=== PATIENT | male | born 1960 | race Caucasian/White ===

== ENCOUNTER 2019-10-17 11:04 | Emergency (ER) | payer MEDICARE, SELFPAY ==
[2019-10-17] VITALS (10 sets, daily range): BP systolic 133–215; BP diastolic 67–98; PULSE 58–81; RESP 15–18; TEMP 36.7–36.8; O2SAT 94–98
--- NOTE | ~2019-10-17 | XR_ITS ---
EXAMINATION: XR foot RT min 3V EXAM DATE: 10/17/2019 11:39 INDICATION: Infection, multiple foot sores. TECHNIQUE: Right foot dorsoplantar, lateral and oblique projections obtained and reviewed. There is no prior study for comparison. FINDINGS: Right metatarsal bones unremarkable. Sizable calcaneal enthesopathy posteriorly. There ar e no bony erosions identified. There are no acute fractures or dislocations identified. There is no subcutaneous gas. The soft tissue is unremarkable. There are no radiopaque foreign bodies. IMPRESSION: No acute osseous findings. Reviewed, dictated and finalized at location A. IMPRESSION: No acute osseous findings.
[2019-10-17 11:12] LABS: Glucose Point of Care > 500 (65-105)
[2019-10-17 11:33] LABS: Basophils Absolute Auto 0.1 K/mm3 (0.0-0.1); Basophils Percent Auto 0.6 % (0.2-1.2); Eosinophils Absolute Auto 0.1 K/mm3 (0-0.3); Eosinophils Percent Auto 1.2 % (0-4.4); Hematocrit 37.3 % (42.0-52.0); Immature Granulocyte Absolute 0.12 K/mm3 (0.00-0.031); Immature Granulocyte Percent A 1.1 % (0-0.5); Lymphocytes Percent Auto 16.9 % (18.3-44.2); Mean Corpuscular HGB Conc 34.9 g/dl (32-36); Mean Corpuscular Hemoglobin 29.9 pg (26-34); Mean Corpuscular Volume 85.7 fl (80-100); Mean Platelet Volume 10.7 fl (7.4-10.4); Monocytes Absolute Auto 0.9 K/mm3 (0.1-0.6); Monocytes Percent Auto 8.1 % (2.6-8.5); Neutrophils Absolute Auto 8.1 K/mm3 (1.3-6.7); Neutrophils Percent Auto 72.1 % (45.5-73.1); Platelet Count Result 250 k/mm3 (150-375); Red Blood Count 4.35 M/mm3 (4.6-6.20); Red Cell Distribution Width 11.7 % (11.5-14.5); White Blood Count 11.2 K/mm3 (4.5-10.0)
--- NOTE | 2019-10-17 11:33 | ED.RECABL ---
HPI - Recheck/Abnormal Lab/Rx General Chief Complaint: Recheck/Abnormal Lab/Rx Stated Complaint: High Blood Sugar Time Seen by Provider: 10/17/19 11:23 History of Present Illness HPI narrative: 59 yo male w/ h/o type II DM, peripheral vascular disease presents for non-healing wound. He has had a wound on his left second toe for a couple of weeks. He believes that it started when he kicked something, although he has severe neuropahty and he is nt sure. Since then the wound initially appeared to be improving, but has not progressed. Additionally he has a wound to the right lateral maleolus. He was previously seen by a vascular surgeon and told that he would likely need surgery for his PAD. Related Data Home Medications Medication Instructions Recorded Confirmed Januvia 100 mg PO DAILY 03/04/19 03/04/19 [place]-3 Fish Oil 1 cap PO DAILY 03/04/19 03/04/19 ascorbic acid (vitamin C) 1 g PO DAILY 03/04/19 03/04/19 aspirin 81 mg PO DAILY 03/04/19 03/04/19 atorvastatin 40 mg PO DAILY 03/04/19 03/04/19 clopidogrel 75 mg PO DAILY 03/04/19 03/04/19 divalproex 500 mg PO DAILY 03/04/19 03/04/19 glipizide 10 mg PO BID 03/04/19 03/04/19 melatonin 10 mg PO HS 03/04/19 03/04/19 omeprazole 20 mg PO DAILY 03/04/19 03/04/19 paroxetine HCl 20 mg PO DAILY 03/04/19 03/04/19 ramipril 10 mg PO DAILY 03/04/19 03/04/19 spiron[place]-hydrochlorothiaz 1 tablet PO DAILY 03/04/19 03/04/19 carvedilol [Coreg] 25 mg PO BIDWM 10/17/19 indapamide 2.5 mg PO DAILY 10/17/19 Allergies Allergy/AdvReac Type Severity Reaction Status Date / Time No Known Allergies Allergy Verified 10/17/19 11:10 Review of Systems Review of Systems: All systems reviewed & are unremarkable except as noted in HPI and below Constitutional: Constitutional: Denies chills and Denies fever(s) Cardiovascular: Cardiovascular: Denies chest pain Respiratory: Respiratory: Denies dyspnea Gastrointestinal: Gastrointestinal: Denies abdominal pain and Denies nausea Musculoskeletal: Musculoskeletal: Reports back pain Neurologic: Denies dizziness, Reports numbness and Denies weakness Endocrine: Endocrine: Denies polydipsia and Denies polyuria [facility] Past Medical History Medical History CAD (coronary artery disease) CVA (cerebral vascular accident) Multiple with residual left-sided weakness Diabetes mellitus Diabetic peripheral neuropathy 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 GERD (gastroesophageal reflux disease) HTN (hypertension) Myocardial infarction Peripheral artery disease Two stents in the left lower extremity 1 stent in the right lower extremity with peripheral stents placed sometime between 2012 2014 UTI (urinary tract infection) Vascular dementia Surgical History Surgical History H/O cardiac catheterization H/O heart artery stent 2018 S/P CABG x 18 November 2001 Family History Family History Mother Acute myocardial infarction Cerebrovascular accident Diabetes mellitus Hypertension Sibling Acute myocardial infarction AIDS Sibling AIDS Social History Social History Smoking status: Never smoker Second hand tobacco smoke exposure: Yes Alcohol intake: former Substance use: never Substance use type: does not use Gender identity (if verbalized by the patient): Male Spiritual care concerns: No Agree to blood products: Yes Exam Const: General: no acute distress, alert and ill appearing Orientation/consciousness: patient oriented x3 HENMT: Head: normal to inspection Neck: Neck: normal visual inspection and no lymphadenopathy Chest: Chest palpation & inspection: no tenderness Resp: Effort & Inspection: normal respiratory effort Auscultation: clear to auscultation bilaterally, no rales, no rhonchi and no wheezes Cardio: Jug
--- NOTE | 2019-10-17 11:36 | PC.NURSE ---
Doppler used and pedal pulses found in left foot, unable to obtain pedal pulses in right foot. Dr. Wyatt notified.
[2019-10-17 11:47] LABS: Alanine Aminotransferase 14 U/L (4-50); Albumin Level 4.2 g/dL (3.5-5.1); Alkaline Phosphatase 113 U/L (38-126); Anion Gap 17.8 mmol/L (7-16); Aspartate Amino Transferase 18 U/L (17-59); Bilirubin,Total 0.7 mg/dL (0.2-1.3); Blood Urea Nitrogen 27 mg/dL (9-20); Calcium 9.5 mg/dL (8.4-10.2); Carbon Dioxide 29 mmol/L (22-30); Chloride 85 mmol/L (98-107); Estimated CRCL calculation 55 ml/min; Estimated Glomerular Filt Rate 52; Magnesium 1.8 mg/dL (1.6-2.3); Phosphorus 4.7 mg/dL (2.5-4.5); Potassium 4.8 mmol/L (3.4-5.0); Sodium 127 mmol/L (137-145)
[2019-10-17 11:53] LABS: Beta-Hydroxybutyrate/Acetoacetate 0.71 mmol/L (0.02-0.27)
[2019-10-17 11:57] LABS: Glucose Point of Care > 500 (65-105)
[2019-10-17] MEDS: SODIUM CHLORIDE 0.9% IV 1,000 ML 999 ML IV CONT ×2 (12:00→14:07)
[2019-10-17 12:04] LABS: Glucose 613 mg/dL (75-110)
[2019-10-17] MEDS: INSULIN HUMAN REGULAR (*BKC) 100 UNITS/ML 12 UNITS IV PUSH (12:15)
--- NOTE | 2019-10-17 13:05 | PC.NURSE ---
Patient refusing to be straight cath at this time. Dr. Wyatt notified.
[2019-10-17 13:12] LABS: Glucose Point of Care 359 (65-105)
[2019-10-17 13:58] LABS: Add Urine Microscopic? YES; Appearance Urine Clear (Clear); Bilirubin Urine Negative (Negative); Blood Urine Negative (Negative); Color Urine Straw (Yellow); Glucose Urine UA 3+ mg/dL (Negative); Ketones Urine Trace mg/dL (Negative); Leukocyte Esterase Ur Negative LEU/UL (Negative); Nitrate Urine Negative (Negative); Protein Urine 1+ mg/dL (Negative); RBC Urine 0-2 /hpf (0-2); Specific Grav Ur 1.018 (1.001-1.035); Squamous Epithelial Cell Urine Rare /hpf (Few); Urobilinogen Urine Negative mg/dL (<2.0); WBC Urine 0-3 /hpf
[2019-10-17 15:08] LABS: Glucose Point of Care 262 (65-105)
[2019-10-17 18:40] LABS: Glucose Point of Care 217 (65-105)
--- NOTE | 2019-10-17 19:18 | PC.NURSE ---
report received at this time. pt resting on stretcher in NAD. pt denies any needs/concerns. remains hooked up to monitor, will continue to monitor pt for baseline status changes.
--- NOTE | 2019-10-17 21:24 | PC.NURSE ---
called [facility] for update on ETA. ETA [id number]
[2019-10-17 21:46] LABS: Glucose Point of Care 309 (65-105)
--- NOTE | 2019-10-17 21:46 | PC.NURSE ---
[facility] ETA update is [id number]
--- NOTE | 2019-10-17 22:25 | PC.NURSE ---
pt ambulatory to restroom at this time without difficulty.
--- NOTE | 2019-10-17 23:09 | PC.NURSE ---
pt resting on stretcher at this time-updated on poc and transport delay. denies questions/concerns. RR even and unlabored, pt in NAD.
--- NOTE | 2019-10-17 23:12 | PC.NURSE ---
called [facility] for update. ETA [id number]
[2019-10-17 23:38] LABS: Glucose Point of Care 350 (65-105)
[2019-10-17] MEDS: INSULIN ASPART (*BKC) 100 UNITS/ML 6 UNITS SUB-Q (23:41)
== END 2019-10-17 23:59 | disposition short-term general hospital (02) ==
LOC: ANHED 11:45
PROVIDERS: Emergency Provider Emergency Medicine; PCP Internal Medicine
DX: E11.65 Type 2 diabetes mellitus with hyperglycemia (principal); I77.1 Stricture of artery; I25.10 Atherosclerotic heart disease of native coronary artery without angina pectoris; I69.954 Hemiplegia and hemiparesis following unspecified cerebrovascular disease affecting left non-dominant side; E11.42 Type 2 diabetes mellitus with diabetic polyneuropathy; K21.9 Gastro-esophageal reflux disease without esophagitis; I25.2 Old myocardial infarction; Z95.5 Presence of coronary angioplasty implant and graft; I10 Essential (primary) hypertension; E11.51 Type 2 diabetes mellitus with diabetic peripheral angiopathy without gangrene; Z95.1 Presence of aortocoronary bypass graft; Z79.84 Long term (current) use of oral hypoglycemic drugs; Z79.82 Long term (current) use of aspirin
CPT/HCPCS: 36415; 73630; 80053; 81001; 82010; 82948; 83735; 84100; 85025; 96361; 96365; 96366; 96367; 96375; 99285; J0743; J1815; J3370; J7030

== ENCOUNTER 2022-09-14 19:52 | Inpatient (IN) | payer MEDICARE, SELFPAY ==
[2022-09-14] VITALS (9 sets, daily range): BP systolic 185–244; BP diastolic 87–97; PULSE 76–92; RESP 14–22; TEMP 37–37.6; O2SAT 90–98; BMI 31.4
--- NOTE | ~2022-09-14 | CT_ITS ---
EXAMINATION: CTA brain carotid DATE: 09/14/2022 20:47 INDICATION: CVA w/ L sided weakness TECHNIQUE: Computed tomographic angiography (CTA) of the head and neck was performed with 100 mL Omni paque-350 intravenous contrast. Automated exposure control and iterative reconstruction technique wer e employed. The dose-length product was 1188.67 mGy-cm. Maximum intensity projection and volume rende red 3D-reconstructions were created by the technologist on a separate workstation. COMPARISON: CT brain, same date CTA brain carotid 03/03/2019. FINDINGS: CTA HEAD: No large vessel occlusion, aneurysm, high flow vascular malformation, nidus or extravasation. Moderat e cavernous carotid calcifications, without severe stenosis. Patent cerebral veins. Symmetric parench ymal enhancement. CTA NECK: Aortic arch and proximal great vessels: Moderate arch ectasia. Mild arch calcification. Right common carotid, carotid bifurcation, and internal carotid artery: Calcified plaque at the bifur cation.There is 49% stenosis of the proximal right internal carotid artery relative to normal distal artery lumen diameter (NASCET criteria). Left common carotid, carotid bifurcation, and internal carotid artery: Calcified plaque at the bifurc ation.There is 0% stenosis of the proximal left internal carotid artery relative to normal distal art jovita lumen diameter (NASCET criteria). 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 Stable chronic short segment calcified severe stenosis of the mid left intradural vertebral artery. Other findings: Dilated central pulmonary arteries as can be seen with pulmonary arterial hypertensio n. Right dependent atelectasis/scar. Right dependent pleural thickening. IMPRESSION: No acute large vessel occlusion. 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 Chronic severe short segme nt stenosis of the left intradural vertebral artery. Calcified plaque at the right carotid bifurcation causing 49 % stenosis. Reviewed, dictated and finalized at location K. IMPRESSION: No acute large vessel occlusion. 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 Calcified plaque at the right carotid bifurcation causing 49 % stenosis.
--- NOTE | ~2022-09-14 | XR_ITS ---
EXAMINATION: XR hand LT 2V, XR wrist LT 2V DATE: 09/16/2022 08:34 INDICATION: Left hand and wrist swelling and erythema TECHNIQUE: 1. Posteroanterior and lateral views of the left wrist were obtained. 2. Dorsal palmar and lateral views of the left hand were obtained. COMPARISON: None. FINDINGS: Alignment of the hand and wrist is normal. No fracture identified. There is mild osteoarthritis jacky acterized by mild nonuniform joint space narrowing and small marginal osteophytes at the majority of the joints at the left hand and wrist. There are multiple juxta articular erosions with sclerotic mar gins and overhanging edges including at the lunate, capitate and scaphoid, the head of the second met acarpal and at the heads of the second and fourth proximal phalanges. Vascular calcification along th e ulnar artery. No focal soft tissue swelling. IMPRESSION: 1. Several juxta articular erosions at the left hand and wrist, disproportionate to the mild joint sp chuy narrowing, the latter which appears related to mild polyarticular osteoarthritis. This pattern an d appearance would be most consistent with gout or other crystalline arthropathy. Reviewed, dictated and finalized at location A. IMPRESSION: 1. Several juxta articular erosions at the left hand and wrist, disproportionat e to the mild joint space narrowing, the latter which appears related to mild p olyarticular osteoarthritis. This pattern and appearance would be most consiste nt with gout or other crystalline arthropathy.
--- NOTE | ~2022-09-14 | CT_ITS ---
EXAMINATION: CT brain wo con DATE: 09/14/2022 20:01 INDICATION: altered mental . TECHNIQUE: Computed tomography (CT) of the head was performed without intravenous contrast. The mA wa s adjusted according to patient size. Iterative reconstruction technique was employed. The dose-lengt h product was 681.00 mGy-cm. COMPARISON: CT brain carotid 03/03/2019; MR brain 03/05/2019. FINDINGS: No acute intracranial hemorrhage or extra-axial fluid collection. No hydrocephalus, mass, or herniation. No acute ischemic infarct. Unremarkable dural venous sinus attenuation. No acute osseous abnormality. The aerated spaces are clear. Moderate atrophy and chronic white matter change. Atherosclerotic intracranial calcification. Old foc al infarct in the bilateral basal ganglia, jamie, and right posterior white matter. IMPRESSION: No acute intracranial process. Results reported telephonically to Dr. Gomez by Dr. Lobo at 8:13 PM on 09/14/2022. Reviewed, dictated and finalized at location K. IMPRESSION: No acute intracranial process. Results reported telephonically to Dr. Gomez by Dr. Lobo at 8:13 PM on 023.
--- NOTE | ~2022-09-14 | CT_ITS ---
EXAMINATION: CT diagnostic chest wo con DATE: 09/15/2022 11:47 INDICATION: Cough TECHNIQUE: Computed tomography (CT) of the chest was performed without intravenous contrast. The dose -length product (DLP) was 771.92 mGy-cm. Automated exposure control and iterative reconstruction tech nique were employed. COMPARISON: None FINDINGS: There is mild dependent atelectasis of the lungs. Small pleural effusions are present. Ther e is no pneumothorax. The heart size is normal. There are no pathologically enlarged thoracic lymph n odes. Calcified coronary artery atherosclerosis is noted. There is [id number] bilateral gynecom astia. Calcified mediastinal lymph nodes are consistent with old granulomatous disease. There is a mi dline epigastric hernia containing fat. There are bridging osteophytes at multiple levels in the spin e, consistent with diffuse idiopathic skeletal hyperostosis (DISH). IMPRESSION: 1. Trace pleural effusions. Reviewed, dictated and finalized at location A. IMPRESSION: 1. Trace pleural effusions.
--- NOTE | ~2022-09-14 | MR_ITS ---
EXAMINATION: MR brain/brain stem wo con DATE: 09/15/2022 11:29 INDICATION: Stroke TECHNIQUE: Magnetic resonance imaging (MRI) of the brain and brainstem was performed without intraven ous contrast. Sequences included sagittal and axial T1-weighted SE, axial diffusion-weighted FS SE, a xial T2*-weighted GRE, axial T2-weighted FLAIR, and axial T2-weighted FSE. Apparent diffusion coeffic ient (ADC) maps were created. COMPARISON: Brain MR dated 03/05/[address] angiogram of the brain dated 09/04/2022 FINDINGS: There are no areas of restricted diffusion to suggest acute infarction. A couple small old lacunar in farcts in the right frontal lobe cam radiata. Additional small old lacunar infarcts at the left an d right sides of the jamie. There is a small region with cortical T2 hyperintensity more subtle T1 hyp erintensity along a gyrus the left occipital lobe most likely sequela of a small chronic infarct with secondary laminar necrosis. Small old lacunar infarct in the right frontal lobe cam radiata. No i ntracranial hemorrhage or abnormal intracranial mass lesion. There are scattered areas of nonspecific increased T2-weighted signal intensity in the cerebral white matter, predominantly involving the ben p and periventricular white matter. There are no intraparenchymal signal abnormalities seen on the ot her pulse sequences. The ventricles are symmetric and normal in size. There are no abnormal extra-axi al fluid collections. With the exception of the chronically thrombosed intracranial right vertebral a rtery, there are flow voids seen in the cerebral arteries on the T2-weighted sequences consistent wit h their expected patency. Visualized orbits and soft tissues are unremarkable. IMPRESSION: 1. No acute intracranial process. 2. Small old infarcts in the right frontal lobe white matter, bilateral jamie and left occipital lobe. 3. 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 Reviewed, dictated and finalized at location A. IMPRESSION: 1. No acute intracranial process. 2. Small old infarcts in the right frontal lobe white matter, bilateral jamie an d left occipital lobe. 3. 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
--- NOTE | ~2022-09-14 | US_ITS ---
EXAMINATION: US renal BI DATE: 09/15/2022 09:46 INDICATION: Acute kidney injury TECHNIQUE: Multiple grayscale and Doppler ultrasound images of the kidneys were obtained. COMPARISON: None. FINDINGS: The right kidney measures 11.0 x 6.8 x 5.7 cm. The left kidney measures 10.9 x 6.5 x 5.1 cm . The kidneys demonstrate normal parenchymal echogenicity. There is no hydronephrosis. The bladder is mildly distended but otherwise normal in appearance. IMPRESSION: 1. Normal kidneys without hydronephrosis. Reviewed, dictated and finalized at location A.
--- NOTE | ~2022-09-14 | XR_ITS ---
EXAMINATION: XR chest 1V portable Exam Date/Time: 09/14/2022 20:15 CDT HISTORY: possible CVA Comparison: 03/03/2019. RESULT: Lines, tubes, and devices: Intact sternotomy wires. Surgical clips over the mediastinum. Lungs and pleura: Low volumes. Lordotic positioning. Diffuse reticular perihilar opacities. Indistin ct vessels Cardiomediastinal silhouette: Stable. Other: No acute osseous or upper abdominal finding. IMPRESSION: Interstitial pulmonary edema. Reviewed, dictated and finalized at location K.
--- NOTE | 2022-09-14 19:54 | ECG_ITS ---
Measurements Intervals [place] Rate: 76 P: 19 GA: 176 QRS: -12 QRSD: 141 T: 27 QT: 437 QTc: 492 Interpretive Statements SINUS RHYTHM RIGHT BUNDLE BRANCH BLOCK ABNORMAL ECG COMPARED TO ECG 03/03/2019 20:40:05 NO SIGNIFICANT CHANGES Electronically Signed On 09-15-2022 7:26:58 CDT by Silas Souza D.O.
[2022-09-14 20:08] LABS: Basophils Absolute Auto 0.1 K/mm3 (0.0-0.1); Basophils Percent Auto 0.9 % (0.2-1.2); Eosinophils Absolute Auto 0.1 K/mm3 (0-0.3); Eosinophils Percent Auto 0.4 % (0-4.4); Hematocrit 41.1 % (42.0-52.0); Hemoglobin 13.8 g/dL (14.0-18.0); Immature Granulocyte Absolute 0.06 K/mm3 (0.00-0.031); Immature Granulocyte Percent A 0.5 % (0-0.5); Lymphocytes Absolute Auto 1.44 K/mm3 (0.9-3.2); Lymphocytes Percent Auto 11.5 % (18.3-44.2); Mean Corpuscular HGB Conc 33.6 g/dl (32-36); Mean Corpuscular Hemoglobin 29.3 pg (26-34); Mean Corpuscular Volume 87.3 fl (80-100); Mean Platelet Volume 10.4 fl (7.4-10.4); Monocytes Absolute Auto 0.3 K/mm3 (0.1-0.6); Monocytes Percent Auto 2.4 % (2.6-8.5); Neutrophils Absolute Auto 10.5 K/mm3 (1.3-6.7); Neutrophils Percent Auto 84.3 % (45.5-73.1); Platelet Count Result 221 k/mm3 (150-375); Red Blood Count 4.71 M/mm3 (4.6-6.20); Red Cell Distribution Width 12.2 % (11.5-14.5); White Blood Count 12.5 K/mm3 (4.5-10.0)
--- NOTE | 2022-09-14 20:15 | PC.NURSE ---
POC blood sugar was 242 performed by this RN upon arrival prior to pt being registered
[2022-09-14 20:18] LABS: Alanine Aminotransferase 23 U/L (6-50); Albumin Level 3.3 g/dL (3.5-5.1); Alkaline Phosphatase 120 U/L (38-126); Anion Gap 2 mmol/L (8-16); Aspartate Amino Transferase 27 U/L (17-59); Bilirubin,Total 0.7 mg/dL (0.2-1.3); Blood Urea Nitrogen 21 mg/dL (9-20); Calcium 8.4 mg/dL (8.4-10.2); Carbon Dioxide 26 mmol/L (22-30); Chloride 106 mmol/L (98-107); Estimated CRCL calculation 54 ml/min; Estimated Glomerular Filt Rate 52; Glucose 225 mg/dL (65-110); Potassium 4.9 mmol/L (3.4-5.0); Sodium 134 mmol/L (137-145)
[2022-09-14 20:19] LABS: INR 1.1; Prothrombin Time 14.3 Seconds (11.1-14.7)
[2022-09-14 20:20] LABS: Partial Thromboplastin Time 24.4 SECONDS (22.3-36.8)
[2022-09-14 20:39] LABS: Troponin I 0.063 ng/mL (0.000-0.034)
[2022-09-14 20:46] LABS: Lactic Acid Reflex 1.2 mmol/L (0.7-2.0)
[2022-09-14] MEDS: niCARdipine 20 MG/200 ML 20 MG/200 ML BAG 50 MG IV CONT (21:05)
--- NOTE | 2022-09-14 21:28 | PC.NURSE ---
agustín from Dr. Gomez to lower nicardipine drip to 2.5mg/hr
--- NOTE | 2022-09-14 21:29 | ED.NEUROSD ---
HPI - Neuro Symptoms/Deficit General Chief Complaint: Suspected CVA Stated Complaint: left sided weakness Time Seen by Provider: 09/14/22 19:55 History of Present Illness HPI Narrative: Patient with history of CHF, PAD, multiple CVAs with residual left-sided deficits last CVA 2 months ago presents here after his noticed that he seems more tired and confused than usual, she had tried to get him to eat lunch around 3 PM but he was not able to eat, he then threw up, she noticed that he seemed more weak, and then after she felt like his left arm was weaker than usual, brought him to the ER. Related Data Home Medications Medication Instructions Recorded Confirmed clopidogrel 75 mg tablet 75 mg PO DAILY 03/04/19 06/21/21 divalproex 500 mg tablet,delayed 500 mg PO DAILY 03/04/19 06/21/21 release omeprazole 20 mg capsule,delayed 20 mg PO DAILY 03/04/19 06/21/21 release paroxetine HCl 20 mg tablet 40 mg PO DAILY 03/04/19 09/14/22 ramipril 10 mg capsule 10 mg PO DAILY 03/04/19 09/14/22 furosemide 40 mg tablet 40 mg PO DAILY 06/21/21 06/21/21 insulin lispro 100 unit/mL 1 sliding scale dose subcut 06/21/21 06/21/21 subcutaneous pen USEASDIRECTD glipizide 5 mg tablet 5 mg PO BID 09/14/22 09/14/22 Allergies Allergy/AdvReac Type Severity Reaction Status Date / Time No Known Allergies Allergy Verified 10/17/19 11:10 Review of Systems Review of Systems: CONST: No fever. HEENT: No sore throat C/V: No chest pain RESP: No cough GI: Nausea and vomiting : No dysuria. M/S: No joint pain. SKIN: No rash. 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 GERD (gastroesophageal reflux disease) History of multiple cerebrovascular accidents (CVAs) HTN (hypertension) Myocardial infarction Peripheral artery disease Two stents in the left lower extremity 1 stent in the right lower extremity with peripheral stents placed sometime between 2012 2014 UTI (urinary tract infection) Vascular dementia Surgical History Surgical History H/O cardiac catheterization H/O heart artery stent 2018 S/P CABG x 18 November 2001 Family History Family History Mother Acute myocardial infarction Cerebrovascular accident Diabetes mellitus Hypertension Sibling Acute myocardial infarction AIDS Sibling AIDS Social History Social History Social History: patient lives with his who does work. Patient lives in a mobile home. Prior to this patient was independent but had some history is of falls Smoking status: Never smoker Second hand tobacco smoke exposure: Yes Alcohol intake: former Substance use: never Substance use type: does not use Gender identity (if verbalized by the patient): Male Spiritual care concerns: No Agree to blood products: Yes Exam Narrative: EXAMINATION OF ORGAN SYSTEMS/BODY AREAS: Constitutional: Vital signs per nursing GENERAL:[No acute distress but will retch every so often.] HEAD: Normal with no signs of head trauma. EYES: Barely crosses midline with leftward gaze (right gaze deviation) ENT: Hearing grossly intact; no facial asymmetry. Airway intact LUNGS: Nonlabored breathing. HEART: [Regular rate and rhythm] ABD: [Soft], [nontender to palpation] EXT: Moving right side normally, unable to move LUE or LLE against gravity SKIN: [No rashes or lesions.] NEURO: [Alert and oriented x 2. Left sided weakness as above. Sensation intact. Hemineglect on left side] PSYCH: Normal affect Course Vital Signs Vital
[2022-09-14] MEDS: ASPIRIN 81 MG CHEWABLE TABLET 243 MG PO (21:30)
--- NOTE | 2022-09-14 21:33 | PM.IMHP ---
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 History has been obtained from who is at bed side according to her patient had not been feeling well since waking up in am, slept more than usual did not want his breakfast and stated to complain of a headache later in the day it was also noted that he was more weak and became lethargic it was when EMS was called, and patient was rushed to the ED upon arrival to ED patient was found to have a SBP =244 patient was started on Nicardipine drip. Preliminary work up is significant for BNP upwards 7000, Bun/Cr /.4 a CTA was reported as: EXAMINATION: CTA brain carotid DATE: 09/14/2022 20:47 INDICATION: CVA w/ L sided weakness TECHNIQUE: Computed tomographic angiography (CTA) of the head and neck was performed with 100 mL Omnipaque-350 intravenous contrast. Automated exposure control and iterative reconstruction technique were employed. The dose-length product was 1188.67 mGy-cm. Maximum intensity projection and volume rendered 3D-reconstructions were created by the technologist on a separate workstation. COMPARISON: CT brain, same date CTA brain carotid 03/03/2019. FINDINGS: CTA HEAD: No large vessel occlusion, aneurysm, high flow vascular malformation, nidus or extravasation. Moderate cavernous carotid calcifications, without severe stenosis. Patent cerebral veins. Symmetric parenchymal enhancement. CTA NECK: Aortic arch and proximal great vessels: Moderate arch ectasia. Mild arch calcification. Right common carotid, carotid bifurcation, and internal carotid artery: Calcified plaque at the bifurcation.There is 49% stenosis of the proximal right internal carotid artery relative to normal distal artery lumen diameter (NASCET criteria).? Left common carotid, carotid bifurcation, and internal carotid artery: Calcified plaque at the bifurcation.There is 0% stenosis of the proximal left internal carotid artery relative to normal distal artery lumen diameter (NASCET criteria). 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 Stable chronic short segment calcified severe stenosis of the mid left intradural vertebral artery. Other findings: Dilated central pulmonary arteries as can be seen with pulmonary arterial hypertension. Right dependent atelectasis/scar. Right dependent pleural thickening. IMPRESSION: No acute large vessel occlusion. 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 Chronic severe short segment stenosis of the left intradural vertebral artery. Calcified plaque at the right carotid bifurcation causing 49 % stenosis. EXAMINATION: CT brain wo con DATE: 09/14/2022 20:01 INDICATION: altered mental . TECHNIQUE: Computed tomography (CT) of the head was performed without intravenous contrast. The mA was adjusted according to patient size. Iterative reconstruction technique was employed. The dose-length product was 681.00 mGy-cm. COMPARISON: CT brain carotid 03/03/2019; MR brain 03/05/2019. FINDINGS: No acute intracranial hemorrhage or extra-axial fluid collection. No hydrocephalus, mass, or herniation. No acute ischemic infarct. Unremarkable dural venous sinus attenuation. No acute osseous abnormality. The? aerated spaces are clear. Moderate atrophy and chronic white matter change. Atherosclerotic intracranial calcification. Old focal infarct in the bilateral basal ganglia, jamie, and right posterior white matter. IMPRESSION:? No acute intracranial process. EXAMINATION:? XR chest 1V portable Exam Date/Time:? 09/14/2022 20:15 CDT HISTORY: possible CVA ? Comparison:? 03/03/2019. RESULT: Lines, tubes, and devices:? Intact sternotomy wires. Surgical clips over the mediastinum. Lungs and pleura:? Low volumes. Lordotic positioning
[2022-09-14] MEDS: ONDANSETRON INJ 4 MG/2 ML VIAL IV PUSH (21:39)
[2022-09-14] MEDS: FUROSEMIDE INJ 40 MG/4 ML VIAL IV PUSH (21:50)
[2022-09-14 21:56] LABS: NT Pro B Type Natriuretic Pept 7110 pg/mL (19.9-100)
[2022-09-14 22:44] LABS: Lactic Acid Reflex 1.1 mmol/L (0.7-2.0)
--- NOTE | 2022-09-14 22:48 | ADMGEN ---
This patient, Robert Rendon, was admitted to Intensive Care Unit-9. Patient/family oriented to hospital policies and general routines including ID bracelet, bed and alarms, visiting hours, pain management, procedures, bathroom and other care routines, personal items, smoking policy, room service/diet, and visiting hours. Information on how to activate the Rapid Response Team has been discussed. Patient/Family are encouraged to report perceived risks to care and to ask questions if they do not understand what they are told or what they should do.
[2022-09-15] VITALS (17 sets, daily range): BP systolic 126–187; BP diastolic 59–78; PULSE 47–81; RESP 12–20; TEMP 36.5–37.1; O2SAT 92–99
--- NOTE | 2022-09-15 | ECHO_ITS ---
Patient Info Name: Robert Rendon Age: 61 years : 1960 Gender: Male Ht: 66 in Wt: 194 lbs BSA: 2.05 m2 HR: 52 bpm BP: 180 / 171 mmHg Heart Rhythm: Sinus Rhythm Technical Quality: Fair Exam Date: 09/15/2022 7:51 AM Exam Location: [facility] Pulmonary Exam Room: ICU9 Patient Status: Inpatient Admit Date: 09/14/2022 Staff Ordering Physician: Taina Goss MD Radio Repairer Domestic: Candace Shelton RDCS Attending Provider: Taina Goss MD Referring Physician: Ana Paula LINDSEY; Exam Type: CA echo dop color flow w con Study Info Indications - HYPERTENSIVE EMERGENCY - HX/O CVA Complete two-dimensional, color flow and Doppler transthoracic echocardiogram is performed with contrast to opacify the left ventricle and to improve the deliniation of the left ventricle endocardial borders. Contrast/Agitated Saline Contrast/Ag. Saline: Definity Amount: 2.00 ml Administered By: Candace Shelton [facility] Existing IV Access: Yes IV Access Condition: patent with no signs of infiltration Summary 1. Technically difficult study. Definity echo contrast administered. 2. Left ventricular chamber dimension is normal. 3. Left ventricular systolic function is normal, estimated at 60-65%. 4. There is moderate asymmetric septal increased left ventricular wall thickness. 5. The left ventricular diastolic function is grade I diastolic dysfunction. 6. There is no thrombus visualized in the left ventricle. 7. Well-circumscribed, fixed echogenicity on the posterior mitral valve leaflet. This may be consistent with severe mitral annular calcification, however, given its bright echogenicity and well-circumscribed appearance cannot rule out vegetation. Clinical correlation advised. Consider transesophageal echocardiogram if clinically indicated. 8. There is trace mitral valve regurgitation. Recommendations * Consider transesophageal echocardiogram if clinically indicated. Left Ventricle Left ventricular chamber dimension is normal. Left ventricular systolic function is normal, estimated at 60-65%. There is moderate asymmetric septal increased left ventricular wall thickness. The left ventricular diastolic function is grade I diastolic dysfunction. There is no thrombus visualized in the left ventricle. Technically difficult study. Definity echo contrast administered. Right Ventricle Right ventricular chamber dimension is not well visualized. Left Atria Left atrial chamber dimension is moderately enlarged. Right Atria Right atrial chamber dimension is not well visualized. Aortic Valve The aortic valve is not well visualized. There is no aortic valve stenosis. Pulmonic Valve The pulmonic valve is not well visualized. There is trace pulmonic regurgitation. Mitral Valve The mitral valve has thickened leaflets. There is trace mitral valve regurgitation. Well-circumscribed, fixed echogenicity on the posterior mitral valve leaflet. This may be consistent with severe mitral annular calcification, however, given its bright echogenicity and well-circumscribed appearance cannot rule out vegetation. Clinical correlation advised. Consider transesophageal echocardiogram if clinically indicated. The mitral valve annulus is severely calcified. Tricuspid Valve The tricuspid valve leaflets are normal. There is trace tricuspid valve regurgitation. No pulmonary hypertension, estimated pulmonary arterial systolic pressure is 30 mmHg. Pericardium/Pleural The pericardium appears not well visualized. Inferior Vena Cava Normal inferior ve
[2022-09-15] MEDS: carvediloL 25 MG TABLET PO ×2 (00:47→08:27)
[2022-09-15] MEDS: ATORVASTATIN 40 MG TABLET 80 MG PO ×2 (00:47→20:25)
[2022-09-15] MEDS: PERFLUTREN LIPID MICROSPHERES 1.5 ML VIAL DILUTED TO 10 ML TOTAL VOLUME IV PUSH (08:15)
--- NOTE | 2022-09-15 08:26 | WPDCNINT ---
Assessment and Plan Assessment and plan (1) AMS (altered mental status): Code(s): R41.82 - Altered mental status, unspecified Status: Acute Assessment and Plan: Hypertensive encephalopathy versus TIA versus CVA Patient has significantly improved at this time and is AO x3 and appears to be close to baseline CT head and CTA head and neck were unremarkable for any new change Check TSH and ammonia Check UA Check MRI brain Echo done and report pending Neurology has been consulted (2) Acute kidney injury: Code(s): N17.9 - Acute kidney failure, unspecified Status: Acute Assessment and Plan: Patient presented with creatinine of 1.4 which was marginally elevated as compared to creatinine recorded last year although his BUN was low creatinine further increased to 1.9 this morning Could be secondary to uncontrolled blood pressure, patient also received Lasix and contrast for the CT Non IV fluids due to congestive heart failure Blood pressure control Check CK urine electrolytes and renal ultrasound Hold YOGI-inhibitor Monitor urine output electrolytes and creatinine (3) Hypertensive emergency: Code(s): I16.1 - Hypertensive emergency Status: Acute Assessment and Plan: Patient presented with systolic blood pressure in 240s and was started on nicardipine infusion Nicardipine has been weaned off Will keep blood pressure 190s for 1st 24 hours Continue Coreg P.r.n. hydralazine Will start Norvasc from p.m. (4) Atrial fibrillation: Code(s): I48.91 - Unspecified atrial fibrillation Status: Acute Assessment and Plan: Continue Coreg Ventricular rate is controlled Patient not on any anticoagulation as an outpatient. Patient's states that he was on Coumadin until 1 year ago and was discontinued. She is not sure why it was discontinued but when further inquired she did admit the patient was having issues with falls and was getting out of bed at night. When he was admitted in rehab his bed was placed lowered to the ground to minimize risk of falls. Although patient is a candidate for anticoagulation considering atrial fibrillation, history of CVAs I suspected was discontinued due to high risk of bleeding from falls. Continue Plavix at this time (5) Coronary artery disease: Code(s): I25.10 - Atherosclerotic heart disease of [place] coronary artery without angina pectoris Status: Acute Assessment and Plan: Continue Plavix beta-mary and statin Hold YOGI-inhibitor due to elevated creatinine His troponin level was mildly elevated. Will continue serial troponin EKG shows sinus rhythm (6) Type 2 diabetes mellitus with hyperglycemia: Qualifiers: Diabetes mellitus termite control servicer insulin use: without snf use Qualified Code(s): E11.65 - Type 2 diabetes mellitus with hyperglycemia Code(s): E11.65 - Type 2 diabetes mellitus with hyperglycemia Status: Acute Assessment and Plan: Sliding scale insulin Resume diabetic diet (7) GERD (gastroesophageal reflux disease): Code(s): K21.9 - Gastro-esophageal reflux disease without esophagitis Status: Acute Assessment and Plan: Continue PPI (8) Constipation by delayed colonic transit: Code(s): K59.01 - Slow transit constipation Status: Acute Assessment and Plan: Colace and p.r.n. MiraLax (9) Leukocytosis: Code(s): D72.829 - Elevated white blood cell count, unspecified Status: Acute Assessment and Plan: Patient mostly afebrile but his states problems with swallowing and coughing episode Chest x-ray suggest pulmonary edema for which he was given Lasix ? aspiration check procalcitonin UA with micro and CT chest Speech evaluation Hold antibiotics at this time Plan DVT prophylaxis -SCDs under blood pressure is adequately controlled Stress ulcer prophylaxis -PPI Nutrition -consult speech Code Status - Full Code Total Criti
[2022-09-15] MEDS: PARoxetine 20 MG TABLET 40 MG PO (08:27)
[2022-09-15] MEDS: CHOLECALCIFEROL 400 UNITS TABLET (VIT D) PO (08:27)
[2022-09-15] MEDS: PANTOPRAZOLE 40 MG TABLET PO (08:27)
[2022-09-15] MEDS: CLOPIDOGREL BISULFATE 75 MG TABLET PO (08:28)
[2022-09-15 08:43] LABS: Hematocrit 37.2 % (42.0-52.0); Hemoglobin 12.6 g/dL (14.0-18.0); Mean Corpuscular HGB Conc 33.9 g/dl (32-36); Mean Corpuscular Hemoglobin 29.8 pg (26-34); Mean Corpuscular Volume 87.9 fl (80-100); Mean Platelet Volume 10.7 fl (7.4-10.4); Platelet Count Result 213 k/mm3 (150-375); Red Blood Count 4.23 M/mm3 (4.6-6.20); Red Cell Distribution Width 12.3 % (11.5-14.5); White Blood Count 11.8 K/mm3 (4.5-10.0)
--- NOTE | 2022-09-15 08:43 | PM.IMPN ---
Progress Note: A&P Assessment and Plan (1) Hypertensive emergency: Code(s): I16.1 - Hypertensive emergency Status: Acute Assessment and Plan: Admit to ICU, on Nicardipine drip Permissive hypertension, continuous telemetry Continuous pulse ox, supportive care 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): Code(s): I69.322 - Dysarthria following cerebral infarction Status: Acute Assessment and Plan: Appears to be resolving (3) Atrial fibrillation: Code(s): I48.91 - Unspecified atrial fibrillation Status: Acute Assessment and Plan: Bradycardic right now (4) Left-sided weakness: Code(s): R53.1 - Weakness Status: Acute Assessment and Plan: Appreciate neurology consultation (5) AMS (altered mental status): Code(s): R41.82 - Altered mental status, unspecified Status: Acute Assessment and Plan: Appreciate die sinking machine operator consultation (6) Acute kidney injury superimposed on CKD: Code(s): N17.9 - Acute kidney failure, unspecified; N18.9 - Chronic kidney disease, unspecified Status: Acute Assessment and Plan: Renal ultrasound within normal limits Creatinine appears to be worsening Defer further management to die sinking machine operator Plan DVT prophylaxis with SCDs GI prophylaxis not indicated Code status full code Subjective Date/time seen: 09/15/22 08:43 Interval history: No overnight events noted. No chest pain or shortness of breath. No nausea, vomiting or diarrhea. No fevers or chills. Review of Systems Review of Systems: 12 point review of systems was assessed and was negative except as noted in the HPI Exam Narrative: General: No acute distress, alert and oriented per baseline, now weaned to room air HEENT: Atraumatic, normocephalic, mucous membranes moist CV: Bradycardic, S1, S2 Lungs: Unlabored breathing noted Abdomen: Soft, nontender, nondistended Extremities: Normal to inspection Skin: No rashes noted, no lesions or wounds seen Objective Data Vital Signs Vital Signs: Vital Signs - 24 hr 09/14/22 19:59 09/14/22 20:00 09/14/22 21:05 Temperature 99.7 F H Pulse Rate 76 92 Respiratory Rate 22 H Blood Pressure 244/93 H 237/97 H Pulse Oximetry 91 91 Oxygen Delivery Room Air Oxygen Flow Rate 09/14/22 21:27 09/14/22 20:31 09/14/22 21:32 Temperature Pulse Rate 78 86 Respiratory Rate 17 19 Blood Pressure 242/96 H 191/87 H Pulse Oximetry 98 93 90 Oxygen Delivery Nasal Cannula Oxygen Flow Rate 4 09/14/22 22:02 09/14/22 23:00 09/15/22 00:00 Temperature Pulse Rate 83 Respiratory Rate 14 Blood Pressure 185/96 H Pulse Oximetry 95 96 98 Oxygen Delivery Nasal Cannula Nasal Cannula Oxygen Flow Rate 2 2 09/15/22 00:00 09/15/22 00:00 09/15/22 00:47 Temperature 98.8 F Pulse Rate 81 81 77 Respiratory Rate 20 Blood Pressure 175/77 H Pulse Oximetry 98 Oxygen Delivery Oxygen Flow Rate 09/15/22 02:00 09/15/22 02:00 09/14/22 22:25 Temperature 98.6 F Pulse Rate 68 68 87 Respiratory Rate 17 18 Blood Pressure 182/72 H 189/88 H Pulse Oximetry 98 95 Oxygen Delivery Oxygen Flow Rate 09/15/22 04:00 09/15/22 04:00 09/15/22 04:00 Temperature 98.3 F Pulse Rate 67 67 Respiratory Rate 14 Blood Pressure 177/76 H Pulse Oximetry 99 99 Oxygen Delivery Nasal Cannula Oxygen Flow Rate 2 09/15/22 06:00 09/15/22 06:00 09/15/22 08:27 Temperature Pulse Rate 65 65 59 L Respiratory Rate 14 Blood Pressure 180/71 H Pulse Oximetry 99 Oxygen Delivery Oxygen Flow Rate Intake/Output Intake/Output: Intake & Output 09/12/22 09/13/22 09/14/22 09/15/22 23:59 23:59 23:59 23:59 Intake Total 240 Output Total 650 Balance -410 Meds/Results Medications: Active Medications Generic Name Dose Route Start Last Admin Trad
[2022-09-15 08:49] LABS: Ammonia < 9 umol/L (9-30)
[2022-09-15 08:53] LABS: Alanine Aminotransferase 20 U/L (6-50); Alkaline Phosphatase 98 U/L (38-126); Anion Gap 4 mmol/L (8-16); Aspartate Amino Transferase 23 U/L (17-59); Bilirubin,Total 0.7 mg/dL (0.2-1.3); Blood Urea Nitrogen 27 mg/dL (9-20); Calcium 7.8 mg/dL (8.4-10.2); Carbon Dioxide 28 mmol/L (22-30); Chloride 101 mmol/L (98-107); Estimated CRCL calculation 39 ml/min; Estimated Glomerular Filt Rate 36; Glucose 161 mg/dL (65-110); Potassium 4.4 mmol/L (3.4-5.0); Sodium 133 mmol/L (137-145)
[2022-09-15] MEDS: polyethylene glycoL 3350 17 GM POWD.PACK PO (09:03)
[2022-09-15 09:06] LABS: Creatine Kinase 57 U/L (55-170)
[2022-09-15 09:16] LABS: Troponin I 0.684 ng/mL (0.000-0.034)
[2022-09-15 09:30] LABS: Procalcitonin 0.3 ng/mL
--- NOTE | 2022-09-15 10:25 | WPDNEURCNPN ---
Assessment and Plan Assessment and plan (1) Left-sided weakness: Code(s): R53.1 - Weakness Status: Acute (2) AMS (altered mental status): Code(s): R41.82 - Altered mental status, unspecified Status: Acute (3) Hypertensive emergency: Code(s): I16.1 - Hypertensive emergency Status: Acute (4) History of multiple cerebrovascular accidents (CVAs): Code(s): Z86.73 - Personal history of transient ischemic attack (TIA), and cerebral infarction without residual deficits Status: Acute (5) Atrial fibrillation: Code(s): I48.91 - Unspecified atrial fibrillation Status: Acute Plan Robert Rendon is a 61 year old male with a history of hypertension, diabetes, prior stroke, atrial fibrillation, presenting due to concerns for new stroke due to worsening left sided weakness and change in mental status. Could be stroke recrudescence fror very high blood pressures initially vs acute stroke. Patient is not on anticoagulation despite history of prior stroke and anticoagulation presumably due to fall risk. If there is acute stroke, will need to consider switching DAPT to anticoagulation. - MRI brain pending - Surface echocardiogram is pending - Continue aspirin and Plavix - Continue Lipitor 80mg daily Consult date: 09/15/22 Reason for consult: Concern for stroke HPI: Robert Rendon is a 61 year old male with a history of hypertension, diabetes, prior stroke, atrial fibrillation, presenting due to concerns for new stroke. Patient was brought in after noted him to be more lethargic and not acting like himself, also complaining of a headache. was also concerned that his left side seemed weaker than usual (at baseline the left side is week due to prior stroke). EMS was called and was taken to the ED where his blood pressure was in the 240s systolic. His BNP was in the 7000s. CT head showed no acute process but showed old infarcts in the bilateral basal ganglia, jamie, and right posterior subcortical region. 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 He was started on a nicardipine drip and admitted to the ICU. He is currently on Plavix 75mg daily. He did receive a dose of aspirin on admission. He is on Lipitor 80mg daily. Per Dr. Daley's note, patient was previously on warfarin but was discontinued due to patient's risk of falls. He is not on any anticoagulation currently. MRI brain has been ordered and is pending. Blood pressure has been in the 160s mostly. He is now off nicardipine drip. Of note, patient was found to have R pontine infarct. He was admitted to [facility] at that time. Per chart review, Neurology felt that the stroke was secondary to small vessel disease rather than cardioembolic, so he was started on DAPT and statin at that time. 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
[2022-09-15] MEDS: ONDANSETRON INJ 4 MG/2 ML VIAL IV PUSH ×3 (13:10→23:08)
[2022-09-15] MEDS: INSULIN ASPART (*BKC) 100 UNITS/ML SUB-Q (13:22)
[2022-09-15 13:24] LABS: Glucose Point of Care 232 mg/dl (65-105)
--- NOTE | 2022-09-15 13:48 | PC.NURSE ---
Report given to Linnette goldman [facility]
--- NOTE | 2022-09-15 14:48 | PCSTNOTE ---
Bedside swallowing evaluation completed. Oral peripheral examination performed, oral motor strength, control, and range of motion within functional limits except for labially on left, weakness is present. Speech intelligibility is WFL. Patient was given trials of thin liquid by spoon and cup, pureed consistency food by spoon, and solid food (piece of sandwich) by hand. Patient was unable to chew sandwich piece adequately to form a bolus and required a drink of liquid to swallow. No signs of aspiration or penetration observed. Please note that silent aspiration cannot be ruled out at bedside and can only be evaluated with a modified barium swallow study. Recommendations: minced moist diet, mildly thickened liquids. Swallowing precaution recommendations placed in chart. Auditory comprehension and expressive language skills are within functional limits. No further speech therapy is recommended at this time. Thank you for the referral of this patient.
--- NOTE | 2022-09-15 15:24 | PCPTNOTE ---
Attempted to see for PT evaluation, pt and spouse refused at this time d/t nausea and vomiting. Will continue to follow.
[2022-09-15 15:58] LABS: Troponin I 0.351 ng/mL (0.000-0.034)
[2022-09-15 16:28] LABS: Glucose Point of Care 131 mg/dl (65-105)
[2022-09-15] MEDS: amLODIPine BESYLATE 5 MG TABLET 10 MG PO (17:38)
[2022-09-15] MEDS: LIDOCAINE HCL 2% GEL UROJET 10 ML PKG MUCOUS MEM (17:38)
[2022-09-15 18:09] LABS: Appearance Urine Cloudy (Clear); Bacteria Urine None Seen /hpf; Bilirubin Urine Negative (Negative); Blood Urine 2+ (Negative); Color Urine Yellow (Yellow); Creatinine Urine 90.2 mg/dL; Glucose Urine UA 1+ mg/dL (Negative); Hyaline Casts Urine Present /lpf; Ketones Urine Negative (Negative); Leukocyte Esterase Ur Negative LEU/UL (Negative); Nitrate Urine Positive (Negative); Protein Urine 4+ mg/dL (Negative); Squamous Epithelial Cell Urine None seen /hpf (Few); Urobilinogen Urine 0.2 mg/dL (<2.0); pH Urine 5.5 (5.0-9.0)
[2022-09-15 18:10] LABS: Add Urine Microscopic? YES; Sodium Urine Random 44 meq/L; Specific Grav Ur 1.038 (1.001-1.035)
[2022-09-15 19:45] LABS: Glucose Point of Care 157 mg/dl (65-105)
[2022-09-15 21:20] LABS: Troponin I 0.295 ng/mL (0.000-0.034)
[2022-09-16] VITALS (15 sets, daily range): BP systolic 89–165; BP diastolic 53–125; PULSE 44–74; RESP 12–18; TEMP 36.1–37.1; O2SAT 93–98
[2022-09-16 04:35] LABS: Hematocrit 33.2 % (42.0-52.0); Hemoglobin 11.1 g/dL (14.0-18.0); Mean Corpuscular HGB Conc 33.4 g/dl (32-36); Mean Corpuscular Hemoglobin 29.8 pg (26-34); Mean Platelet Volume 11.4 fl (7.4-10.4); Platelet Count Result 188 k/mm3 (150-375); Red Blood Count 3.73 M/mm3 (4.6-6.20); Red Cell Distribution Width 12.2 % (11.5-14.5); White Blood Count 10.5 K/mm3 (4.5-10.0)
[2022-09-16 04:48] LABS: Alanine Aminotransferase 17 U/L (6-50); Albumin Level 2.6 g/dL (3.5-5.1); Alkaline Phosphatase 81 U/L (38-126); Anion Gap 3 mmol/L (8-16); Aspartate Amino Transferase 23 U/L (17-59); Bilirubin,Total 0.7 mg/dL (0.2-1.3); Blood Urea Nitrogen 36 mg/dL (9-20); Calcium 7.8 mg/dL (8.4-10.2); Carbon Dioxide 29 mmol/L (22-30); Chloride 99 mmol/L (98-107); Estimated CRCL calculation 29 ml/min; Estimated Glomerular Filt Rate 25; Glucose 226 mg/dL (65-110); Magnesium 1.8 mg/dL (1.6-2.3); Potassium 4.2 mmol/L (3.4-5.0); Sodium 131 mmol/L (137-145)
[2022-09-16 07:52] LABS: Glucose Point of Care 239 mg/dl (65-105)
--- NOTE | 2022-09-16 08:09 | WPDINTPN ---
Progress Note: A&P Assessment and Plan (1) AMS (altered mental status): Code(s): R41.82 - Altered mental status, unspecified Status: Acute Assessment and Plan: Hypertensive encephalopathy versus TIA versus CVA Patient has significantly improved at this time and is AO x3 and appears to be close to baseline CT head and CTA head and neck were unremarkable for any new change Normal TSH and ammonia UA suggests UTI MRI brain IMPRESSION: 1. No acute intracranial process. 2. Small old infarcts in the right frontal lobe white matter, bilateral jamie and left occipital lobe. 3. 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 Echo done and report below Neurology following (2) Acute kidney injury: Code(s): N17.9 - Acute kidney failure, unspecified Status: Acute Assessment and Plan: Patient presented with elevated creatinine of 1.4 which has been gradually getting worse This could be secondary to uncontrolled blood pressure but patient also received Lasix and contrast for the CTA He was not given IV fluids due to congestive heart failure but was given Lasix Continue blood pressure control Normal CK and renal ultrasound Electrolytes suggest prerenal. Will give cautious amount of IV fluids over next 24 hours Hold YOGI-inhibitor Monitor urine output electrolytes and creatinine Consult nephrology (3) Hypertensive emergency: Code(s): I16.1 - Hypertensive emergency Status: Acute Assessment and Plan: Patient presented with systolic blood pressure in 240s and was started on nicardipine infusion Nicardipine has been weaned off Since patient has been here for more than 24 hours will improved control Continue Coreg and Norvasc Continue p.r.n. hydralazine (4) Atrial fibrillation: Code(s): I48.91 - Unspecified atrial fibrillation Status: Acute Assessment and Plan: Continue Coreg but decrease dose as patient is bradycardic Patient not on any anticoagulation as an outpatient. Patient's states that he was on Coumadin until 1 year ago and was discontinued. She is not sure why it was discontinued but when further inquired she did admit the patient was having issues with falls and was getting out of bed at night. When he was admitted in rehab his bed was placed lowered to the ground to minimize risk of falls. Although patient is a candidate for anticoagulation considering atrial fibrillation, history of CVAs I suspected was discontinued due to high risk of bleeding from falls. Continue Plavix at this time (5) Coronary artery disease: Code(s): I25.10 - Atherosclerotic heart disease of [place] coronary artery without angina pectoris Status: Acute Assessment and Plan: Continue Plavix beta-mary and statin Hold YOGI-inhibitor due to elevated creatinine His troponin level was mildly elevated. EKG shows sinus rhythm (6) Type 2 diabetes mellitus with hyperglycemia: Qualifiers: Diabetes mellitus middle or intermediate school principal insulin use: without middle or intermediate school principal use Qualified Code(s): E11.65 - Type 2 diabetes mellitus with hyperglycemia Code(s): E11.65 - Type 2 diabetes mellitus with hyperglycemia Status: Acute Assessment and Plan: Sliding scale insulin. Resume glipizide Resume diabetic diet (7) GERD (gastroesophageal reflux disease): Code(s): K21.9 - Gastro-esophageal reflux disease without esophagitis Status: Acute Assessment and Plan: Continue PPI (8) Constipation by delayed colonic transit: Code(s): K59.01 - Slow transit constipation Status: Acute Assessment and Plan: Colace and p.r.n. MiraLax (9) Leukocytosis: Code(s): D72.829 - Elevated white blood cell count, unspecified Status: Acute Assessment and Plan: Patient mostly afebrile but his states problems with swallowing and coughing episode Chest x-ray suggest pulmonary edema for which he was given Lasix CT scan of the c
[2022-09-16] MEDS: SODIUM CHLORIDE 0.9% IV 1,000 ML 100 ML IV CONT ×2 (08:25→17:48)
[2022-09-16] MEDS: INSULIN ASPART (*BKC) 100 UNITS/ML SUB-Q ×4 (08:48→21:04)
[2022-09-16] MEDS: PANTOPRAZOLE 40 MG TABLET PO (08:53)
[2022-09-16] MEDS: ASPIRIN 325 MG ENTERIC TABLET PO (08:53)
[2022-09-16] MEDS: CLOPIDOGREL BISULFATE 75 MG TABLET PO (08:53)
[2022-09-16] MEDS: CHOLECALCIFEROL 400 UNITS TABLET (VIT D) PO (08:53)
[2022-09-16] MEDS: PARoxetine 20 MG TABLET 40 MG PO (08:53)
[2022-09-16] MEDS: carvediloL 12.5 MG TABLET PO ×2 (09:33→21:08)
[2022-09-16] MEDS: VANCOMYCIN 1,250 MG/NS 250 ML 1,250 MG/250 ML BAG 166.67 MG IVPB (10:24)
[2022-09-16 11:47] LABS: Glucose Point of Care 220 mg/dl (65-105)
[2022-09-16] MEDS: VANCOMYCIN 1,000 MG/NS 250 ML 1,000 MG/250 ML BAG 250 MG IVPB (11:50)
--- NOTE | 2022-09-16 11:58 | PM.CNNEP ---
Assessment and Plan Assessment and plan (1) Acute kidney injury: Code(s): N17.9 - Acute kidney failure, unspecified Status: Acute Assessment and Plan: The patient has acute kidney injury. Renal ultrasound is unremarkable. Urine electrolytes are non pre renal. Urinalysis shows a bladder infection and some hematuria. Etiology could be 1 or more of many possibilities. The patient has a bladder infection. Sometimes infection can cause renal insufficiency. He does not seem to have systemic affects of this though though I think this is a little bit unlikely. Severe hypertension can cause hypertensive nephrosis which can lead to a temporary rise in creatinine which improves with control of the blood pressure. The patient had contrast which can cause the creatinine to rise. His creatinine was already high when he got to the hospital however so there might have been something else going on such as 1 of the above 2. Rapid control of blood pressure can do this as well but his blood pressure has been consistently below 160 to invoke this possibility. I agree with his goal blood pressure being around 160 for the next few days. Will try learn more about how his outpatient blood pressure has been. Glomerulonephritis or infiltrative disease is are unlikely in this scenario. However it is possible that primary kidney disease could have made the blood pressure twan rocket. So, just to be complete, will check some labs looking for these. (2) Hypertension, uncontrolled: Code(s): I10 - Essential (primary) hypertension Status: Acute Assessment and Plan: Blood pressure was very high when he got here. It looks better now will shoot for a systolic of about 160. Dr. Cruz already adjusted the medicines today. We can check a renal in and an aldosterone to make sure he does not have a secondary cause for the high blood pressure. (3) Type 2 diabetes mellitus with hyperglycemia: Qualifiers: Diabetes mellitus senior living insulin use: without senior living use Qualified Code(s): E11.65 - Type 2 diabetes mellitus with hyperglycemia Code(s): E11.65 - Type 2 diabetes mellitus with hyperglycemia Status: Acute Assessment and Plan: Hospitalist/child care education coordinator will manage this (4) Coronary artery disease: Code(s): I25.10 - Atherosclerotic heart disease of [place] coronary artery without angina pectoris Status: Acute Assessment and Plan: No chest pain. S post bypass. (5) Atrial fibrillation: Code(s): I48.91 - Unspecified atrial fibrillation Status: Acute Assessment and Plan: He is in sinus rhythm right now but the nurse says he has been in an out of AFib this admission (6) UTI (urinary tract infection): Code(s): N39.0 - Urinary tract infection, site not specified Status: Acute Assessment and Plan: Cultures are pending and he is on antibiotic History of Present Illness Reason for Consult Consult date: 09/16/22 Chief Complaint Chief complaint: cva w l sided deficits, htn, elev trop History of Present Illness Narrative: Robert is a very pleasant 61-year-old gentleman with multiple medical problems including stroke with left-sided hemiplegia, hypertension, congestive heart failure, coronary disease, ID, coronary artery bypass graft, intermittent atrial fibrillation, diabetes, bipolar, GERD, peripheral arterial disease status post left lower extremity stents, UTI, and vascular dementia. The patient lives at home and his takes care of him. He says his blood pressures there are reasonably well controlled. Occasionally he says that he has a spike in his blood pressure which leads to confusion. This is happened several times in the past he says. On the day of admission the patient woke up the any had a headache later in the day in became weak lethargic and confused. His brought him to the ER. In the ER he was found to be confused. His blood pressure
[2022-09-16] MEDS: ALBUMIN HUMAN 25% 25 GM/100 ML 100 ML IVPB ×3 (13:03→23:17)
[2022-09-16 13:16] LABS: Creatine Kinase 64 U/L (55-170)
[2022-09-16] MEDS: hydrALAZINE HCL 20 MG/ML VIAL IV PUSH (15:54)
--- NOTE | 2022-09-16 15:54 | WPDPN ---
Progress Note: A&P Assessment and Plan (1) Hypertensive emergency: Code(s): I16.1 - Hypertensive emergency Status: Acute Assessment and Plan: Admit to ICU, on Nicardipine drip Permissive hypertension, continuous telemetry Continuous pulse ox, supportive care 09/16/2022 interval history: 61 y/o male presented with emergently elevated BP and was started on Nicardipine drip and seen by submarine diver and his blood pressure is trending down, patient clinical symptoms are improving, patient had a cardiac echo and suspect patient may have vegentaion and chef de cuisine is recommending TOMY to further revaluate, patient stats he is feeling much better and denies any CP, or shortness of breath 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): Code(s): I69.322 - Dysarthria following cerebral infarction Status: Acute Assessment and Plan: Appears to be resolving (3) Atrial fibrillation: Code(s): I48.91 - Unspecified atrial fibrillation Status: Acute Assessment and Plan: Bradycardic right now (4) Left-sided weakness: Code(s): R53.1 - Weakness Status: Acute Assessment and Plan: Appreciate neurology consultation (5) AMS (altered mental status): Code(s): R41.82 - Altered mental status, unspecified Status: Acute Assessment and Plan: Appreciate submarine diver consultation (6) Acute kidney injury superimposed on CKD: Code(s): N17.9 - Acute kidney failure, unspecified; N18.9 - Chronic kidney disease, unspecified Status: Acute Assessment and Plan: Renal ultrasound within normal limits Creatinine appears to be worsening Defer further management to submarine diver Plan DVT prophylaxis with SCDs GI prophylaxis not indicated Code status full code Subjective Date/time seen: 09/16/22 15:54 Interval history: No overnight events noted. No chest pain or shortness of breath. No nausea, vomiting or diarrhea. No fevers or chills. 09/16/2022 interval history: 61 y/o male presented with emergently elevated BP and was started on Nicardipine drip and seen by submarine diver and his blood pressure is trending down, patient clinical symptoms are improving, patient had a cardiac echo and suspect patient may have vegentaion and chef de cuisine is recommending TOMY to further revaluate, patient stats he is feeling much better and denies any CP, or shortness of breath. Review of Systems Review of Systems: All systems reviewed & are unremarkable except as noted in HPI and below Exam Narrative: Patient is comfortable, NAD HEENT: eyes are clear and none icteric LUNGS: Normal respiratory ABD: Distended Lower extremities: no edema SKIN: nonjaundiced Neuro: grossly intact. Objective Data Vital Signs Vital Signs: Vital Signs - 24 hr 09/15/22 16:00 09/15/22 16:00 09/15/22 16:00 Temperature 97.7 F Pulse Rate 54 L 54 L 54 L Respiratory Rate 12 12 Blood Pressure 153/64 H Pulse Oximetry 95 95 Oxygen Delivery Room Air 09/15/22 18:00 09/15/22 18:00 09/15/22 20:00 Temperature 98.1 F Pulse Rate 56 L 56 L 55 L Respiratory Rate 13 15 Blood Pressure 145/67 H 152/71 H Pulse Oximetry 96 94 Oxygen Delivery 09/15/22 20:26 09/15/22 20:00 09/15/22 20:00 Temperature Pulse Rate 47 L 57 L 57 L Respiratory Rate 16 Blood Pressure Pulse Oximetry 99 Oxygen Delivery Room Air 09/15/22 22:00 09/15/22 22:00 09/16/22 00:00 Temperature Pulse Rate 52 L 52 L 52 L Respiratory Rate 13 13 Blood Pressure 126/59 L Pulse Oximetry 93 94 Oxygen Delivery Room Air 09/16/22 00:00 09/16/22 00:00 09/16/22 02:00 Temperature 98.3 F Pulse Rate 52 L 52 L 49 L Respiratory Rate 13 Blood Pressure 125/53 L Pulse Oximetry 94 Oxygen Delivery 09/16/22 02:00 09/16/22 04:00 09/16/22 04:00 Temperature 97.8 F 97.4 F L Pulse Rate 49 L 44 L 44 L Respiratory Rat
[2022-09-16] MEDS: amLODIPine BESYLATE 5 MG TABLET 10 MG PO (17:47)
[2022-09-16] MEDS: ONDANSETRON INJ 4 MG/2 ML VIAL IV PUSH (17:48)
[2022-09-16 18:09] LABS: Glucose Point of Care 226 mg/dl (65-105)
[2022-09-16 20:55] LABS: Glucose Point of Care 224 mg/dl (65-105)
[2022-09-16] MEDS: ATORVASTATIN 40 MG TABLET 80 MG PO (21:08)
[2022-09-16] MEDS: ACETAMINOPHEN 325 MG TABLET 650 MG PO (23:16)
[2022-09-17] VITALS (10 sets, daily range): BP systolic 143–164; BP diastolic 52–81; PULSE 54–74; RESP 16–20; TEMP 36.6–37.1; O2SAT 90–96
[2022-09-17] MEDS: ONDANSETRON INJ 4 MG/2 ML VIAL IV PUSH ×2 (00:53→08:28)
[2022-09-17 04:20] LABS: Hematocrit 28.9 % (42.0-52.0); Hemoglobin 9.7 g/dL (14.0-18.0); Mean Corpuscular HGB Conc 33.6 g/dl (32-36); Mean Corpuscular Hemoglobin 30.2 pg (26-34); Mean Platelet Volume 10.7 fl (7.4-10.4); Platelet Count Result 147 k/mm3 (150-375); Red Blood Count 3.21 M/mm3 (4.6-6.20); Red Cell Distribution Width 12.2 % (11.5-14.5); White Blood Count 8.1 K/mm3 (4.5-10.0)
[2022-09-17 04:30] LABS: Alanine Aminotransferase 15 U/L (6-50); Albumin Level 3.3 g/dL (3.5-5.1); Alkaline Phosphatase 69 U/L (38-126); Anion Gap 5 mmol/L (8-16); Aspartate Amino Transferase 17 U/L (17-59); Bilirubin,Total 0.4 mg/dL (0.2-1.3); Blood Urea Nitrogen 30 mg/dL (9-20); Calcium 7.7 mg/dL (8.4-10.2); Carbon Dioxide 26 mmol/L (22-30); Chloride 106 mmol/L (98-107); Estimated CRCL calculation 29 ml/min; Estimated Glomerular Filt Rate 25; Glucose 150 mg/dL (65-110); Magnesium 1.6 mg/dL (1.6-2.3); Potassium 3.8 mmol/L (3.4-5.0); Sodium 137 mmol/L (137-145)
[2022-09-17] MEDS: ALBUMIN HUMAN 25% 25 GM/100 ML 100 ML IVPB (05:06)
[2022-09-17] MEDS: PARoxetine 20 MG TABLET 40 MG PO (08:34)
[2022-09-17] MEDS: LORATADINE 10 MG TABLET PO (08:34)
[2022-09-17] MEDS: glipiZIDE 5 MG TABLET PO (08:34)
[2022-09-17] MEDS: CLOPIDOGREL BISULFATE 75 MG TABLET PO (08:34)
[2022-09-17] MEDS: CHOLECALCIFEROL 400 UNITS TABLET (VIT D) PO (08:35)
[2022-09-17] MEDS: ASPIRIN 325 MG ENTERIC TABLET PO (08:35)
[2022-09-17] MEDS: carvediloL 12.5 MG TABLET PO ×2 (08:35→20:05)
[2022-09-17] MEDS: PANTOPRAZOLE 40 MG TABLET PO (08:35)
--- NOTE | 2022-09-17 08:38 | WPDINTPN ---
Progress Note: A&P Assessment and Plan (1) AMS (altered mental status): Code(s): R41.82 - Altered mental status, unspecified Status: Acute Assessment and Plan: Hypertensive encephalopathy versus TIA versus CVA Patient has significantly improved at this time and is AO x3 and appears to be close to baseline CT head and CTA head and neck were unremarkable for any new change Normal TSH and ammonia UA suggests UTI MRI brain was negative for any new CVA IMPRESSION: 1. No acute intracranial process. 2. Small old infarcts in the right frontal lobe white matter, bilateral jamie and left occipital lobe. 3. 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 Echo done and report below Neurology following (2) Acute kidney injury: Code(s): N17.9 - Acute kidney failure, unspecified Status: Acute Assessment and Plan: Patient presented with elevated creatinine of 1.4 which has been gradually getting worse This could be secondary to uncontrolled blood pressure but patient also received Lasix and contrast for the CTA He was not given IV fluids due to congestive heart failure but was given Lasix Continue blood pressure control Normal CK and renal ultrasound Electrolytes suggest prerenal. Patient was given cautiouss amount of IV fluids over last 24 hours Hold YOGI-inhibitor Monitor urine output electrolytes and creatinine Nephrology following (3) Hypertensive emergency: Code(s): I16.1 - Hypertensive emergency Status: Acute Assessment and Plan: Patient presented with systolic blood pressure in 240s and was started on nicardipine infusion Nicardipine has been weaned off Since patient has been here for more than 24 hours will improved control Continue Coreg and Norvasc Continue p.r.n. hydralazine (4) Atrial fibrillation: Code(s): I48.91 - Unspecified atrial fibrillation Status: Acute Assessment and Plan: Continue Coreg but decrease dose as patient is bradycardic Patient not on any anticoagulation as an outpatient. Patient's states that he was on Coumadin until 1 year ago and was discontinued. She is not sure why it was discontinued but when further inquired she did admit the patient was having issues with falls and was getting out of bed at night. When he was admitted in rehab his bed was placed lowered to the ground to minimize risk of falls. Although patient is a candidate for anticoagulation considering atrial fibrillation, history of CVAs I suspected was discontinued due to high risk of bleeding from falls. Continue Plavix at this time (5) Coronary artery disease: Code(s): I25.10 - Atherosclerotic heart disease of [place] coronary artery without angina pectoris Status: Acute Assessment and Plan: Continue Plavix beta-mary and statin Hold YOGI-inhibitor due to elevated creatinine His troponin level was mildly elevated. EKG shows sinus rhythm (6) Type 2 diabetes mellitus with hyperglycemia: Qualifiers: Diabetes mellitus marine oil terminal superintendent insulin use: without mcfp use Qualified Code(s): E11.65 - Type 2 diabetes mellitus with hyperglycemia Code(s): E11.65 - Type 2 diabetes mellitus with hyperglycemia Status: Acute Assessment and Plan: Sliding scale insulin. Continue glipizide Continue diabetic diet Add Lantus (7) GERD (gastroesophageal reflux disease): Code(s): K21.9 - Gastro-esophageal reflux disease without esophagitis Status: Acute Assessment and Plan: Continue PPI (8) Constipation by delayed colonic transit: Code(s): K59.01 - Slow transit constipation Status: Acute Assessment and Plan: Colace and p.r.n. MiraLax (9) Leukocytosis: Code(s): D72.829 - Elevated white blood cell count, unspecified Status: Acute Assessment and Plan: Patient mostly afebrile but his states problems with swallowing and coughing episode Chest x-ray suggest pulmon
[2022-09-17] MEDS: INSULIN GLARGINE (*BKC) 100 UNITS/ML 15 UNITS SUB-Q (08:40)
[2022-09-17 08:46] LABS: Glucose Point of Care 170 mg/dl (65-105)
--- NOTE | 2022-09-17 10:16 | PM.PNNEP ---
Progress Note: A&P Assessment and Plan (1) Acute kidney injury: Code(s): N17.9 - Acute kidney failure, unspecified Status: Acute Assessment and Plan: multifactorial etiology: HTN urgency overcontrol of blood pressure contrast exposure prerenal factors YOGI-I prior to admission evaluation to date: renal ultrasound unremarkable urine electrolytes non-prerenal UA suggestive of infection CPK normal possible peak/plateau of creatinine today(?) better urine output in the last 24 hours continue to follow trend of repeat labs and UOP (2) Hypertension, uncontrolled: Code(s): I10 - Essential (primary) hypertension Status: Acute Assessment and Plan: better control at this time extremely elevated on admission requiring nicardipine gtt follow trend of hemodynamics on oral medications (3) UTI (urinary tract infection): Code(s): N39.0 - Urinary tract infection, site not specified Status: Acute Assessment and Plan: admission UA highly suggestive however, urine culture negative at this time on antibiotics (4) AMS (altered mental status): Code(s): R41.82 - Altered mental status, unspecified Status: Acute Assessment and Plan: significantly improved since admission suspect hypertensive encephalopathy CT and CTA head unremarkable Brain MRI negative for acute CVA continue supportive therapy (5) Mitral valve disease: Code(s): I05.9 - Rheumatic mitral valve disease, unspecified Status: Acute Assessment and Plan: Echocardiogram results noted: Well-circumscribed, fixed echogenicity on the posterior mitral valve leaflet.? This may be consistent with severe mitral annular calcification, however, given its bright echogenicity and well-circumscribed appearance cannot rule out vegetation.? Clinical correlation advised.? Consider transesophageal echocardiogram if clinically indicated. follow blood cultures Cardiology consulted for TOMY (6) Type 2 diabetes mellitus with hyperglycemia: Qualifiers: Diabetes mellitus fisher trot line insulin use: without fisher trot line use Qualified Code(s): E11.65 - Type 2 diabetes mellitus with hyperglycemia Code(s): E11.65 - Type 2 diabetes mellitus with hyperglycemia Status: Acute Assessment and Plan: follow accu-cheks glycemic control by business management manager/hospitalists Will continue to follow. Subjective Date/time seen: 09/17/22 10:16 Interval history: Follow-up for acute kidney injury/acute renal failure. Chart reviewed -- assuming care from Dr. Cochran; blood pressure appears more stable at this time; unfortunately, did not sleep well last night but denies any other acute symptoms/problems; tolerating oral intake and working with therapy as tolerated. Exam Narrative: General: WD/WN male in NAD Heart: normal S1 and S2; no rub Lungs: clear anteriorly with a few crackles at right base Abdomen: soft, nontender, nondistended, positive bowel sounds Extremities: no cyanosis or clubbing; no edema Skin: noted several small wounds on foot; healing left heel ulcer Objective Data Vital Signs Vital Signs: Vital Signs Temp Pulse Resp BP Pulse Ox O2 Del Method 09/17/22 08:00 98.1 F 70 17 164/67 H 91 09/17/22 08:00 71 09/17/22 08:00 91 Room Air 09/17/22 08:35 74 09/17/22 06:00 97.9 F 62 17 150/53 H 92 09/17/22 06:00 62 09/17/22 04:00 57 L 09/17/22 04:00 Room Air 09/17/22 04:00 98.2 F 64 20 146/52 H 93 09/17/22 02:00 98.4 F 63 20 144/57 H 96 09/17/22 02:00 63 09/17/22 00:00 Room Air 09/17/22 00:00 98.5 F 66 16 161/59 H 95 09/17/22 00:00 66 09/16/22 22:00 98.7 F 71 16 164/67 H 93 09/16/22 22:00 71 09/16/22 21:08 73 09/16/22 20:00 74 09/16/22 20:00 98.8 F 73 18 155/60 H 93 09/16/22 20:00
--- NOTE | 2022-09-17 10:16 | P.PNNP_ITS ---
Progress Note: A&P Assessment and Plan (1) Acute kidney injury: Code(s): N17.9 - Acute kidney failure, unspecified Status: Acute Assessment and Plan: * multifactorial etiology: * HTN urgency * overcontrol of blood pressure * contrast exposure * prerenal factors * YOGI-I prior to admission * evaluation to date: * renal ultrasound unremarkable * urine electrolytes non-prerenal * UA suggestive of infection * CPK normal * possible peak/plateau of creatinine today(?) * better urine output in the last 24 hours * continue to follow trend of repeat labs and UOP (2) Hypertension, uncontrolled: Code(s): I10 - Essential (primary) hypertension Status: Acute Assessment and Plan: * better control at this time * extremely elevated on admission requiring nicardipine gtt * follow trend of hemodynamics on oral medications (3) UTI (urinary tract infection): Code(s): N39.0 - Urinary tract infection, site not specified Status: Acute Assessment and Plan: * admission UA highly suggestive * however, urine culture negative at this time * on antibiotics (4) AMS (altered mental status): Code(s): R41.82 - Altered mental status, unspecified Status: Acute Assessment and Plan: * significantly improved since admission * suspect hypertensive encephalopathy * CT and CTA head unremarkable * Brain MRI negative for acute CVA * continue supportive therapy (5) Mitral valve disease: Code(s): I05.9 - Rheumatic mitral valve disease, unspecified Status: Acute Assessment and Plan: * Echocardiogram results noted: * Well-circumscribed, fixed echogenicity on the posterior mitral valve leaflet.? This may be consistent with severe mitral annular calcification, however, given its bright echogenicity and well-circumscribed appearance cannot rule out vegetation.? Clinical correlation advised.? Consider transesophageal echocardiogram if clinically indicated. * follow blood cultures * Cardiology consulted for TOMY (6) Type 2 diabetes mellitus with hyperglycemia: Qualifiers: Diabetes mellitus penitentiary insulin use: without penitentiary use Qualified Code(s): E11.65 - Type 2 diabetes mellitus with hyperglycemia Code(s): E11.65 - Type 2 diabetes mellitus with hyperglycemia Status: Acute Assessment and Plan: * follow accu-cheks * glycemic control by legal operations manager/hospitalists Will continue to follow. Subjective Date/time seen: 09/17/22 10:16 Interval history: Follow-up for acute kidney injury/acute renal failure. Chart reviewed -- assuming care from Dr. Cochran; blood pressure appears more stable at this time; unfortunately, did not sleep well last night but denies any other acute symptoms/problems; tolerating oral intake and working with therapy as tolerated. Exam Narrative: General: WD/WN male in NAD Heart: normal S1 and S2; no rub Lungs: clear anteriorly with a few crackles at right base Abdomen: soft, nontender, nondistended, positive bowel sounds Extremities: no cyanosis or clubbing; no edema Skin: noted several small wounds on foot; healing left heel ulcer Objective Data Vital Signs Vital Signs: Vital Signs Temp Pulse Resp BP Pulse Ox O2 Del Method 09/17/22 08:00 98.1 F 70 17 164/67 H 91 09/17/22 08:0
[2022-09-17 12:06] LABS: Glucose Point of Care 202 mg/dl (65-105)
[2022-09-17] MEDS: INSULIN ASPART (*BKC) 100 UNITS/ML SUB-Q (12:07)
[2022-09-17] MEDS: METOCLOPRAMIDE HCL 5 MG TABLET PO ×3 (12:08→20:06)
--- NOTE | 2022-09-17 13:10 | PM.CNCAR ---
Assessment and Plan Assessment and plan (1) Abnormal echocardiogram: Code(s): R93.1 - Abnormal findings on diagnostic imaging of heart and coronary circulation Status: Acute Assessment and Plan: Given patient's history of multiple strokes in different locations and well-circumscribed echodensity in which vegetation cannot be excluded transesophageal echocardiogram has been requested and is clinically appropriate. Although he has negative blood cultures is no longer febrile he has been on antibiotics for UTI. I would like to compared to a recent echocardiogram to determine chronicity of this finding, however, we discussed the risk versus benefit of transesophageal echocardiogram including hypotension, aspiration and respiratory compromise particular of emesis in the dangers this would pose to him likely requiring intubation. Given previous concerns with regards to swallowing integrity patient's and I both agree it would be best if transesophageal echocardiogram was performed with the assistance of Anesthesiology for improved safety. We discussed the risks associated endocarditis, anticipated prolonged IV antibiotic therapy. All questions were answered to their satisfaction. Further recommendation to follow after review of transesophageal echocardiogram. He remains on intravenous ceftriaxone and vancomycin for treatment. Continue follow blood cultures, negative to date. Given risk versus benefits patient is a reasonable candidate although with elevated risk due to aspiration concerns and complicated medical history. After discussion with present cons, risks and benefits patient and his verbalized understanding and agreed to proceed with transesophageal echocardiogram. Given the 18 of September holiday this will need to be planned after the holiday Anesthesiology schedule permitting. I have spent 80 minutes in the care of this patient including before, during and after my interview with the patient and discussions with his , additional care providers, nursing staff, chart review, medical decision-making, and documentation. (2) Paroxysmal atrial fibrillation: Code(s): I48.0 - Paroxysmal atrial fibrillation Status: Acute Assessment and Plan: Reported history of paroxysmal atrial fibrillation maintaining sinus rhythm throughout this hospitalization thus far. He is not on systemic anticoagulation. He does remain on antiplatelet therapy with clopidogrel 75 mg daily which is inadequate for stroke risk reduction due to atrial fibrillation. I did review prior records and documentation in this regard. Patient is high risk for embolic stroke yet he is at high risk for bleeding complications given history of frequent falls and now with declining H&H. Continue carvedilol 12.5 mg twice daily. Continue telemetry. CHADS2 Vasc score 6 placing him at high risk for embolic stroke. (3) History of multiple cerebrovascular accidents (CVAs): Code(s): Z86.73 - Personal history of transient ischemic attack (TIA), and cerebral infarction without residual deficits Status: Acute Assessment and Plan: As above, mechanism is not precisely known, however, clinically suspicious due to history of atrial fibrillation. However, if vegetation identified TOYM cannot exclude more recent acute cerebrovascular event related to septic emboli, however, patient is not appearing septic and no acute neurologic event this hospitalization on extensive workup including MRI of the brain, CT, CT angiogram. Continue DVT prophylaxis. (4) At risk for aspiration: Code(s): Z91.89 - Other specified personal risk factors, not elsewhere classified Status: Acute Assessment and Plan: As above, patient at elevated risk for aspiration. While he has intact swallowing mechanism and is allowed to eat with recommendations Anesthesiology would be beneficial with sedation for transesophageal echocardiogram to minimize complications in this
[2022-09-17 17:51] LABS: Glucose Point of Care 159 mg/dl (65-105)
[2022-09-17] MEDS: amLODIPine BESYLATE 5 MG TABLET 10 MG PO (17:53)
--- NOTE | 2022-09-17 18:23 | WPDPN ---
Progress Note: A&P Assessment and Plan (1) Hypertensive emergency: Code(s): I16.1 - Hypertensive emergency Status: Acute Assessment and Plan: Admit to ICU, on Nicardipine drip Permissive hypertension, continuous telemetry Continuous pulse ox, supportive care 09/17/2022 interval history: 61 y/o male presented with emergently elevated BP and was started on Nicardipine drip and seen by assembly supervisor and his blood pressure is trending down, patient clinical symptoms are improving, patient had a cardiac echo and suspect patient may have vegetation and manager global is recommending TOMY to further revaluate, which is scheduled for Saturday, patient also has history of A. Fib, rate is controlled and sometime jayjay, patient has CHADS2 Vasc score 6 and he is not anticoagulated, will benefit with anticaogulation to prevent embolic stroke however patient has anemia and frequent falls, patient stats he is feeling much better and denies any CP, or shortness of breath. 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): Code(s): I69.322 - Dysarthria following cerebral infarction Status: Acute Assessment and Plan: Appears to be resolving (3) Atrial fibrillation: Code(s): I48.91 - Unspecified atrial fibrillation Status: Acute Assessment and Plan: Bradycardic right now (4) Left-sided weakness: Code(s): R53.1 - Weakness Status: Acute Assessment and Plan: Appreciate neurology consultation (5) AMS (altered mental status): Code(s): R41.82 - Altered mental status, unspecified Status: Acute Assessment and Plan: Appreciate assembly supervisor consultation (6) Acute kidney injury superimposed on CKD: Code(s): N17.9 - Acute kidney failure, unspecified; N18.9 - Chronic kidney disease, unspecified Status: Acute Assessment and Plan: Renal ultrasound within normal limits Creatinine appears to be worsening Defer further management to assembly supervisor Plan DVT prophylaxis with SCDs GI prophylaxis not indicated Code status full code Subjective Date/time seen: 09/17/22 18:23 Interval history: No overnight events noted. No chest pain or shortness of breath. No nausea, vomiting or diarrhea. No fevers or chills. 09/17/2022 interval history: 61 y/o male presented with emergently elevated BP and was started on Nicardipine drip and seen by assembly supervisor and his blood pressure is trending down, patient clinical symptoms are improving, patient had a cardiac echo and suspect patient may have vegetation and manager global is recommending TOMY to further revaluate, which is scheduled for Saturday, patient also has history of A. Fib, rate is controlled and sometime jayjay, patient has CHADS2 Vasc score 6 and he is not anticoagulated, will benefit with anticaogulation to prevent embolic stroke however patient has anemia and frequent falls, patient stats he is feeling much better and denies any CP, or shortness of breath. Review of Systems Review of Systems: 12 point review of systems was assessed and was negative except as noted in the HPI All systems reviewed & are unremarkable except as noted in HPI and below Exam Narrative: Patient is comfortable, NAD HEENT: eyes are clear and none icteric LUNGS: Normal respiratory ABD: Distended Lower extremities: no edema SKIN: nonjaundiced Neuro: grossly intact. Objective Data Vital Signs Vital Signs: Vital Signs - 24 hr 09/16/22 18:31 09/16/22 20:00 09/16/22 20:00 Temperature 98.5 F 98.8 F Pulse Rate 70 73 Respiratory Rate 15 18 Blood Pressure 154/56 H 155/60 H Pulse Oximetry 98 93 Oxygen Delivery Room Air 09/16/22 20:00 09/16/22 21:08 09/16/22 22:00 Temperature Pulse Rate 74 73 71 Respiratory Rate Blood Pressure Pulse Oximetry Oxygen Delivery 09/16/22 22:00 09/17/22 00:00 09/17/22 00:00 Temperature 98.7 F 98
[2022-09-17] MEDS: MELATONIN 5 MG TABLET PO (20:05)
[2022-09-17] MEDS: ATORVASTATIN 40 MG TABLET 80 MG PO (20:05)
[2022-09-17 20:11] LABS: Glucose Point of Care 181 mg/dl (65-105)
[2022-09-17] MEDS: VANCOMYCIN 1,250 MG/NS 250 ML 1,250 MG/250 ML BAG 166.67 MG IVPB (22:31)
[2022-09-18] VITALS (9 sets, daily range): BP systolic 141–188; BP diastolic 63–76; PULSE 56–72; RESP 14–15; TEMP 36.5–37.1; O2SAT 92–100
[2022-09-18 04:43] LABS: Hematocrit 31.3 % (42.0-52.0); Hemoglobin 10.4 g/dL (14.0-18.0); Mean Corpuscular HGB Conc 33.2 g/dl (32-36); Mean Corpuscular Hemoglobin 29.7 pg (26-34); Mean Corpuscular Volume 89.4 fl (80-100); Mean Platelet Volume 11.1 fl (7.4-10.4); Platelet Count Result 182 k/mm3 (150-375); Red Cell Distribution Width 12.2 % (11.5-14.5); White Blood Count 9.4 K/mm3 (4.5-10.0)
[2022-09-18 04:57] LABS: Alanine Aminotransferase 14 U/L (6-50); Albumin Level 3.3 g/dL (3.5-5.1); Alkaline Phosphatase 67 U/L (38-126); Anion Gap 4 mmol/L (8-16); Aspartate Amino Transferase 20 U/L (17-59); Bilirubin,Total 0.4 mg/dL (0.2-1.3); Blood Urea Nitrogen 26 mg/dL (9-20); Carbon Dioxide 26 mmol/L (22-30); Chloride 107 mmol/L (98-107); Estimated CRCL calculation 34 ml/min; Estimated Glomerular Filt Rate 31; Glucose 117 mg/dL (65-110); Magnesium 1.8 mg/dL (1.6-2.3); Potassium 3.8 mmol/L (3.4-5.0); Sodium 137 mmol/L (137-145)
[2022-09-18] MEDS: glipiZIDE 5 MG TABLET PO (07:13)
[2022-09-18] MEDS: METOCLOPRAMIDE HCL 5 MG TABLET PO ×4 (07:13→20:10)
[2022-09-18] MEDS: INSULIN GLARGINE (*BKC) 100 UNITS/ML 15 UNITS SUB-Q (08:46)
[2022-09-18] MEDS: PARoxetine 20 MG TABLET 40 MG PO (08:47)
[2022-09-18] MEDS: ASPIRIN 325 MG ENTERIC TABLET PO (08:47)
[2022-09-18] MEDS: PANTOPRAZOLE 40 MG TABLET PO (08:47)
[2022-09-18] MEDS: CLOPIDOGREL BISULFATE 75 MG TABLET PO (08:47)
[2022-09-18 08:48] LABS: Glucose Point of Care 146 mg/dl (65-105)
[2022-09-18] MEDS: carvediloL 12.5 MG TABLET PO ×2 (08:48→20:10)
[2022-09-18] MEDS: CHOLECALCIFEROL 400 UNITS TABLET (VIT D) PO (08:48)
--- NOTE | 2022-09-18 09:18 | PM.PNCARD ---
Progress Note: A&P Assessment and Plan (1) Abnormal echocardiogram: Code(s): R93.1 - Abnormal findings on diagnostic imaging of heart and coronary circulation Status: Acute Assessment and Plan: Given patient's history of multiple strokes in different locations and well-circumscribed echodensity in which vegetation cannot be excluded transesophageal echocardiogram has been requested and is clinically appropriate. Will keep NPO after midnight for consideration of TOMY tomorrow. Anesthesia will likely be needed (2) Paroxysmal atrial fibrillation: Code(s): I48.0 - Paroxysmal atrial fibrillation Status: Acute Assessment and Plan: Reported history of paroxysmal atrial fibrillation maintaining sinus rhythm throughout this hospitalization thus far. He is not on systemic anticoagulation. He does remain on antiplatelet therapy with clopidogrel 75 mg daily which is inadequate for stroke risk reduction due to atrial fibrillation. I did review prior records and documentation in this regard. Patient is high risk for embolic stroke yet he is at high risk for bleeding complications given history of frequent falls and now with declining H&H. Continue carvedilol 12.5 mg twice daily. Continue telemetry. CHADS2 Vasc score 6 placing him at high risk for embolic stroke. (3) History of multiple cerebrovascular accidents (CVAs): Code(s): Z86.73 - Personal history of transient ischemic attack (TIA), and cerebral infarction without residual deficits Status: Acute Assessment and Plan: TOMY tomorrow (4) At risk for aspiration: Code(s): Z91.89 - Other specified personal risk factors, not elsewhere classified Status: Acute Assessment and Plan: As above, patient at elevated risk for aspiration. While he has intact swallowing mechanism and is allowed to eat with recommendations Anesthesiology would be beneficial with sedation for transesophageal echocardiogram to minimize complications in this regard. Patient's also verbalizes understanding and is admits she feels he would be best served with Anesthesiology assistance. (5) Elevated troponin: Code(s): R77.8 - Other specified abnormalities of plasma proteins Status: Acute Assessment and Plan: Most likely type 2 infarction not acute coronary syndrome with mild elevation flat curve secondary to hypertensive urgency, underlying CAD, acute on chronic kidney failure, anemia. Patient is not endorsing ischemic symptoms at this time. Continue aggressive risk modification medical management. Continue clinical observation. No plans for an ischemic evaluation at this time. (6) Coronary artery disease: Qualifiers: Coronary Disease-Associated Artery/Lesion type: [place] artery [place] vs. transplanted heart: [place] heart Associated angina: without angina Qualified Code(s): I25.10 - Atherosclerotic heart disease of [place] coronary artery without angina pectoris Code(s): I25.10 - Atherosclerotic heart disease of [place] coronary artery without angina pectoris Status: Acute Assessment and Plan: Stable, no acute issues. Mild flat troponin elevation presentation not secondary to acute coronary syndrome and/or plaque rupture but secondary to hypertensive urgency presentation as well as acute on chronic kidney injury. Continue clopidogrel 75 mg daily, carvedilol 12.5 mg twice daily, atorvastatin 80 mg at bedtime. The addition of SGL T2 inhibitor therapy would be advised as tolerated such as Jardiance 10 mg daily. (7) UTI (urinary tract infection): Code(s): N39.0 - Urinary tract infection, site not specified Status: Acute Assessment and Plan: Continue IV ceftriaxone. Management per primary service. (8) Hypertension, uncontrolled: Code(s): I10 - Essential (primary) hypertension Status: Acute Assessment and Plan: Hypertensive urgency presentation, BP remains elevated but be
--- NOTE | 2022-09-18 10:48 | PM.PNNEP ---
Progress Note: A&P Assessment and Plan (1) Acute kidney injury: Code(s): N17.9 - Acute kidney failure, unspecified Status: Acute Assessment and Plan: multifactorial etiology: HTN urgency potential overcontrol of blood pressure contrast exposure prerenal factors YOGI-I prior to admission evaluation to date: renal ultrasound unremarkable urine electrolytes non-prerenal UA suggestive of infection CPK normal slow improvement in creatinine good urine output in the last 24 - 48 hours continue to follow trend of repeat labs and UOP (2) Hypertension, uncontrolled: Code(s): I10 - Essential (primary) hypertension Status: Acute Assessment and Plan: better control at this time extremely elevated on admission requiring nicardipine gtt follow trend of hemodynamics on oral medications if remains elevated, agree with Cardiology with regard to possible addition of hydralazine +/- nitrates; alternatively, consider changing amlodipine to nifedipine XL (3) UTI (urinary tract infection): Code(s): N39.0 - Urinary tract infection, site not specified Status: Acute Assessment and Plan: admission UA highly suggestive however, urine culture negative at this time on antibiotics (4) AMS (altered mental status): Code(s): R41.82 - Altered mental status, unspecified Status: Acute Assessment and Plan: significantly improved since admission suspect hypertensive encephalopathy CT and CTA head unremarkable Brain MRI negative for acute CVA continue supportive therapy (5) Mitral valve disease: Code(s): I05.9 - Rheumatic mitral valve disease, unspecified Status: Acute Assessment and Plan: echocardiogram results noted: Well-circumscribed, fixed echogenicity on the posterior mitral valve leaflet.? This may be consistent with severe mitral annular calcification, however, given its bright echogenicity and well-circumscribed appearance cannot rule out vegetation.? Clinical correlation advised.? Consider transesophageal echocardiogram if clinically indicated. follow blood cultures Cardiology following for TOMY (6) Type 2 diabetes mellitus with hyperglycemia: Qualifiers: Diabetes mellitus custodial insulin use: without custodial use Qualified Code(s): E11.65 - Type 2 diabetes mellitus with hyperglycemia Code(s): E11.65 - Type 2 diabetes mellitus with hyperglycemia Status: Acute Assessment and Plan: follow accu-cheks glycemic control by hospitalists Will continue to follow. Subjective Date/time seen: 09/18/22 10:48 Interval history: Follow-up for acute kidney injury/acute renal failure. Overall, seems to be doing better in general; continues to make good urine output with slow improvement in renal function/creatinine as noted by AM labs; BP still elevated but better in comparison to admission; no apparent distress noted. Exam Narrative: General: WD/WN male in NAD Heart: normal S1 and S2; no rub Lungs: clear anteriorly with a few crackles at right base Abdomen: soft, nontender, nondistended, positive bowel sounds Extremities: no cyanosis or clubbing; no edema Skin: several small wounds on foot; healing left heel ulcer present Objective Data Vital Signs Vital Signs: Vital Signs Temp Pulse Resp BP Pulse Ox O2 Del Method 09/18/22 08:00 Room Air 09/18/22 08:48 67 09/18/22 08:00 59 L 09/18/22 08:00 98.1 F 60 14 179/65 H 100 09/18/22 00:00 97.7 F 57 L 14 141/63 H 92 09/18/22 04:00 56 L 09/18/22 00:00 57 L 09/17/22 20:00 65 09/17/22 20:00 90 Room Air 09/17/22 20:05 66 09/17/22 16:00 98.7 F 54 L 17 143/81 H 95 09/17/22 16:00 54 L 09/17/22 12:00 67 Intake/Output Intake/Output: Intake & Output 09/15/22 09/16/22 09/17/22 09/18/22 23:59 23:59 23:59 23:59
--- NOTE | 2022-09-18 10:48 | P.PNNP_ITS ---
Progress Note: A&P Assessment and Plan (1) Acute kidney injury: Code(s): N17.9 - Acute kidney failure, unspecified Status: Acute Assessment and Plan: * multifactorial etiology: * HTN urgency * potential overcontrol of blood pressure * contrast exposure * prerenal factors * YOGI-I prior to admission * evaluation to date: * renal ultrasound unremarkable * urine electrolytes non-prerenal * UA suggestive of infection * CPK normal * slow improvement in creatinine * good urine output in the last 24 - 48 hours * continue to follow trend of repeat labs and UOP (2) Hypertension, uncontrolled: Code(s): I10 - Essential (primary) hypertension Status: Acute Assessment and Plan: * better control at this time * extremely elevated on admission requiring nicardipine gtt * follow trend of hemodynamics on oral medications * if remains elevated, agree with Cardiology with regard to possible addition of hydralazine +/- nitrates; alternatively, consider changing amlodipine to nifedipine XL (3) UTI (urinary tract infection): Code(s): N39.0 - Urinary tract infection, site not specified Status: Acute Assessment and Plan: * admission UA highly suggestive * however, urine culture negative at this time * on antibiotics (4) AMS (altered mental status): Code(s): R41.82 - Altered mental status, unspecified Status: Acute Assessment and Plan: * significantly improved since admission * suspect hypertensive encephalopathy * CT and CTA head unremarkable * Brain MRI negative for acute CVA * continue supportive therapy (5) Mitral valve disease: Code(s): I05.9 - Rheumatic mitral valve disease, unspecified Status: Acute Assessment and Plan: * echocardiogram results noted: * Well-circumscribed, fixed echogenicity on the posterior mitral valve leaflet.? This may be consistent with severe mitral annular calcification, however, given its bright echogenicity and well-circumscribed appearance cannot rule out vegetation.? Clinical correlation advised.? Consider transesophageal echocardiogram if clinically indicated. * follow blood cultures * Cardiology following for TOMY (6) Type 2 diabetes mellitus with hyperglycemia: Qualifiers: Diabetes mellitus buttermaker continuous churn insulin use: without buttermaker continuous churn use Qualified Code(s): E11.65 - Type 2 diabetes mellitus with hyperglycemia Code(s): E11.65 - Type 2 diabetes mellitus with hyperglycemia Status: Acute Assessment and Plan: * follow accu-cheks * glycemic control by hospitalists Will continue to follow. Subjective Date/time seen: 09/18/22 10:48 Interval history: Follow-up for acute kidney injury/acute renal failure. Overall, seems to be doing better in general; continues to make good urine output with slow improvement in renal function/creatinine as noted by AM labs; BP still elevated but better in comparison to admission; no apparent distress noted. Exam Narrative: General: WD/WN male in NAD Heart: normal S1 and S2; no rub Lungs: clear anteriorly with a few crackles at right base Abdomen: soft, nontender, nondistended, positive bowel sounds Extremities: no cyanosis or clubbing; no edema Skin: several small wounds on foot; healing left heel ulcer present Objective Data Vital Signs Vital Signs: Vital
[2022-09-18] MEDS: INSULIN ASPART (*BKC) 100 UNITS/ML SUB-Q (11:44)
[2022-09-18 11:50] LABS: Glucose Point of Care 250 mg/dl (65-105)
--- NOTE | 2022-09-18 13:33 | PCCARD ---
TALKED TO VINCE IN ICU AT 7:05 AM 09/16/2022. TOLD HER THE PATIENT NEEDS A CARDIAC CONSULT AND A TOMY HAS TO BE ORDERED BY THE COMMUNITY EDUCATION SPECIALIST. I'M CANCELLING THIS TOMY ORDER. A NEW ORDER CAN BE PUT IN IF TEST IS NEEDS, TO BE DETERMINED BY THE COMMUNITY EDUCATION SPECIALIST.
--- NOTE | 2022-09-18 14:34 | WPDPN ---
Progress Note: A&P Assessment and Plan (1) Hypertensive emergency: Code(s): I16.1 - Hypertensive emergency Status: Acute Assessment and Plan: Admit to ICU, on Nicardipine drip Permissive hypertension, continuous telemetry Continuous pulse ox, supportive care 09/18/2022 interval history: 61 y/o male presented with emergently elevated BP and was started on Nicardipine drip and seen by automotive mechanic and his blood pressure is trending down, patient clinical symptoms are improving, patient had a cardiac echo and suspect patient may have vegetation and learning support teacher is recommending TOMY to further revaluate, which is scheduled for Saturday, patient also has history of A. Fib, rate is controlled and sometime jayjay, patient has CHADS2 Vasc score 6 and he is not anticoagulated, will benefit with anticaogulation to prevent embolic stroke however patient has anemia and frequent falls, today patient's is present in the room, patient has history of night terror and falling ou of the bed, discuss with nusing, will monitor, patient stats he is feeling much better and denies any CP, or shortness of breath. 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): Code(s): I69.322 - Dysarthria following cerebral infarction Status: Acute Assessment and Plan: Appears to be resolving (3) Atrial fibrillation: Code(s): I48.91 - Unspecified atrial fibrillation Status: Acute Assessment and Plan: Bradycardic right now (4) Left-sided weakness: Code(s): R53.1 - Weakness Status: Acute Assessment and Plan: Appreciate neurology consultation (5) AMS (altered mental status): Code(s): R41.82 - Altered mental status, unspecified Status: Acute Assessment and Plan: Appreciate automotive mechanic consultation (6) Acute kidney injury superimposed on CKD: Code(s): N17.9 - Acute kidney failure, unspecified; N18.9 - Chronic kidney disease, unspecified Status: Acute Assessment and Plan: Renal ultrasound within normal limits Creatinine appears to be worsening Defer further management to automotive mechanic Plan DVT prophylaxis with SCDs GI prophylaxis not indicated Code status full code Subjective Date/time seen: 09/18/22 14:34 Interval history: Admit to ICU, on Nicardipine drip Permissive hypertension, continuous telemetry Continuous pulse ox, supportive care 09/18/2022 interval history: 61 y/o male presented with emergently elevated BP and was started on Nicardipine drip and seen by automotive mechanic and his blood pressure is trending down, patient clinical symptoms are improving, patient had a cardiac echo and suspect patient may have vegetation and learning support teacher is recommending TOMY to further revaluate, which is scheduled for Saturday, patient also has history of A. Fib, rate is controlled and sometime jayjay, patient has CHADS2 Vasc score 6 and he is not anticoagulated, will benefit with anticaogulation to prevent embolic stroke however patient has anemia and frequent falls, today patient's is present in the room, patient has history of night terror and falling ou of the bed, discuss with nusing, will monitor, patient stats he is feeling much better and denies any CP, or shortness of breath. Review of Systems Review of Systems: 12 point review of systems was assessed and was negative except as noted in the HPI Exam Narrative: Patient is comfortable, NAD HEENT: eyes are clear and none icteric LUNGS: Normal respiratory ABD: Distended Lower extremities: no edema SKIN: nonjaundiced Neuro: grossly intact. Objective Data Vital Signs Vital Signs: Vital Signs - 24 hr 09/17/22 16:00 09/17/22 16:00 09/17/22 20:05 Temperature 98.7 F Pulse Rate 54 L 54 L 66 Respiratory Rate 17 Blood Pressure 143/81 H Pulse Oximetry 95 Oxygen Delivery 09/17/22 20:00 09/17/22 20:00 09/18/22 00:00
[2022-09-18] MEDS: amLODIPine BESYLATE 5 MG TABLET 10 MG PO (16:37)
[2022-09-18 16:41] LABS: Glucose Point of Care 131 mg/dl (65-105)
[2022-09-18] MEDS: hydrALAZINE HCL 20 MG/ML VIAL IV PUSH (20:09)
[2022-09-18] MEDS: ATORVASTATIN 40 MG TABLET 80 MG PO (20:10)
[2022-09-18] MEDS: MELATONIN 3 MG TABLET PO (20:15)
[2022-09-18 20:18] LABS: Glucose Point of Care 195 mg/dl (65-105)
[2022-09-19] VITALS (14 sets, daily range): BP systolic 140–176; BP diastolic 57–72; PULSE 57–90; RESP 15–18; TEMP 37.2–37.4; O2SAT 65–100
[2022-09-19] MEDS: glipiZIDE 5 MG TABLET PO (05:26)
[2022-09-19 07:38] LABS: Glucose Point of Care 145 mg/dl (65-105)
[2022-09-19 08:58] LABS: Hematocrit 37.7 % (42.0-52.0); Hemoglobin 12.6 g/dL (14.0-18.0); Mean Corpuscular HGB Conc 33.4 g/dl (32-36); Mean Corpuscular Hemoglobin 29.7 pg (26-34); Mean Corpuscular Volume 88.9 fl (80-100); Mean Platelet Volume 10.8 fl (7.4-10.4); Platelet Count Result 213 k/mm3 (150-375); Red Blood Count 4.24 M/mm3 (4.6-6.20); Red Cell Distribution Width 12.3 % (11.5-14.5); White Blood Count 8.9 K/mm3 (4.5-10.0)
--- NOTE | 2022-09-19 08:58 | PM.PNCARD ---
Progress Note: A&P Assessment and Plan (1) Abnormal echocardiogram: Code(s): R93.1 - Abnormal findings on diagnostic imaging of heart and coronary circulation Status: Acute Assessment and Plan: Given patient's history of multiple strokes in different locations and well-circumscribed echodensity in which vegetation cannot be excluded transesophageal echocardiogram has been requested and is clinically appropriate. Patient is nPO after midnight for TOMY this morning. Discussed with Anesthesiology. We can to proceed with TOMY now to assess mitral valve echodensity of possible endocarditis. Recommendations to follow after procedure. Continue antibiotics, supportive management. Patient has been afebrile. Discussed with Graphics and Anesthesiology who are able to proceed at this time. (2) Paroxysmal atrial fibrillation: Code(s): I48.0 - Paroxysmal atrial fibrillation Status: Acute Assessment and Plan: Reported history of paroxysmal atrial fibrillation maintaining sinus rhythm throughout this hospitalization thus far. He is not on systemic anticoagulation. He does remain on antiplatelet therapy with clopidogrel 75 mg daily which is inadequate for stroke risk reduction due to atrial fibrillation. I did review prior records and documentation in this regard. Patient is high risk for embolic stroke yet he is at high risk for bleeding complications given history of frequent falls and now with declining H&H. Continue carvedilol 12.5 mg twice daily. Continue telemetry. CHADS2 Vasc score 6 placing him at high risk for embolic stroke. Stable, no new issues at this time. Relative contraindication to systemic anticoagulation as discussed above. (3) History of multiple cerebrovascular accidents (CVAs): Code(s): Z86.73 - Personal history of transient ischemic attack (TIA), and cerebral infarction without residual deficits Status: Acute Assessment and Plan: TOMY tomorrow to exclude mitral valve endocarditis although most likely explanation due to atrial fibrillation without anticoagulation although this remains on certain given timing and diagnosis of AFib as he has evidence of acute infarct in the jamie on MRI 03/05/2019 and old infarcts in the jamie and posterior right frontal lobe white matter at that time which per available documentation that I have predates his diagnosis of AFib. Risks, benefits, alternatives discussed. Patient agreed to proceed with study as planned. (4) At risk for aspiration: Code(s): Z91.89 - Other specified personal risk factors, not elsewhere classified Status: Acute Assessment and Plan: As above, patient at elevated risk for aspiration. While he has intact swallowing mechanism and is allowed to eat with recommendations Anesthesiology would be beneficial with sedation for transesophageal echocardiogram to minimize complications in this regard. Anesthesiology assistance with OTMY. (5) Elevated troponin: Code(s): R77.8 - Other specified abnormalities of plasma proteins Status: Acute Assessment and Plan: Most likely type 2 infarction not acute coronary syndrome with mild elevation flat curve secondary to hypertensive urgency, underlying CAD, acute on chronic kidney failure, anemia. Patient is not endorsing ischemic symptoms at this time. Continue aggressive risk modification medical management. Continue clinical observation. No plans for an ischemic evaluation at this time. (6) Coronary artery disease: Qualifiers: Coronary Disease-Associated Artery/Lesion type: [place] artery [place] vs. transplanted heart: [place] heart Associated angina: without angina Qualified Code(s): I25.10 - Atherosclerotic heart disease of [place] coronary artery without angina pectoris Code(s): I25.10 - Atherosclerotic heart disease of [place] coronary artery without angina pectoris Status: Acute Assessment and Plan: Stable, no acute issu
[2022-09-19 09:07] LABS: Alanine Aminotransferase 14 U/L (6-50); Albumin Level 3.6 g/dL (3.5-5.1); Alkaline Phosphatase 84 U/L (38-126); Anion Gap 7 mmol/L (8-16); Aspartate Amino Transferase 18 U/L (17-59); Bilirubin,Total 0.6 mg/dL (0.2-1.3); Blood Urea Nitrogen 21 mg/dL (9-20); Calcium 8.5 mg/dL (8.4-10.2); Carbon Dioxide 27 mmol/L (22-30); Chloride 106 mmol/L (98-107); Estimated CRCL calculation 39 ml/min; Estimated Glomerular Filt Rate 36; Glucose 126 mg/dL (65-110); Magnesium 1.8 mg/dL (1.6-2.3); Potassium 3.9 mmol/L (3.4-5.0); Sodium 140 mmol/L (137-145)
[2022-09-19 09:13] LABS: Vancomycin Trough 13.8 ug/mL (10.0-20.0)
[2022-09-19] MEDS: PANTOPRAZOLE 40 MG TABLET PO (09:37)
[2022-09-19] MEDS: CLOPIDOGREL BISULFATE 75 MG TABLET PO (09:37)
[2022-09-19] MEDS: CHOLECALCIFEROL 400 UNITS TABLET (VIT D) PO (09:37)
[2022-09-19] MEDS: PARoxetine 20 MG TABLET 40 MG PO (09:37)
[2022-09-19] MEDS: carvediloL 12.5 MG TABLET PO ×2 (09:37→20:11)
[2022-09-19] MEDS: ASPIRIN 325 MG ENTERIC TABLET PO (09:38)
[2022-09-19] MEDS: VANCOMYCIN 1,000 MG/NS 250 ML 1,000 MG/250 ML BAG 250 MG IVPB (09:50)
[2022-09-19 11:37] LABS: Glucose Point of Care 122 mg/dl (65-105)
--- NOTE | 2022-09-19 12:15 | ECG_ITS ---
Measurements Intervals [place] Rate: 67 P: 55 [place]: 189 QRS: -13 QRSD: 152 T: 6 QT: 473 QTc: 501 Interpretive Statements SINUS RHYTHM MISSING LEAD V1 ATRIAL PREMATURE COMPLEXES RIGHT BUNDLE BRANCH BLOCK BASELINE ARTIFACT- I, II, III, AVL, AVF ABNORMAL ECG COMPARED TO ECG 09/14/2022 20:08:58 NO SIGNIFICANT CHANGES Electronically Signed On 09-20-2022 11:12:15 CDT by Silas Souza D.O.
--- NOTE | 2022-09-19 12:29 | WPDANESEPPF ---
Anes - Initial Pre Proc Eval Procedure: Operation Date: 09/19/22 13:00 Proposed Procedures p Trans Esophageal Echo - Kade Peralta MD s Possible Electrical Cardioversion - Kade Peralta MD Date/Time: 09/19/22 12:29 Surgeon: Taina Goss MD Pre Op Diagnosis: cva w l sided deficits, htn, elev trop Patient Data Age: 61 Gender: M Height: 1.68 m Weight: 89.5 kg Last Vital Signs Temp 98.9 F 09/19/22 08:00 Pulse 64 09/19/22 12:00 Resp 16 09/19/22 08:00 BP 167/64 H 09/19/22 08:00 Pulse Ox 94 09/19/22 08:46 O2 Del Method Room Air 09/19/22 08:46 O2 Flow Rate 0 09/19/22 08:00 Allergies Allergy/AdvReac Type Severity Reaction Status Date / Time No Known Allergies Allergy Verified 10/17/19 11:10 Home Medications Medication Instructions Recorded Confirmed Type clopidogrel 75 mg tablet 75 mg PO DAILY 03/04/19 09/14/22 History omeprazole 20 mg capsule,delayed 20 mg PO DAILY 03/04/19 09/14/22 History release paroxetine HCl 20 mg tablet 40 mg PO DAILY 03/04/19 09/14/22 History ramipril 10 mg capsule 10 mg PO DAILY 03/04/19 09/14/22 History atorvastatin 80 mg tablet 80 mg PO HS 30 days #30 tabs 07/10/21 09/14/22 Rx carvedilol 12.5 mg tablet (Coreg) 25 mg PO BIDWM 30 days #120 tabs 07/10/21 09/14/22 Rx gabapentin 100 mg capsule 100 mg PO TID #90 caps 07/10/21 09/14/22 Rx cetirizine 10 mg tablet 10 mg PO DAILY PRN Congestion 09/14/22 09/14/22 History cholecalciferol (vitamin D3) 10 10 mcg PO DAILY 09/14/22 09/14/22 History mcg (400 unit) capsule docusate sodium 100 mg capsule 100 mg PO Q12HR PRN Constipation 09/14/22 09/14/22 History glipizide 5 mg tablet 5 mg PO BID 09/14/22 09/14/22 History Laboratory Tests 09/18/22 09/18/22 09/19/22 16:36 20:08 07:34 WBC RBC Hgb Hct MCV MCH MCHC RDW Plt Count MPV Sodium Potassium Chloride Carbon Dioxide Anion Gap BUN Creatinine Estim Creat Clear Calc Estimated GFR Glucose POC Capillary Glucose 131 H mg/dl 195 H mg/dl 145 H mg/dl (65-105) (65-105) (65-105) Calcium Magnesium Total Bilirubin AST ALT Alkaline Phosphatase Total Protein Albumin Vancomycin Trough 09/19/22 09/19/22 08:52 11:35 WBC 8.9 K/mm3 (4.5-10.0) RBC 4.24 L M/mm3 (4.6-6.20) Hgb 12.6 L g/dL (14.0-18.0) Hct 37.7 L % (42.0-52.0) MCV 88.9 fl (80-100) MCH 29.7 pg (26-34) MCHC 33.4 g/dl (32-36) RDW 12.3 % (11.5-14.5) Plt Count 213 k/mm3 (150-375) MPV 10.8 H fl (7.4-10.4) Sodium 140 mmol/L (137-145) Potassium 3.9 mmol/L (3.4-5.0) Chloride 106 mmol/L (98-107) Carbon Dioxide 27 mmol/L (22-30) Anion Gap 7 L mmol/L (8-16) BUN 21 H mg/dL (9-20) Creatinine 1.90 H mg/dL (0.7-1.3) Estim Creat Clear Calc 39 ml/min Estimated GFR 36 L (59 - ) Glucose 126 H mg/dL (65-110) POC Capillary Glucose 122 H mg/dl (65-105) Calcium 8.5 mg/dL (8.4-10.2) Magnesium 1.8 mg/dL (1.6-2.3) Total Bilirubin 0.6 mg/dL (0.2-1.3) AST 18 U/L (17-59) ALT 14 U/L (6-50) Alkaline Phosphatase 84 U/L (38-126) Total Protein 7.0 g/dL (6.3-8.2) Albumin 3.6 g/dL (3.5-5.1) Vancomycin Trough 13.8 ug/mL (10.0-20.0) Patient hx anesthesia problems: none Family hx anesthesia problems: none Results Review: All pre-operative results and documents have been reviewed as part of the pre-operative evaluation. [facility] Past Medical History Medical History (Reviewed 09/17/22 @ 13:10
--- NOTE | 2022-09-19 13:11 | WPDTEECHO ---
TOMY TransEsophageal Echocardiogram Date of procedure: 09/19/22 Procedure Type: Transesophageal echocardiogram Diagnosis: possible endocarditis, mitral valve echodensity history of recurrent strokes Indications: possible endocarditis, mitral valve echodensity history of recurrent strokes Image Quality: acceptable Findings: Brief history present illness: Patient is a pleasant 61-year-old male with a history of recurrent strokes, reported paroxysmal atrial fibrillation not on anticoagulation due to history of recurrent falls, hypertension, CAD status post CABG, history of dementia, type 2 diabetes mellitus, carotid arterial stenosis, peripheral arterial disease presents with hypertensive urgency and concern for recurrent stroke where mitral valve echodensity was noted on surface echocardiogram subsequently referred for transesophageal echocardiogram for further evaluation. Procedure in detail: After verbal and written informed consent was obtained the patient risks, benefits, and alternatives explained in detail the patient agreed to proceed with the plan of care as outlined above. The patient was evaluated at bedside in the gastroenterology procedure room. The posterior oropharynx, neck, and jaw angle all within normal limits on examination. Lungs were clear to auscultation. See pre-sedation note for further details The patient was then placed in the appropriate 30 to 45 degree angle supine position at a slight left lateral decubitus position. Patient was monitored throughout the study with telemetry, oxygen saturation, end-tidal CO2 monitoring, blood pressure, heart rate, and respirations. Oral bite block was placed. After confirmation of adequate sedation, the transesophageal echocardiogram probe was advanced through the oral bite block into the posterior hypopharynx and into the esophagus easily and without complication. Multiple, multiplanar echocardiographic images were obtained in multiple standard re- projections. Pulsed wave, continuous-wave, and color-flow Doppler were utilized in conjunction with this study. At the conclusion of the study, the transesophageal echocardiogram probe was removed easily and without complication. The patient tolerated the procedure well without difficulty. Patient was in sinus rhythm throughout the study. Moderate Sedation/Anesthesia administration: Please see Anesthesiology documentation for details and protocol for anesthesia administration. FINDINGS: LEFT VENTRICLE: Size and systolic function were within normal limits without wall motion abnormalities with ejection fraction of 55-60% with least moderate left ventricular hypertrophy with asymmetric septal predominance. RIGHT VENTRICLE: Size and systolic function within normal limits. LEFT ATRIUM: Mild to moderate enlargement. RIGHT ATRIUM: Mild right atrial enlargement. Linear echodensity consistent with remnant eustachian valve. INTERATRIAL SEPTUM: Interatrial septum is anatomically normal without evidence of shunt with color-flow Doppler nor with injection of agitated saline with and without Valsalva. MITRAL VALVE: Mitral valve is anatomically normal with preserved leaflet excursion and trace to mild regurgitation. There were no mobile echo densities or vegetations identified. There was a 1.7 x 1.4 cm well-circumscribed calcified echogenicity located the mitral annulus clearly not involving the posterior mitral valve leaflet most likely consistent with severe focal mitral annular calcification. AORTIC VALVE: The aortic valve was an anatomically normal 3 leaflet structure with normal leaflet excursion and trivial regurgitation identified. TRICUSPID VALVE: The tricuspid valve is anatomically normal with normal leaflet excursion with trivial regurgitation identified. No mobile elements identified. PULMONIC VALVE: Pulmonic valve was not well visualized, however, trivial regurgitation was identified. LEFT ATRIAL APPENDAGE:
--- NOTE | 2022-09-19 13:13 | WPDPN ---
Progress Note: A&P Assessment and Plan (1) Hypertensive emergency: Code(s): I16.1 - Hypertensive emergency Status: Acute Assessment and Plan: Admit to ICU, on Nicardipine drip Permissive hypertension, continuous telemetry Continuous pulse ox, supportive care 09/19/2022 interval history: 61 y/o male presented with emergently elevated BP and was started on Nicardipine drip and seen by logging crew foreman and his blood pressure is trending down, patient clinical symptoms are improving, patient had a cardiac echo and suspect patient may have vegetation and instructor extension work is recommending TOMY to further revaluate, which is scheduled for Saturday, patient also has history of A. Fib, rate is controlled and sometime jayjay, patient has CHADS2 Vasc score 6 and he is not anticoagulated, will benefit with anticaogulation to prevent embolic stroke however patient has anemia and frequent falls, on 09/18 patient's was present in the room, patient has history of night terror and falling out of the bed, discuss with nusing, will monitor, also patient has sleep apnea, will need sleep study as an outpatien, patient stats he is feeling much better and denies any CP, or shortness of breath. he is scheduled of TOMY later today, will follow up. 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): Code(s): I69.322 - Dysarthria following cerebral infarction Status: Acute Assessment and Plan: Appears to be resolving (3) Atrial fibrillation: Code(s): I48.91 - Unspecified atrial fibrillation Status: Acute Assessment and Plan: Bradycardic right now (4) Left-sided weakness: Code(s): R53.1 - Weakness Status: Acute Assessment and Plan: Appreciate neurology consultation (5) AMS (altered mental status): Code(s): R41.82 - Altered mental status, unspecified Status: Acute Assessment and Plan: Appreciate logging crew foreman consultation (6) Acute kidney injury superimposed on CKD: Code(s): N17.9 - Acute kidney failure, unspecified; N18.9 - Chronic kidney disease, unspecified Status: Acute Assessment and Plan: Renal ultrasound within normal limits Creatinine appears to be worsening Defer further management to logging crew foreman Plan DVT prophylaxis with SCDs GI prophylaxis not indicated Code status full code Subjective Date/time seen: 09/19/22 13:13 Interval history: Admit to ICU, on Nicardipine drip Permissive hypertension, continuous telemetry Continuous pulse ox, supportive care 09/19/2022 interval history: 61 y/o male presented with emergently elevated BP and was started on Nicardipine drip and seen by logging crew foreman and his blood pressure is trending down, patient clinical symptoms are improving, patient had a cardiac echo and suspect patient may have vegetation and instructor extension work is recommending TOMY to further revaluate, which is scheduled for Saturday, patient also has history of A. Fib, rate is controlled and sometime jayjay, patient has CHADS2 Vasc score 6 and he is not anticoagulated, will benefit with anticaogulation to prevent embolic stroke however patient has anemia and frequent falls, on 09/18 patient's was present in the room, patient has history of night terror and falling out of the bed, discuss with nusing, will monitor, also patient has sleep apnea, will need sleep study as an outpatien, patient stats he is feeling much better and denies any CP, or shortness of breath. he is scheduled of TOMY later today, will follow up. Review of Systems Review of Systems: 12 point review of systems was assessed and was negative except as noted in the HPI All systems reviewed & are unremarkable except as noted in HPI and below Exam Narrative: Patient is comfortable, NAD HEENT: eyes are clear and none icteric LUNGS: Normal respiratory ABD: Distended Lower extremities: no edema SKIN: nonjaundiced Neuro: david
--- NOTE | 2022-09-19 13:15 | PM.PNNEP ---
Progress Note: A&P Assessment and Plan (1) Acute kidney injury: Code(s): N17.9 - Acute kidney failure, unspecified Status: Acute Assessment and Plan: multifactorial etiology: HTN urgency potential overcontrol of blood pressure contrast exposure prerenal factors YOGI-I prior to admission evaluation to date: renal ultrasound unremarkable urine electrolytes non-prerenal UA suggestive of infection CPK normal slow improvement in creatinine good urine output given the severity of his HTN urgency (and unclear of duration), he may have a new baseline creatinine however, it may also take several weeks for his renal function to normalize continue to follow trend of repeat labs and UOP (2) Hypertension, uncontrolled: Code(s): I10 - Essential (primary) hypertension Status: Acute Assessment and Plan: better control at this time extremely elevated on admission requiring nicardipine gtt follow trend of hemodynamics on oral medications if remains elevated, agree with Cardiology with regard to possible addition of hydralazine +/- nitrates; alternatively, consider changing amlodipine to nifedipine XL (3) UTI (urinary tract infection): Code(s): N39.0 - Urinary tract infection, site not specified Status: Acute Assessment and Plan: admission UA highly suggestive however, urine culture negative at this time on antibiotics (4) AMS (altered mental status): Code(s): R41.82 - Altered mental status, unspecified Status: Acute Assessment and Plan: significantly improved since admission suspect hypertensive encephalopathy CT and CTA head unremarkable Brain MRI negative for acute CVA continue supportive therapy (5) Mitral valve disease: Code(s): I05.9 - Rheumatic mitral valve disease, unspecified Status: Acute Assessment and Plan: echocardiogram results noted: well-circumscribed, fixed echogenicity on the posterior mitral valve leaflet.? This may be consistent with severe mitral annular calcification, however, given its bright echogenicity and well-circumscribed appearance cannot rule out vegetation.? Clinical correlation advised.? Consider transesophageal echocardiogram if clinically indicated. 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 Will continue to follow. Subjective Date/time seen: 09/19/22 13:15 Interval history: Follow-up for acute kidney injury/acute renal failure. S/P TOMY earlier today and tolerated the procedure reasonably well - no findings of endocarditis noted; otherwise, appears to be doing reasonably well; no apparent distress noted; no other acute complaints voiced at this time; renal function stable if not improving. Exam Narrative: General: WD/WN male in NAD Heart: normal S1 and S2; no rub Lungs: clear anteriorly; decreased at right base Abdomen: soft, nontender, nondistended, positive bowel sounds Extremities: no cyanosis or clubbing; no edema Skin: healing wounds noted Objective Data Vital Signs Vital Signs: Vital Signs Temp Pulse Resp BP Pulse Ox O2 Del Method O2 Flow Rate 09/19/22 13:15 57 L 18 140/59 L 100 Nasal Cannula 2 09/19/22 12:00 64 09/19/22 08:46 94 Room Air 09/19/22 08:00 59 L 16 92 Nasal Cannula 0 09/19/22 08:00 98.9 F 59 L 1
--- NOTE | 2022-09-19 13:15 | P.PNNP_ITS ---
Progress Note: A&P Assessment and Plan (1) Acute kidney injury: Code(s): N17.9 - Acute kidney failure, unspecified Status: Acute Assessment and Plan: * multifactorial etiology: * HTN urgency * potential overcontrol of blood pressure * contrast exposure * prerenal factors * YOGI-I prior to admission * evaluation to date: * renal ultrasound unremarkable * urine electrolytes non-prerenal * UA suggestive of infection * CPK normal * slow improvement in creatinine * good urine output * given the severity of his HTN urgency (and unclear of duration), he may have a new baseline creatinine * however, it may also take several weeks for his renal function to normalize * continue to follow trend of repeat labs and UOP (2) Hypertension, uncontrolled: Code(s): I10 - Essential (primary) hypertension Status: Acute Assessment and Plan: * better control at this time * extremely elevated on admission requiring nicardipine gtt * follow trend of hemodynamics on oral medications * if remains elevated, agree with Cardiology with regard to possible addition of hydralazine +/- nitrates; alternatively, consider changing amlodipine to nifedipine XL (3) UTI (urinary tract infection): Code(s): N39.0 - Urinary tract infection, site not specified Status: Acute Assessment and Plan: * admission UA highly suggestive * however, urine culture negative at this time * on antibiotics (4) AMS (altered mental status): Code(s): R41.82 - Altered mental status, unspecified Status: Acute Assessment and Plan: * significantly improved since admission * suspect hypertensive encephalopathy * CT and CTA head unremarkable * Brain MRI negative for acute CVA * continue supportive therapy (5) Mitral valve disease: Code(s): I05.9 - Rheumatic mitral valve disease, unspecified Status: Acute Assessment and Plan: * echocardiogram results noted: * well-circumscribed, fixed echogenicity on the posterior mitral valve l eaflet.? This may be consistent with severe mitral annular calcification, however, given its bright echogenicity and well-circumscribed appearance cannot rule out vegetation.? Clinical correlation advised.? Consider transesophageal echocardiogram if clinically indicated. 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 Will continue to follow. Subjective Date/time seen: 09/19/22 13:15 Interval history: Follow-up for acute kidney injury/acute renal failure. S/P TOMY earlier today and tolerated the procedure reasonably well - no findings of endocarditis noted; otherwise, appears to be doing reasonably well; no apparent distress noted; no other acute complaints voiced at this time; renal function stable if not improving. Exam Narrative: General: WD/WN male in NAD Heart: normal S1 and S2; no rub Lungs: clear
--- NOTE | 2022-09-19 15:04 | PCPTNOTE ---
PT attempted to see patient 3x today. Patient with OT on first attempt, out of room for testing on second attempt, and patient declined PT on third attempt stating he did not feel well. PT will continue to follow per plan of care.
[2022-09-19 16:17] LABS: Glucose Point of Care 229 mg/dl (65-105)
[2022-09-19] MEDS: METOCLOPRAMIDE HCL 5 MG TABLET PO ×2 (16:55→20:11)
[2022-09-19] MEDS: amLODIPine BESYLATE 5 MG TABLET 10 MG PO (16:57)
[2022-09-19] MEDS: INSULIN ASPART (*BKC) 100 UNITS/ML SUB-Q ×2 (16:58→20:09)
[2022-09-19 19:55] LABS: Glucose Point of Care 231 mg/dl (65-105)
[2022-09-19] MEDS: MELATONIN 3 MG TABLET PO (20:11)
[2022-09-20] VITALS (8 sets, daily range): BP systolic 163–164; BP diastolic 59–64; PULSE 56–72; RESP 16; TEMP 36.6; O2SAT 91–96
[2022-09-20] MEDS: ATORVASTATIN 40 MG TABLET 80 MG PO (02:33)
--- NOTE | 2022-09-20 02:48 | PC.NURSE ---
transfered to room 247 via bed
[2022-09-20 05:04] LABS: Hematocrit 32.1 % (42.0-52.0); Hemoglobin 10.5 g/dL (14.0-18.0); Mean Corpuscular HGB Conc 32.7 g/dl (32-36); Mean Corpuscular Hemoglobin 29.2 pg (26-34); Mean Corpuscular Volume 89.2 fl (80-100); Mean Platelet Volume 11.4 fl (7.4-10.4); Platelet Count Result 213 k/mm3 (150-375); White Blood Count 10.1 K/mm3 (4.5-10.0)
[2022-09-20] MEDS: glipiZIDE 5 MG TABLET PO (05:09)
[2022-09-20] MEDS: METOCLOPRAMIDE HCL 5 MG TABLET PO ×3 (05:09→17:20)
[2022-09-20 05:17] LABS: Alanine Aminotransferase 14 U/L (6-50); Alkaline Phosphatase 73 U/L (38-126); Anion Gap 5 mmol/L (8-16); Aspartate Amino Transferase 16 U/L (17-59); Bilirubin,Total 0.4 mg/dL (0.2-1.3); Blood Urea Nitrogen 21 mg/dL (9-20); Calcium 8.1 mg/dL (8.4-10.2); Carbon Dioxide 27 mmol/L (22-30); Chloride 104 mmol/L (98-107); Estimated CRCL calculation 37 ml/min; Estimated Glomerular Filt Rate 34; Glucose 194 mg/dL (65-110); Magnesium 1.7 mg/dL (1.6-2.3); Potassium 3.7 mmol/L (3.4-5.0); Sodium 136 mmol/L (137-145)
[2022-09-20 08:33] LABS: Glucose Point of Care 152 mg/dl (65-105)
[2022-09-20] MEDS: ASPIRIN 325 MG ENTERIC TABLET PO (09:32)
[2022-09-20] MEDS: CHOLECALCIFEROL 400 UNITS TABLET (VIT D) PO (09:32)
[2022-09-20] MEDS: carvediloL 12.5 MG TABLET PO (09:32)
[2022-09-20] MEDS: INSULIN GLARGINE (*BKC) 100 UNITS/ML 15 UNITS SUB-Q (09:34)
[2022-09-20] MEDS: CLOPIDOGREL BISULFATE 75 MG TABLET PO (09:34)
[2022-09-20] MEDS: PARoxetine 20 MG TABLET 40 MG PO (09:34)
[2022-09-20] MEDS: PANTOPRAZOLE 40 MG TABLET PO (09:34)
[2022-09-20] MEDS: VANCOMYCIN 1,000 MG/NS 250 ML 1,000 MG/250 ML BAG 250 MG IVPB (11:08)
[2022-09-20 12:19] LABS: Glucose Point of Care 180 mg/dl (65-105)
--- NOTE | 2022-09-20 12:21 | PM.DS ---
DS: Admitting Diagnosis Discharge Date 09/20/2022 Admitting Diagnosis AMS DS: Discharge Diagnosis Discharge Diagnosis (1) Hypertensive emergency: Code(s): I16.1 - Hypertensive emergency Status: Acute Assessment and Plan: Admit to ICU, on Nicardipine drip Permissive hypertension, continuous telemetry Continuous pulse ox, supportive care 09/19/2022 interval history: 61 y/o male presented with emergently elevated BP and was started on Nicardipine drip and seen by tenant relations coordinator and his blood pressure is trending down, patient clinical symptoms are improving, patient had a cardiac echo and suspect patient may have vegetation and archival records clerk is recommending TOMY to further revaluate, which is scheduled for Saturday, patient also has history of A. Fib, rate is controlled and sometime jayjay, patient has CHADS2 Vasc score 6 and he is not anticoagulated, will benefit with anticaogulation to prevent embolic stroke however patient has anemia and frequent falls, on 09/18 patient's was present in the room, patient has history of night terror and falling out of the bed, discuss with nusing, will monitor, also patient has sleep apnea, will need sleep study as an outpatien, patient stats he is feeling much better and denies any CP, or shortness of breath. he is scheduled of TOMY later today, will follow up. 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): Code(s): I69.322 - Dysarthria following cerebral infarction Status: Acute Assessment and Plan: Appears to be resolving (3) Atrial fibrillation: Code(s): I48.91 - Unspecified atrial fibrillation Status: Acute Assessment and Plan: Bradycardic right now (4) Left-sided weakness: Code(s): R53.1 - Weakness Status: Acute Assessment and Plan: Appreciate neurology consultation (5) AMS (altered mental status): Code(s): R41.82 - Altered mental status, unspecified Status: Acute Assessment and Plan: Appreciate tenant relations coordinator consultation (6) Acute kidney injury superimposed on CKD: Code(s): N17.9 - Acute kidney failure, unspecified; N18.9 - Chronic kidney disease, unspecified Status: Acute Assessment and Plan: Renal ultrasound within normal limits Creatinine appears to be worsening Defer further management to tenant relations coordinator Plan DVT prophylaxis with SCDs GI prophylaxis not indicated Code status full code DS: Summary Hospital Course Reason for hospitalization: AMS Narrative: This is 61 yo male with PMHx significant for Stroke, Left sided hemiplegia, bed bound, A.fib, 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 History has been obtained from who is at bed side according to her patient had not been feeling well since waking up in am, slept more than usual did not want his breakfast and stated to complain of a headache later in the day it was also noted that he was more weak and became lethargic it was when EMS was called, and patient was rushed to the ED upon arrival to ED patient was found to have a SBP =244 patient was started on Nicardipine drip. Preliminary work up is significant for BNP upwards 7000, Bun/Cr? 07/04.4 a CTA was reported as: Hospital Course: 61 y/o male presented with emergently elevated BP and was started on Nicardipine drip and seen by tenant relations coordinator and his blood pressure is trending down, patient clinical symptoms are improving, patient had a cardiac echo and suspect patient may have vegetation and archival records clerk is recommending TOMY to further revaluate, which is scheduled for Saturday, patient also has history of A. Fib, rate is controlled and sometime jayjay, patient has CHADS2 Vasc score 6 and he is not anticoagulated,? will benefit with anticaogulation to prevent embolic stroke however patient has anemia and frequent falls, ? on 09/18 patient's was present in the room, patient has history of night terror and falling out of the bed, discuss with hakeem
[2022-09-20 16:58] LABS: Glucose Point of Care 188 mg/dl (65-105)
[2022-09-20] MEDS: amLODIPine BESYLATE 5 MG TABLET 10 MG PO (17:21)
== END 2022-09-20 18:25 | disposition home health service (06) | DRG 305 ==
LOC: ANHED 19:57 → ANHICU 22:38 → ANH2MED 09-20 12:19 → ANHICU 09-21 09:22
PROVIDERS: Internal Medicine; Internal Medicine Cardiovascular Disease; Internal Medicine Nephrology; Admitting Provider Internal Medicine; Emergency Provider Emergency Medicine; PCP Internal Medicine; Visit Provider Family Medicine
PROC: B24BZZ4 Ultrasonography of Heart with Aorta, Transesophageal (ICD-10-PCS; CPT 93312; principal; 2022-09-19 13:00)
DX: I16.1 Hypertensive emergency (principal); I69.354 Hemiplegia and hemiparesis following cerebral infarction affecting left non-dominant side; N17.9 Acute kidney failure, unspecified; I67.4 Hypertensive encephalopathy; N39.0 Urinary tract infection, site not specified; T80.1XXA Vascular complications following infusion, transfusion and therapeutic injection, initial encounter; I13.0 Hypertensive heart and chronic kidney disease with heart failure and stage 1 through stage 4 chronic kidney disease, or unspecified chronic kidney disease; I80.8 Phlebitis and thrombophlebitis of other sites; E11.65 Type 2 diabetes mellitus with hyperglycemia; I50.9 Heart failure, unspecified; E11.22 Type 2 diabetes mellitus with diabetic chronic kidney disease; N18.9 Chronic kidney disease, unspecified; I73.9 Peripheral vascular disease, unspecified; F31.9 Bipolar disorder, unspecified; K21.9 Gastro-esophageal reflux disease without esophagitis; F01.50 Vascular dementia, unspecified severity, without behavioral disturbance, psychotic disturbance, mood disturbance, and anxiety; I25.10 Atherosclerotic heart disease of native coronary artery without angina pectoris; I05.9 Rheumatic mitral valve disease, unspecified; I48.91 Unspecified atrial fibrillation; D72.829 Elevated white blood cell count, unspecified; K59.01 Slow transit constipation; Z95.820 Peripheral vascular angioplasty status with implants and grafts; I25.2 Old myocardial infarction; Z95.5 Presence of coronary angioplasty implant and graft; Z95.1 Presence of aortocoronary bypass graft; I69.322 Dysarthria following cerebral infarction
CPT/HCPCS: 36415; 70450; 70496; 70498; 70551; 71045; 71250; 73100; 73120; 76775; 80053; 80202; 81001; 82140; 82550; 82570; 82948; 83605; 83735; 83880; 84145; 84300; 84443; 84484; 85025; 85027; 85610; 85730; 87040; 87086; 87088; 92523; 92610; 93005; 93312; 93320; 93325; 94762; 96365; 96366; 96375; 97110; 97162; 97165; 97530; 97535; 99285; A9270; C8929; G0378; J0360; J0696; J1815; J1940; J2405; J2704; J3370; J7030; P9047; Q9957; Q9967

== ENCOUNTER 2023-01-25 08:05 | Inpatient (IN) | payer MEDICARE, SELFPAY ==
[2023-01-25] VITALS (24 sets, daily range): BP systolic 181–236; BP diastolic 51–83; PULSE 53–88; RESP 14–20; TEMP 36.4–36.7; O2SAT 94–98
--- NOTE | ~2023-01-25 | XR_ITS ---
EXAMINATION: XR chest 2V DATE: 01/25/2023 08:51 INDICATION: Congestive heart failure, shortness of breath TECHNIQUE: AP and lateral views of the chest are obtained. COMPARISON: 09/14/2022 FINDINGS: Cardiomegaly is noted. There is mild diffuse interstitial pattern. There are small pleural effusions. No pneumothorax is identified. Median sternotomy wires and mediastinal surgical clips are seen, likely from prior coronary artery bypass grafting. There are bridging osteophytes at multiple l evels in the spine, consistent with diffuse idiopathic skeletal hyperostosis (DISH). IMPRESSION: 1. Cardiomegaly with mild pulmonary edema. Reviewed, dictated and finalized at location B. GERIATRIC
--- NOTE | ~2023-01-25 | US_ITS ---
EXAMINATION: US venous doppler [facility] DATE: 01/26/2023 17:24 INDICATION: marked edema . TECHNIQUE: Grayscale images without and with compression and Doppler images of the left lower extremi ty veins were obtained. COMPARISON: None FINDINGS: The left common femoral vein, profunda (deep) femoral vein, femoral vein, popliteal vein, peroneal v ein, posterior tibial veins, gastrocnemius vein, and greater saphenous vein are patent. IMPRESSION: Patent left lower extremity veins. No evidence of deep venous thrombosis. Reviewed, dictated and finalized at location K. UNICATIONS EXECUTIVE
--- NOTE | ~2023-01-25 | US_ITS ---
EXAMINATION: US venous doppler [facility] DATE: 01/26/2023 17:27 INDICATION: marked edema . TECHNIQUE: Grayscale ultrasound images without and with compression and Doppler ultrasound images of the left upper extremity veins were obtained. COMPARISON: None. FINDINGS: The visualized portions of the left internal jugular vein, subclavian vein, axillary vein, brachial v eins, basilic vein, cephalic vein, radial vein, and ulnar vein are patent. IMPRESSION: No deep venous thrombosis. Reviewed, dictated and finalized at location K. AL PROJECT MANAGER IMPRESSION: No deep venous thrombosis.
--- NOTE | 2023-01-25 08:10 | ECG_ITS ---
Measurements Intervals [place] Rate: 57 P: 37 DC: 202 QRS: 1 QRSD: 146 T: 7 QT: 486 QTc: 477 Interpretive Statements SINUS BRADYCARDIA RIGHT BUNDLE BRANCH BLOCK VOLTAGE CRITERIA FOR LVH BASELINE ARTIFACT- V3-V6 ABNORMAL ECG COMPARED TO ECG 09/19/2022 12:15:49 SINUS BRADYCARDIA NOW PRESENT Electronically Signed On 01-25-2023 8:35:52 CARTON REPAIRER by Silas Souza D.O.
[2023-01-25] MEDS: FUROSEMIDE INJ 40 MG/4 ML VIAL IV PUSH (08:30)
[2023-01-25 08:33] LABS: Basophils Absolute Auto 0.1 K/mm3 (0.0-0.1); Basophils Percent Auto 1.1 % (0.2-1.2); Eosinophils Absolute Auto 0.4 K/mm3 (0-0.3); Eosinophils Percent Auto 5.1 % (0-4.4); Hematocrit 37.5 % (42.0-52.0); Hemoglobin 11.8 g/dL (14.0-18.0); Immature Granulocyte Absolute 0.03 K/mm3 (0.00-0.031); Immature Granulocyte Percent A 0.4 % (0-0.5); Lymphocytes Absolute Auto 1.89 K/mm3 (0.9-3.2); Lymphocytes Percent Auto 23.3 % (18.3-44.2); Mean Corpuscular HGB Conc 31.5 g/dl (32-36); Mean Corpuscular Hemoglobin 28.9 pg (26-34); Mean Corpuscular Volume 91.7 fl (80-100); Mean Platelet Volume 10.6 fl (7.4-10.4); Monocytes Absolute Auto 0.5 K/mm3 (0.1-0.6); Neutrophils Absolute Auto 5.2 K/mm3 (1.3-6.7); Neutrophils Percent Auto 64.1 % (45.5-73.1); Platelet Count Result 217 k/mm3 (150-375); Red Blood Count 4.09 M/mm3 (4.6-6.20); Red Cell Distribution Width 13.2 % (11.5-14.5); White Blood Count 8.1 K/mm3 (4.5-10.0)
--- NOTE | 2023-01-25 08:35 | ED.SOB ---
HPI - SOB/Dyspnea General Chief Complaint: Shortness of Breath/Dyspnea Stated Complaint: CHF Time Seen by Provider: 01/25/23 08:14 History of Present Illness HPI Narrative: Patient with history of CHF, multiple prior CVA, presents here with increased left-sided swelling and difficulty breathing, which feels like his usual heart failure exacerbation. He has also noticed some weight gain. They tried taking [id number] diuresis medication with only very minimal improvement. He has no chest pain. Related Data Home Medications Medication Instructions Recorded Confirmed clopidogrel 75 mg tablet 75 mg PO DAILY 03/04/19 09/14/22 omeprazole 20 mg capsule,delayed 20 mg PO DAILY 03/04/19 09/14/22 release paroxetine HCl 20 mg tablet 40 mg PO DAILY 03/04/19 09/14/22 ramipril 10 mg capsule 10 mg PO DAILY 03/04/19 09/14/22 cetirizine 10 mg tablet 10 mg PO DAILY PRN Congestion 09/14/22 09/14/22 cholecalciferol (vitamin D3) 10 10 mcg PO DAILY 09/14/22 09/14/22 mcg (400 unit) capsule docusate sodium 100 mg capsule 100 mg PO Q12HR PRN Constipation 09/14/22 09/14/22 glipizide 5 mg tablet 5 mg PO BID 09/14/22 09/14/22 Allergies Allergy/AdvReac Type Severity Reaction Status Date / Time No Known Allergies Allergy Verified 10/17/19 11:10 Review of Systems Review of Systems: CONST: No fever. HEENT: No sore throat C/V: No chest pain RESP: Difficulty breathing GI: Increased abdominal distention : No dysuria. M/S: Left arm and leg swelling SKIN: No rash. 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 GERD (gastroesophageal reflux disease) History of multiple cerebrovascular accidents (CVAs) HTN (hypertension) Myocardial infarction Peripheral artery disease Two stents in the left lower extremity 1 stent in the right lower extremity with peripheral stents placed sometime between 2012 2014 UTI (urinary tract infection) Vascular dementia Surgical History Surgical History H/O cardiac catheterization H/O heart artery stent 2018 S/P CABG x 18 November 2001 Family History Family History Mother Acute myocardial infarction Cerebrovascular accident Diabetes mellitus Hypertension Sibling Acute myocardial infarction AIDS Sibling AIDS Social History Social History Social History: patient lives with his who does work. Patient lives in a mobile home. Prior to this patient was independent but had some history is of falls Smoking status: Never smoker Second hand tobacco smoke exposure: Yes Alcohol intake: never Substance use: never Substance use type: does not use Lack of Transportation: YES Lack of Food: Never True Current Housing: I Have Housing Concerned About Future Housing: No Difficulty Paying Gas/Electric Bills: No Difficulty Paying for Meds: No Currently Unemployed: No Education: High School Diploma/GED Difficulty w/ Childcare or Family Care: YES Gender identity (if verbalized by the patient): Male Spiritual care concerns: No Agree to blood products: Yes Exam Narrative: EXAMINATION OF ORGAN SYSTEMS/BODY AREAS: Constitutional: Vital signs per nursing GENERAL:[No acute distress, non-toxic appearing.] HEAD: Normal with no signs of head trauma. EYES: EOMI, conjunctiva normal ENT: Hearing grossly intact LUNGS: Nonlabored breathing. Some crackles bilaterally HEART: [Regular rate and rhythm] ABD: [Soft], [nontender to palpation] EXT: Slight dimin
[2023-01-25 08:43] LABS: Alanine Aminotransferase 19 U/L (6-50); Alkaline Phosphatase 87 U/L (38-126); Anion Gap 9 mmol/L (8-16); Aspartate Amino Transferase 18 U/L (17-59); Bilirubin,Total 0.5 mg/dL (0.2-1.3); Blood Urea Nitrogen 22 mg/dL (9-20); Calcium 8.2 mg/dL (8.4-10.2); Carbon Dioxide 26 mmol/L (22-30); Chloride 105 mmol/L (98-107); Estimated CRCL calculation 42 ml/min; Estimated Glomerular Filt Rate 39; Glucose 159 mg/dL (65-110); Potassium 4.3 mmol/L (3.4-5.0); Sodium 140 mmol/L (137-145)
[2023-01-25 08:44] LABS: Partial Thromboplastin Time 25.7 SECONDS (22.3-36.8); Prothrombin Time 13.7 Seconds (11.1-14.7)
[2023-01-25 08:54] LABS: NT Pro B Type Natriuretic Pept 7230 pg/mL (19.9-100); Troponin I 0.016 ng/mL (0.000-0.034)
--- NOTE | 2023-01-25 10:24 | PC.NURSE ---
Pt changed, repositioned comfortably in bed. Family at bedside requesting a catheter since we are giving IV Lasix and patient unable to get out of bed. Reports trouble with urinal, will speak with MD for order.
[2023-01-25] MEDS: NITROGLYCERIN SL 0.4 MG TABLET SUBLINGUAL (11:14)
[2023-01-25] MEDS: LIDOCAINE HCL 2% GEL UROJET 10 ML PKG MUCOUS MEM (11:20)
--- NOTE | 2023-01-25 13:28 | PM.IMHP ---
H&P: HPI History of Present Illness Date/Time: 01/25/23 14:00 Chief Complaint: Shortness of breath. Narrative: This is a 62-year-old male with history of strokes, vascular dementia, coronary artery disease status post 3 vessel coronary artery bypass in 2001, heart failure with preserved ejection fraction, peripheral arterial disease, hypertension, chronic kidney disease, and insulin-dependent type 2 diabetes mellitus who presented to the emergency department for evaluation of shortness of breath. The patient provides the following history. He reports increasing shortness of breath with lesser and exertion as well as an increase in swelling and weight gain over the past couple of weeks. His swelling is much worse on the left side which is not necessarily unusual for him. He is no longer on diuretics due to fluctuations in his renal function however has been taking [id number] diuretics for his symptoms without much benefit. He states compliance with his medications and he denies recent change in medications though he was prescribed amoxicillin at the beginning of the month for congestion. He denies fever, chills, sweats, chest pain, pleuritic pain, palpitations, sensations of racing heart, nausea, vomiting, difficulties urinating, and calf pain. He denies sick contacts and history of venous thromboembolism. Since arrival to the ED, his blood pressures have been running anywhere between the 180s to low 200s systolic. Preliminary workup is consistent with CHF exacerbation and he was given furosemide 40 mg IV x1. He is being admitted in this setting for further treatment. Review of Systems Review of Systems: Twelve systems were reviewed and are negative except for as per HPI. [facility] Past Medical History Medical History (Updated 01/25/23 @ 14:43 by Jolly Mullen PA-C) Bipolar disease, chronic Cerebrovascular accident Multiple strokes with residual left-sided weakness. Chronic kidney disease, stage 3 Coronary artery disease Diabetic peripheral neuropathy Gastroesophageal reflux disease Heart failure with preserved ejection fraction Hypertension Insulin dependent type 2 diabetes mellitus Myocardial infarction Paroxysmal atrial fibrillation Peripheral artery disease Vascular dementia Surgical History Surgical History (Updated 01/25/23 @ 14:37 by Jolly Mullen PA-C) History of cardiac catheterization History of coronary artery bypass graft x 3 (11/2001) History of coronary artery stent placement (2018) History of vascular surgery (2012) Bilateral lower extremity stents two stents. Family History Family History Mother Acute myocardial infarction Cerebrovascular accident Diabetes mellitus Hypertension Sibling Acute myocardial infarction AIDS Sibling AIDS Social History Social History (Updated 01/25/23 @ 20:40 by Jolly Mullen PA-C) Social History: Surrogate medical decision maker: Maite Rendon, spouse. Code status: Smoking status: Never smoker Second hand tobacco smoke exposure: Yes Alcohol intake: never Substance use: never Substance use type: does not use Lack of Transportation: No Lack of Food: Never True Current Housing: I Have Housing Concerned About Future Housing: No Difficulty Paying Gas/Electric Bills: No Difficulty Paying for Meds: No Currently Unemployed: No Education: High School Diploma/GED Difficulty w/ Childcare or Family Care: No Additional living arrangements comments: Lives with spouse. Spiritual care concerns: No Agree to blood products: Yes Meds Home Medications and Allergies Home Medications Medication Instructions Recorded Confirmed Type omeprazole 20 mg capsule,delayed 20 mg PO DAILY 03/04/19 01/25/23 History release paroxetine HCl 20 mg tablet 40 mg PO DAILY 03/04/19 01/25/23 History ramipril 10 mg capsule 10 mg PO DAILY 03/04/19 01/25/23 History atorvast
--- NOTE | 2023-01-25 13:43 | ADMGEN ---
This patient, Robert Rendon, was admitted to Virtual Bed 3rd Floor-2. Patient/family oriented to hospital policies and general routines including ID bracelet, bed and alarms, visiting hours, pain management, procedures, bathroom and other care routines, personal items, smoking policy, room service/diet, and visiting hours. Information on how to activate the Rapid Response Team has been discussed. Patient/Family are encouraged to report perceived risks to care and to ask questions if they do not understand what they are told or what they should do. Patient being held in the ER. Admission completed.
--- NOTE | 2023-01-25 16:35 | ADMGEN ---
This patient, Robert Rendon, was admitted to Medical Room 349-01. Patient/family oriented to hospital policies and general routines including ID bracelet, bed and alarms, visiting hours, pain management, procedures, bathroom and other care routines, personal items, smoking policy, room service/diet, and visiting hours. Information on how to activate the Rapid Response Team has been discussed. Patient/Family are encouraged to report perceived risks to care and to ask questions if they do not understand what they are told or what they should do.
[2023-01-25] MEDS: amLODIPine BESYLATE 5 MG TABLET 10 MG PO (18:41)
[2023-01-25 21:30] LABS: Hemoglobin A1C 8.3 % (<5.7)
[2023-01-25] MEDS: ATORVASTATIN 40 MG TABLET 80 MG PO (21:30)
[2023-01-25] MEDS: carvediloL 12.5 MG TABLET 25 MG PO (21:30)
[2023-01-25 21:31] LABS: Creatine Kinase 91 U/L (55-170); Magnesium 1.4 mg/dL (1.6-2.3); Potassium 3.9 mmol/L (3.4-5.0)
[2023-01-25] MEDS: MELATONIN 3 MG TABLET PO (21:31)
[2023-01-25 21:39] LABS: Glucose Point of Care 121 mg/dl (65-105)
[2023-01-25] MEDS: MAGNESIUM SULF 2 GM/WATER 50ML 2 GM/50 ML BAG IVPB (23:37)
[2023-01-25] MEDS: hydrALAZINE HCL 20 MG/ML VIAL 5 MG IV PUSH (23:37)
[2023-01-26] VITALS (13 sets, daily range): BP systolic 157–178; BP diastolic 55–70; PULSE 52–65; RESP 16–18; TEMP 36.1–36.8; O2SAT 91–95
[2023-01-26 05:31] LABS: Hematocrit 32.9 % (42.0-52.0); Hemoglobin 10.4 g/dL (14.0-18.0); Mean Corpuscular HGB Conc 31.6 g/dl (32-36); Mean Corpuscular Hemoglobin 28.7 pg (26-34); Mean Corpuscular Volume 90.6 fl (80-100); Mean Platelet Volume 10.6 fl (7.4-10.4); Platelet Count Result 198 k/mm3 (150-375); Red Blood Count 3.63 M/mm3 (4.6-6.20); Red Cell Distribution Width 13.1 % (11.5-14.5)
[2023-01-26] MEDS: hydrALAZINE HCL 20 MG/ML VIAL 5 MG IV PUSH (06:04)
[2023-01-26 08:35] LABS: Glucose Point of Care 111 mg/dl (65-105)
[2023-01-26 08:42] LABS: Anion Gap 3 mmol/L (8-16); Blood Urea Nitrogen 24 mg/dL (9-20); Calcium 8.2 mg/dL (8.4-10.2); Carbon Dioxide 27 mmol/L (22-30); Chloride 107 mmol/L (98-107); Estimated CRCL calculation 38 ml/min; Estimated Glomerular Filt Rate 34; Glucose 114 mg/dL (65-110); Magnesium 1.9 mg/dL (1.6-2.3); Sodium 137 mmol/L (137-145)
[2023-01-26] MEDS: carvediloL 12.5 MG TABLET 25 MG PO ×2 (09:31→17:38)
[2023-01-26] MEDS: GABAPENTIN 100 MG CAPSULE PO ×3 (09:32→17:38)
[2023-01-26] MEDS: ENOXAPARIN 40 MG/0.4 ML SYRINGE SUB-Q (09:32)
[2023-01-26] MEDS: glipiZIDE 5 MG TABLET 10 MG PO ×2 (09:32→17:39)
[2023-01-26] MEDS: FUROSEMIDE INJ 40 MG/4 ML VIAL 20 MG IV PUSH ×2 (09:32→17:39)
[2023-01-26] MEDS: ramipriL 5 MG CAPSULE 10 MG PO (09:33)
[2023-01-26] MEDS: PANTOPRAZOLE 40 MG TABLET PO (09:33)
[2023-01-26] MEDS: OMEGA 3 POLYUNSAT FATTY ACIDS 1 GM CAP PO (09:33)
[2023-01-26] MEDS: PARoxetine 20 MG TABLET 40 MG PO (09:34)
[2023-01-26 12:25] LABS: Glucose Point of Care 196 mg/dl (65-105)
[2023-01-26] MEDS: ACETAMINOPHEN 325 MG TABLET 650 MG PO (12:45)
--- NOTE | 2023-01-26 14:05 | P.PNIM_ITS ---
Progress Note: A&P Assessment and Plan (1) Acute on chronic congestive heart failure: Qualifiers: Heart failure type: combined systolic and diastolic Qualified Code(s): I50.43 - Acute on chronic combined systolic (congestive) and diastolic (congestive) heart failure Code(s): I50.9 - Heart failure, unspecified Status: Acute Assessment and Plan: * Daily weight * Accurate I&O * Last ECHO 09/2022 shows a preserved LVSF with EF of 55-60% and moderate LVH with asymmetric septal hypertrophy. * Continue Lasix 20 mg BID * Daily labs to monitor renal function and to ensure electrolyte stability. * Pt will need to be instructed to NOT continue OTC Diuretic of Diurex on discharge. * Continue fluid restriction as ordered. * Supplemental oxygen as needed. (2) Edema: Qualifiers: Edema type: unspecified Qualified Code(s): R60.9 - Edema, unspecified Code(s): R60.9 - Edema, unspecified Status: Acute Assessment and Plan: * Noted to the BLE with L>R. * Awaiting venous dopplers of the LUE and the LLE. * Elevate legs in bed for edema * Suspect combination of venous insufficiency and fluid overload vs. DVT. (3) Paroxysmal atrial fibrillation: Code(s): I48.0 - Paroxysmal atrial fibrillation Status: Chronic Assessment and Plan: * Continue Carvedilol for rate control * Pt. on Lovenox for VTE prophylaxis. (4) Insulin dependent type 2 diabetes mellitus: Code(s): E11.9 - Type 2 diabetes mellitus without complications; Z79.4 - [facility] (curr ent) use of insulin Status: Chronic Assessment and Plan: * Continue Glucose checks AC and HS and prn * Continue SSI * Continue hypoglycemia protocol * Continue heart healthy diet (5) Chronic kidney disease, stage 3: Qualifiers: Chronic kidney disease stage 3 subtype: stage 3b (GFR 30-44) Qualified Code(s): N18.32 - Chronic kidney disease, stage 3b Code(s): N18.30 - Chronic kidney disease, stage 3 unspecified Status: Chronic Assessment and Plan: * GFR is 34. * Cr/BUN at baseline at 2.0/24 * Avoid addition of renal offending agents and adjust Lasix for diuresis as needed. * May continue current Ramipril in the setting of no further acute decline in Renal function. Consider changing if pt has further decline in Renal function. (6) Hypertension: Qualifiers: Hypertension type: unspecified Qualified Code(s): I10 - Essential (primary) hypertension Code(s): I10 - Essential (primary) hypertension Status: Chronic Assessment and Plan: * Continue meds of Amlodipine 5 mg Q PM, Carvedilol 25 mg po BID, and Ramipril 10 mg po daily * Pt's BP's have been running intermittently high while he has been here. His SBP's have ranged from 170s-230s and DBP's have ranged 60s-80s. * PRN Hydralazine is ordered at this time with parameters to give for SBP of > or equal to 170 and DBP of > or equal to 90. * Continue to monitor vital signs and adjust medications appropriately. * Heart healthy diet. Time Spent With Patient Time with patient: 15 - 25 minutes Subjective Date/time seen: 01/26/23 1130 Interval history: This pt was examined at the bedside in interval assessment after being admitted to the hospital for CHF exacerbation. His home diuretics were recently discontinued after his renal function declined. Pt is not currently requiring supplemental oxygen. He is maintaining sats on Room air. Review of Systems Review of Systems: All systems reviewed & are unremarkable except as noted
--- NOTE | 2023-01-26 14:05 | PM.IMPN ---
Progress Note: A&P Assessment and Plan (1) Acute on chronic congestive heart failure: Qualifiers: Heart failure type: combined systolic and diastolic Qualified Code(s): I50.43 - Acute on chronic combined systolic (congestive) and diastolic (congestive) heart failure Code(s): I50.9 - Heart failure, unspecified Status: Acute Assessment and Plan: Daily weight Accurate I&O Last ECHO 09/2022 shows a preserved LVSF with EF of 55-60% and moderate LVH with asymmetric septal hypertrophy. Continue Lasix 20 mg BID Daily labs to monitor renal function and to ensure electrolyte stability. Pt will need to be instructed to NOT continue OTC Diuretic of Diurex on discharge. Continue fluid restriction as ordered. Supplemental oxygen as needed. (2) Edema: Qualifiers: Edema type: unspecified Qualified Code(s): R60.9 - Edema, unspecified Code(s): R60.9 - Edema, unspecified Status: Acute Assessment and Plan: Noted to the BLE with L>R. Awaiting venous dopplers of the LUE and the LLE. Elevate legs in bed for edema Suspect combination of venous insufficiency and fluid overload vs. DVT. (3) Paroxysmal atrial fibrillation: Code(s): I48.0 - Paroxysmal atrial fibrillation Status: Chronic Assessment and Plan: Continue Carvedilol for rate control Pt. on Lovenox for VTE prophylaxis. 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 Cr/BUN at baseline at 2.0/24 Avoid addition of renal offending agents and adjust Lasix for diuresis as needed. May continue current Ramipril in the setting of no further acute decline in Renal function. Consider changing if pt has further decline in Renal function. (6) Hypertension: Qualifiers: Hypertension type: unspecified Qualified Code(s): I10 - Essential (primary) hypertension Code(s): I10 - Essential (primary) hypertension Status: Chronic Assessment and Plan: Continue meds of Amlodipine 5 mg Q PM, Carvedilol 25 mg po BID, and Ramipril 10 mg po daily Pt's BP's have been running intermittently high while he has been here. His SBP's have ranged from 170s-230s and DBP's have ranged 60s-80s. PRN Hydralazine is ordered at this time with parameters to give for SBP of > or equal to 170 and DBP of > or equal to 90. Continue to monitor vital signs and adjust medications appropriately. Heart healthy diet. Time Spent With Patient Time with patient: 15 - 25 minutes Subjective Date/time seen: 01/26/23 1130 Interval history: This pt was examined at the bedside in interval assessment after being admitted to the hospital for CHF exacerbation. His home diuretics were recently discontinued after his renal function declined. Pt is not currently requiring supplemental oxygen. He is maintaining sats on Room air. Review of Systems Review of Systems: All systems reviewed & are unremarkable except as noted in HPI and below Exam Narrative: General: Pleasant male pt lying in bed in no acute distress with the head of the bed up at 30 degrees. HEENT: PERRL, EOMI. Sclera anicteric. Oral mucosa moist. Neck: Supple. No JVD or Hepatojugular reflex. Respiratory: Respirations are nonlabored and he is speaking in full sentences. Fine crackles heard at the bases. Cardiovascular: Regular rate and rhythm with S1-S2. Grade
[2023-01-26 17:35] LABS: Glucose Point of Care 118 mg/dl (65-105)
[2023-01-26] MEDS: amLODIPine BESYLATE 5 MG TABLET PO (17:40)
[2023-01-26] MEDS: ATORVASTATIN 40 MG TABLET 80 MG PO (21:00)
[2023-01-26] MEDS: MELATONIN 3 MG TABLET PO (21:00)
[2023-01-26 21:12] LABS: Glucose Point of Care 175 mg/dl (65-105)
[2023-01-27] VITALS (12 sets, daily range): BP systolic 149–182; BP diastolic 60–78; PULSE 54–64; RESP 18; TEMP 36.4–37; O2SAT 94–95
[2023-01-27 06:07] LABS: Basophils Absolute Auto 0.1 K/mm3 (0.0-0.1); Eosinophils Absolute Auto 0.5 K/mm3 (0-0.3); Eosinophils Percent Auto 5.1 % (0-4.4); Hematocrit 32.7 % (42.0-52.0); Hemoglobin 10.5 g/dL (14.0-18.0); Immature Granulocyte Absolute 0.02 K/mm3 (0.00-0.031); Immature Granulocyte Percent A 0.2 % (0-0.5); Lymphocytes Absolute Auto 2.26 K/mm3 (0.9-3.2); Lymphocytes Percent Auto 25.8 % (18.3-44.2); Mean Corpuscular HGB Conc 32.1 g/dl (32-36); Mean Corpuscular Hemoglobin 28.5 pg (26-34); Mean Corpuscular Volume 88.9 fl (80-100); Mean Platelet Volume 10.3 fl (7.4-10.4); Monocytes Absolute Auto 0.6 K/mm3 (0.1-0.6); Monocytes Percent Auto 7.1 % (2.6-8.5); Neutrophils Absolute Auto 5.3 K/mm3 (1.3-6.7); Neutrophils Percent Auto 60.8 % (45.5-73.1); Platelet Count Result 199 k/mm3 (150-375); Red Blood Count 3.68 M/mm3 (4.6-6.20); Red Cell Distribution Width 13.1 % (11.5-14.5); White Blood Count 8.8 K/mm3 (4.5-10.0)
[2023-01-27 06:20] LABS: Alanine Aminotransferase 15 U/L (6-50); Albumin Level 2.7 g/dL (3.5-5.1); Alkaline Phosphatase 89 U/L (38-126); Anion Gap 6 mmol/L (8-16); Aspartate Amino Transferase 20 U/L (17-59); Bilirubin,Total 0.6 mg/dL (0.2-1.3); Blood Urea Nitrogen 27 mg/dL (9-20); Calcium 8.3 mg/dL (8.4-10.2); Carbon Dioxide 27 mmol/L (22-30); Chloride 105 mmol/L (98-107); Estimated CRCL calculation 42 ml/min; Estimated Glomerular Filt Rate 39; Glucose 107 mg/dL (65-110); Magnesium 1.8 mg/dL (1.6-2.3); Sodium 138 mmol/L (137-145)
[2023-01-27] MEDS: polyethylene glycoL 3350 17 GM POWD.PACK PO (06:32)
[2023-01-27 08:40] LABS: Glucose Point of Care 128 mg/dl (65-105)
[2023-01-27] MEDS: carvediloL 12.5 MG TABLET 25 MG PO ×2 (08:58→17:23)
[2023-01-27] MEDS: glipiZIDE 5 MG TABLET 10 MG PO ×2 (08:59→17:24)
[2023-01-27] MEDS: GABAPENTIN 100 MG CAPSULE PO ×3 (08:59→17:24)
[2023-01-27] MEDS: ENOXAPARIN 40 MG/0.4 ML SYRINGE SUB-Q (08:59)
[2023-01-27] MEDS: FUROSEMIDE INJ 40 MG/4 ML VIAL 20 MG IV PUSH ×2 (08:59→17:23)
[2023-01-27] MEDS: OMEGA 3 POLYUNSAT FATTY ACIDS 1 GM CAP PO (09:00)
[2023-01-27] MEDS: PANTOPRAZOLE 40 MG TABLET PO (09:00)
[2023-01-27] MEDS: PARoxetine 20 MG TABLET 40 MG PO (09:01)
[2023-01-27] MEDS: ramipriL 5 MG CAPSULE 10 MG PO (09:01)
--- NOTE | 2023-01-27 11:17 | P.PNIM_ITS ---
Progress Note: A&P Assessment and Plan (1) Acute on chronic congestive heart failure: Qualifiers: Heart failure type: combined systolic and diastolic Qualified Code(s): I50.43 - Acute on chronic combined systolic (congestive) and diastolic (congestive) heart failure Code(s): I50.9 - Heart failure, unspecified Status: Acute Assessment and Plan: * Daily weight * Accurate I&O * Last ECHO 09/2022 shows a preserved LVSF with EF of 55-60% and moderate LVH with asymmetric septal hypertrophy. * Continue Lasix 20 mg BID * Daily labs to monitor renal function and to ensure electrolyte stability. * Pt will need to be instructed to NOT continue OTC Diuretic of Diurex on discharge. * Continue fluid restriction as ordered. * Supplemental oxygen as needed. (2) Edema: Qualifiers: Edema type: unspecified Qualified Code(s): R60.9 - Edema, unspecified Code(s): R60.9 - Edema, unspecified Status: Acute Assessment and Plan: * Noted to the BLE with L>R. * Awaiting venous dopplers of the LUE and the LLE. * Elevate legs in bed for edema * Suspect combination of venous insufficiency and fluid overload vs. DVT. 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 * Cr/BUN at baseline at 2.0/24 * Avoid addition of renal offending agents and adjust Lasix for diuresis as needed. * May continue current Ramipril in the setting of no further acute decline in Renal function. Consider changing if pt has further decline in Renal function. 01/27: Cr 1.8, eGFR 39 on morning labs (5) Hypertension: Qualifiers: Hypertension type: unspecified Qualified Code(s): I10 - Essential (primary) hypertension Code(s): I10 - Essential (primary) hypertension Status: Chronic Assessment and Plan: * Continue meds of Amlodipine 5 mg Q PM, Carvedilol 25 mg po BID, and Ramipril 10 mg po daily * Pt's BP's have been running intermittently high while he has been here. His SBP's have ranged from 170s-230s and DBP's have ranged 60s-80s. * PRN Hydralazine is ordered at this time with parameters to give for SBP of > or equal to 170 and DBP of > or equal to 90. * Continue to monitor vital signs and adjust medications appropriately. * Heart healthy diet. Blood pressures reviewed 01/27 (6) Paroxysmal atrial fibrillation: Code(s): I48.0 - Paroxysmal atrial fibrillation Status: Chronic Assessment and Plan: * Continue Carvedilol for rate control * Pt. on Lovenox for VTE prophylaxis. Time Spent With Patient Time with patient: 25 - 35 minutes Subjective Date/time seen: 01/27/23 11:17 Interval history: 01/26: This pt was examined at the bedside in interval assessment after being admitted to the hospital for CHF exacerbation. His home diuretics were recently discontinued after his renal function declined. Pt is not currently requiring supplemental oxygen. He is maintaining sats on Room
--- NOTE | 2023-01-27 11:17 | PM.IMPN ---
Progress Note: A&P Assessment and Plan (1) Acute on chronic congestive heart failure: Qualifiers: Heart failure type: combined systolic and diastolic Qualified Code(s): I50.43 - Acute on chronic combined systolic (congestive) and diastolic (congestive) heart failure Code(s): I50.9 - Heart failure, unspecified Status: Acute Assessment and Plan: Daily weight Accurate I&O Last ECHO 09/2022 shows a preserved LVSF with EF of 55-60% and moderate LVH with asymmetric septal hypertrophy. Continue Lasix 20 mg BID Daily labs to monitor renal function and to ensure electrolyte stability. Pt will need to be instructed to NOT continue OTC Diuretic of Diurex on discharge. Continue fluid restriction as ordered. Supplemental oxygen as needed. (2) Edema: Qualifiers: Edema type: unspecified Qualified Code(s): R60.9 - Edema, unspecified Code(s): R60.9 - Edema, unspecified Status: Acute Assessment and Plan: Noted to the BLE with L>R. Awaiting venous dopplers of the LUE and the LLE. Elevate legs in bed for edema Suspect combination of venous insufficiency and fluid overload vs. DVT. 01/27: US negative for DVT (3) Insulin dependent type 2 diabetes mellitus: Code(s): E11.9 - Type 2 diabetes mellitus without complications; Z79.4 - residential (current) use of insulin Status: Chronic Assessment and Plan: Continue Glucose checks AC and HS and prn Continue SSI Continue hypoglycemia protocol Continue heart healthy diet (4) Chronic kidney disease, stage 3: Qualifiers: Chronic kidney disease stage 3 subtype: stage 3b (GFR 30-44) Qualified Code(s): N18.32 - Chronic kidney disease, stage 3b Code(s): N18.30 - Chronic kidney disease, stage 3 unspecified Status: Chronic Assessment and Plan: GFR is 34. Cr/BUN at baseline at 2.0/24 Avoid addition of renal offending agents and adjust Lasix for diuresis as needed. May continue current Ramipril in the setting of no further acute decline in Renal function. Consider changing if pt has further decline in Renal function. 01/27: Cr 1.8, eGFR 39 on morning labs (5) Hypertension: Qualifiers: Hypertension type: unspecified Qualified Code(s): I10 - Essential (primary) hypertension Code(s): I10 - Essential (primary) hypertension Status: Chronic Assessment and Plan: Continue meds of Amlodipine 5 mg Q PM, Carvedilol 25 mg po BID, and Ramipril 10 mg po daily Pt's BP's have been running intermittently high while he has been here. His SBP's have ranged from 170s-230s and DBP's have ranged 60s-80s. PRN Hydralazine is ordered at this time with parameters to give for SBP of > or equal to 170 and DBP of > or equal to 90. Continue to monitor vital signs and adjust medications appropriately. Heart healthy diet. Blood pressures reviewed 01/27 (6) Paroxysmal atrial fibrillation: Code(s): I48.0 - Paroxysmal atrial fibrillation Status: Chronic Assessment and Plan: Continue Carvedilol for rate control Pt. on Lovenox for VTE prophylaxis. Time Spent With Patient Time with patient: 25 - 35 minutes Subjective Date/time seen: 01/27/23 11:17 Interval history: 01/26: This pt was examined at the bedside in interval assessment after being admitted to the hospital for CHF exacerbation. His home diuretics were recently discontinued after his renal function declined. Pt is not currently requiring supplemental oxygen. He is maintaining sats on Room air. 01/27: Patient reports improvement in swelling and resolution of dyspnea. Zuniga catheter in place due to need for significant diuresis and accurate I&O. Patient's states that he still has quite a bit of fluid retention. Plan is to check morning labs and assess renal response to continued diuresis. Zuniga to remain in place until tomorrow. Patient reports baseline urinary incontinence. Review
[2023-01-27 12:24] LABS: Glucose Point of Care 220 mg/dl (65-105)
[2023-01-27] MEDS: INSULIN ASPART (*BKC) 100 UNITS/ML SUB-Q (12:28)
[2023-01-27] MEDS: amLODIPine BESYLATE 5 MG TABLET PO (17:24)
[2023-01-27 17:25] LABS: Glucose Point of Care 141 mg/dl (65-105)
[2023-01-27] MEDS: MELATONIN 3 MG TABLET PO (20:51)
[2023-01-27] MEDS: ATORVASTATIN 40 MG TABLET 80 MG PO (20:51)
[2023-01-27 21:27] LABS: Glucose Point of Care 198 mg/dl (65-105)
[2023-01-28] VITALS (11 sets, daily range): BP systolic 148–185; BP diastolic 53–68; PULSE 54–62; RESP 16; TEMP 36.3–36.7; O2SAT 93–95
[2023-01-28 08:08] LABS: Hematocrit 37.4 % (42.0-52.0); Hemoglobin 11.8 g/dL (14.0-18.0); Mean Corpuscular HGB Conc 31.6 g/dl (32-36); Mean Corpuscular Hemoglobin 28.4 pg (26-34); Mean Corpuscular Volume 89.9 fl (80-100); Mean Platelet Volume 10.8 fl (7.4-10.4); Platelet Count Result 206 k/mm3 (150-375); Red Blood Count 4.16 M/mm3 (4.6-6.20); Red Cell Distribution Width 13.1 % (11.5-14.5); White Blood Count 8.5 K/mm3 (4.5-10.0)
[2023-01-28 08:19] LABS: Albumin Level 3.2 g/dL (3.5-5.1); Anion Gap 5 mmol/L (8-16); Blood Urea Nitrogen 26 mg/dL (9-20); Calcium 8.7 mg/dL (8.4-10.2); Carbon Dioxide 30 mmol/L (22-30); Chloride 102 mmol/L (98-107); Estimated CRCL calculation 41 ml/min; Estimated Glomerular Filt Rate 39; Glucose 169 mg/dL (65-110); Magnesium 1.7 mg/dL (1.6-2.3); Phosphorus 4.3 mg/dL (2.5-4.5); Potassium 4.3 mmol/L (3.4-5.0); Sodium 137 mmol/L (137-145)
[2023-01-28 08:26] LABS: Glucose Point of Care 172 mg/dl (65-105)
[2023-01-28] MEDS: carvediloL 12.5 MG TABLET 25 MG PO ×2 (09:54→16:39)
[2023-01-28] MEDS: OMEGA 3 POLYUNSAT FATTY ACIDS 1 GM CAP PO (09:54)
[2023-01-28] MEDS: glipiZIDE 5 MG TABLET 10 MG PO ×2 (09:54→16:39)
[2023-01-28] MEDS: GABAPENTIN 100 MG CAPSULE PO ×3 (09:54→16:39)
[2023-01-28] MEDS: FUROSEMIDE INJ 40 MG/4 ML VIAL 20 MG IV PUSH ×2 (09:54→16:39)
[2023-01-28] MEDS: PARoxetine 20 MG TABLET 40 MG PO (09:55)
[2023-01-28] MEDS: ramipriL 5 MG CAPSULE 10 MG PO (09:55)
[2023-01-28] MEDS: PANTOPRAZOLE 40 MG TABLET PO (09:55)
[2023-01-28] MEDS: ENOXAPARIN 40 MG/0.4 ML SYRINGE SUB-Q (09:56)
[2023-01-28] MEDS: ACETAMINOPHEN 325 MG TABLET 650 MG PO (11:18)
--- NOTE | 2023-01-28 11:40 | P.PNIM_ITS ---
Progress Note: A&P Assessment and Plan (1) Acute on chronic congestive heart failure: Qualifiers: Heart failure type: combined systolic and diastolic Qualified Code(s): I50.43 - Acute on chronic combined systolic (congestive) and diastolic (congestive) heart failure Code(s): I50.9 - Heart failure, unspecified Status: Acute Assessment and Plan: * Daily weight * Accurate I&O * Last ECHO 09/2022 shows a preserved LVSF with EF of 55-60% and moderate LVH with asymmetric septal hypertrophy. * Continue Lasix 20 mg BID * Daily labs to monitor renal function and to ensure electrolyte stability. * Pt will need to be instructed to NOT continue OTC Diuretic of Diurex on discharge. * Continue fluid restriction as ordered. * Supplemental oxygen as needed. (2) Edema: Qualifiers: Edema type: unspecified Qualified Code(s): R60.9 - Edema, unspecified Code(s): R60.9 - Edema, unspecified Status: Acute Assessment and Plan: * Noted to the BLE with L>R. * Awaiting venous dopplers of the LUE and the LLE. * Elevate legs in bed for edema * Suspect combination of venous insufficiency and fluid overload vs. DVT. 01/27: US negative for DVT left lower extremity and left upper extremity (3) Insulin dependent type 2 diabetes mellitus: Code(s): E11.9 - Type 2 diabetes mellitus without complications; Z79.4 - neurology physician assistant (current) use of insulin Status: Chronic Assessment and Plan: * Continue Glucose checks AC and HS and prn * Continue SSI * Continue hypoglycemia protocol * Continue heart healthy diet (4) Chronic kidney disease, stage 3: Qualifiers: Chronic kidney disease stage 3 subtype: stage 3b (GFR 30-44) Qualified Code(s): N18.32 - Chronic kidney disease, stage 3b Code(s): N18.30 - Chronic kidney disease, stage 3 unspecified Status: Chronic Assessment and Plan: * GFR is 34. * Cr/BUN at baseline at 2.0/24 * Avoid addition of renal offending agents and adjust Lasix for diuresis as needed. * May continue current Ramipril in the setting of no further acute decline in Renal function. Consider changing if pt has further decline in Renal function. 01/27: Cr 1.8, eGFR 39 on morning labs 01/28: unchanged from prior day (5) Hypertension: Qualifiers: Hypertension type: unspecified Qualified Code(s): I10 - Essential (primary) hypertension Code(s): I10 - Essential (primary) hypertension Status: Chronic Assessment and Plan: * Continue meds of Amlodipine 5 mg Q PM, Carvedilol 25 mg po BID, and Ramipril 10 mg po daily * Pt's BP's have been running intermittently high while he has been here. His SBP's have ranged from 170s-230s and DBP's have ranged 60s-80s. * PRN Hydralazine is ordered at this time with parameters to give for SBP of > or equal to 170 and DBP of > or equal to 90. * Continue to monitor vital signs and adjust medications appropriately. * Heart healthy diet. Blood pressures reviewed 01/28. Blood pressures remain elevated and respond to p.r.n. and scheduled medications. (6) Paroxysmal atrial fibrillation: Code(s): I48.0 - Paroxysmal atrial fibrillation Status: Chronic Assessment and Plan: * Continue Carvedilol for rate control * Pt. on Lovenox for VTE prophylaxis. Plan plan to continue diuresis today and tomorrow morning and discharge afternoon of 01/29 Time Spent With Patient Time with patient: 25 - 35 minutes Subjective Date/time seen: 01/28/23 11:40 Interval history: 01/26: This pt was
--- NOTE | 2023-01-28 11:40 | PM.IMPN ---
Progress Note: A&P Assessment and Plan (1) Acute on chronic congestive heart failure: Qualifiers: Heart failure type: combined systolic and diastolic Qualified Code(s): I50.43 - Acute on chronic combined systolic (congestive) and diastolic (congestive) heart failure Code(s): I50.9 - Heart failure, unspecified Status: Acute Assessment and Plan: Daily weight Accurate I&O Last ECHO 09/2022 shows a preserved LVSF with EF of 55-60% and moderate LVH with asymmetric septal hypertrophy. Continue Lasix 20 mg BID Daily labs to monitor renal function and to ensure electrolyte stability. Pt will need to be instructed to NOT continue OTC Diuretic of Diurex on discharge. Continue fluid restriction as ordered. Supplemental oxygen as needed. (2) Edema: Qualifiers: Edema type: unspecified Qualified Code(s): R60.9 - Edema, unspecified Code(s): R60.9 - Edema, unspecified Status: Acute Assessment and Plan: Noted to the BLE with L>R. Awaiting venous dopplers of the LUE and the LLE. Elevate legs in bed for edema Suspect combination of venous insufficiency and fluid overload vs. DVT. 01/27: US negative for DVT left lower extremity and left upper extremity (3) Insulin dependent type 2 diabetes mellitus: Code(s): E11.9 - Type 2 diabetes mellitus without complications; Z79.4 - senior care (current) use of insulin Status: Chronic Assessment and Plan: Continue Glucose checks AC and HS and prn Continue SSI Continue hypoglycemia protocol Continue heart healthy diet (4) Chronic kidney disease, stage 3: Qualifiers: Chronic kidney disease stage 3 subtype: stage 3b (GFR 30-44) Qualified Code(s): N18.32 - Chronic kidney disease, stage 3b Code(s): N18.30 - Chronic kidney disease, stage 3 unspecified Status: Chronic Assessment and Plan: GFR is 34. Cr/BUN at baseline at 2.0/24 Avoid addition of renal offending agents and adjust Lasix for diuresis as needed. May continue current Ramipril in the setting of no further acute decline in Renal function. Consider changing if pt has further decline in Renal function. 01/27: Cr 1.8, eGFR 39 on morning labs 01/28: unchanged from prior day (5) Hypertension: Qualifiers: Hypertension type: unspecified Qualified Code(s): I10 - Essential (primary) hypertension Code(s): I10 - Essential (primary) hypertension Status: Chronic Assessment and Plan: Continue meds of Amlodipine 5 mg Q PM, Carvedilol 25 mg po BID, and Ramipril 10 mg po daily Pt's BP's have been running intermittently high while he has been here. His SBP's have ranged from 170s-230s and DBP's have ranged 60s-80s. PRN Hydralazine is ordered at this time with parameters to give for SBP of > or equal to 170 and DBP of > or equal to 90. Continue to monitor vital signs and adjust medications appropriately. Heart healthy diet. Blood pressures reviewed 01/28. Blood pressures remain elevated and respond to p.r.n. and scheduled medications. (6) Paroxysmal atrial fibrillation: Code(s): I48.0 - Paroxysmal atrial fibrillation Status: Chronic Assessment and Plan: Continue Carvedilol for rate control Pt. on Lovenox for VTE prophylaxis. Plan plan to continue diuresis today and tomorrow morning and discharge afternoon of 01/29 Time Spent With Patient Time with patient: 25 - 35 minutes Subjective Date/time seen: 01/28/23 11:40 Interval history: 01/26: This pt was examined at the bedside in interval assessment after being admitted to the hospital for CHF exacerbation. His home diuretics were recently discontinued after his renal function declined. Pt is not currently requiring supplemental oxygen. He is maintaining sats on Room air. 01/27: Patient reports improvement in swelling and resolution of dyspnea. Zuniga catheter in place due to need for significant diuresis and accurate I&O.
[2023-01-28 12:22] LABS: Glucose Point of Care 174 mg/dl (65-105)
--- NOTE | 2023-01-28 14:39 | PCNFU ---
Nutrition Follow-Up Complete: Goal: Pt current nutrition is . Nutrition recommendation: Last recorded weight is 89.9 kg. Bowel Motility: Labs Reviewed: Meds Noted: Skin: Additional Notes:
--- NOTE | 2023-01-28 14:39 | PCDIET ---
Nutrition note: No nutrition needs on follow up. Intakes 90-100%. Continue to monitor for length of stay or consult for additional needs.
[2023-01-28 17:05] LABS: Glucose Point of Care 200 mg/dl (65-105)
[2023-01-28] MEDS: amLODIPine BESYLATE 5 MG TABLET PO (18:15)
[2023-01-28] MEDS: MELATONIN 3 MG TABLET PO (20:36)
[2023-01-28] MEDS: ATORVASTATIN 40 MG TABLET 80 MG PO (20:36)
[2023-01-28 23:14] LABS: Glucose Point of Care 174 mg/dl (65-105)
[2023-01-29 06:00] VITALS: BP 159/69; PULSE 61; RESP 16; TEMP 36.7; O2SAT 94
[2023-01-29 08:08] LABS: Hematocrit 36.2 % (42.0-52.0); Hemoglobin 11.8 g/dL (14.0-18.0); Mean Corpuscular HGB Conc 32.6 g/dl (32-36); Mean Corpuscular Hemoglobin 29.2 pg (26-34); Mean Corpuscular Volume 89.6 fl (80-100); Mean Platelet Volume 10.9 fl (7.4-10.4); Platelet Count Result 216 k/mm3 (150-375); Red Blood Count 4.04 M/mm3 (4.6-6.20); Red Cell Distribution Width 13.1 % (11.5-14.5); White Blood Count 8.1 K/mm3 (4.5-10.0)
[2023-01-29 08:18] LABS: Albumin Level 3.2 g/dL (3.5-5.1); Anion Gap 8 mmol/L (8-16); Blood Urea Nitrogen 28 mg/dL (9-20); Calcium 8.8 mg/dL (8.4-10.2); Carbon Dioxide 31 mmol/L (22-30); Chloride 100 mmol/L (98-107); Estimated CRCL calculation 41 ml/min; Estimated Glomerular Filt Rate 39; Glucose 141 mg/dL (65-110); Magnesium 1.6 mg/dL (1.6-2.3); Phosphorus 4.1 mg/dL (2.5-4.5); Potassium 4.4 mmol/L (3.4-5.0); Sodium 139 mmol/L (137-145)
[2023-01-29 08:47] LABS: Glucose Point of Care 136 mg/dl (65-105)
[2023-01-29 10:15] VITALS: BP 203/69; PULSE 62
[2023-01-29 10:16] VITALS: PULSE 62
[2023-01-29] MEDS: ENOXAPARIN 40 MG/0.4 ML SYRINGE SUB-Q (10:16)
[2023-01-29] MEDS: GABAPENTIN 100 MG CAPSULE PO ×2 (10:16→12:22)
[2023-01-29] MEDS: carvediloL 12.5 MG TABLET 25 MG PO (10:16)
[2023-01-29] MEDS: glipiZIDE 5 MG TABLET 10 MG PO (10:16)
[2023-01-29] MEDS: FUROSEMIDE INJ 40 MG/4 ML VIAL 20 MG IV PUSH (10:16)
[2023-01-29] MEDS: PANTOPRAZOLE 40 MG TABLET PO (10:17)
[2023-01-29] MEDS: ramipriL 5 MG CAPSULE 10 MG PO (10:17)
[2023-01-29] MEDS: PARoxetine 20 MG TABLET 40 MG PO (10:17)
[2023-01-29] MEDS: OMEGA 3 POLYUNSAT FATTY ACIDS 1 GM CAP PO (10:17)
[2023-01-29 12:16] LABS: Glucose Point of Care 183 mg/dl (65-105)
--- NOTE | 2023-01-29 13:19 | PM.DS ---
DS: Admitting Diagnosis Discharge Date 01/29/2023 Admitting Diagnosis acute on chronic congestive heart failure, paroxysmal atrial fibrillation, insulin-dependent type 2 diabetes mellitus, chronic kidney disease stage 3 DS: Discharge Diagnosis Discharge Diagnosis (1) Acute on chronic congestive heart failure: Qualifiers: Heart failure type: combined systolic and diastolic Qualified Code(s): I50.43 - Acute on chronic combined systolic (congestive) and diastolic (congestive) heart failure Code(s): I50.9 - Heart failure, unspecified Status: Acute Assessment and Plan: acute on chronic congestive heart failure with preserved ejection fraction (2) Edema: Qualifiers: Edema type: unspecified Qualified Code(s): R60.9 - Edema, unspecified Code(s): R60.9 - Edema, unspecified Status: Acute (3) Insulin dependent type 2 diabetes mellitus: Code(s): E11.9 - Type 2 diabetes mellitus without complications; Z79.4 - pruner (current) use of insulin Status: Chronic (4) Chronic kidney disease, stage 3: Qualifiers: Chronic kidney disease stage 3 subtype: stage 3b (GFR 30-44) Qualified Code(s): N18.32 - Chronic kidney disease, stage 3b Code(s): N18.30 - Chronic kidney disease, stage 3 unspecified Status: Chronic (5) Hypertension: Qualifiers: Hypertension type: unspecified Qualified Code(s): I10 - Essential (primary) hypertension Code(s): I10 - Essential (primary) hypertension Status: Chronic (6) Paroxysmal atrial fibrillation: Code(s): I48.0 - Paroxysmal atrial fibrillation Status: Chronic DS: Summary Hospital Course Reason for hospitalization: patient was admitted for fluid overload peripheral edema and CHF exacerbation. Hospital Course: 01/25: This is a 62-year-old male with history of strokes, vascular dementia, coronary artery disease status post 3 vessel coronary artery bypass in 2001, heart failure with preserved ejection fraction, peripheral arterial disease, hypertension, chronic kidney disease, and insulin-dependent type 2 diabetes mellitus who presented to the emergency department for evaluation of shortness of breath. The patient provides the following history. He reports increasing shortness of breath with lesser and exertion as well as an increase in swelling and weight gain over the past couple of weeks. His swelling is much worse on the left side which is not necessarily unusual for him. He is no longer on diuretics due to fluctuations in his renal function however has been taking [id number] diuretics for his symptoms without much benefit. He states compliance with his medications and he denies recent change in medications though he was prescribed amoxicillin at the beginning of the month for congestion. He denies fever, chills, sweats, chest pain, pleuritic pain, palpitations, sensations of racing heart, nausea, vomiting, difficulties urinating, and calf pain. He denies sick contacts and history of venous thromboembolism. Since arrival to the ED, his blood pressures have been running anywhere between the 180s to low 200s systolic. Preliminary workup is consistent with CHF exacerbation and he was given furosemide 40 mg IV x1. He is being admitted in this setting for further treatment. 01/26:? This pt was examined at the bedside in interval assessment after being admitted to the hospital for CHF exacerbation. His home diuretics were recently discontinued after his renal function declined. Pt is not currently requiring supplemental oxygen. He is maintaining sats on Room air. 01/27:? Patient reports improvement in swelling and resolution of dyspnea.? Zuniga catheter in place due to need for significant diuresis and accurate I&O.? Patient's states that he still has quite a bit of fluid retention.? Plan is to check morning labs and assess renal response to continued diuresis.? Zuniga to remain in place until t
[2023-01-29 13:58] VITALS: BP 127/92; PULSE 58; RESP 16; TEMP 36.6; O2SAT 96
== END 2023-01-29 16:45 | disposition home or self-care (01) | DRG 291 ==
LOC: ANHED 10:06 → ANH3MEDSUR 11:15 → ANH3MED 15:46
PROVIDERS: Nurse Practitioner Adult Health; Physician Assistant; Admitting Provider Internal Medicine; Emergency Provider Emergency Medicine; PCP Internal Medicine; Visit Provider Nurse Practitioner
DX: I13.0 Hypertensive heart and chronic kidney disease with heart failure and stage 1 through stage 4 chronic kidney disease, or unspecified chronic kidney disease (principal); I50.33 Acute on chronic diastolic (congestive) heart failure; I69.354 Hemiplegia and hemiparesis following cerebral infarction affecting left non-dominant side; I48.0 Paroxysmal atrial fibrillation; I25.10 Atherosclerotic heart disease of native coronary artery without angina pectoris; N18.30 Chronic kidney disease, stage 3 unspecified; E11.22 Type 2 diabetes mellitus with diabetic chronic kidney disease; E11.42 Type 2 diabetes mellitus with diabetic polyneuropathy; E11.51 Type 2 diabetes mellitus with diabetic peripheral angiopathy without gangrene; K21.9 Gastro-esophageal reflux disease without esophagitis; F01.50 Vascular dementia, unspecified severity, without behavioral disturbance, psychotic disturbance, mood disturbance, and anxiety; F31.9 Bipolar disorder, unspecified; I25.2 Old myocardial infarction; Z95.5 Presence of coronary angioplasty implant and graft; Z95.1 Presence of aortocoronary bypass graft; Z91.81 History of falling; Z95.820 Peripheral vascular angioplasty status with implants and grafts
CPT/HCPCS: 36415; 71046; 80048; 80053; 80069; 82550; 82948; 83036; 83735; 83880; 84132; 84443; 84484; 85025; 85027; 85610; 85730; 93005; 93971; 96365; 96375; 96376; 99285; A9270; G0378; J0360; J1650; J1815; J1940; J3475

== ENCOUNTER 2023-03-24 13:24 | Inpatient (IN) | payer MEDICARE, SELFPAY ==
[2023-03-24] VITALS (17 sets, daily range): BP systolic 150–189; BP diastolic 60–82; PULSE 65–74; RESP 18–32; TEMP 36.5–37; O2SAT 90–96; BMI 31.1
--- NOTE | ~2023-03-24 | XR_ITS ---
EXAMINATION: XR chest 1V portable INDICATION: Cough TECHNIQUE: Portable AP chest at 1508 hours COMPARISON: 01/25/2023 FINDINGS: Cardiomegaly is noted. The lungs are free of acute opacities. No pleural effusion or pneumo thorax. Median sternotomy wires and mediastinal surgical clips are seen, likely from prior coronary a rtery bypass grafting. IMPRESSION: 1. Cardiomegaly. Reviewed, dictated and finalized at location [facility] IMPRESSION: 1. Cardiomegaly.
--- NOTE | 2023-03-24 13:33 | ECG_ITS ---
Measurements Intervals [place] Rate: 71 P: 62 [place]: 197 QRS: -16 QRSD: 147 T: 1 QT: 448 QTc: 488 Interpretive Statements SINUS RHYTHM RIGHT BUNDLE BRANCH BLOCK BASELINE ARTIFACT- I, II, III, AVR, AVL, AVF, V1-V6 ABNORMAL ECG COMPARED TO ECG 01/25/2023 08:18:35 SINUS RHYTHM NOW PRESENT Electronically Signed On 03-24-2023 16:13:09 CHEMISTRY TECHNOLOGIST by Silas Souza D.O.
[2023-03-24 13:43] LABS: Basophils Absolute Auto 0.1 K/mm3 (0.0-0.1); Basophils Percent Auto 0.7 % (0.2-1.2); Eosinophils Percent Auto 0.1 % (0-4.4); Hemoglobin 12.2 g/dL (14.0-18.0); Immature Granulocyte Percent A 0.7 % (0-0.5); Lymphocytes Absolute Auto 0.76 K/mm3 (0.9-3.2); Lymphocytes Percent Auto 5.2 % (18.3-44.2); Mean Corpuscular HGB Conc 32.1 g/dl (32-36); Mean Corpuscular Hemoglobin 28.6 pg (26-34); Mean Platelet Volume 10.5 fl (7.4-10.4); Monocytes Absolute Auto 0.8 K/mm3 (0.1-0.6); Monocytes Percent Auto 5.7 % (2.6-8.5); Neutrophils Absolute Auto 12.9 K/mm3 (1.3-6.7); Neutrophils Percent Auto 87.6 % (45.5-73.1); Platelet Count Result 222 k/mm3 (150-375); Red Blood Count 4.27 M/mm3 (4.6-6.20); Red Cell Distribution Width 12.5 % (11.5-14.5); White Blood Count 14.7 K/mm3 (4.5-10.0)
[2023-03-24 13:55] LABS: Alanine Aminotransferase 18 U/L (6-50); Albumin Level 3.3 g/dL (3.5-5.1); Alkaline Phosphatase 111 U/L (38-126); Anion Gap 8 mmol/L (8-16); Aspartate Amino Transferase 22 U/L (17-59); Bilirubin,Total 0.7 mg/dL (0.2-1.3); Blood Urea Nitrogen 37 mg/dL (9-20); Calcium 8.3 mg/dL (8.4-10.2); Carbon Dioxide 26 mmol/L (22-30); Chloride 102 mmol/L (98-107); Estimated CRCL calculation 32 ml/min; Estimated Glomerular Filt Rate 29; Glucose 259 mg/dL (65-110); Potassium 4.2 mmol/L (3.4-5.0); Sodium 136 mmol/L (137-145)
--- NOTE | 2023-03-24 14:35 | ED.WEAKNESS ---
HPI - Weakness General Chief complaint: Weakness Stated complaint: covid-like sx, weakness x 1 week Time Seen by Provider: 03/24/23 14:35 Source: patient and EMS Mode of arrival: EMS Limitations: no limitations History of Present Illness HPI Narrative: 62 YEARS OLD WHITE MALE CAME FROM HOME BY AMBULANCE COMPLAINING OF NASAL, POSTNASAL, HEAD CONGESTION FOR OVER 1 WEEK. WITH GENERAL WEAKNESS. PATIENT BLEED THAT HE HAVE COVID. HE DENIES COVID CONTACT. IN Related Data Home Medications Medication Instructions Recorded Confirmed omeprazole 20 mg capsule,delayed 20 mg PO DAILY 03/04/19 01/25/23 release paroxetine HCl 20 mg tablet 40 mg PO DAILY 03/04/19 01/25/23 ramipril 10 mg capsule 10 mg PO DAILY 03/04/19 01/25/23 glipizide 5 mg tablet 10 mg PO BID 09/14/22 01/25/23 Fish Oil 1 cap PO DAILY 01/25/23 01/25/23 Mucinex 1 tab-cap PO DAILY 01/25/23 01/25/23 amlodipine 5 mg tablet (Norvasc) 5 mg PO QPM 01/25/23 01/25/23 Allergies Allergy/AdvReac Type Severity Reaction Status Date / Time No Known Allergies Allergy Verified 01/25/23 13:36 Review of Systems Review of Systems: All systems reviewed & are unremarkable except as noted in HPI and below PMFSH Past Medical History Medical History Bipolar disease, chronic Cerebrovascular accident Multiple strokes with residual left-sided weakness. Chronic kidney disease, stage 3 Coronary artery disease Diabetic peripheral neuropathy Gastroesophageal reflux disease Heart failure with preserved ejection fraction Hypertension Insulin dependent type 2 diabetes mellitus Myocardial infarction Paroxysmal atrial fibrillation Peripheral artery disease Vascular dementia Surgical History Surgical History History of cardiac catheterization History of coronary artery bypass graft x 3 (11/2001) History of coronary artery stent placement (2017) History of vascular surgery (2012) Bilateral lower extremity stents two stents. Family History Family History Mother Acute myocardial infarction Cerebrovascular accident Diabetes mellitus Hypertension Sibling Acute myocardial infarction AIDS Sibling AIDS Social History Social History Social History: Surrogate medical decision maker: Maite Rendon, spouse. Code status: Smoking status: Never smoker Second hand tobacco smoke exposure: Yes Alcohol intake: never Substance use: never Substance use type: does not use Lack of Transportation: No Lack of Food: Never True Current Housing: I Have Housing Concerned About Future Housing: No Difficulty Paying Gas/Electric Bills: No Difficulty Paying for Meds: No Currently Unemployed: No Education: High School Diploma/GED Difficulty w/ Childcare or Family Care: No Additional living arrangements comments: Lives with spouse. Spiritual care concerns: No Agree to blood products: Yes Exam Narrative: GENERAL APPEARANCE: WELL-DEVELOPED, WELL-NOURISHED, ILL LOOKING SKIN: NORMAL COLOR HEAD: NORMOCEPHALIC, NONTRAUMATIC EYES: CLEAR CONJUNCTIVA ENT: OROPHARYNX NORMAL, EARS NORMAL, NOSE NORMAL NECK: SUPPLE, NONTENDER CHEST AND RESPIRATORY: AIRWAY PATENT, NO RESPIRATORY DISTRESS, NO ACCESSORY MUSCLE USE, FEW BASAL RALES BILATERALLY HEART: REGULAR RATE/RHYTHM ABDOMEN: SOFT, NONTENDER, NO ORGANOMEGALY, QUIET BOWEL SOUNDS VASCULAR: NORMAL PERIPHERAL PULSES, NORMAL CAPILLARY REFILL. MUSCULOSKELETAL: NORMAL RANGE OF MOTION, NONTENDER BACK NEUROLOGIC: ALERT AND ORIENTED ?3, BUS AND TROLLEY DISPATCHER IS NORMAL TESTED, NO GROSS MOTOR DEFICIT
[2023-03-24 14:40] LABS: Influenza A QL RT-PCR Positive (Negative); Influenza B QL RT-PCR Negative (Negative); RSV RNA, RT-PCR Negative (Negative); SARS-CoV-2 RNA PCR Negative (Negative)
[2023-03-24 15:10] LABS: CRP 6.6 mg/dL (<1.0)
[2023-03-24 15:11] LABS: Alveolar/Arterial O2 Gradient 39.8 mmHg; Base Excess ABG 0.8 mEq/l (+/-2.0); Fractional Inspired Oxygen 21 %; HCO3 ABG 25.5 mEq/l (22.0-26.0); Oxygen Content ABG 15.8 %vol (16.0-22.0); Oxygen Saturation ABG 91.8 % (95.0-100.0); Oxyhemoglobin 89.8 % THb (90.0-100.0); PCO2 ABG 40.7 mmHg (35.0-45.0); PO2 ABG 61.2 mmHg (80.0-100.0); PO2 FiO2 Ratio Arterial Blood 2.91 %; Total Hemoglobin 12.5 g/dL (12.0-18.0); pH ABG 7.414 (7.350-7.450)
[2023-03-24 15:13] LABS: Device ROOM AIR; Modified Allen's Test Pass; Site Drawn RIGHT RADIAL
[2023-03-24 15:17] LABS: NT Pro B Type Natriuretic Pept 8690 pg/mL (19.9-100)
[2023-03-24 15:32] LABS: INR 1.1; Partial Thromboplastin Time 30.9 SECONDS (22.3-36.8)
[2023-03-24] MEDS: FUROSEMIDE INJ 40 MG/4 ML VIAL IV PUSH ×2 (17:22→21:23)
--- NOTE | 2023-03-24 17:31 | PC.NURSE ---
pt incontinent of B&B, pressure ulcers noted to buttocks. Pt reports ulcers have been present for a couple months
--- NOTE | 2023-03-24 18:05 | PC.NURSE ---
patient arrived to room 253 by stretcher and tech. upon arrival patient alert and oriented and provided some history. patient stated he is safe at home, lives with and daughter who are his primary care givers. Patient presents with poor hygiene, dry skin. patient has a consult placed to wound nurse with pictures of sacrum wound which is red and open. part of patient left heel has been surgically removed. deep bruising on left foot heel and bruising on left foot, second toe knuckle also bruised. Patient was repositioned with pillows and education given to help with future care. patient unable to move left arm and left leg due to previous stroke per patient. Will continue to monitor
--- NOTE | 2023-03-24 20:04 | ADMGEN ---
This patient, Robert Rendon, was admitted to Medical Room 253-01. Patient/family oriented to hospital policies and general routines including ID bracelet, bed and alarms, visiting hours, pain management, procedures, bathroom and other care routines, personal items, smoking policy, room service/diet, and visiting hours. Information on how to activate the Rapid Response Team has been discussed. Patient/Family are encouraged to report perceived risks to care and to ask questions if they do not understand what they are told or what they should do. Patient admitted prior to shift at 1745
[2023-03-24] MEDS: ALBUTEROL SULFATE NEB 2.5 MG/3 ML INH INHALATION (20:10)
[2023-03-24 20:40] LABS: Glucose Point of Care 178 mg/dl (65-105)
--- NOTE | 2023-03-24 21:50 | PM.IMHP ---
H&P: HPI History of Present Illness Date/Time: 03/24/23 21:50 Chief Complaint: SOB Narrative: 62 y/o M presents here with SOB, cough, congestion, and weakness with PMH of CKD, bipolar, CVA with residual left-sided weakness, CAD, neuropathy, GERD, HF w/pEF, HTN, DM, WI, PAD, pAFib, and vascular dementia. Patient presented here from home with complaints of shortness of breath for the past week. This has been accompanied by cough, congestion, weakness, and N/V/D. Cough has been productive, nonbloody. Denies any current fevers. States the weakness has been generalized, nonfocal. No dysarthria or facial droop. No known sick contacts. At ED arrival patient was afebrile, non tachycardic, increased respiratory rate, with blood pressure of 182/65, 95% on room air. Workup revealed patient to be Flu A+. Labs revealed an elevated white count at 14.7, stable but chronic anemia with hemoglobin at 12.2, elevated creatinine superimposed on CKD, with slightly increased BNP from baseline. ABG showed low pO2 and O2 sat of 91.8% on RA. CXR showed no acute opacities, no effusions or pneumothorax, and cardiomegaly. Patient initially reported increased lower extremity swelling to the ED, upon further investigation patient reports that his left lower extremity has been more swollen over the past year but has had no real changes since his last admission. No new abdominal swelling. Reports he is currently feeling a little bit better. [facility] Past Medical History Medical History Bipolar disease, chronic Cerebrovascular accident Multiple strokes with residual left-sided weakness. Chronic kidney disease, stage 3 Coronary artery disease Diabetic peripheral neuropathy Gastroesophageal reflux disease Heart failure with preserved ejection fraction Hypertension Insulin dependent type 2 diabetes mellitus Myocardial infarction Paroxysmal atrial fibrillation Peripheral artery disease Vascular dementia Surgical History Surgical History History of cardiac catheterization History of coronary artery bypass graft x 3 (11/2001) History of coronary artery stent placement (2018) History of vascular surgery (2012) Bilateral lower extremity stents two stents. Family History Family History Mother Acute myocardial infarction Cerebrovascular accident Diabetes mellitus Hypertension Sibling Acute myocardial infarction AIDS Sibling AIDS Social History Social History Social History: Surrogate medical decision maker: Maite Rendon, spouse. Code status: Smoking status: Never smoker Second hand tobacco smoke exposure: Yes Alcohol intake: former Substance use: never Substance use type: does not use Do You Feel Safe in your Home?: Yes Lack of Transportation: YES Lack of Food: Sometimes True Current Housing: I Have Housing Concerned About Future Housing: No Difficulty Paying Gas/Electric Bills: YES Difficulty Paying for Meds: YES Currently Unemployed: No Education: High School Diploma/GED Difficulty w/ Childcare or Family Care: No Additional living arrangements comments: Lives with spouse. Spiritual care concerns: No Agree to blood products: Yes Meds Home Medications and Allergies Home Medications Medication Instructions Recorded Confirmed Type omeprazole 20 mg capsule,delayed 20 mg PO DAILY 03/04/19 03/24/23 History release paroxetine HCl 20 mg tablet 40 mg PO DAILY 03/04/19 03/24/23 History ramipril 10 mg capsule 10 mg PO DAILY 03/04/19 03/24/23 History atorvastatin 80 mg tablet 80 mg PO HS 30 days #30 tabs 07/10/21 03/24/23 Rx carvedilol 12.5 mg tablet (Coreg) 25 mg PO BIDWM 30 days #120 tabs 07/10/21 03/24/23 Rx gabapentin 100 mg capsule 100 mg PO TID #90 caps 07/10/21 03/24/23 R
[2023-03-24 23:53] LABS: Appearance Urine Cloudy (Clear); Bacteria Urine None Seen /hpf; Bilirubin Urine Negative (Negative); Blood Urine 1+ (Negative); Color Urine Yellow (Yellow); Glucose Urine UA 1+ mg/dL (Negative); Ketones Urine Negative (Negative); Leukocyte Esterase Ur Negative LEU/UL (Negative); Need Manual Microscopic Reviewed; Nitrate Urine Negative (Negative); Protein Urine 3+ mg/dL (Negative); RBC Urine 0-2 /hpf (0-2); Specific Grav Ur 1.015 (1.001-1.035); Squamous Epithelial Cell Urine None seen /hpf (Few); Urobilinogen Urine 0.2 mg/dL (<2.0); WBC Urine 0-5 /hpf; pH Urine 5.5 (5.0-9.0)
[2023-03-24 23:55] LABS: Add Urine Microscopic? YES
[2023-03-25] VITALS (24 sets, daily range): BP systolic 117–204; BP diastolic 46–90; PULSE 53–80; RESP 16–20; TEMP 36.2–39.1; O2SAT 91–95; BMI 31.1
[2023-03-25] MEDS: ALBUMIN HUMAN 25% 12.5 GM/50ML 50 ML IVPB (02:20)
[2023-03-25] MEDS: LACTATED RINGERS 500 ML 100 ML IV CONT (03:40)
[2023-03-25] MEDS: ACETAMINOPHEN 325 MG TABLET 650 MG PO (04:00)
[2023-03-25] MEDS: ALBUTEROL SULFATE NEB 2.5 MG/3 ML INH INHALATION ×5 (04:45→20:55)
[2023-03-25 06:19] LABS: Basophils Absolute Auto 0.1 K/mm3 (0.0-0.1); Basophils Percent Auto 0.6 % (0.2-1.2); Eosinophils Percent Auto 0.3 % (0-4.4); Hematocrit 34.8 % (42.0-52.0); Hemoglobin 11.5 g/dL (14.0-18.0); Immature Granulocyte Absolute 0.05 K/mm3 (0.00-0.031); Immature Granulocyte Percent A 0.5 % (0-0.5); Lymphocytes Absolute Auto 0.99 K/mm3 (0.9-3.2); Lymphocytes Percent Auto 9.8 % (18.3-44.2); Mean Corpuscular Volume 87.7 fl (80-100); Mean Platelet Volume 10.4 fl (7.4-10.4); Monocytes Absolute Auto 0.8 K/mm3 (0.1-0.6); Monocytes Percent Auto 8.2 % (2.6-8.5); Neutrophils Absolute Auto 8.2 K/mm3 (1.3-6.7); Neutrophils Percent Auto 80.6 % (45.5-73.1); Platelet Count Result 186 k/mm3 (150-375); Red Blood Count 3.97 M/mm3 (4.6-6.20); Red Cell Distribution Width 12.2 % (11.5-14.5); White Blood Count 10.1 K/mm3 (4.5-10.0)
[2023-03-25 06:47] LABS: Anion Gap 12 mmol/L (8-16); Blood Urea Nitrogen 41 mg/dL (9-20); Calcium 8.3 mg/dL (8.4-10.2); Carbon Dioxide 22 mmol/L (22-30); Chloride 100 mmol/L (98-107); Estimated CRCL calculation 29 ml/min; Estimated Glomerular Filt Rate 26; Glucose 171 mg/dL (65-110); Potassium 3.6 mmol/L (3.4-5.0); Sodium 134 mmol/L (137-145)
[2023-03-25] MEDS: OMEGA 3 POLYUNSAT FATTY ACIDS 1 GM CAP PO (08:27)
[2023-03-25] MEDS: PARoxetine 20 MG TABLET 40 MG PO (08:27)
[2023-03-25] MEDS: guaiFENesin 12 HR 600 MG TABCR PO (08:27)
[2023-03-25] MEDS: GABAPENTIN 100 MG CAPSULE PO ×3 (08:27→17:16)
[2023-03-25] MEDS: FUROSEMIDE 40 MG TABLET PO (08:27)
[2023-03-25 08:28] LABS: Glucose Point of Care 155 mg/dl (65-105)
[2023-03-25] MEDS: ramipriL 5 MG CAPSULE 10 MG PO (08:28)
[2023-03-25] MEDS: PANTOPRAZOLE 40 MG TABLET PO (08:28)
[2023-03-25] MEDS: carvediloL 25 MG TABLET PO ×2 (08:28→22:10)
[2023-03-25] MEDS: glipiZIDE 5 MG TABLET 10 MG PO (08:29)
[2023-03-25] MEDS: ENOXAPARIN 30 MG/0.3 ML SYRINGE SUB-Q (08:29)
--- NOTE | 2023-03-25 11:39 | PC.NURSE ---
Dr Camacho on floor and notified that patients lung sounds are wheezes and coarse. Sob with any activity
[2023-03-25 11:49] LABS: Glucose Point of Care 232 mg/dl (65-105)
[2023-03-25] MEDS: IPRATROPIUM BR 0.02% INH SOLN 0.5 MG/2.5 ML VIAL INHALATION ×3 (11:50→20:55)
--- NOTE | 2023-03-25 11:56 | PM.IMPN ---
Progress Note: A&P Assessment and Plan (1) Acute hypoxemic respiratory failure: Code(s): J96.01 - Acute respiratory failure with hypoxia Status: Acute (2) FARHAN (acute kidney injury): Code(s): N17.9 - Acute kidney failure, unspecified Status: Acute (3) Influenza A: Code(s): J10.1 - Influenza due to other identified influenza virus with other respiratory manifestations Status: Acute (4) Chronic kidney disease, stage 3: Qualifiers: Chronic kidney disease stage 3 subtype: stage 3b (GFR 30-44) Qualified Code(s): N18.32 - Chronic kidney disease, stage 3b Code(s): N18.30 - Chronic kidney disease, stage 3 unspecified Status: Chronic Plan 62 y/o M presents here with SOB, cough, congestion, and weakness with PMH of CKD, bipolar, CVA with residual left-sided weakness, CAD, neuropathy, GERD, HF w/pEF, HTN, DM, [place], PAD, pAFib, and vascular dementia. Tested positive for flu A.?CXR showed no acute opacities, no effusions or pneumothorax, and cardiomegaly.? 1. Acute hypoxic respiratory failure: Secondary to influenza a No evidence of consolidation on chest x-ray for superimposed bacterial pneumonia Continue with O2 support Continue with albuterol, add Atrovent Will start on Solu-Medrol Hold off any IV antibiotics Out of window for Tamiflu Continue with guainfensin 2. FARHAN on CKD stage 3: Will hold Lasix for today Avoid nephrotoxins Recheck BMP in a.m. Hold ramipril 3. Diabetes mellitus: Blood glucose checked t.i.d. a.c. and HS Hold glipizide Continue with sliding scale insulin At 3 units of mealtime insulin, anticipate hyperglycemia with steroid 4. Hypertension: Continue with Norvasc, hold ramipril as mentioned above 5. DVT prophylaxis: Lovenox 6. Code status: Full 7. Disposition: Pending improvement Time Spent With Patient Time with patient: 15 - 25 minutes Subjective Date/time seen: 03/25/23 11:56 Interval history: Overnight hypoxia, currently on 2 L of O2 support Patient feels better though Review of Systems Review of Systems: All systems reviewed & are unremarkable except as noted in HPI and below Exam Const: General: comfortable and no acute distress HENMT: Mouth: Yes moist mucous membranes Eyes: Sclera: sclerae normal Pupils: Equal, round and reactive pupils present Resp: Other: Diffuse crackles throughout, occasional wheezing+cough. Cardio: Rate: regular rate Rhythm: regular rhythm Other: S1-S2 present without murmur, rub, ectopy GI: GI Palp: Yes Soft to palpation Other: Normoactive bowel sounds in all quadrants. Skin: General skin exam: normal color and no rashes or lesions noted Other: Full-thickness wound to coccyx. Neuro: Other: A/Ox4, generalized weakness. Extrem: General: normal to inspection Other: No peripheral edema, no wounds. Psych: Mental Status: mental status grossly normal Other: Flattened affect. Objective Data Vital Signs Vital Signs: Vital Signs - 24 hr 03/24/23 13:28 03/24/23 13:35 03/24/23 13:50 Temperature 97.9 F Pulse Rate 73 71 71 Respiratory Rate 20 30 H 32 H Blood Pressure 181/82 H Pulse Oximetry 92 93 91 Oxygen Delivery Room Air Oxygen Flow Rate 03/24/23 14:00 03/24/23 14:32 03/24/23 15:02 Temperature 97.8 F 97.8 F Pulse Rate 70 70 68 Respiratory Rate 24 H 30 H 26 H Blood Pressure 187/69 H 176/68 H Pulse Oximetry 93 95 92 Oxygen Delivery Oxygen Flow Rate 03/24/23 15:17 03/24/23 15:32 03/24/23 16:02 Temperature 97.8 F 97.7 F Pulse Rate 68 68 65 Respiratory Rate 24 H 22 H 20 Blood Pressure 183/66 H 173/68 H 182/65 H Pulse Oximetry 96 96 95 Oxygen Delivery Oxygen Flow Rate 03/24/23 16:46 03/24/23 17:01 03/24/23 20:12 Temperature 97.7 F Pulse Rate 69 70 70 Respiratory Rate 26 H 20 19 Blood Pressure 189/70 H 187/70 H Pulse Oximetry 93 96 Oxygen Delivery Oxygen Flow Rate 03/24
[2023-03-25] MEDS: methylPREDNISolone SOD SUCC 40 MG VIAL IV PUSH ×2 (12:07→22:11)
[2023-03-25] MEDS: INSULIN ASPART (*BKC) 100 UNITS/ML SUB-Q ×5 (12:07→22:07)
[2023-03-25 17:04] LABS: Glucose Point of Care 218 mg/dl (65-105)
[2023-03-25] MEDS: amLODIPine BESYLATE 5 MG TABLET PO (17:45)
[2023-03-25 20:27] LABS: Glucose Point of Care 294 mg/dl (65-105)
[2023-03-25] MEDS: ATORVASTATIN 40 MG TABLET 80 MG PO (22:10)
[2023-03-25] MEDS: MELATONIN 3 MG TABLET PO (22:11)
[2023-03-26] VITALS (22 sets, daily range): BP systolic 146–178; BP diastolic 55–78; PULSE 51–68; RESP 14–20; TEMP 36–36.6; O2SAT 93–97
[2023-03-26] MEDS: ALBUTEROL SULFATE NEB 2.5 MG/3 ML INH INHALATION ×5 (04:03→20:09)
[2023-03-26] MEDS: IPRATROPIUM BR 0.02% INH SOLN 0.5 MG/2.5 ML VIAL INHALATION ×5 (04:03→20:09)
[2023-03-26] MEDS: methylPREDNISolone SOD SUCC 40 MG VIAL IV PUSH ×3 (05:54→20:35)
[2023-03-26 06:04] LABS: Basophils Percent Auto 0.2 % (0.2-1.2); Hematocrit 35.9 % (42.0-52.0); Hemoglobin 11.4 g/dL (14.0-18.0); Immature Granulocyte Absolute 0.05 K/mm3 (0.00-0.031); Immature Granulocyte Percent A 0.3 % (0-0.5); Lymphocytes Absolute Auto 1.15 K/mm3 (0.9-3.2); Lymphocytes Percent Auto 7.3 % (18.3-44.2); Mean Corpuscular HGB Conc 31.8 g/dl (32-36); Mean Corpuscular Hemoglobin 28.5 pg (26-34); Mean Corpuscular Volume 89.8 fl (80-100); Mean Platelet Volume 11.1 fl (7.4-10.4); Monocytes Absolute Auto 0.3 K/mm3 (0.1-0.6); Monocytes Percent Auto 2.2 % (2.6-8.5); Neutrophils Absolute Auto 14.2 K/mm3 (1.3-6.7); Platelet Count Result 179 k/mm3 (150-375); Red Cell Distribution Width 12.3 % (11.5-14.5); White Blood Count 15.7 K/mm3 (4.5-10.0)
[2023-03-26 06:20] LABS: Anion Gap 7 mmol/L (8-16); Blood Urea Nitrogen 57 mg/dL (9-20); Calcium 8.1 mg/dL (8.4-10.2); Carbon Dioxide 24 mmol/L (22-30); Chloride 97 mmol/L (98-107); Estimated CRCL calculation 29 ml/min; Estimated Glomerular Filt Rate 26; Glucose 394 mg/dL (65-110); Potassium 4.2 mmol/L (3.4-5.0); Sodium 128 mmol/L (137-145)
--- NOTE | 2023-03-26 07:32 | P.PNIM_ITS ---
Progress Note: A&P Assessment and Plan (1) Acute hypoxemic respiratory failure: Code(s): J96.01 - Acute respiratory failure with hypoxia Status: Acute Assessment and Plan: * Secondary to influenza a, and most likely related to CHF exacerbation * No evidence of consolidation on chest x-ray for superimposed bacterial pneumonia * Continue with O2 support * Continue with albuterol, add Atrovent * Continue Solu-Medrol 40mg IV Q8H, titrate as indicated * Start Vancomycin, add cefepime if indicated * Out of window for Tamiflu * Continue with guaifenesin (2) FARHAN (acute kidney injury): Code(s): N17.9 - Acute kidney failure, unspecified Status: Acute Assessment and Plan: * BUN/Cr 57/2.50 * Baseline 1.8-2.0 * Hold ramipril for now * Could be related to fluid overload * BNP elevated at 8690 * Avoid nephrotoxins * Renal dose medications * Trend labs * Adjust therapy as indicated (3) Influenza A: Code(s): J10.1 - Influenza due to other identified influenza virus with other respiratory manifestations Status: Acute Assessment and Plan: * Positive Flu A on 03/24/23 * Outside window for tamiflu * Supplemental oxygen, wean to maintain saturations >90% * Isolation precautions * Trend respiratory status (4) Chronic kidney disease, stage 3: Qualifiers: Chronic kidney disease stage 3 subtype: stage 3b (GFR 30-44) Qualified Code(s): N18.32 - Chronic kidney disease, stage 3b Code(s): N18.30 - Chronic kidney disease, stage 3 unspecified Status: Chronic Assessment and Plan: * BUN/Cr 57/2.50 * Baseline 1.8-2.0 * Hold ramipril for now * Could be related to fluid overload * BNP elevated at 8690 * Avoid nephrotoxins * Renal dose medications * Trend labs * Adjust therapy as indicated (5) Insulin dependent type 2 diabetes mellitus: Code(s): E11.9 - Type 2 diabetes mellitus without complications; 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 Status: Chronic Assessment and Plan: * Glucose currently 394 * Most likely elevated related to steroids * Continue to trend labs * Accu cheks AC/HS * Trend glucose * Adjust therapy as indicated (6) Acute on chronic congestive heart failure: Qualifiers: Heart failure type: combined systolic and diastolic Qualified Code(s): I50.43 - Acute on chronic combined systolic (congestive) and diastolic (congestive) heart failure Code(s): I50.9 - Heart failure, unspecified Status: Acute Assessment and Plan: * HFpEF * Acute on chronic diastolic heart failure in acute exacerbation * BNP elevated at 8690 * Lasix on hold with worsening renal function * Echo from September 2022 showed EF of 60-65% with a grade 1 diastolic dysfunction * Trend urine output * Strict I&Os * Trend labs (7) Hypertension: Qualifiers: Hypertension type: unspecified Qualified Code(s): I10 - Essential (primary) hypertension Code(s): I10 - Essential (primary) hypertension Status: Chronic Assessment and Plan: * BP 146/57 * Continue home therapy * Trend BP * Adjust therapy as indicated Time Spent With Patient Time: 46 minutes Subjective Date/time seen: 03/26/23 07:32 Interval history:
--- NOTE | 2023-03-26 07:32 | PM.IMPN ---
Progress Note: A&P Assessment and Plan (1) Acute hypoxemic respiratory failure: Code(s): J96.01 - Acute respiratory failure with hypoxia Status: Acute Assessment and Plan: Secondary to influenza a, and most likely related to CHF exacerbation No evidence of consolidation on chest x-ray for superimposed bacterial pneumonia Continue with O2 support Continue with albuterol, add Atrovent Continue Solu-Medrol 40mg IV Q8H, titrate as indicated Start Vancomycin, add cefepime if indicated Out of window for Tamiflu Continue with guaifenesin (2) FARHAN (acute kidney injury): Code(s): N17.9 - Acute kidney failure, unspecified Status: Acute Assessment and Plan: BUN/Cr 57/2.50 Baseline 1.8-2.0 Hold ramipril for now Could be related to fluid overload BNP elevated at 8690 Avoid nephrotoxins Renal dose medications Trend labs Adjust therapy as indicated (3) Influenza A: Code(s): J10.1 - Influenza due to other identified influenza virus with other respiratory manifestations Status: Acute Assessment and Plan: Positive Flu A on 03/24/23 Outside window for tamiflu Supplemental oxygen, wean to maintain saturations >90% Isolation precautions Trend respiratory status (4) Chronic kidney disease, stage 3: Qualifiers: Chronic kidney disease stage 3 subtype: stage 3b (GFR 30-44) Qualified Code(s): N18.32 - Chronic kidney disease, stage 3b Code(s): N18.30 - Chronic kidney disease, stage 3 unspecified Status: Chronic Assessment and Plan: BUN/Cr 57/2.50 Baseline 1.8-2.0 Hold ramipril for now Could be related to fluid overload BNP elevated at 8690 Avoid nephrotoxins Renal dose medications Trend labs Adjust therapy as indicated (5) Insulin dependent type 2 diabetes mellitus: Code(s): E11.9 - Type 2 diabetes mellitus without complications; 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 Status: Chronic Assessment and Plan: Glucose currently 394 Most likely elevated related to steroids Continue to trend labs Accu cheks AC/HS Trend glucose Adjust therapy as indicated (6) Acute on chronic congestive heart failure: Qualifiers: Heart failure type: combined systolic and diastolic Qualified Code(s): I50.43 - Acute on chronic combined systolic (congestive) and diastolic (congestive) heart failure Code(s): I50.9 - Heart failure, unspecified Status: Acute Assessment and Plan: HFpEF Acute on chronic diastolic heart failure in acute exacerbation BNP elevated at 8690 Lasix on hold with worsening renal function Echo from September 2022 showed EF of 60-65% with a grade 1 diastolic dysfunction Trend urine output Strict I&Os Trend labs (7) Hypertension: Qualifiers: Hypertension type: unspecified Qualified Code(s): I10 - Essential (primary) hypertension Code(s): I10 - Essential (primary) hypertension Status: Chronic Assessment and Plan: BP 146/57 Continue home therapy Trend BP Adjust therapy as indicated Time Spent With Patient Time: 46 minutes Subjective Date/time seen: 03/26/23 07:32 Interval history: Patient is a 62 year old male with a past medical history of CKD, Bipolar, CVA, CAD, Neuropathy, GERD, HFpEF, HTN, DM, [place], PAD, pAFib, vascular dementia presented with shortness of breath for the past week. Today patient is lying in bed. Patient states that he has pain 5/10. He is still having some diarrhea. He denies any shortness a breath, nausea, vomiting, constipation, chills or sweats. He did state that he was having a bit of fever. Will continue current care at this time. Review of Systems Review of Systems: All systems reviewed & are unremarkable except as noted in HPI and below Exam Narrative: General: well-nourished, well-ap
[2023-03-26 08:36] LABS: Glucose Point of Care 364 mg/dl (65-105)
[2023-03-26] MEDS: INSULIN ASPART (*BKC) 100 UNITS/ML SUB-Q ×7 (08:46→20:32)
[2023-03-26] MEDS: ENOXAPARIN 40 MG/0.4 ML SYRINGE SUB-Q (08:46)
[2023-03-26] MEDS: VANCOMYCIN 1,250 MG/NS 250 ML 1,250 MG/250 ML BAG 166.67 MG IVPB (08:47)
[2023-03-26] MEDS: guaiFENesin 12 HR 600 MG TABCR PO (08:49)
[2023-03-26] MEDS: carvediloL 25 MG TABLET PO ×2 (08:49→20:28)
[2023-03-26] MEDS: OMEGA 3 POLYUNSAT FATTY ACIDS 1 GM CAP PO (08:49)
[2023-03-26] MEDS: PARoxetine 20 MG TABLET 40 MG PO (08:49)
[2023-03-26] MEDS: PANTOPRAZOLE 40 MG TABLET PO (08:49)
[2023-03-26] MEDS: GABAPENTIN 100 MG CAPSULE PO ×3 (08:49→17:36)
[2023-03-26 11:52] LABS: Glucose Point of Care 399 mg/dl (65-105)
[2023-03-26] MEDS: VANCOMYCIN 1,000 MG/NS 250 ML 1,000 MG/250 ML BAG 250 MG IVPB (12:22)
[2023-03-26 17:30] LABS: Glucose Point of Care 302 mg/dl (65-105)
[2023-03-26] MEDS: amLODIPine BESYLATE 5 MG TABLET PO (17:36)
[2023-03-26] MEDS: ATORVASTATIN 40 MG TABLET 80 MG PO (20:27)
[2023-03-26] MEDS: MELATONIN 3 MG TABLET PO (20:28)
[2023-03-27] VITALS (22 sets, daily range): BP systolic 150–162; BP diastolic 56–66; PULSE 54–68; RESP 16–20; TEMP 36–36.8; O2SAT 93–97
[2023-03-27] MEDS: IPRATROPIUM BR 0.02% INH SOLN 0.5 MG/2.5 ML VIAL INHALATION ×5 (00:19→20:42)
[2023-03-27] MEDS: ALBUTEROL SULFATE NEB 2.5 MG/3 ML INH INHALATION ×5 (00:19→20:42)
[2023-03-27 01:20] LABS: Glucose Point of Care 346 mg/dl (65-105)
[2023-03-27] MEDS: methylPREDNISolone SOD SUCC 40 MG VIAL IV PUSH (05:16)
[2023-03-27 06:04] LABS: Basophils Percent Auto 0.1 % (0.2-1.2); Hematocrit 33.5 % (42.0-52.0); Hemoglobin 10.9 g/dL (14.0-18.0); Immature Granulocyte Absolute 0.16 K/mm3 (0.00-0.031); Immature Granulocyte Percent A 0.7 % (0-0.5); Lymphocytes Absolute Auto 1.48 K/mm3 (0.9-3.2); Lymphocytes Percent Auto 6.8 % (18.3-44.2); Mean Corpuscular HGB Conc 32.5 g/dl (32-36); Mean Corpuscular Hemoglobin 28.8 pg (26-34); Mean Corpuscular Volume 88.4 fl (80-100); Mean Platelet Volume 11.6 fl (7.4-10.4); Monocytes Absolute Auto 0.7 K/mm3 (0.1-0.6); Monocytes Percent Auto 3.2 % (2.6-8.5); Neutrophils Absolute Auto 19.4 K/mm3 (1.3-6.7); Neutrophils Percent Auto 89.2 % (45.5-73.1); Platelet Count Result 189 k/mm3 (150-375); Red Blood Count 3.79 M/mm3 (4.6-6.20); Red Cell Distribution Width 12.2 % (11.5-14.5); White Blood Count 21.7 K/mm3 (4.5-10.0)
[2023-03-27 06:27] LABS: Alanine Aminotransferase 19 U/L (6-50); Albumin Level 2.6 g/dL (3.5-5.1); Alkaline Phosphatase 74 U/L (38-126); Anion Gap 7 mmol/L (8-16); Aspartate Amino Transferase 28 U/L (17-59); Bilirubin,Total 0.3 mg/dL (0.2-1.3); Blood Urea Nitrogen 76 mg/dL (9-20); Calcium 7.8 mg/dL (8.4-10.2); Carbon Dioxide 25 mmol/L (22-30); Chloride 96 mmol/L (98-107); Estimated CRCL calculation 28 ml/min; Estimated Glomerular Filt Rate 24; Glucose 397 mg/dL (65-110); Magnesium 1.7 mg/dL (1.6-2.3); Potassium 4.4 mmol/L (3.4-5.0); Sodium 128 mmol/L (137-145)
[2023-03-27 08:33] LABS: Glucose Point of Care 403 mg/dl (65-105)
[2023-03-27] MEDS: guaiFENesin 12 HR 600 MG TABCR PO (09:20)
[2023-03-27] MEDS: PARoxetine 20 MG TABLET 40 MG PO (09:20)
[2023-03-27] MEDS: OMEGA 3 POLYUNSAT FATTY ACIDS 1 GM CAP PO (09:20)
[2023-03-27] MEDS: GABAPENTIN 100 MG CAPSULE PO ×3 (09:21→17:58)
[2023-03-27] MEDS: carvediloL 25 MG TABLET PO ×2 (09:21→20:47)
[2023-03-27] MEDS: PANTOPRAZOLE 40 MG TABLET PO (09:21)
[2023-03-27] MEDS: ENOXAPARIN 40 MG/0.4 ML SYRINGE SUB-Q (09:23)
[2023-03-27] MEDS: INSULIN ASPART (*BKC) 100 UNITS/ML SUB-Q ×6 (09:24→17:58)
--- NOTE | 2023-03-27 10:55 | PM.IMPN ---
Progress Note: A&P Assessment and Plan (1) Acute hypoxemic respiratory failure: Code(s): J96.01 - Acute respiratory failure with hypoxia Status: Acute Assessment and Plan: Secondary to influenza continue monitor oxygen saturation. Continue nebulizer treatments and IV Solu-Medrol. Started on vancomycin yesterday Cough suppressant p.r.n. Chest x-ray reviewed no consolidations. WBCs 21.7 Blood cultures Staph epidermidis waiting sensitivity (2) FARHAN (acute kidney injury): Code(s): N17.9 - Acute kidney failure, unspecified Status: Acute Assessment and Plan: And gentle hydration. Avoid nephrotoxic drugs. Monitor antihypertensive drugs Avoid NSAIDs. Routine CMP monitor GFR. Monitor electrolytes potassium levels. (3) Influenza A: Code(s): J10.1 - Influenza due to other identified influenza virus with other respiratory manifestations Status: Acute Assessment and Plan: Supportive care. No Tamiflu was given due to time window (4) Heart failure with preserved ejection fraction: Code(s): I50.30 - Unspecified diastolic (congestive) heart failure Status: Acute Assessment and Plan: Continue Lasix and carvedilol Sodium 128 (5) Insulin dependent type 2 diabetes mellitus: Code(s): E11.9 - Type 2 diabetes mellitus without complications; Z79.4 - [facility] (current) use of insulin Status: Chronic Assessment and Plan: Continue glipizide Optimize YOGI-inhibitor and statin Routine glucose monitoring. Watch for Hypoglycemia. BMI goal < 25 Continue NovoLog (6) Paroxysmal atrial fibrillation: Code(s): I48.0 - Paroxysmal atrial fibrillation Status: Chronic Assessment and Plan: Continue Lasix, atorvastatin, ramipril, carvedilol amlodipine History of cardiac disease status post CABG 2001 and stent placement 2017 Time Spent With Patient Time: 40 minutes Subjective Date/time seen: 03/27/23 10:55 Interval history: Patient denies any complaint Review of Systems Review of Systems: All systems reviewed & are unremarkable except as noted in HPI and below Exam Narrative: GENERAL: Well appearing, well-nourished, non-toxic, in no acute distress. HEAD: Normocephalic, atraumatic. NECK: Supple. No adenopathy, no masses. RESPIRATORY: Airway patent, respirations nonlabored. Diffuse crackles auscultation bilaterally, CARDIOVASCULAR: Regular rate and rhythm without murmurs, rubs, or gallops. Peripheral pulses 2+ and equal bilaterally. ABDOMINAL: Soft, nontender, nondistended, no hepatosplenomegaly. Normoactive BS. MUSCULOSKELETAL: no Epigastric and no hypochondrial tenderness SKIN: Warm, dry, normal color. No rashes. Full-thickness wound on the coccyx NEURO: A&O X3. Moves all extremities PSYCHIATRIC: Appropriate mood and affect. Normal interaction. Objective Data Vital Signs Vital Signs: Vital Signs - 24 hr 03/26/23 12:00 03/26/23 13:15 03/26/23 13:28 Temperature Pulse Rate 53 L 56 L 64 Respiratory Rate 16 16 Blood Pressure Pulse Oximetry Oxygen Delivery Oxygen Flow Rate Fraction of Inspired Oxygen 03/26/23 14:49 03/26/23 16:35 03/26/23 16:47 Temperature 36.0 C L Pulse Rate 55 L 68 64 Respiratory Rate 16 16 16 Blood Pressure 178/78 H Pulse Oximetry 93 Oxygen Delivery Oxygen Flow Rate Fraction of Inspired Oxygen 03/26/23 16:00 03/26/23 19:58 03/26/23 20:10 Temperature 36.0 C L Pulse Rate 54 L 58 L 59 L Respiratory Rate 20 16 Blood Pressure 150/55 H Pulse Oximetry 95 97 Oxygen Delivery Nasal Cannula Oxygen Flow Rate 2 Fraction of Inspired Oxygen 28 03/26/23 20:10 03/26/23 20:21 03/26/23 20:28 Temperature Pulse Rate 59 L 59 L 58 L Respiratory Rate 16 16 Blood Pressure Pulse Oximetry Oxygen Delivery Oxygen Flow Rate Fraction of Inspired Oxygen 03/26/23 20:00 03/26/23 22:16 03/26/23 20:00 Temperature 36
[2023-03-27 11:47] LABS: Glucose Point of Care 478 mg/dl (65-105)
[2023-03-27 16:39] LABS: Glucose Point of Care 459 mg/dl (65-105)
[2023-03-27] MEDS: amLODIPine BESYLATE 5 MG TABLET PO (17:58)
[2023-03-27] MEDS: VANCOMYCIN 1,250 MG/NS 250 ML 1,250 MG/250 ML BAG 166.67 MG IVPB (20:47)
[2023-03-27] MEDS: ATORVASTATIN 40 MG TABLET 80 MG PO (20:47)
[2023-03-27] MEDS: MELATONIN 3 MG TABLET PO (20:47)
[2023-03-27] MEDS: INSULIN HUMAN REGULAR (*BKC) 100 UNITS/ML 12 UNITS SUB-Q (20:48)
--- NOTE | 2023-03-27 21:26 | PC.NURSE ---
Pt's glucose at hs 433. Dr Goss notified. One time order for 12 units of regular insulin received. Administered.
[2023-03-27 21:28] LABS: Glucose Point of Care 433 mg/dl (65-105)
[2023-03-28] VITALS (21 sets, daily range): BP systolic 138–187; BP diastolic 60–64; PULSE 50–62; RESP 17–20; TEMP 36.2–36.6; O2SAT 92–97
--- NOTE | 2023-03-28 04:49 | PCRCNOTE ---
pt refuses 0400 breathing tx this morning. RT encouraged pt to take his 0800 breathing tx
[2023-03-28 05:38] LABS: Estimated CRCL calculation 29 ml/min; Estimated Glomerular Filt Rate 25
[2023-03-28] MEDS: ALBUTEROL SULFATE NEB 2.5 MG/3 ML INH INHALATION ×4 (07:42→20:12)
[2023-03-28] MEDS: IPRATROPIUM BR 0.02% INH SOLN 0.5 MG/2.5 ML VIAL INHALATION ×4 (07:42→20:11)
[2023-03-28 08:05] LABS: Glucose Point of Care 390 mg/dl (65-105)
[2023-03-28 08:35] LABS: Hematocrit 32.9 % (42.0-52.0); Hemoglobin 10.7 g/dL (14.0-18.0); Mean Corpuscular HGB Conc 32.5 g/dl (32-36); Mean Corpuscular Hemoglobin 28.5 pg (26-34); Mean Corpuscular Volume 87.5 fl (80-100); Mean Platelet Volume 12.4 fl (7.4-10.4); Platelet Count Result 166 k/mm3 (150-375); Red Blood Count 3.76 M/mm3 (4.6-6.20); White Blood Count 15.9 K/mm3 (4.5-10.0)
[2023-03-28] MEDS: OMEGA 3 POLYUNSAT FATTY ACIDS 1 GM CAP PO (09:42)
[2023-03-28] MEDS: GABAPENTIN 100 MG CAPSULE PO ×3 (09:42→17:23)
[2023-03-28] MEDS: guaiFENesin 12 HR 600 MG TABCR PO (09:42)
[2023-03-28] MEDS: methylPREDNISolone SOD SUCC 40 MG VIAL IV PUSH (09:42)
[2023-03-28] MEDS: PARoxetine 20 MG TABLET 40 MG PO (09:42)
[2023-03-28] MEDS: PANTOPRAZOLE 40 MG TABLET PO (09:42)
[2023-03-28] MEDS: ENOXAPARIN 40 MG/0.4 ML SYRINGE SUB-Q (09:42)
[2023-03-28] MEDS: INSULIN ASPART (*BKC) 100 UNITS/ML SUB-Q ×6 (09:43→17:23)
[2023-03-28] MEDS: POTASSIUM CHLORIDE 20 MEQ PACKET (FOR LIQUID) PO (09:48)
--- NOTE | 2023-03-28 10:14 | PCNFU ---
Nutrition Follow-Up Complete: 1. Altered nutrition related lab values related to type 2 diabetes as evidenced by BG 232 2. Increased protein energy needs related to wound healing as evidenced by deep tissue pressure injuries bilateral buttocks goal: Adequate PO intake at least 75% meals and supplements Patient is progressing towards goal. We will continue current goal. Pt current nutrition is DBCC/Heart Healthy Last recorded weight is 92.3 kg,up from 87.7 kg on admit. Bowel Motility:+Bm reported 03/26 Labs Reviewed:Cr 2.6, GFR 25 Meds Noted:Lovenox,NovoLog, Lasix, Vancomycin, Atrovent, Protonix Skin: Deep Tissue Injury-Varun Buttock Additional Notes: Patient is tolerating oral diet, eating 50-100% of meals. Diet supplements of Ensure compact providing an additional 220 kcal and 9 gms protein. Paulino BID for wound healing providing an additional 80 kcals and 2.5 gms protein. Agree with diet orders. Monitoring labs, intakes, weights, supplement tolerance, wounds, plan of care Follow up in 5 days
--- NOTE | 2023-03-28 11:56 | PM.IMPN ---
Progress Note: A&P Assessment and Plan (1) Acute hypoxemic respiratory failure: Code(s): J96.01 - Acute respiratory failure with hypoxia Status: Acute (2) FARHAN (acute kidney injury): Code(s): N17.9 - Acute kidney failure, unspecified Status: Acute (3) Paroxysmal atrial fibrillation: Code(s): I48.0 - Paroxysmal atrial fibrillation Status: Chronic (4) Insulin dependent type 2 diabetes mellitus: Code(s): E11.9 - Type 2 diabetes mellitus without complications; Z79.4 - alf (current) use of insulin Status: Chronic (5) Heart failure with preserved ejection fraction: Qualifiers: Heart failure chronicity: acute on chronic Qualified Code(s): I50.33 - Acute on chronic diastolic (congestive) heart failure Code(s): I50.30 - Unspecified diastolic (congestive) heart failure Status: Acute Plan Acute respiratory failure with hypoxemia. Continue vancomycin blood cultures positive for Staph epidermidis. Chest x-ray reviewed. WBC counts 15,000. Continue nebulizer treatment and Solu-Medrol. Monitor oxygen saturation. FARHAN And gentle hydration. Creatinine 2.6 Avoid nephrotoxic drugs. Monitor antihypertensive drugs Avoid NSAIDs. Routine CMP monitor GFR. Monitor electrolytes potassium levels. Dose antibiotics depending on creatinine clearance DM Continue glipizide Optimize YOGI-inhibitor and statin Routine glucose monitoring. Watch for Hypoglycemia. BMI goal < 25 Continue NovoLog Atrial fibrillation/CHF with preserved ejection fraction Continue?Lasix, atorvastatin, ramipril, carvedilol amlodipine CABG 2001 and stent placement 2017 Bradycardia monitor carvedilol dose DVT prophylaxis. Lovenox GI prophylaxis. Protonix All records reviewed Discussed plan of care with the nursing staff and with the patient in detail. Answered all questions and concerns from the patient. All labs have been reviewed. Code status updated dictation may have been done utilizing a voice recognition system. Attempts have been made to correct errors. However, there may be uncorrected grammatical, spelling, and recognition errors present. Subjective Date/time seen: 03/28/23 11:56 Interval history: Patient denies any complaint Review of Systems Review of Systems: All systems reviewed & are unremarkable except as noted in HPI and below Exam Narrative: GENERAL: Well appearing, no acute distress. HEAD: Normocephalic, atraumatic. NECK: Supple. No adenopathy, no masses. RESPIRATORY: respirations nonlabored. , no rales, wheezing. CARDIOVASCULAR: Regular rate and rhythm without murmurs, . Peripheral pulses 2+ and equal bilaterally. ABDOMINAL: Soft, nontender, nondistended, no hepatosplenomegaly. Normoactive BS. MUSCULOSKELETAL: no Epigastric and no hypochondrial tenderness SKIN: Warm, dry, NEURO: A&O X3. Moves all extremities Objective Data Vital Signs Vital Signs: Vital Signs - 24 hr 03/27/23 12:25 03/27/23 12:26 03/27/23 14:46 Temperature 36.1 C L Pulse Rate 67 62 62 Respiratory Rate 16 16 Blood Pressure 150/56 H Pulse Oximetry 95 93 Oxygen Delivery Nasal Cannula Oxygen Flow Rate 2 Fraction of Inspired Oxygen 03/27/23 12:00 03/27/23 16:00 03/27/23 20:21 Temperature 36.8 C Pulse Rate 64 56 L 61 Respiratory Rate 18 Blood Pressure 159/64 H Pulse Oximetry 97 Oxygen Delivery Oxygen Flow Rate Fraction of Inspired Oxygen 03/27/23 20:42 03/27/23 20:47 03/27/23 20:55 Temperature Pulse Rate 58 L 68 58 L Respiratory Rate Blood Pressure Pulse Oximetry Oxygen Delivery Oxygen Flow Rate Fraction of Inspired Oxygen 03/27/23 20:00 03/27/23 20:00 03/28/23 00:00 Temperature Pulse Rate 62 58 L 62 Respiratory Rate 17 Blood Pressure Pulse Oximetry 96 Oxygen Delivery Nasal Cannula Oxygen Flow Rate 1 Fraction of Inspired Oxygen 03/28/23 04:00 03/28/23
[2023-03-28 12:07] LABS: Glucose Point of Care 408 mg/dl (65-105)
[2023-03-28 17:22] LABS: Glucose Point of Care 272 mg/dl (65-105)
[2023-03-28] MEDS: amLODIPine BESYLATE 5 MG TABLET PO (17:23)
[2023-03-28] MEDS: AMPICILLIN 2 GM/NS 100 ML 2 GM/100 ML BAG IVPB ×2 (17:26→21:15)
[2023-03-28 20:20] LABS: Glucose Point of Care 281 mg/dl (65-105)
[2023-03-28] MEDS: MELATONIN 3 MG TABLET PO (21:16)
[2023-03-28] MEDS: ATORVASTATIN 40 MG TABLET 80 MG PO (21:16)
[2023-03-29] VITALS (26 sets, daily range): BP systolic 128–200; BP diastolic 62–80; PULSE 52–92; RESP 16–20; TEMP 36.1–36.7; O2SAT 93–98
[2023-03-29] MEDS: ALBUTEROL SULFATE NEB 2.5 MG/3 ML INH INHALATION ×6 (00:15→20:34)
[2023-03-29] MEDS: IPRATROPIUM BR 0.02% INH SOLN 0.5 MG/2.5 ML VIAL INHALATION ×6 (00:15→20:34)
[2023-03-29] MEDS: AMPICILLIN 2 GM/NS 100 ML 2 GM/100 ML BAG IVPB ×3 (05:12→21:05)
[2023-03-29 06:24] LABS: Potassium 4.4 mmol/L (3.4-5.0)
[2023-03-29 08:37] LABS: Glucose Point of Care 360 mg/dl (65-105)
[2023-03-29] MEDS: INSULIN ASPART (*BKC) 100 UNITS/ML SUB-Q ×5 (09:02→17:33)
[2023-03-29] MEDS: GABAPENTIN 100 MG CAPSULE PO ×3 (09:05→17:33)
[2023-03-29] MEDS: PARoxetine 20 MG TABLET 40 MG PO (09:05)
[2023-03-29] MEDS: OMEGA 3 POLYUNSAT FATTY ACIDS 1 GM CAP PO (09:05)
[2023-03-29] MEDS: PANTOPRAZOLE 40 MG TABLET PO (09:05)
[2023-03-29] MEDS: guaiFENesin 12 HR 600 MG TABCR PO (09:05)
[2023-03-29] MEDS: POTASSIUM CHLORIDE 20 MEQ PACKET (FOR LIQUID) PO (09:06)
[2023-03-29] MEDS: methylPREDNISolone SOD SUCC 40 MG VIAL IV PUSH (09:11)
[2023-03-29] MEDS: ENOXAPARIN 40 MG/0.4 ML SYRINGE SUB-Q (09:11)
--- NOTE | 2023-03-29 11:28 | PM.IMPN ---
Progress Note: A&P Assessment and Plan (1) Acute hypoxemic respiratory failure: Code(s): J96.01 - Acute respiratory failure with hypoxia Status: Acute (2) FARHAN (acute kidney injury): Code(s): N17.9 - Acute kidney failure, unspecified Status: Acute (3) Paroxysmal atrial fibrillation: Code(s): I48.0 - Paroxysmal atrial fibrillation Status: Chronic (4) Insulin dependent type 2 diabetes mellitus: Code(s): E11.9 - Type 2 diabetes mellitus without complications; Z79.4 - assisted (current) use of insulin Status: Chronic (5) Heart failure with preserved ejection fraction: Qualifiers: Heart failure chronicity: acute on chronic Qualified Code(s): I50.33 - Acute on chronic diastolic (congestive) heart failure Code(s): I50.30 - Unspecified diastolic (congestive) heart failure Status: Acute Plan Acute respiratory failure with hypoxemia. Continue vancomycin blood cultures positive for Staph epidermidis. Chest x-ray reviewed. WBC counts 15,000. Continue nebulizer treatment and Solu-Medrol. Monitor oxygen saturation. FARHAN And gentle hydration. Creatinine 2.6 Avoid nephrotoxic drugs. Monitor antihypertensive drugs Avoid NSAIDs. Routine CMP monitor GFR. Monitor electrolytes potassium levels. Dose antibiotics depending on creatinine clearance DM Continue glipizide Optimize YOGI-inhibitor and statin Routine glucose monitoring. Watch for Hypoglycemia. BMI goal < 25 Continue NovoLog Atrial fibrillation/CHF with preserved ejection fraction Continue?Lasix, atorvastatin, ramipril, carvedilol amlodipine CABG 2001 and stent placement 2017 Bradycardia monitor carvedilol dose DVT prophylaxis. Lovenox GI prophylaxis. Protonix All records reviewed Discussed plan of care with the nursing staff and with the patient in detail. Answered all questions and concerns from the patient. All labs have been reviewed. Code status updated dictation may have been done utilizing a voice recognition system. Attempts have been made to correct errors. However, there may be uncorrected grammatical, spelling, and recognition errors present. Subjective Date/time seen: 03/29/23 11:28 Interval history: Patient denies any complaint Review of Systems Review of Systems: All systems reviewed & are unremarkable except as noted in HPI and below Exam Narrative: GENERAL: Well appearing, no acute distress. HEAD: Normocephalic, atraumatic. NECK: Supple. No adenopathy, no masses. RESPIRATORY: respirations nonlabored. , no rales, wheezing. CARDIOVASCULAR: Regular rate and rhythm without murmurs, . Peripheral pulses 2+ and equal bilaterally. ABDOMINAL: Soft, nontender, nondistended, no hepatosplenomegaly. Normoactive BS. MUSCULOSKELETAL: no Epigastric and no hypochondrial tenderness SKIN: Warm, dry, NEURO: A&O X3. Moves all extremities Objective Data Vital Signs Vital Signs: Vital Signs - 24 hr 03/28/23 11:58 03/28/23 11:58 03/28/23 12:07 Temperature Pulse Rate 61 60 Respiratory Rate 18 18 Blood Pressure Pulse Oximetry 92 Oxygen Delivery Nasal Cannula Oxygen Flow Rate 1 03/28/23 14:00 03/28/23 15:31 03/28/23 15:45 Temperature 36.4 C Pulse Rate 58 L 56 L 54 L Respiratory Rate 17 20 20 Blood Pressure 138/62 Pulse Oximetry 96 Oxygen Delivery Oxygen Flow Rate 03/28/23 12:00 03/28/23 16:00 03/28/23 16:00 Temperature 36.5 C Pulse Rate 59 L 57 L 60 Respiratory Rate 17 Blood Pressure 140/64 Pulse Oximetry 97 Oxygen Delivery Oxygen Flow Rate 03/28/23 20:12 03/28/23 20:14 03/28/23 20:20 Temperature Pulse Rate 61 57 L Respiratory Rate 20 20 Blood Pressure Pulse Oximetry 93 Oxygen Delivery Nasal Cannula Oxygen Flow Rate 1 03/28/23 20:29 03/28/23 20:00 03/28/23 21:49 Temperature 36.2 C L 36.2 C L Pulse Rate 56 L 52 L 56 L Respiratory Rate 18 18 Blood Pressure 187/64 H
[2023-03-29 11:36] LABS: Hematocrit 34.7 % (42.0-52.0); Hemoglobin 11.2 g/dL (14.0-18.0); Mean Corpuscular HGB Conc 32.3 g/dl (32-36); Mean Corpuscular Hemoglobin 28.5 pg (26-34); Mean Corpuscular Volume 88.3 fl (80-100); Mean Platelet Volume 12.3 fl (7.4-10.4); Platelet Count Result 144 k/mm3 (150-375); Red Blood Count 3.93 M/mm3 (4.6-6.20); Red Cell Distribution Width 12.1 % (11.5-14.5); White Blood Count 13.2 K/mm3 (4.5-10.0)
[2023-03-29 11:50] LABS: Alanine Aminotransferase 17 U/L (6-50); Albumin Level 2.7 g/dL (3.5-5.1); Alkaline Phosphatase 80 U/L (38-126); Anion Gap 9 mmol/L (8-16); Aspartate Amino Transferase 23 U/L (17-59); Bilirubin,Total 0.3 mg/dL (0.2-1.3); Blood Urea Nitrogen 80 mg/dL (9-20); Calcium 8.2 mg/dL (8.4-10.2); Carbon Dioxide 23 mmol/L (22-30); Chloride 98 mmol/L (98-107); Estimated CRCL calculation 32 ml/min; Estimated Glomerular Filt Rate 29; Glucose 346 mg/dL (65-110); Potassium 4.6 mmol/L (3.4-5.0); Sodium 130 mmol/L (137-145)
[2023-03-29 12:15] LABS: Glucose Point of Care 405 mg/dl (65-105)
[2023-03-29] MEDS: INSULIN ASPART (*BKC) 100 UNITS/ML 10 UNITS SUB-Q (12:34)
[2023-03-29 17:14] LABS: Glucose Point of Care 356 mg/dl (65-105)
[2023-03-29] MEDS: amLODIPine BESYLATE 5 MG TABLET PO (17:33)
[2023-03-29] MEDS: hydrALAZINE HCL 20 MG/ML VIAL 10 MG IV PUSH (20:25)
[2023-03-29 20:52] LABS: Glucose Point of Care 383 mg/dl (65-105)
[2023-03-29] MEDS: ATORVASTATIN 40 MG TABLET 80 MG PO (21:04)
[2023-03-29] MEDS: carvediloL 25 MG TABLET PO (21:04)
[2023-03-29] MEDS: MELATONIN 3 MG TABLET PO (21:04)
[2023-03-30] VITALS (23 sets, daily range): BP systolic 147–196; BP diastolic 50–63; PULSE 48–66; RESP 16–20; TEMP 36.5–36.8; O2SAT 95–97
--- NOTE | 2023-03-30 04:58 | PCRCNOTE ---
Patient did not want to bothered while asleep. Updraft treatment to resume at 0800.
[2023-03-30] MEDS: AMPICILLIN 2 GM/NS 100 ML 2 GM/100 ML BAG IVPB ×3 (05:07→21:06)
[2023-03-30 08:09] LABS: Glucose Point of Care 358 mg/dl (65-105)
[2023-03-30] MEDS: IPRATROPIUM BR 0.02% INH SOLN 0.5 MG/2.5 ML VIAL INHALATION ×4 (08:18→20:49)
[2023-03-30] MEDS: ALBUTEROL SULFATE NEB 2.5 MG/3 ML INH INHALATION ×4 (08:18→20:49)
[2023-03-30] MEDS: INSULIN ASPART (*BKC) 100 UNITS/ML SUB-Q ×6 (08:54→18:00)
[2023-03-30] MEDS: hydrALAZINE HCL 20 MG/ML VIAL 10 MG IV PUSH (08:55)
[2023-03-30] MEDS: OMEGA 3 POLYUNSAT FATTY ACIDS 1 GM CAP PO (08:56)
[2023-03-30] MEDS: guaiFENesin 12 HR 600 MG TABCR PO (08:56)
[2023-03-30] MEDS: ENOXAPARIN 40 MG/0.4 ML SYRINGE SUB-Q (08:56)
[2023-03-30] MEDS: PANTOPRAZOLE 40 MG TABLET PO (08:56)
[2023-03-30] MEDS: PARoxetine 20 MG TABLET 40 MG PO (08:56)
[2023-03-30] MEDS: GABAPENTIN 100 MG CAPSULE PO ×3 (08:56→17:59)
[2023-03-30] MEDS: methylPREDNISolone SOD SUCC 40 MG VIAL IV PUSH (08:56)
[2023-03-30] MEDS: carvediloL 12.5 MG TABLET PO ×2 (09:01→21:05)
[2023-03-30 10:48] LABS: Hemoglobin 11.5 g/dL (14.0-18.0); Mean Corpuscular HGB Conc 32.9 g/dl (32-36); Mean Corpuscular Hemoglobin 28.3 pg (26-34); Mean Corpuscular Volume 86.2 fl (80-100); Mean Platelet Volume 11.4 fl (7.4-10.4); Platelet Count Result 151 k/mm3 (150-375); Red Blood Count 4.06 M/mm3 (4.6-6.20); White Blood Count 13.1 K/mm3 (4.5-10.0)
--- NOTE | 2023-03-30 10:57 | PM.IMPN ---
Progress Note: A&P Assessment and Plan (1) Acute hypoxemic respiratory failure: Code(s): J96.01 - Acute respiratory failure with hypoxia Status: Acute (2) FARHAN (acute kidney injury): Code(s): N17.9 - Acute kidney failure, unspecified Status: Acute (3) Paroxysmal atrial fibrillation: Code(s): I48.0 - Paroxysmal atrial fibrillation Status: Chronic (4) Insulin dependent type 2 diabetes mellitus: Code(s): E11.9 - Type 2 diabetes mellitus without complications; Z79.4 - retirement (current) use of insulin Status: Chronic (5) Heart failure with preserved ejection fraction: Qualifiers: Heart failure chronicity: acute on chronic Qualified Code(s): I50.33 - Acute on chronic diastolic (congestive) heart failure Code(s): I50.30 - Unspecified diastolic (congestive) heart failure Status: Acute Plan Acute respiratory failure with hypoxemia. Continue ampicillin 2 g blood cultures positive for Staph epidermidis. Chest x-ray reviewed. WBC counts 13,000. Continue nebulizer treatment and Solu-Medrol. Monitor oxygen saturation. FARHAN And gentle hydration. Creatinine 2.6 Avoid nephrotoxic drugs. Monitor antihypertensive drugs Avoid NSAIDs. Routine CMP monitor GFR. Monitor electrolytes potassium levels. Dose antibiotics depending on creatinine clearance DM Continue glipizide 2 with the Optimize YOGI-inhibitor and statin Routine glucose monitoring. Watch for Hypoglycemia. BMI goal < 25 Continue NovoLog Atrial fibrillation/CHF with preserved ejection fraction Continue?Lasix, atorvastatin, carvedilol CABG 2001 and stent placement 2017 Bradycardia will lower carvedilol to 12.5 b.i.d.. Uncontrolled hypertension 170/100 increase amlodipine to 10 mg and ramipril to 20 mg DVT prophylaxis. Lovenox GI prophylaxis. Protonix All records reviewed Discussed plan of care with the nursing staff and with the patient in detail. Answered all questions and concerns from the patient. All labs have been reviewed. Code status updated dictation may have been done utilizing a voice recognition system. Attempts have been made to correct errors. However, there may be uncorrected grammatical, spelling, and recognition errors present. Subjective Date/time seen: 03/30/23 10:57 Interval history: The patient's cough all lot better denied any chest pain or shortness of breath still complains of little fatigued has not started ambulating patient blood pressure has been running slightly high systolic in the 170 Review of Systems Review of Systems: All systems reviewed & are unremarkable except as noted in HPI and below Exam Narrative: GENERAL: Well appearing, no acute distress. HEAD: Normocephalic, atraumatic. NECK: Supple. No adenopathy, no masses. RESPIRATORY: respirations nonlabored. , no rales, wheezing. CARDIOVASCULAR: Regular rate and rhythm without murmurs, . Peripheral pulses 2+ and equal bilaterally. ABDOMINAL: Soft, nontender, nondistended, no hepatosplenomegaly. Normoactive BS. MUSCULOSKELETAL: no Epigastric and no hypochondrial tenderness SKIN: Warm, dry, NEURO: A&O X3. Moves all extremities Objective Data Vital Signs Vital Signs: Vital Signs - 24 hr 03/29/23 12:58 03/29/23 13:00 03/29/23 13:11 Temperature Pulse Rate 63 63 64 Respiratory Rate 20 20 20 Blood Pressure Pulse Oximetry 93 Oxygen Delivery Nasal Cannula Oxygen Flow Rate 1 03/29/23 14:00 03/29/23 16:29 03/29/23 16:39 Temperature 36.6 C Pulse Rate 92 61 66 Respiratory Rate 19 Blood Pressure 128/62 Pulse Oximetry 98 Oxygen Delivery Oxygen Flow Rate 03/29/23 12:00 03/29/23 16:00 03/29/23 19:32 Temperature 36.7 C Pulse Rate 55 L 59 L 55 L Respiratory Rate 16 Blood Pressure 200/80 H Pulse Oximetry 97 Oxygen Delivery Oxygen Flow Rate 03/29/23 20:22 03/29/23 20:35 03/29/23 20:37 Temperature Pulse Rate 56 L
[2023-03-30 11:02] LABS: Alanine Aminotransferase 19 U/L (6-50); Albumin Level 2.7 g/dL (3.5-5.1); Alkaline Phosphatase 79 U/L (38-126); Anion Gap 6 mmol/L (8-16); Aspartate Amino Transferase 24 U/L (17-59); Bilirubin,Total 0.4 mg/dL (0.2-1.3); Blood Urea Nitrogen 76 mg/dL (9-20); Calcium 8.2 mg/dL (8.4-10.2); Carbon Dioxide 26 mmol/L (22-30); Chloride 101 mmol/L (98-107); Estimated CRCL calculation 39 ml/min; Estimated Glomerular Filt Rate 36; Glucose 386 mg/dL (65-110); Potassium 4.4 mmol/L (3.4-5.0); Sodium 133 mmol/L (137-145)
[2023-03-30 12:11] LABS: Glucose Point of Care 378 mg/dl (65-105)
[2023-03-30 17:05] LABS: Glucose Point of Care 321 mg/dl (65-105)
[2023-03-30] MEDS: amLODIPine BESYLATE 5 MG TABLET 10 MG PO (17:59)
[2023-03-30 20:46] LABS: Glucose Point of Care 372 mg/dl (65-105)
[2023-03-30] MEDS: ATORVASTATIN 40 MG TABLET 80 MG PO (21:05)
[2023-03-30] MEDS: MELATONIN 3 MG TABLET PO (21:05)
[2023-03-31] VITALS (22 sets, daily range): BP systolic 158–175; BP diastolic 54–67; PULSE 52–66; RESP 16–18; TEMP 36.2–36.7; O2SAT 91–99
[2023-03-31] MEDS: IPRATROPIUM BR 0.02% INH SOLN 0.5 MG/2.5 ML VIAL INHALATION ×5 (01:08→23:40)
[2023-03-31] MEDS: ALBUTEROL SULFATE NEB 2.5 MG/3 ML INH INHALATION ×5 (01:08→23:40)
[2023-03-31] MEDS: AMPICILLIN 2 GM/NS 100 ML 2 GM/100 ML BAG IVPB ×3 (05:14→21:06)
[2023-03-31 05:30] LABS: Potassium 4.5 mmol/L (3.4-5.0)
[2023-03-31 07:57] LABS: Glucose Point of Care 343 mg/dl (65-105)
[2023-03-31] MEDS: PARoxetine 20 MG TABLET 40 MG PO (08:42)
[2023-03-31] MEDS: carvediloL 12.5 MG TABLET PO ×2 (08:42→21:05)
[2023-03-31] MEDS: OMEGA 3 POLYUNSAT FATTY ACIDS 1 GM CAP PO (08:42)
[2023-03-31] MEDS: PANTOPRAZOLE 40 MG TABLET PO (08:42)
[2023-03-31] MEDS: GABAPENTIN 100 MG CAPSULE PO ×3 (08:42→17:51)
[2023-03-31] MEDS: guaiFENesin 12 HR 600 MG TABCR PO (08:42)
[2023-03-31] MEDS: ENOXAPARIN 40 MG/0.4 ML SYRINGE SUB-Q (08:43)
[2023-03-31] MEDS: methylPREDNISolone SOD SUCC 40 MG VIAL IV PUSH (08:43)
[2023-03-31] MEDS: INSULIN ASPART (*BKC) 100 UNITS/ML SUB-Q ×4 (08:43→17:51)
--- NOTE | 2023-03-31 08:47 | PM.IMPN ---
Progress Note: A&P Assessment and Plan (1) Acute hypoxemic respiratory failure: Code(s): J96.01 - Acute respiratory failure with hypoxia Status: Acute (2) FARHAN (acute kidney injury): Code(s): N17.9 - Acute kidney failure, unspecified Status: Acute (3) Paroxysmal atrial fibrillation: Code(s): I48.0 - Paroxysmal atrial fibrillation Status: Chronic (4) Insulin dependent type 2 diabetes mellitus: Code(s): E11.9 - Type 2 diabetes mellitus without complications; Z79.4 - halfway (current) use of insulin Status: Chronic (5) Heart failure with preserved ejection fraction: Qualifiers: Heart failure chronicity: acute on chronic Qualified Code(s): I50.33 - Acute on chronic diastolic (congestive) heart failure Code(s): I50.30 - Unspecified diastolic (congestive) heart failure Status: Acute Plan Acute respiratory failure with hypoxemia. Continue ampicillin 2 g blood cultures positive for Staph epidermidis. Chest x-ray reviewed. WBC counts 11k Continue nebulizer treatment and Solu-Medrol. Monitor oxygen saturation. FARHAN And gentle hydration. Creatinine 1.9 . Improved Monitor antihypertensive drugs Avoid NSAIDs. Routine CMP monitor GFR. Monitor electrolytes potassium levels. Dose antibiotics depending on creatinine clearance DM Continue glipizide 2 with the Optimize YOGI-inhibitor and statin Routine glucose monitoring. Watch for Hypoglycemia. BMI goal < 25 Continue NovoLog Atrial fibrillation/CHF with preserved ejection fraction Continue?Lasix, atorvastatin, carvedilol CABG 2001 and stent placement 2017 Bradycardia will lower carvedilol to 12.5 b.i.d.. Uncontrolled hypertension 140/100 improved on amlodipine to 10 mg and ramipril to 20 mg Patient is cleared for discharge tomorrow if medically stable. On Augmentin and blood pressure are well controlled DVT prophylaxis. Lovenox GI prophylaxis. Protonix All records reviewed Discussed plan of care with the nursing staff and with the patient in detail. Answered all questions and concerns from the patient. All labs have been reviewed. Code status updated dictation may have been done utilizing a voice recognition system. Attempts have been made to correct errors. However, there may be uncorrected grammatical, spelling, and recognition errors present. Subjective Date/time seen: 03/31/23 08:47 Interval history: The patient's cough all lot better denied any chest pain or shortness of breath still complains of little fatigued has not started ambulating patient blood pressure was more stable Review of Systems Review of Systems: All systems reviewed & are unremarkable except as noted in HPI and below Exam Narrative: GENERAL: Well appearing, no acute distress. HEAD: Normocephalic, atraumatic. NECK: Supple. No adenopathy, no masses. RESPIRATORY: respirations nonlabored. , no rales, wheezing. CARDIOVASCULAR: Regular rate and rhythm without murmurs, . Peripheral pulses 2+ and equal bilaterally. ABDOMINAL: Soft, nontender, nondistended, no hepatosplenomegaly. Normoactive BS. MUSCULOSKELETAL: no Epigastric and no hypochondrial tenderness SKIN: Warm, dry, NEURO: A&O X3. Moves all extremities Objective Data Vital Signs Vital Signs: Vital Signs - 24 hr 03/30/23 09:01 03/30/23 09:59 03/30/23 11:46 Temperature Pulse Rate 52 L 55 L Respiratory Rate 18 Blood Pressure 147/50 H Pulse Oximetry Oxygen Delivery Oxygen Flow Rate 03/30/23 11:56 03/30/23 13:47 03/30/23 15:44 Temperature 36.8 C Pulse Rate 51 L 58 L 54 L Respiratory Rate 18 16 18 Blood Pressure 149/53 H Pulse Oximetry 95 Oxygen Delivery Oxygen Flow Rate 03/30/23 15:56 03/30/23 12:00 03/30/23 16:00 Temperature Pulse Rate 55 L 54 L 56 L Respiratory Rate 18 Blood Pressure Pulse Oximetry Oxygen Delivery Oxygen Flow Rate 03/30/23 19:29 03/30/23 20:00
[2023-03-31 10:26] LABS: Hemoglobin A1C 9.6 % (<5.7)
--- NOTE | 2023-03-31 11:25 | PCPTNOTE ---
03/31/23 MW PT - attempted eval. Patient refused.
[2023-03-31 12:21] LABS: Glucose Point of Care 392 mg/dl (65-105)
[2023-03-31] MEDS: INSULIN ASPART (*BKC) 100 UNITS/ML 6 UNITS SUB-Q ×2 (12:47→17:51)
[2023-03-31 17:13] LABS: Glucose Point of Care 389 mg/dl (65-105)
[2023-03-31] MEDS: amLODIPine BESYLATE 5 MG TABLET 10 MG PO (17:51)
[2023-03-31] MEDS: MELATONIN 3 MG TABLET PO (21:05)
[2023-03-31] MEDS: ATORVASTATIN 40 MG TABLET 80 MG PO (21:05)
[2023-03-31 21:27] LABS: Glucose Point of Care 337 mg/dl (65-105)
[2023-04-01] VITALS (22 sets, daily range): BP systolic 153–200; BP diastolic 46–70; PULSE 50–61; RESP 16–20; TEMP 36.4–36.9; O2SAT 92–97
[2023-04-01] MEDS: AMPICILLIN 2 GM/NS 100 ML 2 GM/100 ML BAG IVPB ×3 (05:28→21:10)
[2023-04-01] MEDS: ALBUTEROL SULFATE NEB 2.5 MG/3 ML INH INHALATION ×2 (07:33→11:19)
[2023-04-01] MEDS: IPRATROPIUM BR 0.02% INH SOLN 0.5 MG/2.5 ML VIAL INHALATION ×2 (07:33→11:19)
[2023-04-01 08:04] LABS: Glucose Point of Care 297 mg/dl (65-105)
[2023-04-01] MEDS: INSULIN ASPART (*BKC) 100 UNITS/ML 6 UNITS SUB-Q ×3 (09:19→17:49)
[2023-04-01] MEDS: methylPREDNISolone SOD SUCC 40 MG VIAL IV PUSH (09:20)
[2023-04-01] MEDS: INSULIN ASPART (*BKC) 100 UNITS/ML SUB-Q ×3 (09:20→17:49)
[2023-04-01] MEDS: carvediloL 12.5 MG TABLET PO ×2 (09:20→21:10)
[2023-04-01] MEDS: OMEGA 3 POLYUNSAT FATTY ACIDS 1 GM CAP PO (09:20)
[2023-04-01] MEDS: GABAPENTIN 100 MG CAPSULE PO ×3 (09:20→17:49)
[2023-04-01] MEDS: guaiFENesin 12 HR 600 MG TABCR PO (09:21)
[2023-04-01] MEDS: PANTOPRAZOLE 40 MG TABLET PO (09:21)
[2023-04-01] MEDS: ENOXAPARIN 40 MG/0.4 ML SYRINGE SUB-Q (09:21)
[2023-04-01] MEDS: PARoxetine 20 MG TABLET 40 MG PO (09:21)
[2023-04-01 12:09] LABS: Glucose Point of Care 330 mg/dl (65-105)
--- NOTE | 2023-04-01 13:49 | PM.IMPN ---
Progress Note: A&P Assessment and Plan (1) Acute hypoxemic respiratory failure: Code(s): J96.01 - Acute respiratory failure with hypoxia Status: Acute Assessment and Plan: Wean oxygen; Incentive spirometry (2) FARHAN (acute kidney injury): Code(s): N17.9 - Acute kidney failure, unspecified Status: Acute Assessment and Plan: Monitor renal profile; avoid nephrotoxin (3) Paroxysmal atrial fibrillation: Code(s): I48.0 - Paroxysmal atrial fibrillation Status: Chronic (4) Insulin dependent type 2 diabetes mellitus: Code(s): E11.9 - Type 2 diabetes mellitus without complications; Z79.4 - medical terminologist (current) use of insulin Status: Chronic Assessment and Plan: Basal+correctional insulin (5) Heart failure with preserved ejection fraction: Qualifiers: Heart failure chronicity: acute on chronic Qualified Code(s): I50.33 - Acute on chronic diastolic (congestive) heart failure Code(s): I50.30 - Unspecified diastolic (congestive) heart failure Status: Acute (6) Physical deconditioning: Code(s): R53.81 - Other malaise Status: Acute Assessment and Plan: PT/OT eval and Rx Plan Acute respiratory failure with hypoxemia. Continue ampicillin 2 g blood cultures positive for Staph epidermidis. Chest x-ray reviewed. WBC counts 11k Continue nebulizer treatment and Solu-Medrol. Monitor oxygen saturation. FARHAN And gentle hydration. Creatinine 1.9 . Improved Monitor antihypertensive drugs Avoid NSAIDs. Routine CMP monitor GFR. Monitor electrolytes potassium levels. Dose antibiotics depending on creatinine clearance DM Continue glipizide 2 with the Optimize YOGI-inhibitor and statin Routine glucose monitoring. Watch for Hypoglycemia. BMI goal < 25 Continue NovoLog Atrial fibrillation/CHF with preserved ejection fraction Continue?Lasix, atorvastatin, carvedilol CABG 2001 and stent placement 2017 Bradycardia will lower carvedilol to 12.5 b.i.d.. Uncontrolled hypertension 140/100 improved on amlodipine to 10 mg and ramipril to 20 mg Patient is cleared for discharge tomorrow if medically stable. On Augmentin and blood pressure are well controlled DVT prophylaxis. Lovenox GI prophylaxis. Protonix All records reviewed Discussed plan of care with the nursing staff and with the patient in detail. Answered all questions and concerns from the patient. All labs have been reviewed. Code status updated dictation may have been done utilizing a voice recognition system. Attempts have been made to correct errors. However, there may be uncorrected grammatical, spelling, and recognition errors present. Time Spent With Patient Time with patient: 25 - 35 minutes Subjective Date/time seen: 04/01/23 13:49 Interval history: Seen and examined; unable to bend waist when asked to sit up. Review of Systems Review of Systems: All systems reviewed & are unremarkable except as noted in HPI and below Constitutional: Constitutional: Reports weakness Eyes: Eyes: Reports no additional eye complaints ENT: Reports system reviewed and no additional complaints, except as documented Cardiovascular: Cardiovascular: Reports no additional cardiovascular complaints Musculoskeletal: Musculoskeletal: Reports back pain Comments: Stiff waist Integumentary/Breasts: Skin/Breast: Reports dry skin Neurologic: Reports abnormal gait Exam Narrative: GENERAL: Well appearing, no acute distress. HEAD: Normocephalic, atraumatic. NECK: Supple. No adenopathy, no masses. RESPIRATORY: respirations nonlabored. , no rales, wheezing. CARDIOVASCULAR: Regular rate and rhythm without murmurs, . Peripheral pulses 2+ and equal bilaterally. ABDOMINAL: Soft, nontender, nondistended, no hepatosplenomegaly. Normoactive BS. MUSCULOSKELETAL: no Epigastric and no hypochondrial tenderness SKIN: Warm, dry, NEURO: A&O X3. Moves all extremities
[2023-04-01] MEDS: IPRATROPIUM 0.5 MG/ALBUTEROL SULFATE 2.5 MG AMPUL.NEB 3 ML INHALATION ×2 (16:37→19:47)
[2023-04-01 17:17] LABS: Glucose Point of Care 392 mg/dl (65-105)
[2023-04-01] MEDS: INSULIN GLARGINE (*BKC) 100 UNITS/ML 15 UNITS SUB-Q (17:48)
[2023-04-01] MEDS: amLODIPine BESYLATE 5 MG TABLET 10 MG PO (17:49)
[2023-04-01 20:32] LABS: Glucose Point of Care 391 mg/dl (65-105)
[2023-04-01] MEDS: MELATONIN 3 MG TABLET PO (21:11)
[2023-04-01] MEDS: ATORVASTATIN 40 MG TABLET 80 MG PO (21:11)
[2023-04-01] MEDS: hydrALAZINE HCL 20 MG/ML VIAL 10 MG IV PUSH (21:15)
[2023-04-02] VITALS (11 sets, daily range): BP systolic 158–160; BP diastolic 51–62; PULSE 52–64; RESP 16–20; TEMP 36.6; O2SAT 93–95
[2023-04-02] MEDS: IPRATROPIUM 0.5 MG/ALBUTEROL SULFATE 2.5 MG AMPUL.NEB 3 ML INHALATION ×2 (03:21→13:52)
[2023-04-02] MEDS: AMPICILLIN 2 GM/NS 100 ML 2 GM/100 ML BAG IVPB (05:37)
[2023-04-02 05:56] LABS: Basophils Absolute Auto 0.1 K/mm3 (0.0-0.1); Basophils Percent Auto 0.5 % (0.2-1.2); Eosinophils Percent Auto 0.2 % (0-4.4); Hematocrit 32.5 % (42.0-52.0); Hemoglobin 10.7 g/dL (14.0-18.0); Immature Granulocyte Absolute 1.44 K/mm3 (0.00-0.031); Immature Granulocyte Percent A 7.9 % (0-0.5); Lymphocytes Absolute Auto 2.52 K/mm3 (0.9-3.2); Lymphocytes Percent Auto 13.7 % (18.3-44.2); Mean Corpuscular HGB Conc 32.9 g/dl (32-36); Mean Corpuscular Hemoglobin 28.5 pg (26-34); Mean Corpuscular Volume 86.7 fl (80-100); Mean Platelet Volume 11.7 fl (7.4-10.4); Monocytes Absolute Auto 1.1 K/mm3 (0.1-0.6); Monocytes Percent Auto 6.2 % (2.6-8.5); Neutrophils Absolute Auto 13.1 K/mm3 (1.3-6.7); Neutrophils Percent Auto 71.5 % (45.5-73.1); Platelet Count Result 219 k/mm3 (150-375); Red Blood Count 3.75 M/mm3 (4.6-6.20); Red Cell Distribution Width 12.1 % (11.5-14.5); White Blood Count 18.3 K/mm3 (4.5-10.0)
[2023-04-02 06:20] LABS: Alanine Aminotransferase 42 U/L (6-50); Albumin Level 2.7 g/dL (3.5-5.1); Alkaline Phosphatase 71 U/L (38-126); Anion Gap 2 mmol/L (8-16); Aspartate Amino Transferase 32 U/L (17-59); Bilirubin,Total 0.4 mg/dL (0.2-1.3); Blood Urea Nitrogen 64 mg/dL (9-20); Calcium 8.1 mg/dL (8.4-10.2); Carbon Dioxide 29 mmol/L (22-30); Chloride 100 mmol/L (98-107); Estimated CRCL calculation 39 ml/min; Estimated Glomerular Filt Rate 36; Glucose 315 mg/dL (65-110); Sodium 131 mmol/L (137-145)
--- NOTE | 2023-04-02 08:11 | PCRCNOTE ---
Patient refused 0800 neb tx, SPO2 was 94% on room air. RN informed of refusal.
[2023-04-02 08:50] LABS: Glucose Point of Care 316 mg/dl (65-105)
[2023-04-02] MEDS: INSULIN ASPART (*BKC) 100 UNITS/ML SUB-Q ×2 (08:53→12:13)
[2023-04-02] MEDS: INSULIN ASPART (*BKC) 100 UNITS/ML 6 UNITS SUB-Q ×2 (08:54→12:13)
[2023-04-02] MEDS: INSULIN GLARGINE (*BKC) 100 UNITS/ML 15 UNITS SUB-Q (09:06)
[2023-04-02] MEDS: methylPREDNISolone SOD SUCC 40 MG VIAL IV PUSH (09:07)
[2023-04-02] MEDS: ENOXAPARIN 40 MG/0.4 ML SYRINGE SUB-Q (09:07)
[2023-04-02] MEDS: carvediloL 12.5 MG TABLET PO (09:07)
[2023-04-02] MEDS: PARoxetine 20 MG TABLET 40 MG PO (09:07)
[2023-04-02] MEDS: GABAPENTIN 100 MG CAPSULE PO ×2 (09:07→12:13)
[2023-04-02] MEDS: PANTOPRAZOLE 40 MG TABLET PO (09:08)
[2023-04-02] MEDS: guaiFENesin 12 HR 600 MG TABCR PO (09:08)
[2023-04-02] MEDS: OMEGA 3 POLYUNSAT FATTY ACIDS 1 GM CAP PO (09:08)
--- NOTE | 2023-04-02 10:37 | PCNFU ---
Nutrition Follow-Up Complete: 1. Altered nutrition related lab values related to type 2 diabetes as evidenced by BG 232 2. Increased protein energy needs related to wound healing as evidenced by deep tissue pressure injuries bilateral buttocks Goal: Adequate PO intake at least 75% meals and supplements Patient is meeting goal. No new goal. Pt current nutrition is DBCC/Heart Healthy. Last recorded weight is 91.3 kg, up from 87.7 kg. Bowel Motility:+BM reported 04/01 Labs Reviewed: Glu 315,GFR 36,BUN 64, Cr 1.9, Na 131, Alb 2.7 Meds Note: Protonix, Lasix, Atrovent, NovoLog, Lovenox. Skin: Deep Tissue-Bilateral Buttock Additional Notes: Patient is tolerating a heart healthy/DBCC diet. Oral intake is 50-100% of meals. Agree with diet orders. Monitoring labs, intakes, weights, supplement tolerance, wounds, plan of care Follow up in 5 days
[2023-04-02 12:10] LABS: Glucose Point of Care 354 mg/dl (65-105)
--- NOTE | 2023-04-02 14:55 | PM.DS ---
DS: Admitting Diagnosis Discharge Date 04/02/23 Admitting Diagnosis Shortness of breath DS: Discharge Diagnosis Discharge Diagnosis Plan Assessment and plan (1) Influenza A: ?Code(s): J10.1 - Influenza due to other identified influenza virus with other respiratory manifestations ?Status:?Acute ?Assessment and Plan: Symptom onset:? Approximately 03/18 CXR:? Cardiomegaly, no infiltrates or opacities. No current hypoxia or supplemental O2 needs. Continue supportive measures:? Tylenol, Zofran, Mucinex Out of window for Tamiflu.? Consider treatment for CAP if WBC continues to rise, no evidence of PNA on CXR at this time. Will be discharged today, 04/02/23 (2) Acute kidney injury superimposed on CKD: ?Code(s): N17.9 - Acute kidney failure, unspecified; N18.9 - Chronic kidney disease, unspecified ?Status:?Acute ?Assessment and Plan: Creatinine previously 1.8 on 01/29/2023, currently 2.3.? BUN 37, GFR 29.? Given current nausea vomiting and diarrhea, suspect patient is somewhat dry.? Will give small bolus of IV fluids, but continue diuretic.? Reassess labs in a.m.. (3) CHF (congestive heart failure): ?Code(s): I50.9 - Heart failure, unspecified ?Status:?Acute ?Assessment and Plan: No lower extremity edema on exam, however diffuse crackles throughout lung wells.? CXR showed cardiomegaly.? Appears dry on exam.? Will give slow infusion of 500 mils.? Albumin slightly low at 3.3, will give 12.5 G x1. Continue home diuretic.? Monitor I&Os.? Daily weights. (4) Type 2 diabetes mellitus with hyperglycemia: ?Qualifiers: ?Diabetes mellitus custodial insulin use:?without predatory animal exterminator use? Qualified Code(s):?E11.65 - Type 2 diabetes mellitus with hyperglycemia ?Code(s): E11.65 - Type 2 diabetes mellitus with hyperglycemia ?Status:?Acute ?Assessment and Plan: Hypoglycemia protocol POC blood glucose ACHS home medication resumed/held - continue home glipizide correct regimen ordered - low dose TIDWM and HS A1C 8.3% on 01/25/2023 Plan Home Meds/Chronic Conditions -continued home amlodipine, atorvastatin, carvedilol, gabapentin, Mucinex, melatonin, fish oil, omeprazole, paroxetine, MiraLax, Altace. Diet:? Diabetic GI Prophylaxis:? Continue home omeprazole DVT Prophylaxis:? SCDs, Lovenox 30 Lines: pIV Code Status: Full Code DS: Summary Hospital Course Reason for hospitalization: Dyspnea Hospital Course: 62 y/o M presents here with SOB, cough, congestion, and weakness with PMH of CKD, bipolar, CVA with residual left-sided weakness, CAD, neuropathy, GERD, HF w/pEF, HTN, DM, NE, PAD, pAFib, and vascular dementia. Patient presented here from home with complaints of shortness of breath for the past week.? This has been accompanied by cough, congestion, weakness, and N/V/D.? Cough has been productive, nonbloody.? Denies any current fevers.? States the weakness has been generalized, nonfocal.? No dysarthria or facial droop.? No known sick contacts.? At ED arrival patient was afebrile, non tachycardic, increased respiratory rate, with blood pressure of 182/65, 95% on room air.? Workup revealed patient to be Flu A+.? Labs revealed an elevated white count at 14.7, stable but chronic anemia with hemoglobin at 12.2, elevated creatinine superimposed on CKD, with slightly increased BNP from baseline.? ABG showed low pO2 and O2 sat of 91.8% on RA.? CXR showed no acute opacities, no effusions or pneumothorax, and cardiomegaly.? Patient initially reported increased lower extremity swelling to the ED, upon further investigation patient reports that his left lower extremity has been more swollen over the past year but has had no real changes since his last admission.? No new abdominal swelling.? Reports he is currently feeling a little bit better. He was weaned of his oxygen dependence. He was recommended SNF for physical rehabilitation but refused and requested to go home. He will be discharged t
== END 2023-04-02 16:30 | disposition home health service (06) | DRG 193 ==
LOC: ANHED 16:41 → ANH2MED 17:22
PROVIDERS: Internal Medicine; Nurse Practitioner; Student in an Organized Health Care Education/Training Program; Admitting Provider General Practice; Emergency Provider Emergency Medicine; PCP Internal Medicine; Visit Provider Internal Medicine
DX: J10.1 Influenza due to other identified influenza virus with other respiratory manifestations (principal); I50.33 Acute on chronic diastolic (congestive) heart failure; J96.01 Acute respiratory failure with hypoxia; I13.0 Hypertensive heart and chronic kidney disease with heart failure and stage 1 through stage 4 chronic kidney disease, or unspecified chronic kidney disease; I69.354 Hemiplegia and hemiparesis following cerebral infarction affecting left non-dominant side; N17.9 Acute kidney failure, unspecified; E11.65 Type 2 diabetes mellitus with hyperglycemia; F31.9 Bipolar disorder, unspecified; B95.7 Other staphylococcus as the cause of diseases classified elsewhere; E11.22 Type 2 diabetes mellitus with diabetic chronic kidney disease; I25.10 Atherosclerotic heart disease of native coronary artery without angina pectoris; I48.0 Paroxysmal atrial fibrillation; N18.30 Chronic kidney disease, stage 3 unspecified; E11.42 Type 2 diabetes mellitus with diabetic polyneuropathy; K21.9 Gastro-esophageal reflux disease without esophagitis; R00.1 Bradycardia, unspecified; I73.9 Peripheral vascular disease, unspecified; D64.9 Anemia, unspecified; F01.50 Vascular dementia, unspecified severity, without behavioral disturbance, psychotic disturbance, mood disturbance, and anxiety; Z20.822 Contact with and (suspected) exposure to COVID-19; I25.2 Old myocardial infarction; Z99.3 Dependence on wheelchair; Z95.1 Presence of aortocoronary bypass graft; Z95.5 Presence of coronary angioplasty implant and graft; Z95.820 Peripheral vascular angioplasty status with implants and grafts; Z79.4 Long term (current) use of insulin
CPT/HCPCS: 36415; 36600; 71045; 80048; 80053; 81001; 82565; 82805; 82948; 83036; 83605; 83735; 83880; 84132; 85025; 85027; 85610; 85730; 86140; 87040; 87147; 87181; 87186; 87637; 93005; 94640; 96365; 96372; 96374; 96375; 96376; 97161; 97166; 99285; A9270; G0378; J0290; J0360; J1650; J1815; J1940; J2920; J3370; J7120; P9047

== ENCOUNTER 2023-07-29 16:14 | Inpatient (IN) | payer MEDICARE, SELFPAY ==
[2023-07-29] VITALS (16 sets, daily range): BP systolic 109–167; BP diastolic 54–67; PULSE 60–83; RESP 24–32; TEMP 37–37.7; O2SAT 92–100
--- NOTE | ~2023-07-29 | XR_ITS ---
MODIFIED ESOPHAGRAM HISTORY: Concern for aspiration TECHNIQUE: Modified barium esophagram was performed on 07/31/2023. I administered fluoroscopy and perf ormed the exam with speech pathologist. Patient was seated for lateral fluoroscopic imaging for mack stion of thin liquids, pudding, solids and quantified amounts, followed by thin liquids in uncontroll ed amounts. This was recorded on tape. A single fluoroscopic spot image was also recorded. The DAP fo r this procedure was 0.827 Gycm2. The amount of fluoroscopy time used during this procedure was 1.4 m inutes. FINDINGS: Oral stage: Adequate function. Pharyngeal stage: Adequate function. Cervical/esophageal stage: Adequate function. IMPRESSION: Patient tolerated regular consistency oral feedings in the upright position. Please inna elate with speech pathologist findings and specific feeding recommendations. Reviewed, dictated and finalized at location A. IMPRESSION: Patient tolerated regular consistency oral feedings in the upright position. Please correlate with speech pathologist findings and specific feedi ng recommendations.
--- NOTE | ~2023-07-29 | NM_ITS ---
EXAMINATION: NM pulmonary perfusion DATE: 07/30/2023 13:11 INDICATION: Shortness of breath TECHNIQUE: 22.7 mCi xenon-133 by inhalation and 5.0 mCi Tc-99m MAA by intravenous route. Scintigraph ic images of the chest were obtained. COMPARISON: Chest radiograph dated 07/29/2023 FINDINGS: There is homogeneous radiotracer activity throughout the lungs on the single breath ventilation seque nce. There is relatively homogeneous perfusion throughout the lungs. No discrete ventilation and per fusion mismatch is identified. IMPRESSION: 1. Low probability for pulmonary embolism. Reviewed, dictated and finalized at location B.
--- NOTE | ~2023-07-29 | XR_ITS ---
EXAMINATION: XR chest 1V portable Exam Date/Time: 07/29/2023 16:55 CDT HISTORY: shortness of breath Comparison: 03/24/2023. RESULT: Lines, tubes, and devices: Sternotomy wires, and inferior wire is fractured but remains in stable po sition. Lungs and pleura: Low volumes crowding. Patchy bilateral mid and lower lung airspace disease. Cardiomediastinal silhouette: Stable. Other: No acute osseous or upper abdominal finding. IMPRESSION: Patchy bilateral mid and lower lung airspace disease may represent edema, atelectasis, or infection. Reviewed, dictated and finalized at location K. IMPRESSION: Patchy bilateral mid and lower lung airspace disease may represent edema, atele ctasis, or infection.
--- NOTE | 2023-07-29 16:17 | ECG_ITS ---
SEE SCANNED COPY FOR CONFIRMED REPORT MTDD
[2023-07-29 16:31] LABS: Alveolar/Arterial O2 Gradient 608.7 mmHg; Base Excess ABG -6.1 mEq/l (+/-2.0); Carboxyhemoglobin 0.2 % THb (0-2.0); HCO3 ABG 18.3 mEq/l (22.0-26.0); Methemoglobin ABG 0.2 %THb (0-1.5); Modified Allen's Test Pass; Oxygen Content ABG 14.9 %vol (16.0-22.0); Oxygen Saturation ABG 94.2 % (95.0-100.0); Oxyhemoglobin 93.6 % THb (90.0-100.0); PCO2 ABG 32.5 mmHg (35.0-45.0); PO2 ABG 71.8 mmHg (80.0-100.0); PO2 FiO2 Ratio Arterial Blood 0.72 %; Site Drawn RIGHT RADIAL; Total Hemoglobin 11.3 g/dL (12.0-18.0); pH ABG 7.368 (7.350-7.450)
[2023-07-29 16:32] LABS: Device NON-INVASIVE VENT; Fractional Inspired Oxygen 60 %; Non-Invasive Expiratory Pressure 8 CMH2O; Non-Invasive Inspiratory Pressure 16 CMH2O; Non-Invasive Vent Rate 18 /MIN
[2023-07-29 16:46] LABS: Hemoglobin 10.7 g/dL (14.0-18.0); Mean Corpuscular HGB Conc 32.4 g/dl (32-36); Mean Corpuscular Hemoglobin 28.1 pg (26-34); Mean Corpuscular Volume 86.6 fl (80-100); Mean Platelet Volume 10.9 fl (7.4-10.4); Platelet Count Result 213 k/mm3 (150-375); Red Blood Count 3.81 M/mm3 (4.6-6.20); Red Cell Distribution Width 13.6 % (11.5-14.5); White Blood Count 21.6 K/mm3 (4.5-10.0)
[2023-07-29 16:57] LABS: INR 1.2; Prothrombin Time 16.2 Seconds (11.1-14.7)
[2023-07-29 16:58] LABS: Partial Thromboplastin Time 35.5 Seconds (22.3-36.8)
[2023-07-29 17:00] LABS: Lactic Acid Reflex 1.1 mmol/L (0.7-2.0)
[2023-07-29 17:01] LABS: Alanine Aminotransferase 12 U/L (6-50); Albumin Level 3.5 g/dL (3.5-5.1); Alkaline Phosphatase 98 U/L (38-126); Anion Gap 11 mmol/L (4-12); Aspartate Amino Transferase 23 U/L (17-59); Bilirubin,Total 0.5 mg/dL (0.2-1.3); Blood Urea Nitrogen 47 mg/dL (9-20); Calcium 8.5 mg/dL (8.4-10.2); Carbon Dioxide 17 mmol/L (22-30); Chloride 104 mmol/L (98-107); Estimated Glomerular Filt Rate 26; Glucose 124 mg/dL (65-110); Sodium 132 mmol/L (137-145)
--- NOTE | 2023-07-29 17:09 | ED.SOB ---
HPI - SOB/Dyspnea General Chief Complaint: Shortness of Breath/Dyspnea Stated Complaint: sob Time Seen by Provider: 07/29/23 16:17 History of Present Illness HPI Narrative: Patient is an 62-year-old male who presents ER by EMS for shortness of breath. Found to be hypoxic for EMS and placed him on BiPAP. Patient reports he has been having shortness of breath worsening over last 3 days. He has audible rales from the door of the room. He reports he has had a few episodes of diarrhea and emesis. Unsure if he aspirated on emesis. No new lower extremity edema. Denies fevers or chills or sweats. He is without chest pain. Related Data Home Medications Medication Instructions Recorded Confirmed omeprazole 20 mg capsule,delayed 20 mg PO DAILY 03/04/19 03/24/23 release paroxetine HCl 20 mg tablet 40 mg PO DAILY 03/04/19 03/24/23 ramipril 10 mg capsule 10 mg PO DAILY 03/04/19 03/24/23 glipizide 5 mg tablet 10 mg PO BID 09/14/22 03/24/23 amlodipine 5 mg tablet (Norvasc) 5 mg PO QPM 01/25/23 03/24/23 guaifenesin 600 mg tablet, 600 mg PO DAILY 03/24/23 03/24/23 extended release 12 hr (Mucinex) omega 8-fcx-lno-fish oil 60 mg-90 1 cap PO DAILY 03/24/23 03/24/23 mg-500 mg capsule (Fish Oil) insulin degludec 100 unit/mL (3 20 unit subcut HS 03/31/23 03/31/23 mL) subcutaneous pen (Tresiba FlexTouch U-100 insulin) Allergies Allergy/AdvReac Type Severity Reaction Status Date / Time No Known Allergies Allergy Verified 01/25/23 13:36 [facility] Past Medical History Medical History (Updated 07/29/23 @ 19:33 by London Mendez MD) Bipolar disease, chronic Cerebrovascular accident Multiple strokes with residual left-sided weakness. Chronic kidney disease, stage 3 Coronary artery disease Diabetic peripheral neuropathy Gastroesophageal reflux disease Heart failure with preserved ejection fraction Hypertension Insulin dependent type 2 diabetes mellitus Myocardial infarction Paroxysmal atrial fibrillation Peripheral artery disease Physical deconditioning Vascular dementia Surgical History Surgical History History of cardiac catheterization History of coronary artery bypass graft x 3 (11/2001) History of coronary artery stent placement (2018) History of vascular surgery (2012) Bilateral lower extremity stents two stents. Family History Family History Mother Acute myocardial infarction Cerebrovascular accident Diabetes mellitus Hypertension Sibling Acute myocardial infarction AIDS Sibling AIDS Social History Social History Social History: Surrogate medical decision maker: Maite Rendon, spouse. Code status: Smoking status: Never smoker Second hand tobacco smoke exposure: Yes Alcohol intake: former Substance use: never Substance use type: does not use Do You Feel Safe in your Home?: Yes Lack of Transportation: YES Lack of Food: Sometimes True Current Housing: I Have Housing Concerned About Future Housing: No Difficulty Paying Gas/Electric Bills: YES Difficulty Paying for Meds: YES Currently Unemployed: No Education: High School Diploma/GED Difficulty w/ Childcare or Family Care: No Additional living arrangements comments: Lives with spouse. Spiritual care concerns: No Agree to blood products: Yes Exam Narrative: GENERAL: Chronically ill-appearing, well-nourished, and in no acute distress. HEAD: Normocephalic, atraumatic. EYES: PERRL and EOMI. ENT: Nares clear, no rhinorrhea or epistaxis. Mucous membranes moist. NECK: Supple. CHEST: Coarse rales bilaterally with increased respiratory rate.. HEART: Regular rate and rhythm. Normal peripheral pulses. ABDOMEN: Soft, nontender, nondistended. EXTREMITIES: no deformity, no edema. SKIN: Warm, dry, no rash. NEURO: Alert and oriented x3. PS
[2023-07-29 17:10] LABS: NT Pro B Type Natriuretic Pept 5380 pg/mL (19.9-100)
[2023-07-29 17:42] LABS: Band Neutrophils Percent 9 % (0-6); Lymphocytes Absolute Manual 0.64 K/mm3 (1.1-4.5); Monocytes Absolute Manual 0.43 K/mm3 (0.1-0.90); Monocytes Percent Manual 2 % (3-9); Neutrophils Absolute Manual 20.52 K/mm3 (1.3-6.7); Neutrophils Percent Manual 86 % (46-73); Platelet Estimate Adequate (Adequate); Schistocytes None Seen; Total Cells Counted 100
[2023-07-29] MEDS: CLINDAMYCIN 600 MG/D5W 50 ML 600 MG/50 ML PIGGYBACK 100 MG IVPB (19:15)
[2023-07-29] MEDS: SODIUM CHLORIDE 0.9% IV 1,000 ML 100 ML IV CONT (19:44)
[2023-07-29] MEDS: metroNIDAZOLE 500 MG/ISO 100ML 500 MG/100 ML BAG 100 MG IVPB (19:45)
[2023-07-29] MEDS: IPRATROPIUM 0.5 MG/ALBUTEROL SULFATE 2.5 MG AMPUL.NEB 3 ML INHALATION (21:00)
--- NOTE | 2023-07-29 23:17 | PM.IMHP ---
H&P: HPI History of Present Illness Date/Time: 07/29/23 22:45 Chief Complaint: Shortness of breath. Narrative: This is a 62-year-old male with history of strokes, vascular dementia, coronary artery disease status post 3 vessel coronary artery bypass in 2001, heart failure with preserved ejection fraction, paroxysmal atrial fibrillation not on chronic anticoagulation, peripheral arterial disease, hypertension, chronic kidney disease, and insulin-dependent type 2 diabetes mellitus who presented to the emergency department for evaluation of shortness of breath. He reports increasing shortness of breath over the past 3 days with mild swelling, orthopnea, and cough which has not really been productive. Not long prior to arrival his breathing became significantly worse and his is concerned that he may have aspirated. SpO2 was 65% on room air on EMS arrival. He was placed on BiPAP on arrival to the ED due to work of breathing. At the time my evaluation he reports feeling a lot better and thinks he can be come off of the BiPAP. He denies fever, chills, sweats, chest and pleuritic pain, palpitations, sensations of racing heart, syncope, near syncope, nausea, vomiting, diarrhea, and calf pain. In the ED: He was afebrile on arrival. SpO2 has been in upper 90s to 100% on BiPAP. Labs were significant for WBC count of 21.6 with 9% bands, hemoglobin 10.7, sodium 132, BUN 47, creatinine 2.50, proBNP 5380. Chest x-ray showed patchy bilateral mid and lower lung airspace disease which may be edema, atelectasis, or infection. He was given a nebulizer treatment and a dose of metronidazole, clindamycin, and ceftriaxone for suspected aspiration. He is being admitted in this setting for further treatment. Review of Systems Review of Systems: 12 systems were reviewed and are negative except for as per HPI. COUNT INCLUDES THE [facility] Past Medical History Medical History Bipolar disease, chronic Cerebrovascular accident Multiple strokes with residual left-sided weakness. Chronic kidney disease, stage 3 Coronary artery disease Diabetic peripheral neuropathy Gastroesophageal reflux disease Heart failure with preserved ejection fraction Hypertension Insulin dependent type 2 diabetes mellitus Myocardial infarction Paroxysmal atrial fibrillation Peripheral artery disease Physical deconditioning Vascular dementia Surgical History Surgical History History of cardiac catheterization History of coronary artery bypass graft x 3 (11/2001) History of coronary artery stent placement (2018) History of vascular surgery (2013) Bilateral lower extremity stents two stents. Family History Family History Mother Acute myocardial infarction Cerebrovascular accident Diabetes mellitus Hypertension Sibling Acute myocardial infarction AIDS Sibling AIDS Social History Social History Social History: Surrogate medical decision maker: Maite Julieta, spouse. Code status: Smoking status: Never smoker Second hand tobacco smoke exposure: No Alcohol intake: never Substance use: never Substance use type: does not use Do You Feel Safe in your Home?: Yes Lack of Transportation: No Lack of Food: Never True Current Housing: I Have Housing Concerned About Future Housing: No Difficulty Paying Gas/Electric Bills: No Difficulty Paying for Meds: No Currently Unemployed: No Education: High School Diploma/GED Difficulty w/ Childcare or Family Care: No Additional living arrangements comments: Lives with spouse. Spiritual care concerns: No Agree to blood products: Yes Meds Home Medications and Allergies Home Medications Medication Instructions Recorded Confirmed Type omeprazole 20 mg capsule,delayed 20 mg PO DAILY 12
[2023-07-30] VITALS (20 sets, daily range): BP systolic 127–155; BP diastolic 46–71; PULSE 55–71; RESP 18–25; TEMP 36.3–36.5; O2SAT 92–100; BMI 28.2
[2023-07-30] MEDS: AZITHROMYCIN 500 MG/NS 250 ML 500 MG/250 ML BAG 250 MG IVPB ×2 (00:27→23:23)
[2023-07-30] MEDS: FUROSEMIDE INJ 40 MG/4 ML VIAL IV PUSH (00:27)
--- NOTE | 2023-07-30 00:45 | PC.NURSE ---
Patient states he is incontinent. Patient agrees to have male purewick placed.
[2023-07-30 01:39] LABS: D Dimer 3.58 ug/mL (<0.48)
[2023-07-30] MEDS: IPRATROPIUM 0.5 MG/ALBUTEROL SULFATE 2.5 MG AMPUL.NEB 3 ML INHALATION ×4 (02:05→19:03)
[2023-07-30 02:15] LABS: Glucose Point of Care 151 mg/dl (65-105)
--- NOTE | 2023-07-30 03:59 | PC.NURSE ---
Patient has not urinated since the Furosemide has been given at 0027. Patient had no c/o pain from not being able to urinate. Patient was bladder scanned and a reading of 857mL was obtained. Notified hospitalist Dr. Goss. Dr. Goss VRBO a urinary catheter.
[2023-07-30 04:36] LABS: Appearance Urine Turbid (Clear); Bacteria Urine None Seen /hpf; Bilirubin Urine Negative (Negative); Blood Urine 1+ (Negative); Color Urine Yellow (Yellow); Glucose Urine UA Trace mg/dL (Negative); Ketones Urine Negative (Negative); Leukocyte Esterase Ur Trace LEU/UL (Negative); Need Manual Microscopic Reviewed; Nitrate Urine Negative (Negative); Non Pathogenic Casts >20; Protein Urine 3+ mg/dL (Negative); RBC Urine 0-2 /hpf (0-2); Specific Grav Ur 1.012 (1.001-1.035); Squamous Epithelial Cell Urine Few /hpf (Few); Urobilinogen Urine 0.2 mg/dL (<2.0)
[2023-07-30 04:44] LABS: Add Urine Microscopic? YES
[2023-07-30 05:24] LABS: Hematocrit 28.5 % (42.0-52.0); Hemoglobin 9.1 g/dL (14.0-18.0); Mean Corpuscular HGB Conc 31.9 g/dl (32-36); Mean Corpuscular Volume 87.7 fl (80-100); Mean Platelet Volume 11.1 fl (7.4-10.4); Platelet Count Result 181 k/mm3 (150-375); Red Blood Count 3.25 M/mm3 (4.6-6.20); Red Cell Distribution Width 13.3 % (11.5-14.5); White Blood Count 20.6 K/mm3 (4.5-10.0)
--- NOTE | 2023-07-30 05:43 | PC.NURSE ---
OK PER DR TORRES TO CHANGE PATIENT TO MED TELE AT THIS TIME.
[2023-07-30 05:46] LABS: Anion Gap 9 mmol/L (4-12); Blood Urea Nitrogen 51 mg/dL (9-20); Calcium 8.3 mg/dL (8.4-10.2); Carbon Dioxide 19 mmol/L (22-30); Chloride 108 mmol/L (98-107); Estimated CRCL calculation 29 ml/min; Estimated Glomerular Filt Rate 25; Glucose 149 mg/dL (65-110); Magnesium 1.6 mg/dL (1.6-2.3); Potassium 3.8 mmol/L (3.4-5.0); Sodium 136 mmol/L (137-145)
[2023-07-30 05:59] LABS: NT Pro B Type Natriuretic Pept 9860 pg/mL (19.9-100)
--- NOTE | 2023-07-30 06:57 | ADMGEN ---
This patient, Robert Rendon, was admitted to Medical Room 346-01. Patient/family oriented to hospital policies and general routines including ID bracelet, bed and alarms, visiting hours, pain management, procedures, bathroom and other care routines, personal items, smoking policy, room service/diet, and visiting hours. Information on how to activate the Rapid Response Team has been discussed. Patient/Family are encouraged to report perceived risks to care and to ask questions if they do not understand what they are told or what they should do.
[2023-07-30 08:54] LABS: Glucose Point of Care 119 mg/dl (65-105)
[2023-07-30] MEDS: metroNIDAZOLE 500 MG/ISO 100ML 500 MG/100 ML BAG 100 MG IVPB ×2 (09:49→20:17)
--- NOTE | 2023-07-30 10:12 | PM.IMPN ---
Progress Note: A&P Assessment and Plan (1) Acute respiratory failure with hypoxia: Code(s): J96.01 - Acute respiratory failure with hypoxia Status: Acute (2) Aspiration pneumonia: Code(s): J69.0 - Pneumonitis due to inhalation of food and vomit Status: Acute (3) Heart failure with preserved ejection fraction: Qualifiers: Heart failure chronicity: acute on chronic Qualified Code(s): I50.33 - Acute on chronic diastolic (congestive) heart failure Code(s): I50.30 - Unspecified diastolic (congestive) heart failure Status: Acute (4) Paroxysmal atrial fibrillation: Code(s): I48.0 - Paroxysmal atrial fibrillation Status: Chronic (5) Chronic kidney disease, stage 3: Qualifiers: Chronic kidney disease stage 3 subtype: stage 3b (GFR 30-44) Qualified Code(s): N18.32 - Chronic kidney disease, stage 3b Code(s): N18.30 - Chronic kidney disease, stage 3 unspecified Status: Chronic (6) Insulin dependent type 2 diabetes mellitus: Code(s): E11.9 - Type 2 diabetes mellitus without complications; 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 Pulmonary embolism is also consideration given his limited mobility from prior strokes and due to the fact that he is not on anticoagulation. SpO2 was 65% on EMS arrival and he was placed on BiPAP. He seems much more comfortable now and we will trial off the BiPAP. Continue empiric antibiotics for possible aspiration. Stop IV fluids and administer 1 dose of IV furosemide. D-dimer ordered and if significantly elevated he will need a V/Q scan. Enoxaparin 1 milligram/kilogram x1 will be given pending those results. He will be NPO for now pending swallow evaluation tomorrow. Creatinine is a bit elevated from baseline and will be monitored closely. Bladder scan ordered to rule out urinary retention. He is currently in a sinus rhythm. Continue basal insulin. Initiate sliding scale insulin, Accu-Cheks, and hypoglycemic protocol. The rest of his home medications will be reviewed and resumed as appropriate 07/29 Patient is off of BiPAP, patient is on 3 L oxygen now Suspecting aspiration pneumonia, need to rule out PE Order V/Q scan, patient has CKD stage 4 continue current antibiotic is azithromycin ceftriaxone and Flagyl speech evaluation hold Lasix now Continue rest medication V/Q scan suggests low probability of pulmonary embolism Subjective Date/time seen: 07/30/23 10:12 Interval history: I saw and exam patient today, patient is alert, not oriented x3, Patient was chewing slowly, patient has history of stroke with residual weakness of left arm, and some slurred speech. Per nurse report, patient did not have a new neural symptom over the night Exam Narrative: GENERAL: Pleasant, in no acute distress. Well-nourished. - EYES: EOMI. Anicteric. - HENT: Moist mucous membranes. - LUNGS: post breath sound bilaterally, - CARDIOVASCULAR: Regular rate and rhythm. No murmur. No JVD. - ABDOMEN: Soft, non-tender and non-distended. No palpable masses. - EXTREMITIES: No edema. Peripheral pulses 2+. Non-tender. - NEUROLOGIC: No focal neurological deficits. CN II-XII grossly intact. left-sided residual weakness - PSYCHIATRIC: Awake, Alert and oriented x 3. Appropriate mood and affect. - SKIN: No rashes or lesions. Warm. - LYMPH: No cervical lymphadenopathy. Objective Data Vital Signs Vital Signs: Vital Signs - 24 hr 07/29/23 16:18 07/29/23 16:21 07/29/23 16:21 Temperature Pulse Rate 82 Respiratory Rate 30 H Blood Pressure Pulse Oximetry 98 96 96 Oxygen Delivery BiPAP BiPAP BiPAP Oxygen Flow Rat
[2023-07-30 12:17] LABS: Glucose Point of Care 274 mg/dl (65-105)
[2023-07-30] MEDS: INSULIN ASPART (*BKC) 100 UNITS/ML SUB-Q ×3 (13:24→20:17)
[2023-07-30 17:21] LABS: Glucose Point of Care 226 mg/dl (65-105)
[2023-07-30 21:21] LABS: Glucose Point of Care 206 mg/dl (65-105)
[2023-07-31] VITALS (17 sets, daily range): BP systolic 156–186; BP diastolic 60–69; PULSE 48–74; RESP 16–20; TEMP 36.8–37.3; O2SAT 88–98; BMI 27.0
[2023-07-31] MEDS: IPRATROPIUM 0.5 MG/ALBUTEROL SULFATE 2.5 MG AMPUL.NEB 3 ML INHALATION ×3 (02:10→14:34)
[2023-07-31 08:22] LABS: Glucose Point of Care 122 mg/dl (65-105)
[2023-07-31] MEDS: metroNIDAZOLE 500 MG/ISO 100ML 500 MG/100 ML BAG 100 MG IVPB ×2 (08:40→20:03)
--- NOTE | 2023-07-31 09:29 | PM.IMPN ---
Progress Note: A&P Assessment and Plan (1) Acute respiratory failure with hypoxia: Code(s): J96.01 - Acute respiratory failure with hypoxia Status: Acute Assessment and Plan: New oxygen requirement Initially on BiPAP. Now on 3 L nasal cannula D-dimer elevated, V/Q negative for PE (2) Aspiration pneumonia: Code(s): J69.0 - Pneumonitis due to inhalation of food and vomit Status: Acute Assessment and Plan: Rocephin, Flagyl and azithromycin for possible aspiration pneumonia DuoNebs scheduled Q 6 Leukocytosis of 21.6 on arrival. White count down trending to 16.4 today Afebrile Continue to wean oxygen Incentive spirometry ordered Speech evaluated and patient passed modified barium swallow. Continuing regular diet. (3) Heart failure with preserved ejection fraction: Qualifiers: Heart failure chronicity: acute on chronic Qualified Code(s): I50.33 - Acute on chronic diastolic (congestive) heart failure Code(s): I50.30 - Unspecified diastolic (congestive) heart failure Status: Acute Assessment and Plan: TOMY from 09/19/22 1.? Preserved LV systolic function EF 55-60% with moderate LVH with asymmetric septal hypertrophy. ?2.? Well-circumscribed 1.7 x 1.4 cm calcified echodensity most likely consistent with severe mitral annular calcification without mobile elements identified clearly not involving the posterior mitral valve leaflet. ?3.? Left atrial appendage? technically difficult visualization but without clearly identified thrombus or mobile echodensity with preserved appendage velocities of 50 centimeters/second. ?4. ? Linear echodensity in the right atrium consistent with remnant Eustachian valve. ?5. ? No clearly identified vegetation or mobile echodensity on this study 07/30: BNP 9860 on arrival Repeat ECHO now Received IV lasix 40 mg once Home lasix on hold given FARHAN and the fact that he appear euvolemic (4) Paroxysmal atrial fibrillation: Code(s): I48.0 - Paroxysmal atrial fibrillation Status: Chronic Assessment and Plan: Continue Coreg Enoxaparin for DVT prophylaxis, renally dosed (5) Chronic kidney disease, stage 3: Qualifiers: Chronic kidney disease stage 3 subtype: stage 3b (GFR 30-44) Qualified Code(s): N18.32 - Chronic kidney disease, stage 3b Code(s): N18.30 - Chronic kidney disease, stage 3 unspecified Status: Chronic Assessment and Plan: Creatinine 2.6 on admission Creatinine 2.10 today Holding Lasix (6) Insulin dependent type 2 diabetes mellitus: Code(s): E11.9 - Type 2 diabetes mellitus without complications; 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 He is currently on 3 L of oxygen as normally on room air home. He denies dyspnea at rest. He is alert and oriented x4. He appears euvolemic. Lung sounds are coarse. Exam Narrative: General: well appearing, appears stated age. HEENT: normocephalic, atraumatic. Mucous membranes moist. EOMI, PERRLA, bilateral sclera anicteric, no conjunctival injection. Neck supple without JVD, lymphadenopathy, or bruit. Respiratory: c coarse and diminished auscultation bilaterally. No rales/rhonic/wheezes. Cardiovascular: Regular rate and rhythm, normal S1-S2 upon auscultation. No murmurs, rubs, or clicks. PMI is nondisplaced, capillary refill less than 3 second. Abdomen: Soft, round, no pulsatile masses, nondistended and nontender. No rebound, no guarding. No CVA tenderness, no hepatosplenomegaly. Bowel sounds present to all four quadrants. No high pitch or tinkling sounds, resonant to percussion. Extremities: No cyanosis, clubbing, or edema present. Pulses are palpable 2/
--- NOTE | 2023-07-31 09:52 | PCSTNOTE ---
Please refer to the Bedside Swallow Evaluation in the EMR. Please note, silent aspiration cannot be ruled out at bedside.
[2023-07-31 10:14] LABS: Basophils Absolute Auto 0.1 K/mm3 (0.0-0.1); Basophils Percent Auto 0.4 % (0.2-1.2); Eosinophils Absolute Auto 0.4 K/mm3 (0-0.3); Eosinophils Percent Auto 2.1 % (0-4.4); Hemoglobin 9.8 g/dL (14.0-18.0); Immature Granulocyte Absolute 0.22 K/mm3 (0.00-0.031); Immature Granulocyte Percent A 1.3 % (0-0.5); Lymphocytes Absolute Auto 1.11 K/mm3 (0.9-3.2); Lymphocytes Percent Auto 6.8 % (18.3-44.2); Mean Corpuscular HGB Conc 32.7 g/dl (32-36); Mean Corpuscular Hemoglobin 28.2 pg (26-34); Mean Corpuscular Volume 86.5 fl (80-100); Monocytes Absolute Auto 0.7 K/mm3 (0.1-0.6); Monocytes Percent Auto 4.3 % (2.6-8.5); Neutrophils Absolute Auto 13.9 K/mm3 (1.3-6.7); Neutrophils Percent Auto 85.1 % (45.5-73.1); Platelet Count Result 195 k/mm3 (150-375); Red Blood Count 3.47 M/mm3 (4.6-6.20); Red Cell Distribution Width 13.8 % (11.5-14.5); White Blood Count 16.4 K/mm3 (4.5-10.0)
[2023-07-31 10:29] LABS: Alanine Aminotransferase 12 U/L (6-50); Albumin Level 2.9 g/dL (3.5-5.1); Alkaline Phosphatase 74 U/L (38-126); Anion Gap 8 mmol/L (4-12); Aspartate Amino Transferase 21 U/L (17-59); Bilirubin,Total 0.4 mg/dL (0.2-1.3); Blood Urea Nitrogen 44 mg/dL (9-20); Carbon Dioxide 19 mmol/L (22-30); Chloride 110 mmol/L (98-107); Estimated CRCL calculation 30 ml/min; Estimated Glomerular Filt Rate 32; Glucose 184 mg/dL (65-110); Magnesium 1.7 mg/dL (1.6-2.3); Potassium 3.5 mmol/L (3.4-5.0); Sodium 137 mmol/L (137-145)
[2023-07-31 12:06] LABS: Glucose Point of Care 199 mg/dl (65-105)
--- NOTE | 2023-07-31 16:01 | PCSTNOTE ---
Please refer to the Modified Barium Swallow Evaluation in the EMR.
[2023-07-31 17:02] LABS: Glucose Point of Care 249 mg/dl (65-105)
[2023-07-31] MEDS: INSULIN ASPART (*BKC) 100 UNITS/ML SUB-Q ×2 (17:27→20:18)
[2023-07-31] MEDS: carvediloL 12.5 MG TABLET 25 MG PO (18:51)
[2023-07-31] MEDS: NIFEdipine 30 MG TAB.ER.24 60 MG PO (18:51)
[2023-07-31] MEDS: ATORVASTATIN 40 MG TABLET 80 MG PO (20:03)
[2023-07-31 20:23] LABS: Glucose Point of Care 235 mg/dl (65-105)
[2023-08-01] VITALS (17 sets, daily range): BP systolic 148–165; BP diastolic 54–59; PULSE 62–79; RESP 18; TEMP 36.1–36.4; O2SAT 91–95
--- NOTE | 2023-08-01 | ECHO_ITS ---
Patient Info Name: Robert Rendon Age: 62 years : 1960 Gender: Male Ht: 66 in Wt: 167 lbs BSA: 1.89 m2 HR: 67 bpm BP: 148 / 54 mmHg Heart Rhythm: Sinus Rhythm, Right Bundle Branch Block Technical Quality: Fair Exam Date: 08/01/2023 7:37 AM Exam Location: Echo Lab Patient Status: Inpatient Admit Date: 07/31/2023 Staff Ordering Physician: Alma Marc APRN Organ Tuner Electronic: Homero Schneider RDCS Attending Provider: Dayan Butler MD Referring Physician: Monico PINEDO; Exam Type: CA echo doppler color flow Study Info Indications - chf exacerbation R06.02 - Shortness of breath Complete two-dimensional, color flow and Doppler transthoracic echocardiogram is performed with contrast to opacify the left ventricle and to improve the deliniation of the left ventricle endocardial borders. Contrast/Agitated Saline Contrast/Ag. Saline: Definity Amount: 3.00 ml Summary 1. Left ventricular chamber dimension is normal. 2. Left ventricular systolic function is normal, estimated at 60-65%. 3. There is moderately increased left ventricular wall thickness. 4. Left ventricular septal wall motion is abnormal with septal motion related to bundle branch block. 5. The left ventricular diastolic function is grade I diastolic dysfunction. 6. Left atrial chamber dimension is mildly enlarged. 7. The mitral valve annulus is severely calcified. 8. There is mild mitral valve regurgitation. Left Ventricle Left ventricular chamber dimension is normal. Left ventricular systolic function is normal, estimated at 60-65%. There is moderately increased left ventricular wall thickness. Left ventricular septal wall motion is abnormal with septal motion related to bundle branch block. The left ventricular diastolic function is grade I diastolic dysfunction. Right Ventricle Right ventricular chamber dimension is not well visualized. Left Atria Left atrial chamber dimension is mildly enlarged. Right Atria Right atrial chamber dimension is not well visualized. Atrial Septum Intact interatrial septum visualized by color flow imaging. Aortic Valve The aortic valve is not well visualized. There is no aortic valve stenosis. There is no aortic valve regurgitation. Pulmonic Valve The pulmonic valve is not well visualized. There is trace pulmonic regurgitation. Mitral Valve There is mild mitral valve regurgitation. The mitral valve annulus is severely calcified. Tricuspid Valve There is trace tricuspid valve regurgitation. Pericardium/Pleural There is no pericardial effusion. Inferior Vena Cava Inferior vena cava is not well visualized. Aorta The aortic root size at the sinus of Valsalva is normal. Report Signatures
[2023-08-01] MEDS: AZITHROMYCIN 500 MG/NS 250 ML 500 MG/250 ML BAG 250 MG IVPB ×2 (00:32→23:18)
[2023-08-01] MEDS: PERFLUTREN LIPID MICROSPHERES 1.5 ML VIAL DILUTED TO 10 ML TOTAL VOLUME IV PUSH (08:00)
[2023-08-01 08:26] LABS: Glucose Point of Care 171 mg/dl (65-105)
[2023-08-01] MEDS: ASPIRIN 325 MG ENTERIC TABLET PO (08:38)
[2023-08-01] MEDS: PARoxetine 20 MG TABLET 40 MG PO (08:38)
[2023-08-01] MEDS: CLOPIDOGREL BISULFATE 75 MG TABLET PO (08:38)
[2023-08-01] MEDS: NIFEdipine 30 MG TAB.ER.24 60 MG PO (08:38)
[2023-08-01] MEDS: carvediloL 12.5 MG TABLET 25 MG PO ×2 (08:38→17:11)
[2023-08-01] MEDS: ramipriL 5 MG CAPSULE 10 MG PO (08:38)
[2023-08-01] MEDS: metroNIDAZOLE 500 MG/ISO 100ML 500 MG/100 ML BAG 100 MG IVPB ×2 (08:39→22:04)
[2023-08-01] MEDS: ENOXAPARIN 30 MG/0.3 ML SYRINGE SUB-Q (08:39)
[2023-08-01] MEDS: IPRATROPIUM 0.5 MG/ALBUTEROL SULFATE 2.5 MG AMPUL.NEB 3 ML INHALATION ×2 (09:09→14:10)
--- NOTE | 2023-08-01 10:02 | P.PNIM_ITS ---
Progress Note: A&P Assessment and Plan (1) Acute respiratory failure with hypoxia: Code(s): J96.01 - Acute respiratory failure with hypoxia Status: Acute Assessment and Plan: New oxygen requirement * Initially on BiPAP. Now on 3 L nasal cannula * D-dimer elevated, V/Q negative for PE (2) Aspiration pneumonia: Code(s): J69.0 - Pneumonitis due to inhalation of food and vomit Status: Acute Assessment and Plan: * Rocephin, Flagyl and azithromycin for possible aspiration pneumonia * Duo Nebs scheduled Q 6 * Leukocytosis of 21.6 on arrival. White count down trending to 16.4 today * Afebrile * Continue to wean oxygen * Incentive spirometry ordered * Speech evaluated and patient passed modified barium swallow. Continuing regular diet. 07/31: * Continue IV antibiotics as he is still requiring oxygen and sounds congested * Leukocytosis stable at 15.9, eosinophils 0.4% * Procal 1.9%. None ordered on admission. Will trend now * Add IV steroids * Added mucolytics (3) Heart failure with preserved ejection fraction: Qualifiers: Heart failure chronicity: acute on chronic Qualified Code(s): I50.33 - Acute on chronic diastolic (congestive) heart failure Code(s): I50.30 - Unspecified diastolic (congestive) heart failure Status: Acute Assessment and Plan: TOMY from 09/19/22 1.? Preserved LV systolic function EF 55-60% with moderate LVH with asymmetric septal hypertrophy. ?2.? Well-circumscribed 1.7 x 1.4 cm calcified echodensity most likely consistent with severe mitral annular calcification without mobile elements identified clearly not involving the posterior mitral valve leaflet. ?3.? Left atrial appendage? technically difficult visualization but without clearly identified thrombus or mobile echodensity with preserved appendage velocities of 50 centimeters/second. ?4. ? Linear echodensity in the right atrium consistent with remnant Eustachian valve. ?5. ? No clearly identified vegetation or mobile echodensity on this study 07/30: * BNP 9860 on arrival * Repeat ECHO now * Received IV lasix 40 mg once 07/31: * Cr back to baseline 1.9 * ECHO pending formal read * appears euvolemic * suspect BNP elevated from PNA (4) Paroxysmal atrial fibrillation: Code(s): I48.0 - Paroxysmal atrial fibrillation Status: Chronic Assessment and Plan: * Continue Coreg * Enoxaparin for DVT prophylaxis, renally dosed (5) Chronic kidney disease, stage 3: Qualifiers: Chronic kidney disease stage 3 subtype: stage 3b (GFR 30-44) Qualified Code(s): N18.32 - Chronic kidney disease, stage 3b Code(s): N18.30 - Chronic kidney disease, stage 3 unspecified Status: Chronic Assessment and Plan: * Creatinine 2.6 on admission * Creatinine 2.10 today 07/30 07/31: * Cr back to baseline, 1.9 * avoid nephrotoxic agents (6) Insulin dependent type 2 diabetes mellitus: Code(s): E11.9 - Type 2 diabetes mellitus without complications; 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 He is currently on 3 L of oxygen as armando
[2023-08-01 11:09] LABS: Basophils Absolute Auto 0.1 K/mm3 (0.0-0.1); Basophils Percent Auto 0.8 % (0.2-1.2); Eosinophils Absolute Auto 0.4 K/mm3 (0-0.3); Eosinophils Percent Auto 2.5 % (0-4.4); Hematocrit 30.3 % (42.0-52.0); Hemoglobin 9.7 g/dL (14.0-18.0); Immature Granulocyte Absolute 0.38 K/mm3 (0.00-0.031); Immature Granulocyte Percent A 2.4 % (0-0.5); Lymphocytes Absolute Auto 1.63 K/mm3 (0.9-3.2); Lymphocytes Percent Auto 10.3 % (18.3-44.2); Mean Corpuscular Hemoglobin 28.1 pg (26-34); Mean Corpuscular Volume 87.8 fl (80-100); Mean Platelet Volume 11.2 fl (7.4-10.4); Monocytes Absolute Auto 0.9 K/mm3 (0.1-0.6); Monocytes Percent Auto 5.5 % (2.6-8.5); Neutrophils Absolute Auto 12.5 K/mm3 (1.3-6.7); Neutrophils Percent Auto 78.5 % (45.5-73.1); Platelet Count Result 234 k/mm3 (150-375); Red Blood Count 3.45 M/mm3 (4.6-6.20); Red Cell Distribution Width 13.5 % (11.5-14.5); White Blood Count 15.9 K/mm3 (4.5-10.0)
[2023-08-01 11:25] LABS: Alanine Aminotransferase 11 U/L (6-50); Albumin Level 2.9 g/dL (3.5-5.1); Alkaline Phosphatase 74 U/L (38-126); Anion Gap 8 mmol/L (4-12); Aspartate Amino Transferase 19 U/L (17-59); Bilirubin,Total 0.4 mg/dL (0.2-1.3); Blood Urea Nitrogen 41 mg/dL (9-20); Carbon Dioxide 20 mmol/L (22-30); Chloride 108 mmol/L (98-107); Estimated CRCL calculation 33 ml/min; Estimated Glomerular Filt Rate 36; Glucose 211 mg/dL (65-110); Magnesium 1.8 mg/dL (1.6-2.3); Potassium 3.8 mmol/L (3.4-5.0); Sodium 136 mmol/L (137-145)
--- NOTE | 2023-08-01 11:34 | IVDEFINITY ---
Prior to administration of IV Definity the patient was educated on the risks and benefits of the imaging enhancing agent including potential adverse side effects. The patient verbalized understanding. Allergies were verified. No exclusion criteria were identified and at least one of the following inclusion criteria were met: 1) physician request, 2) patient technically difficult to image (per the [place] [employer] guidelines of two or more segments not discernable within the apical view), or 3) questionable left ventricular function. ?
[2023-08-01 11:50] LABS: Glucose Point of Care 231 mg/dl (65-105)
[2023-08-01 12:10] LABS: Procalcitonin 1.9 ng/mL
[2023-08-01] MEDS: INSULIN ASPART (*BKC) 100 UNITS/ML SUB-Q ×2 (12:46→17:12)
[2023-08-01] MEDS: ACETYLCYSTEINE 20% INHAL SOLN 800 MG/4 ML VIAL 200 MG INHALATION (14:13)
[2023-08-01 17:04] LABS: Glucose Point of Care 219 mg/dl (65-105)
[2023-08-01] MEDS: methylPREDNISolone SOD SUCC 40 MG VIAL IV PUSH ×2 (17:10→22:04)
[2023-08-01] MEDS: glipiZIDE 5 MG TABLET 10 MG PO (17:10)
[2023-08-01 21:43] LABS: Glucose Point of Care 283 mg/dl (65-105)
[2023-08-01] MEDS: ATORVASTATIN 40 MG TABLET 80 MG PO (22:03)
[2023-08-01] MEDS: guaiFENesin 12 HR 600 MG TABCR 1200 MG PO (22:04)
[2023-08-01] MEDS: INSULIN GLARGINE (*BKC) 100 UNITS/ML 12 UNITS SUB-Q (22:08)
[2023-08-02] VITALS (18 sets, daily range): BP systolic 147–163; BP diastolic 54–64; PULSE 59–74; RESP 16–18; TEMP 36.4–37; O2SAT 92–97
[2023-08-02 06:12] LABS: Basophils Absolute Auto 0.1 K/mm3 (0.0-0.1); Basophils Percent Auto 0.4 % (0.2-1.2); Hematocrit 30.6 % (42.0-52.0); Immature Granulocyte Absolute 0.72 K/mm3 (0.00-0.031); Lymphocytes Absolute Auto 0.91 K/mm3 (0.9-3.2); Lymphocytes Percent Auto 6.3 % (18.3-44.2); Mean Corpuscular HGB Conc 32.7 g/dl (32-36); Mean Corpuscular Hemoglobin 27.7 pg (26-34); Mean Corpuscular Volume 84.8 fl (80-100); Mean Platelet Volume 10.9 fl (7.4-10.4); Monocytes Absolute Auto 0.1 K/mm3 (0.1-0.6); Monocytes Percent Auto 0.8 % (2.6-8.5); Neutrophils Absolute Auto 12.6 K/mm3 (1.3-6.7); Neutrophils Percent Auto 87.5 % (45.5-73.1); Platelet Count Result 250 k/mm3 (150-375); Red Blood Count 3.61 M/mm3 (4.6-6.20); Red Cell Distribution Width 13.2 % (11.5-14.5); White Blood Count 14.4 K/mm3 (4.5-10.0)
[2023-08-02 06:29] LABS: Alanine Aminotransferase 12 U/L (6-50); Alkaline Phosphatase 99 U/L (38-126); Anion Gap 9 mmol/L (4-12); Aspartate Amino Transferase 16 U/L (17-59); Bilirubin,Total 0.5 mg/dL (0.2-1.3); Blood Urea Nitrogen 45 mg/dL (9-20); Calcium 8.1 mg/dL (8.4-10.2); Carbon Dioxide 21 mmol/L (22-30); Chloride 106 mmol/L (98-107); Estimated CRCL calculation 30 ml/min; Estimated Glomerular Filt Rate 32; Glucose 366 mg/dL (65-110); Potassium 4.2 mmol/L (3.4-5.0); Sodium 136 mmol/L (137-145)
[2023-08-02 06:42] LABS: Procalcitonin 1.4 ng/mL
[2023-08-02 08:15] LABS: Glucose Point of Care 391 mg/dl (65-105)
[2023-08-02] MEDS: IPRATROPIUM 0.5 MG/ALBUTEROL SULFATE 2.5 MG AMPUL.NEB 3 ML INHALATION ×3 (08:24→19:39)
[2023-08-02] MEDS: ACETYLCYSTEINE 20% INHAL SOLN 800 MG/4 ML VIAL 200 MG INHALATION ×3 (08:24→19:39)
[2023-08-02] MEDS: INSULIN ASPART (*BKC) 100 UNITS/ML SUB-Q ×4 (09:06→17:37)
[2023-08-02] MEDS: glipiZIDE 5 MG TABLET 10 MG PO ×2 (09:07→17:02)
[2023-08-02] MEDS: ASPIRIN 325 MG ENTERIC TABLET PO (09:07)
[2023-08-02] MEDS: NIFEdipine 30 MG TAB.ER.24 60 MG PO (09:07)
[2023-08-02] MEDS: carvediloL 12.5 MG TABLET 25 MG PO ×2 (09:08→17:02)
[2023-08-02] MEDS: PARoxetine 20 MG TABLET 40 MG PO (09:08)
[2023-08-02] MEDS: guaiFENesin 12 HR 600 MG TABCR 1200 MG PO ×2 (09:08→21:43)
[2023-08-02] MEDS: methylPREDNISolone SOD SUCC 40 MG VIAL IV PUSH (09:08)
[2023-08-02] MEDS: CLOPIDOGREL BISULFATE 75 MG TABLET PO (09:08)
[2023-08-02] MEDS: metroNIDAZOLE 500 MG/ISO 100ML 500 MG/100 ML BAG 100 MG IVPB ×2 (09:09→21:45)
[2023-08-02] MEDS: ramipriL 5 MG CAPSULE 10 MG PO (09:10)
[2023-08-02] MEDS: ENOXAPARIN 40 MG/0.4 ML SYRINGE SUB-Q (09:14)
--- NOTE | 2023-08-02 09:48 | PM.IMPN ---
Progress Note: A&P Assessment and Plan (1) Acute respiratory failure with hypoxia: Code(s): J96.01 - Acute respiratory failure with hypoxia Status: Acute Assessment and Plan: New oxygen requirement Initially on BiPAP. Now on 3 L nasal cannula D-dimer elevated, V/Q negative for PE (2) Aspiration pneumonia: Code(s): J69.0 - Pneumonitis due to inhalation of food and vomit Status: Acute Assessment and Plan: Rocephin, Flagyl and azithromycin for possible aspiration pneumonia Duo Nebs scheduled Q 6 Leukocytosis of 21.6 on arrival. White count down trending to 16.4 today Afebrile Continue to wean oxygen Incentive spirometry ordered Speech evaluated and patient passed modified barium swallow. Continuing regular diet. 07/31: Continue IV antibiotics as he is still requiring oxygen and sounds congested Leukocytosis stable at 15.9, eosinophils 0.4% Procal 1.9%. None ordered on admission. Will trend now Add IV steroids Added mucolytics (3) Heart failure with preserved ejection fraction: Qualifiers: Heart failure chronicity: acute on chronic Qualified Code(s): I50.33 - Acute on chronic diastolic (congestive) heart failure Code(s): I50.30 - Unspecified diastolic (congestive) heart failure Status: Acute Assessment and Plan: TOMY from 09/19/22 1.? Preserved LV systolic function EF 55-60% with moderate LVH with asymmetric septal hypertrophy. ?2.? Well-circumscribed 1.7 x 1.4 cm calcified echodensity most likely consistent with severe mitral annular calcification without mobile elements identified clearly not involving the posterior mitral valve leaflet. ?3.? Left atrial appendage? technically difficult visualization but without clearly identified thrombus or mobile echodensity with preserved appendage velocities of 50 centimeters/second. ?4. ? Linear echodensity in the right atrium consistent with remnant Eustachian valve. ?5. ? No clearly identified vegetation or mobile echodensity on this study 07/30: BNP 9860 on arrival Repeat ECHO now Received IV lasix 40 mg once 07/31: Cr back to baseline 1.9 ECHO pending formal read appears euvolemic suspect BNP elevated from PNA (4) Paroxysmal atrial fibrillation: Code(s): I48.0 - Paroxysmal atrial fibrillation Status: Chronic Assessment and Plan: Continue Coreg Enoxaparin for DVT prophylaxis, renally dosed (5) Chronic kidney disease, stage 3: Qualifiers: Chronic kidney disease stage 3 subtype: stage 3b (GFR 30-44) Qualified Code(s): N18.32 - Chronic kidney disease, stage 3b Code(s): N18.30 - Chronic kidney disease, stage 3 unspecified Status: Chronic Assessment and Plan: Creatinine 2.6 on admission Creatinine 2.10 today 07/30 07/31: Cr back to baseline, 1.9 avoid nephrotoxic agents (6) Insulin dependent type 2 diabetes mellitus: Code(s): E11.9 - Type 2 diabetes mellitus without complications; Z79.4 - 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 He is currently on 3 L of oxygen as normally on room air home. He denies dyspnea at rest. He is alert and oriented x4. He appears euvolemic. Lung sounds are coarse. 07/31: Continues to require oxygen. He still has diffuse rhonci present and is unable to cough any secretions up. Will add mucolytics and steroids today. Review of Systems Review of Systems: 12 systems were reviewed and are negative except for as per HPI. Exam Narrative: General: well appearing, appears s
[2023-08-02 12:10] LABS: Glucose Point of Care 341 mg/dl (65-105)
--- NOTE | 2023-08-02 15:29 | PM.DS ---
DS: Admitting Diagnosis Discharge Date 08/02/23 Admitting Diagnosis shortness of breath DS: Discharge Diagnosis Discharge Diagnosis (1) Acute respiratory failure with hypoxia: Code(s): J96.01 - Acute respiratory failure with hypoxia Status: Acute (2) Aspiration pneumonia: Code(s): J69.0 - Pneumonitis due to inhalation of food and vomit Status: Acute (3) Heart failure with preserved ejection fraction: Qualifiers: Heart failure chronicity: acute on chronic Qualified Code(s): I50.33 - Acute on chronic diastolic (congestive) heart failure Code(s): I50.30 - Unspecified diastolic (congestive) heart failure Status: Acute (4) Paroxysmal atrial fibrillation: Code(s): I48.0 - Paroxysmal atrial fibrillation Status: Chronic (5) Chronic kidney disease, stage 3: Qualifiers: Chronic kidney disease stage 3 subtype: stage 3b (GFR 30-44) Qualified Code(s): N18.32 - Chronic kidney disease, stage 3b Code(s): N18.30 - Chronic kidney disease, stage 3 unspecified Status: Chronic (6) Insulin dependent type 2 diabetes mellitus: Code(s): E11.9 - Type 2 diabetes mellitus without complications; 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 He reports increasing shortness of breath over the past 3 days with mild swelling, orthopnea, and cough which has not really been productive. Not long prior to arrival his breathing became significantly worse and his is concerned that he may have aspirated. SpO2 was 65% on room air on EMS arrival. He was placed on BiPAP on arrival to the ED due to work of breathing. At the time my evaluation he reports feeling a lot better and thinks he can be come off of the BiPAP. He denies fever, chills, sweats, chest and pleuritic pain, palpitations, sensations of racing heart, syncope, near syncope, nausea, vomiting, diarrhea, and calf pain. In the ED: He was afebrile on arrival. SpO2 has been in upper 90s to 100% on BiPAP. Labs were significant for WBC count of 21.6 with 9% bands, hemoglobin 10.7, sodium 132, BUN 47, creatinine 2.50, proBNP 5380. Chest x-ray showed patchy bilateral mid and lower lung airspace disease which may be edema, atelectasis, or infection. He was given a nebulizer treatment and a dose of metronidazole, clindamycin, and ceftriaxone for suspected aspiration. He is being admitted in this setting for further treatment. 07/30:? Patient is seen today resting in bed in no acute distress.? He is currently on 3 L of oxygen as normally on room air home.? He denies dyspnea at rest.? He is alert and oriented x4.? He appears euvolemic.? Lung sounds are coarse. 07/31: Continues to require oxygen. He still has diffuse rhonchi present and is unable to cough any secretions up. Will add mucolytics and steroids today. 08/01: Breathing is much improved. Now off of oxygen. Was planning to discharge home but blood glucose elevated with steroids. Will increase Lantus tonight and re-evaluate for tomorrow. 08/02:? No acute events overnight.? Patient denies pain this morning.? He denies shortness of breath.? Really wants to discharge home today.? I told him that his blood sugar continues to be elevated and I would like to see it lower before discharge.? Agreed to re-evaluated at noon. Blood sugar this afternoon was 326. Patient has adamant about leaving today. His blood sugars are elevated from
--- NOTE | 2023-08-02 15:37 | P.PNIM_ITS ---
Progress Note: A&P Assessment and Plan (1) Acute respiratory failure with hypoxia: Code(s): J96.01 - Acute respiratory failure with hypoxia Status: Acute (2) Aspiration pneumonia: Code(s): J69.0 - Pneumonitis due to inhalation of food and vomit Status: Acute (3) Heart failure with preserved ejection fraction: Qualifiers: Heart failure chronicity: acute on chronic Qualified Code(s): I50.33 - Acute on chronic diastolic (congestive) heart failure Code(s): I50.30 - Unspecified diastolic (congestive) heart failure Status: Acute (4) Paroxysmal atrial fibrillation: Code(s): I48.0 - Paroxysmal atrial fibrillation Status: Chronic (5) Chronic kidney disease, stage 3: Qualifiers: Chronic kidney disease stage 3 subtype: stage 3b (GFR 30-44) Qualified Code(s): N18.32 - Chronic kidney disease, stage 3b Code(s): N18.30 - Chronic kidney disease, stage 3 unspecified Status: Chronic (6) Insulin dependent type 2 diabetes mellitus: Code(s): E11.9 - Type 2 diabetes mellitus without complications; 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 Now on 3 L nasal cannula * D-dimer elevated, V/Q negative for PE(2) Aspiration pneumonia: ?Code(s): J69.0 - Pneumonitis due to inhalation of food and vomit ?Status:?Acute ?Assessment and Plan: * Rocephin, Flagyl and azithromycin for possible aspiration pneumonia * Duo Nebs scheduled Q 6 * Leukocytosis of 21.6 on arrival.? White count down trending to 16.4 today * Afebrile * Continue to wean oxygen * Incentive spirometry ordered * Speech evaluated and patient passed modified barium swallow.? Continuing regular diet. 07/31: * Continue IV antibiotics as he is still requiring oxygen and sounds congested * Leukocytosis stable at 15.9, eosinophils 0.4% * Procal 1.9%. None ordered on admission. Will trend now * Add IV steroids * Added mucolytics ? ?08/01: * Lung sounds much improved today * Off oxygen, on room air * Change to oral prednisone ??Qualifiers: ?Heart failure chronicity:?acute on chronic? Qualified Code(s):?I50.33 - Acute on chronic diastolic (congestive) heart failure ?Code(s): I50.30 - Unspecified diastolic (congestive) heart failure ?Status:?Acute ?Assessment and Plan: TOMY from 09/19/22 1.? Preserved LV systolic function EF 55-60% with moderate LVH with asymmetric septal hypertrophy. ?2.? Well-circumscribed 1.7 x 1.4 cm calcified echodensity most likely consistent with severe mitral annular calcification without mobile elements identified clearly not involving the posterior mitral valve leaflet. ?3.? Left atrial appendage? technically difficult visualization but without clearly identified thrombus or mobile echodensity with preserved appendage velocities of 50 centimeters/second. ?4. ? Linear echodensity in the right atrium consistent with remnant Eustachian valve. ?5. ? No clearly identified vegetation or mobile echodensity on this study 07/30: * BNP 9860 on arrival * Repeat ECHO now * Received IV lasix 40 mg once 07/31: * Cr back to baseline 1.9 * ECHO pending formal read * appears euvolemic * suspect BNP elevated from PNA 08/01: * ECHO shows EF 60-65%, LV grade 1 hemphill
--- NOTE | 2023-08-02 15:37 | PM.IMPN ---
Progress Note: A&P Assessment and Plan (1) Acute respiratory failure with hypoxia: Code(s): J96.01 - Acute respiratory failure with hypoxia Status: Acute (2) Aspiration pneumonia: Code(s): J69.0 - Pneumonitis due to inhalation of food and vomit Status: Acute (3) Heart failure with preserved ejection fraction: Qualifiers: Heart failure chronicity: acute on chronic Qualified Code(s): I50.33 - Acute on chronic diastolic (congestive) heart failure Code(s): I50.30 - Unspecified diastolic (congestive) heart failure Status: Acute (4) Paroxysmal atrial fibrillation: Code(s): I48.0 - Paroxysmal atrial fibrillation Status: Chronic (5) Chronic kidney disease, stage 3: Qualifiers: Chronic kidney disease stage 3 subtype: stage 3b (GFR 30-44) Qualified Code(s): N18.32 - Chronic kidney disease, stage 3b Code(s): N18.30 - Chronic kidney disease, stage 3 unspecified Status: Chronic (6) Insulin dependent type 2 diabetes mellitus: Code(s): E11.9 - Type 2 diabetes mellitus without complications; 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 Now on 3 L nasal cannula D-dimer elevated, V/Q negative for PE(2) Aspiration pneumonia: ?Code(s): J69.0 - Pneumonitis due to inhalation of food and vomit ?Status:?Acute ?Assessment and Plan: Rocephin, Flagyl and azithromycin for possible aspiration pneumonia Duo Nebs scheduled Q 6 Leukocytosis of 21.6 on arrival.? White count down trending to 16.4 today Afebrile Continue to wean oxygen Incentive spirometry ordered Speech evaluated and patient passed modified barium swallow.? Continuing regular diet. 07/31: Continue IV antibiotics as he is still requiring oxygen and sounds congested Leukocytosis stable at 15.9, eosinophils 0.4% Procal 1.9%. None ordered on admission. Will trend now Add IV steroids Added mucolytics ? ?08/01: Lung sounds much improved today Off oxygen, on room air Change to oral prednisone ??Qualifiers: ?Heart failure chronicity:?acute on chronic? Qualified Code(s):?I50.33 - Acute on chronic diastolic (congestive) heart failure ?Code(s): I50.30 - Unspecified diastolic (congestive) heart failure ?Status:?Acute ?Assessment and Plan: TOMY from 09/19/22 1.? Preserved LV systolic function EF 55-60% with moderate LVH with asymmetric septal hypertrophy. ?2.? Well-circumscribed 1.7 x 1.4 cm calcified echodensity most likely consistent with severe mitral annular calcification without mobile elements identified clearly not involving the posterior mitral valve leaflet. ?3.? Left atrial appendage? technically difficult visualization but without clearly identified thrombus or mobile echodensity with preserved appendage velocities of 50 centimeters/second. ?4. ? Linear echodensity in the right atrium consistent with remnant Eustachian valve. ?5. ? No clearly identified vegetation or mobile echodensity on this study 07/30: BNP 9860 on arrival Repeat ECHO now Received IV lasix 40 mg once 07/31: Cr back to baseline 1.9 ECHO pending formal read appears euvolemic suspect BNP elevated from PNA 08/01: ECHO shows EF 60-65%, LV grade 1 diastolic dysfunction, mitral valve annulus with severely calcified, mitral valve regurgitation. (4) Paroxysmal atrial fibrillation: ?Code(s): I48.0 - Paroxysmal atrial fibrillation ?Status:?Chronic ?Assessment and Plan: Continue Coreg Enoxaparin for DVT prophylaxis, renally dosed (5) Chronic kidney disease, stage 3: ?Qualifiers: ?Chronic kidney disease stage 3 subtype:?stage 3b (GFR 30-44)? Qualified Code(s):?N18.32 - Chronic kidney disease, stage
[2023-08-02 17:12] LABS: Glucose Point of Care 423 mg/dl (65-105)
[2023-08-02] MEDS: ATORVASTATIN 40 MG TABLET 80 MG PO (21:44)
[2023-08-02] MEDS: INSULIN GLARGINE (*BKC) 100 UNITS/ML 20 UNITS SUB-Q (21:56)
[2023-08-02] MEDS: AZITHROMYCIN 500 MG/NS 250 ML 500 MG/250 ML BAG 250 MG IVPB (23:10)
[2023-08-02] MEDS: MELATONIN 5 MG TABLET PO (23:10)
[2023-08-03] VITALS (11 sets, daily range): BP systolic 143–145; BP diastolic 60–65; PULSE 52–66; RESP 16–22; TEMP 36.3–37.1; O2SAT 95–96
[2023-08-03] MEDS: ACETYLCYSTEINE 20% INHAL SOLN 800 MG/4 ML VIAL 200 MG INHALATION ×3 (01:59→13:48)
[2023-08-03] MEDS: IPRATROPIUM 0.5 MG/ALBUTEROL SULFATE 2.5 MG AMPUL.NEB 3 ML INHALATION ×3 (02:00→13:49)
[2023-08-03 05:55] LABS: Glucose Point of Care 391 mg/dl (65-105)
[2023-08-03 06:27] LABS: Basophils Absolute Auto 0.1 K/mm3 (0.0-0.1); Basophils Percent Auto 0.3 % (0.2-1.2); Hematocrit 29.2 % (42.0-52.0); Hemoglobin 9.5 g/dL (14.0-18.0); Immature Granulocyte Percent A 5.6 % (0-0.5); Lymphocytes Absolute Auto 1.95 K/mm3 (0.9-3.2); Lymphocytes Percent Auto 8.3 % (18.3-44.2); Mean Corpuscular HGB Conc 32.5 g/dl (32-36); Mean Corpuscular Hemoglobin 27.9 pg (26-34); Mean Corpuscular Volume 85.9 fl (80-100); Mean Platelet Volume 10.8 fl (7.4-10.4); Monocytes Absolute Auto 1.3 K/mm3 (0.1-0.6); Monocytes Percent Auto 5.6 % (2.6-8.5); Neutrophils Absolute Auto 18.8 K/mm3 (1.3-6.7); Neutrophils Percent Auto 80.2 % (45.5-73.1); Platelet Count Result 271 k/mm3 (150-375); Red Cell Distribution Width 13.6 % (11.5-14.5); White Blood Count 23.4 K/mm3 (4.5-10.0)
[2023-08-03 06:38] LABS: Alanine Aminotransferase 11 U/L (6-50); Albumin Level 2.6 g/dL (3.5-5.1); Alkaline Phosphatase 72 U/L (38-126); Anion Gap 7 mmol/L (4-12); Aspartate Amino Transferase 16 U/L (17-59); Bilirubin,Total 0.4 mg/dL (0.2-1.3); Blood Urea Nitrogen 52 mg/dL (9-20); Calcium 7.8 mg/dL (8.4-10.2); Carbon Dioxide 20 mmol/L (22-30); Chloride 104 mmol/L (98-107); Estimated CRCL calculation 28 ml/min; Estimated Glomerular Filt Rate 29; Glucose 424 mg/dL (65-110); Potassium 4.4 mmol/L (3.4-5.0); Sodium 131 mmol/L (137-145)
[2023-08-03 08:02] LABS: Acanthocytes 2+; Platelet Estimate Adequate (Adequate); Schistocytes Rare
[2023-08-03 08:22] LABS: Glucose Point of Care 396 mg/dl (65-105)
[2023-08-03] MEDS: glipiZIDE 5 MG TABLET 10 MG PO (08:31)
[2023-08-03] MEDS: NIFEdipine 30 MG TAB.ER.24 60 MG PO (08:31)
[2023-08-03] MEDS: PARoxetine 20 MG TABLET 40 MG PO (08:31)
[2023-08-03] MEDS: guaiFENesin 12 HR 600 MG TABCR 1200 MG PO (08:31)
[2023-08-03] MEDS: ramipriL 5 MG CAPSULE 10 MG PO (08:31)
[2023-08-03] MEDS: metroNIDAZOLE 500 MG TABLET PO (08:31)
[2023-08-03] MEDS: AZITHROMYCIN 250 MG TABLET 500 MG PO (08:31)
[2023-08-03] MEDS: carvediloL 12.5 MG TABLET 25 MG PO (08:32)
[2023-08-03] MEDS: AMOXICILLIN/CLAVULANATE K 500-125 MG TAB 1 TABLET PO (08:32)
[2023-08-03] MEDS: ASPIRIN 325 MG ENTERIC TABLET PO (08:32)
[2023-08-03] MEDS: CLOPIDOGREL BISULFATE 75 MG TABLET PO (08:32)
[2023-08-03] MEDS: SODIUM BICARBONATE TAB 650 MG TABLET PO (08:32)
[2023-08-03] MEDS: ENOXAPARIN 40 MG/0.4 ML SYRINGE SUB-Q (08:33)
[2023-08-03] MEDS: INSULIN ASPART (*BKC) 100 UNITS/ML SUB-Q ×2 (09:10→12:38)
[2023-08-03] MEDS: INSULIN GLARGINE (*BKC) 100 UNITS/ML 10 UNITS SUB-Q (09:11)
--- NOTE | 2023-08-03 11:18 | P.PNIM_ITS ---
Progress Note: A&P Assessment and Plan (1) Acute respiratory failure with hypoxia: Code(s): J96.01 - Acute respiratory failure with hypoxia Status: Acute (2) Aspiration pneumonia: Code(s): J69.0 - Pneumonitis due to inhalation of food and vomit Status: Acute (3) Heart failure with preserved ejection fraction: Qualifiers: Heart failure chronicity: acute on chronic Qualified Code(s): I50.33 - Acute on chronic diastolic (congestive) heart failure Code(s): I50.30 - Unspecified diastolic (congestive) heart failure Status: Acute (4) Paroxysmal atrial fibrillation: Code(s): I48.0 - Paroxysmal atrial fibrillation Status: Chronic (5) Chronic kidney disease, stage 3: Qualifiers: Chronic kidney disease stage 3 subtype: stage 3b (GFR 30-44) Qualified Code(s): N18.32 - Chronic kidney disease, stage 3b Code(s): N18.30 - Chronic kidney disease, stage 3 unspecified Status: Chronic (6) Insulin dependent type 2 diabetes mellitus: Code(s): E11.9 - Type 2 diabetes mellitus without complications; 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 Now on 3 L nasal cannula * D-dimer elevated, V/Q negative for PE(2) Aspiration pneumonia: ?Code(s): J69.0 - Pneumonitis due to inhalation of food and vomit ?Status:?Acute ?Assessment and Plan: * Rocephin, Flagyl and azithromycin for possible aspiration pneumonia * Duo Nebs scheduled Q 6 * Leukocytosis of 21.6 on arrival.? White count down trending to 16.4 today * Afebrile * Continue to wean oxygen * Incentive spirometry ordered * Speech evaluated and patient passed modified barium swallow.? Continuing regular diet. 07/31: * Continue IV antibiotics as he is still requiring oxygen and sounds congested * Leukocytosis stable at 15.9, eosinophils 0.4% * Procal 1.9%. None ordered on admission. Will trend now * Add IV steroids * Added mucolytics ? ?08/01: * Lung sounds much improved today * Off oxygen, on room air 08/02: * Saturating well on room air. Denies chest pain, shortness a breath. * Procalcitonin continues to decline. Leukocytosis secondary to steroids. ??Qualifiers: ?Heart failure chronicity:?acute on chronic? Qualified Code(s):?I50.33 - Acute on chronic diastolic (congestive) heart failure ?Code(s): I50.30 - Unspecified diastolic (congestive) heart failure ?Status:?Acute ?Assessment and Plan: TOMY from 09/19/22 1.? Preserved LV systolic function EF 55-60% with moderate LVH with asymmetric septal hypertrophy. ?2.? Well-circumscribed 1.7 x 1.4 cm calcified echodensity most likely consistent with severe mitral annular calcification without mobile elements i dentified clearly not involving the posterior mitral valve leaflet. ?3.? Left atrial appendage? technically difficult visualization but without clearly identified thrombus or mobile echodensity with preserved appendage velocities of 50 centimeters/second. ?4. ? Linear echodensity in the right atrium consistent with remnant Eustachian valve. ?5. ? No clearly identified vegetation or mobile echodensity on this study 07/30: * BNP 9860 on arrival * Repeat ECHO now * Received IV lasix 40 mg once 07/31: * Cr back to baseline 1.9 * ECHO pending formal
--- NOTE | 2023-08-03 11:18 | PM.IMPN ---
Progress Note: A&P Assessment and Plan (1) Acute respiratory failure with hypoxia: Code(s): J96.01 - Acute respiratory failure with hypoxia Status: Acute (2) Aspiration pneumonia: Code(s): J69.0 - Pneumonitis due to inhalation of food and vomit Status: Acute (3) Heart failure with preserved ejection fraction: Qualifiers: Heart failure chronicity: acute on chronic Qualified Code(s): I50.33 - Acute on chronic diastolic (congestive) heart failure Code(s): I50.30 - Unspecified diastolic (congestive) heart failure Status: Acute (4) Paroxysmal atrial fibrillation: Code(s): I48.0 - Paroxysmal atrial fibrillation Status: Chronic (5) Chronic kidney disease, stage 3: Qualifiers: Chronic kidney disease stage 3 subtype: stage 3b (GFR 30-44) Qualified Code(s): N18.32 - Chronic kidney disease, stage 3b Code(s): N18.30 - Chronic kidney disease, stage 3 unspecified Status: Chronic (6) Insulin dependent type 2 diabetes mellitus: Code(s): E11.9 - Type 2 diabetes mellitus without complications; 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 Now on 3 L nasal cannula D-dimer elevated, V/Q negative for PE(2) Aspiration pneumonia: ?Code(s): J69.0 - Pneumonitis due to inhalation of food and vomit ?Status:?Acute ?Assessment and Plan: Rocephin, Flagyl and azithromycin for possible aspiration pneumonia Duo Nebs scheduled Q 6 Leukocytosis of 21.6 on arrival.? White count down trending to 16.4 today Afebrile Continue to wean oxygen Incentive spirometry ordered Speech evaluated and patient passed modified barium swallow.? Continuing regular diet. 07/31: Continue IV antibiotics as he is still requiring oxygen and sounds congested Leukocytosis stable at 15.9, eosinophils 0.4% Procal 1.9%. None ordered on admission. Will trend now Add IV steroids Added mucolytics ? ?08/01: Lung sounds much improved today Off oxygen, on room air 5/18: Saturating well on room air. Denies chest pain, shortness a breath. Procalcitonin continues to decline. Leukocytosis secondary to steroids. ??Qualifiers: ?Heart failure chronicity:?acute on chronic? Qualified Code(s):?I50.33 - Acute on chronic diastolic (congestive) heart failure ?Code(s): I50.30 - Unspecified diastolic (congestive) heart failure ?Status:?Acute ?Assessment and Plan: TOMY from 09/19/22 1.? Preserved LV systolic function EF 55-60% with moderate LVH with asymmetric septal hypertrophy. ?2.? Well-circumscribed 1.7 x 1.4 cm calcified echodensity most likely consistent with severe mitral annular calcification without mobile elements identified clearly not involving the posterior mitral valve leaflet. ?3.? Left atrial appendage? technically difficult visualization but without clearly identified thrombus or mobile echodensity with preserved appendage velocities of 50 centimeters/second. ?4. ? Linear echodensity in the right atrium consistent with remnant Eustachian valve. ?5. ? No clearly identified vegetation or mobile echodensity on this study 07/30: BNP 9860 on arrival Repeat ECHO now Received IV lasix 40 mg once 07/31: Cr back to baseline 1.9 ECHO pending formal read appears euvolemic suspect BNP elevated from PNA 08/01: ECHO shows EF 60-65%, LV grade 1 diastolic dysfunction, mitral valve annulus with severely calcified, mitral valve regurgitation. (4) Paroxysmal atrial fibrillation: ?Code(s): I48.0 - Paroxysmal atrial fibrillation ?Status:?Chronic ?Assessment and Plan: Continue Coreg Enoxaparin for DVT prophylaxis, renally dosed (5) Chronic kidney disease, stage 3: ?Qualifiers: ? ? ?
[2023-08-03 12:37] LABS: Glucose Point of Care 326 mg/dl (65-105)
[2023-08-03 21:04] LABS: Pneumococcal Antigen Urine DETECTED
[2023-08-07 03:03] LABS: Legionella pneumophila Ag Ur NOT DETECTED
[2023-08-10 16:34] LABS: Mycoplasma IgM Antibody Titer 105 U/mL
== END 2023-08-03 17:42 | disposition home or self-care (01) | DRG 177 ==
LOC: ANHED 17:43 → ANHIMU 18:53 → ANH3MED 07-30 06:21
PROVIDERS: Internal Medicine; Physician Assistant; Admitting Provider General Practice; Emergency Provider Emergency Medicine; PCP Internal Medicine; Visit Provider Nurse Practitioner Acute Care
DX: J69.0 Pneumonitis due to inhalation of food and vomit (principal); J96.01 Acute respiratory failure with hypoxia; I13.0 Hypertensive heart and chronic kidney disease with heart failure and stage 1 through stage 4 chronic kidney disease, or unspecified chronic kidney disease; I50.32 Chronic diastolic (congestive) heart failure; I69.354 Hemiplegia and hemiparesis following cerebral infarction affecting left non-dominant side; I25.10 Atherosclerotic heart disease of native coronary artery without angina pectoris; I48.0 Paroxysmal atrial fibrillation; N18.32 Chronic kidney disease, stage 3b; E11.22 Type 2 diabetes mellitus with diabetic chronic kidney disease; E11.51 Type 2 diabetes mellitus with diabetic peripheral angiopathy without gangrene; E11.42 Type 2 diabetes mellitus with diabetic polyneuropathy; K21.9 Gastro-esophageal reflux disease without esophagitis; F01.50 Vascular dementia, unspecified severity, without behavioral disturbance, psychotic disturbance, mood disturbance, and anxiety; F31.9 Bipolar disorder, unspecified; I25.2 Old myocardial infarction; Z95.5 Presence of coronary angioplasty implant and graft; Z95.1 Presence of aortocoronary bypass graft; Z79.4 Long term (current) use of insulin
CPT/HCPCS: 36415; 36600; 71045; 78580; 80048; 80053; 81001; 82375; 82805; 82948; 83050; 83605; 83735; 83880; 84145; 85025; 85027; 85380; 85610; 85730; 86738; 87040; 87086; 87449; 87899; 92610; 92611; 93005; 93306; 94002; 94640; 94667; 96361; 96365; 96367; 96375; 96376; 99285; A9270; A9540; C8929; G0378; J0456; J0696; J1650; J1815; J1836; J1940; J2919; J7030; Q9957

== ENCOUNTER 2023-09-11 07:33 | Inpatient (IN) | payer MEDICARE, SELFPAY ==
[2023-09-11] VITALS (14 sets, daily range): BP systolic 155–246; BP diastolic 68–109; PULSE 75–92; RESP 16–23; TEMP 36.2–37.4; O2SAT 89–97; BMI 28.7; BMI 28.8
--- NOTE | ~2023-09-11 | US_ITS ---
EXAMINATION: US perc cholecystostomy w imag DATE: 09/16/2023 15:58 INDICATION: Acute cholecystitis. TECHNIQUE: The procedure including the risks, benefits, and alternatives was discussed with the patie nt. Risks discussed included bleeding including hemobilia, infection, vasovagal reaction, and bile pe ritonitis. Oral consent was obtained. A timeout was performed to verify the patient's name, date o f , and procedure to be performed. The patient was confirmed to be receiving appropriate antibio tic coverage. The skin overlying the gallbladder was prepped and draped in usual sterile fashion. A nesthetic was administered with 1% lidocaine subcutaneously. An 8.5 Fr catheter was inserted into th e gallbladder by trocar technique. The metal stiffener and trocar needle were removed, and the pigtai l tip was locked. Bile was aspirated and sent for culture. The catheter was stitched to the skin with suture. There were no immediate complications. FINDINGS: Ultrasound images demonstrate the catheter within the gallbladder. 10 mL bile was aspirated . IMPRESSION: 1. Successful ultrasound-guided cholecystostomy tube placement. 2. 10 mm black bile was sent for aerobic and anaerobic cultures. 3. The catheter will be managed by Dr. Deluna. A catheter cholangiogram may be performed not less than 48 hours after tube placement if clinically indicated to assess cystic duct patency. If cholecystect doni is not eventually performed and the infectious episode has resolved, the tube may be removed over a guidewire, preferably not less than 3 weeks after placement to allow time for a mature catheter tr act to form to prevent bile leakage and peritonitis. Reviewed, dictated and finalized at location A. IMPRESSION: 1. Successful ultrasound-guided cholecystostomy tube placement. 2. 10 mm black bile was sent for aerobic and anaerobic cultures. 3. The catheter will be managed by Dr. Deluna. A catheter cholangiogram may be p erformed not less than 48 hours after tube placement if clinically indicated to assess cystic duct patency. If cholecystectomy is not eventually performed and the infectious episode has resolved, the tube may be removed over a guidewire, preferably not less than 3 weeks after placement to allow time for a mature ca theter tract to form to prevent bile leakage and peritonitis.
--- NOTE | ~2023-09-11 | XR_ITS ---
EXAMINATION: [id number] DATE: 09/17/2023 13:49 INDICATION: Left pleural effusion status post thoracentesis. TECHNIQUE: Frontal and lateral views of the chest were obtained. COMPARISON: Chest 2 views 09/11/2023 FINDINGS: There is a small loculated left pleural effusion. There are airspace opacities at left lung base. No pneumothorax. Cardiomegaly is noted. Median sternotomy wires and mediastinal surgical clips are seen, likely from prior coronary artery bypass grafting. A percutaneous cholecystostomy tube is noted. IMPRESSION: 1. Small loculated left pleural effusion. 2. Airspace opacities at left lung base, consistent with atelectasis versus pneumonia. 3. Cardiomegaly. Reviewed, dictated and finalized at location A. IMPRESSION: 1. Small loculated left pleural effusion. 2. Airspace opacities at left lung base, consistent with atelectasis versus pne umonia. 3. Cardiomegaly.
--- NOTE | ~2023-09-11 | US_ITS ---
EXAMINATION: US thoracentesis DATE: 09/17/2023 14:14 INDICATION: pleural effusion TECHNIQUE: The procedure and its risks, benefits, and alternatives were discussed with the patient. P otential risks discussed included bleeding, infection, and pneumothorax. The patient understood the r isks and agreed to proceed. The skin was prepped and draped in sterile fashion. 1% lidocaine was used for local anesthesia. Under ultrasound guidance, a 5 Fr catheter with trochar was advanced into the left pleural effusion. Fluid was aspirated. The catheter was removed, and a dressing was applied. The re were no immediate complications. FINDINGS: Ultrasound images demonstrate a left pleural effusion and the catheter within the fluid. IMPRESSION: 1. Successful ultrasound-guided thoracentesis yielding 200 mL of dark red fluid. Reviewed, dictated and finalized at location A. IMPRESSION: 1. Successful ultrasound-guided thoracentesis yielding 200 mL of dark red flui d.
--- NOTE | ~2023-09-11 | CT_ITS ---
EXAMINATION: CT chest abdomen pelvis wo con DATE: 09/21/2023 14:23 INDICATION: F/U cholecystitis . TECHNIQUE: Computed tomography (CT) of the chest, abdomen, and pelvis was performed without intraveno us contrast. Automated exposure control and iterative reconstruction technique were employed. The dos e-length product was 1392.54 mGy-cm. COMPARISON: X-ray chest 09/21/2023 CT chest 09/12/2023; ultrasound right upper quadrant 09/14/2023; hepat obiliary scan 09/16/2023 FINDINGS: CHEST: Thoracic aorta: No significant dilation. No dissection. Lung parenchyma and airways: Mild dependent right lung atelectasis. Moderate dependent and bandlike a telectasis in the left lung. Airways clear. Thoracic inlet, axillae and chest wall: No thyroid or soft tissue mass. No axillary lymphadenopathy. Bilateral gynecomastia. Mediastinum: No mass or lymphadenopathy. Calcified lymph nodes. Heart and pericardium: Cardiomegaly. No pericardial effusion. Aortic valve and mitral annulus calcifi cation. Coronary artery calcifications: Heavy. Pleura: Moderate volume left pleural fluid collection. Thoracic bones: No acute osseous finding in the chest. ABDOMEN/PELVIS: Liver: Normal. Biliary/Gallbladder: Cholecystostomy tube, in good position. Persistent but slightly improved pericho lecystic inflammatory change. No bile duct dilation. Pancreas: No mass or duct dilation. Spleen: Normal. Adrenals:No mass. Kidneys: No suspicious mass, obstructing stone, or hydronephrosis. GI tract: No small or large bowel dilation. Normal appendix. Mesentery/Peritoneum: No ascites, mass, or free air. Retroperitoneum: No mass Atherosclerotic abdominal aortic and/or arterial calcifications. Pelvis: Pelvic organs are within normal limits Soft Tissues: Soft tissues and body wall unremarkable. Small uncomplicated midline epigastric hernia containing fat. Abdominopelvic bones: No acute osseous finding in the abdomen/pelvis. IMPRESSION: Stable moderate left pleural effusion and presumed bibasilar atelectasis which is worse in the left l matt. Infection is not excluded. Percutaneous cholecystostomy tube, in good position. Persistent but slightly improved gallbladder inf lammation. Reviewed, dictated and finalized at location K. IMPRESSION: Stable moderate left pleural effusion and presumed bibasilar atelectasis which is worse in the left lung. Infection is not excluded. Percutaneous cholecystostomy tube, in good position. Persistent but slightly im proved gallbladder inflammation.
--- NOTE | ~2023-09-11 | CT_ITS ---
CT Scan of the Chest without Contrast: Clinical Indication: Pneumonia Technique: Contiguous sections were acquired throughout the chest without intravenous contrast. Dose reduction technique was used on this scan by utilizing automated exposure control and iterative recon struction technique. The dose-length product (DLP) was 420.19 mGy-cm. COMPARISON: 09/15/2022 Findings: There is no evidence of any significant mediastinal, hilar or axillary lymphadenopathy. The mediastin al soft tissues appear normal. No pericardial effusion. Moderate to large left pleural effusion is present, with extensive left lower lobe atelectasis. There is minimal right basilar atelectasis. Images through the upper abdomen reveal distended gallbladder. Impression: Moderate to large left pleural effusion with near complete left lower lobe atelectasis. Underlying pn eumonia not excluded. Reviewed, dictated and finalized at [facility]. Impression: Moderate to large left pleural effusion with near complete left lower lobe atel ectasis. Underlying pneumonia not excluded.
--- NOTE | ~2023-09-11 | NM_ITS ---
EXAMINATION: NM hepatobiliary w pharm DATE: 09/16/2023 09:24 INDICATION: Cholecystitis. COMPARISON: Abdomen ultrasound 09/14/2023, chest CT 09/12/2023 TECHNIQUE: 5.5 mCi Tc-99m mebrofenin (Choletec) was administered intravenously. Scintigraphic images of the abdomen were obtained for one hour. Then, 2 mg morphine IV was administered, and imaging was continued for 30 minutes. FINDINGS: There is normal clearance of radiotracer from the blood pool. There is homogeneous tracer u ptake by the liver. Activity progresses to the bowel. There is no activity in the gallbladder. IMPRESSION: 1. Acute cholecystitis. Reviewed, dictated and finalized at location A. IMPRESSION: 1. Acute cholecystitis.
--- NOTE | ~2023-09-11 | XR_ITS ---
EXAMINATION: XR chest 1V portable DATE: 09/21/2023 09:54 INDICATION: Leukocytosis. TECHNIQUE: A single frontal view of the chest was obtained. COMPARISON: Chest 2 views 09/17/2023 FINDINGS: There is a small left pleural effusion. There are airspace opacities at left lung base. No pneumothorax. Cardiomegaly is noted. Median sternotomy wires and mediastinal surgical clips are seen, likely from prior coronary artery bypass grafting. A percutaneous cholecystectomy tube is noted. IMPRESSION: 1. Small loculated left pleural effusion. 2. Persistent airspace opacities at left lung base, consistent with atelectasis versus pneumonia. 3. Cardiomegaly. Reviewed, dictated and finalized at location A.
--- NOTE | ~2023-09-11 | US_ITS ---
EXAMINATION: US right upper quadrant DATE: 09/14/2023 12:25 INDICATION: Distended gallbladder with epigastric pain TECHNIQUE: Multiple grayscale and Doppler ultrasound images of the abdomen were obtained. COMPARISON: CT dated 09/12/2023 FINDINGS: The region of the pancreas and portions of the liver are obscured by shadowing gas in the stomach. Li misti has normal echogenicity and contour, with a smooth surface. No liver lesion identified. No intrah epatic biliary duct dilation suspected. Portal venous flow was seen in the hepatopetal, normal direct ion and has normal Doppler waveform. There is diffuse wall thickening of the distended gallbladder. T here is there is hypoechoic sludge in the dependent aspect of the gallbladder without definitive shad owing cholelithiasis with a tiny calcified gallstones are evident on the prior CT.. The common bile d uct measures 4 mm in diameter which is normal. Sonographic Perry sign was reported as negative by [employer] fauc[employer] assembler. IMPRESSION: 1. Dilated gallbladder with wall thickening and sludge and tiny gallstones, the latter evident on josselyn or CT which is suspicious for acute cholecystitis however the sonographic Perry sign was reported as negative. Could consider HIDA scan for further evaluation for possible acute cholecystitis if clinic ally indicated. Reviewed, dictated and finalized at location A. IMPRESSION: 1. Dilated gallbladder with wall thickening and sludge and tiny gallstones, the latter evident on prior CT which is suspicious for acute cholecystitis however the sonographic Perry sign was reported as negative. Could consider HIDA scan for further evaluation for possible acute cholecystitis if clinically indicate d.
--- NOTE | ~2023-09-11 | XR_ITS ---
XR abdomen/kub 1V Ordering provider: Rylie Palacios III, DO History: . constipation . Comparison: None. FINDINGS: BOWEL: Nonobstructive bowel gas pattern. ORGANOMEGALY: None. SIGNIFICANT PATHOLOGIC CALCIFICATIONS: None. OTHER: No free air is seen under the diaphragm. Degenerative changes of the spine. Pubic symphysitis. Bilateral hip osteoarthritic changes. IMPRESSION: NO ACUTE ABDOMINAL FINDINGS. Reviewed, dictated and finalized at location A.
--- NOTE | ~2023-09-11 | XR_ITS ---
EXAMINATION: XR chest 2V DATE: 09/11/2023 08:29 INDICATION: Shortness of breath TECHNIQUE: frontal and lateral views of the chest were obtained. COMPARISON: Chest radiograph dated 07/29/23 FINDINGS: Airspace opacities in the left lower lung zone with blunting at costophrenic angle. Right lung is isabelle ar. No pulmonary edema, pneumothorax or right-sided pleural effusion. Mild cardiomegaly. Median abrams otomy wires and mediastinal surgical clips are seen, likely from prior coronary artery bypass graftin g. IMPRESSION: 1. Small left pleural effusion with associated atelectasis and/or pneumonia in the left lower lung zo ne. Reviewed, dictated and finalized at location B. IMPRESSION: 1. Small left pleural effusion with associated atelectasis and/or pneumonia in the left lower lung zone.
--- NOTE | 2023-09-11 07:36 | ECG_ITS ---
Test Date: 2023-09-11 07:46:09 Measurements Intervals [place] Rate: 81 P: -5 MN: 125 QRS: -4 QRSD: 152 T: 11 QT: 444 QTc: 516 Interpretive Statements SINUS RHYTHM RIGHT BUNDLE BRANCH BLOCK [120+ ms QRS DURATION, UPRIGHT V1, 40+ ms S IN I/aVL/V4/V5/V6] No previous ECG available for comparison Electronically Signed On 09-11-2023 11:54:20 CDT by Thom Conte M.D.
--- NOTE | 2023-09-11 08:15 | ED.ABDPAIN ---
HPI - Abdominal Pain General Chief Complaint: Abdominal Pain Stated Complaint: Abd pain Time Seen by Provider: 09/11/23 07:34 History of Present Illness HPI narrative: Pt presents with SOB and constipation. Pt has a history of CHF and has felt SOB for several days. Pt denies CP or fever or cough. Pt denies weight gain or leg swelling. Pt says he has not had BM for two days and that was small and hard and he feels constipated. Pt has not tried anything at home as far as treatment. Pt lives at home with . Related Data Home Medications Medication Instructions Recorded Confirmed omeprazole 20 mg capsule,delayed 20 mg PO DAILY 03/04/19 09/11/23 release paroxetine HCl 20 mg tablet 40 mg PO DAILY 03/04/19 09/11/23 ramipril 10 mg capsule 10 mg PO DAILY 03/04/19 09/11/23 glipizide 5 mg tablet 10 mg PO BID 09/14/22 09/11/23 omega 4-sys-jng-fish oil 60 mg-90 1 cap PO DAILY 03/24/23 09/11/23 mg-500 mg capsule (Fish Oil) insulin degludec 100 unit/mL (3 20 unit subcut HS 03/31/23 09/11/23 mL) subcutaneous pen (Tresiba FlexTouch U-100 insulin) aspirin 325 mg capsule 325 mg PO DAILY 07/30/23 09/11/23 clopidogrel 75 mg tablet 75 mg PO DAILY 07/30/23 09/11/23 insulin lispro 100 unit/mL 1 sliding scale dose subcut 09/11/23 09/11/23 subcutaneous pen USEASDIRECTD melatonin 3 mg tablet 10 mg PO HS 09/11/23 09/11/23 Allergies Allergy/AdvReac Type Severity Reaction Status Date / Time No Known Allergies Allergy Verified 01/25/23 13:36 Review of Systems Review of Systems: All systems reviewed & are unremarkable except as noted in HPI and below PMFSH Past Medical History Medical History (Updated 09/11/23 @ 14:30 by Arminda Sorenson APRN) Anemia Bipolar disease, chronic Cerebrovascular accident Multiple strokes with residual left-sided weakness. Chronic kidney disease, stage 3 Coronary artery disease Diabetic peripheral neuropathy 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) Dysphagia as late effect of cerebrovascular accident (CVA) GERD (gastroesophageal reflux disease) Heart failure with preserved ejection fraction Hypertension Insulin dependent type 2 diabetes mellitus Mitral valve disease Myocardial infarction Paroxysmal atrial fibrillation Peripheral artery disease Physical deconditioning Vascular dementia Surgical History Surgical History History of cardiac catheterization History of coronary artery bypass graft x 3 (11/2001) History of coronary artery stent placement (2018) History of vascular surgery (2012) Bilateral lower extremity stents two stents. Family History Family History Mother Acute myocardial infarction Cerebrovascular accident Diabetes mellitus Hypertension Sibling Acute myocardial infarction AIDS Sibling AIDS Social History Social History Social History: Surrogate medical decision maker: Maite Julieta, spouse. Code status: Smoking status: Never smoker Second hand tobacco smoke exposure: No Alcohol intake: former Substance use: never Substance use type: does not use Do You Feel Safe in your Home?: Yes Lack of Transportation: YES Lack of Food: Never True Current Housing: I Have Housing Concerned About Future Housing: No Difficulty Paying Gas/Electric Bills: No Difficulty Paying for Meds: YES Currently Unemployed: No Education: High School Diploma/GED Difficulty w/ Childcare or Family Care: No Additional living arrangements comments: Lives with spouse. Spiritual care concerns: No Agree to blood products: Yes Exam Const: General: healthy appearing and no acute distress Nutritional Appearance: well nourished Orientation/consciousness: patient oriented x3 Limitations: no limitations Eyes: Conjunctivae: conjunctivae normal EOM:
[2023-09-11 08:19] LABS: Basophils Absolute Auto 0.1 K/mm3 (0.0-0.1); Basophils Percent Auto 0.9 % (0.2-1.2); Eosinophils Absolute Auto 0.1 K/mm3 (0-0.3); Eosinophils Percent Auto 1.1 % (0-4.4); Hematocrit 39.7 % (42.0-52.0); Hemoglobin 12.4 g/dL (14.0-18.0); Immature Granulocyte Absolute 0.03 K/mm3 (0.00-0.031); Immature Granulocyte Percent A 0.3 % (0-0.5); Lymphocytes Absolute Auto 1.31 K/mm3 (0.9-3.2); Lymphocytes Percent Auto 12.9 % (18.3-44.2); Mean Corpuscular HGB Conc 31.2 g/dl (32-36); Mean Corpuscular Hemoglobin 27.3 pg (26-34); Mean Corpuscular Volume 87.4 fl (80-100); Mean Platelet Volume 10.3 fl (7.4-10.4); Monocytes Absolute Auto 0.5 K/mm3 (0.1-0.6); Monocytes Percent Auto 4.9 % (2.6-8.5); Neutrophils Absolute Auto 8.1 K/mm3 (1.3-6.7); Neutrophils Percent Auto 79.9 % (45.5-73.1); Platelet Count Result 337 k/mm3 (150-375); Red Blood Count 4.54 M/mm3 (4.6-6.20); Red Cell Distribution Width 14.1 % (11.5-14.5); White Blood Count 10.1 K/mm3 (4.5-10.0)
[2023-09-11 08:30] LABS: Alanine Aminotransferase 11 U/L (6-50); Albumin Level 3.2 g/dL (3.5-5.1); Alkaline Phosphatase 140 U/L (38-126); Anion Gap 5 mmol/L (4-12); Aspartate Amino Transferase 21 U/L (17-59); Bilirubin,Total 0.5 mg/dL (0.2-1.3); Blood Urea Nitrogen 12 mg/dL (9-20); Calcium 8.2 mg/dL (8.4-10.2); Carbon Dioxide 30 mmol/L (22-30); Chloride 105 mmol/L (98-107); Estimated CRCL calculation 42 ml/min; Estimated Glomerular Filt Rate 48; Glucose 241 mg/dL (65-110); Lipase 79 U/L (23-300); Potassium 3.7 mmol/L (3.4-5.0); Sodium 140 mmol/L (137-145)
[2023-09-11 08:38] LABS: INR 1.1; Prothrombin Time 14.3 Seconds (11.1-14.7)
[2023-09-11 08:42] LABS: NT Pro B Type Natriuretic Pept 14600 pg/mL (19.9-100); Troponin I 0.013 ng/mL (0.000-0.034)
--- NOTE | 2023-09-11 09:20 | PC.NURSE ---
pt reports he has not taken his BP medications today. Dr. Palacios made aware and states he can take his BP medications that he has with him. pt took 2 12.5mg tablets of carvedilol and 1 tablet of ramipril 10mg.
[2023-09-11] MEDS: FUROSEMIDE INJ 40 MG/4 ML VIAL IV PUSH (09:56)
[2023-09-11] MEDS: ONDANSETRON INJ 4 MG/2 ML VIAL IV PUSH (10:05)
[2023-09-11] MEDS: NITROGLYCERIN OINTMENT 1 INCH DOSE TRANSDERM (10:56)
--- NOTE | 2023-09-11 12:15 | ADMGEN ---
This patient, Robert Rendon, was admitted to 3 [facility] Surg Room 317-02. Patient/family oriented to hospital policies and general routines including ID bracelet, bed and alarms, visiting hours, pain management, procedures, bathroom and other care routines, personal items, smoking policy, room service/diet, and visiting hours. Information on how to activate the Rapid Response Team has been discussed. Patient/Family are encouraged to report perceived risks to care and to ask questions if they do not understand what they are told or what they should do.
--- NOTE | 2023-09-11 14:14 | PM.IMHP ---
H&P: HPI History of Present Illness Date/Time: 09/11/23 14:14 Chief Complaint: SOB, Epigastric Pain Narrative: 62 y/o M presents here with shortness of breath, epigastric pain, and nausea with PMH of CKD, bipolar, CVA with residual left-sided weakness, CAD, neuropathy, GERD, HF w/pEF, HTN, DM, NC, PAD, pAFib, and vascular dementia. The patient presents here via EMS from home for further evaluation of acute on chronic shortness of breath, epigastric pain, nausea, and constipation. The patient reports shortness of breath has worsened in the last 3 days. Shortness of breath is accompanied by chest pain and a nonproductive cough. Described as pressure, nonradiating, intermittent, and rest would alleviate the pain. No aggravating factors. Denies associated diaphoresis, fever, body aches or chills. Also reports onset of epigastric pain 2 days ago and last bowel movement was 2 days ago which was hard and small. He describes the pain as dull but intermittently sharp, nonradiating, intermittent, no aggravating factors, and alleviated by drinking water. Currently lives at home with his , and daughter help care for him, and is non ambulatory/bedbound due to PMH of CVAs with deficits. Last admission was from 07/28-08/02 for hypoxia, concern for aspiration PNA. Treated with Rocephin, Flagyl, and azithromycin. Passed a modified barium swallow on 07/30. Initial VS at presentation: 97.6? F, HR 81, RR 23, vascular 231/104, and 91% on RA. 97% on 2L NC. ED workup showed: WBC 10.1, hemoglobin 12.4, normal coags, creatinine 1.5 and GFR 48, glucose 241, BNP 68383. CXR showed a small left pleural effusion with associated atelectasis and/or pneumonia in the left lower lung zone. XR of the abdomen showed no acute abdominal findings. Review of Systems Review of Systems: All systems reviewed & are unremarkable except as noted in HPI and below [facility] Past Medical History Medical History (Updated 09/11/23 @ 14:30 by Arminda Sorenson, [employer]DAINED MINISTER) Anemia Bipolar disease, chronic Cerebrovascular accident Multiple strokes with residual left-sided weakness. Chronic kidney disease, stage 3 Coronary artery disease Diabetic peripheral neuropathy 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) Dysphagia as late effect of cerebrovascular accident (CVA) GERD (gastroesophageal reflux disease) Heart failure with preserved ejection fraction Hypertension Insulin dependent type 2 diabetes mellitus Mitral valve disease Myocardial infarction Paroxysmal atrial fibrillation Peripheral artery disease Physical deconditioning Vascular dementia Surgical History Surgical History History of cardiac catheterization History of coronary artery bypass graft x 3 (11/2001) History of coronary artery stent placement (2017) History of vascular surgery (2012) Bilateral lower extremity stents two stents. Family History Family History Mother Acute myocardial infarction Cerebrovascular accident Diabetes mellitus Hypertension Sibling Acute myocardial infarction AIDS Sibling AIDS Social History Social History Social History: Surrogate medical decision maker: Maite Rendon, spouse. Code status: Smoking status: Never smoker Second hand tobacco smoke exposure: No Alcohol intake: former Substance use: never Substance use type: does not use Do You Feel Safe in your Home?: Yes Lack of Transportation: YES Lack of Food: Never True Current Housing: I Have Housing Concerned About Future Housing: No Difficulty Paying Gas/Electric Bills: No Difficulty Paying for Meds: YES Currently Unemployed: No Education: High School Diploma/GED Difficulty w/ Childcare or Family Care: No Additional living arrangements comments: Lives with spouse. Spiritual ca
[2023-09-11] MEDS: hydrALAZINE HCL 20 MG/ML VIAL 10 MG IV PUSH (14:29)
[2023-09-11] MEDS: GABAPENTIN 100 MG CAPSULE PO ×2 (14:29→17:02)
[2023-09-11] MEDS: carvediloL 12.5 MG TABLET 25 MG PO (16:16)
[2023-09-11] MEDS: glipiZIDE 5 MG TABLET 10 MG PO (16:17)
[2023-09-11 16:43] LABS: Glucose Point of Care 200 mg/dl (65-105)
[2023-09-11 17:20] LABS: Troponin I 0.021 ng/mL (0.000-0.034)
[2023-09-11 17:33] LABS: Procalcitonin 0.4 ng/mL
[2023-09-11] MEDS: ATORVASTATIN 40 MG TABLET 80 MG PO (21:02)
[2023-09-11] MEDS: SENNA/DOCUSATE SODIUM TABLET 1 TAB PO (21:03)
[2023-09-11] MEDS: MELATONIN 5 MG TABLET 10 MG PO (21:04)
[2023-09-11] MEDS: guaiFENesin 12 HR 600 MG TABCR 1200 MG PO (21:04)
[2023-09-11] MEDS: INSULIN GLARGINE (*BKC) 100 UNITS/ML 20 UNITS SUB-Q (21:05)
[2023-09-11 21:16] LABS: Glucose Point of Care 166 mg/dl (65-105)
[2023-09-11] MEDS: PANTOPRAZOLE 40 MG TABLET PO (22:00)
[2023-09-12] VITALS (13 sets, daily range): BP systolic 140–166; BP diastolic 57–69; PULSE 64–73; RESP 20; TEMP 36.2–37.9; O2SAT 91–99
[2023-09-12 05:25] LABS: Basophils Absolute Auto 0.1 K/mm3 (0.0-0.1); Basophils Percent Auto 0.5 % (0.2-1.2); Hematocrit 33.6 % (42.0-52.0); Hemoglobin 10.4 g/dL (14.0-18.0); Immature Granulocyte Absolute 0.15 K/mm3 (0.00-0.031); Immature Granulocyte Percent A 0.7 % (0-0.5); Lymphocytes Absolute Auto 1.64 K/mm3 (0.9-3.2); Lymphocytes Percent Auto 7.7 % (18.3-44.2); Mean Corpuscular Hemoglobin 27.7 pg (26-34); Mean Corpuscular Volume 89.6 fl (80-100); Mean Platelet Volume 10.5 fl (7.4-10.4); Monocytes Absolute Auto 1.5 K/mm3 (0.1-0.6); Monocytes Percent Auto 7.1 % (2.6-8.5); Platelet Count Result 278 k/mm3 (150-375); Red Blood Count 3.75 M/mm3 (4.6-6.20); Red Cell Distribution Width 14.3 % (11.5-14.5); White Blood Count 21.4 K/mm3 (4.5-10.0)
[2023-09-12 05:39] LABS: Alanine Aminotransferase 9 U/L (6-50); Albumin Level 2.9 g/dL (3.5-5.1); Alkaline Phosphatase 97 U/L (38-126); Anion Gap 3 mmol/L (4-12); Aspartate Amino Transferase 19 U/L (17-59); Bilirubin,Total 0.9 mg/dL (0.2-1.3); Blood Urea Nitrogen 18 mg/dL (9-20); Calcium 7.8 mg/dL (8.4-10.2); Carbon Dioxide 27 mmol/L (22-30); Chloride 103 mmol/L (98-107); Estimated CRCL calculation 33 ml/min; Estimated Glomerular Filt Rate 36; Glucose 71 mg/dL (65-110); Magnesium 1.5 mg/dL (1.6-2.3); Potassium 3.7 mmol/L (3.4-5.0); Sodium 133 mmol/L (137-145)
[2023-09-12 05:54] LABS: Hemoglobin A1C 7.6 % (<5.7)
[2023-09-12 05:55] LABS: Platelet Estimate Adequate (Adequate)
[2023-09-12 05:56] LABS: Anisocytosis 1+; Burr Cells 2+; Ovalocytes 1+; Schistocytes Rare
[2023-09-12] MEDS: glipiZIDE 5 MG TABLET 10 MG PO (06:10)
[2023-09-12] MEDS: polyethylene glycoL 3350 17 GM POWD.PACK PO (08:00)
[2023-09-12] MEDS: PARoxetine 20 MG TABLET 40 MG PO (08:00)
[2023-09-12] MEDS: FUROSEMIDE INJ 40 MG/4 ML VIAL 20 MG IV PUSH (08:00)
[2023-09-12] MEDS: OMEGA 3 POLYUNSAT FATTY ACIDS 1 GM CAP PO (08:00)
[2023-09-12] MEDS: carvediloL 12.5 MG TABLET 25 MG PO ×2 (08:01→17:07)
[2023-09-12] MEDS: GABAPENTIN 100 MG CAPSULE PO ×3 (08:01→17:07)
[2023-09-12] MEDS: CLOPIDOGREL BISULFATE 75 MG TABLET PO (08:01)
[2023-09-12] MEDS: guaiFENesin 12 HR 600 MG TABCR 1200 MG PO ×2 (08:01→21:12)
[2023-09-12] MEDS: PANTOPRAZOLE 40 MG TABLET PO (08:01)
[2023-09-12] MEDS: ASPIRIN 325 MG ENTERIC TABLET PO (08:01)
--- NOTE | 2023-09-12 08:07 | PM.IMPN ---
Progress Note: A&P Assessment and Plan (1) Acute respiratory failure with hypoxia: Code(s): J96.01 - Acute respiratory failure with hypoxia Status: Acute Assessment and Plan: SpO2 89% on admission with new oxygen requirement of 2L NC. - Wean oxygen supplementation as tolerated to maintain SpO2 >90% (2) Acute exacerbation of CHF (congestive heart failure): Code(s): I50.9 - Heart failure, unspecified Status: Acute Assessment and Plan: CHF likely due to hospital acquired pneumonia complicated by large pleural effusion. - Symptoms: Shortness of breath with new O2 requirement - Current medications: ramipril 10 mg daily - BNP: 57943 - EKG, initial: sinus rhythm, RBBB. similar to previous. - Chest XR 09/10: Small left pleural effusion with associated atelectasis and/or pneumonia in the left lower lung zone. - Echo 08/01/23: LVEF 60-65% and grade I diastolic dysfunction - Monitor vital signs, I&Os, BUN/creatinine, daily weights, neuro status and patient is a fall risk - Monitor serum electrolytes, Keep serum Potassium>4 and serum Magnesium>2 and CBC (3) Hospital-acquired pneumonia: Code(s): J18.9 - Pneumonia, unspecified organism; Y95 - Nosocomial condition Status: Acute Assessment and Plan: - Chest XR 09/10: Small left pleural effusion with associated atelectasis and/or pneumonia in the left lower lung zone. - CT chest moderate to large left pleural effusion with near complete left lower lobe atelectasis - Risk Factors: recent hospitalization - Complicating Factors: large pleural effusion and prior pneumococcal infection - started on HAP tx: vanc, cefe, flagyl - Viral PCR: Flu/COVID/RSV pending - MRSA pending - Blood cultures pending - Send sputum cultures - supplemental O2 requirement 1L NC. Oxygen via NC; wean as tolerated. Keep SpO2 greater than 88% - Monitor vital signs, I&Os, neuro status and patient is a fall risk - Follow WBC, serum electrolytes, temperature curves and cultures - Gentle IV fluid resuscitation (4) Pleural effusion: Code(s): J90 - Pleural effusion, not elsewhere classified Status: Acute Assessment and Plan: - See pneumonia #3 - CT chest moderate to large left pleural effusion with near complete left lower lobe atelectasis - Thoracentesis ordered - Holding plavix (5) Chest pain: Qualifiers: Chest pain type: unspecified Qualified Code(s): R07.9 - Chest pain, unspecified Code(s): R07.9 - Chest pain, unspecified Status: Acute Assessment and Plan: Chest pain on admission likely related to patients heart failure exacerbation. This has since resolved. - EKG, initial: sinus rhythm, RBBB. similar to previous. - CXR: Small left pleural effusion with associated atelectasis and/or pneumonia in the left lower lung zone. - Troponin: 0.013 -> 0.021 (remains within normal range) - nitro transdermal applied - telemetry monitoring (6) Constipation: Qualifiers: Constipation type: unspecified constipation type Qualified Code(s): K59.00 - Constipation, unspecified Code(s): K59.00 - Constipation, unspecified Status: Acute Assessment and Plan: Likely secondary to patients immobility and not being on any bowel regimen. He states he typically has 1 BM/week. - XR abdomen: no acute abdominal findings. - reviewed home med list, no medications taken regularly for constipation - Continue senna/docusate and miralax (7) Chronic kidney disease, stage 3: Qualifiers: Chronic kidney disease stage 3 subtype: stage 3b (GFR 30-44) Qualified Code(s): N18.32 - Chronic kidney disease, stage 3b Code(s): N18.30 - Chronic kidney disease, stage 3 unspecified Status: Chronic Assessment and Plan: Baseline Cr 1.8-2.5. - Continue to monitor with daily labs - Avoid nephrotoxic medications - Monitor I/O (8) Insulin dependent type 2 diabetes mellitus: Code(s): E11
[2023-09-12 08:22] LABS: Glucose Point of Care 90 mg/dl (65-105)
[2023-09-12] MEDS: ramipriL 5 MG CAPSULE 10 MG PO (09:30)
[2023-09-12 10:12] LABS: Lactic Acid Reflex 1.3 mmol/L (0.7-2.0)
[2023-09-12 11:40] LABS: Glucose Point of Care 148 mg/dl (65-105)
[2023-09-12] MEDS: metroNIDAZOLE 500 MG TABLET PO ×2 (14:17→21:11)
[2023-09-12] MEDS: CEFEPIME 2 GM/NS 50 ML 2 GM/50 ML BAG IVPB (14:17)
[2023-09-12 14:32] LABS: Appearance Urine Cloudy (Clear); Bacteria Urine None Seen /hpf; Bilirubin Urine Negative (Negative); Blood Urine Negative (Negative); Color Urine Yellow (Yellow); Glucose Urine UA 1+ mg/dL (Negative); Ketones Urine Negative (Negative); Leukocyte Esterase Ur Negative LEU/UL (Negative); Mucus Urine Present /lpf; Need Manual Microscopic Reviewed; Nitrate Urine Negative (Negative); Protein Urine 4+ mg/dL (Negative); RBC Urine 0-2 /hpf (0-2); Squamous Epithelial Cell Urine None Seen /hpf (Few); Urobilinogen Urine 0.2 mg/dL (<2.0); WBC Urine 0-5 /hpf (0-3)
[2023-09-12 14:33] LABS: Add Urine Microscopic? YES
[2023-09-12] MEDS: VANCOMYCIN 2,000 MG/NS 500 ML 2,000 MG/500 ML BAG 250 MG IVPB (14:57)
[2023-09-12 15:36] LABS: MRSA (PCR) NOT DETECTED (NOT DETECTE)
[2023-09-12 15:41] LABS: INR 1.3
[2023-09-12 16:45] LABS: Glucose Point of Care 58 mg/dl (65-105)
[2023-09-12 17:06] LABS: Influenza A QL RT-PCR Negative (Negative); Influenza B QL RT-PCR Negative (Negative); RSV RNA, RT-PCR Negative (Negative); SARS-CoV-2 RNA PCR Negative (Negative)
[2023-09-12 17:16] LABS: Albumin Level 3.1 g/dL (3.5-5.1); Amylase 55 U/L (30-110); Bilirubin,Total 0.7 mg/dL (0.2-1.3); Cholesterol 145 mg/dL (0-200); Glucose 64 mg/dL (65-110); Lactate Dehydrogenase 210 U/L (120-246); Triglycerides 99 mg/dL (<150)
[2023-09-12 17:23] LABS: Glucose Point of Care 63 mg/dl (65-105)
[2023-09-12 17:58] LABS: Glucose Point of Care 81 mg/dl (65-105)
[2023-09-12] MEDS: SENNA/DOCUSATE SODIUM TABLET 1 TAB PO (21:11)
[2023-09-12] MEDS: MELATONIN 5 MG TABLET 10 MG PO (21:12)
[2023-09-12] MEDS: ATORVASTATIN 40 MG TABLET 80 MG PO (21:12)
[2023-09-12 21:24] LABS: Glucose Point of Care 90 mg/dl (65-105)
[2023-09-12] MEDS: ACETAMINOPHEN 325 MG TABLET 650 MG PO (22:57)
[2023-09-12] MEDS: INSULIN GLARGINE (*BKC) 100 UNITS/ML 10 UNITS SUB-Q (22:58)
--- NOTE | 2023-09-12 23:06 | PC.NURSE ---
Pt's assessment has been completed by Sunshine Abbott, on this date. I have reviewed all her charting and agree with her documentation at this time.
[2023-09-13] VITALS (13 sets, daily range): BP systolic 142–144; BP diastolic 52–66; PULSE 66–77; RESP 18–20; TEMP 36.9–37.9; O2SAT 92–98
[2023-09-13] MEDS: CEFEPIME 2 GM/NS 50 ML 2 GM/50 ML BAG IVPB ×2 (03:09→15:04)
[2023-09-13] MEDS: metroNIDAZOLE 500 MG TABLET PO ×3 (05:09→20:43)
[2023-09-13 05:25] LABS: Glucose Point of Care 88 mg/dl (65-105)
[2023-09-13] MEDS: SODIUM CHLOR 3% 15 ML NEB (RESPIRATORY THERAPY) 6 ML INHALATION (05:30)
[2023-09-13 06:31] LABS: Estimated CRCL calculation 28 ml/min; Estimated Glomerular Filt Rate 29
--- NOTE | 2023-09-13 07:22 | PM.IMPN ---
Progress Note: A&P Assessment and Plan (1) Acute respiratory failure with hypoxia: Code(s): J96.01 - Acute respiratory failure with hypoxia Status: Acute Assessment and Plan: SpO2 89% on admission with new oxygen requirement of 2L NC. - Wean oxygen supplementation as tolerated to maintain SpO2 >90% Patient back to baseline room air. (2) Acute exacerbation of CHF (congestive heart failure): Code(s): I50.9 - Heart failure, unspecified Status: Acute Assessment and Plan: CHF likely due to hospital acquired pneumonia complicated by large pleural effusion. - Symptoms: Shortness of breath with new O2 requirement - Current medications: ramipril 10 mg daily - BNP: 13353 - EKG, initial: sinus rhythm, RBBB. similar to previous. - Chest XR 09/10: Small left pleural effusion with associated atelectasis and/or pneumonia in the left lower lung zone. - Echo 08/01/23: LVEF 60-65% and grade I diastolic dysfunction - Monitor vital signs, I&Os, BUN/creatinine, daily weights, neuro status and patient is a fall risk - Monitor serum electrolytes, Keep serum Potassium>4 and serum Magnesium>2 and CBC (3) Hospital-acquired pneumonia: Code(s): J18.9 - Pneumonia, unspecified organism; Y95 - Nosocomial condition Status: Acute Assessment and Plan: - Chest XR 09/10: Small left pleural effusion with associated atelectasis and/or pneumonia in the left lower lung zone. - CT chest moderate to large left pleural effusion with near complete left lower lobe atelectasis - Risk Factors: recent hospitalization - Complicating Factors: large pleural effusion and prior pneumococcal infection - started on HAP tx: cefe, flagyl - Viral PCR: Flu/COVID/RSV negative - MRSA negative, vanc discontinued 09/12 - Blood cultures collected on 09/11: NGTD - Send sputum cultures - No supplemental O2 requirement. Keep SpO2 greater than 90% - Monitor vital signs, I&Os, neuro status and patient is a fall risk - Follow WBC, serum electrolytes, temperature curves and cultures - Gentle IV fluid resuscitation (4) Pleural effusion: Code(s): J90 - Pleural effusion, not elsewhere classified Status: Acute Assessment and Plan: - See pneumonia #3 - CT chest moderate to large left pleural effusion with near complete left lower lobe atelectasis - Thoracentesis ordered - Holding plavix, started on heparin for DVT ppx will stop the night prior to thoracentesis (5) Chest pain: Qualifiers: Chest pain type: unspecified Qualified Code(s): R07.9 - Chest pain, unspecified Code(s): R07.9 - Chest pain, unspecified Status: Acute Assessment and Plan: Chest pain on admission likely related to patients heart failure exacerbation. This has since resolved. - EKG, initial: sinus rhythm, RBBB. similar to previous. - CXR: Small left pleural effusion with associated atelectasis and/or pneumonia in the left lower lung zone. - Troponin: 0.013 -> 0.021 (remains within normal range) - nitro transdermal applied - telemetry monitoring (6) Constipation: Qualifiers: Constipation type: unspecified constipation type Qualified Code(s): K59.00 - Constipation, unspecified Code(s): K59.00 - Constipation, unspecified Status: Acute Assessment and Plan: Likely secondary to patients immobility and not being on any bowel regimen. He states he typically has 1 BM/week. - XR abdomen: no acute abdominal findings. - reviewed home med list, no medications taken regularly for constipation - Continue senna/docusate and miralax (7) Chronic kidney disease, stage 3: Qualifiers: Chronic kidney disease stage 3 subtype: stage 3b (GFR 30-44) Qualified Code(s): N18.32 - Chronic kidney disease, stage 3b Code(s): N18.30 - Chronic kidney disease, stage 3 unspecified Status: Chronic Assessment and Plan: Baseline Cr 1.8-2.5. - Continue to monitor with daily labs - Janet
[2023-09-13 07:55] LABS: Glucose Point of Care 114 mg/dl (65-105)
[2023-09-13 08:47] LABS: Basophils Absolute Auto 0.1 K/mm3 (0.0-0.1); Basophils Percent Auto 0.6 % (0.2-1.2); Eosinophils Absolute Auto 0.2 K/mm3 (0-0.3); Eosinophils Percent Auto 1.1 % (0-4.4); Hematocrit 31.3 % (42.0-52.0); Hemoglobin 9.8 g/dL (14.0-18.0); Immature Granulocyte Absolute 0.15 K/mm3 (0.00-0.031); Immature Granulocyte Percent A 0.8 % (0-0.5); Lymphocytes Percent Auto 8.8 % (18.3-44.2); Mean Corpuscular HGB Conc 31.3 g/dl (32-36); Mean Corpuscular Hemoglobin 27.5 pg (26-34); Mean Corpuscular Volume 87.9 fl (80-100); Mean Platelet Volume 11.5 fl (7.4-10.4); Monocytes Absolute Auto 1.5 K/mm3 (0.1-0.6); Monocytes Percent Auto 8.1 % (2.6-8.5); Neutrophils Absolute Auto 14.6 K/mm3 (1.3-6.7); Neutrophils Percent Auto 80.6 % (45.5-73.1); Platelet Count Result 238 k/mm3 (150-375); Red Blood Count 3.56 M/mm3 (4.6-6.20); Red Cell Distribution Width 14.3 % (11.5-14.5); White Blood Count 18.1 K/mm3 (4.5-10.0)
[2023-09-13] MEDS: ASPIRIN 325 MG ENTERIC TABLET PO (08:59)
[2023-09-13] MEDS: polyethylene glycoL 3350 17 GM POWD.PACK PO (08:59)
[2023-09-13] MEDS: OMEGA 3 POLYUNSAT FATTY ACIDS 1 GM CAP PO (08:59)
[2023-09-13] MEDS: carvediloL 25 MG TABLET PO ×2 (08:59→16:43)
[2023-09-13] MEDS: GABAPENTIN 100 MG CAPSULE PO ×3 (08:59→16:44)
[2023-09-13] MEDS: PANTOPRAZOLE 40 MG TABLET PO (09:00)
[2023-09-13] MEDS: PARoxetine 20 MG TABLET 40 MG PO (09:00)
[2023-09-13] MEDS: guaiFENesin 12 HR 600 MG TABCR 1200 MG PO ×2 (09:00→20:43)
[2023-09-13] MEDS: FUROSEMIDE INJ 40 MG/4 ML VIAL 20 MG IV PUSH (09:01)
[2023-09-13 09:03] LABS: Alanine Aminotransferase 10 U/L (6-50); Albumin Level 2.7 g/dL (3.5-5.1); Alkaline Phosphatase 95 U/L (38-126); Anion Gap 6 mmol/L (4-12); Aspartate Amino Transferase 20 U/L (17-59); Bilirubin,Total 0.4 mg/dL (0.2-1.3); Blood Urea Nitrogen 27 mg/dL (9-20); Calcium 7.5 mg/dL (8.4-10.2); Carbon Dioxide 26 mmol/L (22-30); Chloride 100 mmol/L (98-107); Estimated CRCL calculation 29 ml/min; Estimated Glomerular Filt Rate 31; Glucose 99 mg/dL (65-110); Potassium 3.4 mmol/L (3.4-5.0); Sodium 132 mmol/L (137-145)
[2023-09-13] MEDS: ramipriL 5 MG CAPSULE 10 MG PO (09:07)
[2023-09-13 11:49] LABS: Glucose Point of Care 124 mg/dl (65-105)
[2023-09-13 12:34] LABS: Glucose Point of Care 112 mg/dl (65-105)
[2023-09-13 16:02] LABS: Glucose Point of Care 199 mg/dl (65-105)
[2023-09-13 20:17] LABS: Glucose Point of Care 212 mg/dl (65-105)
[2023-09-13] MEDS: ATORVASTATIN 40 MG TABLET 80 MG PO (20:43)
[2023-09-13] MEDS: INSULIN GLARGINE (*BKC) 100 UNITS/ML 20 UNITS SUB-Q (20:44)
[2023-09-13] MEDS: HEPARIN SODIUM 5,000 UNITS/ML VIAL 5000 UNITS SUB-Q (20:44)
[2023-09-13] MEDS: SENNA/DOCUSATE SODIUM TABLET 1 TAB PO (20:44)
[2023-09-13] MEDS: MELATONIN 5 MG TABLET 10 MG PO (20:44)
[2023-09-14] VITALS (15 sets, daily range): BP systolic 131–156; BP diastolic 48–59; PULSE 56–73; RESP 18–20; TEMP 35.9–37; O2SAT 94–96
[2023-09-14] MEDS: CEFEPIME 2 GM/NS 50 ML 2 GM/50 ML BAG IVPB ×2 (03:23→14:04)
[2023-09-14] MEDS: SODIUM CHLOR 3% 15 ML NEB (RESPIRATORY THERAPY) 6 ML INHALATION (05:28)
--- NOTE | 2023-09-14 05:42 | PCRCNOTE ---
patient was unable to submit a sputum sample
[2023-09-14] MEDS: glipiZIDE 5 MG TABLET 10 MG PO ×2 (06:11→16:28)
[2023-09-14] MEDS: metroNIDAZOLE 500 MG TABLET PO ×2 (06:11→13:31)
[2023-09-14 06:41] LABS: Alanine Aminotransferase 8 U/L (6-50); Albumin Level 2.5 g/dL (3.5-5.1); Alkaline Phosphatase 84 U/L (38-126); Anion Gap 4 mmol/L (4-12); Aspartate Amino Transferase 19 U/L (17-59); Basophils Absolute Auto 0.1 K/mm3 (0.0-0.1); Basophils Percent Auto 0.5 % (0.2-1.2); Bilirubin,Total 0.4 mg/dL (0.2-1.3); Blood Urea Nitrogen 32 mg/dL (9-20); Calcium 7.4 mg/dL (8.4-10.2); Carbon Dioxide 27 mmol/L (22-30); Chloride 102 mmol/L (98-107); Eosinophils Absolute Auto 0.3 K/mm3 (0-0.3); Eosinophils Percent Auto 1.7 % (0-4.4); Estimated CRCL calculation 32 ml/min; Estimated Glomerular Filt Rate 29; Glucose 88 mg/dL (65-110); Hematocrit 28.1 % (42.0-52.0); Hemoglobin 8.7 g/dL (14.0-18.0); Immature Granulocyte Absolute 0.14 K/mm3 (0.00-0.031); Immature Granulocyte Percent A 0.9 % (0-0.5); Lymphocytes Absolute Auto 1.53 K/mm3 (0.9-3.2); Lymphocytes Percent Auto 10.2 % (18.3-44.2); Mean Corpuscular Hemoglobin 27.1 pg (26-34); Mean Corpuscular Volume 87.5 fl (80-100); Mean Platelet Volume 11.2 fl (7.4-10.4); Monocytes Absolute Auto 1.1 K/mm3 (0.1-0.6); Monocytes Percent Auto 7.5 % (2.6-8.5); Neutrophils Absolute Auto 11.9 K/mm3 (1.3-6.7); Neutrophils Percent Auto 79.2 % (45.5-73.1); Platelet Count Result 250 k/mm3 (150-375); Potassium 3.3 mmol/L (3.4-5.0); Red Blood Count 3.21 M/mm3 (4.6-6.20); Red Cell Distribution Width 14.1 % (11.5-14.5); Sodium 133 mmol/L (137-145)
[2023-09-14 06:43] LABS: Glucose Point of Care 75 mg/dl (65-105)
[2023-09-14 07:38] LABS: Glucose Point of Care 70 mg/dl (65-105)
--- NOTE | 2023-09-14 07:54 | PM.IMPN ---
Progress Note: A&P Assessment and Plan (1) Acute respiratory failure with hypoxia: Code(s): J96.01 - Acute respiratory failure with hypoxia Status: Acute Assessment and Plan: SpO2 89% on admission with new oxygen requirement of 2L NC. - Wean oxygen supplementation as tolerated to maintain SpO2 >90% Patient remains on 1L NC. (2) Acute exacerbation of CHF (congestive heart failure): Code(s): I50.9 - Heart failure, unspecified Status: Acute Assessment and Plan: CHF likely due to hospital acquired pneumonia complicated by large pleural effusion. - Symptoms: Shortness of breath with new O2 requirement - Current medications: ramipril 10 mg daily - Lasix 20 mg IV daily - BNP: 29122 - EKG, initial: sinus rhythm, RBBB. similar to previous. - Chest XR 09/10: Small left pleural effusion with associated atelectasis and/or pneumonia in the left lower lung zone. - Echo 08/01/23: LVEF 60-65% and grade I diastolic dysfunction - Monitor vital signs, I&Os, BUN/creatinine, daily weights, neuro status and patient is a fall risk - Monitor serum electrolytes, Keep serum Potassium>4 and serum Magnesium>2 and CBC (3) Hospital-acquired pneumonia: Code(s): J18.9 - Pneumonia, unspecified organism; Y95 - Nosocomial condition Status: Acute Assessment and Plan: - Chest XR 09/10: Small left pleural effusion with associated atelectasis and/or pneumonia in the left lower lung zone. - CT chest moderate to large left pleural effusion with near complete left lower lobe atelectasis - Risk Factors: recent hospitalization - Complicating Factors: large pleural effusion and prior pneumococcal infection - started on HAP tx: cefe, flagyl - Viral PCR: Flu/COVID/RSV negative - MRSA negative, vanc discontinued 09/12 - Blood cultures collected on 09/11: NGTD - Send sputum cultures - 1L NC supplemental O2 requirement. Keep SpO2 greater than 90% - Monitor vital signs, I&Os, neuro status and patient is a fall risk - Follow WBC, serum electrolytes, temperature curves and cultures - Gentle IV fluid resuscitation (4) Pleural effusion: Code(s): J90 - Pleural effusion, not elsewhere classified Status: Acute Assessment and Plan: - See pneumonia #3 - CT chest moderate to large left pleural effusion with near complete left lower lobe atelectasis - Thoracentesis ordered - Holding plavix, started on heparin for DVT ppx will stop the night prior to thoracentesis (5) Cholecystitis: Code(s): K81.9 - Cholecystitis, unspecified Status: Acute Assessment and Plan: Patient endorses RUQ pain for past week. Positive [place] sign on exam. LFTs and tot bili WNL. - CT chest: Images through the upper abdomen reveal distended gallbladder. - RUQ US: Dilated gallbladder with wall thickening and sludge and tiny gallstones, the latter evident on prior CT which is suspicious for acute cholecystitis however the sonographic Perry sign was reported as negative. - HIDA ordered (6) Chest pain: Qualifiers: Chest pain type: unspecified Qualified Code(s): R07.9 - Chest pain, unspecified Code(s): R07.9 - Chest pain, unspecified Status: Acute Assessment and Plan: Chest pain on admission likely related to patients heart failure exacerbation. This has since resolved. - EKG, initial: sinus rhythm, RBBB. similar to previous. - CXR: Small left pleural effusion with associated atelectasis and/or pneumonia in the left lower lung zone. - Troponin: 0.013 -> 0.021 (remains within normal range) - nitro transdermal applied - telemetry monitoring (7) Constipation: Qualifiers: Constipation type: unspecified constipation type Qualified Code(s): K59.00 - Constipation, unspecified Code(s): K59.00 - Constipation, unspecified Status: Acute Assessment and Plan: Likely secondary to patients immobility and not being on any bowel regimen. He states he typically
[2023-09-14] MEDS: PARoxetine 20 MG TABLET 40 MG PO (08:20)
[2023-09-14] MEDS: FUROSEMIDE INJ 40 MG/4 ML VIAL 20 MG IV PUSH (08:20)
[2023-09-14] MEDS: carvediloL 25 MG TABLET PO ×2 (08:20→16:28)
[2023-09-14] MEDS: POTASSIUM CHLORIDE 20 MEQ ER TABLET 40 MEQ PO (08:20)
[2023-09-14] MEDS: polyethylene glycoL 3350 17 GM POWD.PACK PO (08:20)
[2023-09-14] MEDS: ramipriL 5 MG CAPSULE 10 MG PO (08:20)
[2023-09-14] MEDS: OMEGA 3 POLYUNSAT FATTY ACIDS 1 GM CAP PO (08:20)
[2023-09-14] MEDS: HEPARIN SODIUM 5,000 UNITS/ML VIAL 5000 UNITS SUB-Q ×2 (08:21→21:45)
[2023-09-14] MEDS: guaiFENesin 12 HR 600 MG TABCR 1200 MG PO (08:21)
[2023-09-14] MEDS: PANTOPRAZOLE 40 MG TABLET PO (08:21)
[2023-09-14] MEDS: GABAPENTIN 100 MG CAPSULE PO ×3 (08:21→16:28)
[2023-09-14] MEDS: ASPIRIN 325 MG ENTERIC TABLET PO (08:21)
--- NOTE | 2023-09-14 09:33 | PCPTNOTE ---
Attempted to see patient for Physical Therapy this AM. Patient stated that he was not feeling good and preferred not to do therapy today. Patient's family member stated that he was complaining that his side hurt. RN notified. Will continue Physical Therapy per plan of care.
[2023-09-14 11:36] LABS: Glucose Point of Care 157 mg/dl (65-105)
[2023-09-14 16:38] LABS: Glucose Point of Care 129 mg/dl (65-105)
[2023-09-14 20:27] LABS: Glucose Point of Care 150 mg/dl (65-105)
[2023-09-14] MEDS: INSULIN GLARGINE (*BKC) 100 UNITS/ML 20 UNITS SUB-Q (21:45)
[2023-09-15] VITALS (11 sets, daily range): BP systolic 164; BP diastolic 62; PULSE 61–75; RESP 18; TEMP 37.8; O2SAT 93–95
[2023-09-15] MEDS: CEFEPIME 2 GM/NS 50 ML 2 GM/50 ML BAG IVPB ×2 (03:30→14:09)
[2023-09-15] MEDS: glipiZIDE 5 MG TABLET 10 MG PO (06:06)
[2023-09-15] MEDS: metroNIDAZOLE 500 MG TABLET PO ×3 (06:06→20:15)
[2023-09-15 06:17] LABS: Basophils Absolute Auto 0.1 K/mm3 (0.0-0.1); Basophils Percent Auto 0.6 % (0.2-1.2); Eosinophils Absolute Auto 0.2 K/mm3 (0-0.3); Eosinophils Percent Auto 1.5 % (0-4.4); Hematocrit 30.9 % (42.0-52.0); Hemoglobin 9.7 g/dL (14.0-18.0); Immature Granulocyte Absolute 0.13 K/mm3 (0.00-0.031); Immature Granulocyte Percent A 0.8 % (0-0.5); Lymphocytes Percent Auto 7.7 % (18.3-44.2); Mean Corpuscular HGB Conc 31.4 g/dl (32-36); Mean Corpuscular Hemoglobin 27.6 pg (26-34); Mean Corpuscular Volume 87.8 fl (80-100); Mean Platelet Volume 11.7 fl (7.4-10.4); Monocytes Absolute Auto 1.1 K/mm3 (0.1-0.6); Monocytes Percent Auto 7.1 % (2.6-8.5); Neutrophils Absolute Auto 12.8 K/mm3 (1.3-6.7); Neutrophils Percent Auto 82.3 % (45.5-73.1); Platelet Count Result 266 k/mm3 (150-375); Red Blood Count 3.52 M/mm3 (4.6-6.20); Red Cell Distribution Width 14.5 % (11.5-14.5); White Blood Count 15.6 K/mm3 (4.5-10.0)
[2023-09-15 06:23] LABS: Alanine Aminotransferase 9 U/L (6-50); Albumin Level 2.8 g/dL (3.5-5.1); Alkaline Phosphatase 96 U/L (38-126); Anion Gap 6 mmol/L (4-12); Aspartate Amino Transferase 21 U/L (17-59); Bilirubin,Total 0.4 mg/dL (0.2-1.3); Blood Urea Nitrogen 31 mg/dL (9-20); Carbon Dioxide 23 mmol/L (22-30); Chloride 106 mmol/L (98-107); Estimated CRCL calculation 33 ml/min; Estimated Glomerular Filt Rate 31; Glucose 65 mg/dL (65-110); Potassium 3.9 mmol/L (3.4-5.0); Sodium 135 mmol/L (137-145)
--- NOTE | 2023-09-15 06:40 | PM.IMPN ---
Progress Note: A&P Assessment and Plan (1) Acute respiratory failure with hypoxia: Code(s): J96.01 - Acute respiratory failure with hypoxia Status: Acute Assessment and Plan: SpO2 89% on admission with new oxygen requirement of 2L NC. - Wean oxygen supplementation as tolerated to maintain SpO2 >90% Patient remains on 1L NC. (2) Acute exacerbation of CHF (congestive heart failure): Code(s): I50.9 - Heart failure, unspecified Status: Acute Assessment and Plan: CHF likely due to hospital acquired pneumonia complicated by large pleural effusion. - Symptoms: Shortness of breath with new O2 requirement - Current medications: ramipril 10 mg daily - Lasix 20 mg IV daily - BNP: 12982 - EKG, initial: sinus rhythm, RBBB. similar to previous. - Chest XR 09/10: Small left pleural effusion with associated atelectasis and/or pneumonia in the left lower lung zone. - Echo 08/01/23: LVEF 60-65% and grade I diastolic dysfunction - Monitor vital signs, I&Os, BUN/creatinine, daily weights, neuro status and patient is a fall risk - Monitor serum electrolytes, Keep serum Potassium>4 and serum Magnesium>2 and CBC (3) Hospital-acquired pneumonia: Code(s): J18.9 - Pneumonia, unspecified organism; Y95 - Nosocomial condition Status: Acute Assessment and Plan: - Chest XR 09/10: Small left pleural effusion with associated atelectasis and/or pneumonia in the left lower lung zone. - CT chest moderate to large left pleural effusion with near complete left lower lobe atelectasis - Risk Factors: recent hospitalization - Complicating Factors: large pleural effusion and prior pneumococcal infection - started on HAP tx: cefe, flagyl - Viral PCR: Flu/COVID/RSV negative - MRSA negative, vanc discontinued 09/12 - Blood cultures collected on 09/11: NGTD - Send sputum cultures - 1L NC supplemental O2 requirement. Keep SpO2 greater than 90% - Monitor vital signs, I&Os, neuro status and patient is a fall risk - Follow WBC, serum electrolytes, temperature curves and cultures - Gentle IV fluid resuscitation (4) Pleural effusion: Code(s): J90 - Pleural effusion, not elsewhere classified Status: Acute Assessment and Plan: - See pneumonia #3 - CT chest moderate to large left pleural effusion with near complete left lower lobe atelectasis - Thoracentesis ordered, scheduled for stephen - Holding plavix, started on heparin for DVT ppx will stop the night prior to thoracentesis (5) Cholecystitis: Code(s): K81.9 - Cholecystitis, unspecified Status: Acute Assessment and Plan: Patient endorses RUQ pain for past week. LFTs and tot bili WNL. - CT chest: Images through the upper abdomen reveal distended gallbladder. - RUQ US: Dilated gallbladder with wall thickening and sludge and tiny gallstones, the latter evident on prior CT which is suspicious for acute cholecystitis however the sonographic Perry sign was reported as negative. - HIDA ordered, will be obtained in the am. Patient to be NPO at midnight (6) Chest pain: Qualifiers: Chest pain type: unspecified Qualified Code(s): R07.9 - Chest pain, unspecified Code(s): R07.9 - Chest pain, unspecified Status: Acute Assessment and Plan: Chest pain on admission likely related to patients heart failure exacerbation. This has since resolved. - EKG, initial: sinus rhythm, RBBB. similar to previous. - CXR: Small left pleural effusion with associated atelectasis and/or pneumonia in the left lower lung zone. - Troponin: 0.013 -> 0.021 (remains within normal range) - nitro transdermal applied - telemetry monitoring (7) Constipation: Qualifiers: Constipation type: unspecified constipation type Qualified Code(s): K59.00 - Constipation, unspecified Code(s): K59.00 - Constipation, unspecified Status: Acute Assessment and Plan: Likely secondary to patients immobility and not
[2023-09-15 08:06] LABS: Glucose Point of Care 52 mg/dl (65-105)
[2023-09-15 08:06] LABS: Glucose Point of Care 51 mg/dl (65-105)
[2023-09-15] MEDS: GLUCOSE ORAL GEL 15 GM OF GLUCSE IN 37.5 GM TUBE PO (08:06)
[2023-09-15] MEDS: FUROSEMIDE INJ 40 MG/4 ML VIAL 20 MG IV PUSH (08:11)
[2023-09-15] MEDS: polyethylene glycoL 3350 17 GM POWD.PACK PO (08:11)
[2023-09-15] MEDS: ramipriL 5 MG CAPSULE 10 MG PO (08:12)
[2023-09-15] MEDS: OMEGA 3 POLYUNSAT FATTY ACIDS 1 GM CAP PO (08:12)
[2023-09-15] MEDS: guaiFENesin 12 HR 600 MG TABCR 1200 MG PO ×2 (08:12→20:13)
[2023-09-15] MEDS: PANTOPRAZOLE 40 MG TABLET PO (08:12)
[2023-09-15] MEDS: GABAPENTIN 100 MG CAPSULE PO ×3 (08:12→16:10)
[2023-09-15] MEDS: HEPARIN SODIUM 5,000 UNITS/ML VIAL 5000 UNITS SUB-Q ×2 (08:12→20:14)
[2023-09-15] MEDS: ASPIRIN 325 MG ENTERIC TABLET PO (08:12)
[2023-09-15] MEDS: PARoxetine 20 MG TABLET 40 MG PO (08:12)
[2023-09-15] MEDS: carvediloL 25 MG TABLET PO ×2 (08:12→16:10)
[2023-09-15 08:43] LABS: Glucose Point of Care 85 mg/dl (65-105)
[2023-09-15 11:38] LABS: Glucose Point of Care 166 mg/dl (65-105)
[2023-09-15] MEDS: ACETAMINOPHEN 325 MG TABLET 650 MG PO (13:13)
--- NOTE | 2023-09-15 13:53 | PCOTNOTE ---
Attempted to see pt for OT treatment this afternoon. Pt declined to participate in therapeutic activities and/or self care tasks due to not feeling up to it...I'm depressed. Pt is educated on the importance of participation in therapy services for increase independence with daily tasks in order to return home. Pt understanding education and states I will do it on Saturday following procedure. RN is aware of pt's refusal. Will continue per poc duration/frequency tomorrow.
[2023-09-15 16:15] LABS: Glucose Point of Care 200 mg/dl (65-105)
[2023-09-15] MEDS: SENNA/DOCUSATE SODIUM TABLET 1 TAB PO (20:13)
[2023-09-15] MEDS: ATORVASTATIN 40 MG TABLET 80 MG PO (20:14)
[2023-09-15] MEDS: MELATONIN 5 MG TABLET 10 MG PO (20:16)
[2023-09-15] MEDS: INSULIN GLARGINE (*BKC) 100 UNITS/ML 20 UNITS SUB-Q (20:17)
[2023-09-15 20:58] LABS: Glucose Point of Care 182 mg/dl (65-105)
[2023-09-16] VITALS (11 sets, daily range): BP systolic 141–169; BP diastolic 50–64; PULSE 56–71; RESP 16–20; TEMP 36–37.2; O2SAT 93–96
[2023-09-16] MEDS: CEFEPIME 2 GM/NS 50 ML 2 GM/50 ML BAG IVPB ×2 (02:44→14:07)
[2023-09-16 04:19] LABS: Basophils Absolute Auto 0.1 K/mm3 (0.0-0.1); Basophils Percent Auto 0.5 % (0.2-1.2); Eosinophils Absolute Auto 0.3 K/mm3 (0-0.3); Hematocrit 29.2 % (42.0-52.0); Hemoglobin 9.2 g/dL (14.0-18.0); Immature Granulocyte Absolute 0.14 K/mm3 (0.00-0.031); Immature Granulocyte Percent A 0.9 % (0-0.5); Lymphocytes Absolute Auto 1.32 K/mm3 (0.9-3.2); Lymphocytes Percent Auto 8.6 % (18.3-44.2); Mean Corpuscular HGB Conc 31.5 g/dl (32-36); Mean Corpuscular Hemoglobin 27.5 pg (26-34); Mean Corpuscular Volume 87.4 fl (80-100); Mean Platelet Volume 11.3 fl (7.4-10.4); Monocytes Absolute Auto 1.3 K/mm3 (0.1-0.6); Monocytes Percent Auto 8.7 % (2.6-8.5); Neutrophils Absolute Auto 12.1 K/mm3 (1.3-6.7); Neutrophils Percent Auto 79.3 % (45.5-73.1); Platelet Count Result 233 k/mm3 (150-375); Red Blood Count 3.34 M/mm3 (4.6-6.20); Red Cell Distribution Width 14.5 % (11.5-14.5); White Blood Count 15.3 K/mm3 (4.5-10.0)
[2023-09-16 04:39] LABS: Alanine Aminotransferase 8 U/L (6-50); Albumin Level 2.6 g/dL (3.5-5.1); Alkaline Phosphatase 104 U/L (38-126); Anion Gap 2 mmol/L (4-12); Aspartate Amino Transferase 21 U/L (17-59); Bilirubin,Total 0.3 mg/dL (0.2-1.3); Blood Urea Nitrogen 29 mg/dL (9-20); Calcium 7.9 mg/dL (8.4-10.2); Carbon Dioxide 26 mmol/L (22-30); Chloride 105 mmol/L (98-107); Estimated CRCL calculation 36 ml/min; Estimated Glomerular Filt Rate 34; Glucose 93 mg/dL (65-110); Potassium 3.9 mmol/L (3.4-5.0); Sodium 133 mmol/L (137-145)
[2023-09-16] MEDS: metroNIDAZOLE 500 MG TABLET PO ×3 (05:22→20:39)
--- NOTE | 2023-09-16 07:54 | PM.IMPN ---
Progress Note: A&P Assessment and Plan (1) Acute respiratory failure with hypoxia: Code(s): J96.01 - Acute respiratory failure with hypoxia Status: Acute Assessment and Plan: SpO2 89% on admission with new oxygen requirement of 2L NC. - Wean oxygen supplementation as tolerated to maintain SpO2 >90% Patient remains on 1L NC. (2) Acute exacerbation of CHF (congestive heart failure): Code(s): I50.9 - Heart failure, unspecified Status: Acute Assessment and Plan: CHF likely due to hospital acquired pneumonia complicated by large pleural effusion. - Symptoms: Shortness of breath with new O2 requirement - Current medications: ramipril 10 mg daily - Lasix 20 mg IV daily - BNP: 56209 - EKG, initial: sinus rhythm, RBBB. similar to previous. - Chest XR 09/10: Small left pleural effusion with associated atelectasis and/or pneumonia in the left lower lung zone. - Echo 08/01/23: LVEF 60-65% and grade I diastolic dysfunction - Monitor vital signs, I&Os, BUN/creatinine, daily weights, neuro status and patient is a fall risk - Monitor serum electrolytes, Keep serum Potassium>4 and serum Magnesium>2 and CBC (3) Hospital-acquired pneumonia: Code(s): J18.9 - Pneumonia, unspecified organism; Y95 - Nosocomial condition Status: Acute Assessment and Plan: - Chest XR 09/10: Small left pleural effusion with associated atelectasis and/or pneumonia in the left lower lung zone. - CT chest moderate to large left pleural effusion with near complete left lower lobe atelectasis - Risk Factors: recent hospitalization - Complicating Factors: large pleural effusion and prior pneumococcal infection - started on HAP tx: cefe, flagyl - Viral PCR: Flu/COVID/RSV negative - MRSA negative, vanc discontinued 09/12 - Blood cultures collected on 09/11: NGTD - Send sputum cultures - 1L NC supplemental O2 requirement. Keep SpO2 greater than 90% - Monitor vital signs, I&Os, neuro status and patient is a fall risk - Follow WBC, serum electrolytes, temperature curves and cultures - Gentle IV fluid resuscitation (4) Pleural effusion: Code(s): J90 - Pleural effusion, not elsewhere classified Status: Acute Assessment and Plan: - See pneumonia #3 - CT chest moderate to large left pleural effusion with near complete left lower lobe atelectasis - Thoracentesis ordered, scheduled for stephen - Holding plavix, started on heparin for DVT ppx will stop the night prior to thoracentesis (5) Cholecystitis: Code(s): K81.9 - Cholecystitis, unspecified Status: Acute Assessment and Plan: Patient endorses RUQ pain for past week. LFTs and tot bili WNL. - CT chest: Images through the upper abdomen reveal distended gallbladder. - RUQ US: Dilated gallbladder with wall thickening and sludge and tiny gallstones, the latter evident on prior CT which is suspicious for acute cholecystitis however the sonographic Perry sign was reported as negative. - HIDA 09/15: acute cholecystitis - Surgery consulted Patient is a poor surgical candidate at this time. Will set up a percutaneous cholecystotomy tube and continue antibiotics - Antibiotics: Cefe and flagyl (6) Chest pain: Qualifiers: Chest pain type: unspecified Qualified Code(s): R07.9 - Chest pain, unspecified Code(s): R07.9 - Chest pain, unspecified Status: Acute Assessment and Plan: Chest pain on admission likely related to patients heart failure exacerbation. This has since resolved. - EKG, initial: sinus rhythm, RBBB. similar to previous. - CXR: Small left pleural effusion with associated atelectasis and/or pneumonia in the left lower lung zone. - Troponin: 0.013 -> 0.021 (remains within normal range) - nitro transdermal applied - telemetry monitoring (7) Constipation: Qualifiers: Constipation type: unspecified constipation type Qualified Code(s): K59.00 - Constipation, unspecified Code(s)
--- NOTE | 2023-09-16 08:29 | PCPTNOTE ---
The patient treatment was not able to be completed at this time due to patient out of room for testing. Will plan to continue treatment per plan of care.
[2023-09-16] MEDS: MORPHINE SULFATE (*CRX) 2 MG/ML INJ IV PUSH (08:55)
[2023-09-16] MEDS: polyethylene glycoL 3350 17 GM POWD.PACK PO (09:33)
[2023-09-16] MEDS: PARoxetine 20 MG TABLET 40 MG PO (09:34)
[2023-09-16] MEDS: ASPIRIN 325 MG ENTERIC TABLET PO (09:34)
[2023-09-16] MEDS: PANTOPRAZOLE 40 MG TABLET PO (09:35)
[2023-09-16] MEDS: OMEGA 3 POLYUNSAT FATTY ACIDS 1 GM CAP PO (09:36)
[2023-09-16] MEDS: FUROSEMIDE INJ 40 MG/4 ML VIAL 20 MG IV PUSH (09:36)
[2023-09-16] MEDS: carvediloL 25 MG TABLET PO ×2 (09:36→17:38)
[2023-09-16] MEDS: GABAPENTIN 100 MG CAPSULE PO ×3 (09:36→17:38)
[2023-09-16] MEDS: ramipriL 5 MG CAPSULE 10 MG PO (09:38)
[2023-09-16] MEDS: HEPARIN SODIUM 5,000 UNITS/ML VIAL 5000 UNITS SUB-Q (09:40)
[2023-09-16 09:45] LABS: Glucose Point of Care 61 mg/dl (65-105)
--- NOTE | 2023-09-16 09:58 | PCOTNOTE ---
Attempted to see pt for OT treatment. Pt was easily aroused with therapist arrived for session, with RN present in room. Pt declined to participate at this time due to increase nausea. RN offered to provide anti nausea when available. Will attempt at a later time.
[2023-09-16 10:09] LABS: Glucose Point of Care 74 mg/dl (65-105)
--- NOTE | 2023-09-16 11:19 | PCOTNOTE ---
Patient refused treatment this session. Attempted to see patient after initial refusal patient stated he was just to anxious about the procedure tomorrow.
--- NOTE | 2023-09-16 11:38 | PCPTNOTE ---
Patient refused PT stating he is tired and depressed. Patient encouraged to participate but continued to refuse. PT will continue to follow per plan of care.
[2023-09-16 11:48] LABS: Glucose Point of Care 110 mg/dl (65-105)
--- NOTE | 2023-09-16 13:50 | PM.CNGS ---
Assessment and Plan Assessment and plan (1) Cholecystitis: Code(s): K81.9 - Cholecystitis, unspecified Status: Acute Assessment and Plan: Given extensive medical issues he is a poor surgical candidate, we will set up for percutaneous cholecystostomy tube, continue antibiotics (2) CHF (congestive heart failure): Code(s): I50.9 - Heart failure, unspecified Status: Acute Assessment and Plan: continue management per Medical Team, continue diuresis (3) Pleural effusion: Code(s): J90 - Pleural effusion, not elsewhere classified Status: Acute Assessment and Plan: set up for thoracentesis tomorrow History of Present Illness Consult details Consult date: 09/16/23 Reason for consult: abdominal pain Requesting physician: Monique Martin PA-C Narrative: The patient is a 62-year-old male with multiple medical issues including CAD, diabetes, hypertension, CHF, h/o CVA presenting with worsening shortness of breath, upper abdominal pain. Workup, including imaging, was significant for CHF exacerbation with pleural effusion and likely acute cholecystitis. The patient has since been admitted to the medical service and is now on supplemental oxygen. The patient is scheduled to get thoracentesis tomorrow. The patient had right upper quadrant ultrasound and HIDA scan both consistent with acute cholecystitis. The patient reports continued upper abdominal pain, right greater than left, nausea, and bloating. Review of Systems Review of Systems: ROS unobtainable: Yes unobtainable due to medical condition and unobtainable due to mental status PMFSH Past Medical History Medical History Anemia Bipolar disease, chronic Cerebrovascular accident Multiple strokes with residual left-sided weakness. Chronic kidney disease, stage 3 Coronary artery disease Diabetic peripheral neuropathy 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) Dysphagia as late effect of cerebrovascular accident (CVA) GERD (gastroesophageal reflux disease) Heart failure with preserved ejection fraction Hypertension Insulin dependent type 2 diabetes mellitus Mitral valve disease Myocardial infarction Paroxysmal atrial fibrillation Peripheral artery disease Physical deconditioning Vascular dementia Surgical History Surgical History History of cardiac catheterization History of coronary artery bypass graft x 3 (11/2001) History of coronary artery stent placement (2017) History of vascular surgery (2012) Bilateral lower extremity stents two stents. Family History Family History Mother Acute myocardial infarction Cerebrovascular accident Diabetes mellitus Hypertension Sibling Acute myocardial infarction AIDS Sibling AIDS Social History Social History Social History: Surrogate medical decision maker: Maite Rendon, spouse. Code status: Smoking status: Never smoker Second hand tobacco smoke exposure: No Alcohol intake: former Substance use: never Substance use type: does not use Do You Feel Safe in your Home?: Yes Lack of Transportation: YES Lack of Food: Never True Current Housing: I Have Housing Concerned About Future Housing: No Difficulty Paying Gas/Electric Bills: No Difficulty Paying for Meds: YES Currently Unemployed: No Education: High School Diploma/GED Difficulty w/ Childcare or Family Care: No Additional living arrangements comments: Lives with spouse. Spiritual care concerns: No Agree to blood products: Yes Meds Home Medications and Allergies Home Medications Medication Instructions Recorded Confirmed Type omeprazole 20 mg capsule,delayed 20 mg PO DAILY 03/04/19 09/11/23 History release paroxetine
[2023-09-16 16:36] LABS: Glucose Point of Care 75 mg/dl (65-105)
[2023-09-16] MEDS: MELATONIN 5 MG TABLET 10 MG PO (20:39)
[2023-09-16] MEDS: SENNA/DOCUSATE SODIUM TABLET 1 TAB PO (20:39)
[2023-09-16] MEDS: guaiFENesin 12 HR 600 MG TABCR 1200 MG PO (20:39)
[2023-09-16] MEDS: ATORVASTATIN 40 MG TABLET 80 MG PO (20:39)
[2023-09-16] MEDS: INSULIN GLARGINE (*BKC) 100 UNITS/ML 20 UNITS SUB-Q (20:40)
[2023-09-16 20:53] LABS: Glucose Point of Care 147 mg/dl (65-105)
[2023-09-17] VITALS (11 sets, daily range): BP systolic 147–164; BP diastolic 61–62; PULSE 54–78; RESP 20; TEMP 36.7–37; O2SAT 91–95
[2023-09-17] MEDS: CEFEPIME 2 GM/NS 50 ML 2 GM/50 ML BAG IVPB ×2 (03:50→15:19)
[2023-09-17] MEDS: metroNIDAZOLE 500 MG TABLET PO ×3 (05:46→21:06)
[2023-09-17 06:35] LABS: Basophils Absolute Auto 0.1 K/mm3 (0.0-0.1); Basophils Percent Auto 0.8 % (0.2-1.2); Eosinophils Absolute Auto 0.6 K/mm3 (0-0.3); Eosinophils Percent Auto 4.9 % (0-4.4); Hematocrit 28.9 % (42.0-52.0); Hemoglobin 8.8 g/dL (14.0-18.0); Immature Granulocyte Absolute 0.49 K/mm3 (0.00-0.031); Lymphocytes Absolute Auto 1.61 K/mm3 (0.9-3.2); Lymphocytes Percent Auto 13.1 % (18.3-44.2); Mean Corpuscular HGB Conc 30.4 g/dl (32-36); Mean Corpuscular Hemoglobin 26.7 pg (26-34); Mean Corpuscular Volume 87.6 fl (80-100); Mean Platelet Volume 10.9 fl (7.4-10.4); Monocytes Absolute Auto 1.1 K/mm3 (0.1-0.6); Monocytes Percent Auto 8.9 % (2.6-8.5); Neutrophils Absolute Auto 8.4 K/mm3 (1.3-6.7); Neutrophils Percent Auto 68.3 % (45.5-73.1); Platelet Count Result 257 k/mm3 (150-375); Red Cell Distribution Width 14.7 % (11.5-14.5); White Blood Count 12.3 K/mm3 (4.5-10.0)
[2023-09-17 06:43] LABS: Alanine Aminotransferase 8 U/L (6-50); Albumin Level 2.5 g/dL (3.5-5.1); Alkaline Phosphatase 84 U/L (38-126); Anion Gap 3 mmol/L (4-12); Aspartate Amino Transferase 23 U/L (17-59); Bilirubin,Total 0.5 mg/dL (0.2-1.3); Blood Urea Nitrogen 29 mg/dL (9-20); Carbon Dioxide 26 mmol/L (22-30); Chloride 106 mmol/L (98-107); Estimated CRCL calculation 35 ml/min; Estimated Glomerular Filt Rate 32; Glucose 90 mg/dL (65-110); Potassium 3.9 mmol/L (3.4-5.0); Sodium 135 mmol/L (137-145)
--- NOTE | 2023-09-17 07:21 | PM.IMPN ---
Progress Note: A&P Assessment and Plan (1) Acute respiratory failure with hypoxia: Code(s): J96.01 - Acute respiratory failure with hypoxia Status: Acute Assessment and Plan: SpO2 89% on admission with new oxygen requirement of 2L NC. - Wean oxygen supplementation as tolerated to maintain SpO2 >90% Patient remains on 1L NC. (2) Acute exacerbation of CHF (congestive heart failure): Code(s): I50.9 - Heart failure, unspecified Status: Acute Assessment and Plan: CHF likely due to hospital acquired pneumonia complicated by large pleural effusion. - Symptoms: Shortness of breath with new O2 requirement - Current medications: ramipril 10 mg daily - Lasix 20 mg IV daily - BNP: 70439 - EKG, initial: sinus rhythm, RBBB. similar to previous. - Chest XR 09/10: Small left pleural effusion with associated atelectasis and/or pneumonia in the left lower lung zone. - CT chest moderate to large left pleural effusion with near complete left lower lobe atelectasis - Echo 08/01/23: LVEF 60-65% and grade I diastolic dysfunction - Monitor vital signs, I&Os, BUN/creatinine, daily weights, neuro status and patient is a fall risk - Monitor serum electrolytes, Keep serum Potassium>4 and serum Magnesium>2 and CBC (3) Hospital-acquired pneumonia: Code(s): J18.9 - Pneumonia, unspecified organism; Y95 - Nosocomial condition Status: Acute Assessment and Plan: - Chest XR 09/10: Small left pleural effusion with associated atelectasis and/or pneumonia in the left lower lung zone. - CT chest moderate to large left pleural effusion with near complete left lower lobe atelectasis - Risk Factors: recent hospitalization - Complicating Factors: large pleural effusion and prior pneumococcal infection - started on HAP tx: cefe, flagyl - Viral PCR: Flu/COVID/RSV negative - MRSA negative, vanc discontinued 09/12 - Blood cultures collected on 09/11: NGTD - Send sputum cultures - 1L NC supplemental O2 requirement. Keep SpO2 greater than 90% - Monitor vital signs, I&Os, neuro status and patient is a fall risk - Follow WBC, serum electrolytes, temperature curves and cultures - Gentle IV fluid resuscitation (4) Pleural effusion: Code(s): J90 - Pleural effusion, not elsewhere classified Status: Acute Assessment and Plan: - See pneumonia #3 - CT chest moderate to large left pleural effusion with near complete left lower lobe atelectasis - Thoracentesis performed 09/16, yeilding 200 ml of dark red fluid. Diagnostics tests ordered. - Holding Plavix, will likely restart tomorrow (5) Cholecystitis: Code(s): K81.9 - Cholecystitis, unspecified Status: Acute Assessment and Plan: Patient endorses RUQ pain for past week. LFTs and tot bili WNL. - CT chest: Images through the upper abdomen reveal distended gallbladder. - RUQ US: Dilated gallbladder with wall thickening and sludge and tiny gallstones, the latter evident on prior CT which is suspicious for acute cholecystitis however the sonographic Perry sign was reported as negative. - HIDA 09/15: acute cholecystitis - Surgery consulted Patient is a poor surgical candidate at this time. Will set up a percutaneous cholecystotomy tube and continue antibiotics - Cholecystostomy tube placed 09/15 - Antibiotics: Cefe and flagyl (6) Chest pain: Qualifiers: Chest pain type: unspecified Qualified Code(s): R07.9 - Chest pain, unspecified Code(s): R07.9 - Chest pain, unspecified Status: Acute Assessment and Plan: Chest pain on admission likely related to patients heart failure exacerbation. This has since resolved. - EKG, initial: sinus rhythm, RBBB. similar to previous. - CXR: Small left pleural effusion with associated atelectasis and/or pneumonia in the left lower lung zone. - Troponin: 0.013 -> 0.021 (remains within normal range) - nitro transdermal applied - telemetry monitoring (7) Constipation: Qual
[2023-09-17 07:49] LABS: Glucose Point of Care 88 mg/dl (65-105)
[2023-09-17 08:20] LABS: INR 1.3
[2023-09-17 08:21] LABS: Partial Thromboplastin Time 37.6 Seconds (22.3-36.8)
[2023-09-17] MEDS: OMEGA 3 POLYUNSAT FATTY ACIDS 1 GM CAP PO (08:23)
[2023-09-17] MEDS: PARoxetine 20 MG TABLET 40 MG PO (08:23)
[2023-09-17] MEDS: PANTOPRAZOLE 40 MG TABLET PO (08:24)
[2023-09-17] MEDS: GABAPENTIN 100 MG CAPSULE PO ×3 (08:24→17:34)
[2023-09-17] MEDS: carvediloL 25 MG TABLET PO ×2 (08:24→17:34)
[2023-09-17] MEDS: guaiFENesin 12 HR 600 MG TABCR 1200 MG PO ×2 (08:24→21:06)
[2023-09-17] MEDS: FUROSEMIDE INJ 40 MG/4 ML VIAL 20 MG IV PUSH (08:25)
[2023-09-17] MEDS: ramipriL 5 MG CAPSULE 10 MG PO (08:26)
[2023-09-17 11:53] LABS: Glucose Point of Care 84 mg/dl (65-105)
--- NOTE | 2023-09-17 12:40 | PM.PNGS ---
Progress Note: A&P Assessment and Plan (1) Cholecystitis: Code(s): K81.9 - Cholecystitis, unspecified Status: Acute Assessment and Plan: S/p cholecystostomy tube, continue to monitor. Okay to advance his diet after thoracentesis today. Continue IV antibiotics. WBC trending down. (2) CHF (congestive heart failure): Code(s): I50.9 - Heart failure, unspecified Status: Acute Assessment and Plan: Continue management per primary service (3) Pleural effusion: Code(s): J90 - Pleural effusion, not elsewhere classified Status: Acute Assessment and Plan: Scheduled for thoracentesis today Plan I have discussed the patient's case and plan of care with Dr. Deluna. Subjective Subjective Date/Time Seen: 09/17/23 12:40 Post Op day: 1 (s/p cholecystostomy tube placement) Patient reports: no new complaints, feels better, pain is less and afebrile Interval history: Patient scheduled for a thoracentesis today and is NPO this morning. He did well after cholecystostomy tube placement and was able to tolerate a diabetic diet. He denies any abdominal pain or nausea today. Exam Const: General: comfortable and no acute distress GI: Inspection: non-distended and other (cholecystostomy tube in RUQ with cloudy bilious drainage) GI Palp: Yes Soft to palpation, Yes Tenderness to palpation present (GI) (minimal TTP near cholecystostomy tube), No Guarding due to palpation present (GI) and No Rebound tenderness present Auscultation: normal bowel sounds Objective Data Vital Signs Vital Signs: Vital Signs - 24 hr 09/16/23 13:56 09/16/23 16:00 09/16/23 17:38 Temperature 96.8 F L Pulse Rate 60 63 61 Respiratory Rate 16 Blood Pressure 169/61 H Pulse Oximetry 96 Oxygen Delivery Oxygen Flow Rate Fraction of Inspired Oxygen 09/16/23 20:00 09/16/23 20:00 09/17/23 00:00 Temperature Pulse Rate 62 57 L Respiratory Rate Blood Pressure Pulse Oximetry Oxygen Delivery Room Air Oxygen Flow Rate Fraction of Inspired Oxygen 09/16/23 22:00 09/17/23 04:00 09/17/23 06:00 Temperature 99.0 F 98.1 F Pulse Rate 60 56 L 60 Respiratory Rate 18 20 Blood Pressure 141/50 H 147/61 H Pulse Oximetry 94 93 Oxygen Delivery Oxygen Flow Rate Fraction of Inspired Oxygen 09/17/23 08:24 09/17/23 08:37 09/17/23 08:00 Temperature Pulse Rate 56 L 54 L Respiratory Rate Blood Pressure Pulse Oximetry 93 Oxygen Delivery Nasal Cannula Oxygen Flow Rate 1 Fraction of Inspired Oxygen 09/17/23 08:00 09/17/23 12:00 Temperature Pulse Rate 56 L 57 L Respiratory Rate Blood Pressure Pulse Oximetry 91 Oxygen Delivery Nasal Cannula Oxygen Flow Rate 1 Fraction of Inspired Oxygen Intake/Output Intake/Output: Intake & Output 09/14/23 09/15/23 09/16/23 09/17/23 23:59 23:59 23:59 23:59 Intake Total 340 1480 490 0 Output Total 650 700 650 50 Balance -310 780 -160 -50 Meds/Results Medications: Active Medications Generic Name Dose Route Start Last Admin Trade Name Freq PRN Reason Stop Dose Admin Acetaminophen 650 mg 09/12/23 22:38 09/15/23 13:13 Acetaminophen 325 Mg Tablet PO 650 mg Q6H PRN Administration Mild Pain (1-3) or Fever Albuterol 2 puff 09/11/23 13:35 Albuterol Sulfate (*Sp) Aerosol 1 Puff INHALATION QID PRN shortness of breath or wheezing Aspirin 325 mg 09/12/23 09:00 09/17/23 07:51 Aspirin 325 Mg Enteric Tablet PO Not Given QAM [facility] Atorvastatin Calcium 80 mg 09/11/23 21:00 09/16/23 20:39 Atorvastatin 40 Mg Tablet PO 80 mg HS GEOFFREY Administration Carvedilol 25 mg 09/13/23 08:00 09/17/23 08:24 Carvedilol 25 Mg Tablet PO 25 mg BIDWM GEOFFREY Administration Clopidogrel Bisulfate 75 mg 09/12/23 09:00 09/12/23 08:01 Clopidogrel Bisulfate 75 Mg Tablet PO 75 mg DAILY GEOFFREY Administration Dextrose 12.5 gm 09/11/23 13:44
[2023-09-17 14:06] LABS: pH Pleural Fluid 7.327 (7.210-7.500)
[2023-09-17 15:21] LABS: Pleural fluid source Pleural fluid
[2023-09-17 15:22] LABS: Appearance Pleural Fluid Cloudy (Clear); Color Pleural Fluid Red (Colorless)
[2023-09-17 15:25] LABS: Lymphocytes Pleural Fluid 45 %; Macrophages Pleural Fluid 2 %; Monocytes Pleural Fluid 8 %; Neutrophils Pleural Fluid 45 % (0-25); Nucleated Cell Pleural Fluid 1187 /uL (0-1000); RBC Pleural Fluid 145000 /uL (0-10000)
[2023-09-17 16:36] LABS: Glucose Point of Care 99 mg/dl (65-105)
[2023-09-17] MEDS: MELATONIN 5 MG TABLET 10 MG PO (21:06)
[2023-09-17] MEDS: SENNA/DOCUSATE SODIUM TABLET 1 TAB PO (21:07)
[2023-09-17] MEDS: ATORVASTATIN 40 MG TABLET 80 MG PO (21:07)
[2023-09-17] MEDS: INSULIN GLARGINE (*BKC) 100 UNITS/ML 20 UNITS SUB-Q (21:07)
[2023-09-17 22:57] LABS: Glucose Point of Care 183 mg/dl (65-105)
[2023-09-18] VITALS (12 sets, daily range): BP systolic 121–142; BP diastolic 50–68; PULSE 56–83; RESP 18–22; TEMP 36–36.4; O2SAT 91–95
[2023-09-18] MEDS: CEFEPIME 2 GM/NS 50 ML 2 GM/50 ML BAG IVPB ×2 (05:15→14:46)
[2023-09-18] MEDS: metroNIDAZOLE 500 MG TABLET PO ×3 (05:16→21:35)
[2023-09-18 06:25] LABS: Basophils Absolute Auto 0.1 K/mm3 (0.0-0.1); Basophils Percent Auto 0.4 % (0.2-1.2); Eosinophils Absolute Auto 0.6 K/mm3 (0-0.3); Eosinophils Percent Auto 4.7 % (0-4.4); Hematocrit 30.2 % (42.0-52.0); Hemoglobin 9.3 g/dL (14.0-18.0); Immature Granulocyte Absolute 0.91 K/mm3 (0.00-0.031); Immature Granulocyte Percent A 7.6 % (0-0.5); Lymphocytes Absolute Auto 1.65 K/mm3 (0.9-3.2); Lymphocytes Percent Auto 13.7 % (18.3-44.2); Mean Corpuscular HGB Conc 30.8 g/dl (32-36); Mean Corpuscular Hemoglobin 27.1 pg (26-34); Mean Platelet Volume 10.8 fl (7.4-10.4); Monocytes Absolute Auto 1.1 K/mm3 (0.1-0.6); Monocytes Percent Auto 9.1 % (2.6-8.5); Neutrophils Absolute Auto 7.8 K/mm3 (1.3-6.7); Neutrophils Percent Auto 64.5 % (45.5-73.1); Platelet Count Result 276 k/mm3 (150-375); Red Blood Count 3.43 M/mm3 (4.6-6.20)
[2023-09-18 06:36] LABS: Alanine Aminotransferase 8 U/L (6-50); Albumin Level 2.6 g/dL (3.5-5.1); Alkaline Phosphatase 83 U/L (38-126); Anion Gap 4 mmol/L (4-12); Aspartate Amino Transferase 21 U/L (17-59); Bilirubin,Total 0.5 mg/dL (0.2-1.3); Blood Urea Nitrogen 30 mg/dL (9-20); Calcium 8.1 mg/dL (8.4-10.2); Carbon Dioxide 27 mmol/L (22-30); Chloride 106 mmol/L (98-107); Estimated CRCL calculation 36 ml/min; Estimated Glomerular Filt Rate 34; Glucose 143 mg/dL (65-110); Potassium 4.2 mmol/L (3.4-5.0); Sodium 137 mmol/L (137-145)
[2023-09-18 07:31] LABS: Glucose Point of Care 135 mg/dl (65-105)
[2023-09-18] MEDS: ASPIRIN 325 MG ENTERIC TABLET PO (08:07)
[2023-09-18] MEDS: carvediloL 25 MG TABLET PO ×2 (08:07→16:40)
[2023-09-18] MEDS: guaiFENesin 12 HR 600 MG TABCR 1200 MG PO ×2 (08:07→21:35)
[2023-09-18] MEDS: PANTOPRAZOLE 40 MG TABLET PO (08:07)
[2023-09-18] MEDS: ramipriL 5 MG CAPSULE 10 MG PO (08:07)
[2023-09-18] MEDS: GABAPENTIN 100 MG CAPSULE PO ×3 (08:07→16:40)
[2023-09-18] MEDS: PARoxetine 20 MG TABLET 40 MG PO (08:08)
[2023-09-18] MEDS: FUROSEMIDE INJ 40 MG/4 ML VIAL 20 MG IV PUSH (08:08)
[2023-09-18] MEDS: OMEGA 3 POLYUNSAT FATTY ACIDS 1 GM CAP PO (08:08)
[2023-09-18] MEDS: ONDANSETRON INJ 4 MG/2 ML VIAL IV PUSH ×2 (09:17→16:45)
--- NOTE | 2023-09-18 10:30 | PCNWS ---
Weekly nutritional screen. Patient is tolerating current diet with adequate intake, 75-100%. No weight loss reported. No nutritional needs at this time.
--- NOTE | 2023-09-18 10:43 | PM.PNGS ---
Progress Note: A&P Assessment and Plan (1) Cholecystitis: Code(s): K81.9 - Cholecystitis, unspecified Status: Acute Assessment and Plan: exam benign, cont drain and abx, jessica diabetic diet Subjective Subjective Date/Time Seen: 09/18/23 10:43 Interval history: feels better, breathing improved after thoracentesis, no abd pain, jessica diet Review of Systems Review of Systems: All systems reviewed & are unremarkable except as noted in HPI and below Exam Const: General: cooperative, comfortable, no acute distress and ill appearing Resp: Auscultation: diminished lung sounds Cardio: Rate: regular rate Rhythm: regular rhythm GI: Inspection: normal to inspection and distended GI Palp: Yes abdominal tenderness, Yes Soft to palpation and Yes Tenderness to palpation present (GI) Other: crystal tube - bilious drainage Objective Data Vital Signs Vital Signs: Vital Signs - 24 hr 09/17/23 12:00 09/17/23 16:00 09/17/23 17:34 Temperature Pulse Rate 57 L 60 64 Respiratory Rate Blood Pressure Pulse Oximetry Oxygen Delivery Oxygen Flow Rate 09/17/23 22:00 09/17/23 20:00 09/17/23 20:00 Temperature 37.0 C Pulse Rate 60 78 Respiratory Rate 20 Blood Pressure 164/62 H Pulse Oximetry 95 95 Oxygen Delivery Nasal Cannula Oxygen Flow Rate 1 09/18/23 00:00 09/18/23 04:00 09/18/23 06:00 Temperature 36.4 C Pulse Rate 64 56 L 62 Respiratory Rate 18 Blood Pressure 142/68 H Pulse Oximetry 92 Oxygen Delivery Oxygen Flow Rate 09/18/23 08:07 09/18/23 08:00 09/18/23 08:00 Temperature Pulse Rate 59 L 66 59 L Respiratory Rate Blood Pressure Pulse Oximetry 92 Oxygen Delivery Nasal Cannula Oxygen Flow Rate 1 Intake/Output Intake/Output: Intake & Output 09/15/23 09/16/23 09/17/23 09/18/23 23:59 23:59 23:59 23:59 Intake Total 1480 490 460 340 Output Total 700 650 260 510 Balance 780 -160 200 -170 Meds/Results Medications: Active Medications Generic Name Dose Route Start Last Admin Trade Name Freq PRN Reason Stop Dose Admin Acetaminophen 650 mg 09/12/23 22:38 09/15/23 13:13 Acetaminophen 325 Mg Tablet PO 650 mg Q6H PRN Administration Mild Pain (1-3) or Fever Albuterol 2 puff 09/11/23 13:35 Albuterol Sulfate (*Sp) Aerosol 1 Puff INHALATION QID PRN shortness of breath or wheezing Aspirin 325 mg 09/12/23 09:00 09/18/23 08:07 Aspirin 325 Mg Enteric Tablet PO 325 mg QAM GEOFFREY Administration Atorvastatin Calcium 80 mg 09/11/23 21:00 09/17/23 21:07 Atorvastatin 40 Mg Tablet PO 80 mg HS GEOFFREY Administration Carvedilol 25 mg 09/13/23 08:00 09/18/23 08:07 Carvedilol 25 Mg Tablet PO 25 mg BIDWM GEOFFREY Administration Clopidogrel Bisulfate 75 mg 09/12/23 09:00 09/12/23 08:01 Clopidogrel Bisulfate 75 Mg Tablet PO 75 mg DAILY GEOFFREY Administration Dextrose 12.5 gm 09/11/23 13:44 Dextrose 50% 25 Gm/50 Ml Syringe IV PUSH PRN PRN Hypoglycemia Protocol Fish Oil 1 gm 09/12/23 09:00 09/18/23 08:08 [place] 3 Polyunsat Fatty Acids 1 Gm Cap PO 1 gm QAM GEOFFREY Administration Furosemide 20 mg 09/12/23 09:00 09/18/23 08:08 Furosemide Inj 40 Mg/4 Ml Vial IV PUSH 20 mg DAILY GEOFFREY Administration Gabapentin 100 mg 09/11/23 14:00 09/18/23 08:07 Gabapentin 100 Mg Capsule PO 100 mg TID GEOFFREY Administration Glipizide 10 mg 09/11/23 16:30 09/15/23 06:06 Glipizide 5 Mg Tablet PO 10 mg BIDAC GEOFFREY Administration Glucagon 1 mg 09/11/23 13:44 Glucagon For Inj 1 Mg Vial IM PRN PRN Hypoglycemia Protocol Glucose 15 gm 09/11/23 13:44 09/15/23 08:06 Glucose Oral Gel 15 Gm Of Glucse In 37.5 Gm Tube PO 15 gm PRN PRN Administration Hypoglycemia Protocol Guaifenesin 1,200 mg 09/11/23 21:00 09/18/23 08:07 Guaifenesin 12 Hr 600 Mg Tabcr PO 1,200 mg Q12HR GEOFFREY Administration Heparin
[2023-09-18 11:23] LABS: Glucose Point of Care 200 mg/dl (65-105)
--- NOTE | 2023-09-18 11:47 | ECG_ITS ---
Test Date: 2023-09-18 13:51:24 Measurements Intervals [place] Rate: 73 P: 87 OR: 178 QRS: -14 QRSD: 158 T: 2 QT: 444 QTc: 490 Interpretive Statements SINUS RHYTHM RIGHT BUNDLE BRANCH BLOCK BASELINE ARTIFACT- I, II, AVR ABNORMAL ECG Compared to ECG 09/11/2023 07:46:09 No significant changes Electronically Signed On 09-18-2023 15:00:45 CDT by Silas Souza D.O.
--- NOTE | 2023-09-18 12:24 | P.PNIM_ITS ---
Progress Note: A&P Assessment and Plan (1) Acute respiratory failure with hypoxia: Code(s): J96.01 - Acute respiratory failure with hypoxia Status: Acute (2) Acute exacerbation of CHF (congestive heart failure): Code(s): I50.9 - Heart failure, unspecified Status: Acute (3) Hospital-acquired pneumonia: Code(s): J18.9 - Pneumonia, unspecified organism; Y95 - Nosocomial condition Status: Acute (4) Pleural effusion: Code(s): J90 - Pleural effusion, not elsewhere classified Status: Acute (5) Cholecystitis: Code(s): K81.9 - Cholecystitis, unspecified Status: Acute (6) Chest pain: Qualifiers: Chest pain type: unspecified Qualified Code(s): R07.9 - Chest pain, unspecified Code(s): R07.9 - Chest pain, unspecified Status: Acute (7) Constipation: Qualifiers: Constipation type: unspecified constipation type Qualified Code(s): K59.00 - Constipation, unspecified Code(s): K59.00 - Constipation, unspecified Status: Acute (8) Chronic kidney disease, stage 3: Qualifiers: Chronic kidney disease stage 3 subtype: stage 3b (GFR 30-44) Qualified Code(s): N18.32 - Chronic kidney disease, stage 3b Code(s): N18.30 - Chronic kidney disease, stage 3 unspecified Status: Chronic (9) Insulin dependent type 2 diabetes mellitus: Code(s): E11.9 - Type 2 diabetes mellitus without complications; 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 * HIDA 09/15: acute cholecystitis * Surgery consulted * Patient is a poor surgical candidate at this time. Will set up a percutaneous cholecystotomy tube and continue antibiotics * Cholecystostomy tube placed 09/15 * Antibiotics: Cefe and flagyl * Advanced diet Acute respiratory failure with hypoxia-Resolved * Multifocal CHF exacerbation pneumonia * 89% POA * weaned supplemental oxygen Acute on chronic diastolic heart failure * BNP 02106 * cardiology consulted * IV Lasix b.i.d. * monitor renal function during diuresis * previous echocardiogram Echo 08/01/23: LVEF 60-65% and grade I diastolic dysfunction * echocardiogram pending * EKG: SR BBB * chest x-ray: mall left pleural effusion with associated atelectasis and/or pneumonia in the left lower lung zone. CT chest moderate to large left pleural effusion with near complete left lower lobe atelectasis * Daily weight. * Monitor serum electrolytes, Keep serum Potassium>4 and serum Magnesium>2 and CBC Pneumonia HAP * Chest XR 09/10: Small left pleural effusion with associated atelectasis and/or pneumonia in the left lower lung zone. * CT chest moderate to large left pleural effusion with near complete left lower lobe atelectasis * Risk Factors: recent hospitalization * Complicating Factors: large pleural effusion and prior pneumococcal infection * started on HAP tx: cefe, flagyl * Viral PCR: Flu/COVID/RSV negative * MRSA negative, vanc discontinued 09/12 * Blood cultures collected on 09/11: NGTD * Send sputum cultures * 1L NC supplement
--- NOTE | 2023-09-18 12:24 | PM.IMPN ---
Progress Note: A&P Assessment and Plan (1) Acute respiratory failure with hypoxia: Code(s): J96.01 - Acute respiratory failure with hypoxia Status: Acute (2) Acute exacerbation of CHF (congestive heart failure): Code(s): I50.9 - Heart failure, unspecified Status: Acute (3) Hospital-acquired pneumonia: Code(s): J18.9 - Pneumonia, unspecified organism; Y95 - Nosocomial condition Status: Acute (4) Pleural effusion: Code(s): J90 - Pleural effusion, not elsewhere classified Status: Acute (5) Cholecystitis: Code(s): K81.9 - Cholecystitis, unspecified Status: Acute (6) Chest pain: Qualifiers: Chest pain type: unspecified Qualified Code(s): R07.9 - Chest pain, unspecified Code(s): R07.9 - Chest pain, unspecified Status: Acute (7) Constipation: Qualifiers: Constipation type: unspecified constipation type Qualified Code(s): K59.00 - Constipation, unspecified Code(s): K59.00 - Constipation, unspecified Status: Acute (8) Chronic kidney disease, stage 3: Qualifiers: Chronic kidney disease stage 3 subtype: stage 3b (GFR 30-44) Qualified Code(s): N18.32 - Chronic kidney disease, stage 3b Code(s): N18.30 - Chronic kidney disease, stage 3 unspecified Status: Chronic (9) Insulin dependent type 2 diabetes mellitus: Code(s): E11.9 - Type 2 diabetes mellitus without complications; 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 HIDA 09/15: acute cholecystitis Surgery consulted Patient is a poor surgical candidate at this time. Will set up a percutaneous cholecystotomy tube and continue antibiotics Cholecystostomy tube placed 09/15 Antibiotics: Cefe and flagyl Advanced diet Acute respiratory failure with hypoxia-Resolved Multifocal CHF exacerbation pneumonia 89% POA weaned supplemental oxygen Acute on chronic diastolic heart failure BNP [id number] cardiology consulted IV Lasix b.i.d. monitor renal function during diuresis previous echocardiogram Echo 08/01/23: LVEF 60-65% and grade I diastolic dysfunction echocardiogram pending EKG: SR BBB chest x-ray: mall left pleural effusion with associated atelectasis and/or pneumonia in the left lower lung zone. CT chest moderate to large left pleural effusion with near complete left lower lobe atelectasis Daily weight. Monitor serum electrolytes, Keep serum Potassium>4 and serum Magnesium>2 and CBC Pneumonia HAP Chest XR 09/10: Small left pleural effusion with associated atelectasis and/or pneumonia in the left lower lung zone. CT chest moderate to large left pleural effusion with near complete left lower lobe atelectasis Risk Factors: recent hospitalization Complicating Factors: large pleural effusion and prior pneumococcal infection started on HAP tx: cefe, flagyl Viral PCR: Flu/COVID/RSV negative MRSA negative, vanc discontinued 09/12 Blood cultures collected on 09/11: NGTD Send sputum cultures 1L NC supplemental O2 requirement. Keep SpO2 greater than 90% weaned on RA Monitor vital signs, I&Os, neuro status and patient is a fall risk Follow WBC, serum electrolytes, temperature curves and cultures Pleural effusion CT chest moderate to large left pleural effusion with near complete left lower lobe atelectasis Thoracentesis performed 09/16, yielding 200 ml of dark red fluid. Diagnostics tests ordered. Holding Plavix, will likely restart tomorrow Acute o
[2023-09-18 16:32] LABS: Glucose Point of Care 246 mg/dl (65-105)
[2023-09-18] MEDS: INSULIN ASPART (*BKC) 100 UNITS/ML SUB-Q (16:38)
[2023-09-18] MEDS: glipiZIDE 5 MG TABLET 10 MG PO (16:40)
[2023-09-18 20:43] LABS: Glucose Point of Care 276 mg/dl (65-105)
[2023-09-18] MEDS: HEPARIN SODIUM 5,000 UNITS/ML VIAL 5000 UNITS SUB-Q (21:35)
[2023-09-18] MEDS: ATORVASTATIN 40 MG TABLET 80 MG PO (21:35)
[2023-09-18] MEDS: SENNA/DOCUSATE SODIUM TABLET 1 TAB PO (21:35)
[2023-09-18] MEDS: INSULIN GLARGINE (*BKC) 100 UNITS/ML 20 UNITS SUB-Q (21:43)
[2023-09-18] MEDS: MELATONIN 5 MG TABLET 10 MG PO (21:44)
[2023-09-19] VITALS (10 sets, daily range): BP systolic 160–181; BP diastolic 58–67; PULSE 56–65; RESP 16–20; TEMP 36.1–36.7; O2SAT 93–97
[2023-09-19] MEDS: CEFEPIME 2 GM/NS 50 ML 2 GM/50 ML BAG IVPB (03:15)
[2023-09-19] MEDS: metroNIDAZOLE 500 MG TABLET PO ×3 (06:14→20:29)
[2023-09-19] MEDS: glipiZIDE 5 MG TABLET 10 MG PO ×2 (06:14→16:07)
[2023-09-19 06:30] LABS: Hematocrit 29.4 % (42.0-52.0); Hemoglobin 9.3 g/dL (14.0-18.0); Mean Corpuscular HGB Conc 31.6 g/dl (32-36); Mean Corpuscular Hemoglobin 27.1 pg (26-34); Mean Corpuscular Volume 85.7 fl (80-100); Mean Platelet Volume 10.3 fl (7.4-10.4); Platelet Count Result 267 k/mm3 (150-375); Red Blood Count 3.43 M/mm3 (4.6-6.20); Red Cell Distribution Width 14.9 % (11.5-14.5); White Blood Count 11.9 K/mm3 (4.5-10.0)
[2023-09-19 06:41] LABS: Alanine Aminotransferase 9 U/L (6-50); Albumin Level 2.6 g/dL (3.5-5.1); Alkaline Phosphatase 85 U/L (38-126); Anion Gap 2 mmol/L (4-12); Aspartate Amino Transferase 21 U/L (17-59); Bilirubin,Total 0.4 mg/dL (0.2-1.3); Blood Urea Nitrogen 29 mg/dL (9-20); Calcium 7.9 mg/dL (8.4-10.2); Carbon Dioxide 26 mmol/L (22-30); Chloride 107 mmol/L (98-107); Estimated CRCL calculation 38 ml/min; Estimated Glomerular Filt Rate 36; Glucose 163 mg/dL (65-110); Potassium 4.1 mmol/L (3.4-5.0); Sodium 135 mmol/L (137-145)
[2023-09-19 07:36] LABS: Glucose Point of Care 164 mg/dl (65-105)
[2023-09-19] MEDS: HEPARIN SODIUM 5,000 UNITS/ML VIAL 5000 UNITS SUB-Q ×2 (08:58→20:29)
[2023-09-19] MEDS: OMEGA 3 POLYUNSAT FATTY ACIDS 1 GM CAP PO (08:59)
[2023-09-19] MEDS: FUROSEMIDE INJ 40 MG/4 ML VIAL 20 MG IV PUSH (08:59)
[2023-09-19] MEDS: CLOPIDOGREL BISULFATE 75 MG TABLET PO (09:00)
[2023-09-19] MEDS: PARoxetine 20 MG TABLET 40 MG PO (09:00)
[2023-09-19] MEDS: carvediloL 25 MG TABLET PO ×2 (09:00→16:07)
[2023-09-19] MEDS: PANTOPRAZOLE 40 MG TABLET PO (09:00)
[2023-09-19] MEDS: polyethylene glycoL 3350 17 GM POWD.PACK PO (09:00)
[2023-09-19] MEDS: ASPIRIN 325 MG ENTERIC TABLET PO (09:00)
[2023-09-19] MEDS: GABAPENTIN 100 MG CAPSULE PO ×3 (09:01→16:07)
[2023-09-19] MEDS: guaiFENesin 12 HR 600 MG TABCR 1200 MG PO ×2 (09:05→20:29)
[2023-09-19] MEDS: ramipriL 5 MG CAPSULE 10 MG PO (09:05)
--- NOTE | 2023-09-19 10:41 | PM.PNGS ---
Progress Note: A&P Assessment and Plan (1) Cholecystitis: Code(s): K81.9 - Cholecystitis, unspecified Status: Acute Assessment and Plan: exam benign, cont diabetic diet, ok to switch to po abx, home c drain and abx, f/u 2 wks p dc Subjective Subjective Date/Time Seen: 09/19/23 10:41 Interval history: no acute issues, feels better, jessica diabetic diet Review of Systems Review of Systems: All systems reviewed & are unremarkable except as noted in HPI and below Exam Const: General: cooperative, comfortable, no acute distress and ill appearing Resp: Auscultation: diminished lung sounds Cardio: Rate: regular rate Rhythm: regular rhythm GI: Inspection: normal to inspection and non-distended GI Palp: Yes abdominal tenderness, Yes Soft to palpation and Yes Tenderness to palpation present (GI) Other: crystal drain c bilious drainage Objective Data Vital Signs Vital Signs: Vital Signs - 24 hr 09/18/23 12:00 09/18/23 14:00 09/18/23 16:00 Temperature 36.0 C L Pulse Rate 73 83 72 Respiratory Rate 22 H Blood Pressure 121/50 L Pulse Oximetry 91 Oxygen Delivery Oxygen Flow Rate 09/18/23 16:40 09/18/23 21:27 09/18/23 20:00 Temperature 36.1 C L Pulse Rate 71 66 Respiratory Rate 20 Blood Pressure 135/67 Pulse Oximetry 95 95 Oxygen Delivery Nasal Cannula Oxygen Flow Rate 1 09/18/23 20:00 09/19/23 00:00 09/19/23 04:00 Temperature Pulse Rate 63 56 L 57 L Respiratory Rate Blood Pressure Pulse Oximetry Oxygen Delivery Oxygen Flow Rate 09/19/23 05:24 09/18/23 21:52 09/19/23 09:00 Temperature 36.7 C Pulse Rate 57 L 65 Respiratory Rate 18 Blood Pressure 166/58 H Pulse Oximetry 96 95 Oxygen Delivery Room Air Oxygen Flow Rate Intake/Output Intake/Output: Intake & Output 09/16/23 09/17/23 09/18/23 09/19/23 23:59 23:59 23:59 23:59 Intake Total 490 460 800 440 Output Total 650 260 520 660 Balance -160 200 280 -220 Meds/Results Medications: Active Medications Generic Name Dose Route Start Last Admin Trade Name Freq PRN Reason Stop Dose Admin Acetaminophen 650 mg 09/12/23 22:38 06/30/24 13:13 Acetaminophen 325 Mg Tablet PO 650 mg Q6H PRN Administration Mild Pain (1-3) or Fever Albuterol 2 puff 09/11/23 13:35 Albuterol Sulfate (*Sp) Aerosol 1 Puff INHALATION QID PRN shortness of breath or wheezing Amoxicillin/Clavulanate Potassium 1 tablet 09/19/23 09:30 Amoxicillin/Clavulanate K 875-125 Mg Tab PO Q12HR GEOFFREY Aspirin 325 mg 09/12/23 09:00 09/19/23 09:00 Aspirin 325 Mg Enteric Tablet PO 325 mg QAM GEOFFREY Administration Atorvastatin Calcium 80 mg 09/11/23 21:00 09/18/23 21:35 Atorvastatin 40 Mg Tablet PO 80 mg HS GEOFFREY Administration Carvedilol 25 mg 09/13/23 08:00 09/19/23 09:00 Carvedilol 25 Mg Tablet PO 25 mg BIDWM GEOFFREY Administration Clopidogrel Bisulfate 75 mg 09/12/23 09:00 09/19/23 09:00 Clopidogrel Bisulfate 75 Mg Tablet PO 75 mg DAILY GEOFFREY Administration Dextrose 12.5 gm 09/11/23 13:44 Dextrose 50% 25 Gm/50 Ml Syringe IV PUSH PRN PRN Hypoglycemia Protocol Fish Oil 1 gm 09/12/23 09:00 09/19/23 08:59 [place] 3 Polyunsat Fatty Acids 1 Gm Cap PO 1 gm QAM GEOFFREY Administration Furosemide 20 mg 09/12/23 09:00 09/19/23 08:59 Furosemide Inj 40 Mg/4 Ml Vial IV PUSH 20 mg DAILY GEOFFREY Administration Gabapentin 100 mg 09/11/23 14:00 09/19/23 09:01 Gabapentin 100 Mg Capsule PO 100 mg TID GEOFFREY Administration Glipizide 10 mg 09/11/23 16:30 09/19/23 06:14 Glipizide 5 Mg Tablet PO 10 mg BIDAC GEOFFREY Administration Glucagon 1 mg 09/11/23 13:44 Glucagon For Inj 1 Mg Vial IM PRN PRN Hypoglycemia Protocol Glucose 15 gm 09/11/23 13:44 09/15/23 08:06 Glucose Oral Gel 15 Gm Of Glucse In 37.5 Gm Tube PO 15 gm PRN PRN Administration Hypoglycemia
[2023-09-19 11:20] LABS: Glucose Point of Care 316 mg/dl (65-105)
[2023-09-19] MEDS: INSULIN ASPART (*BKC) 100 UNITS/ML SUB-Q ×2 (12:48→16:22)
[2023-09-19] MEDS: AMOXICILLIN/CLAVULANATE K 875-125 MG TAB 1 TABLET PO ×2 (12:48→20:28)
--- NOTE | 2023-09-19 12:48 | P.PNIM_ITS ---
Progress Note: A&P Assessment and Plan (1) Acute respiratory failure with hypoxia: Code(s): J96.01 - Acute respiratory failure with hypoxia Status: Acute (2) Acute exacerbation of CHF (congestive heart failure): Code(s): I50.9 - Heart failure, unspecified Status: Acute (3) Hospital-acquired pneumonia: Code(s): J18.9 - Pneumonia, unspecified organism; Y95 - Nosocomial condition Status: Acute (4) Pleural effusion: Code(s): J90 - Pleural effusion, not elsewhere classified Status: Acute (5) Cholecystitis: Code(s): K81.9 - Cholecystitis, unspecified Status: Acute (6) Chest pain: Qualifiers: Chest pain type: unspecified Qualified Code(s): R07.9 - Chest pain, unspecified Code(s): R07.9 - Chest pain, unspecified Status: Acute (7) Constipation: Qualifiers: Constipation type: unspecified constipation type Qualified Code(s): K59.00 - Constipation, unspecified Code(s): K59.00 - Constipation, unspecified Status: Acute (8) Chronic kidney disease, stage 3: Qualifiers: Chronic kidney disease stage 3 subtype: stage 3b (GFR 30-44) Qualified Code(s): N18.32 - Chronic kidney disease, stage 3b Code(s): N18.30 - Chronic kidney disease, stage 3 unspecified Status: Chronic (9) Insulin dependent type 2 diabetes mellitus: Code(s): E11.9 - Type 2 diabetes mellitus without complications; 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 * HIDA 09/15: acute cholecystitis * Surgery consulted * Patient is a poor surgical candidate at this time. Will set up a percutaneous cholecystotomy tube and continue antibiotics * Cholecystostomy tube placed 09/15 * Antibiotics: Cefe and flagyl * Advanced diet 09/19/2023: * transitioned to PO Flagyl/Augmentin Acute respiratory failure with hypoxia-Resolved * Multifocal CHF exacerbation pneumonia * 89% POA * weaned supplemental oxygen Acute on chronic diastolic heart failure * BNP 43973 * cardiology consulted * IV Lasix b.i.d. * monitor renal function during diuresis * previous echocardiogram Echo 08/01/23: LVEF 60-65% and grade I diastolic dysfunction * echocardiogram pending * EKG: SR BBB * chest x-ray: mall left pleural effusion with associated atelectasis and/or pneumonia in the left lower lung zone. CT chest moderate to large left pleural effusion with near complete left lower lobe atelectasis * Daily weight. * Monitor serum electrolytes, Keep serum Potassium>4 and serum Magnesium>2 and CBC Pneumonia HAP * Chest XR 09/10: Small left pleural effusion with associated atelectasis and/or pneumonia in the left lower lung zone. * CT chest moderate to large left pleural effusion with near complete left lower lobe atelectasis * Risk Factors: recent hospitalization * Complicating Factors: large pleural effusion and prior pneumococcal infection * started on HAP tx: cefe, flagyl * Viral PCR: Flu/COVID/RSV negative * MRSA negative, vanc discontinued 09/12 * Blood cultures collected on 08/17
--- NOTE | 2023-09-19 12:48 | PM.IMPN ---
Progress Note: A&P Assessment and Plan (1) Acute respiratory failure with hypoxia: Code(s): J96.01 - Acute respiratory failure with hypoxia Status: Acute (2) Acute exacerbation of CHF (congestive heart failure): Code(s): I50.9 - Heart failure, unspecified Status: Acute (3) Hospital-acquired pneumonia: Code(s): J18.9 - Pneumonia, unspecified organism; Y95 - Nosocomial condition Status: Acute (4) Pleural effusion: Code(s): J90 - Pleural effusion, not elsewhere classified Status: Acute (5) Cholecystitis: Code(s): K81.9 - Cholecystitis, unspecified Status: Acute (6) Chest pain: Qualifiers: Chest pain type: unspecified Qualified Code(s): R07.9 - Chest pain, unspecified Code(s): R07.9 - Chest pain, unspecified Status: Acute (7) Constipation: Qualifiers: Constipation type: unspecified constipation type Qualified Code(s): K59.00 - Constipation, unspecified Code(s): K59.00 - Constipation, unspecified Status: Acute (8) Chronic kidney disease, stage 3: Qualifiers: Chronic kidney disease stage 3 subtype: stage 3b (GFR 30-44) Qualified Code(s): N18.32 - Chronic kidney disease, stage 3b Code(s): N18.30 - Chronic kidney disease, stage 3 unspecified Status: Chronic (9) Insulin dependent type 2 diabetes mellitus: Code(s): E11.9 - Type 2 diabetes mellitus without complications; 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 HIDA 09/15: acute cholecystitis Surgery consulted Patient is a poor surgical candidate at this time. Will set up a percutaneous cholecystotomy tube and continue antibiotics Cholecystostomy tube placed 09/15 Antibiotics: Cefe and flagyl Advanced diet 09/19/2023: transitioned to PO Flagyl/Augmentin Acute respiratory failure with hypoxia-Resolved Multifocal CHF exacerbation pneumonia 89% POA weaned supplemental oxygen Acute on chronic diastolic heart failure BNP [id number] cardiology consulted IV Lasix b.i.d. monitor renal function during diuresis previous echocardiogram Echo 08/01/23: LVEF 60-65% and grade I diastolic dysfunction echocardiogram pending EKG: SR BBB chest x-ray: mall left pleural effusion with associated atelectasis and/or pneumonia in the left lower lung zone. CT chest moderate to large left pleural effusion with near complete left lower lobe atelectasis Daily weight. Monitor serum electrolytes, Keep serum Potassium>4 and serum Magnesium>2 and CBC Pneumonia HAP Chest XR 09/10: Small left pleural effusion with associated atelectasis and/or pneumonia in the left lower lung zone. CT chest moderate to large left pleural effusion with near complete left lower lobe atelectasis Risk Factors: recent hospitalization Complicating Factors: large pleural effusion and prior pneumococcal infection started on HAP tx: cefe, flagyl Viral PCR: Flu/COVID/RSV negative MRSA negative, vanc discontinued 09/12 Blood cultures collected on 09/11: NGTD Send sputum cultures 1L NC supplemental O2 requirement. Keep SpO2 greater than 90% weaned on RA Monitor vital signs, I&Os, neuro status and patient is a fall risk Follow WBC, serum electrolytes, temperature curves and cultures Pleural effusion CT chest moderate to large left pleural effusion with near complete left lower lobe atelectasis Thoracentesis performed 09/16, yielding 200 ml of dark red fluid. Diagnostics tests ordered. Hol
[2023-09-19 16:21] LABS: Glucose Point of Care 265 mg/dl (65-105)
[2023-09-19 20:04] LABS: Glucose Point of Care 190 mg/dl (65-105)
[2023-09-19] MEDS: INSULIN GLARGINE (*BKC) 100 UNITS/ML 20 UNITS SUB-Q (20:29)
[2023-09-19] MEDS: ATORVASTATIN 40 MG TABLET 80 MG PO (20:29)
[2023-09-19] MEDS: SENNA/DOCUSATE SODIUM TABLET 1 TAB PO (20:29)
[2023-09-19] MEDS: MELATONIN 5 MG TABLET 10 MG PO (20:30)
[2023-09-20] VITALS (12 sets, daily range): BP systolic 158–183; BP diastolic 57–61; PULSE 55–73; RESP 15–18; TEMP 36.1–36.6; O2SAT 94–97
[2023-09-20] MEDS: glipiZIDE 5 MG TABLET 10 MG PO ×2 (06:13→16:43)
[2023-09-20] MEDS: metroNIDAZOLE 500 MG TABLET PO ×3 (06:13→20:18)
--- NOTE | 2023-09-20 06:25 | PC.NURSE ---
I have review the charting of [facility], and am in agreement with the findings. We will continue to monitor and review for changes
[2023-09-20 07:07] LABS: Hematocrit 29.7 % (42.0-52.0); Hemoglobin 9.3 g/dL (14.0-18.0); Mean Corpuscular HGB Conc 31.3 g/dl (32-36); Mean Corpuscular Hemoglobin 27.2 pg (26-34); Mean Corpuscular Volume 86.8 fl (80-100); Mean Platelet Volume 10.5 fl (7.4-10.4); Platelet Count Result 253 k/mm3 (150-375); Red Blood Count 3.42 M/mm3 (4.6-6.20); Red Cell Distribution Width 14.7 % (11.5-14.5); White Blood Count 12.7 K/mm3 (4.5-10.0)
[2023-09-20 07:24] LABS: Alanine Aminotransferase 8 U/L (6-50); Albumin Level 2.6 g/dL (3.5-5.1); Alkaline Phosphatase 76 U/L (38-126); Anion Gap 1 mmol/L (4-12); Aspartate Amino Transferase 23 U/L (17-59); Bilirubin,Total 0.4 mg/dL (0.2-1.3); Blood Urea Nitrogen 33 mg/dL (9-20); Carbon Dioxide 29 mmol/L (22-30); Chloride 108 mmol/L (98-107); Estimated CRCL calculation 36 ml/min; Estimated Glomerular Filt Rate 34; Glucose 154 mg/dL (65-110); Potassium 4.1 mmol/L (3.4-5.0); Sodium 138 mmol/L (137-145)
[2023-09-20 08:39] LABS: Glucose Point of Care 139 mg/dl (65-105)
[2023-09-20] MEDS: OMEGA 3 POLYUNSAT FATTY ACIDS 1 GM CAP PO (08:40)
[2023-09-20] MEDS: CLOPIDOGREL BISULFATE 75 MG TABLET PO (08:41)
[2023-09-20] MEDS: guaiFENesin 12 HR 600 MG TABCR 1200 MG PO ×2 (08:41→20:18)
[2023-09-20] MEDS: AMOXICILLIN/CLAVULANATE K 875-125 MG TAB 1 TABLET PO ×2 (08:41→20:18)
[2023-09-20] MEDS: carvediloL 25 MG TABLET PO ×2 (08:41→16:43)
[2023-09-20] MEDS: GABAPENTIN 100 MG CAPSULE PO ×3 (08:41→16:43)
[2023-09-20] MEDS: ASPIRIN 325 MG ENTERIC TABLET PO (08:41)
[2023-09-20] MEDS: PANTOPRAZOLE 40 MG TABLET PO (08:41)
[2023-09-20] MEDS: ramipriL 5 MG CAPSULE 10 MG PO (08:41)
[2023-09-20] MEDS: PARoxetine 20 MG TABLET 40 MG PO (08:41)
[2023-09-20] MEDS: HEPARIN SODIUM 5,000 UNITS/ML VIAL 5000 UNITS SUB-Q ×2 (08:41→20:20)
[2023-09-20] MEDS: FUROSEMIDE INJ 40 MG/4 ML VIAL 20 MG IV PUSH (08:42)
[2023-09-20] MEDS: hydrALAZINE HCL 20 MG/ML VIAL 10 MG IV PUSH (08:45)
[2023-09-20] MEDS: hydrALAZINE HCL 25 MG TABLET PO ×3 (08:45→16:43)
[2023-09-20] MEDS: SULFAMETHOXAZOLE/TRIMETHOPRIM 400/80 MG TABLET 1 TAB PO ×2 (09:12→20:18)
[2023-09-20 11:32] LABS: Glucose Point of Care 260 mg/dl (65-105)
--- NOTE | 2023-09-20 11:45 | P.PNIM_ITS ---
Progress Note: A&P Assessment and Plan (1) Acute respiratory failure with hypoxia: Code(s): J96.01 - Acute respiratory failure with hypoxia Status: Acute (2) Acute exacerbation of CHF (congestive heart failure): Code(s): I50.9 - Heart failure, unspecified Status: Acute (3) Hospital-acquired pneumonia: Code(s): J18.9 - Pneumonia, unspecified organism; Y95 - Nosocomial condition Status: Acute (4) Pleural effusion: Code(s): J90 - Pleural effusion, not elsewhere classified Status: Acute (5) Cholecystitis: Code(s): K81.9 - Cholecystitis, unspecified Status: Acute (6) Chest pain: Qualifiers: Chest pain type: unspecified Qualified Code(s): R07.9 - Chest pain, unspecified Code(s): R07.9 - Chest pain, unspecified Status: Acute (7) Constipation: Qualifiers: Constipation type: unspecified constipation type Qualified Code(s): K59.00 - Constipation, unspecified Code(s): K59.00 - Constipation, unspecified Status: Acute (8) Chronic kidney disease, stage 3: Qualifiers: Chronic kidney disease stage 3 subtype: stage 3b (GFR 30-44) Qualified Code(s): N18.32 - Chronic kidney disease, stage 3b Code(s): N18.30 - Chronic kidney disease, stage 3 unspecified Status: Chronic (9) Insulin dependent type 2 diabetes mellitus: Code(s): E11.9 - Type 2 diabetes mellitus without complications; 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 * HIDA 09/15: acute cholecystitis * Surgery consulted * Patient is a poor surgical candidate at this time. Will set up a percutaneous cholecystotomy tube and continue antibiotics * Cholecystostomy tube placed 09/15 * Antibiotics: Cefe and flagyl * Advanced diet 09/19/2023: * transitioned to PO Flagyl/Augmentin 09/20/2023: * Bump in the WBC * Added Bactrim p.o. for full coverage ABX * Follow-up CBC in a.m. to ensure downtrend of WBC prior to discharge Acute respiratory failure with hypoxia-Resolved * Multifocal CHF exacerbation pneumonia * 89% POA * weaned supplemental oxygen Acute on chronic diastolic heart failure * BNP [id number] * cardiology consulted * IV Lasix b.i.d. * monitor renal function during diuresis * previous echocardiogram Echo 08/01/23: LVEF 60-65% and grade I diastolic dysfunction * echocardiogram pending * EKG: SR BBB * chest x-ray: mall left pleural effusion with associated atelectasis and/or pneumonia in the left lower lung zone. CT chest moderate to large left pleural effusion with near complete left lower lobe atelectasis * Daily weight. * Monitor serum electrolytes, Keep serum Potassium>4 and serum Magnesium>2 and CBC Pneumonia HAP-Resolved * Chest XR 09/10: Small left pleural effusion with associated atelectasis and/or pneumonia in the left lower lung zone. * CT chest moderate to large left pleural effusion with near complete left lower lobe atelectasis * Risk Factors: recent hospitalization * Complicating Factors: large pleural effusion and prior pneumococcal inf
--- NOTE | 2023-09-20 11:45 | PM.IMPN ---
Progress Note: A&P Assessment and Plan (1) Acute respiratory failure with hypoxia: Code(s): J96.01 - Acute respiratory failure with hypoxia Status: Acute (2) Acute exacerbation of CHF (congestive heart failure): Code(s): I50.9 - Heart failure, unspecified Status: Acute (3) Hospital-acquired pneumonia: Code(s): J18.9 - Pneumonia, unspecified organism; Y95 - Nosocomial condition Status: Acute (4) Pleural effusion: Code(s): J90 - Pleural effusion, not elsewhere classified Status: Acute (5) Cholecystitis: Code(s): K81.9 - Cholecystitis, unspecified Status: Acute (6) Chest pain: Qualifiers: Chest pain type: unspecified Qualified Code(s): R07.9 - Chest pain, unspecified Code(s): R07.9 - Chest pain, unspecified Status: Acute (7) Constipation: Qualifiers: Constipation type: unspecified constipation type Qualified Code(s): K59.00 - Constipation, unspecified Code(s): K59.00 - Constipation, unspecified Status: Acute (8) Chronic kidney disease, stage 3: Qualifiers: Chronic kidney disease stage 3 subtype: stage 3b (GFR 30-44) Qualified Code(s): N18.32 - Chronic kidney disease, stage 3b Code(s): N18.30 - Chronic kidney disease, stage 3 unspecified Status: Chronic (9) Insulin dependent type 2 diabetes mellitus: Code(s): E11.9 - Type 2 diabetes mellitus without complications; 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 HIDA 09/15: acute cholecystitis Surgery consulted Patient is a poor surgical candidate at this time. Will set up a percutaneous cholecystotomy tube and continue antibiotics Cholecystostomy tube placed 09/15 Antibiotics: Cefe and flagyl Advanced diet 09/19/2023: transitioned to PO Flagyl/Augmentin 09/20/2023: Bump in the WBC Added Bactrim p.o. for full coverage ABX Follow-up CBC in a.m. to ensure downtrend of WBC prior to discharge Acute respiratory failure with hypoxia-Resolved Multifocal CHF exacerbation pneumonia 89% POA weaned supplemental oxygen Acute on chronic diastolic heart failure BNP 11868 cardiology consulted IV Lasix b.i.d. monitor renal function during diuresis previous echocardiogram Echo 08/01/23: LVEF 60-65% and grade I diastolic dysfunction echocardiogram pending EKG: SR BBB chest x-ray: mall left pleural effusion with associated atelectasis and/or pneumonia in the left lower lung zone. CT chest moderate to large left pleural effusion with near complete left lower lobe atelectasis Daily weight. Monitor serum electrolytes, Keep serum Potassium>4 and serum Magnesium>2 and CBC Pneumonia HAP-Resolved Chest XR 09/10: Small left pleural effusion with associated atelectasis and/or pneumonia in the left lower lung zone. CT chest moderate to large left pleural effusion with near complete left lower lobe atelectasis Risk Factors: recent hospitalization Complicating Factors: large pleural effusion and prior pneumococcal infection started on HAP tx: cefe, flagyl Viral PCR: Flu/COVID/RSV negative MRSA negative, vanc discontinued 09/12 Blood cultures collected on 09/11: NGTD Send sputum cultures 1L NC supplemental O2 requirement. Keep SpO2 greater than 90% weaned on RA Monitor vital signs, I&Os, neuro status and patient is a fall risk Follow WBC, serum electrolytes, temperature curves and cultures Pleural effusion CT chest moderate to large left pleural eff
--- NOTE | 2023-09-20 11:56 | PM.PNGS ---
Progress Note: A&P Assessment and Plan (1) Cholecystitis: Code(s): K81.9 - Cholecystitis, unspecified Status: Acute Assessment and Plan: doing well, exam cont to be benign, jessica diet, ok to dc c drain and abx from surgical standpoint, f/u as outpt in 2 wks Subjective Subjective Date/Time Seen: 09/20/23 11:56 Interval history: feels good, no acute issues, jessica diabetic diet Review of Systems Review of Systems: All systems reviewed & are unremarkable except as noted in HPI and below Exam Const: General: cooperative, comfortable, no acute distress and ill appearing Resp: Auscultation: diminished lung sounds Cardio: Rate: regular rate Rhythm: regular rhythm GI: Inspection: normal to inspection and distended GI Palp: No abdominal tenderness, Yes Soft to palpation and No Tenderness to palpation present (GI) Other: crystal drain c bilious drainage Objective Data Vital Signs Vital Signs: Vital Signs - 24 hr 09/19/23 12:00 09/19/23 14:00 09/19/23 16:07 Temperature 36.4 C Pulse Rate 58 L 57 L 65 Respiratory Rate 20 Blood Pressure 160/67 H Pulse Oximetry Oxygen Delivery Oxygen Flow Rate 09/19/23 20:00 09/19/23 20:00 09/19/23 21:00 Temperature 36.1 C L Pulse Rate 57 L Respiratory Rate 16 Blood Pressure 181/62 H 180/60 H Pulse Oximetry 97 97 Oxygen Delivery Nasal Cannula Oxygen Flow Rate 1 09/19/23 20:00 09/20/23 00:00 09/20/23 04:00 Temperature Pulse Rate 59 L 55 L 58 L Respiratory Rate Blood Pressure Pulse Oximetry Oxygen Delivery Oxygen Flow Rate 09/20/23 05:52 09/20/23 08:41 09/20/23 08:00 Temperature 36.1 C L Pulse Rate 59 L 60 61 Respiratory Rate 18 Blood Pressure 183/61 H Pulse Oximetry 96 Oxygen Delivery Oxygen Flow Rate Intake/Output Intake/Output: Intake & Output 09/17/23 09/18/23 09/19/23 09/20/23 23:59 23:59 23:59 23:59 Intake Total 682 967 8595 360 Output Total 260 520 662 430 Balance 892 606 4261 -70 Meds/Results Medications: Active Medications Generic Name Dose Route Start Last Admin Trade Name Freq PRN Reason Stop Dose Admin Acetaminophen 650 mg 09/12/23 22:38 09/15/23 13:13 Acetaminophen 325 Mg Tablet PO 650 mg Q6H PRN Administration Mild Pain (1-3) or Fever Albuterol 2 puff 09/11/23 13:35 Albuterol Sulfate (*Sp) Aerosol 1 Puff INHALATION QID PRN shortness of breath or wheezing Amoxicillin/Clavulanate Potassium 1 tablet 09/19/23 09:30 09/20/23 08:41 Amoxicillin/Clavulanate K 875-125 Mg Tab PO 1 tablet Q12HR GEOFFREY Administration Aspirin 325 mg 09/12/23 09:00 09/20/23 08:41 Aspirin 325 Mg Enteric Tablet PO 325 mg QAM GEOFFREY Administration Atorvastatin Calcium 80 mg 09/11/23 21:00 09/19/23 20:29 Atorvastatin 40 Mg Tablet PO 80 mg HS GEOFFREY Administration Carvedilol 25 mg 09/13/23 08:00 09/20/23 08:41 Carvedilol 25 Mg Tablet PO 25 mg BIDWM GEOFFREY Administration Clopidogrel Bisulfate 75 mg 09/12/23 09:00 09/20/23 08:41 Clopidogrel Bisulfate 75 Mg Tablet PO 75 mg DAILY GEOFFREY Administration Dextrose 12.5 gm 09/11/23 13:44 Dextrose 50% 25 Gm/50 Ml Syringe IV PUSH PRN PRN Hypoglycemia Protocol Fish Oil 1 gm 09/12/23 09:00 09/20/23 08:40 Meta 3 Polyunsat Fatty Acids 1 Gm Cap PO 1 gm QAM GEOFFREY Administration Furosemide 20 mg 09/12/23 09:00 09/20/23 08:42 Furosemide Inj 40 Mg/4 Ml Vial IV PUSH 20 mg DAILY GEOFFREY Administration Gabapentin 100 mg 09/11/23 14:00 09/20/23 08:41 Gabapentin 100 Mg Capsule PO 100 mg TID GEOFFREY Administration Glipizide 10 mg 09/11/23 16:30 09/20/23 06:13 Glipizide 5 Mg Tablet PO 10 mg BIDAC GEOFFREY Administration Glucagon 1 mg 09/11/23 13:44 Glucagon For Inj 1 Mg Vial IM PRN PRN Hypoglycemia Protocol Glucose 15 gm 09/11/23 13:44 09/15/23 08:06 Glucose Oral Gel 15 Gm Of Glucse In 37.5 Gm
[2023-09-20] MEDS: INSULIN ASPART (*BKC) 100 UNITS/ML SUB-Q (11:59)
[2023-09-20 16:41] LABS: Glucose Point of Care 196 mg/dl (65-105)
[2023-09-20] MEDS: MELATONIN 5 MG TABLET 10 MG PO (20:18)
[2023-09-20] MEDS: SENNA/DOCUSATE SODIUM TABLET 1 TAB PO (20:18)
[2023-09-20] MEDS: ATORVASTATIN 40 MG TABLET 80 MG PO (20:18)
[2023-09-20] MEDS: INSULIN GLARGINE (*BKC) 100 UNITS/ML 20 UNITS SUB-Q (20:19)
[2023-09-20 21:30] LABS: Glucose Point of Care 139 mg/dl (65-105)
[2023-09-21] VITALS (14 sets, daily range): BP systolic 156–190; BP diastolic 55–80; PULSE 57–65; RESP 15–19; TEMP 36–36.6; O2SAT 86–100
[2023-09-21 05:52] LABS: Hematocrit 30.7 % (42.0-52.0); Hemoglobin 9.3 g/dL (14.0-18.0); Mean Corpuscular HGB Conc 30.3 g/dl (32-36); Mean Corpuscular Hemoglobin 26.8 pg (26-34); Mean Corpuscular Volume 88.5 fl (80-100); Mean Platelet Volume 10.4 fl (7.4-10.4); Platelet Count Result 260 k/mm3 (150-375); Red Blood Count 3.47 M/mm3 (4.6-6.20); Red Cell Distribution Width 14.7 % (11.5-14.5); White Blood Count 15.5 K/mm3 (4.5-10.0)
[2023-09-21 06:05] LABS: Alanine Aminotransferase 9 U/L (6-50); Albumin Level 2.6 g/dL (3.5-5.1); Alkaline Phosphatase 76 U/L (38-126); Anion Gap 1 mmol/L (4-12); Aspartate Amino Transferase 22 U/L (17-59); Bilirubin,Total 0.3 mg/dL (0.2-1.3); Blood Urea Nitrogen 34 mg/dL (9-20); Calcium 8.2 mg/dL (8.4-10.2); Carbon Dioxide 28 mmol/L (22-30); Chloride 107 mmol/L (98-107); Estimated CRCL calculation 38 ml/min; Estimated Glomerular Filt Rate 36; Glucose 92 mg/dL (65-110); Potassium 3.9 mmol/L (3.4-5.0); Sodium 136 mmol/L (137-145)
[2023-09-21] MEDS: metroNIDAZOLE 500 MG TABLET PO (06:13)
[2023-09-21] MEDS: glipiZIDE 5 MG TABLET 10 MG PO ×2 (06:13→16:31)
[2023-09-21 07:45] LABS: Glucose Point of Care 97 mg/dl (65-105)
[2023-09-21] MEDS: FUROSEMIDE INJ 40 MG/4 ML VIAL 20 MG IV PUSH (08:14)
[2023-09-21] MEDS: carvediloL 25 MG TABLET PO ×2 (08:14→16:32)
[2023-09-21] MEDS: PARoxetine 20 MG TABLET 40 MG PO (08:14)
[2023-09-21] MEDS: SULFAMETHOXAZOLE/TRIMETHOPRIM 400/80 MG TABLET 1 TAB PO (08:14)
[2023-09-21] MEDS: HEPARIN SODIUM 5,000 UNITS/ML VIAL 5000 UNITS SUB-Q ×2 (08:14→20:47)
[2023-09-21] MEDS: CLOPIDOGREL BISULFATE 75 MG TABLET PO (08:14)
[2023-09-21] MEDS: OMEGA 3 POLYUNSAT FATTY ACIDS 1 GM CAP PO (08:14)
[2023-09-21] MEDS: GABAPENTIN 100 MG CAPSULE PO ×3 (08:14→16:32)
[2023-09-21] MEDS: AMOXICILLIN/CLAVULANATE K 875-125 MG TAB 1 TABLET PO (08:14)
[2023-09-21] MEDS: guaiFENesin 12 HR 600 MG TABCR 1200 MG PO ×2 (08:15→20:47)
[2023-09-21] MEDS: ramipriL 5 MG CAPSULE 10 MG PO (08:15)
[2023-09-21] MEDS: PANTOPRAZOLE 40 MG TABLET PO (08:15)
[2023-09-21] MEDS: ASPIRIN 325 MG ENTERIC TABLET PO (08:15)
[2023-09-21] MEDS: hydrALAZINE HCL 25 MG TABLET 50 MG PO ×3 (08:21→16:31)
--- NOTE | 2023-09-21 10:49 | P.PNIM_ITS ---
Progress Note: A&P Assessment and Plan (1) Acute respiratory failure with hypoxia: Code(s): J96.01 - Acute respiratory failure with hypoxia Status: Acute (2) Acute exacerbation of CHF (congestive heart failure): Code(s): I50.9 - Heart failure, unspecified Status: Acute (3) Hospital-acquired pneumonia: Code(s): J18.9 - Pneumonia, unspecified organism; Y95 - Nosocomial condition Status: Acute (4) Pleural effusion: Code(s): J90 - Pleural effusion, not elsewhere classified Status: Acute (5) Cholecystitis: Code(s): K81.9 - Cholecystitis, unspecified Status: Acute (6) Chest pain: Qualifiers: Chest pain type: unspecified Qualified Code(s): R07.9 - Chest pain, unspecified Code(s): R07.9 - Chest pain, unspecified Status: Acute (7) Constipation: Qualifiers: Constipation type: unspecified constipation type Qualified Code(s): K59.00 - Constipation, unspecified Code(s): K59.00 - Constipation, unspecified Status: Acute (8) Chronic kidney disease, stage 3: Qualifiers: Chronic kidney disease stage 3 subtype: stage 3b (GFR 30-44) Qualified Code(s): N18.32 - Chronic kidney disease, stage 3b Code(s): N18.30 - Chronic kidney disease, stage 3 unspecified Status: Chronic (9) Insulin dependent type 2 diabetes mellitus: Code(s): E11.9 - Type 2 diabetes mellitus without complications; 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 Diagnostics tests ordered. * Holding Plavix, will likely restart tomorrow 09/21/2023: * Patient still in 1 L oxygen * WBC trending up to 15.5 * CXR is showing loculated pleural effusion * HX thoracentesis/and recent pneumococcal infection * Pulmonary consulted Cholecystitis * RUQ US: Dilated gallbladder with wall thickening and sludge and tiny gallstones, the latter evident on prior CT which is suspicious for acute cholecystitis however the sonographic Perry sign was reported as negative. * HIDA 09/15: acute cholecystitis * Surgery consulted * Patient is a poor surgical candidate at this time. Will set up a percutaneous cholecystotomy tube and continue antibiotics * Cholecystostomy tube placed 09/15 * Antibiotics: Cefe and flagyl * Advanced diet 09/19/2023: * transitioned to PO Flagyl/Augmentin 09/20/2023: * Bump in the WBC * Added Bactrim p.o. for full coverage ABX * Follow-up CBC in a.m. to ensure downtrend of WBC prior to discharge Acute respiratory failure with hypoxia-Resolved * Multifocal CHF exacerbation pneumonia * 89% POA * weaned supplemental oxygen Acute on chronic diastolic heart failure * BNP 55279 * cardiology consulted * IV Lasix b.i.d. * monitor renal function during diuresis * previous echocardiogram Echo 08/01/23: LVEF 60-65% and grade I diastolic dysfunction * echocardiogram pending * EKG: SR BBB * chest x-ray: mall left pleural effusion with associated atelectasis and/or pneumonia in the left lower lung zone. CT chest moderate to large left pleural effusion with near complete left lower lobe a
--- NOTE | 2023-09-21 10:49 | PM.IMPN ---
Progress Note: A&P Assessment and Plan (1) Acute respiratory failure with hypoxia: Code(s): J96.01 - Acute respiratory failure with hypoxia Status: Acute (2) Acute exacerbation of CHF (congestive heart failure): Code(s): I50.9 - Heart failure, unspecified Status: Acute (3) Hospital-acquired pneumonia: Code(s): J18.9 - Pneumonia, unspecified organism; Y95 - Nosocomial condition Status: Acute (4) Pleural effusion: Code(s): J90 - Pleural effusion, not elsewhere classified Status: Acute (5) Cholecystitis: Code(s): K81.9 - Cholecystitis, unspecified Status: Acute (6) Chest pain: Qualifiers: Chest pain type: unspecified Qualified Code(s): R07.9 - Chest pain, unspecified Code(s): R07.9 - Chest pain, unspecified Status: Acute (7) Constipation: Qualifiers: Constipation type: unspecified constipation type Qualified Code(s): K59.00 - Constipation, unspecified Code(s): K59.00 - Constipation, unspecified Status: Acute (8) Chronic kidney disease, stage 3: Qualifiers: Chronic kidney disease stage 3 subtype: stage 3b (GFR 30-44) Qualified Code(s): N18.32 - Chronic kidney disease, stage 3b Code(s): N18.30 - Chronic kidney disease, stage 3 unspecified Status: Chronic (9) Insulin dependent type 2 diabetes mellitus: Code(s): E11.9 - Type 2 diabetes mellitus without complications; 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 Diagnostics tests ordered. Holding Plavix, will likely restart tomorrow 09/21/2023: Patient still in 1 L oxygen WBC trending up to 15.5 CXR is showing loculated pleural effusion HX thoracentesis/and recent pneumococcal infection Pulmonary consulted Cholecystitis RUQ US: Dilated gallbladder with wall thickening and sludge and tiny gallstones, the latter evident on prior CT which is suspicious for acute cholecystitis however the sonographic Perry sign was reported as negative. HIDA 09/15: acute cholecystitis Surgery consulted Patient is a poor surgical candidate at this time. Will set up a percutaneous cholecystotomy tube and continue antibiotics Cholecystostomy tube placed 09/15 Antibiotics: Cefe and flagyl Advanced diet 09/19/2023: transitioned to PO Flagyl/Augmentin 09/20/2023: Bump in the WBC Added Bactrim p.o. for full coverage ABX Follow-up CBC in a.m. to ensure downtrend of WBC prior to discharge Acute respiratory failure with hypoxia-Resolved Multifocal CHF exacerbation pneumonia 89% POA weaned supplemental oxygen Acute on chronic diastolic heart failure BNP 86639 cardiology consulted IV Lasix b.i.d. monitor renal function during diuresis previous echocardiogram Echo 08/01/23: LVEF 60-65% and grade I diastolic dysfunction echocardiogram pending EKG: SR BBB chest x-ray: mall left pleural effusion with associated atelectasis and/or pneumonia in the left lower lung zone. CT chest moderate to large left pleural effusion with near complete left lower lobe atelectasis Daily weight. Monitor serum electrolytes, Keep serum Potassium>4 and serum Magnesium>2 and CBC Pneumonia HAP Chest XR 09/10: Small left pleural effusion with associated atelectasis and/or pneumonia in the left lower lung zone. CT chest moderate to large left pleural effusion with near complete left lower lobe atelectasis Risk Factors: recent hospitalization Complicating Factors: large pleural effusion and prior pneumococcal infection started on [facility]
--- NOTE | 2023-09-21 10:59 | PM.PNGS ---
Progress Note: A&P Assessment and Plan (1) Cholecystitis: Code(s): K81.9 - Cholecystitis, unspecified Status: Acute Assessment and Plan: exam cont to be benign, jessica diet, slowly increasing leukocytosis but unlikely from cholecystitis given benign exam and good drainage, cont abx, still ok to dc from surgical standpoint Subjective Subjective Date/Time Seen: 09/21/23 10:59 Interval history: no acute issues, no abd pain, jessica diabetic diet Review of Systems Review of Systems: All systems reviewed & are unremarkable except as noted in HPI and below Exam Const: General: cooperative, comfortable and no acute distress Resp: Auscultation: diminished lung sounds Cardio: Rate: regular rate Rhythm: regular rhythm GI: Inspection: normal to inspection GI Palp: No abdominal tenderness and Yes Soft to palpation Other: crystal drain c bilious drainage Objective Data Vital Signs Vital Signs: Vital Signs - 24 hr 09/20/23 13:47 09/20/23 12:00 09/20/23 16:00 Temperature Pulse Rate 73 62 Respiratory Rate Blood Pressure Pulse Oximetry 94 Oxygen Delivery Nasal Cannula Oxygen Flow Rate 1 09/20/23 16:43 09/20/23 14:00 09/20/23 22:00 Temperature 36.6 C 36.2 C L Pulse Rate 63 57 L 64 Respiratory Rate 18 15 Blood Pressure 158/57 H 175/61 H Pulse Oximetry 97 96 Oxygen Delivery Oxygen Flow Rate 09/20/23 20:00 09/20/23 20:00 09/21/23 00:00 Temperature Pulse Rate 64 60 Respiratory Rate Blood Pressure Pulse Oximetry 97 Oxygen Delivery Nasal Cannula Oxygen Flow Rate 1 09/21/23 04:00 09/21/23 06:00 09/21/23 08:15 Temperature 36.0 C L Pulse Rate 63 60 Respiratory Rate 15 Blood Pressure 164/63 H Pulse Oximetry 98 98 Oxygen Delivery Nasal Cannula Oxygen Flow Rate 1 09/21/23 08:20 09/21/23 08:26 09/21/23 08:00 Temperature Pulse Rate 57 L Respiratory Rate Blood Pressure Pulse Oximetry 86 L 93 Oxygen Delivery Room Air Nasal Cannula Oxygen Flow Rate 1 Intake/Output Intake/Output: Intake & Output 09/18/23 09/19/23 09/20/23 09/21/23 23:59 23:59 23:59 23:59 Intake Total 800 1720 1680 618 Output Total 420 004 3225 700 Balance 280 1058 240 -82 Meds/Results Medications: Active Medications Generic Name Dose Route Start Last Admin Trade Name Freq PRN Reason Stop Dose Admin Acetaminophen 650 mg 09/12/23 22:38 09/15/23 13:13 Acetaminophen 325 Mg Tablet PO 650 mg Q6H PRN Administration Mild Pain (1-3) or Fever Albuterol 2 puff 09/11/23 13:35 Albuterol Sulfate (*Sp) Aerosol 1 Puff INHALATION QID PRN shortness of breath or wheezing Amoxicillin/Clavulanate Potassium 1 tablet 09/19/23 09:30 09/21/23 08:14 Amoxicillin/Clavulanate K 875-125 Mg Tab PO 1 tablet Q12HR GEOFFREY Administration Aspirin 325 mg 09/12/23 09:00 09/21/23 08:15 Aspirin 325 Mg Enteric Tablet PO 325 mg QAM GEOFFREY Administration Atorvastatin Calcium 80 mg 09/11/23 21:00 09/20/23 20:18 Atorvastatin 40 Mg Tablet PO 80 mg HS GEOFFREY Administration Carvedilol 25 mg 09/13/23 08:00 09/21/23 08:14 Carvedilol 25 Mg Tablet PO 25 mg BIDWM GEOFFREY Administration Clopidogrel Bisulfate 75 mg 09/12/23 09:00 09/21/23 08:14 Clopidogrel Bisulfate 75 Mg Tablet PO 75 mg DAILY GEOFFREY Administration Dextrose 12.5 gm 09/11/23 13:44 Dextrose 50% 25 Gm/50 Ml Syringe IV PUSH PRN PRN Hypoglycemia Protocol Fish Oil 1 gm 09/12/23 09:00 09/21/23 08:14 [place] 3 Polyunsat Fatty Acids 1 Gm Cap PO 1 gm QAM GEOFFREY Administration Furosemide 20 mg 09/12/23 09:00 09/21/23 08:14 Furosemide Inj 40 Mg/4 Ml Vial IV PUSH 20 mg DAILY GEOFFREY Administration Gabapentin 100 mg 09/11/23 14:00 09/21/23 08:14 Gabapentin 100 Mg Capsule PO 100 mg TID GEOFFREY Administration Glipizide 10 mg 09/11/23 16:30 09/21/23 06:13 Glipizide 5 Mg Tablet PO 10 mg BIDAC GEOFFREY
[2023-09-21 11:08] LABS: Glucose Point of Care 209 mg/dl (65-105)
[2023-09-21] MEDS: INSULIN ASPART (*BKC) 100 UNITS/ML SUB-Q ×2 (11:33→16:31)
--- NOTE | 2023-09-21 11:58 | PM.CNPUL ---
Assessment and Plan Assessment and plan (1) Pleural effusion: Code(s): J90 - Pleural effusion, not elsewhere classified Status: Acute Assessment and Plan: patient with a new left pleural effusion since 07/29/2023 in the setting of acute cholecystitis. CT scan of the chest on 09/12/23 with moderate to large left pleural effusion and adjacent atelectasis at the lower lobe. 09/17/2023 patient had a left thoracentesis with 200 mL of dark red fluid removed. PH was 7.33, Gram stain showed no white blood cells, no organisms. White blood cells 1187 with 45% neutrophils, 45% lymphocytes, 8% monocytes, macrophages 2%. Cytology was negative. Chest x-ray on 09/17/2023 post thoracentesis showed a small left pleural effusion. 09/20/2022: The patient has been afebrile since 09/15/2023 white blood cell count 15.5, creatinine 1.9, weight is 84.2, I/O demonstrate 3.3 L fluid positive since admission. The patient tells me he has improved since when he was admitted. Currently he denies fever, chills, rigors, cough, phlegm, hemoptysis or any shortness of breath. He says he feels normal but the feels that he is more tired and has weaker speech than his normal. When I entered the room he is on 1 L nasal cannula with saturations 98%. I decreased him to room air and after 14 minutes his saturations were 94%. Chest x-ray 09/21/2023 shows small left pleural effusion with left lower lobe infiltrate with no change since 09/17/2023. Current left effusion is a noninfected, cytology negative, neutrophilic and lymphocytic effusion that is not rapidly reaccumulating. Plan: Patient remains afebrile and has no respiratory complaints. Goal saturation 90-94%. Wean oxygen accordingly. Patient continues with the loculated left pleural effusion. Awaiting additional chemistries to determine if this is a transudate or an exudate. Follow cultures. From a pulmonary perspective patient does not require antibiotics. incentive spirometry q.2 hours while awake and out of bed if tolerated for likely atelectasis in this obese man who is been in bed. If leukocytosis persists, consider CT scan chest abdomen and pelvis. Discussed with Amarilys Johnston, will sign off, call with questions History of Present Illness History of Present Illness Consult date: 09/21/23 Chief complaint: CHF Narrative: 09/21/2023: This is a new pulmonary consult for left pleural effusion. 62-year-old with a history of CKD, bipolar, CVA with left-sided weakness and bedbound, coronary artery disease status post MO and CABG, paroxysmal atrial fibrillation, peripheral arterial disease, vascular dementia, neuropathy, GERD, heart failure with preserved ejection fraction, hypertension, diabetes. Patient is a never smoker. He was not exposed to any secondhand smoke. patient was treated for aspiration pneumonia 07/28-08/01. Chest x-ray at that time showed no left pleural effusion. Patient presented to the hospital on 09/10 with shortness of breath right-sided abdominal pain and chest x-ray showed small left pleural effusion and CT scan of the chest showed a moderate to large left pleural effusion with adjacent atelectasis. Patient was initially treated with vancomycin, cefepime and Flagyl. On 09/16/2023 he had a cholecystotomy tube. 09/17/2023 patient had a left thoracentesis with 200 mL of dark red fluid removed. PH was 7.33, Gram stage showed no white blood cells, no organisms. White blood cells 1187 with 45% neutrophils, 45% lymphocytes, 8% monocytes, macrophages 2%. Cytology was negative. Chest x-ray on 09/17/2023 post thoracentesis showed a small left pleural effusion. 09/20/2022: The patient has been afebrile since 09/15/2023 white blood cell count 15.5, creatinine 1.9, weight is 84.2, I/O demonstrate 3.3 L fluid positive since admission. The patient tells me he has improved since when he was admitted. Currently he denies fever, chills, rigors, cough, phlegm
[2023-09-21] MEDS: metroNIDAZOLE 500 MG/ISO 100ML 500 MG/100 ML BAG 100 MG IVPB ×2 (13:05→20:48)
[2023-09-21 16:11] LABS: Glucose Point of Care 203 mg/dl (65-105)
[2023-09-21] MEDS: ATORVASTATIN 40 MG TABLET 80 MG PO (20:48)
[2023-09-21] MEDS: SENNA/DOCUSATE SODIUM TABLET 1 TAB PO (20:48)
[2023-09-21] MEDS: MELATONIN 5 MG TABLET 10 MG PO (20:48)
[2023-09-21] MEDS: INSULIN GLARGINE (*BKC) 100 UNITS/ML 20 UNITS SUB-Q (21:42)
[2023-09-21 21:44] LABS: Glucose Point of Care 202 mg/dl (65-105)
[2023-09-21] MEDS: hydrALAZINE HCL 20 MG/ML VIAL 10 MG IV PUSH (21:52)
[2023-09-22 06:00] VITALS: BP 172/63; PULSE 62; RESP 20; TEMP 36.5; O2SAT 98
[2023-09-22] MEDS: metroNIDAZOLE 500 MG/ISO 100ML 500 MG/100 ML BAG 100 MG IVPB (06:01)
[2023-09-22] MEDS: glipiZIDE 5 MG TABLET 10 MG PO (06:02)
[2023-09-22 06:14] LABS: Hematocrit 29.3 % (42.0-52.0); Mean Corpuscular HGB Conc 30.7 g/dl (32-36); Mean Platelet Volume 10.2 fl (7.4-10.4); Platelet Count Result 243 k/mm3 (150-375); Red Blood Count 3.33 M/mm3 (4.6-6.20); Red Cell Distribution Width 14.8 % (11.5-14.5); White Blood Count 14.6 K/mm3 (4.5-10.0)
[2023-09-22 06:36] LABS: Alanine Aminotransferase 9 U/L (6-50); Albumin Level 2.7 g/dL (3.5-5.1); Alkaline Phosphatase 77 U/L (38-126); Anion Gap 4 mmol/L (4-12); Aspartate Amino Transferase 19 U/L (17-59); Bilirubin,Total 0.4 mg/dL (0.2-1.3); Blood Urea Nitrogen 36 mg/dL (9-20); Calcium 8.1 mg/dL (8.4-10.2); Carbon Dioxide 26 mmol/L (22-30); Chloride 107 mmol/L (98-107); Estimated CRCL calculation 37 ml/min; Estimated Glomerular Filt Rate 36; Glucose 119 mg/dL (65-110); Potassium 4.2 mmol/L (3.4-5.0); Sodium 137 mmol/L (137-145)
[2023-09-22 07:53] LABS: Glucose Point of Care 100 mg/dl (65-105)
--- NOTE | 2023-09-22 08:26 | PM.PNGS ---
Progress Note: A&P Assessment and Plan (1) Cholecystitis: Code(s): K81.9 - Cholecystitis, unspecified Status: Acute Assessment and Plan: CT reviewed, tube in good position, cont abx, jessica diet, ok to dc c po abx and f/u as outpt from surgical standpoint Subjective Subjective Date/Time Seen: 09/22/23 08:26 Interval history: no acute issues, feels pretty good, wants to go home, jessica diet Review of Systems Review of Systems: All systems reviewed & are unremarkable except as noted in HPI and below Exam Const: General: cooperative, comfortable, no acute distress and ill appearing Resp: Auscultation: diminished lung sounds Cardio: Rate: regular rate Rhythm: regular rhythm GI: Inspection: normal to inspection and distended GI Palp: No abdominal tenderness, Yes Soft to palpation, No Tenderness to palpation present (GI), No Guarding due to palpation present (GI) and No Rigid due to palpation Other: crystal tube c bilious drainage Objective Data Vital Signs Vital Signs: Vital Signs - 24 hr 09/21/23 12:30 09/21/23 12:40 09/21/23 13:05 Temperature Pulse Rate 61 Respiratory Rate 18 Blood Pressure Pulse Oximetry 87 L 94 96 Oxygen Delivery Room Air Nasal Cannula Nasal Cannula Oxygen Flow Rate 1 1 09/21/23 14:00 09/21/23 20:00 09/21/23 22:00 Temperature 36.2 C L 36.6 C Pulse Rate 62 65 Respiratory Rate 19 18 Blood Pressure 172/55 H 190/80 H Pulse Oximetry 97 97 100 Oxygen Delivery Nasal Cannula Oxygen Flow Rate 1 09/21/23 22:45 09/22/23 06:00 Temperature 36.5 C Pulse Rate 62 Respiratory Rate 20 Blood Pressure 156/62 H 172/63 H Pulse Oximetry 98 Oxygen Delivery Oxygen Flow Rate Intake/Output Intake/Output: Intake & Output 09/19/23 09/20/23 09/21/23 09/22/23 23:59 23:59 23:59 23:59 Intake Total 1720 1680 2230 100 Output Total 662 1440 1325 400 Balance 1058 240 905 -300 Meds/Results Medications: Active Medications Generic Name Dose Route Start Last Admin Trade Name Freq PRN Reason Stop Dose Admin Acetaminophen 650 mg 09/12/23 22:38 09/15/23 13:13 Acetaminophen 325 Mg Tablet PO 650 mg Q6H PRN Administration Mild Pain (1-3) or Fever Albuterol 2 puff 09/11/23 13:35 Albuterol Sulfate (*Sp) Aerosol 1 Puff INHALATION QID PRN shortness of breath or wheezing Aspirin 325 mg 09/12/23 09:00 09/21/23 08:15 Aspirin 325 Mg Enteric Tablet PO 325 mg QAM GEOFFREY Administration Atorvastatin Calcium 80 mg 09/11/23 21:00 09/21/23 20:48 Atorvastatin 40 Mg Tablet PO 80 mg HS GEOFFREY Administration Carvedilol 25 mg 09/13/23 08:00 09/21/23 16:32 Carvedilol 25 Mg Tablet PO 25 mg BIDWM GEFOFREY Administration Clopidogrel Bisulfate 75 mg 09/12/23 09:00 09/21/23 08:14 Clopidogrel Bisulfate 75 Mg Tablet PO 75 mg DAILY GEOFFREY Administration Dextrose 12.5 gm 09/11/23 13:44 Dextrose 50% 25 Gm/50 Ml Syringe IV PUSH PRN PRN Hypoglycemia Protocol Fish Oil 1 gm 09/12/23 09:00 09/21/23 08:14 [place] 3 Polyunsat Fatty Acids 1 Gm Cap PO 1 gm QAM GEOFFREY Administration Furosemide 20 mg 09/12/23 09:00 09/21/23 08:14 Furosemide Inj 40 Mg/4 Ml Vial IV PUSH 20 mg DAILY GEOFFREY Administration Gabapentin 100 mg 09/11/23 14:00 09/21/23 16:32 Gabapentin 100 Mg Capsule PO 100 mg TID GEOFFREY Administration Glipizide 10 mg 09/11/23 16:30 09/22/23 06:02 Glipizide 5 Mg Tablet PO 10 mg BIDAC GEOFFREY Administration Glucagon 1 mg 09/11/23 13:44 Glucagon For Inj 1 Mg Vial IM PRN PRN Hypoglycemia Protocol Glucose 15 gm 09/11/23 13:44 09/15/23 08:06 Glucose Oral Gel 15 Gm Of Glucse In 37.5 Gm Tube PO 15 gm PRN PRN Administration Hypoglycemia Protocol Guaifenesin 1,200 mg 09/11/23 21:00 09/21/23 20:47 Guaifenesin 12 Hr 600 Mg Tabcr PO 1,200 mg Q12HR GEOFFREY Administration Heparin Sodium (Porcine) 5,000 units 09/13/23 21:0
[2023-09-22] MEDS: PARoxetine 20 MG TABLET 40 MG PO (09:21)
[2023-09-22] MEDS: guaiFENesin 12 HR 600 MG TABCR 1200 MG PO (09:21)
[2023-09-22] MEDS: ASPIRIN 325 MG ENTERIC TABLET PO (09:21)
[2023-09-22] MEDS: HEPARIN SODIUM 5,000 UNITS/ML VIAL 5000 UNITS SUB-Q (09:22)
[2023-09-22] MEDS: CLOPIDOGREL BISULFATE 75 MG TABLET PO (09:22)
[2023-09-22] MEDS: polyethylene glycoL 3350 17 GM POWD.PACK PO (09:22)
[2023-09-22] MEDS: PANTOPRAZOLE 40 MG TABLET PO (09:22)
[2023-09-22] MEDS: GABAPENTIN 100 MG CAPSULE PO (09:22)
[2023-09-22] MEDS: carvediloL 25 MG TABLET PO (09:22)
[2023-09-22] MEDS: FUROSEMIDE INJ 40 MG/4 ML VIAL 20 MG IV PUSH (09:22)
[2023-09-22] MEDS: OMEGA 3 POLYUNSAT FATTY ACIDS 1 GM CAP PO (09:22)
[2023-09-22] MEDS: NIFEdipine 30 MG TAB.ER.24 60 MG PO (09:27)
[2023-09-22 11:24] LABS: Glucose Point of Care 111 mg/dl (65-105)
--- NOTE | 2023-09-22 12:51 | PCRCNOTE ---
Patient was unable to get up to do a proper home O2 evaluation. Patient room air sat was 94%. Patient really exerted himself trying to sit up in order to stand but was unable to fully sit up as he was too tired from being up in a chair. His room air sat was 92% with exertion. I had patient lay fully back down and after 4 minutes rechecked and his room air sat was 95%. Rn notified
--- NOTE | 2023-09-22 13:35 | P.DS_ITS ---
DS: Admitting Diagnosis Discharge Date 09/22/2023 Admitting Diagnosis Acute respiratory failure with hypoxia/left pleural effusion/CHF/pneumonia/cholecystitis DS: Discharge Diagnosis Discharge Diagnosis (1) Acute respiratory failure with hypoxia: Code(s): J96.01 - Acute respiratory failure with hypoxia Status: Acute (2) Acute exacerbation of CHF (congestive heart failure): Code(s): I50.9 - Heart failure, unspecified Status: Acute (3) Hospital-acquired pneumonia: Code(s): J18.9 - Pneumonia, unspecified organism; Y95 - Nosocomial condition Status: Acute (4) Pleural effusion: Code(s): J90 - Pleural effusion, not elsewhere classified Status: Acute (5) Cholecystitis: Code(s): K81.9 - Cholecystitis, unspecified Status: Acute (6) Chest pain: Qualifiers: Chest pain type: unspecified Qualified Code(s): R07.9 - Chest pain, unspecified Code(s): R07.9 - Chest pain, unspecified Status: Acute (7) Constipation: Qualifiers: Constipation type: unspecified constipation type Qualified Code(s): K59.00 - Constipation, unspecified Code(s): K59.00 - Constipation, unspecified Status: Acute (8) Chronic kidney disease, stage 3: Qualifiers: Chronic kidney disease stage 3 subtype: stage 3b (GFR 30-44) Qualified Code(s): N18.32 - Chronic kidney disease, stage 3b Code(s): N18.30 - Chronic kidney disease, stage 3 unspecified Status: Chronic (9) Insulin dependent type 2 diabetes mellitus: Code(s): E11.9 - Type 2 diabetes mellitus without complications; Z79.4 - assisted (current) use of insulin Status: Chronic (10) Hypertension: Qualifiers: Hypertension type: unspecified Qualified Code(s): I10 - Essential (primary) hypertension Code(s): I10 - Essential (primary) hypertension Status: Chronic Plan Pleural effusion * CT chest moderate to large left pleural effusion with near complete left lower lobe atelectasis * Thoracentesis performed 09/16, yielding 200 ml of dark red fluid. Diagnostics tests ordered. * Holding Plavix, will likely restart tomorrow 09/21/2023: * Patient still in 1 L oxygen * WBC trending up to 15.5 * CXR is showing loculated pleural effusion * HX thoracentesis/and recent pneumococcal infection * Pulmonary consulted Cholecystitis * RUQ US: Dilated gallbladder with wall thickening and sludge and tiny gallstones, the latter evident on prior CT which is suspicious for acute cholecystitis however the sonographic Perry sign was reported as negative. * HIDA 09/15: acute cholecystitis * Surgery consulted * Patient is a poor surgical candidate at this time. Will set up a percutaneous cholecystotomy tube and continue antibiotics * Cholecystostomy tube placed 09/15 * Antibiotics: Cefe and flagyl * Advanced diet 09/19/2023: * transitioned to PO Flagyl/Augmentin 09/20/2023: * Bump in the WBC * Added Bactrim p.o. for full coverage ABX * Follow-up CBC in a.m. to ensure downtrend of WBC prior to discharge Acute respiratory failure with hypoxia-Resolved * Multifocal CHF exacerbation pneumonia * 89% POA * weaned supplemental oxygen Acute on chronic diastolic heart failure * BNP 76380 * cardiology consulted * IV Lasix b.i.d. * monitor renal function during diuresis * previous echocardiogram Echo 08/01/23: LVEF 60-65% and grade I diastolic dysfunction * echocardiogram pending * EKG: BBB * chest x-ray: rocco
--- NOTE | 2023-09-22 13:35 | PM.DS ---
DS: Admitting Diagnosis Discharge Date 09/22/2023 Admitting Diagnosis Acute respiratory failure with hypoxia/left pleural effusion/CHF/pneumonia/cholecystitis DS: Discharge Diagnosis Discharge Diagnosis (1) Acute respiratory failure with hypoxia: Code(s): J96.01 - Acute respiratory failure with hypoxia Status: Acute (2) Acute exacerbation of CHF (congestive heart failure): Code(s): I50.9 - Heart failure, unspecified Status: Acute (3) Hospital-acquired pneumonia: Code(s): J18.9 - Pneumonia, unspecified organism; Y95 - Nosocomial condition Status: Acute (4) Pleural effusion: Code(s): J90 - Pleural effusion, not elsewhere classified Status: Acute (5) Cholecystitis: Code(s): K81.9 - Cholecystitis, unspecified Status: Acute (6) Chest pain: Qualifiers: Chest pain type: unspecified Qualified Code(s): R07.9 - Chest pain, unspecified Code(s): R07.9 - Chest pain, unspecified Status: Acute (7) Constipation: Qualifiers: Constipation type: unspecified constipation type Qualified Code(s): K59.00 - Constipation, unspecified Code(s): K59.00 - Constipation, unspecified Status: Acute (8) Chronic kidney disease, stage 3: Qualifiers: Chronic kidney disease stage 3 subtype: stage 3b (GFR 30-44) Qualified Code(s): N18.32 - Chronic kidney disease, stage 3b Code(s): N18.30 - Chronic kidney disease, stage 3 unspecified Status: Chronic (9) Insulin dependent type 2 diabetes mellitus: Code(s): E11.9 - Type 2 diabetes mellitus without complications; Z79.4 - skilled nursing (current) use of insulin Status: Chronic (10) Hypertension: Qualifiers: Hypertension type: unspecified Qualified Code(s): I10 - Essential (primary) hypertension Code(s): I10 - Essential (primary) hypertension Status: Chronic Plan Pleural effusion CT chest moderate to large left pleural effusion with near complete left lower lobe atelectasis Thoracentesis performed 09/16, yielding 200 ml of dark red fluid. Diagnostics tests ordered. Holding Plavix, will likely restart tomorrow 09/21/2023: Patient still in 1 L oxygen WBC trending up to 15.5 CXR is showing loculated pleural effusion HX thoracentesis/and recent pneumococcal infection Pulmonary consulted Cholecystitis RUQ US: Dilated gallbladder with wall thickening and sludge and tiny gallstones, the latter evident on prior CT which is suspicious for acute cholecystitis however the sonographic Perry sign was reported as negative. HIDA 09/15: acute cholecystitis Surgery consulted Patient is a poor surgical candidate at this time. Will set up a percutaneous cholecystotomy tube and continue antibiotics Cholecystostomy tube placed 09/15 Antibiotics: Cefe and flagyl Advanced diet 09/19/2023: transitioned to PO Flagyl/Augmentin 09/20/2023: Bump in the WBC Added Bactrim p.o. for full coverage ABX Follow-up CBC in a.m. to ensure downtrend of WBC prior to discharge Acute respiratory failure with hypoxia-Resolved Multifocal CHF exacerbation pneumonia 89% POA weaned supplemental oxygen Acute on chronic diastolic heart failure BNP 01206 cardiology consulted IV Lasix b.i.d. monitor renal function during diuresis previous echocardiogram Echo 08/01/23: LVEF 60-65% and grade I diastolic dysfunction echocardiogram pending EKG: SR BBB chest x-ray: mall left pleural effusion with associated atelectasis and/or pneumonia in the left lower lung zone. CT chest moderate to large left pleural effusion with near complete left lower lobe atelectasis Daily weight. Monitor serum electrolytes, Keep serum Potassium>4 and serum Magnesium>2 and CBC Pneumonia HAP Chest XR 09/10: Small left pleural effusion with associated atelectasis and/or pneumonia in the left lower lung zone. CT chest moderate to large left pleural effusion with keke
[2023-09-22 14:00] VITALS: BP 179/80; PULSE 72; RESP 20; TEMP 35.7; O2SAT 96
[2023-10-04 20:19] LABS: Amylase, Pleural Fluid 18 U/L; Glucose Pleural Fluid 62 mg/dL; Total Protein Pleural Fluid <3.0 g/dL
== END 2023-09-22 15:25 | disposition home health service (06) | DRG 193 ==
LOC: ANHED 10:05 → ANH3MEDSUR 10:35
PROVIDERS: Student in an Organized Health Care Education/Training Program; Admitting Provider General Practice; Emergency Provider Emergency Medicine; PCP Internal Medicine; Visit Provider Nurse Practitioner Family
DX: J18.9 Pneumonia, unspecified organism (principal); I50.33 Acute on chronic diastolic (congestive) heart failure; J96.01 Acute respiratory failure with hypoxia; I13.0 Hypertensive heart and chronic kidney disease with heart failure and stage 1 through stage 4 chronic kidney disease, or unspecified chronic kidney disease; J90 Pleural effusion, not elsewhere classified; K81.0 Acute cholecystitis; N17.9 Acute kidney failure, unspecified; I69.354 Hemiplegia and hemiparesis following cerebral infarction affecting left non-dominant side; I25.10 Atherosclerotic heart disease of native coronary artery without angina pectoris; N18.32 Chronic kidney disease, stage 3b; E11.51 Type 2 diabetes mellitus with diabetic peripheral angiopathy without gangrene; E11.42 Type 2 diabetes mellitus with diabetic polyneuropathy; E11.22 Type 2 diabetes mellitus with diabetic chronic kidney disease; K21.9 Gastro-esophageal reflux disease without esophagitis; K59.00 Constipation, unspecified; I48.0 Paroxysmal atrial fibrillation; F01.50 Vascular dementia, unspecified severity, without behavioral disturbance, psychotic disturbance, mood disturbance, and anxiety; F31.9 Bipolar disorder, unspecified; Y95 Nosocomial condition; Z20.822 Contact with and (suspected) exposure to COVID-19; I25.2 Old myocardial infarction; I69.322 Dysarthria following cerebral infarction; I69.321 Dysphasia following cerebral infarction; Z79.01 Long term (current) use of anticoagulants; Z79.82 Long term (current) use of aspirin; Z95.1 Presence of aortocoronary bypass graft; Z95.5 Presence of coronary angioplasty implant and graft; Z95.820 Peripheral vascular angioplasty status with implants and grafts; Z74.01 Bed confinement status
CPT/HCPCS: 32555; 36415; 47490; 71045; 71046; 71250; 74018; 74176; 76705; 78227; 80053; 81001; 82040; 82042; 82150; 82247; 82465; 82565; 82945; 82947; 82948; 83036; 83605; 83615; 83690; 83735; 83880; 83986; 84145; 84155; 84157; 84311; 84478; 84484; 85025; 85027; 85610; 85730; 87015; 87040; 87070; 87075; 87116; 87205; 87206; 87637; 87641; 88108; 88305; 89051; 93005; 94640; 96374; 96375; 96376; 97110; 97161; 97166; 97530; 97535; 99285; A9270; A9537; C1729; G0378; J0360; J0692; J0696; J1644; J1815; J1836; J1940; J2270; J2405; J3370

== ENCOUNTER 2023-10-07 10:27 | Inpatient (IN) | payer MEDICARE, SELFPAY ==
[2023-10-07] VITALS (13 sets, daily range): BP systolic 111–176; BP diastolic 62–95; PULSE 60–70; RESP 16–18; TEMP 36.4–36.9; O2SAT 94–100; BMI 29.9
--- NOTE | ~2023-10-07 | US_ITS ---
COMPLETE ABDOMINAL ULTRASOUND Ordering provider: Jolly Mullen PA-C History: . cholecystitis s/p cholecystostomy . Comparison: None. FINDINGS: LIVER: Normal size and echotexture. No focal hepatic lesions or perihepatic fluid collections are chuy ntified. Portal vein flow is normal. GALLBLADDER: Not visualized. BILIARY DUCTS: No evidence for intra or extrahepatic biliary dilation. Common bile duct measures 4.4 mm in diameter which is within normal limits. PANCREAS: Not visualized. IMPRESSION: 1. Nonvisualization of the gallbladder and pancreas. Otherwise, Unremarkable limited ultrasound of the abdomen. Reviewed, dictated and finalized at location A.
--- NOTE | ~2023-10-07 | CT_ITS ---
CT brain wo con Ordering provider: London Mendez MD History: 63 years Male with . AMS . Comparison: None. Technique: CT of the head without contrast. Radiation reduction technique utilized. DLP is 681.00mGy-cm. FINDINGS: BRAIN PARENCHYMA AND CSF SPACES: Mild leukoaraiosis and diffuse cortical atrophy. Mild atheromatous d isease. Lacunar infarcts in the right centrum semiovale. No midline shift, mass effect or hemorrhage. The brain parenchyma and CSF spaces are otherwise normal. VISUALIZED PARANASAL SINUSES: Well aerated. MASTOIDS: Well aerated. BONES: The bones appear intact. SOFT TISSUES: Visualized nasopharynx is normal. Superficial soft tissues are normal. IMPRESSION: No acute intracranial findings. Reviewed, dictated and finalized at location A.
--- NOTE | ~2023-10-07 | US_ITS ---
EXAMINATION: US carotid duplex BI DATE: 10/10/2023 20:20 INDICATION: Cerebrovascular disease with chronic infarcts and encephalopathy. TECHNIQUE: Grayscale, color Doppler, and pulsed Doppler images of the cervical carotid arteries were obtained. The degree of vessel stenosis is placed in one of the following categories: normal, <50%, 5 0-69%, >=70% but less than near-occlusion, near-occlusion, or total occlusion. Note that percent sten osis relative to normal distal artery lumen diameter is indirectly measured from velocity measurement s as described by Jose, et al. Radiology 2003; 229:340-346. COMPARISON: None. FINDINGS: RIGHT: The right common carotid artery (CCA) peak systolic velocity (PSV) is 71 cm/s. The right internal car otid artery (ICA) PSV is 129 cm/s. The right ICA end-diastolic velocity (EDV) is 19 cm/s. The right I CA/CCA PSV ratio is 1.8. Grayscale and color Doppler images yield an estimate of 50-69% diameter redu ction from plaque in the ICA. The external carotid artery (ECA) PSV is 225 cm/s. There is antegrade f low in the right vertebral artery. LEFT: The left CCA PSV is 109 cm/s. The left ICA PSV is 108 cm/s. The left ICA EDV is 27 cm/s. The left ICA /CCA PSV ratio is 1.0. Grayscale and color Doppler images yield an estimate of <50% diameter reductio n from plaque in the ICA. The ECA PSV is 228 cm/s. There is antegrade flow in the left vertebral kameron ry. IMPRESSION: 1. 50-69% stenosis in the right internal carotid artery. 2. <50% stenosis in the left internal carotid artery. Reviewed, dictated and finalized at location A.
--- NOTE | ~2023-10-07 | XR_ITS ---
EXAMINATION: XR chest 1V portable Exam Date/Time: 10/10/2023 16:30 CDT HISTORY: Increasing oxygen demands, coarse lungs Comparison: 09/21/2023. RESULT: Lines, tubes, and devices: Pigtail drainage tube over the right upper quadrant. Intact sternotomy wi res. Mediastinal surgical clips. Lungs and pleura: Linear opacity in the right midlung. Mild streaky left basilar opacities. Mild lef t costophrenic angle blunting. Cardiomediastinal silhouette: Stable. Other: No acute osseous or upper abdominal finding. IMPRESSION: Presumed discoid atelectasis in the right midlung. Streaky left basilar atelectasis/scar. Small left pleural effusion. Infection is not excluded. Reviewed, dictated and finalized at location K. IMPRESSION: Presumed discoid atelectasis in the right midlung. Streaky left basilar atelect asis/scar. Small left pleural effusion. Infection is not excluded.
--- NOTE | ~2023-10-07 | MR_ITS ---
MR brain/brain stem wo/w con Ordering provider: Jolly Mullen PA-C History: 63 years Male with . right-sided muscle twitching, hallucinations . Comparison: CT head performed yesterday. Technique: MRI brain was performed with and without contrast. 17 mL MultiHance was given IV. FINDINGS: BONES: Normal. CRANIOCERVICAL JUNCTION: normal. PITUITARY: Normal. MAJOR INTRACRANIAL VESSELS: Normal flow void. OPTIC NERVES AND CRANIAL NERVES VII AND VIII COMPLEXES: Grossly normal. BRAIN PARENCHYMA AND CSF SPACES: No visible white matter disease. Old lacunar infarct in the right centrum semiovale. Old lacunar infarct in the right side of the jamie. The brainstem and cerebellum a re normal. No acute or chronic intracranial hemorrhage. No extra axial fluid collections. Diffusion w eighted and ADC mapping images reveal no recent ischemia. No midline shift or mass effect. No abnorma l contrast enhancement. PARANASAL SINUSES: Normal. MASTOIDS: Normal SUPERFICIAL/SURROUNDING SOFT TISSUES: Normal. IMPRESSION: 1. No acute intracranial process. 2. No abnormal enhancement. 3. Old lacunar infarcts in the right cam radiata and centrum semiovale. Old lacunar infarcts in t he jamie. Reviewed, dictated and finalized at location A. IMPRESSION: 1. No acute intracranial process. 2. No abnormal enhancement. 3. Old lacunar infarcts in the right cam radiata and centrum semiovale. Old lacunar infarcts in the jamie.
--- NOTE | 2023-10-07 10:46 | PC.NURSE ---
1033 charting by this RN was documented on wrong pt.
[2023-10-07 11:00] LABS: Basophils Absolute Auto 0.1 K/mm3 (0.0-0.1); Eosinophils Absolute Auto 0.7 K/mm3 (0-0.3); Eosinophils Percent Auto 9.5 % (0-4.4); Hematocrit 35.2 % (42.0-52.0); Immature Granulocyte Absolute 0.02 K/mm3 (0.00-0.031); Immature Granulocyte Percent A 0.3 % (0-0.5); Lymphocytes Absolute Auto 2.03 K/mm3 (0.9-3.2); Lymphocytes Percent Auto 28.4 % (18.3-44.2); Mean Corpuscular HGB Conc 31.3 g/dl (32-36); Mean Corpuscular Hemoglobin 27.6 pg (26-34); Mean Corpuscular Volume 88.4 fl (80-100); Mean Platelet Volume 11.2 fl (7.4-10.4); Monocytes Absolute Auto 0.6 K/mm3 (0.1-0.6); Monocytes Percent Auto 8.9 % (2.6-8.5); Neutrophils Absolute Auto 3.7 K/mm3 (1.3-6.7); Neutrophils Percent Auto 50.9 % (45.5-73.1); Platelet Count Result 343 k/mm3 (150-375); Red Blood Count 3.98 M/mm3 (4.6-6.20); Red Cell Distribution Width 15.4 % (11.5-14.5); White Blood Count 7.2 K/mm3 (4.5-10.0)
[2023-10-07 11:11] LABS: Ethanol < 10 mg/dL (<10)
[2023-10-07 11:12] LABS: Alanine Aminotransferase 9 U/L (6-50); Albumin Level 3.2 g/dL (3.5-5.1); Alkaline Phosphatase 88 U/L (38-126); Anion Gap 6 mmol/L (4-12); Aspartate Amino Transferase 18 U/L (17-59); Bilirubin,Total 0.4 mg/dL (0.2-1.3); Blood Urea Nitrogen 19 mg/dL (9-20); Calcium 8.7 mg/dL (8.4-10.2); Carbon Dioxide 28 mmol/L (22-30); Chloride 104 mmol/L (98-107); Estimated CRCL calculation 50 ml/min; Estimated Glomerular Filt Rate 51; Glucose 81 mg/dL (65-110); Potassium 4.6 mmol/L (3.4-5.0); Sodium 138 mmol/L (137-145)
[2023-10-07 11:33] LABS: Alveolar/Arterial O2 Gradient 37.4 mmHg; Base Excess ABG 2.6 mEq/l (+/-2.0); Carboxyhemoglobin 0.6 % THb (0-2.0); Fractional Inspired Oxygen 21 %; HCO3 ABG 27.9 mEq/l (22.0-26.0); Methemoglobin ABG 0.2 %THb (0-1.5); Oxygen Content ABG 13.6 %vol (16.0-22.0); Oxygen Saturation ABG 89.5 % (95.0-100.0); PCO2 ABG 46.1 mmHg (35.0-45.0); PO2 ABG 57.1 mmHg (80.0-100.0); PO2 FiO2 Ratio Arterial Blood 2.72 %; Reduced Hemoglobin 11.7 %THb (0-5.0); pH ABG 7.399 (7.350-7.450)
[2023-10-07 11:36] LABS: Device ROOM AIR; Modified Allen's Test Pass; Oxyhemoglobin 87.5 % THb (90.0-100.0); Site Drawn RIGHT RADIAL
[2023-10-07 11:36] LABS: Influenza A QL RT-PCR Negative (Negative); Influenza B QL RT-PCR Negative (Negative); RSV RNA, RT-PCR Negative (Negative); SARS-CoV-2 RNA PCR Negative (Negative)
[2023-10-07 11:59] LABS: Lipase 104 U/L (23-300)
[2023-10-07 12:29] LABS: Appearance Urine Clear (Clear); Bacteria Urine None Seen /hpf; Bilirubin Urine Negative (Negative); Blood Urine Negative (Negative); Color Urine Yellow (Yellow); Glucose Urine UA Trace mg/dL (Negative); Ketones Urine Negative (Negative); Leukocyte Esterase Ur Negative LEU/UL (Negative); Nitrate Urine Negative (Negative); Protein Urine 3+ mg/dL (Negative); RBC Urine 0-2 /hpf (0-2); Squamous Epithelial Cell Urine None Seen /hpf (Few); Urobilinogen Urine 0.2 mg/dL (<2.0); WBC Urine 0-5 /hpf (0-3); pH Urine 6.5 (5.0-9.0)
[2023-10-07 12:32] LABS: Amphetamine Screen Urine Negative (Negative); Barbiturate Screen Urine Negative (Negative); Benzodiazepines Screen Urine Negative (Negative); Cannabinoid Screen Urine Negative (Negative); Cocaine Screen Urine Negative (Negative); Methadone Screen Urine Negative (Negative); Opiate Screen Urine Negative (Negative); Phencyclidine Screen Urine Negative (Negative)
[2023-10-07 12:34] LABS: Add Urine Microscopic? YES
--- NOTE | 2023-10-07 12:39 | ECG_ITS ---
Test Date: 2023-10-07 12:39:38 Measurements Intervals [place] Rate: 62 P: -37 MI: 128 QRS: -10 QRSD: 151 T: 11 QT: 455 QTc: 462 Interpretive Statements SINUS RHYTHM RIGHT BUNDLE BRANCH BLOCK BASELINE ARTIFACT- I, II, III, AVR, AVL, AVF, V1, V3-V4 ABNORMAL ECG Compared to ECG 09/18/2023 13:51:24 No significant changes Electronically Signed On 10-08-2023 15:15:19 CDT by Silas Souza D.O.
--- NOTE | 2023-10-07 12:45 | ED_ITS ---
HPI - Altered Mental Status General Chief Complaint: Altered Mental Status Stated Complaint: hallucinating Time Seen by Provider: 10/07/23 10:37 History of Present Illness HPI narrative: Patient is a 63-year-old male who presents ER with concerns for hallucinations. Apparently over last 24 hours he has been seeing people and little girls to tell him that he needs to join a group that is going to kill people. No specific person is being targeted. He is not suicidal. Denies history of schizophrenia. Reports he had depression at 1 point in the past. Has not started any new medications. He recently had a cholecystostomy tube placed. He is not been having fevers or chills. He has not had any change in his drainage. He has no abdominal pain. Related Data Home Medications Medication Instructions Recorded Confirmed omeprazole 20 mg capsule,delayed 20 mg PO DAILY 03/04/19 10/07/23 release paroxetine HCl 20 mg tablet 40 mg PO DAILY 03/04/19 10/07/23 ramipril 10 mg capsule 10 mg PO DAILY 03/04/19 10/07/23 glipizide 5 mg tablet 10 mg PO BID 09/14/22 10/07/23 omega 0-dwg-vgo-fish oil 60 mg-90 1 cap PO DAILY 03/24/23 10/07/23 mg-500 mg capsule (Fish Oil) aspirin 325 mg capsule 325 mg PO DAILY 07/30/23 10/07/23 clopidogrel 75 mg tablet 75 mg PO DAILY 07/30/23 10/07/23 insulin lispro 100 unit/mL 1 sliding scale dose subcut 09/11/23 10/07/23 subcutaneous pen USEASDIRECTD melatonin 3 mg tablet 10 mg PO HS 09/11/23 10/07/23 albuterol sulfate 90 mcg/actuation 2 puff inhalation PRN PRN 10/07/23 10/07/23 aerosol inhaler shortness of breath or wheezing Allergies Allergy/AdvReac Type Severity Reaction Status Date / Time No Known Allergies Allergy Verified 01/25/23 13:36 Review of Systems Review of Systems: All systems reviewed & are unremarkable except as noted in HPI and below Constitutional: Constitutional: Reports no additional constitutional complaints Cardiovascular: Cardiovascular: Reports no additional cardiovascular complaints Respiratory: Respiratory: Reports no additional respiratory complaints Gastrointestinal: Gastrointestinal: Reports no additional gastrointestinal complaints Psychiatric: Psychiatric: Denies anxiety, Denies depression, Denies homicidal ideation and Denies suicidal ideation Comments: + visual hallucinations PMFSH Past Medical History Medical History Anemia Bipolar disease, chronic Cerebrovascular accident Multiple strokes with residual left-sided weakness, dysarthria, and dysphagia. Chronic kidney disease, stage 3 Coronary artery disease Diabetic peripheral neuropathy Gastroesophageal reflux disease Heart failure with preserved ejection fraction Hypertension Insulin dependent type 2 diabetes mellitus Mitral valve disease Myocardial infarction Paroxysmal atrial fibrillation Peripheral artery disease Vascular dementia Surgical History Surgical History History of cardiac catheterization History of coronary artery bypass graft x 3 (11/2001) History of coronary artery stent placement (2018) History of vascular surgery (2012) Bilateral lower extremity stents two stents. Family History Family History Mother Acute myocardial infarction Cerebrovascular accident Diabetes mellitus Hypertension Sibling Acute myocardial infarction AIDS Sibling AIDS Social History Social History Social History: Surrogate medical decision maker: Maite Rendon, spouse. Code status: Smoking status: Never smoker Second hand tobacco smoke exposure: No Alcohol intake: former Substance use: never Substance use type: does not use Do You Feel Safe in your Home?: Yes Lack of Transportation: No Lack of Food: Never True Current Housing: I Do Not Have Housing Concerned About Future Housing: No Difficulty Paying Gas/Electric Bills: No Difficulty Paying for Meds: No Currently Unemployed: No Education: High School Diploma/GED Difficulty w/ Childcare or Family Care: No Additional living arrangements comments: Lives with spouse. Spiritual care concerns: No Agree to blood products: Yes Exam Narrative: GENERAL: Chronically ill-appearing, obese, and in no acute distress. HEAD: Normocephalic, atraumatic. ENT: Mucous membranes moist. NECK: Supple. CHEST: Clear to auscultation. No respiratory distress. HEART: Regular rate and rhythm. Normal peripheral pulses. ABDOMEN: Soft, nontender, nondistended, cholecystostomy tube right upper quadrant. EXTREMITIES: Normal range of motion. +2 edema. SKIN: Warm, dry, no rash. NEURO: Alert and oriented x3. PSYCH: Reports visual hallucinations, no SI or HI. Course Course Emergency Course: Will admit to the hospitalist service for delirium. If no additional causes of his hallucinations are found it may be primarily psychiatric however he would not be able to go to facility with his cholecystostomy tube in place so that will also be evaluated by General surgery. Vital Signs Vital signs: Vital Signs Temperature 98.4 F 10/07/23 10:26 Pulse Rate 60 10/07/23 10:26 Respiratory Rate 16 10/07/23 10:26 Blood Pressure 143/76 H 10/07/23 10:26 Pulse Oximetry 95 10/07/23 10:26 Oxygen Delivery Room Air 10/07/23 10:26 Temperature 98.3 F 10/07/23 15:40 Pulse Rate 68 10/07/23 16:00 Respiratory Rate 16 10/07/23 15:40 Blood Pressure 165/72 H 10/07/23 15:40 Pulse Oximetry 100 10/07/23 15:40 Oxygen Delivery Nasal Cannula 10/07/23 15:17 Oxygen Flow Rate 2 10/07/23 15:17 MDM - Altered Mental Status Lab Data 10/07/23 10:55 10/07/23 10:55 Labs: Lab Results 10/07/23 10/07/23 10/07/23 Range/Units 10:52 10:55 11:25 WBC 7.2 (4.5-10.0) K/mm3 RBC 3.98 L (4.6-6.20) M/mm3 Hgb 11.0 L (14.0-18.0) g/dL Hct 35.2 L (42.0-52.0) % MCV 88.4 (80-100) fl MCH 27.6 (26-34) pg MCHC 31.3 L (32-36) g/dl RDW 15.4 H (11.5-14.5) % Plt Count 343 (150-375) k/mm3 MPV 11.2 H (7.4-10.4) fl Immature Gran % (Auto) 0.3 (0-0.5) % Neut % (Auto) 50.9 (45.5-73.1) % Lymph % (Auto) 28.4 (18.3-44.2) % [place] % (Auto) 8.9 H (2.6-8.5) % Eos % (Auto) 9.5 H (0-4.4) % Baso % (Auto) 2.0 H (0.2-1.2) % Lymph # (Auto) 2.03 (0.9-3.2) K/mm3 [place] # (Auto) 0.6 (0.1-0.6) K/mm3 Eos # (Auto) 0.7 H (0-0.3) K/mm3 Baso # (Auto) 0.1 (0.0-0.1) K/mm3 Abs Immat Gran (auto) 0.02 (0.00-0.031) K/mm3 Absolute Neuts (auto) 3.7 (1.3-6.7) K/mm3 Absolute Nucleated RBC 0.000 (0.0-0.012) K/mm3 Nucleated RBC % 0.0 (0.0-0.2) % Methemoglobin 0.2 (0-1.5) %THb Sodium 138 (137-145) mmol/L Potassium 4.6 (3.4-5.0) mmol/L Chloride 104 (98-107) mmol/L Carbon Dioxide 28 (22-30) mmol/L Anion Gap 6 (4-12) mmol/L BUN 19 D (9-20) mg/dL Creatinine 1.40 H (0.7-1.3) mg/dL Estim Creat Clear Calc 50 ml/min Estimated GFR 51 L (59 - ) Glucose 81 (65-110) mg/dL Calcium 8.7 (8.4-10.2) mg/dL Total Bilirubin 0.4 (0.2-1.3) mg/dL AST 18 (17-59) U/L ALT 9 (6-50) U/L Alkaline Phosphatase 88 (38-126) U/L Total Protein 7.0 (6.3-8.2) g/dL Albumin 3.2 L (3.5-5.1) g/dL Lipase 104 (23-300) U/L TSH (Reflex) 3.660 (0.465-4.68) uIU/mL Urine Color (Yellow) Urine Appearance (Clear) Urine pH (5.0-9.0) Ur Specific [place] (1.001-1.035) Urine Protein (Negative) mg/dL Urine Glucose (UA) (Negative) mg/dL Urine Ketones (Negative) mg/dL Ur Blood (Man) (Negative) Urine Nitrate (Negative) Urine Bilirubin (Negative) Urine Urobilinogen (<2.0) mg/dL Leukocyte Esterase Rfl (Negative) JAMIR/UL Urine RBC (0-2) /hpf Urine WBC (0-3) /hpf Ur Squamous Epith Cells (Few) /hpf Urine Bacteria /hpf Urine Casts Urine Opiates Screen (Negative) Urine Methadone Screen (Negative) Ur Barbiturates Screen (Negative) Ur Phencyclidine Scrn (Negative) Ur Amphetamine Screen (Negative) U Benzodiazepines Scrn (Negative) Urine Cocaine Screen (Negative) U Cannabinoids Screen (Negative) Ethyl Alcohol < 10 (<10) mg/dL Influenza A (RT-PCR) Negative (Negative) Influenza B (RT-PCR) Negative (Negative) RSV (RT-PCR) Negative (Negative) SARS-CoV-2 RNA (RT-PCR) Negative (Negative) 10/07/23 Range/Units 12:10 WBC (4.5-10.0) K/mm3 RBC (4.6-6.20) M/mm3 Hgb (14.0-18.0) g/dL Hct (42.0-52.0) % MCV (80-100) fl MCH (26-34) pg MCHC (32-36) g/dl RDW (11.5-14.5) % Plt Count (150-375) k/mm3 MPV (7.4-10.4) fl Immature Gran % (Auto) (0-0.5) % Neut % (Auto) (45.5-73.1) % Lymph % (Auto) (18.3-44.2) % [place] % (Auto) (2.6-8.5) % Eos % (Auto) (0-4.4) % Baso % (Auto) (0.2-1.2) % Lymph # (Auto) (0.9-3.2) K/mm3 [place] # (Auto) (0.1-0.6) K/mm3 Eos # (Auto) (0-0.3) K/mm3 Baso # (Auto) (0.0-0.1) K/mm3 Abs Immat Gran (auto) (0.00-0.031) K/mm3 Absolute Neuts (auto) (1.3-6.7) K/mm3 Absolute Nucleated RBC (0.0-0.012) K/mm3 Nucleated RBC % (0.0-0.2) % Methemoglobin (0-1.5) %THb Sodium (137-145) mmol/L Potassium (3.4-5.0) mmol/L Chloride (98-107) mmol/L Carbon Dioxide (22-30) mmol/L Anion Gap (4-12) mmol/L BUN (9-20) mg/dL Creatinine (0.7-1.3) mg/dL Estim Creat Clear Calc ml/min Estimated GFR (59 - ) Glucose (65-110) mg/dL Calcium (8.4-10.2) mg/dL Total Bilirubin (0.2-1.3) mg/dL AST (17-59) U/L ALT (6-50) U/L Alkaline Phosphatase (38-126) U/L Total Protein (6.3-8.2) g/dL Albumin (3.5-5.1) g/dL Lipase (23-300) U/L TSH (Reflex) (0.465-4.68) uIU/mL Urine Color Yellow (Yellow) Urine Appearance Clear (Clear) Urine pH 6.5 (5.0-9.0) Ur Specific [place] 1.010 (1.001-1.035) Urine Protein 3+ H (Negative) mg/dL Urine Glucose (UA) Trace H (Negative) mg/dL Urine Ketones Negative (Negative) mg/dL Ur Blood (Man) Negative (Negative) Urine Nitrate Negative (Negative) Urine Bilirubin Negative (Negative) Urine Urobilinogen 0.2 (<2.0) mg/dL Leukocyte Esterase Rfl Negative (Negative) JAMIR/UL Urine RBC 0-2 (0-2) /hpf Urine WBC 0-5 (0-3) /hpf Ur Squamous Epith Cells None seen (Few) /hpf Urine Bacteria None seen /hpf Urine Casts 3-5 Urine Opiates Screen Negative (Negative) Urine Methadone Screen Negative (Negative) Ur Barbiturates Screen Negative (Negative) Ur Phencyclidine Scrn Negative (Negative) Ur Amphetamine Screen Negative (Negative) U Benzodiazepines Scrn Negative (Negative) Urine Cocaine Screen Negative (Negative) U Cannabinoids Screen Negative (Negative) Ethyl Alcohol (<10) mg/dL Influenza A (RT-PCR) (Negative) Influenza B (RT-PCR) (Negative) RSV (RT-PCR) (Negative) SARS-CoV-2 RNA (RT-PCR) (Negative) ABG Data ABG results: 10/07/23 11:25 Puncture Site Right radial ABG pH 7.399 ABG pCO2 46.1 H ABG pO2 57.1 L ABG PO2/FiO2 Ratio 2.72 ABG HCO3 27.9 H ABG O2 Saturation 89.5 L ABG O2 Content 13.6 L ABG Base Excess 2.6 A-a Gradient 37.4 Oxyhemoglobin 87.5 L* Carboxyhemoglobin 0.6 Reduced Hemoglobin 11.7 H Total Hemoglobin 11.0 L O2 Delivery Device Room air O2 Liters/Min Not Reportable FiO2 21 Imaging Data Radiologist's impression: ITS Impressions Head CT 10/07/23 14:07 IMPRESSION: No acute intracranial findings. Discharge Plan Discharge Clinical Impression: Delirium, Hallucinations, visual Patient Disposition: Still a Patient Condition: Stable
--- NOTE | 2023-10-07 12:48 | PC.NURSE ---
Pt repositioned in bed. noted skin breakdown to coccyx. states she is putting cream on area at home. Pt asking for BB gun, when the water is drained Pt able to state where he is & name, noted involentary movements & twitching to extremities. Dr. Mendez informed
--- NOTE | 2023-10-07 14:20 | PM.IMHP ---
H&P: HPI History of Present Illness Date/Time: 10/07/23 14:20 Chief Complaint: Altered mental status. Narrative: This is a 63-year-old male with history of strokes, vascular dementia, bipolar disorder, coronary artery disease status post 3 vessel coronary artery bypass, heart failure with preserved ejection fraction, paroxysmal atrial fibrillation not on chronic anticoagulation, peripheral arterial disease, hypertension, chronic kidney disease, chronic anemia, and insulin-dependent type 2 diabetes mellitus who presented to the emergency department for evaluation of altered mental status. The patient is able to provide some history however his provides the majority of the following given his confusion. He was admitted to the hospital about 4 weeks ago after presenting with shortness of breath and abdominal pain. He was treated for congestive heart failure, pneumonia, and cholecystitis status post cholecystostomy tube and was discharged home on Augmentin, Bactrim, and Flagyl. He has been doing pretty well in that regard. Over the last couple of days he has become altered. He is having hallucinations (seeing people around him who are apparently talking about killing people) and behavior disturbances such as anger outbursts in which he threw a table (however states that he does have anger outbursts because he is ?spoiled?). He had some hallucinations while in the hospital however those resolved on discharge and returned recently. She has also noticed that he has occasional an unintentional twitching of the right side of his body and she is wondering if he may be having seizures as he apparently had them when he was younger. At the time of my evaluation he has no complaints and denies fever, headache, chest pain, shortness of breath, cough, abdominal pain, nausea, vomiting, diarrhea, and dysuria. He has not had any falls or head trauma. He is not having any hallucinations at this time and is alert and oriented. In the ED: He was afebrile on arrival with stable vital signs. Labs were significant for WBC count of 7.2, hemoglobin 11.0, platelet 343, normal electrolytes, BUN 18, creatinine 1.40, TSH 3.660, and normal LFTs. Urine toxicology screen was negative. Ethyl alcohol level was undetectable. Viral panel was negative. Brain CT showed no acute coronary findings. He is being admitted in this setting for further evaluation. Review of Systems Review of Systems: 12 systems were reviewed and are negative except for as per HPI. [facility] Past Medical History Medical History Anemia Bipolar disease, chronic Cerebrovascular accident Multiple strokes with residual left-sided weakness, dysarthria, and dysphagia. Chronic kidney disease, stage 3 Coronary artery disease Diabetic peripheral neuropathy Gastroesophageal reflux disease Heart failure with preserved ejection fraction Hypertension Insulin dependent type 2 diabetes mellitus Mitral valve disease Myocardial infarction Paroxysmal atrial fibrillation Peripheral artery disease Vascular dementia Surgical History Surgical History History of cardiac catheterization History of coronary artery bypass graft x 3 (11/2001) History of coronary artery stent placement (2018) History of vascular surgery (2012) Bilateral lower extremity stents two stents. Family History Family History Mother Acute myocardial infarction Cerebrovascular accident Diabetes mellitus Hypertension Sibling Acute myocardial infarction AIDS Sibling AIDS Social History Social History Social History: Surrogate medical decision maker: Maite Rendon, spouse. Code status: Smoking status: Never smoker Second hand tobacco smoke exposure: No Alcohol intake: former Substance use: never Substance use type: does not use Do You Feel Safe in your Home?: Yes Lack of Transportation: No Lack of Food: Never True Current Housing: I Do Not Have Housing Concerned About Future Housing: No Difficulty Paying Gas/Electric Bills: No Difficulty Paying for Meds: No Currently Unemployed: No Education: High School Diploma/GED Difficulty w/ Childcare or Family Care: No Additional living arrangements comments: Lives with spouse. Spiritual care concerns: No Agree to blood products: Yes Meds Home Medications and Allergies Home Medications Medication Instructions Recorded Confirmed Type omeprazole 20 mg capsule,delayed 20 mg PO DAILY 03/04/19 10/07/23 History release paroxetine HCl 20 mg tablet 40 mg PO DAILY 03/04/19 10/07/23 History ramipril 10 mg capsule 10 mg PO DAILY 03/04/19 10/07/23 History gabapentin 100 mg capsule 100 mg PO TID #90 caps 07/10/21 10/07/23 Rx glipizide 5 mg tablet 10 mg PO BID 09/14/22 10/07/23 History omega 6-mtv-oqr-fish oil 60 mg-90 1 cap PO DAILY 03/24/23 10/07/23 History mg-500 mg capsule (Fish Oil) aspirin 325 mg capsule 325 mg PO DAILY 07/30/23 10/07/23 History clopidogrel 75 mg tablet 75 mg PO DAILY 07/30/23 10/07/23 History guaifenesin 600 mg tablet, 1,200 mg PO Q12HR #14 tabs 08/03/23 10/07/23 Rx extended release 12 hr (Mucus Relief ER) atorvastatin 80 mg tablet 80 mg PO HS 30 days #30 tabs 08/04/23 10/07/23 Rx insulin lispro 100 unit/mL 1 sliding scale dose subcut 09/11/23 10/07/23 History subcutaneous pen USEASDIRECTD melatonin 3 mg tablet 10 mg PO HS 09/11/23 10/07/23 History carvedilol 25 mg tablet (Coreg) 25 mg PO BIDWM #60 tabs 09/22/23 10/07/23 Rx furosemide 20 mg tablet 20 mg PO DAILY #30 tabs 09/22/23 10/07/23 Rx nifedipine 30 mg tablet,extended 60 mg PO QAM #30 tabs 09/22/23 10/07/23 Rx release 24 hr (Procardia XL) albuterol sulfate 90 mcg/actuation 2 puff inhalation PRN PRN 10/07/23 10/07/23 History aerosol inhaler shortness of breath or wheezing Allergies Allergy/AdvReac Type Severity Reaction Status Date / Time No Known Allergies Allergy Verified 01/25/23 13:36 Vital Signs Vital Signs - 24 hr 10/07/23 10:26 10/07/23 10:35 10/07/23 10:35 Temperature 98.4 F Pulse Rate 60 60 Respiratory Rate 16 Blood Pressure 143/76 H Pulse Oximetry 95 97 Oxygen Delivery Room Air Room Air 10/07/23 12:46 Temperature 97.8 F Pulse Rate 62 Respiratory Rate 16 Blood Pressure 160/62 H Pulse Oximetry 95 Oxygen Delivery Exam Narrative: General:?Chronically ill-appearing male in the semi-Vazquez position in bed. Weight: 84.09 kg. BMI: 29.9. HEENT:??PERRL, EOMI. Sclera anicteric.?Moist mucous membranes. Neck:??Supple. No obvious JVD. Respiratory:?Respirations are nonlabored it is speaking in full sentences. Lungs are clear to auscultation. Cardiovascular:??Regular rate and rhythm with S1-S2. Systolic murmur heard at the left sternal border. Gastrointestinal:??Abdomen is soft, obese, nontender, and nondistended with positive bowel sounds. Cholecystostomy tube in place draining opaque brownish green fluid. No guarding or rebound tenderness. Skin:??Warm and dry. Generalized pallor. Extremities:??No cyanosis, clubbing, or significant edema. Pedal pulses difficult to palpate, feet are warm and perfused however. Neurological:??Alert and oriented.? Cranial nerves 2-12 are grossly intact. Chronic left-sided weakness at baseline. Psychiatric:?Cooperative with appropriate mood and flat affect. H&P: Results Labs Labs: Short CBC 10/07/23 Range/Units 10:55 WBC 7.2 (4.5-10.0) K/mm3 Hgb 11.0 L (14.0-18.0) g/dL Hct 35.2 L (42.0-52.0) % Plt Count 343 (150-375) k/mm3 BMP 10/07/23 10:55 Sodium 138 Potassium 4.6 Chloride 104 Carbon Dioxide 28 BUN 19 D Creatinine 1.40 H Glucose 81 Calcium 8.7 Liver Function 10/07/23 Range/Units 10:55 Total Bilirubin 0.4 (0.2-1.3) mg/dL AST 18 (17-59) U/L ALT 9 (6-50) U/L Alkaline Phosphatase 88 (38-126) U/L Albumin 3.2 L (3.5-5.1) g/dL Urine 10/07/23 Range/Units 12:10 Urine Color Yellow (Yellow) Urine Appearance Clear (Clear) Urine pH 6.5 (5.0-9.0) Ur Specific [place] 1.010 (1.001-1.035) Urine Protein 3+ H (Negative) mg/dL Urine Glucose (UA) Trace H (Negative) mg/dL Impressions Head CT 10/07/23 14:07 IMPRESSION: No acute intracranial findings. ABG ABG results: 10/07/23 11:25 Puncture Site Right radial ABG pH 7.399 ABG pCO2 46.1 H ABG pO2 57.1 L ABG PO2/FiO2 Ratio 2.72 ABG HCO3 27.9 H ABG O2 Saturation 89.5 L ABG O2 Content 13.6 L ABG Base Excess 2.6 A-a Gradient 37.4 Oxyhemoglobin 87.5 L* Carboxyhemoglobin 0.6 Reduced Hemoglobin 11.7 H Total Hemoglobin 11.0 L O2 Delivery Device Room air O2 Liters/Min Not Reportable FiO2 21 Assessment and Plan Assessment and plan (1) Hallucinations, visual: Code(s): R44.1 - Visual hallucinations Status: Acute (2) Muscle twitching: Code(s): R25.3 - Fasciculation Status: Acute (3) Heart failure with preserved ejection fraction: Qualifiers: Heart failure chronicity: acute on chronic Qualified Code(s): I50.33 - Acute on chronic diastolic (congestive) heart failure Code(s): I50.30 - Unspecified diastolic (congestive) heart failure Status: Acute (4) Hypertension: Qualifiers: Hypertension type: unspecified Qualified Code(s): I10 - Essential (primary) hypertension Code(s): I10 - Essential (primary) hypertension Status: Chronic (5) Insulin dependent type 2 diabetes mellitus: Code(s): E11.9 - Type 2 diabetes mellitus without complications; Z79.4 - group home (current) use of insulin Status: Chronic (6) Paroxysmal atrial fibrillation: Code(s): I48.0 - Paroxysmal atrial fibrillation Status: Acute (7) Vascular dementia: Code(s): F01.50 - Vascular dementia, unspecified severity, without behavioral disturbance, psychotic disturbance, mood disturbance, and anxiety Status: Acute (8) Chronic kidney disease, stage 3: Qualifiers: Chronic kidney disease stage 3 subtype: stage 3b (GFR 30-44) Qualified Code(s): N18.32 - Chronic kidney disease, stage 3b Code(s): N18.30 - Chronic kidney disease, stage 3 unspecified Status: Chronic (9) Chronic anemia: Code(s): D64.9 - Anemia, unspecified Status: Acute Plan The patient presented to the emergency department for evaluation of altered mental status for a couple of days with hallucinations and behavior disturbances as detailed in HPI. Labs, imaging, EKG, and all reports were personally reviewed. He is afebrile with normal vital signs and a normal white blood cell count without obvious findings of infection. Brain CT did not show any acute findings and his toxicology screen was negative. He had hallucinations with his recent hospitalizations however they went away and now returned. In part these may be due to his underlying vascular dementia. reports intermittent, uncontrollable right-sided muscle twitching and given his history of seizures when he was younger I suppose that is a consideration as well. EEG has been ordered as well as brain MRI. Neurology consulted. Cerebrovascular accident seems less likely but remains a consideration. Continue neurologic checks q.4 hours. Anemia and renal function are stable on review of previous labs. Hold glipizide due to lower glucoses today. Initiate sliding scale insulin, Accu-Cheks, and hypoglycemic protocol. His home medications will be reviewed and resumed as appropriate. Findings and treatment plan were discussed with the patient and his spouse. Questions were solicited and answered to satisfaction. The patient's medical management will be taken over by the hospitalist team in a.m. Quality VTE Prophylaxis VTE prophylaxis: mechanical ordered If No VTE Prophylaxis Answer both mechanical and pharmacologic: Reason no pharmacologic proph: medical contraindication (Patient on dual anti-platelet therapy, pharmacologic prophylaxis would put him at increased risk for bleeding.) The patient has been admitted under observation status. Hospitalist [facility] [place] Advance Care Plan I have confirmed that the patient's Advanced Care Plan is present, code status is documented, or surrogate decision maker is listed in patient medical record.: Yes Medication Reconciliation I have utilized all available resources to obtain, update and review the patients current medications (includes all prescriptions, OTC, herbals, cannabis, and nutritional supplements).: Yes
--- NOTE | 2023-10-07 14:44 | PC.NURSE ---
Drain remains intact to right upper abd, collection bag secured to pt gown with x2 safety pins.
--- NOTE | 2023-10-07 14:52 | PM.CNGS ---
Assessment and Plan Assessment and plan (1) Altered mental status: Code(s): R41.82 - Altered mental status, unspecified Status: Acute Assessment and Plan: the patient with multiple medical issues including history of bipolar disease, apparently has not been taking his medications, the patient will be admitted to the medical service to workup organic causes of his mental status change, given his normal white count and completely benign abdominal exam with doubt that this is from his previous episode of cholecystitis (2) Cholecystitis: Code(s): K81.9 - Cholecystitis, unspecified Status: Acute Assessment and Plan: exam benign, percutaneous cholecystostomy tube draining well History of Present Illness Consult details Consult date: 10/07/23 Reason for consult: other ( Cholecystitis) Requesting physician: London Mendez MD Narrative: The patient is a 63-year-old male with multiple medical issues presenting to the emergency department with mental status change, hallucinations. According to the chart and the patient's , the patient has been experiencing hallucinations with anger outburst over the last 2-3 days. The patient is known to our service for previous management acute cholecystitis with percutaneous cholecystostomy tube. Of note, the patient currently denies any abdominal pain, nausea, bloating. The patient was tolerating a diet without issue. Review of Systems Review of Systems: ROS unobtainable: Yes unobtainable due to mental status PMFSH Past Medical History Medical History Anemia Bipolar disease, chronic Cerebrovascular accident Multiple strokes with residual left-sided weakness, dysarthria, and dysphagia. Chronic kidney disease, stage 3 Coronary artery disease Diabetic peripheral neuropathy Gastroesophageal reflux disease Heart failure with preserved ejection fraction Hypertension Insulin dependent type 2 diabetes mellitus Mitral valve disease Myocardial infarction Paroxysmal atrial fibrillation Peripheral artery disease Vascular dementia Surgical History Surgical History History of cardiac catheterization History of coronary artery bypass graft x 3 (11/2001) History of coronary artery stent placement (2018) History of vascular surgery (2012) Bilateral lower extremity stents two stents. Family History Family History Mother Acute myocardial infarction Cerebrovascular accident Diabetes mellitus Hypertension Sibling Acute myocardial infarction AIDS Sibling AIDS Social History Social History Social History: Surrogate medical decision maker: Maite Rendon, spouse. Code status: Smoking status: Never smoker Second hand tobacco smoke exposure: No Alcohol intake: former Substance use: never Substance use type: does not use Do You Feel Safe in your Home?: Yes Lack of Transportation: YES Lack of Food: Never True Current Housing: I Have Housing Concerned About Future Housing: No Difficulty Paying Gas/Electric Bills: No Difficulty Paying for Meds: YES Currently Unemployed: No Education: High School Diploma/GED Difficulty w/ Childcare or Family Care: No Additional living arrangements comments: Lives with spouse. Spiritual care concerns: No Agree to blood products: Yes Meds Home Medications and Allergies Home Medications Medication Instructions Recorded Confirmed Type omeprazole 20 mg capsule,delayed 20 mg PO DAILY 03/04/19 09/11/23 History release paroxetine HCl 20 mg tablet 40 mg PO DAILY 03/04/19 09/11/23 History ramipril 10 mg capsule 10 mg PO DAILY 03/04/19 09/11/23 History gabapentin 100 mg capsule 100 mg PO TID #90 caps 07/10/21 09/11/23 Rx glipizide 5 mg tablet 10 mg PO BID 09/14/22 09/11/23 History omega 7-smk-fwb-fish oil 60 mg-90 1 cap PO DAILY 03/24/23 09/11/23 History mg-500 mg capsule (Fish Oil) insulin degludec 100 unit/mL (3 20 unit subcut HS 03/31/23 09/11/23 History mL) subcutaneous pen (Tresiba FlexTouch U-100 insulin) aspirin 325 mg capsule 325 mg PO DAILY 07/30/23 09/11/23 History clopidogrel 75 mg tablet 75 mg PO DAILY 07/30/23 09/11/23 History albuterol sulfate 90 mcg/actuation 2 puff inhalation QID PRN 08/03/23 09/11/23 Rx aerosol inhaler shortness of breath or wheezing #6.7 grams guaifenesin 600 mg tablet, 1,200 mg PO Q12HR #14 tabs 08/03/23 09/11/23 Rx extended release 12 hr (Mucus Relief ER) atorvastatin 80 mg tablet 80 mg PO HS 30 days #30 tabs 08/04/23 09/11/23 Rx insulin lispro 100 unit/mL 1 sliding scale dose subcut 09/11/23 09/11/23 History subcutaneous pen USEASDIRECTD melatonin 3 mg tablet 10 mg PO HS 09/11/23 09/11/23 History amoxicillin 875 mg-potassium 1 tablet PO Q12H #14 tabs 09/22/23 Rx clavulanate 125 mg tablet carvedilol 25 mg tablet (Coreg) 25 mg PO BIDWM #60 tabs 09/22/23 Rx furosemide 20 mg tablet 20 mg PO DAILY #30 tabs 09/22/23 Rx metronidazole 500 mg tablet 500 mg PO Q8H #21 tabs 09/22/23 Rx nifedipine 30 mg tablet,extended 60 mg PO QAM #30 tabs 09/22/23 Rx release 24 hr (Procardia XL) sulfamethoxazole 400 1 tablet PO HS #7 tabs 09/22/23 Rx mg-trimethoprim 80 mg tablet Allergies Allergy/AdvReac Type Severity Reaction Status Date / Time No Known Allergies Allergy Verified 01/25/23 13:36 Vital Signs Vital Signs - 24 hr 10/07/23 10:26 10/07/23 10:35 10/07/23 10:35 Temperature 36.9 C Pulse Rate 60 60 Respiratory Rate 16 Blood Pressure 143/76 H Pulse Oximetry 95 97 Oxygen Delivery Room Air Room Air 10/07/23 12:46 10/07/23 13:30 10/07/23 14:00 Temperature 36.6 C 36.4 C Pulse Rate 62 64 65 Respiratory Rate 16 18 18 Blood Pressure 160/62 H 111/95 H 175/72 H Pulse Oximetry 95 94 94 Oxygen Delivery 10/07/23 14:41 Temperature Pulse Rate 66 Respiratory Rate 18 Blood Pressure 174/78 H Pulse Oximetry 94 Oxygen Delivery Exam Const: General: cooperative, no acute distress, confusion, ill appearing, tired appearing and overweight HENMT: Head: normal to inspection, normocephalic and atraumatic Eyes: General: appearance normal, both eyes and all related structures Neck: Neck: normal visual inspection, full ROM and no lymphadenopathy Resp: Auscultation: diminished lung sounds Cardio: Rate: regular rate Rhythm: regular rhythm GI: Inspection: normal to inspection and non-distended GI Palp: No abdominal tenderness, Yes Soft to palpation, No Tenderness to palpation present (GI), No Guarding due to palpation present (GI) and No Rigid due to palpation Other: percutaneous cholecystostomy draining bilious fluid Skin: General skin exam: normal color and no rashes or lesions noted Neuro: General: oriented to person and CN's II-XI intact bilaterally Extrem: General: normal to inspection and full ROM Results Labs 10/07/23 10:55 10/07/23 10:55 Labs: Abnormal lab results 10/07/23 10/07/23 10/07/23 Range/Units 10:55 11:25 12:10 RBC 3.98 L (4.6-6.20) M/mm3 Hgb 11.0 L (14.0-18.0) g/dL Hct 35.2 L (42.0-52.0) % MCHC 31.3 L (32-36) g/dl RDW 15.4 H (11.5-14.5) % MPV 11.2 H (7.4-10.4) fl [place] % (Auto) 8.9 H (2.6-8.5) % Eos % (Auto) 9.5 H (0-4.4) % Baso % (Auto) 2.0 H (0.2-1.2) % Eos # (Auto) 0.7 H (0-0.3) K/mm3 ABG pCO2 46.1 H (35.0-45.0) mmHg ABG pO2 57.1 L (80.0-100.0) mmHg ABG HCO3 27.9 H (22.0-26.0) mEq/l ABG O2 Saturation 89.5 L (95.0-100.0) % ABG O2 Content 13.6 L (16.0-22.0) %vol Oxyhemoglobin 87.5 L* (90.0-100.0) % THb Reduced Hemoglobin 11.7 H (0-5.0) %THb Total Hemoglobin 11.0 L (12.0-18.0) g/dL Creatinine 1.40 H (0.7-1.3) mg/dL Estimated GFR 51 L (59 - ) Albumin 3.2 L (3.5-5.1) g/dL Urine Protein 3+ H (Negative) mg/dL Urine Glucose (UA) Trace H (Negative) mg/dL Diabetes panel 10/07/23 Range/Units 10:55 Sodium 138 (137-145) mmol/L Potassium 4.6 (3.4-5.0) mmol/L Chloride 104 (98-107) mmol/L Carbon Dioxide 28 (22-30) mmol/L BUN 19 D (9-20) mg/dL Creatinine 1.40 H (0.7-1.3) mg/dL Glucose 81 (65-110) mg/dL Calcium 8.7 (8.4-10.2) mg/dL AST 18 (17-59) U/L ALT 9 (6-50) U/L Alkaline Phosphatase 88 (38-126) U/L Total Protein 7.0 (6.3-8.2) g/dL Albumin 3.2 L (3.5-5.1) g/dL Calcium panel 10/07/23 Range/Units 10:55 Calcium 8.7 (8.4-10.2) mg/dL Albumin 3.2 L (3.5-5.1) g/dL Pituitary panel 10/07/23 Range/Units 10:55 Sodium 138 (137-145) mmol/L Potassium 4.6 (3.4-5.0) mmol/L Chloride 104 (98-107) mmol/L Carbon Dioxide 28 (22-30) mmol/L BUN 19 D (9-20) mg/dL Creatinine 1.40 H (0.7-1.3) mg/dL Glucose 81 (65-110) mg/dL Calcium 8.7 (8.4-10.2) mg/dL Adrenal panel 10/07/23 Range/Units 10:55 Sodium 138 (137-145) mmol/L Potassium 4.6 (3.4-5.0) mmol/L Chloride 104 (98-107) mmol/L Carbon Dioxide 28 (22-30) mmol/L BUN 19 D (9-20) mg/dL Creatinine 1.40 H (0.7-1.3) mg/dL Glucose 81 (65-110) mg/dL Calcium 8.7 (8.4-10.2) mg/dL Total Bilirubin 0.4 (0.2-1.3) mg/dL AST 18 (17-59) U/L ALT 9 (6-50) U/L Alkaline Phosphatase 88 (38-126) U/L Total Protein 7.0 (6.3-8.2) g/dL Albumin 3.2 L (3.5-5.1) g/dL All other labs normal. Imaging Additional studies: CT scan had with no acute abnormalities
--- NOTE | 2023-10-07 15:21 | ADMGEN ---
This patient, Robert Rendon, was admitted to 2 Medical Room 240-01. Patient/family oriented to hospital policies and general routines including ID bracelet, bed and alarms, visiting hours, pain management, procedures, bathroom and other care routines, personal items, smoking policy, room service/diet, and visiting hours. Information on how to activate the Rapid Response Team has been discussed. Patient/Family are encouraged to report perceived risks to care and to ask questions if they do not understand what they are told or what they should do.
[2023-10-07 17:38] LABS: Glucose Point of Care 61 mg/dl (65-105)
[2023-10-07 17:53] LABS: Glucose Point of Care 90 mg/dl (65-105)
[2023-10-07 18:57] LABS: Glucose Point of Care 156 mg/dl (65-105)
[2023-10-07] MEDS: GABAPENTIN 100 MG CAPSULE PO (21:06)
[2023-10-07] MEDS: ATORVASTATIN 40 MG TABLET 80 MG PO (21:06)
[2023-10-07] MEDS: MELATONIN 5 MG TABLET 10 MG PO (21:06)
[2023-10-07 21:19] LABS: Glucose Point of Care 169 mg/dl (65-105)
[2023-10-08] VITALS (13 sets, daily range): BP systolic 153–188; BP diastolic 64–86; PULSE 61–78; RESP 16–20; TEMP 36.5–37.1; O2SAT 92–100; BMI 29.9
[2023-10-08] MEDS: GABAPENTIN 100 MG CAPSULE PO ×3 (05:56→19:42)
--- NOTE | 2023-10-08 07:13 | P.PNIM_ITS ---
Progress Note: A&P Assessment and Plan (1) Hallucinations, visual: Code(s): R44.1 - Visual hallucinations Status: Acute (2) Muscle twitching: Code(s): R25.3 - Fasciculation Status: Acute (3) Heart failure with preserved ejection fraction: Qualifiers: Heart failure chronicity: acute on chronic Qualified Code(s): I50.33 - Acute on chronic diastolic (congestive) heart failure Code(s): I50.30 - Unspecified diastolic (congestive) heart failure Status: Acute (4) Hypertension: Qualifiers: Hypertension type: unspecified Qualified Code(s): I10 - Essential (primary) hypertension Code(s): I10 - Essential (primary) hypertension Status: Chronic (5) Insulin dependent type 2 diabetes mellitus: Code(s): E11.9 - Type 2 diabetes mellitus without complications; Z79.4 - 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) use of insulin Status: Chronic (6) Paroxysmal atrial fibrillation: Code(s): I48.0 - Paroxysmal atrial fibrillation Status: Acute (7) Vascular dementia: Code(s): F01.50 - Vascular dementia, unspecified severity, without behavioral disturbance, psychotic disturbance, mood disturbance, and anxiety Status: Acute (8) Chronic anemia: Code(s): D64.9 - Anemia, unspecified Status: Acute (9) Altered mental status: Code(s): R41.82 - Altered mental status, unspecified Status: Acute (10) Acute kidney injury superimposed on CKD: Code(s): N17.9 - Acute kidney failure, unspecified; N18.9 - Chronic kidney disease, unspecified Status: Acute Plan Hallucinations/AMS * Possible multiple causes: Hypoglycemia stopped glipizide * Vascular Dementia * reported he has not slept for a few days * will start Seroquel and increase as needed * PO2 on ABG showed 57.1 on 1 L NC * ammonia level pending * UA negative * CXR with no acute process * Normal WBC * reports non-compliance to medication muscle twitching * CT head with no acute intracranial process * EEG pending * MRI pending * Neurology consulted appreciate any new recommendations * Childhood seizures * No anticonvulsants medications currently chronic renal failure * CR 1.4 POA baseline 2.00 * Avoid nephrotoxic drugs. * Monitor antihypertensive drug therapy. * Avoid NSAIDs. * Routine CMP monitoring GFR. * Monitor electrolytes especially potassium. HTN * Hypertensive * Resumed Coreg and ramipril and Procardia * add hydralazine IVP systolic >160 Diabetes * Accu-Cheks a.c. HS * sliding scale insulin * Discontinue the use of glipizide HX of CKD * Diabetic diet * consult to dietitian * encourage lifestyle modifications and weight loss * Optimize Onel inhibitors and statins. * Watch for hypoglycemia/hypoglycemic protocol ordered HX Anemia: Stable Hgb 11 HX Dementia HX of GERD: resumed PPI HX CHF: Stable resumed PO Lasix HX HLD: Resumed statin Code status: Full code per patient DVT prophylaxis: Lovenox Stress ulcer prophylaxis: Protonix 40 daily PT/OT notes: PT/OT pending Disposition: Patient admitted to the medical unit for further evaluation of AMS/hallucinations and tremors vs muscle twitching, neurology consulted and EEG/MRI pending. PT/OT pending but patient usually refuses to go to a SNF had HH prior to admission. Time Spent With Patient Time with patient: 15 - 25 minutes Subjective Date/time seen: 10/08/23 07:13 Interval history: Admission: This is a 63-year-old male with history of strokes, vascular dementia, bipolar disorder, coronary artery disease status post 3 vessel coronary artery bypass, heart failure with preserved ejection fraction, paroxysmal atrial fibrillation not on chronic anticoagulation, peripheral arterial disease, hypertension, chronic kidney disease, chronic anemia, and insulin-dependent type 2 diabetes mellitus who presented to the emergency department for evaluation of altered mental status. The patient is able to provide some history however his provides the majority of the following given his confusion. He was admitted to the hospital about 4 weeks ago after presenting with shortness of breath and abdominal pain. He was treated for congestive heart failure, pneumonia, and cholecystitis status post cholecystostomy tube and was discharged home on Augmentin, Bactrim, and Flagyl. He has been doing pretty well in that regard. Over the last couple of days he has become altered. He is having hallucinations (seeing people around him who are apparently talking about killing people) and behavior disturbances such as anger outbursts in which he threw a table (however states that he does have anger outbursts because he is ?spoiled?). He had some hallucinations while in the hospital however those resolved on discharge and returned recently. She has also noticed that he has occasional an unintentional twitching of the right side of his body and she is wondering if he may be having seizures as he apparently had them when he was younger. At the time of my evaluation he has no complaints and denies fever, headache, chest pain, shortness of breath, cough, abdominal pain, nausea, vomiting, diarrhea, and dysuria. He has not had any falls or head trauma. He is not having any hallucinations at this time and is alert and oriented. 10/08/2023: Assumed Care Patient denied any pain, CP, COB, ABD pain N/V/D or dizziness. IT was reported he has not slept for a few days and still hallucinating was speaking to his who was not in the room during our assessment. Redirected patient that was not present he can answer all questions appropriately is alert and oriented x4. He started on Seroquel 25 mg at night will increase as needed. Patient reports childhood seizures but on no seizure medications neurology consulted for further recs., may need to be started on anticonvulsants medication. Review of Systems Review of Systems: 12 systems were reviewed and are negativ e except for as per HPI. All systems reviewed & are unremarkable except as noted in HPI and below Exam Narrative: Physical Exam: * GENERAL: Alert and oriented x 3. No acute distress. * EYES: EOMI. No scleral icterus. PERRLA. * HEENT: Moist mucous membranes. * LUNGS: Clear to auscultation bilaterally. No accessory muscle use. * CARDIOVASCULAR: Regular rate and rhythm. No murmur. No JVD. S1-S2 * ABDOMEN: Soft, non tenderness and non-distended. No palpable masses. * EXTREMITIES: No edema. Non-tender * SKIN: No rashes or lesions. Skin warm, dry. * NEUROLOGIC: No focal neurological deficits. CN II-XII grossly intact * PSYCHIATRIC: Appropriate mood and affect. Good judgement and insight. Visual hallucinations. No suicidal or homicidal ideation. Objective Data Vital Signs Vital Signs: Vital Signs - 24 hr 10/07/23 10:26 10/07/23 10:35 10/07/23 10:35 Temperature 98.4 F Pulse Rate 60 60 Respiratory Rate 16 Blood Pressure 143/76 H Pulse Oximetry 95 97 Oxygen Delivery Room Air Room Air Oxygen Flow Rate 10/07/23 12:46 10/07/23 13:30 10/07/23 14:00 Temperature 97.8 F 97.6 F Pulse Rate 62 64 65 Respiratory Rate 16 18 18 Blood Pressure 160/62 H 111/95 H 175/72 H Pulse Oximetry 95 94 94 Oxygen Delivery Oxygen Flow Rate 10/07/23 14:41 10/07/23 15:17 10/07/23 15:18 Temperature 97.8 F Pulse Rate 66 65 Respiratory Rate 18 18 Blood Pressure 174/78 H 170/78 H Pulse Oximetry 94 96 95 Oxygen Delivery Nasal Cannula Oxygen Flow Rate 2 10/07/23 15:40 10/07/23 16:00 10/07/23 19:15 Temperature 98.3 F 98.2 F Pulse Rate 65 68 70 Respiratory Rate 16 18 Blood Pressure 165/72 H 176/63 H Pulse Oximetry 100 100 Oxygen Delivery Oxygen Flow Rate 10/07/23 14:05 10/07/23 20:00 10/07/23 20:00 Temperature Pulse Rate 68 Respiratory Rate Blood Pressure Pulse Oximetry 95 100 Oxygen Delivery Nasal Cannula Nasal Cannula Oxygen Flow Rate 1 1 10/08/23 00:00 10/08/23 04:13 10/08/23 04:00 Temperature 98.1 F Pulse Rate 68 66 78 Respiratory Rate 18 Blood Pressure 188/65 H Pulse Oximetry 98 Oxygen Delivery Oxygen Flow Rate Intake/Output Intake/Output: Intake & Output 10/05/23 10/06/23 10/07/23 10/08/23 23:59 23:59 23:59 23:59 Intake Total 240 120 Output Total 400 Balance -160 120 Meds/Results Medications: Active Medications Generic Name Dose Route Start Last Admin Trade Name Freq PRN Reason Stop Dose Admin Acetaminophen 650 mg 10/07/23 14:36 Acetaminophen 325 Mg Tablet PO Q4H PRN Mild Pain (1-3) or Fever Albuterol 2 puff 10/07/23 17:56 Albuterol Sulfate (*Sp) Aerosol 1 Puff INHALATION PRN PRN shortness of breath or wheezing Aspirin 325 mg 10/08/23 09:00 Aspirin 325 Mg Tablet PO 11/07/23 08:59 DAILY GEOFFREY Atorvastatin Calcium 80 mg 10/07/23 21:00 10/07/23 21:06 Atorvastatin 40 Mg Tablet PO 80 mg HS GEOFFREY Administration Carvedilol 25 mg 10/08/23 08:00 Carvedilol 25 Mg Tablet PO BIDWM GEOFFREY Clopidogrel Bisulfate 75 mg 10/08/23 09:00 Clopidogrel Bisulfate 75 Mg Tablet PO DAILY [facility] Dextrose 12.5 gm 10/07/23 17:45 Dextrose 50% 25 Gm/50 Ml Syringe IV PUSH PRN PRN Hypoglycemia Protocol Fish Oil 1 gm 10/08/23 09:00 [place] 3 Polyunsat Fatty Acids 1 Gm Cap PO 11/07/23 08:59 DAILY [facility] Furosemide 20 mg 10/08/23 09:00 Furosemide 20 Mg Tablet PO DAILY [facility] Gabapentin 100 mg 10/07/23 22:00 10/08/23 05:56 Gabapentin 100 Mg Capsule PO 100 mg Q8HR GEOFFREY Administration Glucagon 1 mg 10/07/23 17:45 Glucagon For Inj 1 Mg Vial IM PRN PRN Hypoglycemia Protocol Glucose 15 gm 10/07/23 17:45 Glucose Oral Gel 15 Gm Of Glucse In 37.5 Gm Tube PO PRN PRN Hypoglycemia Protocol Dextrose 1,000 mls @ 100 mls/hr 10/07/23 17:45 Dextrose 5% 1,000 Ml IVPB PRN PRN Hypoglycemia Protocol Melatonin 10 mg 10/07/23 21:00 10/07/23 21:06 Melatonin 5 Mg Tablet PO 10 mg HS [facility] Administration Nifedipine 60 mg 10/08/23 09:00 Nifedipine 30 Mg Tab.Er.24 PO QAM [facility] Ondansetron HCl 4 mg 10/07/23 14:36 Ondansetron Inj 4 Mg/2 Ml Vial IV PUSH Q4H PRN Nausea Pantoprazole Sodium 40 mg 10/08/23 09:00 Pantoprazole 40 Mg Tablet PO 11/07/23 08:59 DAILY [facility] Paroxetine HCl 40 mg 10/08/23 09:00 Paroxetine 20 Mg Tablet PO DAILY [facility] Ramipril 10 mg 10/08/23 09:00 Ramipril 5 Mg Capsule PO DAILY [facility] Radiology Results: ITS Impressions Head CT 10/07/23 14:07 IMPRESSION: No acute intracranial findings. Abdomen Ultrasound 10/07/23 16:04 IMPRESSION: 1. Nonvisualization of the gallbladder and pancreas. Otherwise, Unremarkable limited ultrasound of the abdomen. Labs Labs: Laboratory Results - last 24 hr 10/07/23 10/07/23 10/07/23 10:52 10:55 11:25 WBC 7.2 RBC 3.98 L Hgb 11.0 L Hct 35.2 L MCV 88.4 MCH 27.6 MCHC 31.3 L RDW 15.4 H Plt Count 343 MPV 11.2 H Immature Gran % (Auto) 0.3 Neut % (Auto) 50.9 Lymph % (Auto) 28.4 [place] % (Auto) 8.9 H Eos % (Auto) 9.5 H Baso % (Auto) 2.0 H Lymph # (Auto) 2.03 [place] # (Auto) 0.6 Eos # (Auto) 0.7 H Baso # (Auto) 0.1 Abs Immat Gran (auto) 0.02 Absolute Neuts (auto) 3.7 Absolute Nucleated RBC 0.000 Nucleated RBC % 0.0 Puncture Site Right radial ABG pH 7.399 ABG pCO2 46.1 H ABG pO2 57.1 L ABG PO2/FiO2 Ratio 2.72 ABG HCO3 27.9 H ABG O2 Saturation 89.5 L ABG O2 Content 13.6 L ABG Base Excess 2.6 A-a Gradient 37.4 Oxyhemoglobin 87.5 L* Carboxyhemoglobin 0.6 Methemoglobin 0.2 Reduced Hemoglobin 11.7 H Total Hemoglobin 11.0 L O2 Delivery Device Room air O2 Liters/Min Not Reportable FiO2 21 Sodium 138 Potassium 4.6 Chloride 104 Carbon Dioxide 28 Anion Gap 6 BUN 19 D Creatinine 1.40 H Estim Creat Clear Calc 50 Estimated GFR 51 L Glucose 81 POC Capillary Glucose Calcium 8.7 Total Bilirubin 0.4 AST 18 ALT 9 Alkaline Phosphatase 88 Total Protein 7.0 Albumin 3.2 L Lipase 104 TSH (Reflex) 3.660 Urine Color Urine Appearance Urine pH Ur Specific [place] Urine Protein Urine Glucose (UA) Urine Ketones Ur Blood (Man) Urine Nitrate Urine Bilirubin Urine Urobilinogen Leukocyte Esterase Rfl Urine RBC Urine WBC Ur Squamous Epith Cells Urine Bacteria Urine Casts Urine Opiates Screen Urine Methadone Screen Ur Barbiturates Screen Ur Phencyclidine Scrn Ur Amphetamine Screen U Benzodiazepines Scrn Urine Cocaine Screen U Cannabinoids Screen Ethyl Alcohol < 10 Influenza A (RT-PCR) Negative Influenza B (RT-PCR) Negative RSV (RT-PCR) Negative SARS-CoV-2 RNA (RT-PCR) Negative 10/07/23 10/07/23 10/07/23 12:10 17:32 17:49 WBC RBC Hgb Hct MCV MCH MCHC RDW Plt Count MPV Immature Gran % (Auto) Neut % (Auto) Lymph % (Auto) [place] % (Auto) Eos % (Auto) Baso % (Auto) Lymph # (Auto) [place] # (Auto) Eos # (Auto) Baso # (Auto) Abs Immat Gran (auto) Absolute Neuts (auto) Absolute Nucleated RBC Nucleated RBC % Puncture Site ABG pH ABG pCO2 ABG pO2 ABG PO2/FiO2 Ratio ABG HCO3 ABG O2 Saturation ABG O2 Content ABG Base Excess A-a Gradient Oxyhemoglobin Carboxyhemoglobin Methemoglobin Reduced Hemoglobin Total Hemoglobin O2 Delivery Device O2 Liters/Min FiO2 Sodium Potassium Chloride Carbon Dioxide Anion Gap BUN Creatinine Estim Creat Clear Calc Estimated GFR Glucose POC Capillary Glucose 61 L 90 Calcium Total Bilirubin AST ALT Alkaline Phosphatase Total Protein Albumin Lipase TSH (Reflex) Urine Color Yellow Urine Appearance Clear Urine pH 6.5 Ur Specific [place] 1.010 Urine Protein 3+ H Urine Glucose (UA) Trace H Urine Ketones Negative Ur Blood (Man) Negative Urine Nitrate Negative Urine Bilirubin Negative Urine Urobilinogen 0.2 Leukocyte Esterase Rfl Negative Urine RBC 0-2 Urine WBC 0-5 Ur Squamous Epith Cells None seen Urine Bacteria None seen Urine Casts 3-5 Urine Opiates Screen Negative Urine Methadone Screen Negative Ur Barbiturates Screen Negative Ur Phencyclidine Scrn Negative Ur Amphetamine Screen Negative U Benzodiazepines Scrn Negative Urine Cocaine Screen Negative U Cannabinoids Screen Negative Ethyl Alcohol Influenza A (RT-PCR) Influenza B (RT-PCR) RSV (RT-PCR) SARS-CoV-2 RNA (RT-PCR) 10/07/23 10/07/23 18:54 19:18 WBC RBC Hgb Hct MCV MCH MCHC RDW Plt Count MPV Immature Gran % (Auto) Neut % (Auto) Lymph % (Auto) [place] % (Auto) Eos % (Auto) Baso % (Auto) Lymph # (Auto) [place] # (Auto) Eos # (Auto) Baso # (Auto) Abs Immat Gran (auto) Absolute Neuts (auto) Absolute Nucleated RBC Nucleated RBC % Puncture Site ABG pH ABG pCO2 ABG pO2 ABG PO2/FiO2 Ratio ABG HCO3 ABG O2 Saturation ABG O2 Content ABG Base Excess A-a Gradient Oxyhemoglobin Carboxyhemoglobin Methemoglobin Reduced Hemoglobin Total Hemoglobin O2 Delivery Device O2 Liters/Min FiO2 Sodium Potassium Chloride Carbon Dioxide Anion Gap BUN Creatinine Estim Creat Clear Calc Estimated GFR Glucose POC Capillary Glucose 156 H 169 H Calcium Total Bilirubin AST ALT Alkaline Phosphatase Total Protein Albumin Lipase TSH (Reflex) Urine Color Urine Appearance Urine pH Ur Specific [place] Urine Protein Urine Glucose (UA) Urine Ketones Ur Blood (Man) Urine Nitrate Urine Bilirubin Urine Urobilinogen Leukocyte Esterase Rfl Urine RBC Urine WBC Ur Squamous Epith Cells Urine Bacteria Urine Casts Urine Opiates Screen Urine Methadone Screen Ur Barbiturates Screen Ur Phencyclidine Scrn Ur Amphetamine Screen U Benzodiazepines Scrn Urine Cocaine Screen U Cannabinoids Screen Ethyl Alcohol Influenza A (RT-PCR) Influenza B (RT-PCR) RSV (RT-PCR) SARS-CoV-2 RNA (RT-PCR) Quality VTE Prophylaxis VTE prophylaxis: pharmacologic ordered -Patient's previous records reviewed on admission -ER notes reviewed in detail on admission -discussed all findings and current treatment plan with patient/Family/POA -Consultations reviewed for recommendations -Patient's disposition for safe discharge discussed with caser up Dictation performed by [email or web address] direct speech recognition software, therefore cement mason helper variants and typographical errors may occur. Hospitalist MIPS Advance Care Plan I have confirmed that the patient's Advanced Care Plan is present, code status is documented, or surrogate decision maker is listed in patient medical record.: Yes Medication Reconciliation I have utilized all available resources to obtain, update and review the patients current medications (includes all prescriptions, OTC, herbals, cannabis, and nutritional supplements).: Yes The patient is not eligible for med reconciliation; the patient is in a emergent medical situation where delaying treatment would jeopardize the patients hea lt.: No
[2023-10-08 08:12] LABS: Glucose Point of Care 107 mg/dl (65-105)
[2023-10-08] MEDS: carvediloL 25 MG TABLET PO ×2 (08:14→17:08)
[2023-10-08] MEDS: ENOXAPARIN 40 MG/0.4 ML SYRINGE SUB-Q (08:19)
[2023-10-08] MEDS: CLOPIDOGREL BISULFATE 75 MG TABLET PO (08:19)
[2023-10-08] MEDS: ASPIRIN 325 MG TABLET PO (08:19)
[2023-10-08] MEDS: PANTOPRAZOLE 40 MG TABLET PO (08:20)
[2023-10-08] MEDS: FUROSEMIDE 20 MG TABLET PO (08:20)
[2023-10-08] MEDS: ramipriL 5 MG CAPSULE 10 MG PO (08:20)
[2023-10-08] MEDS: NIFEdipine 30 MG TAB.ER.24 60 MG PO (08:20)
[2023-10-08] MEDS: OMEGA 3 POLYUNSAT FATTY ACIDS 1 GM CAP PO (08:20)
[2023-10-08] MEDS: PARoxetine 20 MG TABLET 40 MG PO (08:20)
[2023-10-08 09:07] LABS: Hemoglobin 10.6 g/dL (14.0-18.0); Mean Corpuscular HGB Conc 30.3 g/dl (32-36); Mean Corpuscular Volume 89.1 fl (80-100); Mean Platelet Volume 10.8 fl (7.4-10.4); Platelet Count Result 346 k/mm3 (150-375); Red Blood Count 3.93 M/mm3 (4.6-6.20); White Blood Count 6.5 K/mm3 (4.5-10.0)
[2023-10-08 09:09] LABS: Ammonia < 9 umol/L (9-30)
[2023-10-08 09:21] LABS: Alanine Aminotransferase 8 U/L (6-50); Albumin Level 3.2 g/dL (3.5-5.1); Alkaline Phosphatase 92 U/L (38-126); Anion Gap 6 mmol/L (4-12); Aspartate Amino Transferase 20 U/L (17-59); Bilirubin,Total 0.4 mg/dL (0.2-1.3); Blood Urea Nitrogen 19 mg/dL (9-20); Calcium 8.7 mg/dL (8.4-10.2); Carbon Dioxide 30 mmol/L (22-30); Chloride 102 mmol/L (98-107); Estimated CRCL calculation 50 ml/min; Estimated Glomerular Filt Rate 51; Glucose 111 mg/dL (65-110); Potassium 5.4 mmol/L (3.4-5.0); Sodium 138 mmol/L (137-145)
--- NOTE | 2023-10-08 10:11 | P.CONNEU_ITS ---
Assessment and Plan Assessment and plan (1) Seizure disorder: Code(s): G40.909 - Epilepsy, unspecified, not intractable, without status epilepticus Status: Acute Plan 1. 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 Hallucination particularly visual 3. History of diabetes mellitus and atrial fibrillation in the past as well. 4. Possibilities of focal seizure in the setting of the multiple medical problems. He is receiving multiple medication but can be started on Keppra 500mg twice a day With the possibility of seizure. Consult date: 10/08/23 HPI: Robert Rendon is a 63 year old male Has been admitted to the hospital through the emergency room for the complaints of hallucination and with the information that over the last 24hours he has been seeing people and a little girl to tell him that he needs to join a group that is going to kill people with no specific person being targeted at the time of initial evaluation in the ER he was not suicidal he gave no history of being schizophrenic did report at 1 time he was depressed and also give no history of being started on the new medication he has not been experiencing any chills and has no fever. On initial evaluation in the emergency room with medications include paroxetine 40mg daily ramipril 10mg daily glipizide 10mg twice a day aspirin 325mg daily clopidogrel 75mg daily insulin by sliding scale and melatonin 10mg at night. He is not allergic to any medication. He does have ongoing history of bipolar disease on a chronic basis in addition to the history of having had multiple stroke with resultant left- sided weakness in addition to chronic renal disease stage III, coronary artery disease, diabetes with peripheral neuropathy, and cardiac disease with heart failure mitral valve involvement. He is never a smoker with history of being former alcohol intaker. on initial evaluation in the emergency room he was afebrile with blood pressure 165/72, CBC was normal, BMP was normal with BUN 19 and creatinine 1.40 and routine lab studies were negative including the screening for the influenza a B RSV and SARS-COVID-, since admission to the hospital he has had MRI of the brain which revealed him to have old lacunar infarct in the right coronal radiata and centrum semi ovale with old lacunar infarcts in the jamie without any acute bleed or other acute stroke. At present he is taking multiple medications which include aspirin 325mg daily, atorvastatin 80mg at night, carvedilol 25mg twice a day, clopidogrel 75mg daily, furosemide 20mg daily, in addition to gabapentin 100mg Q 8hours and paroxetine 40mg daily and ramipril 10mg daily also he is on insulin S Review of Systems Review of Systems: All systems reviewed & are unremarkable except as noted in HPI and below [facility] Past Medical History Medical History Anemia Bipolar disease, chronic Cerebrovascular accident Multiple strokes with residual left-sided weakness, dysarthria, and dysphagia. Chronic kidney disease, stage 3 Coronary artery disease Diabetic peripheral neuropathy Gastroesophageal reflux disease Heart failure with preserved ejection fraction Hypertension Insulin dependent type 2 diabetes mellitus Mitral valve disease Myocardial infarction Paroxysmal atrial fibrillation Peripheral artery disease Vascular dementia Surgical History Surgical History History of cardiac catheterization History of coronary artery bypass graft x 3 (11/2001) History of coronary artery stent placement (2017) History of vascular surgery (2012) Bilateral lower extremity stents two stents. Family History Family History Mother Acute myocardial infarction Cerebrovascular accident Diabetes mellitus Hypertension Sibling Acute myocardial infarction AIDS Sibling AIDS Social History Social History Social History: Surrogate medical decision maker: Maite Julieta, spouse. Code status: Smoking status: Never smoker Second hand tobacco smoke exposure: No Alcohol intake: former Substance use: never Substance use type: does not use Do You Feel Safe in your Home?: Yes Lack of Transportation: No Lack of Food: Never True Current Housing: I Do Not Have Housing Concerned About Future Housing: No Difficulty Paying Gas/Electric Bills: No Difficulty Paying for Meds: No Currently Unemployed: No Education: High School Diploma/GED Difficulty w/ Childcare or Family Care: No Additional living arrangements comments: Lives with spouse. Spiritual care concerns: No Agree to blood products: Yes Meds Home Medications and Allergies Home Medications Medication Instructions Recorded Confirmed Type omeprazole 20 mg capsule,delayed 20 mg PO DAILY 03/04/19 10/07/23 History release paroxetine HCl 20 mg tablet 40 mg PO DAILY 03/04/19 10/07/23 History ramipril 10 mg capsule 10 mg PO DAILY 03/04/19 10/07/23 History gabapentin 100 mg capsule 100 mg PO TID #90 caps 07/10/21 10/07/23 Rx glipizide 5 mg tablet 10 mg PO BID 09/14/22 10/07/23 History omega 9-mob-elu-fish oil 60 mg-90 1 cap PO DAILY 03/24/23 10/07/23 History mg-500 mg capsule (Fish Oil) aspirin 325 mg capsule 325 mg PO DAILY 07/30/23 10/07/23 History clopidogrel 75 mg tablet 75 mg PO DAILY 07/30/23 10/07/23 History guaifenesin 600 mg tablet, 1,200 mg PO Q12HR #14 tabs 08/03/23 10/07/23 Rx extended release 12 hr (Mucus Relief ER) atorvastatin 80 mg tablet 80 mg PO HS 30 days #30 tabs 08/04/23 10/07/23 Rx insulin lispro 100 unit/mL 1 sliding scale dose subcut 09/11/23 10/07/23 History subcutaneous pen USEASDIRECTD melatonin 3 mg tablet 10 mg PO HS 09/11/23 10/07/23 History carvedilol 25 mg tablet (Coreg) 25 mg PO BIDWM #60 tabs 09/22/23 10/07/23 Rx furosemide 20 mg tablet 20 mg PO DAILY #30 tabs 09/22/23 10/07/23 Rx nifedipine 30 mg tablet,extended 60 mg PO QAM #30 tabs 09/22/23 10/07/23 Rx release 24 hr (Procardia XL) albuterol sulfate 90 mcg/actuation 2 puff inhalation PRN PRN 10/07/23 10/07/23 History aerosol inhaler shortness of breath or wheezing Allergies Allergy/AdvReac Type Severity Reaction Status Date / Time No Known Allergies Allergy Verified 01/25/23 13:36 Vital Signs Vital Signs - 24 hr 10/07/23 10:26 10/07/23 10:35 10/07/23 10:35 Temperature 36.9 C Pulse Rate 60 60 Respiratory Rate 16 Blood Pressure 143/76 H Pulse Oximetry 95 97 Oxygen Delivery Room Air Room Air Oxygen Flow Rate 10/07/23 12:46 10/07/23 13:30 10/07/23 14:00 Temperature 36.6 C 36.4 C Pulse Rate 62 64 65 Respiratory Rate 16 18 18 Blood Pressure 160/62 H 111/95 H 175/72 H Pulse Oximetry 95 94 94 Oxygen Delivery Oxygen Flow Rate 10/07/23 14:41 10/07/23 15:17 10/07/23 15:18 Temperature 36.6 C Pulse Rate 66 65 Respiratory Rate 18 18 Blood Pressure 174/78 H 170/78 H Pulse Oximetry 94 96 95 Oxygen Delivery Nasal Cannula Oxygen Flow Rate 2 10/07/23 15:40 10/07/23 16:00 10/07/23 19:15 Temperature 36.8 C 36.8 C Pulse Rate 65 68 70 Respiratory Rate 16 18 Blood Pressure 165/72 H 176/63 H Pulse Oximetry 100 100 Oxygen Delivery Oxygen Flow Rate 10/07/23 14:05 10/07/23 20:00 10/07/23 20:00 Temperature Pulse Rate 68 Respiratory Rate Blood Pressure Pulse Oximetry 95 100 Oxygen Delivery Nasal Cannula Nasal Cannula Oxygen Flow Rate 1 1 10/08/23 00:00 10/08/23 04:13 10/08/23 04:00 Temperature 36.7 C Pulse Rate 68 66 78 Respiratory Rate 18 Blood Pressure 188/65 H Pulse Oximetry 98 Oxygen Delivery Oxygen Flow Rate 10/08/23 08:13 10/08/23 08:14 10/08/23 08:19 Temperature 36.5 C Pulse Rate 72 72 Respiratory Rate 20 Blood Pressure 161/86 H Pulse Oximetry 100 100 Oxygen Delivery Nasal Cannula Oxygen Flow Rate 1 Exam Narrative: exam today reveals him to be awake alert cooperative in no obvious acute distress, head normocephalic with no bruit, extraocular movements full with anicteric sclera, heart regular with systolic murmur, lungs clear abdomen is soft with no organomegaly neurologically he is awake alert follows instruction reflexes absent sluggish in lower extremities Left plantar upgoing. Results Labs 10/08/23 08:45 10/08/23 08:44 Labs: Short CBC 10/07/23 10/08/23 Range/Units 10:55 08:45 WBC 7.2 6.5 (4.5-10.0) K/mm3 Hgb 11.0 L 10.6 L (14.0-18.0) g/dL Hct 35.2 L 35.0 L (42.0-52.0) % Plt Count 343 346 (150-375) k/mm3 [facility] 10/07/23 10/08/23 10:55 08:44 Sodium 138 138 Potassium 4.6 5.4 H Chloride 104 102 Carbon Dioxide 28 30 BUN 19 D 19 Creatinine 1.40 H 1.40 H Glucose 81 111 H Calcium 8.7 8.7 Liver Function 10/07/23 10/08/23 Range/Units 10:55 08:44 Total Bilirubin 0.4 0.4 (0.2-1.3) mg/dL AST 18 20 (17-59) U/L ALT 9 8 (6-50) U/L Alkaline Phosphatase 88 92 (38-126) U/L Albumin 3.2 L 3.2 L (3.5-5.1) g/dL Urine 10/07/23 Range/Units 12:10 Urine Color Yellow (Yellow) Urine Appearance Clear (Clear) Urine pH 6.5 (5.0-9.0) Ur Specific [place] 1.010 (1.001-1.035) Urine Protein 3+ H (Negative) mg/dL Urine Glucose (UA) Trace H (Negative) mg/dL
--- NOTE | 2023-10-08 11:07 | PCNEURO ---
EEG unable to be done at this time. Patient is confused/hallucinating and uncooperative.
[2023-10-08 12:20] LABS: Glucose Point of Care 107 mg/dl (65-105)
[2023-10-08 17:10] LABS: Glucose Point of Care 122 mg/dl (65-105)
[2023-10-08] MEDS: MELATONIN 5 MG TABLET 10 MG PO (19:41)
[2023-10-08] MEDS: QUEtiapine FUMARATE 25 MG TABLET PO (19:42)
[2023-10-08] MEDS: ATORVASTATIN 40 MG TABLET 80 MG PO (19:42)
[2023-10-08] MEDS: ACETAMINOPHEN 325 MG TABLET 650 MG PO (19:42)
[2023-10-08] MEDS: levETIRAcetam 500 MG TABLET PO (19:42)
[2023-10-09] VITALS (15 sets, daily range): BP systolic 125–184; BP diastolic 54–90; PULSE 56–104; RESP 12–22; TEMP 36.3–36.4; O2SAT 91–100
[2023-10-09 00:13] LABS: Glucose Point of Care 108 mg/dl (65-105)
[2023-10-09 03:01] LABS: Glucose Point of Care 86 mg/dl (65-105)
--- NOTE | 2023-10-09 03:02 | ECG_ITS ---
Test Date: 2023-10-09 03:15:16 Measurements Intervals [place] Rate: 49 P: 34 VT: 201 QRS: -13 QRSD: 151 T: 21 QT: 517 QTc: 468 Interpretive Statements SINUS BRADYCARDIA WITH MARKED SINUS ARRHYTHMIA BORDERLINE AV CONDUCTION DELAY RIGHT BUNDLE BRANCH BLOCK ABNORMAL ECG Compared to ECG 10/07/2023 12:39:38 HEART RATE HAS DECREASED Electronically Signed On 10-09-2023 06:40:43 CDT by Silas Souza D.O.
[2023-10-09 06:57] LABS: Glucose Point of Care 99 mg/dl (65-105)
[2023-10-09 07:11] LABS: Hematocrit 34.2 % (42.0-52.0); Hemoglobin 10.3 g/dL (14.0-18.0); Mean Corpuscular HGB Conc 30.1 g/dl (32-36); Mean Corpuscular Hemoglobin 26.8 pg (26-34); Mean Corpuscular Volume 88.8 fl (80-100); Mean Platelet Volume 11.7 fl (7.4-10.4); Platelet Count Result 311 k/mm3 (150-375); Red Blood Count 3.85 M/mm3 (4.6-6.20); Red Cell Distribution Width 15.1 % (11.5-14.5)
[2023-10-09 07:39] LABS: Magnesium 1.8 mg/dL (1.6-2.3)
[2023-10-09 07:41] LABS: Alanine Aminotransferase 8 U/L (6-50); Albumin Level 3.2 g/dL (3.5-5.1); Alkaline Phosphatase 94 U/L (38-126); Anion Gap 7 mmol/L (4-12); Aspartate Amino Transferase 21 U/L (17-59); Bilirubin,Total 0.5 mg/dL (0.2-1.3); Blood Urea Nitrogen 22 mg/dL (9-20); Calcium 8.4 mg/dL (8.4-10.2); Carbon Dioxide 27 mmol/L (22-30); Chloride 102 mmol/L (98-107); Estimated CRCL calculation 47 ml/min; Estimated Glomerular Filt Rate 47; Glucose 99 mg/dL (65-110); Potassium 4.9 mmol/L (3.4-5.0); Sodium 136 mmol/L (137-145)
--- NOTE | 2023-10-09 07:48 | PCPTNOTE ---
Attempted PT evaluation, pt too drowsy to safely participate in PT evaluation. Will follow.
[2023-10-09 08:00] LABS: Glucose Point of Care 102 mg/dl (65-105)
--- NOTE | 2023-10-09 09:00 | ECG_ITS ---
Test Date: 2023-10-09 09:43:55 Measurements Intervals [place] Rate: 66 P: -24 TN: 120 QRS: -23 QRSD: 150 T: 12 QT: 455 QTc: 480 Interpretive Statements SINUS RHYTHM RIGHT BUNDLE BRANCH BLOCK BASELINE ARTIFACT- II, III, AVR, AVF ABNORMAL ECG Compared to ECG 10/09/2023 03:15:16 Sinus bradycardia no longer present Sinus arrhythmia no longer present Electronically Signed On 10-09-2023 12:32:36 CDT by Silas Souza D.O.
[2023-10-09] MEDS: ASPIRIN 325 MG TABLET PO (11:03)
[2023-10-09] MEDS: carvediloL 25 MG TABLET PO (11:03)
[2023-10-09] MEDS: CLOPIDOGREL BISULFATE 75 MG TABLET PO (11:04)
[2023-10-09] MEDS: OMEGA 3 POLYUNSAT FATTY ACIDS 1 GM CAP PO (11:04)
[2023-10-09] MEDS: ENOXAPARIN 40 MG/0.4 ML SYRINGE SUB-Q (11:04)
[2023-10-09] MEDS: NIFEdipine 30 MG TAB.ER.24 60 MG PO (11:04)
[2023-10-09] MEDS: levETIRAcetam 500 MG TABLET PO ×2 (11:04→20:17)
[2023-10-09] MEDS: FUROSEMIDE 20 MG TABLET PO (11:04)
[2023-10-09] MEDS: PANTOPRAZOLE 40 MG TABLET PO (11:05)
[2023-10-09] MEDS: PARoxetine 20 MG TABLET 40 MG PO (11:05)
[2023-10-09] MEDS: ramipriL 5 MG CAPSULE 10 MG PO (11:05)
--- NOTE | 2023-10-09 11:26 | PM.PNGS ---
Progress Note: A&P Assessment and Plan (1) Cholecystitis: Code(s): K81.9 - Cholecystitis, unspecified Status: Acute Assessment and Plan: cont perc crystal tube for now, low fat diet, no acute surgical issues, f/u as outpt to remove tube and discuss interval crystal (2) Hallucinations, visual: Code(s): R44.1 - Visual hallucinations Status: Acute Assessment and Plan: improved, cont workup per medicine and neurology Subjective Subjective Date/Time Seen: 10/09/23 11:26 Interval history: pretty sommulent, lethargic this am, denies any abd pain Review of Systems Review of Systems: ROS unobtainable: Yes unobtainable due to mental status Exam Const: General: no acute distress, ill appearing and lethargic Resp: Auscultation: diminished lung sounds Cardio: Rate: regular rate Rhythm: regular rhythm GI: Inspection: normal to inspection and non-distended GI Palp: No abdominal tenderness and Yes Soft to palpation Other: crystal tube c bilious drainage, sludge Objective Data Vital Signs Vital Signs: Vital Signs - 24 hr 10/08/23 12:00 10/08/23 14:00 10/08/23 17:08 Temperature 37.1 C Pulse Rate 62 63 68 Respiratory Rate 16 Blood Pressure 164/64 H Pulse Oximetry 92 Oxygen Delivery Oxygen Flow Rate 10/08/23 16:00 10/08/23 17:23 10/08/23 19:42 Temperature 36.6 C Pulse Rate 71 63 Respiratory Rate 20 Blood Pressure 153/65 H Pulse Oximetry 95 92 Oxygen Delivery Room Air Oxygen Flow Rate 10/09/23 03:38 10/08/23 20:00 10/09/23 00:00 Temperature 36.4 C Pulse Rate 104 H 61 56 L Respiratory Rate 22 H Blood Pressure 125/54 L Pulse Oximetry 100 Oxygen Delivery Oxygen Flow Rate 10/09/23 04:00 10/09/23 08:50 10/09/23 10:13 Temperature Pulse Rate 56 L 68 Respiratory Rate 18 Blood Pressure 168/69 H Pulse Oximetry 94 91 Oxygen Delivery Nasal Cannula Oxygen Flow Rate 2 10/09/23 10:31 10/09/23 11:03 Temperature Pulse Rate 69 Respiratory Rate Blood Pressure Pulse Oximetry 94 Oxygen Delivery Nasal Cannula Oxygen Flow Rate 2 Intake/Output Intake/Output: Intake & Output 10/06/23 10/07/23 10/08/23 10/09/23 23:59 23:59 23:59 23:59 Intake Total 240 480 120 Output Total 400 1100 300 Balance -160 620 -180 Meds/Results Medications: Active Medications Generic Name Dose Route Start Last Admin Trade Name Freq PRN Reason Stop Dose Admin Acetaminophen 650 mg 10/07/23 14:36 10/08/23 19:42 Acetaminophen 325 Mg Tablet PO 650 mg Q4H PRN Administration Mild Pain (1-3) or Fever Albuterol 2 puff 10/07/23 17:56 Albuterol Sulfate (*Sp) Aerosol 1 Puff INHALATION PRN PRN shortness of breath or wheezing Aspirin 325 mg 10/08/23 09:00 10/09/23 11:03 Aspirin 325 Mg Tablet PO 11/07/23 08:59 325 mg DAILY GEOFFREY Administration Atorvastatin Calcium 80 mg 10/07/23 21:00 10/08/23 19:42 Atorvastatin 40 Mg Tablet PO 80 mg HS GEOFFREY Administration Carvedilol 25 mg 10/08/23 08:00 10/09/23 11:03 Carvedilol 25 Mg Tablet PO 25 mg BIDWM GEOFFREY Administration Clopidogrel Bisulfate 75 mg 10/08/23 09:00 10/09/23 11:04 Clopidogrel Bisulfate 75 Mg Tablet PO 75 mg DAILY GEOFFREY Administration Dextrose 12.5 gm 10/07/23 17:45 Dextrose 50% 25 Gm/50 Ml Syringe IV PUSH PRN PRN Hypoglycemia Protocol Enoxaparin Sodium 40 mg 10/08/23 09:00 10/09/23 11:04 Enoxaparin 40 Mg/0.4 Ml Syringe SUB-Q 40 mg DAILY GEOFFREY Administration Fish Oil 1 gm 10/08/23 09:00 10/09/23 11:04 [place] 3 Polyunsat Fatty Acids 1 Gm Cap PO 11/07/23 08:59 1 gm DAILY GEOFFREY Administration Furosemide 20 mg 10/08/23 09:00 10/09/23 11:04 Furosemide 20 Mg Tablet PO 20 mg DAILY GEOFFREY Administration Gabapentin 100 mg 10/07/23 22:00 10/09/23 11:16 Gabapentin 100 Mg Capsule PO Not Given Q8HR GEOFFREY Glucagon 1 mg 10/07/23 17:45 Glucagon For Inj 1 Mg Vial IM PRN PRN Hypoglycemia Protocol Glucagon 1 mg 10/08/23 07:27 Glucagon For Inj 1 Mg Vial IM PRN PRN Hypoglycemia Protocol Glucose 15 gm 10/07/23 17:45 Glucose Oral Gel 15 Gm Of Glucse In 37.5 Gm Tube PO PRN PRN Hypoglycemia Protocol Hydralazine HCl 20 mg 10/08/23 07:24 Hydralazine Hcl 20 Mg/Ml Vial IV PUSH Q6HR PRN hypertension Dextrose 1,000 mls @ 100 mls/hr 10/07/23 17:45 Dextrose 5% 1,000 Ml IVPB PRN PRN Hypoglycemia Protocol Insulin Aspart 2 - 5 units 10/08/23 08:00 10/09/23 11:01 Insulin Aspart (*Bkc) 100 Units/Ml SUB-Q Not Given TIDWM GEOFFREY Protocol Levetiracetam 500 mg 10/08/23 21:00 10/09/23 11:04 Levetiracetam 500 Mg Tablet PO 500 mg Q12HR GEOFFREY Administration Melatonin 10 mg 10/07/23 21:00 10/08/23 19:41 Melatonin 5 Mg Tablet PO 10 mg HS GEOFFREY Administration Nifedipine 60 mg 10/08/23 09:00 10/09/23 11:04 Nifedipine 30 Mg Tab.Er.24 PO 60 mg QAM GEOFFREY Administration Ondansetron HCl 4 mg 10/07/23 14:36 Ondansetron Inj 4 Mg/2 Ml Vial IV PUSH Q4H PRN Nausea Pantoprazole Sodium 40 mg 10/08/23 09:00 10/09/23 11:05 Pantoprazole 40 Mg Tablet PO 11/07/23 08:59 40 mg DAILY GEOFFREY Administration Paroxetine HCl 40 mg 10/08/23 09:00 10/09/23 11:05 Paroxetine 20 Mg Tablet PO 40 mg DAILY GEOFFREY Administration Quetiapine Fumarate 25 mg 10/08/23 21:00 10/08/23 19:42 Quetiapine Fumarate 25 Mg Tablet PO 25 mg HS GEOFFREY Administration Ramipril 10 mg 10/08/23 09:00 10/09/23 11:05 Ramipril 5 Mg Capsule PO 10 mg DAILY GEOFFREY Administration Radiology Results: ITS Impressions Head CT 10/07/23 14:07 IMPRESSION: No acute intracranial findings. Abdomen Ultrasound 10/07/23 16:04 IMPRESSION: 1. Nonvisualization of the gallbladder and pancreas. Otherwise, Unremarkable limited ultrasound of the abdomen. Brain MRI 10/08/23 08:09 IMPRESSION: 1. No acute intracranial process. 2. No abnormal enhancement. 3. Old lacunar infarcts in the right cam radiata and centrum semiovale. Old lacunar infarcts in the jamie. Labs Labs: Laboratory Results - last 24 hr 10/08/23 10/08/23 10/08/23 12:07 17:00 19:49 WBC RBC Hgb Hct MCV MCH MCHC RDW Plt Count MPV Sodium Potassium Chloride Carbon Dioxide Anion Gap BUN Creatinine Estim Creat Clear Calc Estimated GFR Glucose POC Capillary Glucose 107 H 122 H 108 H Calcium Magnesium Total Bilirubin AST ALT Alkaline Phosphatase Total Protein Albumin 10/09/23 10/09/23 10/09/23 02:56 06:18 06:54 WBC 7.0 RBC 3.85 L Hgb 10.3 L Hct 34.2 L MCV 88.8 MCH 26.8 MCHC 30.1 L RDW 15.1 H Plt Count 311 MPV 11.7 H Sodium 136 L Potassium 4.9 Chloride 102 Carbon Dioxide 27 Anion Gap 7 BUN 22 H Creatinine 1.50 H Estim Creat Clear Calc 47 Estimated GFR 47 L Glucose 99 POC Capillary Glucose 86 99 Calcium 8.4 Magnesium 1.8 Total Bilirubin 0.5 AST 21 ALT 8 Alkaline Phosphatase 94 Total Protein 7.0 Albumin 3.2 L 10/09/23 07:49 WBC RBC Hgb Hct MCV MCH MCHC RDW Plt Count MPV Sodium Potassium Chloride Carbon Dioxide Anion Gap BUN Creatinine Estim Creat Clear Calc Estimated GFR Glucose POC Capillary Glucose 102 Calcium Magnesium Total Bilirubin AST ALT Alkaline Phosphatase Total Protein Albumin
[2023-10-09 12:00] LABS: Glucose Point of Care 97 mg/dl (65-105)
--- NOTE | 2023-10-09 13:03 | PCOTNOTE ---
Spoke with RN at 13:00. Pt is currently still very lethargic due to meds given overnight. RN reports they are working on possibly changing meds for tonight and to try pt tomorrow in hopes he is more alert and able to safely participate in therapy evaluations. Will continue to follow.
[2023-10-09] MEDS: GABAPENTIN 100 MG CAPSULE PO ×2 (13:21→20:18)
--- NOTE | 2023-10-09 14:33 | P.PNIM_ITS ---
Progress Note: A&P Assessment and Plan (1) Hallucinations, visual: Code(s): R44.1 - Visual hallucinations Status: Acute (2) Muscle twitching: Code(s): R25.3 - Fasciculation Status: Acute (3) Heart failure with preserved ejection fraction: Qualifiers: Heart failure chronicity: acute on chronic Qualified Code(s): I50.33 - Acute on chronic diastolic (congestive) heart failure Code(s): I50.30 - Unspecified diastolic (congestive) heart failure Status: Acute (4) Hypertension: Qualifiers: Hypertension type: unspecified Qualified Code(s): I10 - Essential (primary) hypertension Code(s): I10 - Essential (primary) hypertension Status: Chronic (5) Insulin dependent type 2 diabetes mellitus: Code(s): E11.9 - Type 2 diabetes mellitus without complications; 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 Status: Chronic (6) Paroxysmal atrial fibrillation: Code(s): I48.0 - Paroxysmal atrial fibrillation Status: Acute (7) Vascular dementia: Code(s): F01.50 - Vascular dementia, unspecified severity, without behavioral disturbance, psychotic disturbance, mood disturbance, and anxiety Status: Acute (8) Chronic anemia: Code(s): D64.9 - Anemia, unspecified Status: Acute (9) Altered mental status: Code(s): R41.82 - Altered mental status, unspecified Status: Acute (10) Acute kidney injury superimposed on CKD: Code(s): N17.9 - Acute kidney failure, unspecified; N18.9 - Chronic kidney disease, unspecified Status: Acute Plan Hallucinations/AMS * Possible multiple causes: Hypoglycemia stopped glipizide * Vascular Dementia * reported he has not slept for a few days * DC Seroquel as he has not woke up yet * PO2 on ABG showed 57.1 on 1 L NC * ammonia <9 * UA negative * CXR with no acute process * Normal WBC * reports non-compliance to medication muscle twitching * CT head with no acute intracranial process * EEG pending * MRI Old infarct noted * Neurology consulted appreciate any new recommendations * Childhood seizures * No anticonvulsants medications currently chronic renal failure * CR 1.5 POA baseline 2.00 * Avoid nephrotoxic drugs. * Monitor antihypertensive drug therapy. * Avoid NSAIDs. * Routine CMP monitoring GFR. * Monitor electrolytes especially potassium. HTN * Hypertensive * Resumed Coreg and ramipril and Procardia * add hydralazine IVP systolic >160 * Currently 145/59 Diabetes * Accu-Cheks a.c. HS * sliding scale insulin * Discontinue the use of glipizide HX of CKD * Diabetic diet * consult to dietitian * encourage lifestyle modifications and weight loss * Optimize Onel inhibitors and statins. * Watch for hypoglycemia/hypoglycemic protocol ordered * Current glucose 99 HX Anemia: Stable Hgb 11 HX Dementia HX of GERD: resumed PPI HX CHF: Stable resumed PO Lasix HX HLD: Resumed statin Patient is wheel chair bound. He is able to stand to transfer from the bed to the chair. He would benefit from a sit to stand machine at home to help with care. Code status: Full code per patient DVT prophylaxis: Lovenox Stress ulcer prophylaxis: Protonix 40 daily PT/OT notes: PT/OT pending Disposition: Patient admitted to the medical unit for further evaluation of AMS/hallucinations and tremors vs muscle twitching, neurology consulted and EEG/MRI pending. PT/OT pending but patient usually refuses to go to a SNF had HH prior to admission. Time Spent With Patient Time: 59 minutes Time with patient: Greater than 35 minutes Subjective Date/time seen: 10/09/23 14:33 Interval history: Admission: This is a 63-year-old male with history of strokes, vascular dementia, bipolar disorder, coronary artery disease status post 3 vessel coronary artery bypass, heart failure with preserved ejection fraction, paroxysmal atrial fibrillation not on chronic anticoagulation, peripheral arterial disease, hypertension, chronic kidney disease, chronic anemia, and insulin-dependent type 2 diabetes mellitus who presented to the emergency department for evaluation of altered mental status. The patient is able to provide some history however his provides the majority of the following given his confusion. He was admitted to the hospital about 4 weeks ago after presenting with shortness of breath and abdominal pain. He was treated for congestive heart failure, pneumonia, and cholecystitis status post cholecystostomy tube and was discharged home on Augmentin, Bactrim, and Flagyl. He has been doing pretty well in that regard. Over the last couple of days he has become altered. He is having hallucinations (seeing people around him who are apparently talking about killing people) and behavior disturbances such as anger outbursts in which he threw a table (however states that he does have anger outbursts because he is ?spoiled?). He had some hallucinations while in the hospital however those resolved on discharge and returned recently. She has also noticed that he has occasional an unintentional twitching of the right side of his body and she is wondering if he may be having seizures as he apparently had them when he was younger. At the time of my evaluation he has no complaints and denies fever, headache, chest pain, shortness of breath, cough, abdominal pain, nausea, vomiting, diarrhea, and dysuria. He has not had any falls or head trauma. He is not having any hallucinations at this time and is alert and oriented. 10/08/2023: Assumed Care Patient denied any pain, CP, COB, ABD pain N/V/D or dizziness. IT was reported he has not slept for a few days and still hallucinating was speaking to his who was not in the room during our assessment. Redirected patient that was not present he can answer all questions appropriately is alert and oriented x4. He started on Seroquel 25 mg at night will increase as needed. Patient reports childhood seizures but on no seizure medications neurology consulted for further recs., may need to be started on anticonvulsants medication. 10/09/2023 Patient was pretty somnolent today. Patient was unable to really give too much of an review of systems. Patient's was present. It does appear that the patient would benefit from sit to stand as he is pretty generalized with weakness. Is also noted that he does transfer to wheelchair at home. Review of Systems Review of Systems: All systems reviewed & are unremarkable except as noted in HPI and below Exam Narrative: Physical Exam: * GENERAL: Somnolent in no acute distress * EYES: EOMI. No scleral icterus. PERRLA. * HEENT: Moist mucous membranes. * LUNGS: Clear to auscultation bilaterally. No accessory muscle use. * CARDIOVASCULAR: Regular rate and rhythm. No murmur. No JVD. S1-S2 * ABDOMEN: Soft, non tenderness and non-distended. No palpable masses. * EXTREMITIES: No edema. Non-tender * SKIN: No rashes or lesions. Skin warm, dry. * NEUROLOGIC: No focal neurological deficits. CN II-XII grossly intact * PSYCHIATRIC: Appropriate mood and affect. Good judgement and insight. Objective Data Vital Signs Vital Signs: Vital Signs - 24 hr 10/08/23 17:08 10/08/23 16:00 10/08/23 17:23 Temperature Pulse Rate 68 71 Respiratory Rate Blood Pressure Pulse Oximetry 95 Oxygen Delivery Room Air Oxygen Flow Rate 10/08/23 19:42 10/09/23 03:38 10/08/23 20:00 Temperature 97.9 F 97.6 F Pulse Rate 63 104 H 61 Respiratory Rate 20 22 H Blood Pressure 153/65 H 125/54 L Pulse Oximetry 92 100 Oxygen Delivery Oxygen Flow Rate 10/09/23 00:00 10/09/23 04:00 10/09/23 08:50 Temperature Pulse Rate 56 L 56 L Respiratory Rate Blood Pressure Pulse Oximetry 94 Oxygen Delivery Nasal Cannula Oxygen Flow Rate 2 10/09/23 10:13 10/09/23 10:31 10/09/23 11:03 Temperature Pulse Rate 68 69 Respiratory Rate 18 Blood Pressure 168/69 H Pulse Oximetry 91 94 Oxygen Delivery Nasal Cannula Oxygen Flow Rate 2 10/09/23 08:00 10/09/23 12:00 10/09/23 13:26 Temperature Pulse Rate 63 66 68 Respiratory Rate 12 Blood Pressure 145/59 H Pulse Oximetry 93 Oxygen Delivery Oxygen Flow Rate Intake/Output Intake/Output: Intake & Output 10/06/23 10/07/23 10/08/23 10/09/23 23:59 23:59 23:59 23:59 Intake Total 240 480 360 Output Total 400 1100 300 Balance -160 -620 60 Meds/Results Medications: Active Medications Generic Name Dose Route Start Last Admin Trade Name Freq PRN Reason Stop Dose Admin Acetaminophen 650 mg 10/07/23 14:36 10/08/23 19:42 Acetaminophen 325 Mg Tablet PO 650 mg Q4H PRN Administration Mild Pain (1-3) or Fever Albuterol 2 puff 10/07/23 17:56 Albuterol Sulfate (*Sp) Aerosol 1 Puff INHALATION PRN PRN shortness of breath or wheezing Aspirin 325 mg 10/08/23 09:00 10/09/23 11:03 Aspirin 325 Mg Tablet PO 11/07/23 08:59 325 mg DAILY GEOFFREY Administration Atorvastatin Calcium 80 mg 10/07/23 21:00 10/08/23 19:42 Atorvastatin 40 Mg Tablet PO 80 mg HS GEOFFREY Administration Carvedilol 25 mg 10/08/23 08:00 10/09/23 11:03 Carvedilol 25 Mg Tablet PO 25 mg BIDWM GEOFFREY Administration Clopidogrel Bisulfate 75 mg 10/08/23 09:00 10/09/23 11:04 Clopidogrel Bisulfate 75 Mg Tablet PO 75 mg DAILY GEOFFREY Administration Dextrose 12.5 gm 10/07/23 17:45 Dextrose 50% 25 Gm/50 Ml Syringe IV PUSH PRN PRN Hypoglycemia Protocol Enoxaparin Sodium 40 mg 10/08/23 09:00 10/09/23 11:04 Enoxaparin 40 Mg/0.4 Ml Syringe SUB-Q 40 mg DAILY GEOFFREY Administration Fish Oil 1 gm 10/08/23 09:00 10/09/23 11:04 [place] 3 Polyunsat Fatty Acids 1 Gm Cap PO 11/07/23 08:59 1 gm DAILY GEOFFREY Administration Furosemide 20 mg 10/08/23 09:00 10/09/23 11:04 Furosemide 20 Mg Tablet PO 20 mg DAILY GEOFFREY Administration Gabapentin 100 mg 10/07/23 22:00 10/09/23 13:21 Gabapentin 100 Mg Capsule PO 100 mg Q8HR GEOFFREY Administration Glucagon 1 mg 10/07/23 17:45 Glucagon For Inj 1 Mg Vial IM PRN PRN Hypoglycemia Protocol Glucagon 1 mg 10/08/23 07:27 Glucagon For Inj 1 Mg Vial IM PRN PRN Hypoglycemia Protocol Glucose 15 gm 10/07/23 17:45 Glucose Oral Gel 15 Gm Of Glucse In 37.5 Gm Tube PO PRN PRN Hypoglycemia Protocol Hydralazine HCl 20 mg 10/08/23 07:24 Hydralazine Hcl 20 Mg/Ml Vial IV PUSH Q6HR PRN hypertension Dextrose 1,000 mls @ 100 mls/hr 10/07/23 17:45 Dextrose 5% 1,000 Ml IVPB PRN PRN Hypoglycemia Protocol Insulin Aspart 2 - 5 units 10/08/23 08:00 10/09/23 12:11 Insulin Aspart (*Bkc) 100 Units/Ml SUB-Q Not Given TIDWM GEOFFREY Protocol Levetiracetam 500 mg 10/08/23 21:00 10/09/23 11:04 Levetiracetam 500 Mg Tablet PO 500 mg Q12HR GEOFFREY Administration Melatonin 10 mg 10/07/23 21:00 10/08/23 19:41 Melatonin 5 Mg Tablet PO 10 mg HS GEOFFREY Administration Nifedipine 60 mg 10/08/23 09:00 10/09/23 11:04 Nifedipine 30 Mg Tab.Er.24 PO 60 mg QAM GEOFFREY Administration Ondansetron HCl 4 mg 10/07/23 14:36 Ondansetron Inj 4 Mg/2 Ml Vial IV PUSH Q4H PRN Nausea Pantoprazole Sodium 40 mg 10/08/23 09:00 10/09/23 11:05 Pantoprazole 40 Mg Tablet PO 11/07/23 08:59 40 mg DAILY GEOFFREY Administration Paroxetine HCl 40 mg 10/08/23 09:00 10/09/23 11:05 Paroxetine 20 Mg Tablet PO 40 mg DAILY GEOFFREY Administration Quetiapine Fumarate 25 mg 10/08/23 21:00 10/08/23 19:42 Quetiapine Fumarate 25 Mg Tablet PO 25 mg HS GEOFFREY Administration Ramipril 10 mg 10/08/23 09:00 10/09/23 11:05 Ramipril 5 Mg Capsule PO 10 mg DAILY GEOFFREY Administration Radiology Results: ITS Impressions Head CT 10/07/23 14:07 IMPRESSION: No acute intracranial findings. Abdomen Ultrasound 10/07/23 16:04 IMPRESSION: 1. Nonvisualization of the gallbladder and pancreas. Otherwise, Unremarkable limited ultrasound of the abdomen. Brain MRI 10/08/23 08:09 IMPRESSION: 1. No acute intracranial process. 2. No abnormal enhancement. 3. Old lacunar infarcts in the right cam radiata and centrum semiovale. Old lacunar infarcts in the jamie. Labs Labs: Laboratory Results - last 24 hr 10/08/23 10/08/23 10/09/23 17:00 19:49 02:56 WBC RBC Hgb Hct MCV MCH MCHC RDW Plt Count MPV Sodium Potassium Chloride Carbon Dioxide Anion Gap BUN Creatinine Estim Creat Clear Calc Estimated GFR Glucose POC Capillary Glucose 122 H 108 H 86 Calcium Magnesium Total Bilirubin AST ALT Alkaline Phosphatase Total Protein Albumin 10/09/23 10/09/23 10/09/23 06:18 06:54 07:49 WBC 7.0 RBC 3.85 L Hgb 10.3 L Hct 34.2 L MCV 88.8 MCH 26.8 MCHC 30.1 L RDW 15.1 H Plt Count 311 MPV 11.7 H Sodium 136 L Potassium 4.9 Chloride 102 Carbon Dioxide 27 Anion Gap 7 BUN 22 H Creatinine 1.50 H Estim Creat Clear Calc 47 Estimated GFR 47 L Glucose 99 POC Capillary Glucose 99 102 Calcium 8.4 Magnesium 1.8 Total Bilirubin 0.5 AST 21 ALT 8 Alkaline Phosphatase 94 Total Protein 7.0 Albumin 3.2 L 10/09/23 11:46 WBC RBC Hgb Hct MCV MCH MCHC RDW Plt Count MPV Sodium Potassium Chloride Carbon Dioxide Anion Gap BUN Creatinine Estim Creat Clear Calc Estimated GFR Glucose POC Capillary Glucose 97 Calcium Magnesium Total Bilirubin AST ALT Alkaline Phosphatase Total Protein Albumin Quality VTE Prophylaxis VTE prophylaxis: pharmacologic ordered Hospitalist [facility] Advance Care Plan I have confirmed that the patient's Advanced Care Plan is present, code status is documented, or surrogate decision maker is listed in patient medical record.: Yes Medication Reconciliation I have utilized all available resources to obtain, update and review the patients current medications (includes all prescriptions, OTC, herbals, cannabis, and nutritional supplements).: Yes
[2023-10-09 16:48] LABS: Glucose Point of Care 110 mg/dl (65-105)
[2023-10-09] MEDS: SODIUM CHLORIDE 0.9% IV 1,000 ML 100 ML IV CONT (17:47)
[2023-10-09] MEDS: MELATONIN 5 MG TABLET 10 MG PO (20:17)
[2023-10-09] MEDS: ATORVASTATIN 40 MG TABLET 80 MG PO (20:18)
[2023-10-09 20:59] LABS: Glucose Point of Care 91 mg/dl (65-105)
[2023-10-10] VITALS (17 sets, daily range): BP systolic 131–174; BP diastolic 55–65; PULSE 61–75; RESP 19–20; TEMP 36.4–37.1; O2SAT 82–98
[2023-10-10] MEDS: SODIUM CHLORIDE 0.9% IV 1,000 ML 100 ML IV CONT ×2 (04:30→18:43)
[2023-10-10] MEDS: GABAPENTIN 100 MG CAPSULE PO ×2 (05:27→13:46)
[2023-10-10 05:53] LABS: Hematocrit 34.4 % (42.0-52.0); Hemoglobin 10.5 g/dL (14.0-18.0); Mean Corpuscular HGB Conc 30.5 g/dl (32-36); Mean Corpuscular Hemoglobin 27.3 pg (26-34); Mean Corpuscular Volume 89.4 fl (80-100); Mean Platelet Volume 11.2 fl (7.4-10.4); Platelet Count Result 310 k/mm3 (150-375); Red Blood Count 3.85 M/mm3 (4.6-6.20); Red Cell Distribution Width 15.1 % (11.5-14.5)
[2023-10-10 06:09] LABS: Alanine Aminotransferase 9 U/L (6-50); Albumin Level 3.1 g/dL (3.5-5.1); Alkaline Phosphatase 106 U/L (38-126); Anion Gap 8 mmol/L (4-12); Aspartate Amino Transferase 20 U/L (17-59); Bilirubin,Total 0.4 mg/dL (0.2-1.3); Blood Urea Nitrogen 21 mg/dL (9-20); Calcium 8.4 mg/dL (8.4-10.2); Carbon Dioxide 25 mmol/L (22-30); Chloride 104 mmol/L (98-107); Estimated CRCL calculation 47 ml/min; Estimated Glomerular Filt Rate 47; Glucose 89 mg/dL (65-110); Potassium 4.5 mmol/L (3.4-5.0); Sodium 137 mmol/L (137-145)
[2023-10-10 08:21] LABS: Glucose Point of Care 92 mg/dl (65-105)
[2023-10-10] MEDS: carvediloL 25 MG TABLET PO ×2 (09:33→17:17)
[2023-10-10] MEDS: ramipriL 5 MG CAPSULE 10 MG PO (09:33)
[2023-10-10] MEDS: NIFEdipine 30 MG TAB.ER.24 60 MG PO (09:33)
[2023-10-10] MEDS: FUROSEMIDE 20 MG TABLET PO (09:33)
[2023-10-10] MEDS: OMEGA 3 POLYUNSAT FATTY ACIDS 1 GM CAP PO (09:33)
[2023-10-10] MEDS: PANTOPRAZOLE 40 MG TABLET PO (09:33)
[2023-10-10] MEDS: PARoxetine 20 MG TABLET 40 MG PO (09:33)
[2023-10-10] MEDS: CLOPIDOGREL BISULFATE 75 MG TABLET PO (09:33)
[2023-10-10] MEDS: ASPIRIN 325 MG TABLET PO (09:33)
[2023-10-10] MEDS: ENOXAPARIN 40 MG/0.4 ML SYRINGE SUB-Q (09:34)
[2023-10-10] MEDS: levETIRAcetam 500 MG TABLET PO ×2 (09:34→20:32)
--- NOTE | 2023-10-10 09:54 | P.DS_ITS ---
DS: Admitting Diagnosis Discharge Date 10/10/2023 0800 Admitting Diagnosis Acute metabolic encephalopathy DS: Discharge Diagnosis Discharge Diagnosis (1) Hallucinations, visual: Code(s): R44.1 - Visual hallucinations Status: Acute (2) Muscle twitching: Code(s): R25.3 - Fasciculation Status: Acute (3) Heart failure with preserved ejection fraction: Qualifiers: Heart failure chronicity: acute on chronic Qualified Code(s): I50.33 - Acute on chronic diastolic (congestive) heart failure Code(s): I50.30 - Unspecified diastolic (congestive) heart failure Status: Acute (4) Hypertension: Qualifiers: Hypertension type: unspecified Qualified Code(s): I10 - Essential (primary) hypertension Code(s): I10 - Essential (primary) hypertension Status: Chronic (5) Insulin dependent type 2 diabetes mellitus: Code(s): E11.9 - Type 2 diabetes mellitus without complications; Z79.4 - USP (current) use of insulin Status: Chronic (6) Paroxysmal atrial fibrillation: Code(s): I48.0 - Paroxysmal atrial fibrillation Status: Acute (7) Vascular dementia: Code(s): F01.50 - Vascular dementia, unspecified severity, without behavioral disturbance, psychotic disturbance, mood disturbance, and anxiety Status: Acute (8) Chronic anemia: Code(s): D64.9 - Anemia, unspecified Status: Acute (9) Altered mental status: Code(s): R41.82 - Altered mental status, unspecified Status: Acute (10) Acute kidney injury superimposed on CKD: Code(s): N17.9 - Acute kidney failure, unspecified; N18.9 - Chronic kidney disease, unspecified Status: Acute Plan Hallucinations/AMS * Possible multiple causes: Hypoglycemia stopped glipizide * Vascular Dementia * reported he has not slept for a few days * DC Seroquel as he has not woke up yet * PO2 on ABG showed 57.1 on 1 L NC * ammonia <9 * UA negative * CXR with no acute process * Normal WBC * reports non-compliance to medication muscle twitching * CT head with no acute intracranial process * EEG pending * MRI Old infarct noted * Neurology consulted appreciate any new recommendations * Childhood seizures * No anticonvulsants medications currently chronic renal failure * CR 1.5 POA baseline 2.00 * Avoid nephrotoxic drugs. * Monitor antihypertensive drug therapy. * Avoid NSAIDs. * Routine CMP monitoring GFR. * Monitor electrolytes especially potassium. HTN * Hypertensive * Resumed Coreg and ramipril and Procardia * add hydralazine IVP systolic >160 * Currently 145/59 Diabetes * Accu-Cheks a.c. HS * sliding scale insulin * Discontinue the use of glipizide HX of CKD * Diabetic diet * consult to dietitian * encourage lifestyle modifications and weight loss * Optimize Onel inhibitors and statins. * Watch for hypoglycemia/hypoglycemic protocol ordered * Current glucose 99 HX Anemia: Stable Hgb 11 HX Dementia HX of GERD: resumed PPI HX CHF: Stable resumed PO Lasix HX HLD: Resumed statin Patient is wheel chair bound. He is able to stand to transfer from the bed to the chair. He would benefit from a sit to stand machine at home to help with care. Code status: Full code per patient DVT prophylaxis: Lovenox Stress ulcer prophylaxis: Protonix 40 daily PT/OT notes: PT/OT pending Disposition: Patient admitted to the medical unit for further evaluation of AMS/hallucinations and tremors vs muscle twitching, neurology consulted and EEG/MRI pending. PT/OT pending but patient usually refuses to go to a SNF had HH prior to admission. DS: Summary Hospital Course Hospital Course: Patient is 7-year-old male with past medical history of strokes, dementia, bipolar, CAD with 3 coronary vessel bypass, heart failure, AFib, hypertension, CKD, chronic anemia, insulin dependent diabetes, bipolar disorder who presented the ED with altered mental status. Patient was started on Seroquel and did sleep for greater than 24 hours and is currently doing okay today. He denies any current chest pain, shortness a breath, nausea, vomiting, diarrhea constipation. General surgery was consulted as he does have a cholecystectomy tube. He will need to follow-up outpatient. Neurology was also consulted. Head CT was negative for any acute findings. MRI of the brain was negative for any acute process as well did show some old lacunar infarcts. Currently patient is doing well sitting up in the chair. He denies any current problems or needs. Patient will discharge home with his . He is currently stable for discharge for labs and vital signs. Status at Discharge Functional status at discharge: wheelchair bound Overall status at discharge: patient is progressing back to baseline Time Spent with Patient Time attestation: Total time spent providing and/or coordinating discharge services: 39 minutes Time spent: Greater than 30 minutes Specific discharge activities: Diagnostic testing, chart review, developing a treatment plan, education, care coordination documentation, physical exam, result review Exam Narrative: Physical Exam: * GENERAL: Somnolent in no acute distress * EYES: EOMI. No scleral icterus. PERRLA. * HEENT: Moist mucous membranes. * LUNGS: Clear to auscultation bilaterally. No accessory muscle use. * CARDIOVASCULAR: Regular rate and rhythm. No murmur. No JVD. S1-S2 * ABDOMEN: Soft, non tenderness and non-distended. No palpable masses. * EXTREMITIES: No edema. Non-tender * SKIN: No rashes or lesions. Skin warm, dry. * NEUROLOGIC: No focal neurological deficits. CN II-XII grossly intact * PSYCHIATRIC: Appropriate mood and affect. Good judgement and insight. DS: Data Data Completed and Pending Labs on day of discharge: Labs from last 24 hours 10/10/23 10/10/23 10/09/23 08:10 05:07 19:39 WBC 9.0 RBC 3.85 L Hgb 10.5 L Hct 34.4 L MCV 89.4 MCH 27.3 MCHC 30.5 L RDW 15.1 H Plt Count 310 MPV 11.2 H Sodium 137 Potassium 4.5 Chloride 104 Carbon Dioxide 25 Anion Gap 8 BUN 21 H Creatinine 1.50 H Estim Creat Clear Calc 47 Estimated GFR 47 L Glucose 89 POC Capillary Glucose 92 91 Calcium 8.4 Total Bilirubin 0.4 AST 20 ALT 9 Alkaline Phosphatase 106 Total Protein 7.0 Albumin 3.1 L 10/09/23 10/09/23 16:41 11:46 WBC RBC Hgb Hct MCV MCH MCHC RDW Plt Count MPV Sodium Potassium Chloride Carbon Dioxide Anion Gap BUN Creatinine Estim Creat Clear Calc Estimated GFR Glucose POC Capillary Glucose 110 H 97 Calcium Total Bilirubin AST ALT Alkaline Phosphatase Total Protein Albumin Discharge Plan Discharge Attending physician on discharge: Kvng Disla Consulting providers: Magda Deluna; Matt Yusuf Discharging Clinician: Mahamed Sewell Patient Disposition: Home, Self-Care Activity: may shower, unlimited and as tolerated Diet: diabetic, low sodium and low fat Discharge Instructions: * Discharge disposition: Home * Take medications as prescribed * Monitor blood pressures * Avoid social areas, you wear a mask when in social settings * Encouraged to continue with yearly vaccinations * If you developed sudden shortness of breath, chest pain, nausea, vomiting, upset stomach or intractable diarrhea * Return to the emergency department if you develop fever greater than 101.5 * Follow-up with the primary care physician within 1-2 weeks * Thank you for [facility] for your healthcare needs Patient Instructions: Antibiotic Form, Heart Failure (ED) Stand Alone Forms: General Discharge Information Follow-up/Referrals: Magda Deluna MD [Physician] - Call for Appointment Sharmila,Shane Miranda MD [Primary Care Provider] - Call for Appointment Matt Yusuf MD [Physician] - Call for Appointment Discharge Medications: New levetiracetam [Keppra] 500 mg Tablet 500 mg PO Q12HR Qty: 60 0RF Continued paroxetine HCl 20 mg tablet 40 mg PO DAILY omeprazole 20 mg capsule,delayed release(DR/EC) 20 mg PO DAILY ramipril 10 mg capsule 10 mg PO DAILY Hold Instructions: Hold this medicine and speak with your family doctor if you are to resume. glipizide 5 mg tablet 10 mg PO BID Patient Comments: out 2-3 days ago unable to refill until dr appointment on october 01 clopidogrel 75 mg tablet 75 mg PO DAILY Patient Comments: pt ran out of meds about 2-3 days ago informed physician reported needed to wait until appointment on october 01 to get med refilled aspirin 325 mg Capsule 325 mg PO DAILY guaifenesin [Mucus Relief ER] 600 mg Tablet Extended Release 12hr 1,200 mg PO Q12HR Qty: 14 0RF atorvastatin 80 mg Tablet 80 mg PO HS 30 Days Qty: 30 0RF melatonin 3 mg tablet 10 mg PO HS insulin lispro 100 unit/mL Insulin Pen 1 sliding scale dose SUBCUT USEASDIRECTD Rx Instructions: pt does have home sliding scale doesn't need often sugars are controlled carvedilol [Coreg] 25 mg Tablet 25 mg PO BIDWM Qty: 60 0RF furosemide 20 mg tablet 20 mg PO DAILY Qty: 30 0RF nifedipine [Procardia XL] 30 mg Tablet Extended Release 24hr 60 mg PO QAM Qty: 30 0RF albuterol sulfate 90 mcg/actuation HFA aerosol inhaler 2 puff inhalation PRN PRN (Reason: shortness of breath or wheezing) omega [id number]-fish oil [Fish Oil] 60-90-500 mg Capsule 1 cap PO DAILY gabapentin 100 mg Capsule 100 mg PO TID Qty: 90 0RF Date of admission: 10/07/23 14:37 Primary Care Provider: Sharmila,Shane Miranda Admitting Provider: Brennan Barrett Attending physician on admission: Amarilys Johnston Condition: Stable Quality VTE Prophylaxis VTE prophylaxis: pharmacologic ordered Hospitalist MIPS Heart Failure (Exclusion) Patient has history of Heart Transplant or Left Ventricular Assistive Device?: No IF YES, STOP HERE Heart Failure (Qualifier) Patient has current or prior documentation of LVEF less than or equal to 40%, or mod/servere depressed LVSF?: No IF NO, STOP HERE
--- NOTE | 2023-10-10 11:45 | PCPTNOTE ---
On 10/10/23, the student, [Zeynep Walker], provided care and completed [facility] documentation on this patient. I have reviewed the student's documentation and agree with the findings.
[2023-10-10 11:58] LABS: Glucose Point of Care 226 mg/dl (65-105)
[2023-10-10] MEDS: INSULIN ASPART (*BKC) 100 UNITS/ML SUB-Q (12:05)
[2023-10-10] MEDS: FUROSEMIDE INJ 40 MG/4 ML VIAL 20 MG IV PUSH (14:36)
--- NOTE | 2023-10-10 16:15 | PC.NURSE ---
During home O2 evaluation, pt required increase in oxygen to 6L HFNC- pt satting only 88%. Placed on 7L and now oxygen saturation is 92% while resting in bed. Patient noted to have coarse lung sounds and coughing. Respiratory therapist recommends apnea link. Madhu SOLORIO notified and received orders for stat chest xray and apnea link
--- NOTE | 2023-10-10 16:23 | PCRCNOTE ---
HOME O2 EVAL ATTEMPTED. PT FOUND ON 2L SAO2 82% INCREASED O2 TO 6L, SAO2 88%. RN NOTIFIED AND CALL OUT TO CHRIS DANIELSON
--- NOTE | 2023-10-10 17:01 | P.PNIM_ITS ---
Progress Note: A&P Assessment and Plan (1) Acute hypoxemic respiratory failure: Code(s): J96.01 - Acute respiratory failure with hypoxia Status: Acute (2) Hallucinations, visual: Code(s): R44.1 - Visual hallucinations Status: Acute (3) Heart failure with preserved ejection fraction: Qualifiers: Heart failure chronicity: acute on chronic Qualified Code(s): I50.33 - Acute on chronic diastolic (congestive) heart failure Code(s): I50.30 - Unspecified diastolic (congestive) heart failure Status: Acute (4) Hypertension: Qualifiers: Hypertension type: unspecified Qualified Code(s): I10 - Essential (primary) hypertension Code(s): I10 - Essential (primary) hypertension Status: Chronic (5) Insulin dependent type 2 diabetes mellitus: Code(s): E11.9 - Type 2 diabetes mellitus without complications; Z79.4 - 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) use of insulin Status: Chronic (6) Paroxysmal atrial fibrillation: Code(s): I48.0 - Paroxysmal atrial fibrillation Status: Acute (7) Vascular dementia: Code(s): F01.50 - Vascular dementia, unspecified severity, without behavioral disturbance, psychotic disturbance, mood disturbance, and anxiety Status: Acute (8) Chronic anemia: Code(s): D64.9 - Anemia, unspecified Status: Acute (9) Altered mental status: Code(s): R41.82 - Altered mental status, unspecified Status: Acute (10) Acute kidney injury superimposed on CKD: Code(s): N17.9 - Acute kidney failure, unspecified; N18.9 - Chronic kidney disease, unspecified Status: Acute Plan Acute Hypoxic respiratory failure * Found to have coarse rhonchi with sats in the mid 80s * Chest xray with atelectasis, pleural effusion, possible infection * Start empiric antibiotics azithro and ceftriaxone * Incentive spirometer * Supplemental oxygen wean to maintain saturations >90 % * apnea link ordered * Trend respiratory status * ABG ordered PNA VS CHF VS atelectasis * See above Hallucinations/AMS * Possible multiple causes: Hypoglycemia stopped glipizide * Vascular Dementia * reported he has not slept for a few days * DC Seroquel as he has not woke up yet * PO2 on ABG showed 57.1 on 1 L NC * ammonia <9 * UA negative * CXR with no acute process * Normal WBC * reports non-compliance to medication muscle twitching * CT head with no acute intracranial process * EEG pending * MRI Old infarct noted * Neurology consulted appreciate any new recommendations * Childhood seizures * No anticonvulsants medications currently chronic renal failure * CR 1.5 POA baseline 2.00 * Avoid nephrotoxic drugs. * Monitor antihypertensive drug therapy. * Avoid NSAIDs. * Routine CMP monitoring GFR. * Monitor electrolytes especially potassium. HTN * Hypertensive * Resumed Coreg and ramipril and Procardia * add hydralazine IVP systolic >160 * Currently 145/59 Diabetes * Accu-Cheks a.c. HS * sliding scale insulin * Discontinue the use of glipizide HX of CKD * Diabetic diet * consult to dietitian * encourage lifestyle modifications and weight loss * Optimize Onel inhibitors and statins. * Watch for hypoglycemia/hypoglycemic protocol ordered * Current glucose 99 HX Anemia: Stable Hgb 11 HX Dementia HX of GERD: resumed PPI HX CHF: Stable resumed PO Lasix HX HLD: Resumed statin Patient is wheel chair bound. He is able to stand to transfer from the bed to the chair. He would benefit from a sit to stand machine at home to help with care. Code status: Full code per patient DVT prophylaxis: Lovenox Stress ulcer prophylaxis: Protonix 40 daily PT/OT notes: PT/OT pending Disposition: Patient admitted to the medical unit for further evaluation of AMS/hallucinations and tremors vs muscle twitching, neurology consulted and EEG/MRI pending. PT/OT pending but patient usually refuses to go to a SNF had HH prior to admission. Time Spent With Patient Time: 56 minutes Time with patient: Greater than 35 minutes Subjective Date/time seen: 10/10/23 17:01 Interval history: Admission: This is a 63-year-old male with history of strokes, vascular dementia, bipolar disorder, coronary artery disease status post 3 vessel coronary artery bypass, heart failure with preserved ejection fraction, paroxysmal atrial fibrillation not on chronic anticoagulation, peripheral arterial disease, hypertension, chronic kidney disease, chronic anemia, and insulin-dependent type 2 diabetes mellitus who presented to the emergency department for evaluation of altered mental status. The patient is able to provide some history however his provides the majority of the following given his confusion. He was admitted to the hospital about 4 weeks ago after presenting with shortness of breath and abdominal pain. He was treated for congestive heart failure, pneumonia, and cholecystitis status post cholecystostomy tube and was discharged home on Augmentin, Bactrim, and Flagyl. He has been doing pretty well in that regard. Over the last couple of days he has become altered. He is having hallucinations (seeing people around him who are apparently talking about killing people) and behavior disturbances such as anger outbursts in which he threw a table (however states that he does have anger outbursts because he is ?spoiled?). He had some hallucinations while in the hospital however those resolved on discharge and returned recently. She has also noticed that he has occasional an unintentional twitching of the right side of his body and she is wondering if he may be having seizures as he apparently had them when he was younger. At the vj e of my evaluation he has no complaints and denies fever, headache, chest pain, shortness of breath, cough, abdominal pain, nausea, vomiting, diarrhea, and dysuria. He has not had any falls or head trauma. He is not having any hallucinations at this time and is alert and oriented. 10/08/2023: Assumed Care Patient denied any pain, CP, COB, ABD pain N/V/D or dizziness. IT was reported he has not slept for a few days and still hallucinating was speaking to his who was not in the room during our assessment. Redirected patient that was not present he can answer all questions appropriately is alert and oriented x4. He started on Seroquel 25 mg at night will increase as needed. Patient reports childhood seizures but on no seizure medications neurology consulted for further recs., may need to be started on anticonvulsants medication. 10/09/2023 Patient was pretty somnolent today. Patient was unable to really give too much of an review of systems. Patient's was present. It does appear that the patient would benefit from sit to stand as he is pretty generalized with weakness. Is also noted that he does transfer to wheelchair at home. 10/10/2023 Patient was resting comfortably. It was reported that the patient was requiring 4LNC. Home oxygen was ordered and noted further need in oxygen. He denies any current complaints. He was alert and oriented. He denies any chest pain, shortness of breath, nausea, vomiting, diarrhea, or constipation. 1630 this afternoon it was reported that the patient had rhonchi noted. He was also coughing more. chest xray was ordered. He is also requiring 6L high flow cannula. It was noted that through the evaluation he was sating mid 80s. He finally recovered with the 6 L high flow sating at 93%. It was noted that he was awake through the eval. Review of Systems Review of Systems: All systems reviewed & are unremarkable except as noted in HPI and below Exam Narrative: Physical Exam: * GENERAL: Somnolent in no acute distress * EYES: EOMI. No scleral icterus. PERRLA. * HEENT: Moist mucous membranes. * LUNGS: Rhonchi throughout, Cough noted * CARDIOVASCULAR: Regular rate and rhythm. No murmur. No JVD. S1-S2 * ABDOMEN: Soft, non tenderness and non-distended. No palpable masses. * EXTREMITIES: No edema. Non-tender * SKIN: No rashes or lesions. Skin warm, dry. * NEUROLOGIC: No focal neurological deficits. CN II-XII grossly intact * PSYCHIATRIC: Appropriate mood and affect. Good judgement and insight. Objective Data Vital Signs Vital Signs: Vital Signs - 24 hr 10/09/23 17:19 10/09/23 19:14 10/09/23 20:00 Temperature 97.3 F L Pulse Rate 58 L 62 Respiratory Rate 16 Blood Pressure 184/90 H Pulse Oximetry 92 93 Oxygen Delivery Nasal Cannula Oxygen Flow Rate 4 Fraction of Inspired Oxygen 10/09/23 20:00 10/10/23 00:00 10/10/23 04:00 Temperature Pulse Rate 62 61 64 Respiratory Rate Blood Pressure Pulse Oximetry Oxygen Delivery Oxygen Flow Rate Fraction of Inspired Oxygen 10/10/23 05:10 10/10/23 07:52 10/10/23 07:50 Temperature 98.6 F Pulse Rate 69 Respiratory Rate 20 Blood Pressure 131/65 Pulse Oximetry 96 92 Oxygen Delivery Nasal Cannula Nasal Cannula Oxygen Flow Rate 4 4 Fraction of Inspired Oxygen 36 10/10/23 08:00 10/10/23 08:27 10/10/23 09:33 Temperature Pulse Rate 67 63 Respiratory Rate Blood Pressure Pulse Oximetry Oxygen Delivery Nasal Cannula Oxygen Flow Rate 4 Fraction of Inspired Oxygen 10/10/23 08:00 10/10/23 12:00 10/10/23 16:00 Temperature Pulse Rate 75 69 Respiratory Rate Blood Pressure Pulse Oximetry 92 Oxygen Delivery Nasal Cannula Oxygen Flow Rate 4 Fraction of Inspired Oxygen 10/10/23 14:00 10/10/23 16:25 Temperature 97.6 F Pulse Rate 72 Respiratory Rate 19 Blood Pressure 174/60 H Pulse Oximetry 94 98 Oxygen Delivery High Flow Nasal Cannula Oxygen Flow Rate 5 Fraction of Inspired Oxygen Intake/Output Intake/Output: Intake & Output 10/07/23 10/08/23 10/09/23 10/10/23 23:59 23:59 23:59 23:59 Intake Total 240 810 275 8555 Output Total 400 1100 875 750 Balance -160 -620 -515 1032 Meds/Results Medications: Active Medications Generic Name Dose Route Start Last Admin Trade Name Freq PRN Reason Stop Dose Admin Acetaminophen 650 mg 10/07/23 14:36 10/08/23 19:42 Acetaminophen 325 Mg Tablet PO 650 mg Q4H PRN Administration Mild Pain (1-3) or Fever Albuterol 2 puff 10/07/23 17:56 Albuterol Sulfate (*Sp) Aerosol 1 Puff INHALATION PRN PRN shortness of breath or wheezing Aspirin 325 mg 10/08/23 09:00 10/10/23 09:33 Aspirin 325 Mg Tablet PO 11/07/23 08:59 325 mg DAILY GEOFFREY Administration Atorvastatin Calcium 80 mg 10/07/23 21:00 10/09/23 20:18 Atorvastatin 40 Mg Tablet PO 80 mg HS GEOFFREY Administration Carvedilol 25 mg 10/08/23 08:00 10/10/23 09:33 Carvedilol 25 Mg Tablet PO 25 mg BIDWM GEOFFREY Administration Clopidogrel Bisulfate 75 mg 10/08/23 09:00 10/10/23 09:33 Clopidogrel Bisulfate 75 Mg Tablet PO 75 mg DAILY GEOFFREY Administration Dextrose 12.5 gm 10/07/23 17:45 Dextrose 50% 25 Gm/50 Ml Syringe IV PUSH PRN PRN Hypoglycemia Protocol Enoxaparin Sodium 40 mg 10/08/23 09:00 10/10/23 09:34 Enoxaparin 40 Mg/0.4 Ml Syringe SUB-Q 40 mg DAILY GEOFFREY Administration Fish Oil 1 gm 10/08/23 09:00 10/10/23 09:33 [place] 3 Polyunsat Fatty Acids 1 Gm Cap PO 11/07/23 08:59 1 gm DAILY GEOFFREY Administration Furosemide 20 mg 10/08/23 09:00 10/10/23 09:33 Furosemide 20 Mg Tablet PO 20 mg DAILY GEOFFREY Administration Gabapentin 100 mg 10/07/23 22:00 10/10/23 13:46 Gabapentin 100 Mg Capsule PO 100 mg Q8HR GEOFFREY Administration Glucagon 1 mg 10/07/23 17:45 Glucagon For Inj 1 Mg Vial IM PRN PRN Hypoglycemia Protocol Glucagon 1 mg 10/08/23 07:27 Glucagon For Inj 1 Mg Vial IM PRN PRN Hypoglycemia Protocol Glucose 15 gm 10/07/23 17:45 Glucose Oral Gel 15 Gm Of Glucse In 37.5 Gm Tube PO PRN PRN Hypoglycemia Protocol Hydralazine HCl 20 mg 10/08/23 07:24 Hydralazine Hcl 20 Mg/Ml Vial IV PUSH Q6HR PRN hypertension Dextrose 1,000 mls @ 100 mls/hr 10/07/23 17:45 Dextrose 5% 1,000 Ml IVPB PRN PRN Hypoglycemia Protocol Sodium Chloride 1,000 mls @ 100 mls/hr 10/09/23 17:20 10/10/23 04:30 Normal Saline Iv IV CONT 100 mls/hr .Q10H GEOFFREY Administration Insulin Aspart 2 - 5 units 10/08/23 08:00 10/10/23 12:05 Insulin Aspart (*Bkc) 100 Units/Ml SUB-Q 2 units TIDWM GEOFFREY Administration Protocol Levetiracetam 500 mg 10/08/23 21:00 10/10/23 09:34 Levetiracetam 500 Mg Tablet PO 500 mg Q12HR GEOFFREY Administration Melatonin 10 mg 10/07/23 21:00 10/09/23 20:17 Melatonin 5 Mg Tablet PO 10 mg HS GEOFFREY Administration Nifedipine 60 mg 10/08/23 09:00 10/10/23 09:33 Nifedipine 30 Mg Tab.Er.24 PO 60 mg QAM GEOFFREY Administration Ondansetron HCl 4 mg 10/07/23 14:36 Ondansetron Inj 4 Mg/2 Ml Vial IV PUSH Q4H PRN Nausea Pantoprazole Sodium 40 mg 10/08/23 09:00 10/10/23 09:33 Pantoprazole 40 Mg Tablet PO 11/07/23 08:59 40 mg DAILY GEOFFREY Administration Paroxetine HCl 40 mg 10/08/23 09:00 10/10/23 09:33 Paroxetine 20 Mg Tablet PO 40 mg DAILY GEOFFREY Administration Ramipril 10 mg 10/08/23 09:00 10/10/23 09:33 Ramipril 5 Mg Capsule PO 10 mg DAILY GEOFFREY Administration Radiology Results: ITS Impressions Head CT 10/07/23 14:07 IMPRESSION: No acute intracranial findings. Abdomen Ultrasound 10/07/23 16:04 IMPRESSION: 1. Nonvisualization of the gallbladder and pancreas. Otherwise, Unremarkable limited ultrasound of the abdomen. Brain MRI 10/08/23 08:09 IMPRESSION: 1. No acute intracranial process. 2. No abnormal enhancement. 3. Old lacunar infarcts in the right cam radiata and centrum semiovale. Old lacunar infarcts in the jamie. Chest X-Ray 10/10/23 16:44 IMPRESSION: Presumed discoid atelectasis in the right midlung. Streaky left basilar atelectasis/scar. Small left pleural effusion. Infection is not excluded. Labs Labs: Laboratory Results - last 24 hr 10/09/23 10/10/23 10/10/23 19:39 05:07 08:10 WBC 9.0 RBC 3.85 L Hgb 10.5 L Hct 34.4 L MCV 89.4 MCH 27.3 MCHC 30.5 L RDW 15.1 H Plt Count 310 MPV 11.2 H Sodium 137 Potassium 4.5 Chloride 104 Carbon Dioxide 25 Anion Gap 8 BUN 21 H Creatinine 1.50 H Estim Creat Clear Calc 47 Estimated GFR 47 L Glucose 89 POC Capillary Glucose 91 92 Calcium 8.4 Total Bilirubin 0.4 AST 20 ALT 9 Alkaline Phosphatase 106 Total Protein 7.0 Albumin 3.1 L 10/10/23 11:49 WBC RBC Hgb Hct MCV MCH MCHC RDW Plt Count MPV Sodium Potassium Chloride Carbon Dioxide Anion Gap BUN Creatinine Estim Creat Clear Calc Estimated GFR Glucose POC Capillary Glucose 226 H Calcium Total Bilirubin AST ALT Alkaline Phosphatase Total Protein Albumin Hospitalist MIPS Advance Care Plan I have confirmed that the patient's Advanced Care Plan is present, code status is documented, or surrogate decision maker is listed in patient medical record.: Yes Medication Reconciliation I have utilized all available resources to obtain, update and review the patients current medications (includes all prescriptions, OTC, herbals, cannabis, and nutritional supplements).: Yes
[2023-10-10 17:13] LABS: Glucose Point of Care 189 mg/dl (65-105)
[2023-10-10 17:29] LABS: Alveolar/Arterial O2 Gradient 185.7 mmHg; Base Excess ABG 0.4 mEq/l (+/-2.0); Fractional Inspired Oxygen 40 %; HCO3 ABG 24.7 mEq/l (22.0-26.0); Methemoglobin ABG 0.2 %THb (0-1.5); Oxygen Content ABG 12.5 %vol (16.0-22.0); Oxygen Saturation ABG 89.5 % (95.0-100.0); Oxyhemoglobin 87.6 % THb (90.0-100.0); PCO2 ABG 38.6 mmHg (35.0-45.0); PO2 ABG 55.1 mmHg (80.0-100.0); PO2 FiO2 Ratio Arterial Blood 1.38 %; Reduced Hemoglobin 12.2 %THb (0-5.0); Site Drawn RIGHT BRACHIAL; Total Hemoglobin 10.1 g/dL (12.0-18.0); pH ABG 7.424 (7.350-7.450)
[2023-10-10 17:30] LABS: Device HIGH FLOW NASAL CANN
--- NOTE | 2023-10-10 18:29 | P.PNNEUR_ITS ---
Progress Note: A&P Assessment and Plan (1) Seizure disorder: Code(s): G40.909 - Epilepsy, unspecified, not intractable, without status epilepticus Status: Acute (2) Hallucinations, visual: Code(s): R44.1 - Visual hallucinations Status: Acute (3) Vascular dementia: Code(s): F01.50 - Vascular dementia, unspecified severity, without behavioral disturbance, psychotic disturbance, mood disturbance, and anxiety Status: Acute (4) Hypertension: Qualifiers: Hypertension type: unspecified Qualified Code(s): I10 - Essential (primary) hypertension Code(s): I10 - Essential (primary) hypertension Status: Chronic (5) Insulin dependent type 2 diabetes mellitus: Code(s): E11.9 - Type 2 diabetes mellitus without complications; 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 The etiology of her visual hallucinations and unclear and may be due to metabolic problem. He has a history of vascular dementia. EEG findings were also reviewed. He is already on antiplatelets and statins and also Keppra which may be continued. Subjective Date/time seen: 10/10/23 18:29 Interval history: The patient is stroke and residual left-sided weakness presented with hallucinations and change in mental status. He is also suspected of having seizures and has now been started on anticonvulsants he is stable and doing fair. He is also being investigated for possible sleep apnea syndrome. Patient's was present and gave me a description of what happened. has had multiple strokes in the past. Review of Systems Review of Systems: Sleepy and tired during the daytime. He is being investigated for possible sleep apnea syndrome. All systems reviewed & are unremarkable except as noted in HPI and below Exam Narrative: Fully conscious alert no aphasia or dysarthria. He is able to answer to questions most of the time. He did follow 1 and two-step command. Three object recall was 2/3. He was able to name 5 colors and 5 cities. He has a appears a mild cognitive slowing. A exam head and neck was unremarkable. No carotid bruit. Cranial nerves range of testing did not show any significant abnormalities. Moderate weakness of the left upper limb power grade 3 to 4/5 left lower limb power grade 4 +or 5 deep tendon reflexes are brisk on the left than right side but overall appeared brisk on both sides. Some spasticity in the left arm. Objective Data Vital Signs Vital Signs: Vital Signs - 24 hr 10/09/23 19:14 10/09/23 20:00 10/09/23 20:00 Temperature 36.3 C L Pulse Rate 62 62 Respiratory Rate 16 Blood Pressure 184/90 H Pulse Oximetry 92 93 Oxygen Delivery Nasal Cannula Oxygen Flow Rate 4 Fraction of Inspired Oxygen 10/10/23 00:00 10/10/23 04:00 10/10/23 05:10 Temperature 37.0 C Pulse Rate 61 64 69 Respiratory Rate 20 Blood Pressure 131/65 Pulse Oximetry 96 Oxygen Delivery Oxygen Flow Rate Fraction of Inspired Oxygen 10/10/23 07:52 10/10/23 07:50 10/10/23 08:00 Temperature Pulse Rate 67 Respiratory Rate Blood Pressure Pulse Oximetry 92 Oxygen Delivery Nasal Cannula Nasal Cannula Oxygen Flow Rate 4 4 Fraction of Inspired Oxygen 36 10/10/23 08:27 10/10/23 09:33 10/10/23 08:00 Temperature Pulse Rate 63 Respiratory Rate Blood Pressure Pulse Oximetry 92 Oxygen Delivery Nasal Cannula Nasal Cannula Oxygen Flow Rate 4 4 Fraction of Inspired Oxygen 10/10/23 12:00 10/10/23 16:00 10/10/23 14:00 Temperature 36.4 C Pulse Rate 75 69 72 Respiratory Rate 19 Blood Pressure 174/60 H Pulse Oximetry 94 Oxygen Delivery Oxygen Flow Rate Fraction of Inspired Oxygen 10/10/23 16:25 10/10/23 16:53 10/10/23 17:17 Temperature Pulse Rate 69 Respiratory Rate Blood Pressure Pulse Oximetry 98 95 Oxygen Delivery High Flow Nasal Cannula High Flow Nasal Cannula Oxygen Flow Rate 5 5 Fraction of Inspired Oxygen 10/10/23 16:15 10/10/23 16:30 10/10/23 16:15 Temperature Pulse Rate Respiratory Rate Blood Pressure Pulse Oximetry 82 L 95 82 L Oxygen Delivery High Flow Nasal Cannula Oxygen Flow Rate 2 Fraction of Inspired Oxygen Intake/Output Intake/Output: Intake & Output 07/2210/08/23 10/09/23 10/10/23 23:59 23:59 23:59 23:59 Intake Total 240 644 535 4554 Output Total 400 [phone] [facility] -[phone] Meds/Results Medications: Active Medications Generic Name Dose Route Start Last Admin Trade Name Freq PRN Reason Stop Dose Admin Acetaminophen 650 mg 10/07/23 14:36 10/08/23 19:42 Acetaminophen 325 Mg Tablet PO 650 mg Q4H PRN Administration Mild Pain (1-3) or Fever Albuterol 2 puff 10/07/23 17:56 Albuterol Sulfate (*Sp) Aerosol 1 Puff INHALATION PRN PRN shortness of breath or wheezing Aspirin 325 mg 10/08/23 09:00 10/10/23 09:33 Aspirin 325 Mg Tablet PO 11/07/23 08:59 325 mg DAILY GEOFFREY Administration Atorvastatin Calcium 80 mg 10/07/23 21:00 10/09/23 20:18 Atorvastatin 40 Mg Tablet PO 80 mg HS GEOFFREY Administration Carvedilol 25 mg 10/08/23 08:00 10/10/23 17:17 Carvedilol 25 Mg Tablet PO 25 mg BIDWM GEOFFREY Administration Clopidogrel Bisulfate 75 mg 10/08/23 09:00 10/10/23 09:33 Clopidogrel Bisulfate 75 Mg Tablet PO 75 mg DAILY GEOFFREY Administration Dextrose 12.5 gm 10/07/23 17:45 Dextrose 50% 25 Gm/50 Ml Syringe IV PUSH PRN PRN Hypoglycemia Protocol Enoxaparin Sodium 40 mg 10/08/23 09:00 10/10/23 09:34 Enoxaparin 40 Mg/0.4 Ml Syringe SUB-Q 40 mg DAILY GEOFFREY Administration Fish Oil 1 gm 10/08/23 09:00 10/10/23 09:33 [place] 3 Polyunsat Fatty Acids 1 Gm Cap PO 11/07/23 08:59 1 gm DAILY GEOFFREY Administration Furosemide 20 mg 10/08/23 09:00 10/10/23 09:33 Furosemide 20 Mg Tablet PO 20 mg DAILY GEOFFREY Administration Furosemide 40 mg 10/10/23 21:00 Furosemide Inj 40 Mg/4 Ml Vial IV PUSH 10/11/23 09:01 BID GEOFFREY Gabapentin 100 mg 10/07/23 22:00 10/10/23 13:46 Gabapentin 100 Mg Capsule PO 100 mg Q8HR GEOFFREY Administration Glucagon 1 mg 10/07/23 17:45 Glucagon For Inj 1 Mg Vial IM PRN PRN Hypoglycemia Protocol Glucagon 1 mg 10/08/23 07:27 Glucagon For Inj 1 Mg Vial IM PRN PRN Hypoglycemia Protocol Glucose 15 gm 10/07/23 17:45 Glucose Oral Gel 15 Gm Of Glucse In 37.5 Gm Tube PO PRN PRN Hypoglycemia Protocol Hydralazine HCl 20 mg 10/08/23 07:24 Hydralazine Hcl 20 Mg/Ml Vial IV PUSH Q6HR PRN hypertension Dextrose 1,000 mls @ 100 mls/hr 10/07/23 17:45 Dextrose 5% 1,000 Ml IVPB PRN PRN Hypoglycemia Protocol Sodium Chloride 1,000 mls @ 100 mls/hr 10/09/23 17:20 10/10/23 04:30 Normal Saline Iv IV CONT 100 mls/hr .Q10H GEOFFREY Administration Azithromycin 500 mg in 250 mls @ 250 mls/hr 10/10/23 19:00 Zithromax IVPB 10/12/23 19:59 Q24H GEOFFREY Ceftriaxone Sodium 1 gm in 50 mls @ 100 mls/hr 10/10/23 18:00 Rocephin 1 Gm/Ns 50 Ml IVPB 10/14/23 18:29 Q24H GEOFFREY Insulin Aspart 2 - 5 units 10/08/23 08:00 10/10/23 17:17 Insulin Aspart (*Bkc) 100 Units/Ml SUB-Q Not Given TIDWM GEOFFREY Protocol Levetiracetam 500 mg 10/08/23 21:00 10/10/23 09:34 Levetiracetam 500 Mg Tablet PO 500 mg Q12HR GEOFFREY Administration Melatonin 10 mg 10/07/23 21:00 10/09/23 20:17 Melatonin 5 Mg Tablet PO 10 mg HS GEOFFREY Administration Nifedipine 60 mg 10/08/23 09:00 10/10/23 09:33 Nifedipine 30 Mg Tab.Er.24 PO 60 mg QAM GEOFFREY Administration Ondansetron HCl 4 mg 10/07/23 14:36 Ondansetron Inj 4 Mg/2 Ml Vial IV PUSH Q4H PRN Nausea Pantoprazole Sodium 40 mg 10/08/23 09:00 10/10/23 09:33 Pantoprazole 40 Mg Tablet PO 11/07/23 08:59 40 mg DAILY GEOFFREY Administration Paroxetine HCl 40 mg 10/08/23 09:00 10/10/23 09:33 Paroxetine 20 Mg Tablet PO 40 mg DAILY GEOFFREY Administration Ramipril 10 mg 10/08/23 09:00 10/10/23 09:33 Ramipril 5 Mg Capsule PO 10 mg DAILY GEOFFREY Administration Radiology Results: ITS Impressions Head CT 10/07/23 14:07 IMPRESSION: No acute intracranial findings. Abdomen Ultrasound 10/07/23 16:04 IMPRESSION: 1. Nonvisualization of the gallbladder and pancreas. Otherwise, Unremarkable limited ultrasound of the abdomen. Brain MRI 10/08/23 08:09 IMPRESSION: 1. No acute intracranial process. 2. No abnormal enhancement. 3. Old lacunar infarcts in the right cam radiata and centrum semiovale. Old lacunar infarcts in the jamie. Chest X-Ray 10/10/23 16:44 IMPRESSION: Presumed discoid atelectasis in the right midlung. Streaky left basilar atelectasis/scar. Small left pleural effusion. Infection is not excluded. Labs Labs: Laboratory Results - last 24 hr 10/09/23 10/10/23 10/10/23 19:39 05:07 08:10 WBC 9.0 RBC 3.85 L Hgb 10.5 L Hct 34.4 L MCV 89.4 MCH 27.3 MCHC 30.5 L RDW 15.1 H Plt Count 310 MPV 11.2 H Puncture Site ABG pH ABG pCO2 ABG pO2 ABG PO2/FiO2 Ratio ABG HCO3 ABG O2 Saturation ABG O2 Content ABG Base Excess A-a Gradient Oxyhemoglobin Carboxyhemoglobin Methemoglobin Reduced Hemoglobin Total Hemoglobin O2 Delivery Device O2 Liters/Min FiO2 Sodium 137 Potassium 4.5 Chloride 104 Carbon Dioxide 25 Anion Gap 8 BUN 21 H Creatinine 1.50 H Estim Creat Clear Calc 47 Estimated GFR 47 L Glucose 89 POC Capillary Glucose 91 92 Calcium 8.4 Total Bilirubin 0.4 AST 20 ALT 9 Alkaline Phosphatase 106 Total Protein 7.0 Albumin 3.1 L 10/10/23 10/10/23 10/10/23 11:49 17:08 17:27 WBC RBC Hgb Hct MCV MCH MCHC RDW Plt Count MPV Puncture Site Right brachial ABG pH 7.424 ABG pCO2 38.6 ABG pO2 55.1 L ABG PO2/FiO2 Ratio 1.38 ABG HCO3 24.7 ABG O2 Saturation 89.5 L ABG O2 Content 12.5 L ABG Base Excess 0.4 A-a Gradient 185.7 Oxyhemoglobin 87.6 L* Carboxyhemoglobin 0.0 Methemoglobin 0.2 Reduced Hemoglobin 12.2 H Total Hemoglobin 10.1 L O2 Delivery Device High flow nasal aaron O2 Liters/Min 5.0 FiO2 40 Sodium Potassium Chloride Carbon Dioxide Anion Gap BUN Creatinine Estim Creat Clear Calc Estimated GFR Glucose POC Capillary Glucose 226 H 189 H Calcium Total Bilirubin AST ALT Alkaline Phosphatase Total Protein Albumin
[2023-10-10] MEDS: AZITHROMYCIN 500 MG/NS 250 ML 500 MG/250 ML BAG 250 MG IVPB (19:38)
[2023-10-10 20:03] LABS: Cholesterol 139 mg/dL (0-200); HDL Direct 26 mg/dL; Triglycerides 153 mg/dL (<150)
[2023-10-10 20:10] LABS: Vitamin D 25 Hydroxy < 12.8 ng/mL
[2023-10-10 20:23] LABS: LDL Cholesterol Direct 72 mg/dL
[2023-10-10 20:26] LABS: T4 Thyroxine 8.45 ug/dL (5.53-11.0)
[2023-10-10] MEDS: MELATONIN 5 MG TABLET 10 MG PO (20:32)
[2023-10-10] MEDS: ATORVASTATIN 40 MG TABLET 80 MG PO (20:32)
[2023-10-10] MEDS: FUROSEMIDE INJ 40 MG/4 ML VIAL IV PUSH (20:33)
[2023-10-10 20:53] LABS: Glucose Point of Care 165 mg/dl (65-105)
[2023-10-11] VITALS (12 sets, daily range): BP systolic 131–152; BP diastolic 47–60; PULSE 59–65; RESP 18–20; TEMP 35.8–37; O2SAT 94–99
[2023-10-11] MEDS: GABAPENTIN 100 MG CAPSULE PO ×2 (06:31→20:44)
[2023-10-11 07:33] LABS: Hemoglobin 8.9 g/dL (14.0-18.0); Mean Corpuscular HGB Conc 29.7 g/dl (32-36); Mean Corpuscular Hemoglobin 26.8 pg (26-34); Mean Corpuscular Volume 90.4 fl (80-100); Mean Platelet Volume 10.9 fl (7.4-10.4); Platelet Count Result 237 k/mm3 (150-375); Red Blood Count 3.32 M/mm3 (4.6-6.20); Red Cell Distribution Width 14.9 % (11.5-14.5); White Blood Count 7.6 K/mm3 (4.5-10.0)
[2023-10-11 07:54] LABS: Alanine Aminotransferase 8 U/L (6-50); Albumin Level 2.7 g/dL (3.5-5.1); Alkaline Phosphatase 79 U/L (38-126); Anion Gap 7 mmol/L (4-12); Aspartate Amino Transferase 19 U/L (17-59); Bilirubin,Total 0.3 mg/dL (0.2-1.3); Blood Urea Nitrogen 23 mg/dL (9-20); Calcium 7.6 mg/dL (8.4-10.2); Carbon Dioxide 26 mmol/L (22-30); Chloride 102 mmol/L (98-107); Estimated CRCL calculation 44 ml/min; Estimated Glomerular Filt Rate 44; Glucose 104 mg/dL (65-110); Sodium 135 mmol/L (137-145)
[2023-10-11 08:03] LABS: Glucose Point of Care 107 mg/dl (65-105)
--- NOTE | 2023-10-11 08:13 | PM.IMPN ---
Progress Note: A&P Assessment and Plan (1) Acute hypoxemic respiratory failure: Code(s): J96.01 - Acute respiratory failure with hypoxia Status: Acute (2) Hallucinations, visual: Code(s): R44.1 - Visual hallucinations Status: Acute (3) Heart failure with preserved ejection fraction: Qualifiers: Heart failure chronicity: acute on chronic Qualified Code(s): I50.33 - Acute on chronic diastolic (congestive) heart failure Code(s): I50.30 - Unspecified diastolic (congestive) heart failure Status: Acute (4) Hypertension: Qualifiers: Hypertension type: unspecified Qualified Code(s): I10 - Essential (primary) hypertension Code(s): I10 - Essential (primary) hypertension Status: Chronic (5) Insulin dependent type 2 diabetes mellitus: Code(s): E11.9 - Type 2 diabetes mellitus without complications; 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 Status: Chronic (6) Paroxysmal atrial fibrillation: Code(s): I48.0 - Paroxysmal atrial fibrillation Status: Acute (7) Vascular dementia: Code(s): F01.50 - Vascular dementia, unspecified severity, without behavioral disturbance, psychotic disturbance, mood disturbance, and anxiety Status: Acute (8) Chronic anemia: Code(s): D64.9 - Anemia, unspecified Status: Acute (9) Altered mental status: Code(s): R41.82 - Altered mental status, unspecified Status: Acute (10) Acute kidney injury superimposed on CKD: Code(s): N17.9 - Acute kidney failure, unspecified; N18.9 - Chronic kidney disease, unspecified Status: Acute Plan This is a 63-year-old male with history of strokes, vascular dementia, bipolar disorder, coronary artery disease status post 3 vessel coronary artery bypass, heart failure with preserved ejection fraction, paroxysmal atrial fibrillation not on chronic anticoagulation, peripheral arterial disease, hypertension, chronic kidney disease, chronic anemia, and insulin-dependent type 2 diabetes mellitus who presented to the emergency department for evaluation of altered mental status. He was admitted to the hospital about 4 weeks ago after presenting with shortness of breath and abdominal pain. He was treated for congestive heart failure, pneumonia, and cholecystitis status post cholecystostomy tube and was discharged home on Augmentin, Bactrim, and Flagyl. He has been doing pretty well in that regard. Over the last couple of days he has become altered. He is having hallucinations Altered mental status Patient presented hallucination and change of mental status, patient was noticed to have seizure activity Possible due to multiple causes including seizure, polypharmacy, dehydration, metabolic disorder on the base of possible ischemic dementia Patient received IV fluid Neurologist is consulted Treat underlying disease Patient was lower oriented x3 no History of stroke Patient is on aspirin 325 mg daily p.o.,, Plavix 75 mg daily p.o., Lipitor 80 mg daily p.o. Management per neurologist Seizure patient is on seizure medication Keppra 500 mg b.i.d. p.o. Management per neurologist CKD stage 3 Elevated BUN creatinine ratio, close to baseline Acute on chronic respiratory failure Chest x-ray reports discoid atelectasis in the right midlung. Streaky left basilar atelectasis/scar Possible due to atelectasis YOLANDA Patient does not need oxygen at home, Will consult piping drafter for evaluation treatment Diastolic heart failure, Recent echocardiogram showed EF 60-65%, grade 1 diastolic function Switch furosemide 40 mg b.i.d. IV to b.i.d. p.o. Essential hypertension Patient is on nifedipine 60 mg daily p.o. ramipril 10 mg daily p.o. Subjective Date/time seen: 10/11/23 08:13 Interval history: I saw examined patient today in the morning, patient was alert oriented x3, denied headache, palpitation, short of breath Exam Narrative: GENERAL: Pleasant, in no acute distress. Well-nourished. - EYES: EOMI. Anicteric. - HENT: Moist mucous membranes. - LUNGS: Clear to auscultation bilaterally, no wheezing, rhonchi, or rales. - CARDIOVASCULAR: Regular rate and rhythm. No murmur. No JVD. - ABDOMEN: Soft, non-tender and non-distended. No palpable masses. - EXTREMITIES: No edema. Peripheral pulses 2+. Non-tender. - NEUROLOGIC: No focal neurological deficits. CN II-XII grossly intact. - PSYCHIATRIC: Awake, Alert and oriented x 3. Appropriate mood and affect. - SKIN: No rashes or lesions. Warm. - LYMPH: No cervical lymphadenopathy. Objective Data Vital Signs Vital Signs: Vital Signs - 24 hr 10/10/23 08:27 10/10/23 09:33 10/10/23 12:00 Temperature Pulse Rate 63 75 Respiratory Rate Blood Pressure Pulse Oximetry Oxygen Delivery Nasal Cannula Oxygen Flow Rate 4 10/10/23 16:00 10/10/23 14:00 10/10/23 16:25 Temperature 97.6 F Pulse Rate 69 72 Respiratory Rate 19 Blood Pressure 174/60 H Pulse Oximetry 94 98 Oxygen Delivery High Flow Nasal Cannula Oxygen Flow Rate 5 10/10/23 16:53 10/10/23 17:17 10/10/23 16:15 Temperature Pulse Rate 69 Respiratory Rate Blood Pressure Pulse Oximetry 95 82 L Oxygen Delivery High Flow Nasal Cannula Oxygen Flow Rate 5 10/10/23 16:30 10/10/23 16:15 10/10/23 19:27 Temperature 98.7 F Pulse Rate 62 Respiratory Rate 20 Blood Pressure 165/55 H Pulse Oximetry 95 82 L 96 Oxygen Delivery High Flow Nasal Cannula Oxygen Flow Rate 2 10/10/23 20:00 10/10/23 22:57 10/10/23 20:00 Temperature Pulse Rate 65 Respiratory Rate Blood Pressure Pulse Oximetry 96 97 Oxygen Delivery High Flow Nasal Cannula High Flow Nasal Cannula Oxygen Flow Rate 5 5 10/11/23 00:00 10/11/23 04:00 10/11/23 06:00 Temperature 97.4 F L Pulse Rate 59 L 59 L 60 Respiratory Rate 18 Blood Pressure 131/47 L Pulse Oximetry 99 Oxygen Delivery Oxygen Flow Rate Intake/Output Intake/Output: Intake & Output 10/08/23 10/09/23 10/10/23 10/11/23 23:59 23:59 23:59 23:59 Intake Total 476 770 7818.7 0 Output Total 3418 610 1200 Balance -620 -515 2387.7 0 Meds/Results Medications: Active Medications Generic Name Dose Route Start Last Admin Trade Name Freq PRN Reason Stop Dose Admin Acetaminophen 650 mg 10/07/23 14:36 10/08/23 19:42 Acetaminophen 325 Mg Tablet PO 650 mg Q4H PRN Administration Mild Pain (1-3) or Fever Albuterol 2 puff 10/07/23 17:56 Albuterol Sulfate (*Sp) Aerosol 1 Puff INHALATION PRN PRN shortness of breath or wheezing Aspirin 325 mg 10/08/23 09:00 10/10/23 09:33 Aspirin 325 Mg Tablet PO 11/07/23 08:59 325 mg DAILY GEOFFREY Administration Atorvastatin Calcium 80 mg 10/07/23 21:00 10/10/23 20:32 Atorvastatin 40 Mg Tablet PO 80 mg HS GEOFFREY Administration Carvedilol 25 mg 10/08/23 08:00 10/10/23 17:17 Carvedilol 25 Mg Tablet PO 25 mg BIDWM GEOFFREY Administration Clopidogrel Bisulfate 75 mg 10/08/23 09:00 10/10/23 09:33 Clopidogrel Bisulfate 75 Mg Tablet PO 75 mg DAILY GEOFFREY Administration Dextrose 12.5 gm 10/07/23 17:45 Dextrose 50% 25 Gm/50 Ml Syringe IV PUSH PRN PRN Hypoglycemia Protocol Enoxaparin Sodium 40 mg 10/08/23 09:00 10/10/23 09:34 Enoxaparin 40 Mg/0.4 Ml Syringe SUB-Q 40 mg DAILY GEOFFREY Administration Fish Oil 1 gm 10/08/23 09:00 10/10/23 09:33 [place] 3 Polyunsat Fatty Acids 1 Gm Cap PO 11/07/23 08:59 1 gm DAILY GEOFFREY Administration Furosemide 20 mg 10/08/23 09:00 10/10/23 09:33 Furosemide 20 Mg Tablet PO 20 mg DAILY GEOFFREY Administration Furosemide 40 mg 10/10/23 21:00 10/10/23 20:33 Furosemide Inj 40 Mg/4 Ml Vial IV PUSH 10/11/23 09:01 40 mg BID GEOFFREY Administration Gabapentin 100 mg 10/07/23 22:00 10/11/23 06:31 Gabapentin 100 Mg Capsule PO 100 mg Q8HR GEOFFREY Administration Glucagon 1 mg 10/07/23 17:45 Glucagon For Inj 1 Mg Vial IM PRN PRN Hypoglycemia Protocol Glucagon 1 mg 10/08/23 07:27 Glucagon For Inj 1 Mg Vial IM PRN PRN Hypoglycemia Protocol Glucose 15 gm 10/07/23 17:45 Glucose Oral Gel 15 Gm Of Glucse In 37.5 Gm Tube PO PRN PRN Hypoglycemia Protocol Hydralazine HCl 20 mg 10/08/23 07:24 Hydralazine Hcl 20 Mg/Ml Vial IV PUSH Q6HR PRN hypertension Dextrose 1,000 mls @ 100 mls/hr 10/07/23 17:45 Dextrose 5% 1,000 Ml IVPB PRN PRN Hypoglycemia Protocol Sodium Chloride 1,000 mls @ 100 mls/hr 10/09/23 17:20 10/10/23 21:26 Normal Saline Iv IV CONT 0 mls/hr .Q10H GEOFFREY Infusion Azithromycin 500 mg in 250 mls @ 250 mls/hr 10/10/23 19:00 10/10/23 19:38 Zithromax IVPB 10/12/23 19:59 250 mls/hr Q24H GEOFFREY Administration Ceftriaxone Sodium 1 gm in 50 mls @ 100 mls/hr 10/10/23 18:00 10/10/23 18:43 Rocephin 1 Gm/Ns 50 Ml IVPB 10/14/23 18:29 100 mls/hr Q24H GEOFFREY Administration Insulin Aspart 2 - 5 units 10/08/23 08:00 10/10/23 17:17 Insulin Aspart (*Bkc) 100 Units/Ml SUB-Q Not Given TIDWM [facility] Protocol Levetiracetam 500 mg 10/08/23 21:00 10/10/23 20:32 Levetiracetam 500 Mg Tablet PO 500 mg Q12HR GEOFFREY Administration Melatonin 10 mg 10/07/23 21:00 10/10/23 20:32 Melatonin 5 Mg Tablet PO 10 mg HS GEOFFREY Administration Nifedipine 60 mg 10/08/23 09:00 10/10/23 09:33 Nifedipine 30 Mg Tab.Er.24 PO 60 mg QAM GEOFFREY Administration Ondansetron HCl 4 mg 10/07/23 14:36 Ondansetron Inj 4 Mg/2 Ml Vial IV PUSH Q4H PRN Nausea Pantoprazole Sodium 40 mg 10/08/23 09:00 10/10/23 09:33 Pantoprazole 40 Mg Tablet PO 11/07/23 08:59 40 mg DAILY GEOFFREY Administration Paroxetine HCl 40 mg 10/08/23 09:00 10/10/23 09:33 Paroxetine 20 Mg Tablet PO 40 mg DAILY GEOFFREY Administration Ramipril 10 mg 10/08/23 09:00 10/10/23 09:33 Ramipril 5 Mg Capsule PO 10 mg DAILY GEOFFREY Administration Radiology Results: ITS Impressions Head CT 10/07/23 14:07 IMPRESSION: No acute intracranial findings. Abdomen Ultrasound 10/07/23 16:04 IMPRESSION: 1. Nonvisualization of the gallbladder and pancreas. Otherwise, Unremarkable limited ultrasound of the abdomen. Brain MRI 10/08/23 08:09 IMPRESSION: 1. No acute intracranial process. 2. No abnormal enhancement. 3. Old lacunar infarcts in the right cam radiata and centrum semiovale. Old lacunar infarcts in the jamie. Chest X-Ray 10/10/23 16:44 IMPRESSION: Presumed discoid atelectasis in the right midlung. Streaky left basilar atelectasis/scar. Small left pleural effusion. Infection is not excluded. Carotid Doppler Study 10/11/23 07:03 IMPRESSION: 1. 50-69% stenosis in the right internal carotid artery. 2. <50% stenosis in the left internal carotid artery. Labs Labs: Laboratory Results - last 24 hr 10/10/23 10/10/23 10/10/23 08:10 11:49 17:08 WBC RBC Hgb Hct MCV MCH MCHC RDW Plt Count MPV Puncture Site ABG pH ABG pCO2 ABG pO2 ABG PO2/FiO2 Ratio ABG HCO3 ABG O2 Saturation ABG O2 Content ABG Base Excess A-a Gradient Oxyhemoglobin Carboxyhemoglobin Methemoglobin Reduced Hemoglobin Total Hemoglobin O2 Delivery Device O2 Liters/Min FiO2 Sodium Potassium Chloride Carbon Dioxide Anion Gap BUN Creatinine Estim Creat Clear Calc Estimated GFR Glucose POC Capillary Glucose 92 226 H 189 H Calcium Total Bilirubin AST ALT Alkaline Phosphatase Total Protein Albumin Triglycerides Cholesterol LDL Cholesterol Direct HDL Direct Vitamin B12 Vitamin D 25-Hydroxy Folate TSH Thyroxine (T4) 10/10/23 10/10/23 10/10/23 17:27 19:00 19:20 WBC RBC Hgb Hct MCV MCH MCHC RDW Plt Count MPV Puncture Site Right brachial ABG pH 7.424 ABG pCO2 38.6 ABG pO2 55.1 L ABG PO2/FiO2 Ratio 1.38 ABG HCO3 24.7 ABG O2 Saturation 89.5 L ABG O2 Content 12.5 L ABG Base Excess 0.4 A-a Gradient 185.7 Oxyhemoglobin 87.6 L* Carboxyhemoglobin 0.0 Methemoglobin 0.2 Reduced Hemoglobin 12.2 H Total Hemoglobin 10.1 L O2 Delivery Device High flow nasal aaron O2 Liters/Min 5.0 FiO2 40 Sodium Potassium Chloride Carbon Dioxide Anion Gap BUN Creatinine Estim Creat Clear Calc Estimated GFR Glucose POC Capillary Glucose 165 H Calcium Total Bilirubin AST ALT Alkaline Phosphatase Total Protein Albumin Triglycerides 153 H Cholesterol 139 LDL Cholesterol Direct 72 HDL Direct 26 Vitamin B12 857.0 Vitamin D 25-Hydroxy < 12.8 Folate 5.0 TSH 4.310 Thyroxine (T4) 8.45 10/11/23 10/11/23 07:16 07:58 WBC 7.6 RBC 3.32 L Hgb 8.9 L Hct 30.0 L MCV 90.4 MCH 26.8 MCHC 29.7 L RDW 14.9 H Plt Count 237 MPV 10.9 H Puncture Site ABG pH ABG pCO2 ABG pO2 ABG PO2/FiO2 Ratio ABG HCO3 ABG O2 Saturation ABG O2 Content ABG Base Excess A-a Gradient Oxyhemoglobin Carboxyhemoglobin Methemoglobin Reduced Hemoglobin Total Hemoglobin O2 Delivery Device O2 Liters/Min FiO2 Sodium 135 L Potassium 4.0 Chloride 102 Carbon Dioxide 26 Anion Gap 7 BUN 23 H Creatinine 1.60 H Estim Creat Clear Calc 44 Estimated GFR 44 L Glucose 104 POC Capillary Glucose 107 H Calcium 7.6 L Total Bilirubin 0.3 AST 19 ALT 8 Alkaline Phosphatase 79 Total Protein 6.0 L Albumin 2.7 L Triglycerides Cholesterol LDL Cholesterol Direct HDL Direct Vitamin B12 Vitamin D 25-Hydroxy Folate TSH Thyroxine (T4)
[2023-10-11] MEDS: carvediloL 25 MG TABLET PO ×2 (09:38→17:29)
[2023-10-11] MEDS: CLOPIDOGREL BISULFATE 75 MG TABLET PO (09:39)
[2023-10-11] MEDS: NIFEdipine 30 MG TAB.ER.24 60 MG PO (09:39)
[2023-10-11] MEDS: PANTOPRAZOLE 40 MG TABLET PO (09:39)
[2023-10-11] MEDS: ASPIRIN 325 MG TABLET PO (09:39)
[2023-10-11] MEDS: OMEGA 3 POLYUNSAT FATTY ACIDS 1 GM CAP PO (09:39)
[2023-10-11] MEDS: levETIRAcetam 500 MG TABLET PO ×2 (09:40→20:44)
[2023-10-11] MEDS: ENOXAPARIN 40 MG/0.4 ML SYRINGE SUB-Q (09:40)
[2023-10-11] MEDS: ramipriL 5 MG CAPSULE 10 MG PO (09:40)
[2023-10-11] MEDS: FUROSEMIDE 40 MG TABLET PO ×2 (10:11→17:30)
--- NOTE | 2023-10-11 10:55 | PCPTNOTE ---
Attempted to see patient for PT, however patient and patient's refused therapy at this time. Educated patient and patient's on the importance of PT, and discussed with about PT coming back later to work with patient.
--- NOTE | 2023-10-11 11:56 | PCOTNOTE ---
Attempted to see Patient this A.M. Patient's present and states he is not feeling well today. Patient refused to participate in any and all activities. Patient was asked what was bothering him, states, my body, I don't feel well. Patient's stated, maybe try back later but he has been resistive today, good luck.
[2023-10-11 11:59] LABS: Glucose Point of Care 126 mg/dl (65-105)
[2023-10-11 13:20] LABS: Base Excess ABG 1.8 mEq/l (+/-2.0); Fractional Inspired Oxygen 32 %; HCO3 ABG 26.9 mEq/l (22.0-26.0); Oxygen Content ABG 12.9 %vol (16.0-22.0); Oxygen Saturation ABG 94.9 % (95.0-100.0); Oxyhemoglobin 93.7 % THb (90.0-100.0); PCO2 ABG 44.2 mmHg (35.0-45.0); PO2 ABG 74.4 mmHg (80.0-100.0); PO2 FiO2 Ratio Arterial Blood 2.33 %; Total Hemoglobin 9.7 g/dL (12.0-18.0); pH ABG 7.402 (7.350-7.450)
[2023-10-11 13:21] LABS: Device NASAL CANNULA; Modified Allen's Test Pass; Site Drawn RIGHT RADIAL
--- NOTE | 2023-10-11 13:42 | PCOTNOTE ---
Attempted again this afternoon. Patient's present. Patient refused to participate this P.M. Therapist expressed the importance of participation for progress and discharge preference. Patient stated, not today, I don't feel good.
[2023-10-11] MEDS: SODIUM CHLORIDE 0.9% IV 1,000 ML 75 ML IV CONT (16:07)
[2023-10-11 16:57] LABS: Glucose Point of Care 133 mg/dl (65-105)
[2023-10-11] MEDS: AZITHROMYCIN 500 MG/NS 250 ML 500 MG/250 ML BAG 250 MG IVPB (18:40)
[2023-10-11] MEDS: ATORVASTATIN 40 MG TABLET 80 MG PO (20:44)
[2023-10-11] MEDS: MELATONIN 5 MG TABLET 10 MG PO (20:44)
[2023-10-11 20:48] LABS: Glucose Point of Care 175 mg/dl (65-105)
[2023-10-12] VITALS (12 sets, daily range): BP systolic 113–179; BP diastolic 52–58; PULSE 64–83; RESP 18–20; TEMP 36.3–36.6; O2SAT 92–97
[2023-10-12 05:57] LABS: Hematocrit 28.6 % (42.0-52.0); Hemoglobin 8.9 g/dL (14.0-18.0); Mean Corpuscular HGB Conc 31.1 g/dl (32-36); Mean Corpuscular Hemoglobin 27.7 pg (26-34); Mean Corpuscular Volume 89.1 fl (80-100); Mean Platelet Volume 11.5 fl (7.4-10.4); Platelet Count Result 249 k/mm3 (150-375); Red Blood Count 3.21 M/mm3 (4.6-6.20); Red Cell Distribution Width 14.9 % (11.5-14.5); White Blood Count 10.2 K/mm3 (4.5-10.0)
[2023-10-12 06:14] LABS: Alanine Aminotransferase 11 U/L (6-50); Albumin Level 2.8 g/dL (3.5-5.1); Alkaline Phosphatase 88 U/L (38-126); Anion Gap 6 mmol/L (4-12); Aspartate Amino Transferase 26 U/L (17-59); Bilirubin,Total 0.2 mg/dL (0.2-1.3); Blood Urea Nitrogen 21 mg/dL (9-20); Calcium 7.7 mg/dL (8.4-10.2); Carbon Dioxide 25 mmol/L (22-30); Chloride 102 mmol/L (98-107); Estimated CRCL calculation 47 ml/min; Estimated Glomerular Filt Rate 47; Glucose 161 mg/dL (65-110); Sodium 133 mmol/L (137-145)
[2023-10-12] MEDS: SODIUM CHLORIDE 0.9% IV 1,000 ML 75 ML IV CONT ×2 (06:54→17:53)
[2023-10-12] MEDS: GABAPENTIN 100 MG CAPSULE PO ×3 (06:54→20:24)
[2023-10-12 08:10] LABS: Glucose Point of Care 146 mg/dl (65-105)
--- NOTE | 2023-10-12 08:17 | P.PNIM_ITS ---
Progress Note: A&P Assessment and Plan (1) Acute hypoxemic respiratory failure: Code(s): J96.01 - Acute respiratory failure with hypoxia Status: Acute (2) Hallucinations, visual: Code(s): R44.1 - Visual hallucinations Status: Acute (3) Heart failure with preserved ejection fraction: Qualifiers: Heart failure chronicity: acute on chronic Qualified Code(s): I50.33 - Acute on chronic diastolic (congestive) heart failure Code(s): I50.30 - Unspecified diastolic (congestive) heart failure Status: Acute (4) Hypertension: Qualifiers: Hypertension type: unspecified Qualified Code(s): I10 - Essential (primary) hypertension Code(s): I10 - Essential (primary) hypertension Status: Chronic (5) Insulin dependent type 2 diabetes mellitus: Code(s): E11.9 - Type 2 diabetes mellitus without complications; 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 Status: Chronic (6) Paroxysmal atrial fibrillation: Code(s): I48.0 - Paroxysmal atrial fibrillation Status: Acute (7) Vascular dementia: Code(s): F01.50 - Vascular dementia, unspecified severity, without behavioral disturbance, psychotic disturbance, mood disturbance, and anxiety Status: Acute (8) Chronic anemia: Code(s): D64.9 - Anemia, unspecified Status: Acute (9) Altered mental status: Code(s): R41.82 - Altered mental status, unspecified Status: Acute (10) Acute kidney injury superimposed on CKD: Code(s): N17.9 - Acute kidney failure, unspecified; N18.9 - Chronic kidney disease, unspecified Status: Acute Plan This is a 63-year-old male with history of strokes, vascular dementia, bipolar disorder, coronary artery disease status post 3 vessel coronary artery bypass, heart failure with preserved ejection fraction, paroxysmal atrial fibrillation not on chronic anticoagulation, peripheral arterial disease, hypertension, chronic kidney disease, chronic anemia, and insulin-dependent type 2 diabetes mellitus who presented to the emergency department for evaluation of altered mental status. He was admitted to the hospital about 4 weeks ago after presenting with shortness of breath and abdominal pain. He was treated for congestive heart failure, pneumonia, and cholecystitis status post cholecystostomy tube and was discharged home on Augmentin, Bactrim, and Flagyl. He has been doing pretty well in that regard. Over the last couple of days he has become altered. He is having hallucinations Altered mental status Patient presented hallucination and change of mental status, patient was noticed to have seizure activity Possible due to multiple causes including seizure, polypharmacy, dehydration, metabolic disorder on the base of possible ischemic dementia Patient received IV fluid Neurologist is consulted Treat underlying disease Patient ALERT ORIENTED X3 History of stroke Patient is on aspirin 325 mg daily p.o.,, Plavix 75 mg daily p.o., Lipitor 80 mg daily p.o. Management per neurologist Seizure patient is on seizure medication Keppra 500 mg b.i.d. p.o. Management per neurologist CKD stage 3 Elevated BUN creatinine ratio, close to baseline Acute on chronic respiratory failure Chest x-ray reports discoid atelectasis in the right midlung. Streaky left basilar atelectasis/scar Possible due to atelectasis, fluid overload, YOLANDA Patient does not need oxygen at home, Will consult drum sander setter for evaluation treatment Diastolic heart failure, Recent echocardiogram showed EF 60-65%, grade 1 diastolic function Received IV Lasix 40 mg b.i.d. IV push. Switch furosemide 40 mg b.i.d. IV to b.i.d. p.o. Essential hypertension Patient is on nifedipine 60 mg daily p.o. ramipril 10 mg daily p.o. Patient needs oxygen supplies after discharge, console health care facilities inspector for assisting placement Subjective Date/time seen: 10/12/23 08:17 Interval history: I saw examined patient today in the morning, patient was alert oriented x3, denied headache, palpitation, short of breath. Patient still needs 2 L oxygen today Exam Narrative: GENERAL: Pleasant, in no acute distress. Well-nourished. - EYES: EOMI. Anicteric. - HENT: Moist mucous membranes. - LUNGS: Clear to auscultation bilateral ly, no wheezing, rhonchi, or rales. - CARDIOVASCULAR: Regular rate and rhyth m. No murmur. No JVD. - ABDOMEN: Soft, non-tender and non-dist ended. No palpable masses. - EXTREMITIES: No edema. Peripheral puls es 2+. Non-tender. - NEUROLOGIC: No focal neurological defi cits. CN II-XII grossly intact. - PSYCHIATRIC: Awake, Alert and oriented x 3. Appropriate mood and affect. - SKIN: No rashes or lesions. Warm. - LYMPH: No cervical lymphadenopathy. Objective Data Vital Signs Vital Signs: Vital Signs - 24 hr 10/11/23 09:38 10/11/23 09:34 10/11/23 12:00 Temperature Pulse Rate 60 65 Respiratory Rate Blood Pressure Pulse Oximetry 99 Oxygen Delivery High Flow Nasal Cannula Oxygen Flow Rate 4 10/11/23 14:00 10/11/23 16:00 10/11/23 17:29 Temperature 98.6 F Pulse Rate 64 62 62 Respiratory Rate 20 Blood Pressure 145/60 H Pulse Oximetry 99 Oxygen Delivery Oxygen Flow Rate 10/11/23 19:19 10/11/23 20:00 10/12/23 02:45 Temperature 96.4 F L Pulse Rate 63 Respiratory Rate 18 Blood Pressure 152/56 H Pulse Oximetry 94 94 92 Oxygen Delivery High Flow Nasal Cannula Nasal Cannula Oxygen Flow Rate 3 2 10/12/23 04:28 10/11/23 20:00 10/12/23 00:00 Temperature 97.3 F L Pulse Rate 75 64 82 Respiratory Rate 20 Blood Pressure 179/55 H Pulse Oximetry 97 Oxygen Delivery Oxygen Flow Rate 10/12/23 04:00 Temperature Pulse Rate 77 Respiratory Rate Blood Pressure Pulse Oximetry Oxygen Delivery Oxygen Flow Rate Intake/Output Intake/Output: Intake & Output 10/09/23 10/10/23 10/11/23 10/12/23 23:59 23:59 23:59 23:59 Intake Total 360 3887.7 420 1250 Output Total 875 1200 Balance -515 2687.7 420 1250 Meds/Results Medications: Active Medications Generic Name Dose Route Start Last Admin Trade Name Freq PRN Reason Stop Dose Admin Acetaminophen 650 mg 10/07/23 14:36 10/08/23 19:42 Acetaminophen 325 Mg Tablet PO 650 mg Q4H PRN Administration Mild Pain (1-3) or Fever Albuterol 2 puff 10/07/23 17:56 Albuterol Sulfate (*Sp) Aerosol 1 Puff INHALATION PRN PRN shortness of breath or wheezing Aspirin 325 mg 10/08/23 09:00 10/11/23 09:39 Aspirin 325 Mg Tablet PO 11/07/23 08:59 325 mg DAILY GEOFFREY Administration Atorvastatin Calcium 80 mg 10/07/23 21:00 10/11/23 20:44 Atorvastatin 40 Mg Tablet PO 80 mg HS GEOFFREY Administration Carvedilol 25 mg 10/08/23 08:00 10/11/23 17:29 Carvedilol 25 Mg Tablet PO 25 mg BIDWM GEOFFREY Administration Clopidogrel Bisulfate 75 mg 10/08/23 09:00 10/11/23 09:39 Clopidogrel Bisulfate 75 Mg Tablet PO 75 mg DAILY GEOFFREY Administration Dextrose 12.5 gm 10/07/23 17:45 Dextrose 50% 25 Gm/50 Ml Syringe IV PUSH PRN PRN Hypoglycemia Protocol Enoxaparin Sodium 40 mg 10/08/23 09:00 10/11/23 09:40 Enoxaparin 40 Mg/0.4 Ml Syringe SUB-Q 40 mg DAILY GEOFFREY Administration Fish Oil 1 gm 10/08/23 09:00 10/11/23 09:39 [place] 3 Polyunsat Fatty Acids 1 Gm Cap PO 11/07/23 08:59 1 gm DAILY GEOFFREY Administration Furosemide 40 mg 10/11/23 09:57 10/11/23 17:30 Furosemide 40 Mg Tablet PO 40 mg BID GEOFFREY Administration Gabapentin 100 mg 10/07/23 22:00 10/12/23 06:54 Gabapentin 100 Mg Capsule PO 100 mg Q8HR GEOFFREY Administration Glucagon 1 mg 10/07/23 17:45 Glucagon For Inj 1 Mg Vial IM PRN PRN Hypoglycemia Protocol Glucagon 1 mg 10/08/23 07:27 Glucagon For Inj 1 Mg Vial IM PRN PRN Hypoglycemia Protocol Glucose 15 gm 10/07/23 17:45 Glucose Oral Gel 15 Gm Of Glucse In 37.5 Gm Tube PO PRN PRN Hypoglycemia Protocol Hydralazine HCl 20 mg 10/08/23 07:24 Hydralazine Hcl 20 Mg/Ml Vial IV PUSH Q6HR PRN hypertension Dextrose 1,000 mls @ 100 mls/hr 10/07/23 17:45 Dextrose 5% 1,000 Ml IVPB PRN PRN Hypoglycemia Protocol Azithromycin 500 mg in 250 mls @ 250 mls/hr 10/10/23 19:00 10/11/23 19:40 Zithromax IVPB 10/12/23 19:59 Infused Q24H GEOFFREY Infusion Ceftriaxone Sodium 1 gm in 50 mls @ 100 mls/hr 10/10/23 18:00 10/11/23 18:00 Rocephin 1 Gm/Ns 50 Ml IVPB 10/14/23 18:29 Infused Q24H GEOFFREY Infusion Sodium Chloride 1,000 mls @ 75 mls/hr 10/11/23 12:55 10/12/23 06:54 Normal Saline Iv IV CONT 75 mls/hr .[id number] GEOFFREY Administration Insulin Aspart 2 - 5 units 10/08/23 08:00 10/12/23 08:15 Insulin Aspart (*Bkc) 100 Units/Ml SUB-Q Not Given TIDWM [facility] Protocol Levetiracetam 500 mg 10/08/23 21:00 10/11/23 20:44 Levetiracetam 500 Mg Tablet PO 500 mg Q12HR GEOFFREY Administration Melatonin 10 mg 10/07/23 21:00 10/11/23 20:44 Melatonin 5 Mg Tablet PO 10 mg HS GEOFFREY Administration Nifedipine 60 mg 10/08/23 09:00 10/11/23 09:39 Nifedipine 30 Mg Tab.Er.24 PO 60 mg QAM GEOFFREY Administration Ondansetron HCl 4 mg 10/07/23 14:36 Ondansetron Inj 4 Mg/2 Ml Vial IV PUSH Q4H PRN Nausea Pantoprazole Sodium 40 mg 10/08/23 09:00 10/11/23 09:39 Pantoprazole 40 Mg Tablet PO 11/07/23 08:59 40 mg DAILY GEOFFREY Administration Ramipril 10 mg 10/08/23 09:00 10/11/23 09:40 Ramipril 5 Mg Capsule PO 10 mg DAILY GEOFFREY Administration Radiology Results: ITS Impressions Head CT 10/07/23 14:07 IMPRESSION: No acute intracranial findings. Abdomen Ultrasound 10/07/23 16:04 IMPRESSION: 1. Nonvisualization of the gallbladder and pancreas. Otherwise, Unremarkable limited ultrasound of the abdomen. Brain MRI 10/08/23 08:09 IMPRESSION: 1. No acute intracranial process. 2. No abnormal enhancement. 3. Old lacunar infarcts in the right cam radiata and centrum semiovale. Old lacunar infarcts in the jamie. Chest X-Ray 10/10/23 16:44 IMPRESSION: Presumed discoid atelectasis in the right midlung. Streaky left basilar atelectasis/scar. Small left pleural effusion. Infection is not excluded. Carotid Doppler Study 10/11/23 07:03 IMPRESSION: 1. 50-69% stenosis in the right internal carotid artery. 2. <50% stenosis in the left internal carotid artery. Labs Labs: Laboratory Results - last 24 hr 10/11/23 10/11/23 10/11/23 11:52 13:17 16:55 WBC RBC Hgb Hct MCV MCH MCHC RDW Plt Count MPV Puncture Site Right radial ABG pH 7.402 ABG pCO2 44.2 ABG pO2 74.4 L ABG PO2/FiO2 Ratio 2.33 ABG HCO3 26.9 H ABG O2 Saturation 94.9 L ABG O2 Content 12.9 L ABG Base Excess 1.8 A-a Gradient 102.0 Oxyhemoglobin 93.7 Total Hemoglobin 9.7 L O2 Delivery Device Nasal cannula O2 Liters/Min 3.0 FiO2 32 Sodium Potassium Chloride Carbon Dioxide Anion Gap BUN Creatinine Estim Creat Clear Calc Estimated GFR Glucose POC Capillary Glucose 126 H 133 H Calcium Total Bilirubin AST ALT Alkaline Phosphatase Total Protein Albumin 10/11/23 10/12/23 10/12/23 19:22 05:00 08:00 WBC 10.2 H RBC 3.21 L Hgb 8.9 L Hct 28.6 L MCV 89.1 MCH 27.7 MCHC 31.1 L RDW 14.9 H Plt Count 249 MPV 11.5 H Puncture Site ABG pH ABG pCO2 ABG pO2 ABG PO2/FiO2 Ratio ABG HCO3 ABG O2 Saturation ABG O2 Content ABG Base Excess A-a Gradient Oxyhemoglobin Total Hemoglobin O2 Delivery Device O2 Liters/Min FiO2 Sodium 133 L Potassium 4.0 Chloride 102 Carbon Dioxide 25 Anion Gap 6 BUN 21 H Creatinine 1.50 H Estim Creat Clear Calc 47 Estimated GFR 47 L Glucose 161 H POC Capillary Glucose 175 H 146 H Calcium 7.7 L Total Bilirubin 0.2 AST 26 ALT 11 Alkaline Phosphatase 88 Total Protein 6.0 L Albumin 2.8 L
[2023-10-12] MEDS: ASPIRIN 325 MG TABLET PO (09:15)
[2023-10-12] MEDS: ENOXAPARIN 40 MG/0.4 ML SYRINGE SUB-Q (09:15)
[2023-10-12] MEDS: carvediloL 25 MG TABLET PO ×2 (09:15→17:53)
[2023-10-12] MEDS: CLOPIDOGREL BISULFATE 75 MG TABLET PO (09:15)
[2023-10-12] MEDS: NIFEdipine 30 MG TAB.ER.24 60 MG PO (09:15)
[2023-10-12] MEDS: OMEGA 3 POLYUNSAT FATTY ACIDS 1 GM CAP PO (09:16)
[2023-10-12] MEDS: FUROSEMIDE 40 MG TABLET PO ×2 (09:16→17:53)
[2023-10-12] MEDS: PANTOPRAZOLE 40 MG TABLET PO (09:16)
[2023-10-12] MEDS: levETIRAcetam 500 MG TABLET PO ×2 (09:16→20:24)
[2023-10-12] MEDS: ramipriL 5 MG CAPSULE 10 MG PO (09:16)
[2023-10-12 12:04] LABS: Glucose Point of Care 214 mg/dl (65-105)
[2023-10-12] MEDS: INSULIN ASPART (*BKC) 100 UNITS/ML SUB-Q (12:08)
--- NOTE | 2023-10-12 13:05 | PCPTNOTE ---
13:05 Pt refused due to nausea. Pt's states they are bringing nausea meds. Will make 2nd attempt.
--- NOTE | 2023-10-12 13:10 | P.DS_ITS ---
DS: Summary Time Spent with Patient Time attestation: Total time spent providing and/or coordinating discharge services: DS: Data Data Completed and Pending Labs on day of discharge: Labs from last 24 hours 10/12/23 10/12/23 10/12/23 12:00 08:00 05:00 WBC 10.2 H RBC 3.21 L Hgb 8.9 L Hct 28.6 L MCV 89.1 MCH 27.7 MCHC 31.1 L RDW 14.9 H Plt Count 249 MPV 11.5 H Puncture Site ABG pH ABG pCO2 ABG pO2 ABG PO2/FiO2 Ratio ABG HCO3 ABG O2 Saturation ABG O2 Content ABG Base Excess A-a Gradient Oxyhemoglobin Total Hemoglobin O2 Delivery Device O2 Liters/Min FiO2 Sodium 133 L Potassium 4.0 Chloride 102 Carbon Dioxide 25 Anion Gap 6 BUN 21 H Creatinine 1.50 H Estim Creat Clear Calc 47 Estimated GFR 47 L Glucose 161 H POC Capillary Glucose 214 H 146 H Calcium 7.7 L Total Bilirubin 0.2 AST 26 ALT 11 Alkaline Phosphatase 88 Total Protein 6.0 L Albumin 2.8 L 10/11/23 10/11/23 10/11/23 19:22 16:55 13:17 WBC RBC Hgb Hct MCV MCH MCHC RDW Plt Count MPV Puncture Site Right radial ABG pH 7.402 ABG pCO2 44.2 ABG pO2 74.4 L ABG PO2/FiO2 Ratio 2.33 ABG HCO3 26.9 H ABG O2 Saturation 94.9 L ABG O2 Content 12.9 L ABG Base Excess 1.8 A-a Gradient 102.0 Oxyhemoglobin 93.7 Total Hemoglobin 9.7 L O2 Delivery Device Nasal cannula O2 Liters/Min 3.0 FiO2 32 Sodium Potassium Chloride Carbon Dioxide Anion Gap BUN Creatinine Estim Creat Clear Calc Estimated GFR Glucose POC Capillary Glucose 175 H 133 H Calcium Total Bilirubin AST ALT Alkaline Phosphatase Total Protein Albumin Discharge Plan Discharge Attending physician on discharge: Kvng Disla Consulting providers: Magda Deluna; Matt Yusuf; Bismark Anguiano Discharging Clinician: Mahamed Sewell Activity: may shower, unlimited and as tolerated Diet: diabetic, low sodium and low fat Discharge Instructions: * Discharge disposition: Home * Take medications as prescribed * Monitor blood pressures * Avoid social areas, you wear a mask when in social settings * Encouraged to continue with yearly vaccinations * If you developed sudden shortness of breath, chest pain, nausea, vomiting, upset stomach or intractable diarrhea * Return to the emergency department if you develop fever greater than 101.5 * Follow-up with the primary care physician within 1-2 weeks * Thank you for [facility] for your healthcare needs Patient Instructions: Antibiotic Form, Heart Failure (ED) Stand Alone Forms: General Discharge Information Follow-up/Referrals: Magda Deluna MD [Physician] - Call for Appointment Sharmila,Shane Miranda MD [Primary Care Provider] - Call for Appointment Matt Yusuf MD [Physician] - Call for Appointment Discharge Medications: New levetiracetam [Keppra] 500 mg Tablet 500 mg PO Q12HR Qty: 60 0RF Continued paroxetine HCl 20 mg tablet 40 mg PO DAILY omeprazole 20 mg capsule,delayed release(DR/EC) 20 mg PO DAILY ramipril 10 mg capsule 10 mg PO DAILY Hold Instructions: Hold this medicine and speak with your family doctor if you are to resume. glipizide 5 mg tablet 10 mg PO BID Patient Comments: out 2-3 days ago unable to refill until dr appointment on october 01 clopidogrel 75 mg tablet 75 mg PO DAILY Patient Comments: pt ran out of meds about 2-3 days ago informed physician reported needed to wait until appointment on october 01 to get med refilled aspirin 325 mg Capsule 325 mg PO DAILY guaifenesin [Mucus Relief ER] 600 mg Tablet Extended Release 12hr 1,200 mg PO Q12HR Qty: 14 0RF atorvastatin 80 mg Tablet 80 mg PO HS 30 Days Qty: 30 0RF melatonin 3 mg tablet 10 mg PO HS insulin lispro 100 unit/mL Insulin Pen 1 sliding scale dose SUBCUT USEASDIRECTD Rx Instructions: pt does have home sliding scale doesn't need often sugars are controlled carvedilol [Coreg] 25 mg Tablet 25 mg PO BIDWM Qty: 60 0RF furosemide 20 mg tablet 20 mg PO DAILY Qty: 30 0RF nifedipine [Procardia XL] 30 mg Tablet Extended Release 24hr 60 mg PO QAM Qty: 30 0RF albuterol sulfate 90 mcg/actuation HFA aerosol inhaler 2 puff inhalation PRN PRN (Reason: shortness of breath or wheezing) omega 4-cir-khj-fish oil [Fish Oil] 60-90-500 mg Capsule 1 cap PO DAILY gabapentin 100 mg Capsule 100 mg PO TID Qty: 90 0RF Date of admission: 10/11/23 10:45 Primary Care Provider: Sharmila,Shane Miranda Admitting Provider: Brennan Barrett Attending physician on admission: Amarilys Johnston Condition: Stable
--- NOTE | 2023-10-12 13:26 | P.PNNEUR_ITS ---
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 Hallucinations have completely disappeared but his wanted to have more discussion regarding the ongoing problems. And we advised him that he is taking multiple medications which include the levetiracetam 500mg q.12 hours for the ongoing possibility of the seizure because of the underlying stroke, but if hallucination becomes more of her difficulties began starting Zyprexa but at present according the nurses he is doing well. He will continue on aspirin 325mg daily along with atorvastatin 80mg at night, and clopidogrel 75mg daily only for the 6 week then he will DC the Plavix and continue the rest of the medication as such he looks stable and can be discharged whenever feasible Objective Data Vital Signs Vital Signs: Vital Signs - 24 hr 10/11/23 14:00 10/11/23 16:00 10/11/23 17:29 Temperature 37.0 C Pulse Rate 64 62 62 Respiratory Rate 20 Blood Pressure 145/60 H Pulse Oximetry 99 Oxygen Delivery Oxygen Flow Rate 10/11/23 19:19 10/11/23 20:00 10/12/23 02:45 Temperature 35.8 C L Pulse Rate 63 Respiratory Rate 18 Blood Pressure 152/56 H Pulse Oximetry 94 94 92 Oxygen Delivery High Flow Nasal Cannula Nasal Cannula Oxygen Flow Rate 3 2 10/12/23 04:28 10/11/23 20:00 10/12/23 00:00 Temperature 36.3 C L Pulse Rate 75 64 82 Respiratory Rate 20 Blood Pressure 179/55 H Pulse Oximetry 97 Oxygen Delivery Oxygen Flow Rate 10/12/23 04:00 10/12/23 09:15 10/12/23 09:15 Temperature Pulse Rate 77 71 Respiratory Rate Blood Pressure Pulse Oximetry 97 Oxygen Delivery Nasal Cannula Oxygen Flow Rate 2 10/12/23 08:00 10/12/23 12:00 Temperature Pulse Rate 83 70 Respiratory Rate Blood Pressure Pulse Oximetry Oxygen Delivery Oxygen Flow Rate Intake/Output Intake/Output: Intake & Output 10/09/23 10/10/23 10/11/23 10/12/23 23:59 23:59 23:59 23:59 Intake Total 360 3887.7 420 1814 Output Total 875 1200 Balance -515 2687.7 420 1814 Meds/Results Medications: Active Medications Generic Name Dose Route Start Last Admin Trade Name Freq PRN Reason Stop Dose Admin Acetaminophen 650 mg 10/07/23 14:36 10/08/23 19:42 Acetaminophen 325 Mg Tablet PO 650 mg Q4H PRN Administration Mild Pain (1-3) or Fever Albuterol 2 puff 10/07/23 17:56 Albuterol Sulfate (*Sp) Aerosol 1 Puff INHALATION PRN PRN shortness of breath or wheezing Aspirin 325 mg 10/08/23 09:00 10/12/23 09:15 Aspirin 325 Mg Tablet PO 11/07/23 08:59 325 mg DAILY GEOFFREY Administration Atorvastatin Calcium 80 mg 10/07/23 21:00 10/11/23 20:44 Atorvastatin 40 Mg Tablet PO 80 mg HS GEOFFREY Administration Carvedilol 25 mg 10/08/23 08:00 10/12/23 09:15 Carvedilol 25 Mg Tablet PO 25 mg BIDWM GEOFFREY Administration Clopidogrel Bisulfate 75 mg 10/08/23 09:00 10/12/23 09:15 Clopidogrel Bisulfate 75 Mg Tablet PO 75 mg DAILY GEOFFREY Administration Dextrose 12.5 gm 10/07/23 17:45 Dextrose 50% 25 Gm/50 Ml Syringe IV PUSH PRN PRN Hypoglycemia Protocol Enoxaparin Sodium 40 mg 10/08/23 09:00 10/12/23 09:15 Enoxaparin 40 Mg/0.4 Ml Syringe SUB-Q 40 mg DAILY GEOFFREY Administration Fish Oil 1 gm 10/08/23 09:00 10/12/23 09:16 [place] 3 Polyunsat Fatty Acids 1 Gm Cap PO 11/07/23 08:59 1 gm DAILY GEOFFREY Administration Furosemide 40 mg 10/11/23 09:57 10/12/23 09:16 Furosemide 40 Mg Tablet PO 40 mg BID GEOFFREY Administration Gabapentin 100 mg 10/07/23 22:00 10/12/23 06:54 Gabapentin 100 Mg Capsule PO 100 mg Q8HR GEOFFREY Administration Glucagon 1 mg 10/07/23 17:45 Glucagon For Inj 1 Mg Vial IM PRN PRN Hypoglycemia Protocol Glucagon 1 mg 10/08/23 07:27 Glucagon For Inj 1 Mg Vial IM PRN PRN Hypoglycemia Protocol Glucose 15 gm 10/07/23 17:45 Glucose Oral Gel 15 Gm Of Glucse In 37.5 Gm Tube PO PRN PRN Hypoglycemia Protocol Hydralazine HCl 20 mg 10/08/23 07:24 Hydralazine Hcl 20 Mg/Ml Vial IV PUSH Q6HR PRN hypertension Dextrose 1,000 mls @ 100 mls/hr 10/07/23 17:45 Dextrose 5% 1,000 Ml IVPB PRN PRN Hypoglycemia Protocol Azithromycin 500 mg in 250 mls @ 250 mls/hr 10/10/23 19:00 10/11/23 19:40 Zithromax IVPB 10/12/23 19:59 Infused Q24H GEOFFREY Infusion Ceftriaxone Sodium 1 gm in 50 mls @ 100 mls/hr 10/10/23 18:00 10/11/23 18:00 Rocephin 1 Gm/Ns 50 Ml IVPB 10/14/23 18:29 Infused Q24H GEOFFREY Infusion Sodium Chloride 1,000 mls @ 75 mls/hr 10/11/23 12:55 10/12/23 06:54 Normal Saline Iv IV CONT 75 mls/hr .[id number] GEOFFREY Administration Insulin Aspart 2 - 5 units 10/08/23 08:00 10/12/23 12:08 Insulin Aspart (*Bkc) 100 Units/Ml SUB-Q 2 units TIDWM GEOFFREY Administration Protocol Levetiracetam 500 mg 10/08/23 21:00 10/12/23 09:16 Levetiracetam 500 Mg Tablet PO 500 mg Q12HR GEOFFREY Administration Melatonin 10 mg 10/07/23 21:00 10/11/23 20:44 Melatonin 5 Mg Tablet PO 10 mg HS GEOFFREY Administration Nifedipine 60 mg 10/08/23 09:00 10/12/23 09:15 Nifedipine 30 Mg Tab.Er.24 PO 60 mg QAM GEOFFREY Administration Ondansetron HCl 4 mg 10/07/23 14:36 Ondansetron Inj 4 Mg/2 Ml Vial IV PUSH Q4H PRN Nausea Pantoprazole Sodium 40 mg 10/08/23 09:00 10/12/23 09:16 Pantoprazole 40 Mg Tablet PO 11/07/23 08:59 40 mg DAILY GEOFFREY Administration Ramipril 10 mg 10/08/23 09:00 10/12/23 09:16 Ramipril 5 Mg Capsule PO 10 mg DAILY GEOFFREY Administration Radiology Results: ITS Impressions Head CT 10/07/23 14:07 IMPRESSION: No acute intracranial findings. Abdomen Ultrasound 10/07/23 16:04 IMPRESSION: 1. Nonvisualization of the gallbladder and pancreas. Otherwise, Unremarkable limited ultrasound of the abdomen. Brain MRI 10/08/23 08:09 IMPRESSION: 1. No acute intracranial process. 2. No abnormal enhancement. 3. Old lacunar infarcts in the right cam radiata and centrum semiovale. Old lacunar infarcts in the jamie. Chest X-Ray 10/10/23 16:44 IMPRESSION: Presumed discoid atelectasis in the right midlung. Streaky left basilar atelectasis/scar. Small left pleural effusion. Infection is not excluded. Carotid Doppler Study 10/11/23 07:03 IMPRESSION: 1. 50-69% stenosis in the right internal carotid artery. 2. <50% stenosis in the left internal carotid artery. Labs Labs: Laboratory Results - last 24 hr 10/11/23 10/11/23 10/12/23 16:55 19:22 05:00 WBC 10.2 H RBC 3.21 L Hgb 8.9 L Hct 28.6 L MCV 89.1 MCH 27.7 MCHC 31.1 L RDW 14.9 H Plt Count 249 MPV 11.5 H Sodium 133 L Potassium 4.0 Chloride 102 Carbon Dioxide 25 Anion Gap 6 BUN 21 H Creatinine 1.50 H Estim Creat Clear Calc 47 Estimated GFR 47 L Glucose 161 H POC Capillary Glucose 133 H 175 H Calcium 7.7 L Total Bilirubin 0.2 AST 26 ALT 11 Alkaline Phosphatase 88 Total Protein 6.0 L Albumin 2.8 L 10/12/23 10/12/23 08:00 12:00 WBC RBC Hgb Hct MCV MCH MCHC RDW Plt Count MPV Sodium Potassium Chloride Carbon Dioxide Anion Gap BUN Creatinine Estim Creat Clear Calc Estimated GFR Glucose POC Capillary Glucose 146 H 214 H Calcium Total Bilirubin AST ALT Alkaline Phosphatase Total Protein Albumin
[2023-10-12 16:39] LABS: Glucose Point of Care 148 mg/dl (65-105)
[2023-10-12] MEDS: AZITHROMYCIN 500 MG/NS 250 ML 500 MG/250 ML BAG 250 MG IVPB (18:51)
[2023-10-12] MEDS: ATORVASTATIN 40 MG TABLET 80 MG PO (20:24)
[2023-10-12] MEDS: MELATONIN 5 MG TABLET 10 MG PO (20:24)
[2023-10-12 20:48] LABS: Glucose Point of Care 201 mg/dl (65-105)
[2023-10-13] VITALS (7 sets, daily range): BP systolic 131–150; BP diastolic 52–66; PULSE 60–64; RESP 18–20; TEMP 36.5–36.8; O2SAT 94–99
[2023-10-13 05:31] LABS: Hematocrit 27.2 % (42.0-52.0); Hemoglobin 8.3 g/dL (14.0-18.0); Mean Corpuscular HGB Conc 30.5 g/dl (32-36); Mean Corpuscular Volume 88.6 fl (80-100); Mean Platelet Volume 11.7 fl (7.4-10.4); Platelet Count Result 222 k/mm3 (150-375); Red Blood Count 3.07 M/mm3 (4.6-6.20); Red Cell Distribution Width 14.9 % (11.5-14.5); White Blood Count 10.1 K/mm3 (4.5-10.0)
[2023-10-13 05:40] LABS: Alanine Aminotransferase 12 U/L (6-50); Albumin Level 2.7 g/dL (3.5-5.1); Alkaline Phosphatase 74 U/L (38-126); Anion Gap 6 mmol/L (4-12); Aspartate Amino Transferase 19 U/L (17-59); Bilirubin,Total 0.2 mg/dL (0.2-1.3); Blood Urea Nitrogen 22 mg/dL (9-20); Calcium 7.5 mg/dL (8.4-10.2); Carbon Dioxide 25 mmol/L (22-30); Chloride 104 mmol/L (98-107); Estimated CRCL calculation 44 ml/min; Estimated Glomerular Filt Rate 44; Glucose 151 mg/dL (65-110); Potassium 3.8 mmol/L (3.4-5.0); Sodium 135 mmol/L (137-145)
[2023-10-13] MEDS: SODIUM CHLORIDE 0.9% IV 1,000 ML 75 ML IV CONT (06:24)
[2023-10-13] MEDS: GABAPENTIN 100 MG CAPSULE PO ×3 (06:24→21:17)
--- NOTE | 2023-10-13 08:01 | P.PNIM_ITS ---
Progress Note: A&P Assessment and Plan (1) Acute hypoxemic respiratory failure: Code(s): J96.01 - Acute respiratory failure with hypoxia Status: Acute (2) Hallucinations, visual: Code(s): R44.1 - Visual hallucinations Status: Acute (3) Heart failure with preserved ejection fraction: Qualifiers: Heart failure chronicity: acute on chronic Qualified Code(s): I50.33 - Acute on chronic diastolic (congestive) heart failure Code(s): I50.30 - Unspecified diastolic (congestive) heart failure Status: Acute (4) Hypertension: Qualifiers: Hypertension type: unspecified Qualified Code(s): I10 - Essential (primary) hypertension Code(s): I10 - Essential (primary) hypertension Status: Chronic (5) Insulin dependent type 2 diabetes mellitus: Code(s): E11.9 - Type 2 diabetes mellitus without complications; Z79.4 - keno terminal operator (current) use of insulin Status: Chronic (6) Paroxysmal atrial fibrillation: Code(s): I48.0 - Paroxysmal atrial fibrillation Status: Acute (7) Vascular dementia: Code(s): F01.50 - Vascular dementia, unspecified severity, without behavioral disturbance, psychotic disturbance, mood disturbance, and anxiety Status: Acute (8) Chronic anemia: Code(s): D64.9 - Anemia, unspecified Status: Acute (9) Altered mental status: Code(s): R41.82 - Altered mental status, unspecified Status: Acute (10) Acute kidney injury superimposed on CKD: Code(s): N17.9 - Acute kidney failure, unspecified; N18.9 - Chronic kidney disease, unspecified Status: Acute Plan This is a 63-year-old male with history of strokes, vascular dementia, bipolar disorder, coronary artery disease status post 3 vessel coronary artery bypass, heart failure with preserved ejection fraction, paroxysmal atrial fibrillation not on chronic anticoagulation, peripheral arterial disease, hypertension, chronic kidney disease, chronic anemia, and insulin-dependent type 2 diabetes mellitus who presented to the emergency department for evaluation of altered mental status. He was admitted to the hospital about 4 weeks ago after presenting with shortness of breath and abdominal pain. He was treated for congestive heart failure, pneumonia, and cholecystitis status post cholecystostomy tube and was discharged home on Augmentin, Bactrim, and Flagyl. He has been doing pretty well in that regard. Over the last couple of days he has become altered. He is having hallucinations Altered mental status Patient presented hallucination and change of mental status, patient was noticed to have seizure activity Possible due to multiple causes including seizure, polypharmacy, dehydration, metabolic disorder on the base of possible ischemic dementia Patient received IV fluid Neurologist is consulted Treat underlying disease Patient ALERT ORIENTED X3 History of stroke Patient is on aspirin 325 mg daily p.o.,, Plavix 75 mg daily p.o., Lipitor 80 mg daily p.o. Management per neurologist Seizure patient is on seizure medication Keppra 500 mg b.i.d. p.o. Management per neurologist CKD stage 3 Elevated BUN creatinine ratio, close to baseline Acute on chronic respiratory failure Chest x-ray reports discoid atelectasis in the right midlung. Streaky left basilar atelectasis/scar Possible due to atelectasis, fluid overload, YOLANDA Patient does not need oxygen at home, Will consult outsole beveler for evaluation treatment Diastolic heart failure, Recent echocardiogram showed EF 60-65%, grade 1 diastolic function Received IV Lasix 40 mg b.i.d. IV push. Switch furosemide 40 mg b.i.d. IV to b.i.d. p.o. Essential hypertension Patient is on nifedipine 60 mg daily p.o. ramipril 10 mg daily p.o. Patient needs oxygen supplies after discharge, consult youth care worker for assisting placement Patient is awaiting for placement Subjective Date/time seen: 10/13/23 08:01 Interval history: I saw examined patient today in the morning, no new issue even over the night, patient was alert oriented x3, denied headache, palpitation, short of breath. Patient still needs 2 L oxygen today Exam Narrative: GENERAL: Pleasant, in no acute distress. Well-nourished. - EYES: EOMI. Anicteric. - HENT: Moist mucous membranes. - LUNGS: Clear to auscultation bilateral ly, no wheezing, rhonchi, or rales. - CARDIOVASCULAR: Regular rate and rhyth m. No murmur. No JVD. - ABDOMEN: Soft, non-tender and non-dist ended. No palpable masses. - EXTREMITIES: No edema. Peripheral puls es 2+. Non-tender. - NEUROLOGIC: No focal neurological defi cits. CN II-XII grossly intact. - PSYCHIATRIC: Awake, Alert and oriented x 3. Appropriate mood and affect. - SKIN: No rashes or lesions. Warm. - LYMPH: No cervical lymphadenopathy. Objective Data Vital Signs Vital Signs: Vital Signs - 24 hr 10/12/23 09:15 10/12/23 09:15 10/12/23 12:00 Temperature Pulse Rate 71 70 Respiratory Rate Blood Pressure Pulse Oximetry 97 Oxygen Delivery Nasal Cannula Oxygen Flow Rate 2 10/12/23 14:00 10/12/23 17:53 10/12/23 16:00 Temperature 97.6 F Pulse Rate 72 72 64 Respiratory Rate 19 Blood Pressure 150/58 H Pulse Oximetry 96 Oxygen Delivery Oxygen Flow Rate 10/12/23 20:00 10/12/23 20:00 10/13/23 05:13 Temperature 97.8 F 98.3 F Pulse Rate 65 64 Respiratory Rate 18 18 Blood Pressure 113/52 L 131/52 L Pulse Oximetry 97 97 94 Oxygen Delivery Nasal Cannula Oxygen Flow Rate 2 10/12/23 21:20 Temperature Pulse Rate Respiratory Rate Blood Pressure Pulse Oximetry 95 Oxygen Delivery High Flow Nasal Cannula Oxygen Flow Rate 2 Intake/Output Intake/Output: Intake & Output 10/10/23 10/11/23 10/12/23 10/13/23 23:59 23:59 23:59 23:59 Intake Total 3887.7 420 2909.7 938.8 Output Total 1200 350 500 Balance 2687.7 420 2559.7 438.8 Meds/Results Medications: Active Medications Generic Name Dose Route Start Last Admin Trade Name Freq PRN Reason Stop Dose Admin Acetaminophen 650 mg 10/07/23 14:36 10/08/23 19:42 Acetaminophen 325 Mg Tablet PO 650 mg Q4H PRN Administration Mild Pain (1-3) or Fever Albuterol 2 puff 10/07/23 17:56 Albuterol Sulfate (*Sp) Aerosol 1 Puff INHALATION PRN PRN shortness of breath or wheezing Aspirin 325 mg 10/08/23 09:00 10/12/23 09:15 Aspirin 325 Mg Tablet PO 11/07/23 08:59 325 mg DAILY GEOFFREY Administration Atorvastatin Calcium 80 mg 10/07/23 21:00 10/12/23 20:24 Atorvastatin 40 Mg Tablet PO 80 mg HS GEOFFREY Administration Carvedilol 25 mg 10/08/23 08:00 10/12/23 17:53 Carvedilol 25 Mg Tablet PO 25 mg BIDWM GEOFFREY Administration Clopidogrel Bisulfate 75 mg 10/08/23 09:00 10/12/23 09:15 Clopidogrel Bisulfate 75 Mg Tablet PO 75 mg DAILY GEOFFREY Administration Dextrose 12.5 gm 10/07/23 17:45 Dextrose 50% 25 Gm/50 Ml Syringe IV PUSH PRN PRN Hypoglycemia Protocol Enoxaparin Sodium 40 mg 10/08/23 09:00 10/12/23 09:15 Enoxaparin 40 Mg/0.4 Ml Syringe SUB-Q 40 mg DAILY GEOFFREY Administration Fish Oil 1 gm 10/08/23 09:00 10/12/23 09:16 [place] 3 Polyunsat Fatty Acids 1 Gm Cap PO 11/07/23 08:59 1 gm DAILY GEOFFREY Administration Furosemide 40 mg 10/11/23 09:57 10/12/23 17:53 Furosemide 40 Mg Tablet PO 40 mg BID GEOFFREY Administration Gabapentin 100 mg 10/07/23 22:00 10/13/23 06:24 Gabapentin 100 Mg Capsule PO 100 mg Q8HR GEOFFREY Administration Glucagon 1 mg 10/07/23 17:45 Glucagon For Inj 1 Mg Vial IM PRN PRN Hypoglycemia Protocol Glucagon 1 mg 10/08/23 07:27 Glucagon For Inj 1 Mg Vial IM PRN PRN Hypoglycemia Protocol Glucose 15 gm 10/07/23 17:45 Glucose Oral Gel 15 Gm Of Glucse In 37.5 Gm Tube PO PRN PRN Hypoglycemia Protocol Hydralazine HCl 20 mg 10/08/23 07:24 Hydralazine Hcl 20 Mg/Ml Vial IV PUSH Q6HR PRN hypertension Dextrose 1,000 mls @ 100 mls/hr 10/07/23 17:45 Dextrose 5% 1,000 Ml IVPB PRN PRN Hypoglycemia Protocol Ceftriaxone Sodium 1 gm in 50 mls @ 100 mls/hr 10/10/23 18:00 10/12/23 18:23 Rocephin 1 Gm/Ns 50 Ml IVPB 10/14/23 18:29 Infused Q24H GEOFFREY Infusion Sodium Chloride 1,000 mls @ 75 mls/hr 10/11/23 12:55 10/13/23 06:24 Normal Saline Iv IV CONT 75 mls/hr .[id number] GEOFFREY Administration Insulin Aspart 2 - 5 units 10/08/23 08:00 10/12/23 16:51 Insulin Aspart (*Bkc) 100 Units/Ml SUB-Q Not Given TIDWM [facility] Protocol Levetiracetam 500 mg 10/08/23 21:00 10/12/23 20:24 Levetiracetam 500 Mg Tablet PO 500 mg Q12HR GEOFFREY Administration Melatonin 10 mg 10/07/23 21:00 10/12/23 20:24 Melatonin 5 Mg Tablet PO 10 mg HS GEOFFREY Administration Nifedipine 60 mg 10/08/23 09:00 10/12/23 09:15 Nifedipine 30 Mg Tab.Er.24 PO 60 mg QAM GEOFFREY Administration Ondansetron HCl 4 mg 10/07/23 14:36 Ondansetron Inj 4 Mg/2 Ml Vial IV PUSH Q4H PRN Nausea Pantoprazole Sodium 40 mg 10/08/23 09:00 10/12/23 09:16 Pantoprazole 40 Mg Tablet PO 11/07/23 08:59 40 mg DAILY GEOFFREY Administration Ramipril 10 mg 10/08/23 09:00 10/12/23 09:16 Ramipril 5 Mg Capsule PO 10 mg DAILY GEOFFREY Administration Radiology Results: ITS Impressions Head CT 10/07/23 14:07 IMPRESSION: No acute intracranial findings. Abdomen Ultrasound 10/07/23 16:04 IMPRESSION: 1. Nonvisualization of the gallbladder and pancreas. Otherwise, Unremarkable limited ultrasound of the abdomen. Brain MRI 10/08/23 08:09 IMPRESSION: 1. No acute intracranial process. 2. No abnormal enhancement. 3. Old lacunar infarcts in the right cam radiata and centrum semiovale. Old lacunar infarcts in the jamie. Chest X-Ray 10/10/23 16:44 IMPRESSION: Presumed discoid atelectasis in the right midlung. Streaky left basilar atelectasis/scar. Small left pleural effusion. Infection is not excluded. Carotid Doppler Study 10/11/23 07:03 IMPRESSION: 1. 50-69% stenosis in the right internal carotid artery. 2. <50% stenosis in the left internal carotid artery. Labs Labs: Laboratory Results - last 24 hr 10/12/23 10/12/23 10/12/23 08:00 12:00 16:32 WBC RBC Hgb Hct MCV MCH MCHC RDW Plt Count MPV Sodium Potassium Chloride Carbon Dioxide Anion Gap BUN Creatinine Estim Creat Clear Calc Estimated GFR Glucose POC Capillary Glucose 146 H 214 H 148 H Calcium Total Bilirubin AST ALT Alkaline Phosphatase Total Protein Albumin 10/12/23 10/13/23 19:52 04:52 WBC 10.1 H RBC 3.07 L Hgb 8.3 L Hct 27.2 L MCV 88.6 MCH 27.0 MCHC 30.5 L RDW 14.9 H Plt Count 222 MPV 11.7 H Sodium 135 L Potassium 3.8 Chloride 104 Carbon Dioxide 25 Anion Gap 6 BUN 22 H Creatinine 1.60 H Estim Creat Clear Calc 44 Estimated GFR 44 L Glucose 151 H POC Capillary Glucose 201 H Calcium 7.5 L Total Bilirubin 0.2 AST 19 ALT 12 Alkaline Phosphatase 74 Total Protein 6.0 L Albumin 2.7 L
[2023-10-13 08:38] LABS: Glucose Point of Care 129 mg/dl (65-105)
[2023-10-13] MEDS: FUROSEMIDE 40 MG TABLET PO ×2 (09:23→17:29)
[2023-10-13] MEDS: ASPIRIN 325 MG TABLET PO (09:24)
[2023-10-13] MEDS: OMEGA 3 POLYUNSAT FATTY ACIDS 1 GM CAP PO (09:24)
[2023-10-13] MEDS: CLOPIDOGREL BISULFATE 75 MG TABLET PO (09:24)
[2023-10-13] MEDS: levETIRAcetam 500 MG TABLET PO ×2 (09:24→21:17)
[2023-10-13] MEDS: PANTOPRAZOLE 40 MG TABLET PO (09:24)
[2023-10-13] MEDS: NIFEdipine 30 MG TAB.ER.24 60 MG PO (09:25)
[2023-10-13] MEDS: ramipriL 5 MG CAPSULE 10 MG PO (09:25)
[2023-10-13] MEDS: carvediloL 25 MG TABLET PO ×2 (09:26→17:29)
[2023-10-13] MEDS: ENOXAPARIN 40 MG/0.4 ML SYRINGE SUB-Q (09:26)
[2023-10-13] MEDS: ONDANSETRON INJ 4 MG/2 ML VIAL IV PUSH (12:02)
[2023-10-13 12:43] LABS: Glucose Point of Care 228 mg/dl (65-105)
[2023-10-13] MEDS: INSULIN ASPART (*BKC) 100 UNITS/ML SUB-Q (12:44)
[2023-10-13 17:07] LABS: Glucose Point of Care 172 mg/dl (65-105)
[2023-10-13 21:08] LABS: Appearance Urine Cloudy (Clear); Bacteria Urine 4+ /hpf; Bilirubin Urine Negative (Negative); Blood Urine Negative (Negative); Color Urine Yellow (Yellow); Glucose Urine UA Negative (Negative); Ketones Urine Negative (Negative); Leukocyte Esterase Ur 3+ LEU/UL (Negative); Nitrate Urine Negative (Negative); Non Pathogenic Casts 0-2; Protein Urine 2+ mg/dL (Negative); RBC Urine 0-2 /hpf (0-2); Specific Grav Ur 1.008 (1.001-1.035); Squamous Epithelial Cell Urine None Seen /hpf (Few); Urobilinogen Urine 0.2 mg/dL (<2.0); WBC Urine >100 /hpf (0-3)
[2023-10-13 21:13] LABS: Add Urine Microscopic? YES
[2023-10-13] MEDS: MELATONIN 5 MG TABLET 10 MG PO (21:16)
[2023-10-13] MEDS: ATORVASTATIN 40 MG TABLET 80 MG PO (21:17)
[2023-10-14] VITALS (13 sets, daily range): BP systolic 140–176; BP diastolic 59–61; PULSE 64–72; RESP 18–20; TEMP 36.2–36.8; O2SAT 86–98
[2023-10-14 00:47] LABS: Glucose Point of Care 185 mg/dl (65-105)
[2023-10-14 04:52] LABS: Hematocrit 27.7 % (42.0-52.0); Hemoglobin 8.7 g/dL (14.0-18.0); Mean Corpuscular HGB Conc 31.4 g/dl (32-36); Mean Corpuscular Hemoglobin 27.8 pg (26-34); Mean Corpuscular Volume 88.5 fl (80-100); Mean Platelet Volume 11.3 fl (7.4-10.4); Platelet Count Result 239 k/mm3 (150-375); Red Blood Count 3.13 M/mm3 (4.6-6.20); Red Cell Distribution Width 14.9 % (11.5-14.5)
[2023-10-14 05:08] LABS: Alanine Aminotransferase 11 U/L (6-50); Albumin Level 2.8 g/dL (3.5-5.1); Alkaline Phosphatase 74 U/L (38-126); Anion Gap 6 mmol/L (4-12); Aspartate Amino Transferase 17 U/L (17-59); Bilirubin,Total 0.2 mg/dL (0.2-1.3); Blood Urea Nitrogen 22 mg/dL (9-20); Carbon Dioxide 25 mmol/L (22-30); Chloride 106 mmol/L (98-107); Estimated CRCL calculation 44 ml/min; Estimated Glomerular Filt Rate 44; Glucose 164 mg/dL (65-110); Sodium 137 mmol/L (137-145)
[2023-10-14] MEDS: GABAPENTIN 100 MG CAPSULE PO ×2 (06:50→14:14)
[2023-10-14 07:12] LABS: T3 Free 1.8
--- NOTE | 2023-10-14 08:04 | PM.IMPN ---
Progress Note: A&P Assessment and Plan (1) Acute hypoxemic respiratory failure: Code(s): J96.01 - Acute respiratory failure with hypoxia Status: Acute (2) Hallucinations, visual: Code(s): R44.1 - Visual hallucinations Status: Acute (3) Heart failure with preserved ejection fraction: Qualifiers: Heart failure chronicity: acute on chronic Qualified Code(s): I50.33 - Acute on chronic diastolic (congestive) heart failure Code(s): I50.30 - Unspecified diastolic (congestive) heart failure Status: Acute (4) Hypertension: Qualifiers: Hypertension type: unspecified Qualified Code(s): I10 - Essential (primary) hypertension Code(s): I10 - Essential (primary) hypertension Status: Chronic (5) Insulin dependent type 2 diabetes mellitus: Code(s): E11.9 - Type 2 diabetes mellitus without complications; Z79.4 - residential appraiser (current) use of insulin Status: Chronic (6) Paroxysmal atrial fibrillation: Code(s): I48.0 - Paroxysmal atrial fibrillation Status: Acute (7) Vascular dementia: Code(s): F01.50 - Vascular dementia, unspecified severity, without behavioral disturbance, psychotic disturbance, mood disturbance, and anxiety Status: Acute (8) Chronic anemia: Code(s): D64.9 - Anemia, unspecified Status: Acute (9) Altered mental status: Code(s): R41.82 - Altered mental status, unspecified Status: Acute (10) Acute kidney injury superimposed on CKD: Code(s): N17.9 - Acute kidney failure, unspecified; N18.9 - Chronic kidney disease, unspecified Status: Acute Plan This is a 63-year-old male with history of strokes, vascular dementia, bipolar disorder, coronary artery disease status post 3 vessel coronary artery bypass, heart failure with preserved ejection fraction, paroxysmal atrial fibrillation not on chronic anticoagulation, peripheral arterial disease, hypertension, chronic kidney disease, chronic anemia, and insulin-dependent type 2 diabetes mellitus who presented to the emergency department for evaluation of altered mental status. He was admitted to the hospital about 4 weeks ago after presenting with shortness of breath and abdominal pain. He was treated for congestive heart failure, pneumonia, and cholecystitis status post cholecystostomy tube and was discharged home on Augmentin, Bactrim, and Flagyl. He has been doing pretty well in that regard. Over the last couple of days he has become altered. He is having hallucinations Altered mental status Patient presented hallucination and change of mental status, patient was noticed to have seizure activity Possible due to multiple causes including seizure, polypharmacy, dehydration, metabolic disorder on the base of possible ischemic dementia Patient received IV fluid Neurologist is consulted Treat underlying disease Patient ALERT ORIENTED X3 History of stroke Patient is on aspirin 325 mg daily p.o.,, Plavix 75 mg daily p.o., Lipitor 80 mg daily p.o. Management per neurologist Seizure patient is on seizure medication Keppra 750 mg b.i.d. p.o. Management per neurologist CKD stage 3 Elevated BUN creatinine ratio, close to baseline UTI UA shows pyuria Received ceftriaxone 1 g IV daily x4, switch to cefdinir p.o. at discharge Acute on chronic respiratory failure Chest x-ray reports discoid atelectasis in the right midlung. Streaky left basilar atelectasis/scar Possible due to atelectasis, fluid overload, YOLANDA Patient did not need oxygen at home, now on 2 L Oxygen supply have been set up at home for care trainer Diastolic heart failure, Recent echocardiogram showed EF 60-65%, grade 1 diastolic function Received IV Lasix 40 mg b.i.d. IV push. Switch furosemide 40 mg b.i.d. IV to b.i.d. p.o. Compensated Essential hypertension Patient is on nifedipine 60 mg daily p.o. ramipril 10 mg daily p.o. Patient wishes to discharge patient. Patient declined rehab placement Subjective Date/time seen: 10/14/23 08:04 Interval history: I saw examined patient today in the morning, no new issue even over the night, patient was alert oriented x3, denied headache, palpitation, short of breath. Patient still needs 2 L oxygen today Exam Narrative: GENERAL: Pleasant, in no acute distress. Well-nourished. - EYES: EOMI. Anicteric. - HENT: Moist mucous membranes. - LUNGS: Clear to auscultation bilaterally, no wheezing, rhonchi, or rales. - CARDIOVASCULAR: Regular rate and rhythm. No murmur. No JVD. - ABDOMEN: Soft, non-tender and non-distended. No palpable masses. - EXTREMITIES: No edema. Peripheral pulses 2+. Non-tender. - NEUROLOGIC: No focal neurological deficits. CN II-XII grossly intact. - PSYCHIATRIC: Awake, Alert and oriented x 3. Appropriate mood and affect. - SKIN: No rashes or lesions. Warm. - LYMPH: No cervical lymphadenopathy. Objective Data Vital Signs Vital Signs: Vital Signs - 24 hr 10/13/23 09:26 10/13/23 09:20 10/13/23 14:00 Temperature 97.8 F Pulse Rate 62 64 Respiratory Rate 19 Blood Pressure 136/58 L Pulse Oximetry 94 96 Oxygen Delivery High Flow Nasal Cannula Oxygen Flow Rate 2 Fraction of Inspired Oxygen 10/13/23 17:29 10/13/23 20:00 10/13/23 20:22 Temperature 97.7 F Pulse Rate 64 60 Respiratory Rate 20 Blood Pressure 150/66 H Pulse Oximetry 95 99 Oxygen Delivery Nasal Cannula Oxygen Flow Rate 2 Fraction of Inspired Oxygen 10/14/23 04:35 10/14/23 08:00 Temperature 98.2 F Pulse Rate 64 Respiratory Rate 18 Blood Pressure 142/61 H Pulse Oximetry 96 95 Oxygen Delivery Nasal Cannula Oxygen Flow Rate 2 Fraction of Inspired Oxygen 28 Intake/Output Intake/Output: Intake & Output 10/11/23 10/12/23 10/13/23 10/14/23 23:59 23:59 23:59 23:59 Intake Total 420 3159.7 1828.8 0 Output Total 350 1100 700 Balance 420 2809.7 728.8 -700 Meds/Results Medications: Active Medications Generic Name Dose Route Start Last Admin Trade Name Freq PRN Reason Stop Dose Admin Acetaminophen 650 mg 10/07/23 14:36 10/08/23 19:42 Acetaminophen 325 Mg Tablet PO 650 mg Q4H PRN Administration Mild Pain (1-3) or Fever Albuterol 2 puff 10/07/23 17:56 Albuterol Sulfate (*Sp) Aerosol 1 Puff INHALATION PRN PRN shortness of breath or wheezing Aspirin 325 mg 10/08/23 09:00 10/13/23 09:24 Aspirin 325 Mg Tablet PO 11/07/23 08:59 325 mg DAILY GEOFFREY Administration Atorvastatin Calcium 80 mg 10/07/23 21:00 10/13/23 21:17 Atorvastatin 40 Mg Tablet PO 80 mg HS GEOFFREY Administration Carvedilol 25 mg 10/08/23 08:00 10/13/23 17:29 Carvedilol 25 Mg Tablet PO 25 mg BIDWM GEOFFREY Administration Clopidogrel Bisulfate 75 mg 10/08/23 09:00 10/13/23 09:24 Clopidogrel Bisulfate 75 Mg Tablet PO 75 mg DAILY GEOFFREY Administration Dextrose 12.5 gm 10/07/23 17:45 Dextrose 50% 25 Gm/50 Ml Syringe IV PUSH PRN PRN Hypoglycemia Protocol Enoxaparin Sodium 40 mg 10/08/23 09:00 10/13/23 09:26 Enoxaparin 40 Mg/0.4 Ml Syringe SUB-Q 40 mg DAILY GEOFFREY Administration Fish Oil 1 gm 10/08/23 09:00 10/13/23 09:24 [place] 3 Polyunsat Fatty Acids 1 Gm Cap PO 11/07/23 08:59 1 gm DAILY GEOFFREY Administration Furosemide 40 mg 10/11/23 09:57 10/13/23 17:29 Furosemide 40 Mg Tablet PO 40 mg BID GEOFFREY Administration Gabapentin 100 mg 10/07/23 22:00 10/14/23 06:50 Gabapentin 100 Mg Capsule PO 100 mg Q8HR GEOFFREY Administration Glucagon 1 mg 10/07/23 17:45 Glucagon For Inj 1 Mg Vial IM PRN PRN Hypoglycemia Protocol Glucagon 1 mg 10/08/23 07:27 Glucagon For Inj 1 Mg Vial IM PRN PRN Hypoglycemia Protocol Glucose 15 gm 10/07/23 17:45 Glucose Oral Gel 15 Gm Of Glucse In 37.5 Gm Tube PO PRN PRN Hypoglycemia Protocol Hydralazine HCl 20 mg 10/08/23 07:24 Hydralazine Hcl 20 Mg/Ml Vial IV PUSH Q6HR PRN hypertension Dextrose 1,000 mls @ 100 mls/hr 10/07/23 17:45 Dextrose 5% 1,000 Ml IVPB PRN PRN Hypoglycemia Protocol Ceftriaxone Sodium 1 gm in 50 mls @ 100 mls/hr 10/10/23 18:00 10/13/23 18:00 Rocephin 1 Gm/Ns 50 Ml IVPB 10/14/23 18:29 Infused Q24H GEOFFREY Infusion Sodium Chloride 1,000 mls @ 75 mls/hr 10/11/23 12:55 10/13/23 06:24 Normal Saline Iv IV CONT 75 mls/hr .[id number] GEOFFREY Administration Insulin Aspart 2 - 5 units 10/08/23 08:00 10/13/23 17:16 Insulin Aspart (*Bkc) 100 Units/Ml SUB-Q Not Given TIDWM [facility] Protocol Levetiracetam 500 mg 10/08/23 21:00 10/13/23 21:17 Levetiracetam 500 Mg Tablet PO 500 mg Q12HR GEOFFREY Administration Melatonin 10 mg 10/07/23 21:00 10/13/23 21:16 Melatonin 5 Mg Tablet PO 10 mg HS GEOFFREY Administration Nifedipine 60 mg 10/08/23 09:00 10/13/23 09:25 Nifedipine 30 Mg Tab.Er.24 PO 60 mg QAM GEOFFREY Administration Ondansetron HCl 4 mg 10/07/23 14:36 10/13/23 12:02 Ondansetron Inj 4 Mg/2 Ml Vial IV PUSH 4 mg Q4H PRN Administration Nausea Pantoprazole Sodium 40 mg 10/08/23 09:00 10/13/23 09:24 Pantoprazole 40 Mg Tablet PO 11/07/23 08:59 40 mg DAILY GEOFFREY Administration Ramipril 10 mg 10/08/23 09:00 10/13/23 09:25 Ramipril 5 Mg Capsule PO 10 mg DAILY GEOFFREY Administration Radiology Results: ITS Impressions Head CT 10/07/23 14:07 IMPRESSION: No acute intracranial findings. Abdomen Ultrasound 10/07/23 16:04 IMPRESSION: 1. Nonvisualization of the gallbladder and pancreas. Otherwise, Unremarkable limited ultrasound of the abdomen. Brain MRI 10/08/23 08:09 IMPRESSION: 1. No acute intracranial process. 2. No abnormal enhancement. 3. Old lacunar infarcts in the right cam radiata and centrum semiovale. Old lacunar infarcts in the jamie. Chest X-Ray 10/10/23 16:44 IMPRESSION: Presumed discoid atelectasis in the right midlung. Streaky left basilar atelectasis/scar. Small left pleural effusion. Infection is not excluded. Carotid Doppler Study 10/11/23 07:03 IMPRESSION: 1. 50-69% stenosis in the right internal carotid artery. 2. <50% stenosis in the left internal carotid artery. Labs Labs: Laboratory Results - last 24 hr 10/10/23 10/13/23 10/13/23 19:00 08:12 12:37 WBC RBC Hgb Hct MCV MCH MCHC RDW Plt Count MPV Sodium Potassium Chloride Carbon Dioxide Anion Gap BUN Creatinine Estim Creat Clear Calc Estimated GFR Glucose POC Capillary Glucose 129 H 228 H Calcium Total Bilirubin AST ALT Alkaline Phosphatase Total Protein Albumin Free T3 pg/mL 1.8 Urine Color Urine Appearance Urine pH Ur Specific [place] Urine Protein Urine Glucose (UA) Urine Ketones Ur Blood (Man) Urine Nitrate Urine Bilirubin Urine Urobilinogen Ur Leukocyte Esterase Urine RBC Urine WBC Ur Squamous Epith Cells Urine Bacteria Urine Casts 10/13/23 10/13/23 10/13/23 16:57 20:32 20:40 WBC RBC Hgb Hct MCV MCH MCHC RDW Plt Count MPV Sodium Potassium Chloride Carbon Dioxide Anion Gap BUN Creatinine Estim Creat Clear Calc Estimated GFR Glucose POC Capillary Glucose 172 H 185 H Calcium Total Bilirubin AST ALT Alkaline Phosphatase Total Protein Albumin Free T3 pg/mL Urine Color Yellow Urine Appearance Cloudy H Urine pH 6.0 Ur Specific [place] 1.008 Urine Protein 2+ H Urine Glucose (UA) Negative Urine Ketones Negative Ur Blood (Man) Negative Urine Nitrate Negative Urine Bilirubin Negative Urine Urobilinogen 0.2 Ur Leukocyte Esterase 3+ H Urine RBC 0-2 Urine WBC >100 H Ur Squamous Epith Cells None seen Urine Bacteria 4+ H Urine Casts 0-2 10/14/23 04:29 WBC 8.0 RBC 3.13 L Hgb 8.7 L Hct 27.7 L MCV 88.5 MCH 27.8 MCHC 31.4 L RDW 14.9 H Plt Count 239 MPV 11.3 H Sodium 137 Potassium 4.0 Chloride 106 Carbon Dioxide 25 Anion Gap 6 BUN 22 H Creatinine 1.60 H Estim Creat Clear Calc 44 Estimated GFR 44 L Glucose 164 H POC Capillary Glucose Calcium 8.0 L Total Bilirubin 0.2 AST 17 ALT 11 Alkaline Phosphatase 74 Total Protein 6.0 L Albumin 2.8 L Free T3 pg/mL Urine Color Urine Appearance Urine pH Ur Specific [place] Urine Protein Urine Glucose (UA) Urine Ketones Ur Blood (Man) Urine Nitrate Urine Bilirubin Urine Urobilinogen Ur Leukocyte Esterase Urine RBC Urine WBC Ur Squamous Epith Cells Urine Bacteria Urine Casts
--- NOTE | 2023-10-14 08:05 | P.DS_ITS ---
DS: Admitting Diagnosis Discharge Date 10/14/23 Admitting Diagnosis (1) Hallucinations, visual: Code(s): R44.1 - Visual hallucinations Status: Acute (2) Muscle twitching: Code(s): R25.3 - Fasciculation Status: Acute (3) Heart failure with preserved ejection fraction: Qualifiers: Heart failure chronicity: acute on chronic Qualified Code(s): I50.33 - Acute on chronic diastolic (congestive) heart failure Code(s): I50.30 - Unspecified diastolic (congestive) heart failure Status: Acute (4) Hypertension: Qualifiers: Hypertension type: unspecified Qualified Code(s): I10 - Essential (primary) hypertension Code(s): I10 - Essential (primary) hypertension Status: Chronic (5) Insulin dependent type 2 diabetes mellitus: Code(s): E11.9 - Type 2 diabetes mellitus without complications; Z79.4 - nursing home (current) use of insulin Status: Chronic (6) Paroxysmal atrial fibrillation: Code(s): I48.0 - Paroxysmal atrial fibrillation Status: Acute (7) Vascular dementia: Code(s): F01.50 - Vascular dementia, unspecified severity, without behavioral disturbance, psychotic disturbance, mood disturbance, and anxiety Status: Acute (8) Chronic anemia: Code(s): D64.9 - Anemia, unspecified Status: Acute (9) Altered mental status: Code(s): R41.82 - Altered mental status, unspecified Status: Acute (10) Acute kidney injury superimposed on CKD: Code(s): N17.9 - Acute kidney failure, unspecified; N18.9 - Chronic kidney disease, unspecified Status: Acute DS: Discharge Diagnosis Discharge Diagnosis (1) Acute hypoxemic respiratory failure: Code(s): J96.01 - Acute respiratory failure with hypoxia Status: Acute (2) Hallucinations, visual: Code(s): R44.1 - Visual hallucinations Status: Acute (3) Heart failure with preserved ejection fraction: Qualifiers: Heart failure chronicity: acute on chronic Qualified Code(s): I50.33 - Acute on chronic diastolic (congestive) heart failure Code(s): I50.30 - Unspecified diastolic (congestive) heart failure Status: Acute (4) Hypertension: Qualifiers: Hypertension type: unspecified Qualified Code(s): I10 - Essential (primary) hypertension Code(s): I10 - Essential (primary) hypertension Status: Chronic (5) Insulin dependent type 2 diabetes mellitus: Code(s): E11.9 - Type 2 diabetes mellitus without complications; Z79.4 - [facility] (current) use of insulin Status: Chronic (6) Paroxysmal atrial fibrillation: Code(s): I48.0 - Paroxysmal atrial fibrillation Status: Acute (7) Vascular dementia: Code(s): F01.50 - Vascular dementia, unspecified severity, without behavioral disturbance, psychotic disturbance, mood disturbance, and anxiety Status: Acute (8) Chronic anemia: Code(s): D64.9 - Anemia, unspecified Status: Acute (9) Altered mental status: Code(s): R41.82 - Altered mental status, unspecified Status: Acute (10) Acute kidney injury superimposed on CKD: Code(s): N17.9 - Acute kidney failure, unspecified; N18.9 - Chronic kidney disease, unspecified Status: Acute DS: Summary Hospital Course Hospital Course: This is a 63-year-old male with history of strokes, vascular dementia, bipolar disorder, coronary artery disease status post 3 vessel coronary artery bypass, heart failure with preserved ejection fraction, paroxysmal atrial fibrillation not on chronic anticoagulation, peripheral arterial disease, hypertension, chronic kidney disease, chronic anemia, and insulin-dependent type 2 diabetes mellitus who presented to the emergency department for evaluation of altered mental status. He was admitted to the hospital about 4 weeks ago after presenting with shortness of breath and abdominal pain. He was treated for congestive heart failure, pneumonia, and cholecystitis status post cholecystostomy tube and was discharged home on Augmentin, Bactrim, and Flagyl. He has been doing pretty well in that regard. Over the last couple of days he has become altered. He is having hallucinations The following medical issues have been addressed during hospitalization. Altered mental status Patient presented hallucination and change of mental status, patient was noticed to have seizure activity Possible due to multiple causes including seizure, polypharmacy, dehydration, metabolic disorder on the base of possible ischemic dementia Patient received IV fluid Neurologist is consulted Treat underlying disease Patient ALERT ORIENTED X3 History of stroke Patient is on aspirin 325 mg daily p.o.,, Plavix 75 mg daily p.o., Lipitor 80 mg daily p.o. Management per neurologist Seizure patient is on seizure medication Keppra 750 mg b.i.d. p.o. Management per neurologist CKD stage 3 Elevated BUN creatinine ratio, close to baseline UTI UA shows pyuria Received ceftriaxone 1 g IV daily x4, switch to cefdinir p.o. at discharge Acute on chronic respiratory failure Chest x-ray reports discoid atelectasis in the right midlung. 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 IV push. Switch furosemide 40 mg b.i.d. IV to b.i.d. p.o. Compensated Essential hypertension Patient is on nifedipine 60 mg daily p.o. ramipril 10 mg daily p.o. Patient wishes to discharge patient. Patient declined rehab placement Time Spent with Patient Time attestation: Total time spent providing and/or coordinating discharge services: Exam Narrative: GENERAL: Pleasant, in no acute distress. Well-nourished. - EYES: EOMI. Anicteric. - HENT: Moist mucous membranes. - LUNGS: Clear to auscultation bilateral ly, no wheezing, rhonchi, or rales. - CARDIOVASCULAR: Regular rate and rhyth m. No murmur. No JVD. - ABDOMEN: Soft, non-tender and non-dist ended. No palpable masses. - EXTREMITIES: No edema. Peripheral puls es 2+. Non-tender. - NEUROLOGIC: No focal neurological defi cits. CN II-XII grossly intact. - PSYCHIATRIC: Awake, Alert and oriented x 3. Appropriate mood and affect. - SKIN: No rashes or lesions. Warm. - LYMPH: No cervical lymphadenopathy. DS: Data Data Completed and Pending Labs on day of discharge: Labs from last 24 hours 10/14/23 10/13/23 10/13/23 04:29 20:40 20:32 WBC 8.0 RBC 3.13 L Hgb 8.7 L Hct 27.7 L MCV 88.5 MCH 27.8 MCHC 31.4 L RDW 14.9 H Plt Count 239 MPV 11.3 H Sodium 137 Potassium 4.0 Chloride 106 Carbon Dioxide 25 Anion Gap 6 BUN 22 H Creatinine 1.60 H Estim Creat Clear Calc 44 Estimated GFR 44 L Glucose 164 H POC Capillary Glucose 185 H Calcium 8.0 L Total Bilirubin 0.2 AST 17 ALT 11 Alkaline Phosphatase 74 Total Protein 6.0 L Albumin 2.8 L Free T3 pg/mL Urine Color Yellow Urine Appearance Cloudy H Urine pH 6.0 Ur Specific [place] 1.008 Urine Protein 2+ H Urine Glucose (UA) Negative Urine Ketones Negative Ur Blood (Man) Negative Urine Nitrate Negative Urine Bilirubin Negative Urine Urobilinogen 0.2 Ur Leukocyte Esterase 3+ H Urine RBC 0-2 Urine WBC >100 H Ur Squamous Epith Cells None seen Urine Bacteria 4+ H Urine Casts 0-2 10/13/23 10/13/23 10/13/23 16:57 12:37 08:12 WBC RBC Hgb Hct MCV MCH MCHC RDW Plt Count MPV Sodium Potassium Chloride Carbon Dioxide Anion Gap BUN Creatinine Estim Creat Clear Calc Estimated GFR Glucose POC Capillary Glucose 172 H 228 H 129 H Calcium Total Bilirubin AST ALT Alkaline Phosphatase Total Protein Albumin Free T3 pg/mL Urine Color Urine Appearance Urine pH Ur Specific [place] Urine Protein Urine Glucose (UA) Urine Ketones Ur Blood (Man) Urine Nitrate Urine Bilirubin Urine Urobilinogen Ur Leukocyte Esterase Urine RBC Urine WBC Ur Squamous Epith Cells Urine Bacteria Urine Casts 10/10/23 19:00 WBC RBC Hgb Hct MCV MCH MCHC RDW Plt Count MPV Sodium Potassium Chloride Carbon Dioxide Anion Gap BUN Creatinine Estim Creat Clear Calc Estimated GFR Glucose POC Capillary Glucose Calcium Total Bilirubin AST ALT Alkaline Phosphatase Total Protein Albumin Free T3 pg/mL 1.8 Urine Color Urine Appearance Urine pH Ur Specific [place] Urine Protein Urine Glucose (UA) Urine Ketones Ur Blood (Man) Urine Nitrate Urine Bilirubin Urine Urobilinogen Ur Leukocyte Esterase Urine RBC Urine WBC Ur Squamous Epith Cells Urine Bacteria Urine Casts Discharge Plan Discharge Attending physician on discharge: Kvng Disla Consulting providers: Magda Deluna; Matt Yusuf; Bismark Anguiano Discharging Clinician: Mahamed Sewell Patient Disposition: Home Health Service Activity: may shower, unlimited and as tolerated Diet: diabetic, low sodium and low fat Discharge Instructions: * Discharge disposition: Home * Take medications as prescribed * Monitor blood pressures * Avoid social areas, you wear a mask when in social settings * Encouraged to continue with yearly vaccinations * If you developed sudden shortness of breath, chest pain, nausea, vomiting, upset stomach or intractable diarrhea * Return to the emergency department if you develop fever greater than 101.5 * Follow-up with the primary care physician within 1-2 weeks * Thank you for choosing [facility] for your healthcare needs General Surgery Discharge Instructions * Call Dr. Deluna's office to schedule an appointment in 1-2 weeks. [phone] Cholecystostomy tube care: * Empty and record output from drain daily * OK to sponge bathe/shower. * May remove bandage and clean around drain every 2-3 days. * Re-apply 4x4 gauze and Tegaderm dressing every 2-3 days. Per Care Coordiantion Patient has been accepted to have [facility] for PT, OT [phone] RN please fax completed discahrge instructions to [phone] Patient Instructions: Antibiotic Form, Heart Failure (ED) Stand Alone Forms: General Discharge Information Follow-up/Referrals: Magda Deluna MD [Physician] - Call for Appointment Mahsofiya,Shane Miranda MD [Primary Care Provider] - Call for Appointment Matt Yusuf MD [Physician] - Call for Appointment Discharge Medications: New levetiracetam 250 mg Tablet 750 mg PO Q12HR Qty: 90 0RF cefdinir 300 mg capsule 300 mg PO Q12H Qty: 10 0RF Continued paroxetine HCl 20 mg tablet 40 mg PO DAILY omeprazole 20 mg capsule,delayed release(DR/EC) 20 mg PO DAILY ramipril 10 mg capsule 10 mg PO DAILY Hold Instructions: Hold this medicine and speak with your family doctor if you are to resume. glipizide 5 mg tablet 10 mg PO BID Patient Comments: out 2-3 days ago unable to refill until appointment on october 01 clopidogrel 75 mg tablet 75 mg PO DAILY Patient Comments: pt ran out of meds about 2-3 days ago informed physician reported needed to wait until appointment on october 01 to get med refilled aspirin 325 mg Capsule 325 mg PO DAILY guaifenesin [Mucus Relief ER] 600 mg Tablet Extended Release 12hr 1,200 mg PO Q12HR Qty: 14 0RF atorvastatin 80 mg Tablet 80 mg PO HS 30 Days Qty: 30 0RF melatonin 3 mg tablet 10 mg PO HS insulin lispro 100 unit/mL Insulin Pen 1 sliding scale dose SUBCUT USEASDIRECTD Rx Instructions: pt does have home sliding scale doesn't need often sugars are controlled carvedilol [Coreg] 25 mg Tablet 25 mg PO BIDWM Qty: 60 0RF furosemide 20 mg tablet 20 mg PO DAILY Qty: 30 0RF nifedipine [Procardia XL] 30 mg Tablet Extended Release 24hr 60 mg PO QAM Qty: 30 0RF albuterol sulfate 90 mcg/actuation HFA aerosol inhaler 2 puff inhalation PRN PRN (Reason: shortness of breath or wheezing) omega [id number] oil [Fish Oil] 60-90-500 mg Capsule 1 cap PO DAILY gabapentin 100 mg Capsule 100 mg PO TID Qty: 90 0RF Date of admission: 10/11/23 10:45 Primary Care Provider: Sharmila,Shane Miranda Admitting Provider: Brennan Barrett Attending physician on admission: Amarilys Johnston Condition: Stable
[2023-10-14 08:08] LABS: Glucose Point of Care 139 mg/dl (65-105)
[2023-10-14] MEDS: SODIUM CHLORIDE 0.9% IV 1,000 ML 75 ML IV CONT (08:33)
--- NOTE | 2023-10-14 08:35 | PCOTNOTE ---
Attempted to see Patient at this time. Patient declined, stated, its to early, I'm resting and my wifes not here yet.
[2023-10-14] MEDS: FUROSEMIDE 40 MG TABLET PO ×2 (08:45→17:36)
[2023-10-14] MEDS: levETIRAcetam 500 MG TABLET PO (08:45)
[2023-10-14] MEDS: CLOPIDOGREL BISULFATE 75 MG TABLET PO (08:45)
[2023-10-14] MEDS: ramipriL 5 MG CAPSULE 10 MG PO (08:45)
[2023-10-14] MEDS: NIFEdipine 30 MG TAB.ER.24 60 MG PO (08:45)
[2023-10-14] MEDS: ASPIRIN 325 MG TABLET PO (08:45)
[2023-10-14] MEDS: OMEGA 3 POLYUNSAT FATTY ACIDS 1 GM CAP PO (08:45)
[2023-10-14] MEDS: PANTOPRAZOLE 40 MG TABLET PO (08:46)
[2023-10-14] MEDS: carvediloL 25 MG TABLET PO ×2 (08:46→17:35)
[2023-10-14] MEDS: ENOXAPARIN 40 MG/0.4 ML SYRINGE SUB-Q (08:46)
[2023-10-14 09:54] LABS: Methylmalonic Acid 272 nmol/L (69-390)
--- NOTE | 2023-10-14 11:44 | WPDNEUROPN ---
Progress Note: A&P Assessment and Plan (1) Seizure disorder: Code(s): G40.909 - Epilepsy, unspecified, not intractable, without status epilepticus Status: Acute (2) Acute respiratory failure: Code(s): J96.00 - Acute respiratory failure, unspecified whether with hypoxia or hypercapnia Status: Acute (3) Hallucinations, visual: Code(s): R44.1 - Visual hallucinations Status: Acute (4) Vascular dementia: Code(s): F01.50 - Vascular dementia, unspecified severity, without behavioral disturbance, psychotic disturbance, mood disturbance, and anxiety Status: Acute (5) Insulin dependent type 2 diabetes mellitus: Code(s): E11.9 - Type 2 diabetes mellitus without complications; Z79.4 - [facility] (current) use of insulin Status: Chronic (6) Hypertension: Qualifiers: Hypertension type: unspecified Qualified Code(s): I10 - Essential (primary) hypertension Code(s): I10 - Essential (primary) hypertension Status: Chronic (7) Paroxysmal atrial fibrillation: Code(s): I48.0 - Paroxysmal atrial fibrillation Status: Acute (8) Left-sided weakness: Code(s): R53.1 - Weakness Status: Acute (9) History of multiple cerebrovascular accidents (CVAs): Code(s): Z86.73 - Personal history of transient ischemic attack (TIA), and cerebral infarction without residual deficits Status: Acute Plan 1. I would suggest increase the dose of Keppra to 750 mg twice a day given his size age and stage if you recover from the point of view of seizures. 2. Also I do not see the blood results for serum B12 and folate in lipid profile and a vitamin-D and thyroid function test and methylmalonic acid level and hence I have ordered these again. 3. We can reduce the dose of aspirin to 81 mg a day since he is on Plavix and also on high-dose atorvastatin. Subjective Date/time seen: 10/14/23 11:44 Interval history: Patient is 63 years old with history of multiple medical problems including diabetes mellitus, paroxysmal atrial fibrillation, vascular dementia, acute kidney disease, respiratory failure, bipolar disorder presented with a visual hallucinations. He is doing about the same as before and no new symptoms are reported. Patient has previous stroke with residual weakness on the left side of the body. MRI of the brain has shown old Cerebrovascular disease including cerebral hemispheres and jamie. Patient lives his . Review of Systems Review of Systems: Patient denies any additional symptoms however does not appear to be a reliable historian. Exam Narrative: Fully conscious alert. Knows the month and the year. No aphasia or dysarthria left upper limb power grade 3-4/5 and the deep tendon face slightly brisk in the left upper the right upper limb. No involuntary movements are seen. Objective Data Vital Signs Vital Signs: Vital Signs - 24 hr 10/13/23 14:00 10/13/23 17:29 10/13/23 20:00 Temperature 36.6 C Pulse Rate 64 64 Respiratory Rate 19 Blood Pressure 136/58 L Pulse Oximetry 96 95 Oxygen Delivery Nasal Cannula Oxygen Flow Rate 2 Fraction of Inspired Oxygen 10/13/23 20:22 10/14/23 04:35 10/14/23 08:00 Temperature 36.5 C 36.8 C Pulse Rate 60 64 Respiratory Rate 20 18 Blood Pressure 150/66 H 142/61 H Pulse Oximetry 99 96 95 Oxygen Delivery Nasal Cannula Oxygen Flow Rate 2 Fraction of Inspired Oxygen 10/14/23 08:43 10/14/23 08:46 10/14/23 08:45 Temperature Pulse Rate 72 71 Respiratory Rate Blood Pressure 162/60 H Pulse Oximetry 98 98 Oxygen Delivery Nasal Cannula Oxygen Flow Rate 2 Fraction of Inspired Oxygen Intake/Output Intake/Output: Intake & Output 10/11/23 10/12/23 10/13/23 10/14/23 23:59 23:59 23:59 23:59 Intake Total 420 3159.7 2828.8 240 Output Total 350 1100 700 Balance 420 2809.7 1728.8 -460 Meds/Results Medications: Active Medications Generic Name Dose Route Start Last Admin Trade Name Freq PRN Reason Stop Dose Admin Acetaminophen 650 mg 10/07/23 14:36 10/08/23 19:42 Acetaminophen 325 Mg Tablet PO 650 mg Q4H PRN Administration Mild Pain (1-3) or Fever Albuterol 2 puff 10/07/23 17:56 Albuterol Sulfate (*Sp) Aerosol 1 Puff INHALATION PRN PRN shortness of breath or wheezing Aspirin 81 mg 10/15/23 09:00 Aspirin 325 Mg Tablet PO 11/07/23 08:59 DAILY GEOFFREY Atorvastatin Calcium 80 mg 10/07/23 21:00 10/13/23 21:17 Atorvastatin 40 Mg Tablet PO 80 mg HS GEOFFREY Administration Carvedilol 25 mg 10/08/23 08:00 10/14/23 08:46 Carvedilol 25 Mg Tablet PO 25 mg BIDWM GEOFFREY Administration Clopidogrel Bisulfate 75 mg 10/08/23 09:00 10/14/23 08:45 Clopidogrel Bisulfate 75 Mg Tablet PO 75 mg DAILY GEOFFREY Administration Dextrose 12.5 gm 10/07/23 17:45 Dextrose 50% 25 Gm/50 Ml Syringe IV PUSH PRN PRN Hypoglycemia Protocol Enoxaparin Sodium 40 mg 10/08/23 09:00 10/14/23 08:46 Enoxaparin 40 Mg/0.4 Ml Syringe SUB-Q 40 mg DAILY GEOFFREY Administration Fish Oil 1 gm 10/08/23 09:00 10/14/23 08:45 [place] 3 Polyunsat Fatty Acids 1 Gm Cap PO 11/07/23 08:59 1 gm DAILY GEOFFREY Administration Furosemide 40 mg 10/11/23 09:57 10/14/23 08:45 Furosemide 40 Mg Tablet PO 40 mg BID GEOFFREY Administration Gabapentin 100 mg 10/07/23 22:00 10/14/23 06:50 Gabapentin 100 Mg Capsule PO 100 mg Q8HR GEOFFREY Administration Glucagon 1 mg 10/07/23 17:45 Glucagon For Inj 1 Mg Vial IM PRN PRN Hypoglycemia Protocol Glucagon 1 mg 10/08/23 07:27 Glucagon For Inj 1 Mg Vial IM PRN PRN Hypoglycemia Protocol Glucose 15 gm 10/07/23 17:45 Glucose Oral Gel 15 Gm Of Glucse In 37.5 Gm Tube PO PRN PRN Hypoglycemia Protocol Hydralazine HCl 20 mg 10/08/23 07:24 Hydralazine Hcl 20 Mg/Ml Vial IV PUSH Q6HR PRN hypertension Dextrose 1,000 mls @ 100 mls/hr 10/07/23 17:45 Dextrose 5% 1,000 Ml IVPB PRN PRN Hypoglycemia Protocol Ceftriaxone Sodium 1 gm in 50 mls @ 100 mls/hr 10/10/23 18:00 10/13/23 18:00 Rocephin 1 Gm/Ns 50 Ml IVPB 10/14/23 18:29 Infused Q24H GEOFFREY Infusion Sodium Chloride 1,000 mls @ 75 mls/hr 10/11/23 12:55 10/14/23 08:33 Normal Saline Iv IV CONT 75 mls/hr .[id number] GEOFFREY Administration Insulin Aspart 2 - 5 units 10/08/23 08:00 10/14/23 08:13 Insulin Aspart (*Bkc) 100 Units/Ml SUB-Q Not Given TIDWM [facility] Protocol Levetiracetam 750 mg 10/14/23 21:00 Levetiracetam 250 Mg Tablet PO Q12HR GEOFFREY Melatonin 10 mg 10/07/23 21:00 10/13/23 21:16 Melatonin 5 Mg Tablet PO 10 mg HS GEOFFREY Administration Nifedipine 60 mg 10/08/23 09:00 10/14/23 08:45 Nifedipine 30 Mg Tab.Er.24 PO 60 mg QAM GEOFFREY Administration Ondansetron HCl 4 mg 10/07/23 14:36 10/13/23 12:02 Ondansetron Inj 4 Mg/2 Ml Vial IV PUSH 4 mg Q4H PRN Administration Nausea Pantoprazole Sodium 40 mg 10/08/23 09:00 10/14/23 08:46 Pantoprazole 40 Mg Tablet PO 11/07/23 08:59 40 mg DAILY GEOFFREY Administration Ramipril 10 mg 10/08/23 09:00 10/14/23 08:45 Ramipril 5 Mg Capsule PO 10 mg DAILY GEOFFREY Administration Radiology Results: ITS Impressions Head CT 10/07/23 14:07 IMPRESSION: No acute intracranial findings. Abdomen Ultrasound 10/07/23 16:04 IMPRESSION: 1. Nonvisualization of the gallbladder and pancreas. Otherwise, Unremarkable limited ultrasound of the abdomen. Brain MRI 10/08/23 08:09 IMPRESSION: 1. No acute intracranial process. 2. No abnormal enhancement. 3. Old lacunar infarcts in the right cam radiata and centrum semiovale. Old lacunar infarcts in the jamie. Chest X-Ray 10/10/23 16:44 IMPRESSION: Presumed discoid atelectasis in the right midlung. Streaky left basilar atelectasis/scar. Small left pleural effusion. Infection is not excluded. Carotid Doppler Study 10/11/23 07:03 IMPRESSION: 1. 50-69% stenosis in the right internal carotid artery. 2. <50% stenosis in the left internal carotid artery. Labs Labs: Laboratory Results - last 24 hr 10/10/23 10/13/23 10/13/23 19:00 12:37 16:57 WBC RBC Hgb Hct MCV MCH MCHC RDW Plt Count MPV Sodium Potassium Chloride Carbon Dioxide Anion Gap BUN Creatinine Estim Creat Clear Calc Estimated GFR Glucose POC Capillary Glucose 228 H 172 H Calcium Total Bilirubin AST ALT Alkaline Phosphatase Total Protein Albumin Methylmalonic Acid 272 Free T3 pg/mL 1.8 Urine Color Urine Appearance Urine pH Ur Specific [place] Urine Protein Urine Glucose (UA) Urine Ketones Ur Blood (Man) Urine Nitrate Urine Bilirubin Urine Urobilinogen Ur Leukocyte Esterase Urine RBC Urine WBC Ur Squamous Epith Cells Urine Bacteria Urine Casts 10/13/23 10/13/23 10/14/23 20:32 20:40 04:29 WBC 8.0 RBC 3.13 L Hgb 8.7 L Hct 27.7 L MCV 88.5 MCH 27.8 MCHC 31.4 L RDW 14.9 H Plt Count 239 MPV 11.3 H Sodium 137 Potassium 4.0 Chloride 106 Carbon Dioxide 25 Anion Gap 6 BUN 22 H Creatinine 1.60 H Estim Creat Clear Calc 44 Estimated GFR 44 L Glucose 164 H POC Capillary Glucose 185 H Calcium 8.0 L Total Bilirubin 0.2 AST 17 ALT 11 Alkaline Phosphatase 74 Total Protein 6.0 L Albumin 2.8 L Methylmalonic Acid Free T3 pg/mL Urine Color Yellow Urine Appearance Cloudy H Urine pH 6.0 Ur Specific [place] 1.008 Urine Protein 2+ H Urine Glucose (UA) Negative Urine Ketones Negative Ur Blood (Man) Negative Urine Nitrate Negative Urine Bilirubin Negative Urine Urobilinogen 0.2 Ur Leukocyte Esterase 3+ H Urine RBC 0-2 Urine WBC >100 H Ur Squamous Epith Cells None seen Urine Bacteria 4+ H Urine Casts 0-2 10/14/23 07:58 WBC RBC Hgb Hct MCV MCH MCHC RDW Plt Count MPV Sodium Potassium Chloride Carbon Dioxide Anion Gap BUN Creatinine Estim Creat Clear Calc Estimated GFR Glucose POC Capillary Glucose 139 H Calcium Total Bilirubin AST ALT Alkaline Phosphatase Total Protein Albumin Methylmalonic Acid Free T3 pg/mL Urine Color Urine Appearance Urine pH Ur Specific [place] Urine Protein Urine Glucose (UA) Urine Ketones Ur Blood (Man) Urine Nitrate Urine Bilirubin Urine Urobilinogen Ur Leukocyte Esterase Urine RBC Urine WBC Ur Squamous Epith Cells Urine Bacteria Urine Casts
[2023-10-14 11:55] LABS: Glucose Point of Care 196 mg/dl (65-105)
--- NOTE | 2023-10-14 11:55 | PCOTNOTE ---
Attempted to see pt for OT treatment. CNAs were present in room to give pt a boost in recliner due to sliding down in chair. When therapist introduced self, pt started yelling at therapist to get out and that he is not doing any of this today. Once boosted in recliner, therapist attempted again, with pt continuing to refuse, however, was much calmer. Will continue per poc duration/frequency tomorrow.
[2023-10-14 12:41] LABS: Cholesterol 129 mg/dL (0-200); HDL Direct 27 mg/dL; Triglycerides 143 mg/dL (<150)
[2023-10-14 12:55] LABS: LDL Cholesterol Direct 65 mg/dL
[2023-10-14 13:00] LABS: T4 Thyroxine 8.95 ug/dL (5.53-11.0)
[2023-10-14 13:21] LABS: Vitamin D 25 Hydroxy < 12.8 ng/mL
[2023-10-14 13:49] LABS: Folic Acid 4.8 ng/mL (2.76->20)
--- NOTE | 2023-10-14 15:46 | HOMEO2EVAL ---
Evaluation was performed at [facility] Home Oxygen Evaluation RC: Home Oxygen (O2) Evaluation Start: 10/10/23 14:24 Freq: ONCE Status: Active Protocol: RPE Activity Type Activity Date Activity User E-sign Co-sign Detail Recorded Client Recorded Date Recorded By Document 10/14/23 15:00 PKH [email or web address] 10/14/23 15:46 PKH Document 10/14/23 15:05 PKH [email or web address] 10/14/23 15:46 PKH Document 10/14/23 15:15 PK [email or web address] 10/14/23 15:46 PK Document 10/14/23 15:30 PK [email or web address] 10/14/23 15:46 PK Document 10/14/23 15:40 PK [email or web address] 10/14/23 15:46 PKH 10/14/23 10/14/23 10/14/23 15:00 15:05 15:15 Home O2 Evaluation [Oxygen] -Test Phase Resting Resting Exercise -Oxygen Delivery Room Air Nasal Cannula Nasal Cannula -Oxygen Flow Rate (L/min) 1 1 [Pulse Oximetry] -Pulse Oximetry (90-100 %) 86 L 93 86 L [Pulse Rate] -Pulse Rate (60-100 beats/min) 71 68 72 [Charges] -Evaluation Charges O2 Evaluation by Pulmonary 10/14/23 10/14/23 15:30 15:40 Home O2 Evaluation [Oxygen] -Test Phase Exercise Resting -Oxygen Delivery Nasal Cannula Nasal Cannula -Oxygen Flow Rate (L/min) 2 1 [Pulse Oximetry] -Pulse Oximetry (90-100 %) 92 93 [Pulse Rate] -Pulse Rate (60-100 beats/min) 72 72 [Charges] -Evaluation Charges
--- NOTE | 2023-10-14 15:52 | PCRCNOTE ---
HOME O2 EVAL COMPLETE. PATIENT REQUIRES 1 LPM WITH REST AND 2 LPM WITH ACTIVITY.. RN NOTIFIED. HOME O2 SE UP WITH [facility] [phone].
[2023-10-14 16:59] LABS: Glucose Point of Care 188 mg/dl (65-105)
[2023-10-14 20:55] LABS: Glucose Point of Care 179 mg/dl (65-105)
[2023-10-18 15:28] LABS: Methylmalonic Acid 243 nmol/L (69-390)
[2023-10-21 15:01] LABS: T3 Free 2.0 pg/mL
== END 2023-10-14 20:17 | disposition home health service (06) | DRG 101 ==
LOC: ANHED 10:46 → ANH2MED 15:08
PROVIDERS: Internal Medicine; Nurse Practitioner; Nurse Practitioner Family; Psychiatry & Neurology Neurology; Admitting Provider Internal Medicine; Emergency Provider Emergency Medicine; PCP Internal Medicine; Visit Provider Hospitalist
DX: G40.909 Epilepsy, unspecified, not intractable, without status epilepticus (principal); N17.9 Acute kidney failure, unspecified; I13.0 Hypertensive heart and chronic kidney disease with heart failure and stage 1 through stage 4 chronic kidney disease, or unspecified chronic kidney disease; N39.0 Urinary tract infection, site not specified; J98.11 Atelectasis; I69.354 Hemiplegia and hemiparesis following cerebral infarction affecting left non-dominant side; I50.32 Chronic diastolic (congestive) heart failure; R44.1 Visual hallucinations; R25.3 Fasciculation; Z91.148 Patient's other noncompliance with medication regimen for other reason; E88.9 Metabolic disorder, unspecified; E86.0 Dehydration; E11.22 Type 2 diabetes mellitus with diabetic chronic kidney disease; N18.30 Chronic kidney disease, stage 3 unspecified; I48.0 Paroxysmal atrial fibrillation; D64.9 Anemia, unspecified; F31.9 Bipolar disorder, unspecified; I25.10 Atherosclerotic heart disease of native coronary artery without angina pectoris; F01.50 Vascular dementia, unspecified severity, without behavioral disturbance, psychotic disturbance, mood disturbance, and anxiety; K81.9 Cholecystitis, unspecified; I73.9 Peripheral vascular disease, unspecified; K21.9 Gastro-esophageal reflux disease without esophagitis; G47.33 Obstructive sleep apnea (adult) (pediatric); E11.42 Type 2 diabetes mellitus with diabetic polyneuropathy; F17.210 Nicotine dependence, cigarettes, uncomplicated; Z20.822 Contact with and (suspected) exposure to COVID-19; Z79.4 Long term (current) use of insulin; Z95.1 Presence of aortocoronary bypass graft; I69.322 Dysarthria following cerebral infarction; I69.391 Dysphagia following cerebral infarction; I25.2 Old myocardial infarction; Z95.5 Presence of coronary angioplasty implant and graft; Z95.820 Peripheral vascular angioplasty status with implants and grafts; Z99.3 Dependence on wheelchair
CPT/HCPCS: 36415; 36600; 70450; 70553; 71045; 76705; 80053; 80061; 80307; 81001; 82140; 82306; 82375; 82607; 82746; 82805; 82948; 83050; 83690; 83735; 83921; 84436; 84443; 84480; 85025; 85027; 87637; 93005; 93880; 94618; 94762; 97110; 97161; 97165; 97530; 99285; A9270; A9577; G0378; J0456; J0696; J1650; J1815; J1940; J2405; J7030

== ENCOUNTER 2025-03-04 10:42 | Inpatient (IN) | payer MEDICARE, SELFPAY ==
[2025-03-04] VITALS (11 sets, daily range): BP systolic 159–185; BP diastolic 58–82; PULSE 57–86; RESP 16–18; TEMP 36.2–37; O2SAT 95–100; BMI 27.8
--- NOTE | ~2025-03-04 | NM_ITS ---
EXAM/PROCEDURE: NM lung vent and perfusion HISTORY: new aflutter, VICENTE with low O2, +ddimer COMPARISON: Chest x-ray same date and VQ scan from July 30, 2023 TECHNIQUE: Standard technique for VQ scan performed. Dose: 17.2 mCi xenon inhalational radionuclide used for the ventilatory portion. 5.4 mCi technetium 99m microaggregated albumin used for the perfusion portion of exam. FINDINGS: Examination is limited by cardiomegaly, however there is no gross interval change from the previous VQ scan and no segmental or larger sized area of ventilation/perfusion mismatch. IMPRESSION: Low probability for pulmonary embolus. Reviewed, dictated and finalized at location A. WORKER
--- NOTE | ~2025-03-04 | CT_ITS ---
EXAMINATION: CT brain wo con DATE: 03/04/2025 11:31 INDICATION: Altered mental status TECHNIQUE: Computed tomography (CT) of the head was performed without intravenous contrast. The dose-length product was 908.00 mGy-cm. COMPARISON: October 07, 2023 FINDINGS: No gross intracranial mass effect or hemorrhage. Old lacunar infarctions in the right periventricular and basal ganglia region unchanged. No large acute ischemic event. Number structures appear stable. IMPRESSION: 1. No gross intracranial mass effect or hemorrhage. 2. Old right-sided lacunar infarctions and chronic white vessel ischemic appearing changes. Reviewed, dictated and finalized at location A. EM SUPPORT ADMINISTRATOR IMPRESSION: 1. No gross intracranial mass effect or hemorrhage. 2. Old right-sided lacunar infarctions and chronic white vessel ischemic appear ing changes.
--- NOTE | ~2025-03-04 | CT_ITS ---
EXAMINATION: CT diagnostic chest wo con DATE: 03/07/2025 22:12 INDICATION: Hypoxemia TECHNIQUE: Computed tomography (CT) of the chest was performed without intravenous contrast. The dose-length product was 511.54 mGy-cm. COMPARISON: CT dated 09/21/2023 FINDINGS: Small pleural effusions. Moderate cardiomegaly. There is atherosclerosis of the aorta and coronary arteries. Status post median sternotomy for CABG. There is gynecomastia. There is calcification of the aortic valve and mitral annulus. There is dependent atelectasis. No thoracic lymphadenopathy. There is patchy groundglass opacification with focal areas of consolidation patchy throughout both lungs. Moderate thoracic spondylosis. There is diffuse idiopathic skeletal hyperostosis (DISH) of the thoracic spine. IMPRESSION: 1. Diffuse patchy groundglass opacities with small pleural effusions and dependent atelectasis. In the setting of hypoxia this may represent pulmonary edema. Differential diagnosis includes diffuse inflammatory or infectious process depending on clinical context. 2: Moderate cardiomegaly with extensive atherosclerotic cardiovascular disease status post CABG. Reviewed, dictated and finalized at location O. CAL PRACTICE MANAGER IMPRESSION: 1. Diffuse patchy groundglass opacities with small pleural effusions and depend ent atelectasis. In the setting of hypoxia this may represent pulmonary edema. Differential diagnosis includes diffuse inflammatory or infectious process depe nding on clinical context. 2: Moderate cardiomegaly with extensive atherosclerotic cardiovascular disease status post CABG.
--- NOTE | ~2025-03-04 | XR_ITS ---
EXAMINATION: XR chest 1V DATE: 03/04/2025 11:35 INDICATION: Low blood pressure TECHNIQUE: A single frontal view of the chest was obtained. COMPARISON: October 10, 2023 FINDINGS: Moderately enlarged heart shadow with somewhat prominent hilar shadows and vascular markings but no [place] pulmonary edema or large effusion. No pneumothorax or subphrenic free air seen. Minimal atelectatic changes or scarring left mid lung. IMPRESSION: 1. Enlarged heart shadow with vascular congestion; no [place] pulmonary edema or large effusion. Reviewed, dictated and finalized at location A. R VEHICLE LICENSE CLERK
--- NOTE | 2025-03-04 10:54 | ECG_ITS ---
Test Date: 2025-03-04 11:00:41 Measurements Intervals [place] Rate: 62 P: 81 AL: 197 QRS: -11 QRSD: 166 T: 12 QT: 472 QTc: 482 Interpretive Statements ATRIAL FLUTTER WITH NORMAL VENTRICULAR RATE RIGHT BUNDLE BRANCH BLOCK BASELINE ARTIFACT- I, II, III, AVR, AVL, AVF ABNORMAL ECG Compared to ECG 10/09/2023 09:43:55 SINUS RHYTHM NO LONGER PRESENT Electronically Signed On 03-04-2025 13:59:52 [employer] by Silas Souza D.O.
--- NOTE | 2025-03-04 11:07 | PCRCNOTE ---
ABG DELAYED DUE TO NURSES IN THE ROOM
[2025-03-04 11:13] LABS: Hematocrit 33.3 % (42.0-52.0); Hemoglobin 10.4 g/dL (14.0-18.0); Immature Granulocyte Percent A 0.7 % (0-0.5); Lymphocytes Absolute Auto 1.51 K/mm3 (0.9-3.2); Mean Corpuscular HGB Conc 31.2 g/dl (32-36); Mean Corpuscular Hemoglobin 27.6 pg (26-34); Mean Corpuscular Volume 88.3 fl (80-100); Nucleated Red Blood Cells Absolute Auto 0.000 K/mm3 (0.0-0.012); Nucleated Red Blood Cells Perc 0.0 % (0.0-0.2); Platelet Count Result 236 k/mm3 (150-375); Red Blood Count 3.77 M/mm3 (4.6-6.20); White Blood Count 13.7 K/mm3 (4.5-10.0)
[2025-03-04 11:24] LABS: Ammonia < 9 umol/L (9-30)
[2025-03-04 11:28] LABS: Alanine Aminotransferase 16 U/L (6-50); Albumin Level 3.2 g/dL (3.5-5.1); Alkaline Phosphatase 119 U/L (38-126); Anion Gap 4 mmol/L (4-12); Aspartate Amino Transferase 23 U/L (17-59); Bilirubin,Total 0.8 mg/dL (0.2-1.3); Blood Urea Nitrogen 40 mg/dL (9-20); Calcium 8.3 mg/dL (8.4-10.2); Carbon Dioxide 26 mmol/L (22-30); Chloride 102 mmol/L (98-107); Estimated CRCL calculation 26 ml/min; Estimated Glomerular Filt Rate 27; Glucose 241 mg/dL (65-110); Potassium 4.1 mmol/L (3.4-5.0); Sodium 132 mmol/L (137-145); Total Protein 7.3 g/dL (6.3-8.2)
[2025-03-04 11:38] LABS: Troponin I 0.025 ng/mL (0.000-0.034)
[2025-03-04] MEDS: IPRATROPIUM 0.5 MG/ALBUTEROL SULFATE 2.5 MG (BASE) AMPUL.NEB 3 ML INHALATION (11:41)
--- OUTSIDE RECORDS SUMMARY | 2025-03-04 11:44 | XMS_ITS | Encounter Summary ---
Author Organization [facility] Home Care Servic es Address [address] [place] [address] Phone Care Team Providers Care Stakeholder Manager Name Role Phone Avery Ferrer MD Primary Care Provider Shane Doll MD Primary Care Provider [phone] RN [facility] Primary Care Pr ovider Unavailable Shane Doll MD Primary Care Provider [phone] Robert Buck MD Unavailable [phone] Robert Dorado MD Unavailable [phone] Hugo Houston MD Unavailable Luis Esteban MD Unavailable [phone] Encounter Details Date Type Department Care Team (Late st Contact Info) Description 12/22/2017 Home Care Visit [facility] Home Health - [address] [address] [address] [place] [address] Mary Gross RN CASE COMMUNICATION Social History Tobacco Use Types Packs/Day Years Used Date Smoking Tobacco: Never Sex and Gender Information Value Date Recorded Sex Assigned at Not on file 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 Gender Identity Not on file Sexual Orientation Not on file documented as of this encounter Plan of Treatment Not on file documented as of this encounter Visit Diagnoses Not on filedocumented in this encounter Additional Health Concerns Infection Onset Date Last Indicated Resolved Time MRSA 10/21/2019 10/21/2019 11/02/2020 5:00 AM CDT documented as of this encounter Care Teams Stakeholder Manager Relationship Specialty [place] [address] [place] [address] PCP - General 12/02/17 01/18/18 Shane Doll MD [address] [place] [address] PCP - General Internal Medicine 01/19/18 02/02/18 Clinic, Primary Care Medicine, PCP - General Family Medicine 02/03/18 02/03/18 Shane Doll MD [address] [place] [address] PCP - General 02/04/[address] forest economist 02/03/18 Robert Buck MD Studio Designer Cardiology 05/14/18 Robert Dorado MD Consulting Physician Neurology 05/14/18 uHgo Houston MD [address] [place] [address] Consulting Physician Vascular Surgery 05/14/18 Luis Esteban MD [address] [place] [address] Endocrinology Diabetes & Metabolism 10/26/19 documented as of this encounter
--- OUTSIDE RECORDS SUMMARY | 2025-03-04 11:44 | XMS_ITS | Patient Health Record ---
Author Organization [facility] Address [address] [facility] [address] [place] [address] Support Name Relationship Address Phone JulietaRojelioia Emergency Contact Unknown Robert Rendon Guarantor Unknown [phone] Reason For Referral No Information Medications Medication SIG (Take, Route, Frequency, Duration) Notes Start Date End Date Status ALDACTAZIDE 25-25 TABLET oral *Reorder from [place] for eRx and Interaction Alerts* Active Indapamide 2.5 mg Oral Ac tive Atorvastatin Calcium 40 MG take 1 tablet (40 mg) by oral route once daily Oral 1 Active Januvia 100 MG take 1 tablet (100 mg) by oral route once daily Oral 1 Active glipiZIDE 5 MG Oral Activ e amLODIPine Besylate 10 MG take 1 tablet (10 mg) by oral route once daily Oral 1 Active Melatonin 10 MG Oral Acti ve Omeprazole 20 MG take 1 capsule (20 mg) by oral route once daily before a meal Oral 1 Active Divalproex Sodium ER 500 MG take 10 mg/kg by oral route once daily Oral 1 Active PARoxetine HCl 20 MG Oral Active Gabapentin 300 MG Oral Ac tive Carvedilol 25 MG Oral Act rhea Clopidogrel Bisulfate 75 MG take 1 tablet (75 mg) by oral route once daily Oral 1 Active Lantus 100 UNIT/ML Subcutaneous Active Plan Of Treatment No Information Insurance Providers Payer Name Payer Address Payer Phone Subscriber Number Group Number Insured Name Patient Relationship to Insured Coverage Start Date Coverage End Date DO NOT USE - use ins id # [id number] Robert Rendon Self - patient is the insured Medical (General) History Surgical History Surgery Date(Month/Year) Heart Stent, Date of Procedure: 04-11-13 stent: 3 stents placed in steve th legs below the knee. , Date of Procedure: ; 2019-10-30 triple bypass, Date of Procedure: 2001; 2019-10-30
--- OUTSIDE RECORDS SUMMARY | 2025-03-04 11:44 | XMS_ITS | Clinical Summary ---
Author Organization [facility] Address [address] [place] [address] Phone Care Team Providers Care Applicator Sprayer Name Role Phone Sebastián Doll MD Primary Care Provider [phone] Medications amLODIPine (NORVASC) 10 MG tablet 0 Active atorvastatin (LIPITOR) 40 MG tablet 0 Active carvedilol (COREG) 12.5 MG tablet Take 12.5 mg by mouth 2 times daily 5 Active cephalexin (KEFLEX) 500 MG capsule 0 Active clopidogrel (PLAVIX) 75 MG tablet 0 Active divalproex (DEPAKOTE) 500 MG EC tablet 0 Active gabapentin (NEURONTIN) 100 MG capsule 0 Active glipiZIDE (GLUCOTROL) 5 MG tablet 0 Active indapamide (LOZOL) 2.5 MG tablet 0 Active Tresiba FlexTouch 100 UNIT/ML injection INJECT 50 UNITS SUBCUTANEOUSLY ONCE DAILY AT BEDTIME 0 Active HumaLOG KWIKPEN 200 UNIT/ML solution pen-injector injection 0 Active doxazosin (CARDURA) 2 MG tablet TAKE 1 TABLET BY MOUTH AT NIGHT 90 tablet 3 1 Active Active Problems Problem Noted Date Diagnosed Date Chronic kidney disease, stage 3a 03/08/2020 Essential hypertension 03/08/2020 Type 2 diabetes mellitus 03/08/2020 Social History Tobacco Use Types Packs/Day Years Used Date Smoking Tobacco: Never Assessed Sex and Gender Information Value Date Recorded Sex Assigned at Not on file Legal Sex Male 7:24 AM MST Gender Identity Not on file Sexual Orientation Not on file Plan of Treatment Health Maintenance Due Date Last Done Comments Influenza Vaccine (#1) 2024 12/03/2017, 2017, 01/30/2012 Insurance [facility] Care Teams Applicator Sprayer Relationship Specialty Start Date End Date Sebastián Doll MD [address] [facility] [address] [place] [address] PCP - General Internal Medicine 03/07/20
--- OUTSIDE RECORDS SUMMARY | 2025-03-04 11:44 | XMS_ITS | Clinical Summary ---
Author Organization [facility] Address [address] [place] [address] Care Team Providers Care Magazine Journalist Name Role Phone Shane Doll MD Primary Care Provider Shane Doll MD Unavailable [phone] Source Comments [facility],non-owned Affiliates and Associated Physician Practices is amultiple site organization consisting of ambulatory clinics and hospital sitesin [place], [place], [place] and [place]. This disclosure is being madepursuant to the Care Everywhere program and may not contain all information available regarding this patient. Last updated 17.[facility] Allergies No known active allergies Medications * Be aware that medications may not be up to date on this document. Alwaysverify current medications with the patient. amLODIPine (NORVASC) 10 MG tablet Take 10 mg by mouth once daily Active PARoxetine (PAXIL) 20 MG tablet Take 20 mg by mouth once daily Active apixaban (Eliquis) 5 MG tabletIndication s:Cerebrovascula r accident secondary to Atrial Fibrillation Take 1 (one) tablet by mouth 2 times daily Reasons: Cerebrovascular accident secondary to Atrial Fibrillation 0 12/05/19 23 Active levETIRAcetam (Keppra) 750 MG tabletIndication s:Seizure Take 1 (one) tablet by mouth 2 times daily Reasons: Seizure 12/05/19 23 Active insulin aspart (NovoLOG) pen Inject 0 (zero) Units to 12 (twelve) Units subcutaneously every 4 hours 12/05/19 Active insulin glargine (Lantus/Semglee) 100 units/mL pen Inject 5 (five) Units subcutaneously at bedtime 12/05/19 Active atorvastatin (Lipitor) 80 MG tabletIndication s:Cerebrovascula r Accident Take 1 (one) tablet by mouth at bedtime Reasons: Cerebrovascular Accident or Stroke 12/05/19 Active lisinopril (Prinivil; Zestril) 20 MG tabletIndication s:Hypertension Take 1 (one) tablet by mouth once daily Reasons: High Blood Pressure Disorder 12/06/19 Active carvedilol (Coreg) 25 MG tabletIndication s:Atrial Fibrillation,Hyp ertension Take 1 (one) tablet by mouth 2 times daily Reasons: Atrial Fibrillation, High Blood Pressure Disorder 12/05/19 Active pantoprazole EC (Protonix) 40 MG tabletIndication s:Dyspepsia,Marina roesophageal Reflux Disease Take 1 (one) tablet by mouth once daily Reasons: Gastroesophageal Reflux Disease, Indigestion 12/06/19 Active Active Problems Problem Noted Date Diagnosed Date Hypertension 11/26/2022 Seizure-like activity 11/26/2022 Bipolar disorder 11/26/2022 GERD (gastroesophageal reflux disease) 3 Acute kidney injury (FARHAN) with acute tubular nec rosis (ATN) 11/26/2022 Anemia in chronic kidney disease (CKD) 3 Diabetes mellitus 11/26/2022 Diabetic foot ulcer 11/26/2022 Atrial fibrillation, unspecified type 11/24/2022 Leukocytosis, unspecified type 11/24/2022 Altered mental status, unspe cified altered mental status type 11/24/2022 Hyperglycemia due to diabetes mellitus 3 Cerebrovascular accident (CVA), unspecified mech anism 06/17/2022 Facial droop due to acute stroke 06/18/2021 Atrial fibrillation 06/18/2021 Left arm weakness 06/17/2021 Right pontine stroke 06/14/2021 Syncope and collapse 02/22/2021 Weakness 02/22/2021 PAD (peripheral artery disease) 02/22/2021 CAD (coronary artery disease) 02/22/2021 History of CVA (cerebrovascular accident) 2020 FARHAN (acute kidney injury) 02/22/2021 Bradycardia 02/22/2021 RBBB 02/22/2021 Diplopia 02/14/2012 Altered mental status 11/20/2011 Type 2 diabetes mellitus without complications 0 11/20/2011 Overview (12/16/2024): IMO 06/17/2024 IMO 12/16/2024 Essential (primary) hypertension 11/20/2011 Immunizations Immunization Administration Dates Next Due INFLUENZA VACCINE, TRIV. (AF LURIA, FLUZONE TRIVALENT; 6MO+) (IIV3) 01/30/2012 PNEUMOCOCCAL PPSV23 01/31/2012 Family History Medical History Relation Name Comments Diabetes Father Heart Disease Father Status: Alive Depression Mother Status: Alive Heart Disease Mother Hypertension Mother Relation Name Status Comments Father Mother Social History Tobacco Use Types Packs/Day Years Used Date Smoking Tobacco: Never Smokeless Tobacco: Never Tobacco Cessation:Counseling Given: Not Answered Alcohol Use Standard Drinks/Week Comments No 0 (1 standard drink = 0.6 oz pur e alcohol) AUDIT-C Answer Date Recorded Q1: How often do you have a drink containing alcohol? Never 11/24/2022 Q2: How many drinks containi ng alcohol do you have on a typical day when you are drinking? Patient does not drink Q3: How often do you have si x or more drinks on one occasion? Never 11/24/2022 Overall Financial Resource Strain (CARDIA) Answe r Date Recorded How hard is it for you to pa y for the very basics like food, housing, medical care, and heating? Not hard at all 11/24/2022 PHQ-2 Answer Date Recorded Patient Health Questionnaire-2 Score 0 11/29/2022 [facility] Occupat ional Health - Occupational Stress Questionnaire Answer Date Recorded Do you feel stress - tense, restless, nervous, or anxious, or unable to sleep at night because your mind is troubled all the time - these days? Not at all 11/24/2022 Hunger Vital Sign Answer Date Recorded Within the past 12 months, y ou worried that your food would run out before you got the money to buy more. Never true 11/25/19 23 Within the past 12 months, t he food you bought just didn't last and you didn't have money to get more. Never true 11/24/2022 PRAPARE - Transportation Answer Date Re corded In the past 12 months, has l ack of transportation kept you from medical appointments or from getting medications? No 11/2022 In the past 12 months, has l ack of transportation kept you from meetings, work, or from getting things needed for daily living? No 11/24/2022 Housing Stability Vital Sign Answer James e Recorded In the last 12 months, was t here a time when you were not able to pay the mortgage or rent on time? No 11/24/2022 In the last 12 months, how many places have you lived? 1 11/24/2022 In the last 12 months, was t here a time when you did not have a steady place to sleep or slept in a chcf (including now)? No 11/24/2022 Sex and Gender Information Value Date Recorded Sex Assigned at Not on file Legal Sex Male 9:07 AM CDT Gender Identity Not on file Sexual Orientation Not on file Last Filed Vital Signs Vital Sign Reading Time Taken Comments Blood Pressure 175/61 12/04/2022 3:35 PM CDT Pulse 56 12/04/2022 3:35 PM CDT Temperature 37.1 C (98.8 F) 12/04/2022 8:09 AM CDT Respiratory Rate 18 12/04/2022 8:09 AM CDT Oxygen Saturation 92% 12/04/2022 3:35 PM CDT Inhaled Oxygen Concentration - - Weight 95 kg (209 lb 7 oz) 11/26/2022 1:00 AM CD T Height 165.1 cm (5' 5) 11/25/2022 12:30 PM CDT Body Mass Index 34.85 11/25/2022 12:30 PM CDT Plan of Treatment Health Maintenance Due Date Last Done Comments COLOGUARD (AGES 45-75) - COLON CA SCREENING 1961 COLON MONITORING 1961 COLONOSCOPY - COLON CA SCREENING 1961 CT COLONOGRAPHY - COLON CA SCREENING 1961 Colorectal Cancer Screening 1961 FIT - COLON CA SCREENING 1961 FLEX SIG - COLON CA SCREENING 1961 HIV SCREENING 1976 HEPATITIS C SCREENING 09/17/1979 DTAP/TDAP/TD VACCINES (1 - Tdap) 1980 Respiratory Syncytial Virus (RSV) Vaccine Pt: or over 60 yrs (1 - Risk 50-74 years 1-dose series) 09/22/2011 ZOSTER VACCINE (1 of 2) 09/22/2011 PNEUMOCOCCAL VACCINE 50+ (2 of 2 - PCV) 01/30/2013 01/31/2012 DIABETES RETINOPATHY SCREENING 11/24/2022 02/14/2012 DIABETES-FOOT EXAM WITH MONOFILAMENT 11/24/2022 DIABETES-HGB A1C 02/23/2023 11/24/2022, 06/2021, 02/23/2021, Additional history exists DIABETES-SERUM CREATININE 12/05/20232022, 12/03/2022, 12/02/2022, Additional history exists DIABETES - URINE PROTEIN SCREENING 03/18/2024 MEDICARE AWV CALENDAR YEAR 2024 COVID-19 VACCINE (3 - season) 2024 01/22/2021, 12/31/2020 INFLUENZA VACCINE (#1) 2024 , 01/06/2020, 01/29/2019, Additional history exists HEPATITIS B VACCINE Aged Out No longe r eligible based on patient's age to complete this topic HIB VACCINE Aged Out No longer eligi ble based on patient's age to complete this topic HPV VACCINE Aged Out No longer eligi ble based on patient's age to complete this topic MENINGOCOCCAL (Group B) VACCINE SHARED DECISION-MAKING Aged Out No longer eligible based on patient's age to complete this topic MENINGOCOCCAL GROUPS A/C/Y/W VACCINE Aged Out No longer eligible based on patient's age to complete this topic Procedures Procedure Name Priority Date/Time Associated Diagnosis Comments COMPREHENSIVE METABOLIC PANEL Routine 12/04/2022 6:17 AM CDT HEMOGLOBIN A1C Add on 11/24/2022 11:35 AM CDT from Last 3 Months or Most Recently Relevant to Health Maintenance Results * (ABNORMAL) COMPREHENSIVE METABOLIC PANEL (12/04/2022 6:17 AM CDT) BUN 16 7 - 26 mg/dL 12/04/2022 7:37 AM CDT [facility] Creatinine 1.48(H) 0.71 - 1.16 mg/dL 12/04/2022 7:37 AM [facility] Sodium 138 136 - 145 mmol/L 12/04/2022 7:37 AM [facility] Potassium 4.9(H) 3.5 - 4.5 mmol/L 12/04/2022 7:37 AM [facility] Chloride 106 98 - 107 mmol/L 12/04/2022 7:37 AM [facility] CO2 30(H) 22 - 29 mmol/L 12/04/2022 7:37 AM [facility] Glucose 165(H) 70 - 115 mg/dL 12/04/2022 7:37 AM [facility] Calcium 8.5 8.4 - 10.2 mg/dL 12/04/2022 7:37 AM [facility] Protein Total 5.4(L) 6.0 - 8.3 g/dL 12/04/2022 7:37 AM [facility] Albumin 2.0(L) 3.4 - 5.0 g/dL 12/04/2022 7:37 AM [facility] Bilirubin Total 0.2 0.2 - 1.2 mg/dL 12/04/2022 7:37 AM [facility] Alkaline Phosphatase 87 40 - 150 U/L 12/04/2022 7:37 AM [facility] ALT 18 5 - 55 U/L 12/04/2022 7:37 AM [facility] AST 16 5 - 34 U/L 12/04/2022 7:37 AM [facility] Anion Gap 2(L) 6 - 16 12/04/2022 7:37 AM [facility] BUN/Creatinine Ratio 11 7 - 23 12/04/2022 7:37 AM [facility] Osmolality Calculated 291 270 - 300 mOsm/kg 12/04/2022 7:37 AM [facility] Albumin/Globulin Ratio 0.6(L) 1.1 - 2.3 12/04/2022 7:37 AM [facility] eGFR by CKD-EPI 53(L) >=90 mL/min/1.7 3 m2 12/04/2022 7:37 AM CDT [facility] Blood BLOOD SPECIMEN / Unknown Lab Venipuncture / Unknown 12/04/2022 6:17 AM CDT 12/04/2022 7:04 AM CDT Nii Candelaria MD LAB - CHEMISTRY ORDERABLES Fin al Result Performing Organization Address City/[facility]/ZIP Co de Phone Number [address] [address], [place] [phone] * (ABNORMAL) HEMOGLOBIN A1C (11/24/2022 11:35 AM CDT) Hemoglobin A1c 10.4(H) <=5.6 % 11/24/2022 1:26 PM CDT [facility] Estimated Average Glucose 252 mg/dL 11/24/2022 1:26 PM T [facility] Comment: HbA1c Interpretation: Normal : < 5.7% Pre-diabetes: 5.7-6.4% Diabetes: Equal to or greater than 6.5% Test results diagnostic of diabetes should be repeated for confirmation. Treatment target values recommended by ADA and other clinical organizations should be used to evaluate metabolic control in patients. Reference: [place] Diabetes Association, Standards of Care in Diabetes -2020 In patients 70 years and older consider HbA1c target range of 7.0-7.5% (Reference: Kee Longoria et al. JAMDA. 2012) The Sebia assay for the measurement of HbA1c is a National Glycohemoglobin Standardization Program (NGSP) certified method. Blood BLOOD SPECIMEN / Unknown Venipuncture / Unknown 11/24/2022 11:35 AM CDT 11/24/2022 11:45 AM CDT Taina Collins MD LAB - CHEMISTRY ORDERABLES Fin al Result Performing Organization Address City/[facility]/ZIP Co de Phone Number [address] [address], [place] [phone] from Last 3 Months or Most Recently Relevant to Health Maintenance Additional Health Concerns Infection Onset Date Last Indicated MRSA 11/24/2022 11/24/2022 Insurance [employer]ICARE ADV [employer] MED[employer]ARE ADV [employer]IC[employer] ADV Advance Directives * LIMITED RESUSCITATION-PRIOR AND AFTER ARREST (Latest Code Status on File) Date Activated Date Inactivated Comments 11/24/2022 7:15 PM 12/04/2022 4:55 PM Question Answer Comments Limited Resuscitation: No Chest Compression * Full Code Date Activated Date Inactivated Comments 11/24/2022 9:54 AM 11/24/2022 7:15 PM * Full Code Date Activated Date Inactivated Comments 06/17/2021 3:28 AM 06/20/2021 8:04 PM * Full Code Date Activated Date Inactivated Comments 02/22/2021 12:42 PM 02/24/2021 6:19 PM Care Teams Magazine Journalist Relationship Specialty Start Date End Date Shane Doll MD [address] [facility] [address] [place] [address] PCP - General Internal Medicine 11/24/22 Shane Doll MD [address] [facility] [address] [place] [address] Internal Medicine 11/24/22
--- OUTSIDE RECORDS SUMMARY | 2025-03-04 11:44 | XMS_ITS | Clinical Summary ---
Author Organization [place] [id number] Address [address] [place] [address] Care Team Providers Care Band Aid Machine Operator Name Role Phone Natalie Lane RN Unavailable Unavailab Shane Yusuf MD Primary Care Provider Robert Buck MD Unavailable Robert Dorado MD Unavailable [phone] Hugo Houston MD Unavailable Luis Esteban MD Unavailable [phone] Allergies No known active allergies Medications aspirin 81 mg tablet Take 1 tablet (81 mg total) by mouth daily. 8 Active atorvastatin (LIPITOR) 80 mg tablet Take 1 tablet (80 mg total) by mouth daily. 8 Active Additional Information Patient taking differently: 40 mgoral Daily, Reported on 04/01/2018 clopidogrel (PLAVIX) 75 mg tablet Take 1 tablet (75 mg total) by mouth daily. 8 Active divalproex ER (DEPAKOTE ER) 500 mg 24 hr tablet Take 1 tablet (500 mg total) by mouth daily. 8 Active blood-glucose meter misc 1 Box 3 (three) times a day with meals. 2 8 Active blood glucose diagnostic strip Use 2 times daily with meals 8 Active lancets 30 gauge misc 1 Box 2 (two) times a day. 8 Active insulin lispro (HumaLOG) 100 unit/mL insulin pen Inject 7 Units under the skin 3 (three) times a day with meals. 12.6 mL 8 Active Additional Information Patient not taking.Reported on 04/01/2018 PARoxetine (PAXIL) 20 mg tablet Take 1 tablet (20 mg total) by mouth every morning. 60 tablet 8 Active carvedilol (COREG) 12.5 mg tablet Take 1 tablet (12.5 mg total) by mouth 2 (two) times a day with meals. 14 tablet 9 Active lisinopril (PRINIVIL,ZESTRI L) 20 mg tablet Take 1 tablet (20 mg total) by mouth daily. 7 tablet 9 Active omeprazole (PriLOSEC) 20 mg capsule Take 20 mg by mouth daily. Active glipiZIDE (GLUCOTROL) 5 mg tabletIndication s:type 2 diabetes mellitus,TAKE 1 TABLET IN THE MORNING AND 2 TABLETS IN THE EVENING 5 mg. 9 Active spironolactone-h ydroCHLOROthiazi de (ALDACTAZIDE) 25-25 mg per tablet 9 Active gabapentin (NEURONTIN) 100 mg capsule Take 1 capsule (100 mg total) by mouth 2 (two) times a day 60 capsule 11 0 Active insulin lispro (HumaLOG) 100 unit/mL insulin pen Inject 10 Units under the skin 3 (three) times a day with meals 18 mL 0 Active insulin lispro (HumaLOG) 100 unit/mL insulin pen Inject 1-7 Units under the skin 3 (three) times a day with meals (1 unit for every 25 mg/dL blood glucose greater than 150 mg/dL up to max 7 units) Refer to After Visit Summary for Sliding Scale Insulin Instructions. 15 mL 0 Active pen needle, diabetic 32 gauge x 5/32 needle Use as directed 3 times a day. 100 each 0 Active pen needle, diabetic (Pen Needle) 32 gauge x 5/32 needle Use as directed once a day. 100 each 0 Active ascorbic acid (VITAMIN C ORAL)Indications :supplement Take 1 tablet by mouth daily. Indications: supplement Active docosahexaenoic acid/epa (FISH OIL ORAL)Indications :supplement Take 1 Dose by mouth daily. Indications: supplement Active Lactobacillus acidophilus (PROBIOTIC ORAL)Indications :supplement Take 1 tablet by mouth daily. Indications: supplement Active insulin lispro (HUMALOG KWIKPEN INSULIN SUBQ)Indications :diabetes Inject 100 Units under the skin 3 (three) times a day. 1-5 units from 150-200 10- units for over 200 15-units for over 300 if reaches over 400 call Indications: diabetes Active melatonin 10 mg tablet extended release Take by mouth Active sulfamethoxazole -trimethoprim (BACTRIM DS) 800-160 mg per tablet Take by mouth 2 (two) times a day Active cephalexin (KEFLEX) 500 mg capsuleIndicatio ns:Skin/Soft Tissue Infection Take 1 capsule (500 mg total) by mouth 2 (two) times a day 20 capsule 0 Active Active Problems Problem Noted Date Diagnosed Date Claudication 02/23/2020 Overview (02/23/2020): Added automatically from request for surgery [id number] Gangrene of toe of right foot 10/18/2019 Ankle wound, right, initial encounter 10/18/2019 Hyponatremia 10/18/2019 Uncontrolled type 2 diabetes mellitus with hyper glycemia 10/18/2019 Dysphagia 10/18/2019 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 Per PCP altered discharge medication list in setting of refractory HTN. At home patient on Amlodipine 10, Coreg 12.5 daily, Aldactazide (HCTZ25, Spironolactone), Lisinopril 20 mg PO daily per medications brought in by this AM. -In setting of NSTEMI goal SBP<140 however patient w/ hx of multiple strokes of unclear etiology. At this time s/p LHC and s/p troponin downtrend will alow for permissive HTN w/ SBP 140s-160s -continue amlodipine 10 mg PO daily -increase to Coreg 25 mg PO BID -CTM Hx of ischemic multifocal mu ltiple vascular territories stroke 02/01/2018 Assessment & Plan (02/02/2018 4:45 PM FLAT SCREEN WORKER): Patient of Dr. Simmons w/ hx of rapidly progressing vascular dementia. ? Of CADASIL syndrome per Dr. Simmons's last note -ASA -High potency statin -CTM Coronary artery disease invo lving autologous artery coronary bypass graft without angina pectoris 02/01/2018 Assessment & Plan (02/02/2018 4:45 PM FLAT SCREEN WORKER): Hx of CAD first diagnosed in 2001 in setting non-Q-wave [facility]. Following this, he underwent a cardiac catheterization, which showed severe multivessel coronary artery disease where he had a total occlusion of the right coronary artery and 80% stenosis of the LAD and 90% stenosis of the left circumflex. There was mild LV systolic dysfunction with an EF of 50% with akinesis of the posterior basal segment. He underwent a coronary artery bypass surgery on the January where he had a SWAIN graft to the LAD and a left radial T-graft to the OM and the PDA. -continue ASA -continue Beta-mary -NPO at [facility] for [facility] P[facility] (peripheral artery disease) 02/01/2018 Assessment & Plan (02/04/2018 3:49 PM FLAT SCREEN WORKER): Patient presenting w/ RLE intermittent claudication w/ signs of severe stenosis and areas of complete occlusion on CTA (see HPI). Vascular evaluated patient and determined patient not candidate for acute intervention in setting of palpable and/or dopplerable pulses, warm extremities and normal neurovasculature. Patient s/p vascular interventions at [facility] in 2010, 2011,2012 and 2014. -s/p ROLA this AM -Vascular surgery following -obtain OSH records for anatomy of LE vasculature and stent placement -continue DAPT for LE stents -neurovascular checks q12hrs RBBB 02/01/2018 Assessment & Plan (02/01/2018 9:19 PM FLAT SCREEN WORKER): Patient w/ documented RBBB dating back to 2007. Seen on EKG on arrival. -CTM Pure hypercholesterolemia 12/05/2017 Assessment & Plan (02/01/2018 6:15 PM FLAT SCREEN WORKER): Patient admitted in November in the setting of stroke. At that time TC 205, TG332 LDL 119. At that time patient started on high-potency statin therapy. On this presentation patient w/ much improved numbers now w/ TC113, TG95, LDL67. -continue atorvastatin 80mg PO QHS Assessment & Plan (12/06/2017 1:48 PM CDT): Cont statin Assessment & Plan (12/05/2017 10:54 AM CDT): Cont statin High risk medication use 12/04/2017 Overview (12/04/2017): This patient is at high risk for metabolic deterioration related to being on insulin therapy in the setting of multiple co-morbidities. Intensive monitoring is needed to allow for safe, targeted dosing of insulin. Adjustments in dosing will be made based on the blood sugar monitoring and patient variables. Assessment & Plan (12/06/2017 1:48 PM CDT): This patient is at high risk for metabolic deterioration related to being on insulin therapy in the setting of multiple co-morbidities. Intensive monitoring is needed to allow for safe, targeted dosing of insulin. Adjustments in dosing will be made based on the blood sugar monitoring and patient variables. Assessment & Plan (12/05/2017 10:54 AM CDT): This patient is at high risk for metabolic deterioration related to being on insulin therapy in the setting of multiple co-morbidities. Intensive monitoring is needed to allow for safe, targeted dosing of insulin. Adjustments in dosing will be made based on the blood sugar monitoring and patient variables. Assessment & Plan (12/04/2017 7:02 PM CDT): This patient is at high risk for metabolic deterioration related to being on insulin therapy in the setting of multiple co-morbidities. Intensive monitoring is needed to allow for safe, targeted dosing of insulin. Adjustments in dosing will be made based on the blood sugar monitoring and patient variables. Cerebrovascular accident (CVA) 08/08/2015 Assessment & Plan (02/04/2018 7:04 AM FLAT SCREEN WORKER): Hx of CVA for which he was hospitalized on 11/2017. Concern for new stroke s/p procedure not rule out completely although exam findings and confusion likely 2/2 anesthesia. Will CTM and re-consult neurology and perform bMRI if other concerns arise -continue seizure prophylaxis w/ depakote -continue secondary prevention as above in vascular dementia session. Assessment & Plan (12/06/2017 1:48 PM CDT): Need to avoid hyper and hypoglycemia which could exacerbate condition Assessment & Plan (12/05/2017 10:54 AM CDT): Need to avoid hyper and hypoglycemia which could exacerbate condition Assessment & Plan (12/04/2017 7:00 PM CDT): Probably TIA per neurology Needs better glucose control Diabetic polyneuropathy asso ciated with type 2 diabetes mellitus 03/31/2015 Assessment & Plan (02/01/2018 6:18 PM FLAT SCREEN WORKER): Patient w/ longstanding hx of T2DM previously on oral agents. W/ chronic hx of medication noncompliance dating back to 2007 per documentation. On last admission 12/03/2017 A1C elevated to 11.1% Patient was seen by endocrinology and regimen was recommended which we will continue during this hospitalization -Lantus 18U QHS -Lispro 7U TID AC -POC glucose QID -medium dose ISS for NPO patients Assessment & Plan (12/06/2017 1:48 PM CDT): Patient started on basal/bolus insulin regimen. BS remain elevated. Will increase Lantus and Humalog. Patient seems motivated to get BS under better control. Home regimen:Januvia 100mg qdaily, glipizide ER 2.5mg qdaily, and metformin 1g BID. Most recent A1C 11.1. Recommend -Increase Lantus 15-->18 units qhs -Increase Humalog 4-->7 units tid -cont mid dose QID -monitor BS QID Recommend d/c to rehab on above regimen. Doses will likely need to be titrated further Once home recommend metformin + basal/bolus insulin regimen (doses will need to be determined by rehab). Would not resume januvia or glipizide as outpatient DM educator to see patient Request placed for follow-up appointment with DM educator and provider in DM center. Please have patient call center [phone] 7 days after discharge if he has not been contacted for appointment. Call [phone] with questions on day of service only. If after hours or weekends, please contact the Diabetes Fellow at [phone], option #1 Call [phone] with questions on day of service only. If after hours or weekends, please contact the Diabetes Fellow at [phone], option #1 Assessment & Plan (12/05/2017 10:55 AM CDT): Patient started on basal/bolus insulin regimen. DM poorly controlled but BS control improving. May need increase in Humalog. Patient seems motivated to get BS under better control. Home regimen:Januvia 100mg qdaily, glipizide ER 2.5mg qdaily, and metformin 1g BID. Most recent A1C 11.1. Recommend -Cont Lantus Lantus 15 units qhs Cont Humalog 4 units tid-->will increase if prandial BS remain elevated -change slide from high to mid dose QID -monitor BS QID -consult caponizer For discharge recommend metformin + basal/bolus insulin regimen (doses to be determined closer to discharge). Would not resume januvia or glipizide as outpatient DM educator has been consulted for insulin teaching Request placed for follow-up appointment with DM educator and provider in DM center. Please have patient call center [phone] 7 days after discharge if he has not been contacted for appointment. Call [phone] with questions on day of service only. If after hours or weekends, please contact the Diabetes Fellow at [phone], option #1 Assessment & Plan (12/04/2017 6:59 PM CDT): 57 y.o. male with T2DM, CAD s/p CABG and stents on dual antiplatelet therapy, prior TIA, vascular dementia, and hyperlipidemia presented with three days of weakness and found to have multiple acute strokes on bMRI, for whom Endocrinology is consulted for management of the patient's T2DM. Pt diagnosed with T2DM approximately in 2000, c/b neuropathy and vascular dementia 2/2 multiple lacunar infarcts. Home regimen:Januvia 100mg qdaily, glipizide ER 2.5mg qdaily, and metformin 1g BID. Reports BGs 200s. Most recent A1C 11.1. Inpatient Hx BG over past 24 hours ranged 215-306 Total daily insulin dose was 23u. Current regimen: LDSSI q4hrs. Inpatient target for this patient is 100-180 mg/dl. Recommendation: - Starting lantus 15u, humalog 4u TID w meals, and LDSSI TID/qHS - q4hr accuchecks - Diabetes Education - Needs to follow with television writer as an outpatient. Resolved Problems Problem Noted Date Diagnosed Date Resolved Date NSTEMI (non-ST elevated myoc ardial infarction) 02/01/2018 03/25/2018 Assessment & Plan (02/04/2018 7:06 AM FLAT SCREEN WORKER): Patient w/ hx of CAD presenting w/ acute onset of CP. EKG remarkable only for RBBB w/o signs of acute ischemia. Troponin initially <0.03-> 0.03-> .0.11->0.25->0.56->0.37. GEO score of 5 points (26% all-cause mortality risk). -heparin gtt. Consecutive therapeutic PTT -telemetry monitoring -ASA, Plavix, B-mary -LCH performed on 02/03/2018 w/o intervenable lesions. 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 018 Immunizations Immunization Administration Dates Next Due Influenza, Quadrivalent, Spl it, Preservative Free, Intramuscular 12/03/2017 Surgical History Surgery Date Site/Laterality Comments MN BYP OTH/THN VEIN AORTOFEMORAL Bypass Graft (Non-Vein) Aortic-femoral - (Added by TW Conv) MN PRQ TRLUML CORONARY STENT W/ANGIO ONE ART/BRNCH Cath Placement Of Stent 1 - (Added by TW Conv) TOE AMPUTATION Medical History Medical History Date Comments Stroke (HCC) Hypertension Diabetes mellitus AAA (abdominal aortic aneurysm) Patient denies that he has a hx of AAA and prior CT A/P 2017 did not show a AAA Hx of CABG Impotence 03/22/2018 Type 2 diabetes mellitus GERD (gastroesophageal reflux disease) Family History Medical History Relation Name Comments Coronary artery disease Father Diabetes Father Heart attack Father Hypertension Father Hypertension Mother Stroke Mother Relation Name Status Comments Father Mother Social History Tobacco Use Types Packs/Day Years Used Date Smoking Tobacco: Never Smokeless Tobacco: Never Alcohol Use Standard Drinks/Week Comments No 0 (1 standard drink = 0.6 oz pur e alcohol) PHQ-2 Answer Date Recorded PHQ-2 Score 4 11/05/2018 Sex and Gender Information Value Date Recorded Sex Assigned at Not on file Legal Sex Male 10:59 PM FLAT SCREEN WORKER Gender Identity Not on file Sexual Orientation Not on file Occupation Industry Job Start Date Job End Date Disabled Not on file Not on file Not on file Last Filed Vital Signs Vital Sign Reading Time Taken Comments Blood Pressure 159/75 02/26/2020 3:45 PM FLAT SCREEN WORKER Pulse 58 02/26/2020 3:45 PM FLAT SCREEN WORKER Temperature 36.8 C (98.2 F) 02/26/2020 3:45 PM FLAT SCREEN WORKER Respiratory Rate 16 02/26/2020 3:45 PM FLAT SCREEN WORKER Oxygen Saturation 100% 02/26/2020 3:45 PM FLAT SCREEN WORKER Inhaled Oxygen Concentration - - Weight 107.8 kg (237 lb 10.5 oz) 2019 12:35 PM FLAT SCREEN WORKER Height 167.6 cm (5' 6) 02/24/2020 12:3 5 PM FLAT SCREEN WORKER Body Mass Index 38.36 02/24/2020 12:35 PM FLAT SCREEN WORKER Plan of Treatment Health Maintenance Due Date Last Done Comments Albumin Creatinine Ratio, Urine 1961 Colon Cancer Screening-Colonoscopy 1961 Hepatitis C Screening 1961 Prostate Cancer Screening-PSA 1961 Dilated Eye Exam 1961 Foot Exam 1961 DTaP/Tdap/Td Vaccine (1 - Tdap) 1972 Hepatitis B Screening 09/22/1979 Regular Well Visit/Exam 18-64 09/22/1979 Zoster Vaccine (1 of 2) 09/22/2011 Depression Screening 12/02/2018 12/02/2017, 12/03/19 18 Lipid Panel 03/22/2019 03/22/2018, 01/16, 12/03/2017 Hemoglobin A1C 04/19/2020 10/18/2019, 01/16, 12/03/2017 Pneumococcal vaccine <65 (2 of 2 - PCV) 01/05/2021 01/06/2020, 02/20/2018, 01/31/2012, Additional history exists eGFR 02/25/2021 02/26/2020, 02/15, 02/23/2020, Additional history exists Covid-19 Vaccine (3 - 2024-2 6 season) 2024 01/22/2021, 12/31/2020 Influenza Vaccine (#1) 2024 3, 12/18/2021, 12/31/2020, Additional history exists Medical Devices Implanted Type Area Mobile Application Architect Device Identifier Shelf Expiration Date Model / Serial / Lot [employer] [id number] Vascade 6/7fr Bioabsorbable Vascular System Compression Collagen - [id number] Implanted:Qty: 1 on 10/19/2019 by Shilo Jeffery MD at [facility] Other - see comments Left: Femoral [employer] 06/01/2021 [id number] -[id number] / / [id number] Description:Vascular Closure Device [employer] [id number] Xience Josey 3mm 33mm Rapid Exchange System Coronary Stent - [id number] - [id number] Implanted:Qty: 1 on 03/24/2018 by Al Araya MD at [facility] Stent [employer] 10/04/2018 1550 300- 33 / [id number] / [id number] [employer] [id number] Zilver Ptx 7mm 40mm 125cm Drug Elute Otw Delivery System - [id number] Implanted:Qty: 1 on 10/19/2019 by Shilo Jeffery MD at [facility] Stent Right: Other - see comments [employer] 11/26/2019 [id number] / / [id number] Description:Implanted - Righ t Superficial Femoral Artery - Popliteal Artery segment [employer] [id number] Vascade 6/7fr Bioabsorbable Vascular System Compression Collagen - [id number] Implanted:Qty: 1 on 02/24/2020 by Shilo Jeffery MD at [facility] Right: Groin [employer] [id number] 12/23/2021 [id number] -[id number] / / [id number] Procedures Procedure Name Priority Date/Time Associated Diagnosis Comments EGFR Routine 02/26/2020 4:58 AM FLAT SCREEN WORKER HEMOGLOBIN A1C Routine 10/18/2019 6:17 AM CDT LIPID PANEL STAT 03/22/2018 3:32 PM FLAT SCREEN WORKER from Last 3 Months or Most Recently Relevant to Health Maintenance Results * eGFR (02/26/2020 4:58 AM FLAT SCREEN WORKER) eGFR 50 mL/min/1.7 3 m2 [facility] Comment: Interpretive Data Reference Interval Normal >/= 90 mL/min/1.73m2 Mildly decreased* 60 - 89 mL/min/1.73m2 Mildly to moderately decreased 45 - 59 mL/min/1.73m2 Moderately to severely decreased 30 - 44 mL/min/1.73m2 Severely decreased 15 - 29 mL/min/1.73m2 Kidney Failure < 15 mL/min/1.73m2 *Relative to young adult level If -[place] multiply value by 1.16. Estimated glomerular filtration rate is determined by the CKD-EPI equation recommended by the National Kidney Foundation (KDIGO 2012 Clinical Practice Guideline for the Evaluation and Management of Chronic Kidney Disease. Kidney Intnl Suppl Mar 2012;3:1). The CKD-EPI equation should not be used for patients with unstable renal function and has not been validated in children and those over 70. Current interpretive data was last reviewed 2016. Blood specimen (specimen) 02/26/2020 4:58 AM FLAT SCREEN WORKER 02/26/2020 6:43 AM FLAT SCREEN WORKER Goldie DANIELSON LAB BLOOD ORDERABLES Final Result Performing Organization Address [facility] de Phone Number [facility] [address] [facility] [place] [address] * (ABNORMAL) Hemoglobin A1c (10/18/2019 6:17 AM CDT) Hgb A1C 12.4(H) 4.0 - 5.6 % [facility] Estimated Average Glucose 309 mg/dL [facility] Comment: The ADA recommends reporting an estimated Average Glucose (eAG) with all Hemoglobin A1c results using the equation derived from a study of 507 normal and diabetic adults. Minority populations were underrepresented and children were not included. (Diabetes Care 31:8540-3150, 2008). The eAG is not equivalent to a fasting glucose. Blood specimen (specimen) 10/18/2019 6:17 AM CDT 10/18/2019 7:09 AM CDT Result [facility] Saud Noriega MD LAB BLOOD ORDERABLES Fin al Result Performing Organization Address [facility] de Phone Number [facility] [address] [place] [address] * (ABNORMAL) Lipid panel (03/22/2018 3:32 PM FLAT SCREEN WORKER) Cholesterol 115 30 - 199 mg/dL [facility] Comment: Interpretive Data Ages < or = 19 years Acceptable: <170 mg/dL Borderline high: 170-199 mg/dL High: >or= 200 mg/dL Ages > or = 20 years Desirable: <200 mg/dL Borderline high: 200-239 mg/dL High: >or= 240 mg/dL Literature References: 1. Expert Panel on Integrated Guidelines for Cardiovascular Health and Risk Reduction in Children and Adolescents. Pediatrics 2011;128:S213 2. NCEP Expert Panel. Circulation 2004;110:227 Current Interpretive Data was last revised on 2017. Triglycerides 125 <=149 mg/dL [facility] Comment: Interpretive Data Ages < or = 9 years Acceptable: <75 mg/dL Borderline high: 75-99 mg/dL High: >or= 100 mg/dL Ages 10 to 20 years Acceptable: <90 mg/dL Borderline high: 90-129 mg/dL High: >or= 130 mg/dL Ages > or = 20 years Desirable: <150 mg/dL Borderline high: 150-199 mg/dL High: 200-499 mg/dL Very high: >or= 499 mg/dL Literature References: 1. Expert Panel on Integrated Guidelines for Cardiovascular Health and Risk Reduction in Children and Adolescents. Pediatrics 2011;128:S213 2. NCEP Expert Panel. Circulation 2004;110:227 Current Interpretive Data was last revised on 2017. HDL 24(L) >=40 mg/dL [facility] Comment: Interpretive Data Ages < or = 19 years Acceptable: >45 mg/dL Borderline low: 40-45 mg/dL Low: <40 mg/dL Ages > or = 20 years Desirable: >or= 60 mg/dL Low: <40 mg/dL Literature References: 1. Expert Panel on Integrated Guidelines for Cardiovascular Health and Risk Reduction in Children and Adolescents. Pediatrics 2011;128:S213 2. NCEP Expert Panel. Circulation 2003;110:227 Current Interpretive Data was last revised on 2017. LDL, calculated 66 <=129 mg/dL [facility] Comment: Interpretive Data Ages < or = 19 years Acceptable: <110 mg/dL Borderline high: 110-129 mg/dL High: >or= 130 mg/dL Ages > or = 20 years Optimal: <100 mg/dL Near optimal: 100-129 mg/dL Borderline high: 130-159 mg/dL High: >160 mg/dL Literature References: 1. Expert Panel on Integrated Guidelines for Cardiovascular Health and Risk Reduction in Children and Adolescents. Pediatrics 2011;128:S213 2. NCEP Expert Panel. Circulation 2004;110:227 Current Interpretive Data was last revised on 2017. Non-HDL Cholesterol 91 mg/dL [facility] Comment: Interpretive Data Ages < or = 19 years Acceptable: <120 mg/dL Borderline high: 120-144 mg/dL High: >145 mg/dL Ages > or = 20 years When triglycerides are >200 mg/dL, Non-HDL cholesterol is a secondary target of therapy with treatment goals that are 30 mg/dL greater than the LDL cholesterol target. Literature References: 1. Expert Panel on Integrated Guidelines for Cardiovascular Health and Risk Reduction in Children and Adolescents. Pediatrics 2011;128:S213 2. NCEP Expert Panel. Circulation 2004;110:227 Current Interpretive Data was last revised on 2017. Chol/HDL ratio 5 [facility] Blood specimen (specimen) 03/22/2018 3:32 PM FLAT SCREEN WORKER 03/22/2018 3:39 PM FLAT SCREEN WORKER Narrative [facility] - 03/22/2018 5:07 PM FLAT SCREEN WORKER Saud Bingham MD LAB BLOOD ORDERABLE S Final Result [facility] [address] [facility] [place] [address] from Last 3 Months or Most Recently Relevant to Health Maintenance Insurance [facility] MEDICARE ADVANTAGE [facility] MEDICARE Address: [facility] [address] [place] [address] [place] [address] [facility]F [facility] MEDICARE Address: [address] [address] [place] [phone] [facility]F [facility] MEDICARE Address: [facility] [address] [place] [id number] UHC MEDICARE ADVANTAGE [facility] MEDICARE Address: [address] [address] [place] [phone] Advance Directives For more information, please contact: [phone] * Full Code (Latest Code Status on File) Date Activated Date Inactivated Comments 02/24/2020 7:45 PM 02/26/2020 9:48 PM * Full Code Date Activated Date Inactivated Comments 10/18/2019 1:18 AM 10/26/2019 6:07 PM * Full Code Date Activated Date Inactivated Comments 03/22/2018 5:01 PM 03/25/2018 6:17 PM * Full Code Date Activated Date Inactivated Comments 02/01/2018 6:22 PM 02/04/2018 7:36 PM * Full Code Date Activated Date Inactivated Comments 12/03/2017 3:04 AM 12/06/2017 6:21 PM Care Teams Band Aid Machine Operator Relationship Specialty Start Date End Date Shane Doll MD PCP - General 02/04/[address] front window cashier 02/03/18 Robert Buck MD Continuity Writer Cardiology 05/14/18 Robert Dorado MD Consulting Physician Neurology 05/14/18 Hugo Houston MD [address] [place] [address] Consulting Physician Vascular Surgery 05/14/18 Luis Esteban MD [address] [place] [address] Endocrinology Diabetes & Metabolism 10/26/19
--- OUTSIDE RECORDS SUMMARY | 2025-03-04 11:44 | XMS_ITS | Clinical Summary ---
Author Organization [employer] [facility] Address [address] [place] [phone] Phone Care Team Providers Care Photocopier Technician Name Role Phone Sharmila Lynn MD Primary Care Provider [phone] Encounters Date Type Department Care Team Description 12/09/2024 Documentation Only [place] [facility] [address] [address] Rodriguez Booth DO 12/08/2024 Documentation Only [place] [facility] [address] [address] ProviderDenise MD from Last 3 Months Social History Tobacco Use Types Packs/Day Years Used Date Smoking Tobacco: Never Assessed Sex and Gender Information Value Date Recorded Sex Assigned at Not on file Legal Sex Male 11:19 AM EDT Gender Identity Not on file Sexual Orientation Not on file Plan of Treatment Health Maintenance Due Date Last Done Comments Colorectal Cancer Screening: Annual FOBT 2010 Colorectal Cancer Screening: Colonoscopy 2010 Colorectal Cancer Screening: Sigmoidoscopy 2010 Pneumococcal Vaccine: 50+ Years (3 of 3 - PCV) 01/05/2021 01/06/2020, 01/31/2012, 03/18/2011 Influenza Vaccine (#1) 2024 , 12/18/2021, 12/31/2020, Additional history exists Diabetes: Hemoglobin A1C 12/08/2024 11/24/2022, 08/0 04/2019 Diabetes: Ophthalmology Exam 12/08/2024 Diabetes: Pedal Pulse Checked 12/08/2024 Diabetes: Sensory Foot Exam 12/08/2024 Diabetes: Visual Foot Exam 12/08/2024 Hepatitis B Vaccine Aged Out No longe r eligible based on patient's age to complete this topic Insurance [facility] Medicare Care Teams Photocopier Technician Relationship Specialty Start Date End Date Sharmila Lynn MD [address] [place] [address] PCP - General Internal Medicine 12/08/24
[2025-03-04 11:46] LABS: Add Urine Microscopic? YES; Appearance Urine Cloudy (Clear); Glucose Urine UA Trace mg/dL (Negative); Leukocyte Esterase Ur 3+ LEU/UL (Negative); Need Manual Microscopic Reviewed; Nitrate Urine Positive (Negative); Specific Grav Ur 1.013 (1.001-1.035)
[2025-03-04 11:54] LABS: Alveolar/Arterial O2 Gradient 146.7 mmHg; Fractional Inspired Oxygen 28 %; HCO3 ABG 21.6 mEq/l (22.0-26.0); Oxygen Content ABG 13.0 %vol (16.0-22.0); Oxygen Saturation ABG 88.7 % (95.0-100.0); PCO2 ABG 39.4 mmHg (35.0-45.0); PO2 ABG 57.1 mmHg (80.0-100.0); PO2 FiO2 Ratio Arterial Blood 2.04 %
[2025-03-04 11:57] LABS: Thyroid Stimulating Hormone 1.850 uIU/mL (0.465-4.680)
[2025-03-04 12:23] LABS: Modified Allen's Test Pass; Site Drawn RIGHT RADIAL
[2025-03-04 12:24] LABS: Liters per Minute 3.0 LPM
[2025-03-04] MEDS: SODIUM CHLORIDE 0.9% IV 1,000 ML 999 ML IV CONT (12:37)
[2025-03-04] MEDS: cefTRIAXone 1 GM in SODIUM CHLORIDE 0.9% IV 50 ML 100 ML IVPB (12:37)
[2025-03-04 13:01] LABS: Influenza A QL RT-PCR Negative (Negative); Influenza B QL RT-PCR Negative (Negative); RSV RNA, RT-PCR Negative (Negative); SARS-CoV-2 RNA PCR Negative (Negative)
--- NOTE | 2025-03-04 13:03 | PM.IMHP2 ---
H&P: HPI History of Present Illness Date/Time: 03/04/25 13:03 Chief Complaint: AMS Narrative: 64-year-old male with a past medical history of GERD, CKD, HFpEF, DM 2, multiple CVAs, afib, CAD s/p CABG x 3, vascular dementia, PAD presents to the ED on 03/04/2025 with altered mental status per his . states that patient has been not acting like himself for about 1 week. Patient is A&O x4 on presentation. She states he has congestion and low urine output that started yesterday and is not as energetic. Patient has been bed-bound for about 1 year due to a CVA. Lives at home with his . Denies fevers, chest pain, shortness a breath. Patient does endorse pressure injuries to his sacrum. Most recent admission to this facility was in September of 2023 with altered mental status and hallucinations. patient was treated for a UTI, diastolic heart failure, and acute on chronic respiratory failure possibly due to atelectasis, fluid overload, or YOLANDA. Patient was sent home with 2 L O2 per nasal cannula. Initial vital signs 162/71, HR 61, respirations 18, afebrile and 96% on room air. Labs revealed leukocytosis with WBC 13.7, baseline anemia. ABG pH 7.357, pCO2 39.4, PO2 57.1, HC03 21.6, O2 saturation 88.7, oxyhemoglobin 87 on nasal cannula at 3 L. sodium 132, BUN 40, creatinine 2.42 with GFR 27. Glucose elevated at 241. UA with 3+ protein, trace glucose, 2+ blood, positive nitrate, 3+ leukocyte esterase, 3-5 RBC, > 100 WBC, no bacteria seen. ethyl alcohol negative. Viral PCR negative. D-dimer 1.25. EKG shows a flutter with normal ventricular rate and right bundle branch block. Head CT old right lacunar infarcts and chronic white vessel ischemic changes. Chest x-ray reads no uqincy pulmonary edema or large effusion. V/Q scan with low probability of pulmonary embolism. Review of Systems Review of Systems: All systems reviewed & are unremarkable except as noted in HPI and below PMFSH Past Medical History Medical History Acute respiratory failure Anemia Bipolar disease, chronic Cerebrovascular accident Multiple strokes with residual left-sided weakness, dysarthria, and dysphagia. Chronic kidney disease, stage 3 Coronary artery disease Diabetic peripheral neuropathy Gastroesophageal reflux disease Heart failure with preserved ejection fraction Hypertension Insulin dependent type 2 diabetes mellitus Mitral valve disease Myocardial infarction Paroxysmal atrial fibrillation Peripheral artery disease Vascular dementia Surgical History Surgical History History of cardiac catheterization History of coronary artery bypass graft x 3 (11/2001) History of coronary artery stent placement (2017) History of vascular surgery (2012) Bilateral lower extremity stents two stents. Family History Family History Mother Acute myocardial infarction Cerebrovascular accident Diabetes mellitus Hypertension Sibling Acute myocardial infarction AIDS Sibling AIDS Social History Social History Social History: Surrogate medical decision maker: Maite Rendon, spouse. Code status: Smoking status: Never smoker Second hand tobacco smoke exposure: No Alcohol intake: never Substance use: never Substance use type: does not use Lack of Transportation: No Lack of Food: Never True Current Housing: I Have Housing Concerned About Future Housing: No Difficulty Paying Gas/Electric Bills: No Difficulty Paying for Meds: No Currently Unemployed: No Education: High School Diploma/GED Difficulty w/ Childcare or Family Care: No Additional living arrangements comments: Lives with spouse. Spiritual care concerns: No Agree to blood products: Yes Meds Home Medications and Allergies Home Medications ?Medication ?Instructions ?Recorded ?Confirmed ?Type omeprazole 20 mg capsule,delayed 20 mg PO DAILY 03/04/19 03/04/25 History release paroxetine HCl 20 mg tablet 40 mg PO DAILY 03/04/19 03/04/25 History ramipril 10 mg capsule 5 mg PO DAILY 03/04/19 03/04/25 History gabapentin 100 mg capsule 100 mg PO TID #90 caps 07/10/21 03/04/25 Rx glipizide 5 mg tablet 10 mg PO BID 09/14/22 03/04/25 History omega 1-dop-qpk-fish oil 60 mg-90 1 cap PO DAILY 03/24/23 03/04/25 History mg-500 mg capsule (Fish Oil) clopidogrel 75 mg tablet 75 mg PO DAILY 07/30/23 03/04/25 History guaifenesin 600 mg tablet, 1,200 mg (2 x 600 mg) PO Q12HR #14 08/03/23 03/04/25 Rx extended release 12 hr (Mucus tabs Relief ER) atorvastatin 80 mg tablet 80 mg PO HS 30 days #30 tabs 08/04/23 03/04/25 Rx insulin lispro 100 unit/mL 1 sliding scale dose subcut 09/11/23 03/04/25 History subcutaneous pen USEASDIRECTD melatonin 3 mg tablet 10 mg PO HS 09/11/23 03/04/25 History carvedilol 25 mg tablet (Coreg) 25 mg PO BIDWM #60 tabs 09/22/23 03/04/25 Rx furosemide 20 mg tablet 20 mg PO DAILY #30 tabs 09/22/23 03/04/25 Rx albuterol sulfate 90 mcg/actuation 2 puff inhalation PRN PRN 10/07/23 03/04/25 History aerosol inhaler shortness of breath or wheezing levetiracetam 250 mg tablet 750 mg (3 x 250 mg) PO Q12HR #90 10/14/23 03/04/25 Rx tabs Allergies Allergy/AdvReac Type Severity Reaction Status Date / Time No Known Allergies Allergy Verified 03/04/25 15:20 Vital Signs Vital Signs - 24 hr 03/04/25 10:46 03/04/25 11:05 03/04/25 12:42 Temperature 98.6 F Pulse Rate 61 65 Respiratory Rate 18 18 Blood Pressure 162/71 H 159/78 H Pulse Oximetry 96 95 Oxygen Delivery Room Air Nasal Cannula Oxygen Flow Rate 3 Exam Narrative: GENERAL:Chronically ill-appearing, no acute distress. HEAD: Normocephalic, atraumatic. EYES: PERRLA. Conjunctivae clear. NOSE: Normal no drainage. THROAT: Pharynx clear, no exudate. NECK: Trachea midline. No adenopathy, no masses. RESPIRATORY: Airway patent, respirations nonlabored. Diminished bilaterally CARDIOVASCULAR: irregular rhythm GASTROINTESTINAL: Abdomen is soft and nontender. No organomegaly. Bowel sounds normal in all quadrants. GENITOURINARY: Defer MUSCULOSKELETAL: Moves all extremities. No gross deformities. SKIN: Warm, dry, normal color. missing toenail to right great toe with ecchymosis on tip of toe. Ecchymosis to surrounding toes. NEURO: A&O X4. Speech clear . PSYCHIATRIC: Normal interaction Results Labs Labs: Short CBC 03/04/25 Range/Units 11:02 WBC 13.7 H (4.5-10.0) K/mm3 Hgb 10.4 L (14.0-18.0) g/dL Hct 33.3 L (42.0-52.0) % Plt Count 236 (150-375) k/mm3 BMP 03/04/25 11:02 Sodium 132 L Potassium 4.1 Chloride 102 Carbon Dioxide 26 BUN 40 H D Creatinine 2.42 H Glucose 241 H Calcium 8.3 L Cardiac Enzymes 03/04/25 Range/Units 11:02 Troponin I 0.025 (0.000-0.034) ng/mL Liver Function 03/04/25 Range/Units 11:02 Total Bilirubin 0.8 (0.2-1.3) mg/dL AST 23 (17-59) U/L ALT 16 (6-50) U/L Alkaline Phosphatase 119 (38-126) U/L Albumin 3.2 L (3.5-5.1) g/dL Urine 03/04/25 Range/Units 11:12 Urine Color Dark yellow (Yellow) Urine Appearance Cloudy H (Clear) Urine pH 6.0 (5.0-9.0) Ur Specific [place] 1.013 (1.001-1.035) Urine Protein 3+ H (Negative) mg/dL Urine Glucose (UA) Trace H (Negative) mg/dL Quality VTE Prophylaxis VTE prophylaxis: pharmacologic ordered Assessment and Plan Assessment and plan (1) Acute UTI: Code(s): N39.0 - Urinary tract infection, site not specified Status: Acute Assessment and Plan: AMS on presentation - UA with 3+ protein, trace glucose, 2+ blood, positive nitrate, 3+ leukocyte esterase, 3-5 RBC, > 100 WBC, no bacteria seen - UC pending - previous micro reviewed - started on Ceftriaxone on 03/04 (2) Acute hypoxemic respiratory failure: Code(s): J96.01 - Acute respiratory failure with hypoxia Status: Acute Assessment and Plan: No documented episodes of hypoxemia documented during this admission. Patient does have documented history of hypoxemia in September of 2023 while admitted with pneumonia. Chest x-ray reads no [place] pulmonary edema or large effusion. Did require supplemental O2 during last admission and was required at discharge. - Updated echo ordered - V/Q scan with low probability of pulmonary emboli - Supplemental oxygen (3) FARHAN (acute kidney injury): Code(s): N17.9 - Acute kidney failure, unspecified Status: Acute Assessment and Plan: -Cr 2.42 on admission (baseline Cr: 1.5-1.6) - UA as above -s/p 1L of IVF, f/u repeat Cr 2.32 - monitor I&Os (4) Atrial flutter: Code(s): I48.92 - Unspecified atrial flutter Status: Acute Assessment and Plan: - Consider Eliquis once FARHAN improves Prior Studies I have reviewed the following patient records and this information was taken into consideration when formulating the assessment and plan.: previous labs, previous ER visits, previous hospitalizations and previous clinic visits Time Spent with Patient Time with patient: 75 minutes or greater Hospitalist MIPS Advance Care Plan I have confirmed that the patient's Advanced Care Plan is present, code status is documented, or surrogate decision maker is listed in patient medical record.: Yes Medication Reconciliation I have utilized all available resources to obtain, update and review the patients current medications (includes all prescriptions, OTC, herbals, cannabis, and nutritional supplements).: Yes
--- OUTSIDE RECORDS SUMMARY | 2025-03-04 13:09 | XMS_ITS | Clinical Summary ---
Author Organization [facility] Address [address] [place] [phone] Phone Care Team Providers Care Shipyard Painting Supervisor Name Role Phone Sharmila Lynn MD Primary Care Provider [phone] Encounters Date Type Department Care Team Description 12/09/2024 Documentation Only [place] [facility] [address] [address] Rodriguez Booth DO 12/08/2024 Documentation Only [place] [facility] [address] [address] ProviderDenise MD from Last 3 [...] patient's age to complete this topic Insurance [facility] Medicare Care Teams Shipyard Painting Supervisor Relationship Specialty Start Date End Date Sharmila Lynn MD [address] [place] [address] PCP - General Internal Medicine 12/08/24
--- OUTSIDE RECORDS SUMMARY | 2025-03-04 13:09 | XMS_ITS | Clinical Summary ---
Author Organization [facility] Address [address] [place] [id number] Phone Care Team Providers Care Correctional Treatment Specialist Name Role Phone Sebastián Doll MD Primary Care Provider [phone] Medications amLODIPine (NORVASC) 10 MG tablet 0 [...] Vaccine (#1) 2024 12/03/2017, 2017, 01/30/2012 Insurance [facility] MEDICAID Care Teams Correctional Treatment Specialist Relationship Specialty Start Date End Date Sebastián Doll MD [address] [facility] [address] [place] [address] PCP - General Internal Medicine 03/07/20
--- NOTE | 2025-03-04 14:16 | PC.NURSE ---
Patient repositioned. Patient sleepy, but will wake to verbal stimuli.
--- NOTE | 2025-03-04 14:35 | WPCEDHO ---
ED Hand Off Checklist All vitals saved:yes IV Site documented:yes All med administrations documented:yes Triage Note Triage Note Pt to ED from home via EMS co AMS 03/04/25 10:46 . at bedside states pt has hx multiple strokes, CHF, HTN, & AR, states pt is bedridden. States pt has not been acting like himself for roughly one week . Pt A&Ox4 on arrival. states pt has had congestion and that he had low urine output yesterday. Allergies No Known Allergies Allergy (Verified 03/04/25 10:55) Family History (Last Reviewed 01/15/24 @ 11:22 by Kati Gonzales) Mother Acute myocardial infarction Cerebrovascular accident Diabetes mellitus Hypertension Sibling Acute myocardial infarction AIDS Sibling AIDS Administered/Completed Medications Discontinued Medications Albuterol/Ipratropium (Ipratropium 0.5 Mg/Albuterol Sulfate 2.5 Mg (Base) Ampul.Neb 3 Ml) 3 ml INHALATION ONCE STA Stop: 03/04/25 10:56 Last Admin: 03/04/25 11:41 Dose: 3 ml Documented By: VANGIE Ceftriaxone Sodium 1 gm/ (Sodium Chloride) 50 mls @ 100 mls/hr IVPB ONCE STA Stop: 03/04/25 13:00 Last Infusion: 03/04/25 13:13 Dose: Infused Documented By: Admin: 03/04/25 12:37 Dose: 100 mls/hr Documented By: KATY Sodium Chloride (Normal Saline Iv) 1,000 mls @ 999 mls/hr IV CONT .Q1H1M STA Stop: 03/04/25 13:32 Last Infusion: 03/04/25 14:14 Dose: Infused Documented By: [facility] Admin: 03/04/25 12:37 Dose: 999 mls/hr Documented By: KATY Notes 03/04/25 14:16 Nurse Note by Kathryn Tomas Patient repositioned. Patient sleepy, but will wake to verbal stimuli. Initialized on 03/04/25 14:16 - END OF NOTE 03/04/25 11:07 Respiratory Therapy Note by Rosa Avina DELAYED DUE TO NURSES IN THE ROOM Initialized on 03/04/25 11:07 - END OF NOTE Interventions/Assessments IV / Saline Lock, Insert Start: 03/04/25 10:43 Freq: Status: Active Protocol: Document 03/04/25 10:55 [facility] (Rec: 03/04/25 10:56 [facility] [id number]) IV Assessment Peripheral Access Right Forearm IV Catheter Access Initiated IV Insertion Date 03/04/25 IV Insertion Time 10:56 Catheter Gauge 18 IV Insertion 1 Attempts Ultrasound Used for No Placement IV Site Assessment WNL IV Care and WNL Maintenance PA: Cardiovascular Assessment Start: 03/04/25 10:43 Freq: Status: Active Protocol: Document 03/04/25 11:05 [facility] (Rec: 03/04/25 11:06 [facility] [id number]) Cardiovascular Assessment Cardiovascular None Symptoms Skin Description Normal Color Heart Sounds Normal Jugular Vein None Distention PA: Neurological Assessment Start: 03/04/25 10:43 Freq: Status: Active Protocol: Document 03/04/25 11:05 [facility] (Rec: 03/04/25 11:06 [facility] [id number]) Neurological Assessment Level of Alert,Awake Consciousness Arousable to Verbal Orientation Oriented to Person,Oriented to Place,Oriented to Time Neurological Weakness, General Symptoms Hallucination Type None Unable to Redirect No Behavior Behavior Appropriate,Cooperative Patient Unable to Comprehend Comprehension Memory Description Unable to Assess Ability to Maintain Unable to Assess Balance Facial Symmetry Symmetrical Speech Pattern Clear Ability to Swallow Normal Tongue Position Midline PA: Respiratory Assessment Start: 03/04/25 10:43 Freq: Status: Active Protocol: Document 03/04/25 11:05 [facility] (Rec: 03/04/25 11:06 [facility] [id number]) Respiratory Assessment Symptoms Cough Effort Normal Pattern Regular Depth Normal Chest Expansion Symmetrical Adult Capillary Normal/Less than 2 Seconds Refill Bilateral Throughout Phase Inspiratory & Expiratory Lung Sounds Diminished,Wheezes Last Vital Signs Temperature 98.2 F 03/04/25 14:33 Pulse Rate 63 03/04/25 14:33 Respiratory Rate 18 03/04/25 14:33 Pulse Oximetry 97 03/04/25 14:33 Blood Pressure 185/79 H 03/04/25 14:33 Blood Pressure Mean 114 03/04/25 14:33 Oxygen Delivery Nasal Cannula 03/04/25 11:05 Oxygen Flow Rate 3 03/04/25 11:05 Weight 77.1 kg 03/04/25 10:46 Last Result - Abnormals Only WBC 13.7 K/mm3 (4.5-10.0) H 03/04/25 11:02 RBC 3.77 M/mm3 (4.6-6.20) L 03/04/25 11:02 Hgb 10.4 g/dL (14.0-18.0) L 03/04/25 11:02 Hct 33.3 % (42.0-52.0) L 03/04/25 11:02 MCHC 31.2 g/dl (32-36) L 03/04/25 11:02 MPV 11.3 fl (7.4-10.4) H 03/04/25 11:02 Immature Gran % (Auto) 0.7 % (0-0.5) H 03/04/25 11:02 Neut % (Auto) 80.4 % (45.5-73.1) H 03/04/25 11:02 Lymph % (Auto) 11.0 % (18.3-44.2) L 03/04/25 11:02 [place] # (Auto) 0.8 K/mm3 (0.1-0.6) H 03/04/25 11:02 Abs Immat Gran (auto) 0.09 K/mm3 (0.00-0.031) H 03/04/25 11:02 Absolute Neuts (auto) 11.1 K/mm3 (1.3-6.7) H 03/04/25 11:02 D-Dimer 1.25 ug/mL (<0.48) H 03/04/25 11:03 ABG pO2 57.1 mmHg (80.0-100.0) L 03/04/25 11:50 ABG HCO3 21.6 mEq/l (22.0-26.0) L 03/04/25 11:50 ABG O2 Saturation 88.7 % (95.0-100.0) L 03/04/25 11:50 ABG O2 Content 13.0 %vol (16.0-22.0) L 03/04/25 11:50 Oxyhemoglobin 87.0 % THb (90.0-100.0) L* 03/04/25 11:50 Total Hemoglobin 10.6 g/dL (12.0-18.0) L 03/04/25 11:50 Sodium 132 mmol/L (137-145) L 03/04/25 11:02 BUN 40 mg/dL (9-20) H D 03/04/25 11:02 Creatinine 2.42 mg/dL (0.7-1.3) H 03/04/25 11:02 Estimated GFR 27 (59-) L 03/04/25 11:02 Glucose 241 mg/dL (65-110) H 03/04/25 11:02 POC Capillary Glucose 215 mg/dl (65-105) H 03/04/25 13:22 Calcium 8.3 mg/dL (8.4-10.2) L 03/04/25 11:02 Ammonia < 9 umol/L (9-30) L 03/04/25 11:02 Albumin 3.2 g/dL (3.5-5.1) L 03/04/25 11:02 Urine Appearance Cloudy (Clear) H 03/04/25 11:12 Urine Protein 3+ mg/dL (Negative) H 03/04/25 11:12 Urine Glucose (UA) Trace mg/dL (Negative) H 03/04/25 11:12 Ur Blood (Man) 2+ (Negative) H 03/04/25 11:12 Urine Nitrate Positive (Negative) H 03/04/25 11:12 Leukocyte Esterase Rfl 3+ JAMIR/UL (Negative) H 03/04/25 11:12 Urine RBC 3-5 /hpf (0-2) H 03/04/25 11:12 Urine WBC >100 /hpf (0-3) H 03/04/25 11:12 Most Recent Suicide Severity Rating Suicide Severity Rating NO RISK INDICATED 03/04/25 10:46
--- NOTE | 2025-03-04 14:41 | ED.AMS ---
HPI - Altered Mental Status General Chief Complaint: Altered Mental Status Stated Complaint: ams Time Seen by Provider: 03/04/25 10:48 History of Present Illness HPI narrative: Patient presents with new AMS per has been more confused over last 1-2 weeks, less energetic, and decreased urine output. Patient tells me that he feels terrible, only pain he is reporting is to the back of his head. Related Data Home Medications ?Medication ?Instructions ?Recorded ?Confirmed ?Last Taken ?Type omeprazole 20 mg capsule,delayed 20 mg PO DAILY 03/04/19 01/15/24 09/10/23 08:00 History release paroxetine HCl 20 mg tablet 40 mg PO DAILY 03/04/19 01/15/24 09/10/23 08:00 History ramipril 10 mg capsule 10 mg PO DAILY 03/04/19 01/15/24 09/11/23 08:00 History glipizide 5 mg tablet 10 mg PO BID 09/14/22 01/15/24 09/08/23 History omega [id number]-fish oil 60 mg-90 1 cap PO DAILY 03/24/23 01/15/24 09/10/23 08:00 History mg-500 mg capsule (Fish Oil) aspirin 325 mg capsule 325 mg PO DAILY 07/30/23 01/15/24 09/10/23 08:00 History clopidogrel 75 mg tablet 75 mg PO DAILY 07/30/23 01/15/24 09/08/23 History insulin lispro 100 unit/mL 1 sliding scale dose subcut 09/11/23 01/15/24 Unknown History subcutaneous pen USEASDIRECTD melatonin 3 mg tablet 10 mg PO HS 09/11/23 01/15/24 09/10/23 21:00 History albuterol sulfate 90 mcg/actuation 2 puff inhalation PRN PRN 10/07/23 01/15/24 Unknown History aerosol inhaler shortness of breath or wheezing Allergies Allergy/AdvReac Type Severity Reaction Status Date / Time No Known Allergies Allergy Verified 03/04/25 10:55 Review of Systems Review of Systems: All systems reviewed & are unremarkable except as noted in HPI and below PMFSH Past Medical History Medical History Acute respiratory failure Anemia Bipolar disease, chronic Cerebrovascular accident Multiple strokes with residual left-sided weakness, dysarthria, and dysphagia. Chronic kidney disease, stage 3 Coronary artery disease Diabetic peripheral neuropathy Gastroesophageal reflux disease Heart failure with preserved ejection fraction Hypertension Insulin dependent type 2 diabetes mellitus Mitral valve disease Myocardial infarction Paroxysmal atrial fibrillation Peripheral artery disease Vascular dementia Surgical History Surgical History History of cardiac catheterization History of coronary artery bypass graft x 3 (11/2001) History of coronary artery stent placement (2017) History of vascular surgery (2012) Bilateral lower extremity stents two stents. Family History Family History Mother Acute myocardial infarction Cerebrovascular accident Diabetes mellitus Hypertension Sibling Acute myocardial infarction AIDS Sibling AIDS Social History Social History Social History: Surrogate medical decision maker: Maite Rendon, spouse. Code status: Smoking status: Never smoker Second hand tobacco smoke exposure: No Alcohol intake: former Substance use: never Substance use type: does not use Lack of Transportation: No Lack of Food: Never True Current Housing: I Do Not Have Housing Concerned About Future Housing: No Difficulty Paying Gas/Electric Bills: No Difficulty Paying for Meds: No Currently Unemployed: No Education: High School Diploma/GED Difficulty w/ Childcare or Family Care: No Additional living arrangements comments: Lives with spouse. Spiritual care concerns: No Agree to blood products: Yes Exam Narrative: EXAMINATION OF ORGAN SYSTEMS/BODY AREAS: Constitutional: Vital signs per nursing GENERAL: Eyes closed but opens them and answers questions HEAD: Normal with no signs of head trauma. EYES: EOMI, conjunctiva normal ENT: Hearing grossly intact LUNGS: Nonlabored breathing. HEART: Irregularly irregular ABD: Soft, nontender to palpation EXT: Normal range of motion SKIN: No rashes or lesions. NEURO: Alert. No gross focal sensory or strength deficits. PSYCH: Normal affect Course Vital Signs Vital signs: Vital Signs Temperature 98.6 F 03/04/25 10:46 Pulse Rate 61 03/04/25 10:46 Respiratory Rate 18 03/04/25 10:46 Blood Pressure 162/71 H 03/04/25 10:46 Oxygen Delivery Room Air 03/04/25 10:46 Temperature 98.2 F 03/04/25 14:33 Pulse Rate 63 03/04/25 14:33 Respiratory Rate 18 03/04/25 14:33 Blood Pressure 185/79 H 03/04/25 14:33 Pulse Oximetry 97 03/04/25 14:33 Oxygen Delivery Nasal Cannula 03/04/25 11:05 Oxygen Flow Rate 3 03/04/25 11:05 MDM MDM Narrative Medical decision making narrative: Patient presents with new AMS per has been more confused over last 1-2 weeks, less energetic, and decreased urine output. Patient tells me that he feels terrible, only pain he is reporting is to the back of his head. On exam NIH stroke scale is 0, he does appear tired, heart rate irregular, he is hypoxic requiring oxygen EKG - 12-Lead: Performed at 1100. Interpreted by me. Atrial flutter with right bundle branch block. Rate 62. Normal axis. HI-interval 197. QRS duration 166. QTc 482. No ST segment elevation or depression. T-wave normal. Impression: No EKG evidence of acute ischemia or dysrhythmia. Labs concerning for elevated white count, ABG with low O2, creatinine 2.4 with FARHAN I expect from dehydration so fluids given. Does appear to have a UTI so antibiotics started. I do not see history of atrial flutter in the past, so I did obtain D-dimer which is elevated, will order NM V/Q scan to rule out PE. Discussed with hospitalist for admission. Differential Diagnosis Differential Diagnosis: CVA, infxn, dehydration, delirium, etc Lab Data 03/04/25 11:02 03/04/25 11:02 Labs: Lab Results 03/04/25 03/04/25 03/04/25 Range/Units 10:55 11:02 11:03 WBC 13.7 H (4.5-10.0) K/mm3 RBC 3.77 L (4.6-6.20) M/mm3 Hgb 10.4 L (14.0-18.0) g/dL Hct 33.3 L (42.0-52.0) % MCV 88.3 (80-100) fl MCH 27.6 (26-34) pg MCHC 31.2 L (32-36) g/dl RDW 13.1 (11.5-14.5) % Plt Count 236 (150-375) k/mm3 MPV 11.3 H (7.4-10.4) fl Immature Gran % (Auto) 0.7 H (0-0.5) % Neut % (Auto) 80.4 H (45.5-73.1) % Lymph % (Auto) 11.0 L (18.3-44.2) % [place] % (Auto) 5.7 (2.6-8.5) % Eos % (Auto) 1.5 (0-4.4) % Baso % (Auto) 0.7 (0.2-1.2) % Lymph # (Auto) 1.51 (0.9-3.2) K/mm3 [place] # (Auto) 0.8 H (0.1-0.6) K/mm3 Eos # (Auto) 0.2 (0-0.3) K/mm3 Baso # (Auto) 0.1 (0.0-0.1) K/mm3 Abs Immat Gran (auto) 0.09 H (0.00-0.031) K/mm3 Absolute Neuts (auto) 11.1 H (1.3-6.7) K/mm3 Absolute Nucleated RBC 0.000 (0.0-0.012) K/mm3 Nucleated RBC % 0.0 (0.0-0.2) % D-Dimer 1.25 H (<0.48) ug/mL Sodium 132 L (137-145) mmol/L Potassium 4.1 (3.4-5.0) mmol/L Chloride 102 (98-107) mmol/L Carbon Dioxide 26 (22-30) mmol/L Anion Gap 4 (4-12) mmol/L BUN 40 H D (9-20) mg/dL Creatinine 2.42 H (0.7-1.3) mg/dL Estim Creat Clear Calc 26 ml/min Estimated GFR 27 L (59 - ) Glucose 241 H (65-110) mg/dL POC Capillary Glucose 228 H (65-105) mg/dl Lactic Acid 0.9 (0.7-2.0) mmol/L Calcium 8.3 L (8.4-10.2) mg/dL Total Bilirubin 0.8 (0.2-1.3) mg/dL AST 23 (17-59) U/L ALT 16 (6-50) U/L Alkaline Phosphatase 119 (38-126) U/L Ammonia < 9 L (9-30) umol/L Troponin I 0.025 (0.000-0.034) ng/mL Total Protein 7.3 (6.3-8.2) g/dL Albumin 3.2 L (3.5-5.1) g/dL TSH 1.850 (0.465-4.680) uIU/mL Urine Color (Yellow) Urine Appearance (Clear) Urine pH (5.0-9.0) Ur Specific [employer] [place] (1.001-1.035) Urine Protein (Negative) mg/dL Urine Glucose (UA) (Negative) mg/dL Urine Ketones (Negative) mg/dL Ur Blood (Man) (Negative) Urine Nitrate (Negative) Urine Bilirubin (Negative) Urine Urobilinogen (<2.0) mg/dL Add Ur Microanalysis Leukocyte Esterase Rfl (Negative) JAMIR/UL Urine RBC (0-2) /hpf Urine WBC (0-3) /hpf Ur Squamous Epith Cells (Few) /hpf Urine Bacteria /hpf Urine Casts Ethyl Alcohol < 10 (<10) mg/dL Influenza A (RT-PCR) (Negative) Influenza B (RT-PCR) (Negative) RSV (RT-PCR) (Negative) SARS-CoV-2 RNA (RT-PCR) (Negative) 03/04/25 03/04/25 Range/Units 11:12 12:16 WBC (4.5-10.0) K/mm3 RBC (4.6-6.20) M/mm3 Hgb (14.0-18.0) g/dL Hct (42.0-52.0) % MCV (80-100) fl MCH (26-34) pg MCHC (32-36) g/dl RDW (11.5-14.5) % Plt Count (150-375) k/mm3 MPV (7.4-10.4) fl Immature Gran % (Auto) (0-0.5) % Neut % (Auto) (45.5-73.1) % Lymph % (Auto) (18.3-44.2) % [place] % (Auto) (2.6-8.5) % Eos % (Auto) (0-4.4) % Baso % (Auto) (0.2-1.2) % Lymph # (Auto) (0.9-3.2) K/mm3 [place] # (Auto) (0.1-0.6) K/mm3 Eos # (Auto) (0-0.3) K/mm3 Baso # (Auto) (0.0-0.1) K/mm3 Abs Immat Gran (auto) (0.00-0.031) K/mm3 Absolute Neuts (auto) (1.3-6.7) K/mm3 Absolute Nucleated RBC (0.0-0.012) K/mm3 Nucleated RBC % (0.0-0.2) % D-Dimer (<0.48) ug/mL Sodium (137-145) mmol/L Potassium (3.4-5.0) mmol/L Chloride (98-107) mmol/L Carbon Dioxide (22-30) mmol/L Anion Gap (4-12) mmol/L BUN (9-20) mg/dL Creatinine (0.7-1.3) mg/dL Estim Creat Clear Calc ml/min Estimated GFR (59 - ) Glucose (65-110) mg/dL POC Capillary Glucose (65-105) mg/dl Lactic Acid (0.7-2.0) mmol/L Calcium (8.4-10.2) mg/dL Total Bilirubin (0.2-1.3) mg/dL AST (17-59) U/L ALT (6-50) U/L Alkaline Phosphatase (38-126) U/L Ammonia (9-30) umol/L Troponin I (0.000-0.034) ng/mL Total Protein (6.3-8.2) g/dL Albumin (3.5-5.1) g/dL TSH (0.465-4.680) uIU/mL Urine Color Dark yellow (Yellow) Urine Appearance Cloudy H (Clear) Urine pH 6.0 (5.0-9.0) Ur Specific [employer] [place] 1.013 (1.001-1.035) Urine Protein 3+ H (Negative) mg/dL Urine Glucose (UA) Trace H (Negative) mg/dL Urine Ketones Negative (Negative) mg/dL Ur Blood (Man) 2+ H (Negative) Urine Nitrate Positive H (Negative) Urine Bilirubin Negative (Negative) Urine Urobilinogen 1.0 (<2.0) mg/dL Add Ur Microanalysis Reviewed Leukocyte Esterase Rfl 3+ H (Negative) JAMIR/UL Urine RBC 3-5 H (0-2) /hpf Urine WBC >100 H (0-3) /hpf Ur Squamous Epith Cells None seen (Few) /hpf Urine Bacteria None seen /hpf Urine Casts 3-5 Ethyl Alcohol (<10) mg/dL Influenza A (RT-PCR) Negative (Negative) Influenza B (RT-PCR) Negative (Negative) RSV (RT-PCR) Negative (Negative) SARS-CoV-2 RNA (RT-PCR) Negative (Negative) ABG Data ABG results: 03/04/25 11:50 Puncture Site Right radial ABG pH 7.357 ABG pCO2 39.4 ABG pO2 57.1 L ABG PO2/FiO2 Ratio 2.04 ABG HCO3 21.6 L ABG O2 Saturation 88.7 L ABG O2 Content 13.0 L ABG Base Excess -3.6 A-a Gradient 146.7 Oxyhemoglobin 87.0 L* Total Hemoglobin 10.6 L O2 Delivery Device Nasal cannula O2 Liters/Min 3.0 FiO2 28 Imaging Data Radiologist's impression: ITS Impressions Chest X-Ray 03/04/25 11:37 IMPRESSION: 1. Enlarged heart shadow with vascular congestion; no [place] pulmonary edema or large effusion. Head CT 03/04/25 11:38 IMPRESSION: 1. No gross intracranial mass effect or hemorrhage. 2. Old right-sided lacunar infarctions and chronic white vessel ischemic appearing changes. Critical Care Time Critical Care Time Critical Care Time: Yes Indication: acute hypoxic resp failure; AMS Initial evaluation, discuss w/ involved parties, attempting to gather old records: 10 minutes Documenting medical record: 5 minutes Review of results (EKG's, labs, imaging): 5 minutes Serial repeat bedside evaluation: 10 minutes Discussing case with multiple memebers of the care team and consultants: 5 minutes Total Critical Care Time: 35 Discharge Plan Discharge Clinical Impression: Acute UTI, Acute alteration in mental status, Acute hypoxemic respiratory failure, FARHAN (acute kidney injury) Patient Disposition: Still a Patient Condition: Stable
--- NOTE | 2025-03-04 15:11 | WNDPHOTO ---
PHOTO ONLY - See Nursing Notes and/ or assessments for documentation.
--- NOTE | 2025-03-04 15:13 | WNDPHOTO ---
PHOTO ONLY - See Nursing Notes and/ or assessments for documentation.
--- NOTE | 2025-03-04 15:17 | ADMGEN ---
This patient, Robert Rendon, was admitted to 2 Medical Room 241-. Patient/family oriented to hospital policies and general routines including ID bracelet, bed and alarms, visiting hours, pain management, procedures, bathroom and other care routines, personal items, smoking policy, room service/diet, and visiting hours. Information on how to activate the Rapid Response Team has been discussed. Patient/Family are encouraged to report perceived risks to care and to ask questions if they do not understand what they are told or what they should do.
--- NOTE | 2025-03-04 17:53 | PC.NURSE ---
Estephania Ho FISHER MUSSEL notified of bp 168/58 and tele showing a flutter.
[2025-03-04 20:56] LABS: Anion Gap 7 mmol/L (4-12); Blood Urea Nitrogen 39 mg/dL (9-20); Calcium 8.1 mg/dL (8.4-10.2); Carbon Dioxide 22 mmol/L (22-30); Chloride 106 mmol/L (98-107); Estimated CRCL calculation 27 ml/min; Estimated Glomerular Filt Rate 29; Glucose 234 mg/dL (65-110); Potassium 3.8 mmol/L (3.4-5.0); Sodium 135 mmol/L (137-145)
[2025-03-04] MEDS: GABAPENTIN 100 MG CAPSULE PO (21:21)
[2025-03-04] MEDS: ATORVASTATIN 40 MG TABLET 80 MG PO (21:21)
[2025-03-04] MEDS: MELATONIN 5 MG TABLET 10 MG PO (21:22)
[2025-03-04] MEDS: ENOXAPARIN 40 MG/0.4 ML SYRINGE SUB-Q (21:22)
[2025-03-04] MEDS: guaiFENesin 12 HR 600 MG TABCR 1200 MG PO (21:22)
[2025-03-05] VITALS (13 sets, daily range): BP systolic 120–181; BP diastolic 55–66; PULSE 56–65; RESP 16–20; TEMP 36.3–36.4; O2SAT 98–99; BMI 27.8
--- NOTE | 2025-03-05 | ECHO_ITS ---
Patient Info Name: Robert Rendon Age: 64 years : 1960 Gender: Male Ht: 66 in Wt: 172 lbs BSA: 1.92 m2 HR: 62 bpm BP: 153 / 66 mmHg Technical Quality: Poor Exam Date: 03/05/2025 9:47 AM Patient Status: I Admit Date: 03/04/2025 Exam Type: CA echo dop color flow w con Complete two-dimensional, color flow and Doppler transthoracic echocardiogram is performed with contrast to opacify the left ventricle and to improve the deliniation of the left ventricle endocardial borders. Staff Referring Physician: Ignacia Gomez Stock Preparation Operator: Andres Weaver III Attending Provider: Cuong Brown Contrast/Agitated Saline Contrast/Ag. Saline: Definity Amount: 2.00 ml Administered By: Andres Weaver III Existing IV Access: Yes IV Access Condition: patent with no signs of infiltration Reason for Poor Study: poor echocardiographic windows Summary 1. Definity contrast administered improved wall motion interpretation. 2. Left ventricular chamber dimension is normal. 3. Left ventricular systolic function is normal, estimated at 60-65. 4. There is mild concentric increased left ventricular wall thickness. 5. The left ventricular diastolic function is grade III diastolic dysfunction. 6. E/e' 21 is elevated. 7. Left atrial chamber dimension is mildly enlarged. 8. There is mild aortic valve sclerosis. 9. The mitral valve has a severely calcified annulus. 10. There is mild mitral valve regurgitation. 11. There is mild tricuspid valve regurgitation. 12. No pulmonary hypertension, estimated pulmonary arterial systolic pressure is 24 mmHg. Left Ventricle E/e' 21 is elevated. Left ventricular chamber dimension is normal. Left ventricular systolic function is normal, estimated at 60-65. There is mild concentric increased left ventricular wall thickness. The left ventricular diastolic function is grade III diastolic dysfunction. Definity contrast administered improved wall motion interpretation. Right Ventricle Right ventricular chamber dimension is normal. Right ventricular systolic function is normal. Left Atria Left atrial chamber dimension is mildly enlarged. Right Atria Right atrial chamber dimension is normal. Aortic Valve The aortic valve is trileaflet. There is mild aortic valve sclerosis. There is no aortic valve stenosis. There is no aortic valve regurgitation. Pulmonic Valve There is no pulmonic regurgitation. Mitral Valve The mitral valve has a severely calcified annulus. There is no mitral valve stenosis. There is mild mitral valve regurgitation. Tricuspid Valve There is mild tricuspid valve regurgitation. No pulmonary hypertension, estimated pulmonary arterial systolic pressure is 24 mmHg. Pericardium/Pleural There is no pericardial effusion. Inferior Vena Cava Normal inferior vena cava with >50% collapse upon inspiration consistent with normal right atrial pressure, 5 mmHg. Aorta The aortic root size at the sinus of Valsalva is normal. Left Ventricular Outflow Tract Name Value Normal LVOT 2D LVOT Diameter 2.1 cm LVOT Doppler LVOT Peak Velocity 102 cm/s LVOT Peak Gradient 4 mmHg LVOT Mean Gradient 2 mmHg LVOT VTI 25 cm LVOT VTI/AV VTI Ratio 0.8 LVOT Stroke Volume 85 ml LVOT CO 4.2 l/min LVOT CI 2.2 l/min/m2 Pulmonic Valve Name Value Normal PV Doppler PV Peak Velocity 98 cm/s PV Peak Gradient 4 mmHg PV Mean Gradient 2 mmHg PV Regurgitation Doppler ID Peak End Diastolic Velocity 118 cm/s Mitral Valve Name Value Normal MV Doppler MV Peak Gradient 9 mmHg MV Mean Gradient 3 mmHg MV Area (Cont Eq VTI) 2.5 cm2 MV Diastolic Function MV E Peak Velocity 133 cm/s MV A Peak Velocity 63 cm/s MV E/A 2.1 MV Decel Time (PW) 212 ms MV Annular TDI MV E/e' (Septal) 30.6 MV E/e' (Lateral) 16.9 MV E/e' (Average) 23.8 Tricuspid Valve Name Value Normal TV Regurgitation Doppler TR Peak Velocity 216 cm/s TR Peak Gradient 19 mmHg Estimated PAP/RSVP RA Pressure 5 mmHg <=5 PA Systolic Pressure 24 mmHg <36 RV Systolic Pressure 24 mmHg <36 Aortic Valve Name Value Normal AV Doppler AV Peak Velocity 151 cm/s AV Peak Gradient 9 mmHg AV Mean Gradient 4 mmHg AV VTI 32 cm AV Area (Cont Eq VTI) 2.7 cm2 >=3.0 AV Area (Cont Eq Nav) 2.3 cm2 AV DI (Nav) 0.67 AV Regurgitation 2D LVOT Area 3.4 cm2 Ventricles Name Value Normal LV Dimensions 2D/MM IVS Diastolic Thickness (2D) 1.5 cm 0.6-1.0 LVID Diastole (2D) 5.3 cm 4.2-5.8 LVIW Diastolic Thickness (2D) 1.3 cm 0.6-1.0 LVID Systole (2D) 3.8 cm 2.5-4.0 LVOT Diameter 2.1 cm LV Mass (2D Cubed) 322.45 g 88.00-224.00 LV Mass Index (2D Cubed) 168 g/m2 49-115 Relative Wall Thickness (2D) 0.50 <=0.42 LV Fractional Shortening/Ejection Fraction 2D/MM LV Fractional Shortening (2D) 33 % 25-43 LV EF (2D Teichholz) 53 % LV Diastolic Volume (4C MOD) 104 ml LV EF (4C MOD) 69 % LV Diastolic Volume (2C MOD) 90 ml LV EF (2C MOD) 55 % LV Diastolic Volume (BP MOD) 96 ml 62-150 LV Diastolic Volume Index (BP MOD) 50 ml/m2 34-74 LV Systolic Volume (BP MOD) 37 ml 21-61 LV Systolic Volume Index (BP MOD) 19 ml/m2 11-31 LV EF (BP MOD) 61 % 52-72 LV Diastolic Length (4C) 7.2 cm LV Systolic Length (4C) 6.5 cm LV Stroke Volume (4C MOD) 71 ml Atria Name Value Normal LA Dimensions LA Volume (4C A-L) 70 ml LA Volume (BP A-L) 73 ml Report Signatures
[2025-03-05 05:41] LABS: Hematocrit 30.4 % (42.0-52.0); Hemoglobin 9.3 g/dL (14.0-18.0); Immature Granulocyte Percent A 0.8 % (0-0.5); Lymphocytes Absolute Auto 1.52 K/mm3 (0.9-3.2); Mean Corpuscular HGB Conc 30.6 g/dl (32-36); Mean Corpuscular Hemoglobin 27.5 pg (26-34); Mean Corpuscular Volume 89.9 fl (80-100); Nucleated Red Blood Cells Absolute Auto 0.000 K/mm3 (0.0-0.012); Nucleated Red Blood Cells Perc 0.0 % (0.0-0.2); Platelet Count Result 191 k/mm3 (150-375); Red Blood Count 3.38 M/mm3 (4.6-6.20); White Blood Count 8.6 K/mm3 (4.5-10.0)
[2025-03-05 05:59] LABS: Anion Gap 4 mmol/L (4-12); Blood Urea Nitrogen 40 mg/dL (9-20); Calcium 8.0 mg/dL (8.4-10.2); Carbon Dioxide 22 mmol/L (22-30); Chloride 108 mmol/L (98-107); Estimated CRCL calculation 27 ml/min; Estimated Glomerular Filt Rate 28; Glucose 199 mg/dL (65-110); Potassium 3.6 mmol/L (3.4-5.0); Sodium 134 mmol/L (137-145)
--- NOTE | 2025-03-05 07:37 | PM.IMPN2 ---
Assessment and Plan Assessment and Plan (1) Acute UTI: Code(s): N39.0 - Urinary tract infection, site not specified Status: Acute Assessment and Plan: AMS on presentation to ED UA with 3+ protein, trace glucose, 2+ blood, positive nitrate, 3+ leukocyte esterase, 3-5 RBC, > 100 WBC, no bacteria seen UC pending previous micro reviewed started on Ceftriaxone on 03/04 03/05: A&O x3, urine/blood culture still pending, no leukocytosis (2) Acute hypoxemic respiratory failure: Code(s): J96.01 - Acute respiratory failure with hypoxia Status: Acute Assessment and Plan: No documented episodes of hypoxemia documented during this admission. Patient does have documented history of hypoxemia in September of 2023 while admitted with pneumonia. Chest x-ray: no [place] pulmonary edema or large effusion. Did require supplemental O2 during last admission and was required at discharge. Echo EF 60-65%, mild concentric increased left ventricular wall thickness, grade 3 diastolic dysfunction, E/e' 21 elevated, mildly enlarged LA chamber, mild AVS, mild MVR/TVR, severely calcified mitral valve annulus V/Q scan with low probability of pulmonary emboli Supplemental O2 (3) FARHAN (acute kidney injury): Code(s): N17.9 - Acute kidney failure, unspecified Status: Acute Assessment and Plan: Cr 2.42 on admission (baseline Cr: 1.5-1.6) UA as above s/p 1L of IVF, f/u repeat Cr 2.32 monitor I&Os 03/05: Cr 2.34 Continue IV fluids (4) Atrial flutter: Code(s): I48.92 - Unspecified atrial flutter Status: Acute Assessment and Plan: Consider Eliquis once FARHAN improves Subjective Date/time seen: 03/05/25 07:37 Interval history: 64-year-old male with a past medical history of GERD, CKD, HFpEF, DM 2, multiple CVAs, afib, CAD s/p CABG x 3, vascular dementia, PAD presents to the ED on 03/04/2025 with altered mental status per his . 03/05/2025 Patient sitting comfortably in bed at time of examination. States that he feels much better today. A&O x3. Denies any chest pain, shortness of breath, nausea/vomiting or abdominal pain. Remains afebrile without leukocytosis. Creatinine still elevated, baseline creatinine appears to be around 1.5, 2.34 today. We will continue IV fluids, otherwise no major electrolyte abnormalities. Blood and urine culture still pending. Review of Systems Review of Systems: All systems reviewed & are unremarkable except as noted in HPI and below Exam Narrative: GENERAL:Chronically ill-appearing, no acute distress. HEAD: Normocephalic, atraumatic. EYES: PERRLA. Conjunctivae clear. NOSE: Normal no drainage. THROAT: Pharynx clear, no exudate. NECK: Trachea midline. No adenopathy, no masses. RESPIRATORY: Airway patent, respirations nonlabored. Diminished bilaterally CARDIOVASCULAR: irregular rhythm GASTROINTESTINAL: Abdomen is soft and nontender. No organomegaly. Bowel sounds normal in all quadrants. GENITOURINARY: Defer MUSCULOSKELETAL: Moves all extremities. No gross deformities. SKIN: Warm, dry, normal color. missing toenail to right great toe with ecchymosis on tip of toe. Ecchymosis to surrounding toes. NEURO: A&O X4. Speech clear . PSYCHIATRIC: Normal interaction Objective Data Vital Signs Vital Signs: Vital Signs - 24 hr 03/04/25 10:46 03/04/25 11:05 03/04/25 12:42 Temperature 98.6 F Pulse Rate 61 65 Respiratory Rate 18 18 Blood Pressure 162/71 H 159/78 H Pulse Oximetry 96 95 Oxygen Delivery Room Air Nasal Cannula Oxygen Flow Rate 3 03/04/25 14:33 03/04/25 15:18 03/04/25 15:27 Temperature 98.2 F 97.2 F L Pulse Rate 63 86 Respiratory Rate 18 18 Blood Pressure 185/79 H 169/82 H Pulse Oximetry 97 100 100 Oxygen Delivery Nasal Cannula Oxygen Flow Rate 3 03/04/25 16:00 03/04/25 17:50 03/04/25 18:04 Temperature Pulse Rate 57 L 63 Respiratory Rate Blood Pressure 168/58 H Pulse Oximetry Oxygen Delivery Oxygen Flow Rate 03/04/25 20:00 03/04/25 20:00 03/04/25 21:13 Temperature 98.1 F Pulse Rate 62 60 Respiratory Rate 16 Blood Pressure 167/62 H Pulse Oximetry 98 98 Oxygen Delivery Nasal Cannula Oxygen Flow Rate 3 03/05/25 00:00 03/05/25 04:00 03/05/25 04:57 Temperature 97.5 F L Pulse Rate 65 56 L 62 Respiratory Rate 16 Blood Pressure 153/66 H Pulse Oximetry 99 Oxygen Delivery Oxygen Flow Rate Intake/Output Intake/Output: Intake & Output 03/02/25 03/03/25 03/04/25 03/05/25 23:59 23:59 23:59 23:59 Intake Total 1270 200 Balance 1270 200 Meds/Results Medications: Active Medications Generic Name Dose Route Start Last Admin Trade Name Freq PRN Reason Stop Dose Admin Atorvastatin Calcium 80 mg 03/04/25 21:00 03/04/25 21:21 Atorvastatin 40 Mg Tablet PO 80 mg HS GEOFFREY Administration Carvedilol 25 mg 03/04/25 17:55 03/04/25 18:04 Carvedilol 25 Mg Tablet PO 25 mg Q12HR GEOFFREY Administration Clopidogrel Bisulfate 75 mg 03/05/25 09:00 Clopidogrel Bisulfate 75 Mg Tablet PO DAILY GEOFFREY Dextrose 12.5 gm 03/04/25 12:54 Dextrose 50% 25 Gm/50 Ml Syringe IV PUSH PRN PRN Hypoglycemia Protocol Enoxaparin Sodium 40 mg 03/04/25 21:00 03/04/25 21:22 Enoxaparin 40 Mg/0.4 Ml Syringe SUB-Q 40 mg HS GEOFFREY Administration Fish Oil 1 gm 03/05/25 09:00 [place] 3 Polyunsat Fatty Acids 1 Gm Cap PO DAILY GEOFFREY Furosemide 20 mg 03/05/25 09:00 Furosemide 20 Mg Tablet PO DAILY GEOFFREY Gabapentin 100 mg 03/04/25 19:40 03/04/25 21:21 Gabapentin 100 Mg Capsule PO 100 mg TID GEOFFREY Administration Glucagon 1 mg 03/04/25 12:54 Glucagon For Inj 1 Mg Vial IM PRN PRN Hypoglycemia Protocol Glucose 15 gm 03/04/25 12:54 Glucose Oral Gel 15 Gm Of Glucse In 37.5 Gm Tube PO PRN PRN Hypoglycemia Protocol Guaifenesin 1,200 mg 03/04/25 21:00 03/04/25 21:22 Guaifenesin 12 Hr 600 Mg Tabcr PO 1,200 mg Q12HR GEOFFREY Administration Ceftriaxone Sodium 1 gm/ 50 mls @ 100 mls/hr 03/05/25 12:00 Sodium Chloride IVPB Q24H GEOFFREY Dextrose 1,000 mls @ 100 mls/hr 03/04/25 12:54 Dextrose 5% 1,000 Ml IVPB PRN PRN Hypoglycemia Protocol Insulin Aspart 2 - 5 units 03/04/25 17:00 03/04/25 17:07 Insulin Aspart (*Bkc) 100 Units/Ml SUB-Q Not Given TIDWM [facility] Protocol Levetiracetam 750 mg 03/04/25 21:00 03/04/25 21:21 Levetiracetam 250 Mg Tablet PO 750 mg Q12HR GEOFFREY Administration Melatonin 10 mg 03/04/25 21:00 03/04/25 21:22 Melatonin 5 Mg Tablet PO 10 mg HS GEOFFREY Administration Pantoprazole Sodium 40 mg 03/05/25 09:00 Pantoprazole 40 Mg Tablet PO QAM [facility] Paroxetine HCl 40 mg 03/05/25 09:00 Paroxetine 20 Mg Tablet PO DAILY [facility] Perflutren Lipid Microsphere 0 ml 03/04/25 23:06 Perflutren Lipid Microspheres 1.5 Ml Vial Diluted To 10 Ml Total Volume IV PUSH 03/07/25 23:06 ONCE PRN adequate visualization Protocol Ramipril 5 mg 03/05/25 09:00 Ramipril 5 Mg Capsule PO DAILY [facility] Radiology Results: ITS Impressions Chest X-Ray 03/04/25 11:37 IMPRESSION: 1. Enlarged heart shadow with vascular congestion; no [place] pulmonary edema or large effusion. Head CT 03/04/25 11:38 IMPRESSION: 1. No gross intracranial mass effect or hemorrhage. 2. Old right-sided lacunar infarctions and chronic white vessel ischemic appearing changes. Pulmonary Perfusion Imaging 03/04/25 15:48 IMPRESSION: Low probability for pulmonary embolus. Labs Labs: Laboratory Results - last 24 hr 03/04/25 03/04/25 03/04/25 10:55 11:02 11:03 WBC 13.7 H RBC 3.77 L Hgb 10.4 L Hct 33.3 L MCV 88.3 MCH 27.6 MCHC 31.2 L RDW 13.1 Plt Count 236 MPV 11.3 H Immature Gran % (Auto) 0.7 H Neut % (Auto) 80.4 H Lymph % (Auto) 11.0 L [place] % (Auto) 5.7 Eos % (Auto) 1.5 Baso % (Auto) 0.7 Lymph # (Auto) 1.51 [place] # (Auto) 0.8 H Eos # (Auto) 0.2 Baso # (Auto) 0.1 Abs Immat Gran (auto) 0.09 H Absolute Neuts (auto) 11.1 H Absolute Nucleated RBC 0.000 Nucleated RBC % 0.0 D-Dimer 1.25 H Puncture Site ABG pH ABG pCO2 ABG pO2 ABG PO2/FiO2 Ratio ABG HCO3 ABG O2 Saturation ABG O2 Content ABG Base Excess A-a Gradient Oxyhemoglobin Total Hemoglobin O2 Delivery Device O2 Liters/Min FiO2 Sodium 132 L Potassium 4.1 Chloride 102 Carbon Dioxide 26 Anion Gap 4 BUN 40 H D Creatinine 2.42 H Estim Creat Clear Calc 26 Estimated GFR 27 L Glucose 241 H POC Capillary Glucose 228 H Lactic Acid 0.9 Calcium 8.3 L Total Bilirubin 0.8 AST 23 ALT 16 Alkaline Phosphatase 119 Ammonia < 9 L Troponin I 0.025 Total Protein 7.3 Albumin 3.2 L TSH 1.850 Urine Color Urine Appearance Urine pH Ur Specific [place] Urine Protein Urine Glucose (UA) Urine Ketones Ur Blood (Man) Urine Nitrate Urine Bilirubin Urine Urobilinogen Add Ur Microanalysis Leukocyte Esterase Rfl Urine RBC Urine WBC Ur Squamous Epith Cells Urine Bacteria Urine Casts Ethyl Alcohol < 10 Influenza A (RT-PCR) Influenza B (RT-PCR) RSV (RT-PCR) SARS-CoV-2 RNA (RT-PCR) 03/04/25 03/04/25 03/04/25 11:12 11:50 12:16 WBC RBC Hgb Hct MCV MCH MCHC RDW Plt Count MPV Immature Gran % (Auto) Neut % (Auto) Lymph % (Auto) [place] % (Auto) Eos % (Auto) Baso % (Auto) Lymph # (Auto) [place] # (Auto) Eos # (Auto) Baso # (Auto) Abs Immat Gran (auto) Absolute Neuts (auto) Absolute Nucleated RBC Nucleated RBC % D-Dimer Puncture Site Right radial ABG pH 7.357 ABG pCO2 39.4 ABG pO2 57.1 L ABG PO2/FiO2 Ratio 2.04 ABG HCO3 21.6 L ABG O2 Saturation 88.7 L ABG O2 Content 13.0 L ABG Base Excess -3.6 A-a Gradient 146.7 Oxyhemoglobin 87.0 L* Total Hemoglobin 10.6 L O2 Delivery Device Nasal cannula O2 Liters/Min 3.0 FiO2 28 Sodium Potassium Chloride Carbon Dioxide Anion Gap BUN Creatinine Estim Creat Clear Calc Estimated GFR Glucose POC Capillary Glucose Lactic Acid Calcium Total Bilirubin AST ALT Alkaline Phosphatase Ammonia Troponin I Total Protein Albumin TSH Urine Color Dark yellow Urine Appearance Cloudy H Urine pH 6.0 Ur Specific [place] 1.013 Urine Protein 3+ H Urine Glucose (UA) Trace H Urine Ketones Negative Ur Blood (Man) 2+ H Urine Nitrate Positive H Urine Bilirubin Negative Urine Urobilinogen 1.0 Add Ur Microanalysis Reviewed Leukocyte Esterase Rfl 3+ H Urine RBC 3-5 H Urine WBC >100 H Ur Squamous Epith Cells None seen Urine Bacteria None seen Urine Casts 3-5 Ethyl Alcohol Influenza A (RT-PCR) Negative Influenza B (RT-PCR) Negative RSV (RT-PCR) Negative SARS-CoV-2 RNA (RT-PCR) Negative 03/04/25 03/04/25 03/04/25 13:22 16:53 20:21 WBC RBC Hgb Hct MCV MCH MCHC RDW Plt Count MPV Immature Gran % (Auto) Neut % (Auto) Lymph % (Auto) [place] % (Auto) Eos % (Auto) Baso % (Auto) Lymph # (Auto) [place] # (Auto) Eos # (Auto) Baso # (Auto) Abs Immat Gran (auto) Absolute Neuts (auto) Absolute Nucleated RBC Nucleated RBC % D-Dimer Puncture Site ABG pH ABG pCO2 ABG pO2 ABG PO2/FiO2 Ratio ABG HCO3 ABG O2 Saturation ABG O2 Content ABG Base Excess A-a Gradient Oxyhemoglobin Total Hemoglobin O2 Delivery Device O2 Liters/Min FiO2 Sodium 135 L Potassium 3.8 Chloride 106 Carbon Dioxide 22 Anion Gap 7 BUN 39 H Creatinine 2.32 H Estim Creat Clear Calc 27 Estimated GFR 29 L Glucose 234 H POC Capillary Glucose 215 H 183 H Lactic Acid Calcium 8.1 L Total Bilirubin AST ALT Alkaline Phosphatase Ammonia Troponin I Total Protein Albumin TSH Urine Color Urine Appearance Urine pH Ur Specific [place] Urine Protein Urine Glucose (UA) Urine Ketones Ur Blood (Man) Urine Nitrate Urine Bilirubin Urine Urobilinogen Add Ur Microanalysis Leukocyte Esterase Rfl Urine RBC Urine WBC Ur Squamous Epith Cells Urine Bacteria Urine Casts Ethyl Alcohol Influenza A (RT-PCR) Influenza B (RT-PCR) RSV (RT-PCR) SARS-CoV-2 RNA (RT-PCR) 03/04/25 03/05/25 21:19 04:49 WBC 8.6 RBC 3.38 L Hgb 9.3 L Hct 30.4 L MCV 89.9 MCH 27.5 MCHC 30.6 L RDW 12.9 Plt Count 191 MPV 11.4 H Immature Gran % (Auto) 0.8 H Neut % (Auto) 68.3 Lymph % (Auto) 17.6 L [place] % (Auto) 8.6 H Eos % (Auto) 3.9 Baso % (Auto) 0.8 Lymph # (Auto) 1.52 [place] # (Auto) 0.7 H Eos # (Auto) 0.3 Baso # (Auto) 0.1 Abs Immat Gran (auto) 0.07 H Absolute Neuts (auto) 5.9 Absolute Nucleated RBC 0.000 Nucleated RBC % 0.0 D-Dimer Puncture Site ABG pH ABG pCO2 ABG pO2 ABG PO2/FiO2 Ratio ABG HCO3 ABG O2 Saturation ABG O2 Content ABG Base Excess A-a Gradient Oxyhemoglobin Total Hemoglobin O2 Delivery Device O2 Liters/Min FiO2 Sodium 134 L Potassium 3.6 Chloride 108 H Carbon Dioxide 22 Anion Gap 4 BUN 40 H Creatinine 2.34 H Estim Creat Clear Calc 27 Estimated GFR 28 L Glucose 199 H POC Capillary Glucose 236 H Lactic Acid Calcium 8.0 L Total Bilirubin AST ALT Alkaline Phosphatase Ammonia Troponin I Total Protein Albumin TSH Urine Color Urine Appearance Urine pH Ur Specific [place] Urine Protein Urine Glucose (UA) Urine Ketones Ur Blood (Man) Urine Nitrate Urine Bilirubin Urine Urobilinogen Add Ur Microanalysis Leukocyte Esterase Rfl Urine RBC Urine WBC Ur Squamous Epith Cells Urine Bacteria Urine Casts Ethyl Alcohol Influenza A (RT-PCR) Influenza B (RT-PCR) RSV (RT-PCR) SARS-CoV-2 RNA (RT-PCR) Quality VTE Prophylaxis VTE prophylaxis: pharmacologic ordered
[2025-03-05] MEDS: CLOPIDOGREL BISULFATE 75 MG TABLET PO (09:41)
[2025-03-05] MEDS: OMEGA 3 POLYUNSAT FATTY ACIDS 1 GM CAP PO (09:41)
[2025-03-05] MEDS: GABAPENTIN 100 MG CAPSULE PO ×3 (09:42→17:23)
[2025-03-05] MEDS: FUROSEMIDE 20 MG TABLET PO (09:42)
[2025-03-05] MEDS: guaiFENesin 12 HR 600 MG TABCR 1200 MG PO ×2 (09:42→20:51)
[2025-03-05] MEDS: PANTOPRAZOLE 40 MG TABLET PO (09:42)
[2025-03-05] MEDS: PERFLUTREN LIPID MICROSPHERES 1.5 ML VIAL DILUTED TO 10 ML TOTAL VOLUME IV PUSH (12:03)
--- NOTE | 2025-03-05 12:03 | IVDEFINITY ---
Prior to administration of IV Definity the patient was educated on the risks and benefits of the imaging enhancing agent including potential adverse side effects. The patient verbalized understanding. Allergies were verified. No exclusion criteria were identified and at least one of the following inclusion criteria were met: 1) physician request, 2) patient technically difficult to image (per the [place] [employer] guidelines of two or more segments not discernable within the apical view), or 3) questionable left ventricular function. ?
[2025-03-05] MEDS: INSULIN ASPART (*BKC) 100 UNITS/ML SUB-Q ×2 (12:23→17:18)
[2025-03-05] MEDS: cefTRIAXone 1 GM in SODIUM CHLORIDE 0.9% IV 50 ML 100 ML IVPB (12:23)
[2025-03-05] MEDS: SODIUM CHLORIDE 0.9% IV 1,000 ML 100 ML IV CONT (15:08)
[2025-03-05] MEDS: ATORVASTATIN 40 MG TABLET 80 MG PO (20:50)
[2025-03-05] MEDS: MELATONIN 5 MG TABLET 10 MG PO (20:51)
[2025-03-05] MEDS: ENOXAPARIN 40 MG/0.4 ML SYRINGE SUB-Q (20:55)
[2025-03-06] VITALS (16 sets, daily range): BP systolic 134–188; BP diastolic 60–83; PULSE 60–86; RESP 18; TEMP 36.1–36.9; O2SAT 98–100
[2025-03-06] MEDS: SODIUM CHLORIDE 0.9% IV 1,000 ML 100 ML IV CONT ×3 (01:24→22:25)
--- NOTE | 2025-03-06 07:37 | P.PNIM_ITS ---
Assessment and Plan Assessment and Plan (1) Acute UTI: Code(s): N39.0 - Urinary tract infection, site not specified Status: Acute Assessment and Plan: * AMS on presentation to ED * UA with 3+ protein, trace glucose, 2+ blood, positive nitrate, 3+ leukocyte esterase, 3-5 RBC, > 100 WBC, no bacteria seen * UC - gram (-) bacilli * previous micro reviewed * started on Ceftriaxone on 03/04 * 03/06: A&O x3, blood cultures pending, urine culture growing gram (-) bacilli (2) Acute hypoxemic respiratory failure: Code(s): J96.01 - Acute respiratory failure with hypoxia Status: Acute Assessment and Plan: No documented episodes of hypoxemia documented during this admission. Patient does have documented history of hypoxemia in September of 2023 while admitted with pneumonia. * Chest x-ray: no [place] pulmonary edema or large effusion. Did require supplemental O2 during last admission and was required at discharge. * Echo * EF 60-65%, mild concentric increased left ventricular wall thickness, grade 3 diastolic dysfunction, E/e' 21 elevated, mildly enlarged LA chamber, mild AVS, mild MVR/TVR, severely calcified mitral valve annulus * V/Q scan with low probability of pulmonary emboli * Supplemental O2 * 98% on RA (3) FARHAN (acute kidney injury): Code(s): N17.9 - Acute kidney failure, unspecified Status: Acute Assessment and Plan: * Cr 2.42 on admission (baseline Cr: 1.5-1.6) * UA as above * s/p 1L of IVF, f/u repeat Cr 2.32 * monitor I&Os * 03/06: Cr 2.34 -> 2.08 * Continue IV fluids (4) Atrial flutter: Code(s): I48.92 - Unspecified atrial flutter Status: Acute Assessment and Plan: * Consider Eliquis once FARHAN improves Subjective Date/time seen: 03/06/25 07:37 Interval history: 64-year-old male with a past medical history of GERD, CKD, HFpEF, DM 2, multiple CVAs, afib, CAD s/p CABG x 3, vascular dementia, PAD presents to the ED on 03/04/2025 with altered mental status per his . 03/06/2025 Patient sitting comfortably in bed at time of examination. Accompanied by . Patient states he continues to feel better, denies any CP , SOB, n/v, or abd pain. Urine culture growing gram (-) bacilli - continue IV Rocephin, sensitivities likely resulting tomorrow. Remains afebrile w/o leukocytosis. Kidney function improving as well, Cr 2.34 -> 2.08. Review of Systems Review of Systems: All systems reviewed & are unremarkable except as noted in HPI and below Exam Narrative: GENERAL:Chronically ill-appearing, no acute distress. HEAD: Normocephalic, atraumatic. EYES: PERRLA. Conjunctivae clear. NOSE: Normal no drainage. THROAT: Pharynx clear, no exudate. NECK: Trachea midline. No adenopathy, no masses. RESPIRATORY: Airway patent, respirations nonlabored. Diminished bilaterally CARDIOVASCULAR: irregular rhythm GASTROINTESTINAL: Abdomen is soft and nontender. No organomegaly. Bowel sounds normal in all quadrants. GENITOURINARY: Defer MUSCULOSKELETAL: Moves all extremities. No gross deformities. SKIN: Warm, dry, normal color. missing toenail to right great toe with ecchymosis on tip of toe. Ecchymosis to surrounding toes. NEURO: A&O X4. Speech clear . PSYCHIATRIC: Normal interaction Objective Data Vital Signs Vital Signs: Vital Signs - 24 hr 03/05/25 08:00 03/05/25 09:00 03/05/25 09:30 Temperature Pulse Rate 60 60 Respiratory Rate Blood Pressure 120/58 L Pulse Oximetry 99 Oxygen Delivery Nasal Cannula Oxygen Flow Rate 3 03/05/25 09:41 03/05/25 12:00 03/05/25 14:00 Temperature 97.3 F L Pulse Rate 60 63 63 Respiratory Rate 16 Blood Pressure 162/62 H Pulse Oximetry 99 Oxygen Delivery Oxygen Flow Rate 03/05/25 16:00 03/05/25 20:00 03/05/25 20:00 Temperature Pulse Rate 63 64 Respiratory Rate Blood Pressure Pulse Oximetry 98 Oxygen Delivery Nasal Cannula Oxygen Flow Rate 3 03/05/25 20:51 03/05/25 20:53 03/06/25 00:00 Temperature 97.6 F Pulse Rate 64 62 60 Respiratory Rate 20 Blood Pressure 181/55 H Pulse Oximetry 99 Oxygen Delivery Oxygen Flow Rate 03/06/25 03:59 03/06/25 04:00 Temperature 97 F L Pulse Rate 62 62 Respiratory Rate 18 Blood Pressure 160/70 H Pulse Oximetry 98 Oxygen Delivery Oxygen Flow Rate Intake/Output Intake/Output: Intake & Output 03/03/25 03/04/25 03/05/25 03/06/25 23:59 23:59 23:59 23:59 Intake Total 9569 739 2962 Output Total 400 Balance 1270 920 800 Meds/Results Medications: Active Medications Generic Name Dose Route Start Last Admin Trade Name Freq PRN Reason Stop Dose Admin Atorvastatin Calcium 80 mg 03/04/25 21:00 03/05/25 20:50 Atorvastatin 40 Mg Tablet PO 80 mg HS GEOFFREY Administration Carvedilol 25 mg 03/04/25 17:55 03/05/25 20:51 Carvedilol 25 Mg Tablet PO 25 mg Q12HR GEOFFREY Administration Clopidogrel Bisulfate 75 mg 03/05/25 09:00 03/05/25 09:41 Clopidogrel Bisulfate 75 Mg Tablet PO 75 mg DAILY GEOFFREY Administration Dextrose 12.5 gm 03/04/25 12:54 Dextrose 50% 25 Gm/50 Ml Syringe IV PUSH PRN PRN Hypoglycemia Protocol Enoxaparin Sodium 40 mg 03/04/25 21:00 03/05/25 20:55 Enoxaparin 40 Mg/0.4 Ml Syringe SUB-Q 40 mg HS GEOFFREY Administration Fish Oil 1 gm 03/05/25 09:00 03/05/25 09:41 [place] 3 Polyunsat Fatty Acids 1 Gm Cap PO 1 gm DAILY GEOFFREY Administration Furosemide 20 mg 03/05/25 09:00 03/05/25 09:42 Furosemide 20 Mg Tablet PO 20 mg DAILY GEOFFREY Administration Gabapentin 100 mg 03/04/25 19:40 03/05/25 17:23 Gabapentin 100 Mg Capsule PO 100 mg TID GEOFFREY Administration Glucagon 1 mg 03/04/25 12:54 Glucagon For Inj 1 Mg Vial IM PRN PRN Hypoglycemia Protocol Glucose 15 gm 03/04/25 12:54 Glucose Oral Gel 15 Gm Of Glucse In 37.5 Gm Tube PO PRN PRN Hypoglycemia Protocol Guaifenesin 1,200 mg 03/04/25 21:00 03/05/25 20:51 Guaifenesin 12 Hr 600 Mg Tabcr PO 1,200 mg Q12HR GEOFFREY Administration Ceftriaxone Sodium 1 gm/ 50 mls @ 100 mls/hr 03/05/25 12:00 03/05/25 12:23 Sodium Chloride IVPB 100 mls/hr Q24H GEOFFREY Administration Dextrose 1,000 mls @ 100 mls/hr 03/04/25 12:54 Dextrose 5% 1,000 Ml IVPB PRN PRN Hypoglycemia Protocol Sodium Chloride 1,000 mls @ 100 mls/hr 03/05/25 14:10 03/06/25 01:24 Normal Saline Iv IV CONT 100 mls/hr .Q10H GEOFFREY Administration Insulin Aspart 2 - 5 units 03/04/25 17:00 03/05/25 17:18 Insulin Aspart (*Bkc) 100 Units/Ml SUB-Q 3 units TIDWM GEOFFREY Administration Protocol Levetiracetam 750 mg 03/04/25 21:00 03/05/25 20:51 Levetiracetam 250 Mg Tablet PO 750 mg Q12HR GEOFFREY Administration Melatonin 10 mg 03/04/25 21:00 03/05/25 20:51 Melatonin 5 Mg Tablet PO 10 mg HS GEOFFREY Administration Pantoprazole Sodium 40 mg 03/05/25 09:00 03/05/25 09:42 Pantoprazole 40 Mg Tablet PO 40 mg QAM GEOFFREY Administration Paroxetine HCl 40 mg 03/05/25 09:00 03/05/25 09:42 Paroxetine 20 Mg Tablet PO 40 mg DAILY GEOFFREY Administration Ramipril 5 mg 03/05/25 09:00 03/05/25 09:42 Ramipril 5 Mg Capsule PO 5 mg DAILY GEOFFREY Administration Radiology Results: ITS Impressions Chest X-Ray 03/04/25 11:37 IMPRESSION: 1. Enlarged heart shadow with vascular congestion; no [place] pulmonary edema or large effusion. Head CT 03/04/25 11:38 IMPRESSION: 1. No gross intracranial mass effect or hemorrhage. 2. Old right-sided lacunar infarctions and chronic white vessel ischemic appearing changes. Pulmonary Perfusion Imaging 03/04/25 15:48 IMPRESSION: Low probability for pulmonary embolus. Labs Labs: Laboratory Results - last 24 hr 03/05/25 03/05/25 03/05/25 08:01 11:29 16:47 POC Capillary Glucose 164 H 289 H 294 H 03/05/25 20:58 POC Capillary Glucose 272 H Quality VTE Prophylaxis VTE prophylaxis: pharmacologic ordered
[2025-03-06 07:44] LABS: Hematocrit 32.2 % (42.0-52.0); Hemoglobin 9.7 g/dL (14.0-18.0); Immature Granulocyte Percent A 1.2 % (0-0.5); Lymphocytes Absolute Auto 1.10 K/mm3 (0.9-3.2); Mean Corpuscular HGB Conc 30.1 g/dl (32-36); Mean Corpuscular Hemoglobin 27.5 pg (26-34); Mean Corpuscular Volume 91.2 fl (80-100); Nucleated Red Blood Cells Absolute Auto 0.000 K/mm3 (0.0-0.012); Nucleated Red Blood Cells Perc 0.0 % (0.0-0.2); Platelet Count Result 187 k/mm3 (150-375); Red Blood Count 3.53 M/mm3 (4.6-6.20); White Blood Count 5.7 K/mm3 (4.5-10.0)
[2025-03-06 08:10] LABS: Alanine Aminotransferase 15 U/L (6-50); Albumin Level 2.9 g/dL (3.5-5.1); Alkaline Phosphatase 102 U/L (38-126); Anion Gap 7 mmol/L (4-12); Aspartate Amino Transferase 20 U/L (17-59); Bilirubin,Total 0.4 mg/dL (0.2-1.3); Blood Urea Nitrogen 38 mg/dL (9-20); Calcium 7.8 mg/dL (8.4-10.2); Carbon Dioxide 21 mmol/L (22-30); Chloride 108 mmol/L (98-107); Estimated CRCL calculation 30 ml/min; Estimated Glomerular Filt Rate 32; Glucose 236 mg/dL (65-110); Potassium 3.8 mmol/L (3.4-5.0); Sodium 136 mmol/L (137-145); Total Protein 6.5 g/dL (6.3-8.2)
[2025-03-06] MEDS: INSULIN ASPART (*BKC) 100 UNITS/ML SUB-Q ×2 (08:27→17:22)
[2025-03-06] MEDS: FUROSEMIDE 20 MG TABLET PO (08:41)
[2025-03-06] MEDS: GABAPENTIN 100 MG CAPSULE PO ×3 (08:41→17:21)
[2025-03-06] MEDS: OMEGA 3 POLYUNSAT FATTY ACIDS 1 GM CAP PO (08:41)
[2025-03-06] MEDS: PANTOPRAZOLE 40 MG TABLET PO (08:41)
[2025-03-06] MEDS: guaiFENesin 12 HR 600 MG TABCR 1200 MG PO ×2 (08:41→20:37)
[2025-03-06] MEDS: CLOPIDOGREL BISULFATE 75 MG TABLET PO (08:41)
[2025-03-06] MEDS: cefTRIAXone 1 GM in SODIUM CHLORIDE 0.9% IV 50 ML 100 ML IVPB (11:33)
--- NOTE | 2025-03-06 15:34 | PC.NURSE ---
I went to recheck pt BP after getting the hydralazine order and the pt is now 134/76 manually. I will not be giving this hydralazine right now.
[2025-03-06] MEDS: MELATONIN 5 MG TABLET 10 MG PO (20:36)
[2025-03-06] MEDS: ATORVASTATIN 40 MG TABLET 80 MG PO (20:37)
[2025-03-06] MEDS: ENOXAPARIN 40 MG/0.4 ML SYRINGE SUB-Q (20:37)
[2025-03-07] VITALS (12 sets, daily range): BP systolic 140–184; BP diastolic 44–69; PULSE 54–74; RESP 14–24; TEMP 36.2–36.6; O2SAT 98–100
[2025-03-07 05:18] LABS: Hematocrit 27.1 % (42.0-52.0); Hemoglobin 8.4 g/dL (14.0-18.0); Immature Granulocyte Percent A 1.4 % (0-0.5); Lymphocytes Absolute Auto 1.29 K/mm3 (0.9-3.2); Mean Corpuscular HGB Conc 31.0 g/dl (32-36); Mean Corpuscular Hemoglobin 27.5 pg (26-34); Mean Corpuscular Volume 88.6 fl (80-100); Nucleated Red Blood Cells Absolute Auto 0.000 K/mm3 (0.0-0.012); Nucleated Red Blood Cells Perc 0.0 % (0.0-0.2); Platelet Count Result 168 k/mm3 (150-375); Red Blood Count 3.06 M/mm3 (4.6-6.20); White Blood Count 6.2 K/mm3 (4.5-10.0)
[2025-03-07 05:37] LABS: Alanine Aminotransferase 14 U/L (6-50); Albumin Level 2.5 g/dL (3.5-5.1); Alkaline Phosphatase 82 U/L (38-126); Anion Gap 6 mmol/L (4-12); Aspartate Amino Transferase 22 U/L (17-59); Bilirubin,Total 0.5 mg/dL (0.2-1.3); Blood Urea Nitrogen 34 mg/dL (9-20); Calcium 7.5 mg/dL (8.4-10.2); Carbon Dioxide 20 mmol/L (22-30); Chloride 108 mmol/L (98-107); Estimated CRCL calculation 32 ml/min; Estimated Glomerular Filt Rate 36; Glucose 166 mg/dL (65-110); Potassium 3.4 mmol/L (3.4-5.0); Sodium 134 mmol/L (137-145); Total Protein 5.8 g/dL (6.3-8.2)
[2025-03-07] MEDS: guaiFENesin 12 HR 600 MG TABCR 1200 MG PO ×2 (08:31→20:47)
[2025-03-07] MEDS: OMEGA 3 POLYUNSAT FATTY ACIDS 1 GM CAP PO (08:31)
[2025-03-07] MEDS: PANTOPRAZOLE 40 MG TABLET PO (08:32)
[2025-03-07] MEDS: FUROSEMIDE 20 MG TABLET PO (08:32)
[2025-03-07] MEDS: GABAPENTIN 100 MG CAPSULE PO ×3 (08:32→17:19)
[2025-03-07] MEDS: CLOPIDOGREL BISULFATE 75 MG TABLET PO (08:32)
[2025-03-07] MEDS: SODIUM CHLORIDE 0.9% IV 1,000 ML 100 ML IV CONT ×2 (10:09→21:47)
[2025-03-07] MEDS: cefTRIAXone 1 GM in SODIUM CHLORIDE 0.9% IV 50 ML 100 ML IVPB (12:09)
[2025-03-07] MEDS: INSULIN ASPART (*BKC) 100 UNITS/ML SUB-Q ×2 (12:18→17:19)
--- NOTE | 2025-03-07 13:47 | P.PNIM_ITS ---
Assessment and Plan Assessment and Plan (1) Acute UTI: Code(s): N39.0 - Urinary tract infection, site not specified Status: Acute Assessment and Plan: * AMS on presentation to ED * UA with 3+ protein, trace glucose, 2+ blood, positive nitrate, 3+ leukocyte esterase, 3-5 RBC, > 100 WBC, no bacteria seen * UC - gram (-) bacilli * previous micro reviewed * started on Ceftriaxone on 03/04 * 03/07: A&O x3, blood cultures negative for growth, urine culture growing klebsiella pneumoniae (2) Hallucinations, visual: Code(s): R44.1 - Visual hallucinations Status: Acute Assessment and Plan: * Likely multifactorial: vascular dementia, metabolic encephalopathy * reports prior history of hallucinations with concurrent infections * WBC wnl * Ammonia <9 * UTI, being tx w/ abx * Head CT No gross intracranial mass effect or hemorrhage. Old right-sided lacunar infarctions and chronic white vessel ischemic appearing changes. * CXR: Vascular congestion * May consider neurology consult (3) Acute hypoxemic respiratory failure: Code(s): J96.01 - Acute respiratory failure with hypoxia Status: Acute Assessment and Plan: No documented episodes of hypoxemia documented during this admission. Patient does have documented history of hypoxemia in September of 2023 while admitted with pneumonia. * Chest x-ray: no [place] pulmonary edema or large effusion. Did require supplemental O2 during last admission and was required at discharge. * Echo * EF 60-65%, mild concentric increased left ventricular wall thickness, grade 3 diastolic dysfunction, E/e' 21 elevated, mildly enlarged LA chamber, mild AVS, mild MVR/TVR, severely calcified mitral valve annulus * V/Q scan with low probability of pulmonary emboli * Supplemental O2 * 98% on RA (4) FARHAN (acute kidney injury): Code(s): N17.9 - Acute kidney failure, unspecified Status: Acute Assessment and Plan: * Cr 2.42 on admission (baseline Cr: 1.5-1.6) * UA as above * s/p 1L of IVF, f/u repeat Cr 2.32 * monitor I&Os * 03/06: Cr 2.34 -> 2.08 * Continue IV fluids (5) Atrial flutter: Code(s): I48.92 - Unspecified atrial flutter Status: Acute Assessment and Plan: * Consider Eliquis once FARHAN improves Subjective Date/time seen: 03/07/25 13:47 Interval history: 64-year-old male with a past medical history of GERD, CKD, HFpEF, DM 2, m ultiple CVAs, afib, CAD s/p CABG x 3, vascular dementia, PAD presents to the ED on 03/04/2025 with altered mental status per his . 03/07/2025 Patient sitting comfortably in bed at time of examination. Accompanied by . Remains afebrile without leukocytosis. reporting that the patient is talking with his sister, who is not actually present in the room - reports prior history of hallucinations with concurrent infections in past. Will consult neurology although hallucinations likely 2/2 underlying infection and vascular dementia. He remains A&Ox3. Will repeat ammonia, ABG. Review of Systems Review of Systems: All systems reviewed & are unremarkable except as noted in HPI and below Exam Narrative: GENERAL:Chronically ill-appearing, no acute distress. HEAD: Normocephalic, atraumatic. EYES: PERRLA. Conjunctivae clear. NOSE: Normal no drainage. THROAT: Pharynx clear, no exudate. NECK: Trachea midline. No adenopathy, no masses. RESPIRATORY: Airway patent, respirations nonlabored. Diminished bilaterally CARDIOVASCULAR: irregular rhythm GASTROINTESTINAL: Abdomen is soft and nontender. No organomegaly. Bowel sounds normal in all quadrants. GENITOURINARY: Defer MUSCULOSKELETAL: Moves all extremities. No gross deformities. SKIN: Warm, dry, normal color. missing toenail to right great toe with ecchymosis on tip of toe. Ecchymosis to surrounding toes. NEURO: A&O X4. Speech clear . PSYCHIATRIC: Normal interaction Objective Data Vital Signs Vital Signs: Vital Signs - 24 hr 03/06/25 14:47 03/06/25 15:33 03/06/25 16:00 Temperature Pulse Rate 76 83 Respiratory Rate Blood Pressure 188/82 H 134/76 Pulse Oximetry Oxygen Delivery Oxygen Flow Rate 03/06/25 17:47 03/06/25 19:08 03/06/25 20:00 Temperature Pulse Rate 80 Respiratory Rate Blood Pressure 180/70 H 154/62 H Pulse Oximetry 98 Oxygen Delivery Nasal Cannula Oxygen Flow Rate 3 03/06/25 20:00 03/06/25 20:36 03/06/25 21:15 Temperature 98.4 F Pulse Rate 69 72 86 Respiratory Rate 18 Blood Pressure 172/73 H Pulse Oximetry 98 Oxygen Delivery Oxygen Flow Rate 03/07/25 00:00 03/07/25 04:00 03/07/25 06:00 Temperature 97.2 F L Pulse Rate 71 66 72 Respiratory Rate 18 Blood Pressure 154/44 H Pulse Oximetry 99 Oxygen Delivery Oxygen Flow Rate 03/07/25 08:25 03/07/25 08:30 03/07/25 08:30 Temperature Pulse Rate 64 69 Respiratory Rate Blood Pressure 140/50 L Pulse Oximetry 99 Oxygen Delivery Nasal Cannula Oxygen Flow Rate 3 03/07/25 08:32 Temperature Pulse Rate 64 Respiratory Rate Blood Pressure Pulse Oximetry Oxygen Delivery Oxygen Flow Rate Intake/Output Intake/Output: Intake & Output 03/04/25 03/05/25 03/06/25 03/07/25 23:59 23:59 23:59 23:59 Intake Total 5022 245 4017 1170 Output Total 1300 1125 Balance 2503 136 8785 45 Meds/Results Medications: Active Medications Generic Name Dose Route Start Last Admin Trade Name Freq PRN Reason Stop Dose Admin Atorvastatin Calcium 80 mg 03/04/25 21:00 03/06/25 20:37 Atorvastatin 40 Mg Tablet PO 80 mg HS GEOFFREY Administration Carvedilol 25 mg 03/04/25 17:55 03/07/25 08:32 Carvedilol 25 Mg Tablet PO 25 mg Q12HR GEOFFREY Administration Clopidogrel Bisulfate 75 mg 03/05/25 09:00 03/07/25 08:32 Clopidogrel Bisulfate 75 Mg Tablet PO 75 mg DAILY GEOFFREY Administration Dextrose 12.5 gm 03/04/25 12:54 Dextrose 50% 25 Gm/50 Ml Syringe IV PUSH PRN PRN Hypoglycemia Protocol Enoxaparin Sodium 40 mg 03/04/25 21:00 03/06/25 20:37 Enoxaparin 40 Mg/0.4 Ml Syringe SUB-Q 40 mg HS GEOFFREY Administration Fish Oil 1 gm 03/05/25 09:00 03/07/25 08:31 [place] 3 Polyunsat Fatty Acids 1 Gm Cap PO 1 gm DAILY GEOFFREY Administration Furosemide 20 mg 03/05/25 09:00 03/07/25 08:32 Furosemide 20 Mg Tablet PO 20 mg DAILY GEOFFREY Administration Gabapentin 100 mg 03/04/25 19:40 03/07/25 12:10 Gabapentin 100 Mg Capsule PO 100 mg TID GEOFFREY Administration Glucagon 1 mg 03/04/25 12:54 Glucagon For Inj 1 Mg Vial IM PRN PRN Hypoglycemia Protocol Glucose 15 gm 03/04/25 12:54 Glucose Oral Gel 15 Gm Of Glucse In 37.5 Gm Tube PO PRN PRN Hypoglycemia Protocol Guaifenesin 1,200 mg 03/04/25 21:00 03/07/25 08:31 Guaifenesin 12 Hr 600 Mg Tabcr PO 1,200 mg Q12HR GEOFFREY Administration Ceftriaxone Sodium 1 gm/ 50 mls @ 100 mls/hr 03/05/25 12:00 03/07/25 12:09 Sodium Chloride IVPB 100 mls/hr Q24H GEOFFREY Administration Dextrose 1,000 mls @ 100 mls/hr 03/04/25 12:54 Dextrose 5% 1,000 Ml IVPB PRN PRN Hypoglycemia Protocol Sodium Chloride 1,000 mls @ 100 mls/hr 03/05/25 14:10 03/07/25 10:09 Normal Saline Iv IV CONT 100 mls/hr .Q10H GEOFFREY Administration Insulin Aspart 2 - 5 units 03/04/25 17:00 03/07/25 12:18 Insulin Aspart (*Bkc) 100 Units/Ml SUB-Q 3 units TIDWM GEOFFREY Administration Protocol Levetiracetam 750 mg 03/04/25 21:00 03/07/25 08:31 Levetiracetam 250 Mg Tablet PO 750 mg Q12HR GEOFFREY Administration Melatonin 10 mg 03/04/25 21:00 03/06/25 20:36 Melatonin 5 Mg Tablet PO 10 mg HS GEOFFREY Administration Pantoprazole Sodium 40 mg 03/05/25 09:00 03/07/25 08:32 Pantoprazole 40 Mg Tablet PO 40 mg QAM GEOFFREY Administration Paroxetine HCl 40 mg 03/05/25 09:00 03/07/25 08:31 Paroxetine 20 Mg Tablet PO 40 mg DAILY GEOFFREY Administration Ramipril 5 mg 03/05/25 09:00 03/07/25 08:32 Ramipril 5 Mg Capsule PO 5 mg DAILY GEOFFREY Administration Radiology Results: ITS Impressions Chest X-Ray 03/04/25 11:37 IMPRESSION: 1. Enlarged heart shadow with vascular congestion; no [place] pulmonary edema or large effusion. Head CT 03/04/25 11:38 IMPRESSION: 1. No gross intracranial mass effect or hemorrhage. 2. Old right-sided lacunar infarctions and chronic white vessel ischemic appearing changes. Pulmonary Perfusion Imaging 03/04/25 15:48 IMPRESSION: Low probability for pulmonary embolus. Labs Labs: Laboratory Results - last 24 hr 03/06/25 03/06/25 03/07/25 16:45 19:41 04:34 WBC 6.2 RBC 3.06 L Hgb 8.4 L Hct 27.1 L MCV 88.6 MCH 27.5 MCHC 31.0 L RDW 13.1 Plt Count 168 MPV 11.0 H Immature Gran % (Auto) 1.4 H Neut % (Auto) 64.8 Lymph % (Auto) 20.7 [place] % (Auto) 10.5 H Eos % (Auto) 1.3 Baso % (Auto) 1.3 H Lymph # (Auto) 1.29 [place] # (Auto) 0.7 H Eos # (Auto) 0.1 Baso # (Auto) 0.1 Abs Immat Gran (auto) 0.09 H Absolute Neuts (auto) 4.0 Absolute Nucleated RBC 0.000 Nucleated RBC % 0.0 Sodium 134 L Potassium 3.4 Chloride 108 H Carbon Dioxide 20 L Anion Gap 6 BUN 34 H Creatinine 1.92 H Estim Creat Clear Calc 32 Estimated GFR 36 L Glucose 166 H POC Capillary Glucose 282 H 227 H Calcium 7.5 L Total Bilirubin 0.5 AST 22 ALT 14 Alkaline Phosphatase 82 Total Protein 5.8 L Albumin 2.5 L 03/07/25 03/07/25 07:42 12:03 WBC RBC Hgb Hct MCV MCH MCHC RDW Plt Count MPV Immature Gran % (Auto) Neut % (Auto) Lymph % (Auto) [place] % (Auto) Eos % (Auto) Baso % (Auto) Lymph # (Auto) [place] # (Auto) Eos # (Auto) Baso # (Auto) Abs Immat Gran (auto) Absolute Neuts (auto) Absolute Nucleated RBC Nucleated RBC % Sodium Potassium Chloride Carbon Dioxide Anion Gap BUN Creatinine Estim Creat Clear Calc Estimated GFR Glucose POC Capillary Glucose 134 H 288 H Calcium Total Bilirubin AST ALT Alkaline Phosphatase Total Protein Albumin Quality VTE Prophylaxis VTE prophylaxis: pharmacologic ordered
[2025-03-07 14:34] LABS: Alveolar/Arterial O2 Gradient 110.3 mmHg; Fractional Inspired Oxygen 28 %; HCO3 ABG 21.0 mEq/l (22.0-26.0); PCO2 ABG 38.8 mmHg (35.0-45.0); PO2 FiO2 Ratio Arterial Blood 1.56 %
[2025-03-07 14:38] LABS: Oxygen Saturation ABG 77.5 % (95.0-100.0); PO2 ABG 43.6 mmHg (80.0-100.0); Site Drawn RIGHT RADIAL
[2025-03-07 14:39] LABS: Modified Allen's Test Pass
[2025-03-07 14:48] LABS: Ammonia < 9 umol/L (9-30)
[2025-03-07] MEDS: MELATONIN 5 MG TABLET 10 MG PO (20:47)
[2025-03-07] MEDS: ATORVASTATIN 40 MG TABLET 80 MG PO (20:47)
[2025-03-07] MEDS: ENOXAPARIN 40 MG/0.4 ML SYRINGE SUB-Q (20:49)
[2025-03-08] VITALS (14 sets, daily range): BP systolic 153–182; BP diastolic 49–57; PULSE 62–115; RESP 20; TEMP 36.1–36.4; O2SAT 93–99
[2025-03-08 04:49] LABS: Hematocrit 26.8 % (42.0-52.0); Hemoglobin 8.4 g/dL (14.0-18.0); Immature Granulocyte Percent A 2.5 % (0-0.5); Lymphocytes Absolute Auto 1.13 K/mm3 (0.9-3.2); Mean Corpuscular HGB Conc 31.3 g/dl (32-36); Mean Corpuscular Hemoglobin 27.5 pg (26-34); Mean Corpuscular Volume 87.9 fl (80-100); Nucleated Red Blood Cells Absolute Auto 0.000 K/mm3 (0.0-0.012); Nucleated Red Blood Cells Perc 0.0 % (0.0-0.2); Platelet Count Result 158 k/mm3 (150-375); Red Blood Count 3.05 M/mm3 (4.6-6.20); White Blood Count 6.1 K/mm3 (4.5-10.0)
[2025-03-08 05:13] LABS: Alanine Aminotransferase 24 U/L (6-50); Albumin Level 2.6 g/dL (3.5-5.1); Alkaline Phosphatase 93 U/L (38-126); Anion Gap 6 mmol/L (4-12); Aspartate Amino Transferase 35 U/L (17-59); Bilirubin,Total 0.5 mg/dL (0.2-1.3); Blood Urea Nitrogen 30 mg/dL (9-20); Calcium 7.7 mg/dL (8.4-10.2); Carbon Dioxide 21 mmol/L (22-30); Chloride 109 mmol/L (98-107); Estimated CRCL calculation 30 ml/min; Estimated Glomerular Filt Rate 33; Glucose 177 mg/dL (65-110); Potassium 3.4 mmol/L (3.4-5.0); Sodium 136 mmol/L (137-145); Total Protein 6.1 g/dL (6.3-8.2)
--- NOTE | 2025-03-08 07:13 | P.PNIM_ITS ---
Assessment and Plan Assessment and Plan (1) Acute UTI: Code(s): N39.0 - Urinary tract infection, site not specified Status: Acute Assessment and Plan: * AMS on presentation to ED * UA with 3+ protein, trace glucose, 2+ blood, positive nitrate, 3+ leukocyte esterase, 3-5 RBC, > 100 WBC, no bacteria seen * UC - gram (-) bacilli * previous micro reviewed * started on Ceftriaxone on 03/04 * 03/07: A&O x3, blood cultures negative for growth, urine culture growing klebsiella pneumoniae * Start Cefpodoxime (2) Hallucinations, visual: Code(s): R44.1 - Visual hallucinations Status: Acute Assessment and Plan: * Likely multifactorial: vascular dementia, metabolic encephalopathy * reports prior history of hallucinations with concurrent infections * WBC wnl * Ammonia <9 * UTI, being tx w/ abx * Head CT No gross intracranial mass effect or hemorrhage. Old right-sided lacunar infarctions and chronic white vessel ischemic appearing changes. * CXR: Vascular congestion * May consider neurology consult (3) Acute hypoxemic respiratory failure: Code(s): J96.01 - Acute respiratory failure with hypoxia Status: Acute Assessment and Plan: * Chest x-ray: no [place] pulmonary edema or large effusion. Did require supplemental O2 during last admission and was required at discharge. * Echo * EF 60-65%, mild concentric increased left ventricular wall thickness, grade 3 diastolic dysfunction, E/e' 21 elevated, mildly enlarged LA chamber, mild AVS, mild MVR/TVR, severely calcified mitral valve annulus * V/Q scan with low probability of pulmonary emboli * 98% on 2L NC * Chest CT: Diffuse patchy groundglass opacities with small pleural effusions and dependent atelectasis. In the setting of hypoxia this may represent pulmonary edema. Differential diagnosis includes diffuse inflammatory or infectious process depending on clinical context. * ABG concerning for hypoxemia, although discussed case with Dr. Braun who agrees likely sample containing some venous blood, and given appropriate O2 saturations on 2 L nasal cannula * Likely cardiogenic, although output balance is appropriate * Will increase Lasix to 20 mg b.i.d. and reassess volume status (4) FARHAN (acute kidney injury): Code(s): N17.9 - Acute kidney failure, unspecified Status: Acute Assessment and Plan: * Cr 2.42 on admission (baseline Cr: 2) * UA as above * s/p 1L of IVF, f/u repeat Cr 2.32 * monitor I&Os * 03/08: Cr 2.34 -> 2.04 * Discontinue IVFs (5) Atrial flutter: Code(s): I48.92 - Unspecified atrial flutter Status: Acute Assessment and Plan: * Consider Eliquis once FARHAN improves Subjective Date/time seen: 03/08/25 07:13 Interval history: 64-year-old male with a past medical history of GERD, CKD, HFpEF, DM 2, multiple CVAs, afib, CAD s/p CABG x 3, vascular dementia, PAD presents to the ED on 03/04/2025 with altered mental status per his . 03/08/2025 Patient sitting comfortably in bed at time of examination. Remains afebrile without leukocytosis. Kidney function slightly worse today, however baseline creatinine appears to be around 2. Neurology consulted for hallucinations, however these are likely secondary to underlying UTI. Discussed case with Dr. Braun regarding ABG results: Given appropriate O2 saturation on monitor, ABG results likely altered by possible venous blood, however chest CT suggestive of pulmonary edema with possibility of inflammatory/infectious process depending on clinical context. Will increase Lasix to 20 mg b.i.d. and reassess tomorrow, continue to monitor I/Os. Discontinue IVFs Review of Systems Review of Systems: All systems reviewed & are unremarkable except as noted in HPI and below Exam Narrative: GENERAL:Chronically ill-appearing, no acute distress. HEAD: Normocephalic, atraumatic. EYES: PERRLA. Conjunctivae clear. NOSE: Normal no drainage. THROAT: Pharynx clear, no exudate. NECK: Trachea midline. No adenopathy, no masses. RESPIRATORY: Airway patent, respirations nonlabored. Diminished bilaterally CARDIOVASCULAR: irregular rhythm GASTROINTESTINAL: Abdomen is soft and nontender. No organomegaly. Bowel sounds normal in all quadrants. GENITOURINARY: Defer MUSCULOSKELETAL: Moves all extremities. No gross deformities. SKIN: Warm, dry, normal color. missing toenail to right great toe with ecchymosis on tip of toe. Ecchymosis to surrounding toes. NEURO: A&O X4. Speech clear . PSYCHIATRIC: Normal interaction Objective Data Vital Signs Vital Signs: Vital Signs - 24 hr 03/07/25 08:25 03/07/25 08:30 03/07/25 08:30 Temperature Pulse Rate 64 69 Respiratory Rate Blood Pressure 140/50 L Pulse Oximetry 99 Oxygen Delivery Nasal Cannula Oxygen Flow Rate 3 Fraction of Inspired Oxygen 03/07/25 08:32 03/07/25 12:00 03/07/25 14:00 Temperature 97.7 F Pulse Rate 64 70 64 Respiratory Rate 14 Blood Pressure 153/69 H Pulse Oximetry 100 Oxygen Delivery Oxygen Flow Rate Fraction of Inspired Oxygen 03/07/25 16:00 03/07/25 20:38 03/07/25 20:48 Temperature 97.9 F Pulse Rate 67 74 70 Respiratory Rate 24 H Blood Pressure 184/69 H Pulse Oximetry 100 Oxygen Delivery Oxygen Flow Rate Fraction of Inspired Oxygen 03/07/25 22:21 03/08/25 00:00 03/08/25 04:00 Temperature Pulse Rate 54 L 67 67 Respiratory Rate 20 Blood Pressure Pulse Oximetry 98 Oxygen Delivery Nasal Cannula Oxygen Flow Rate 3 Fraction of Inspired Oxygen 32 03/08/25 04:31 Temperature 97.0 F L Pulse Rate 68 Respiratory Rate 20 Blood Pressure 157/49 H Pulse Oximetry 99 Oxygen Delivery Oxygen Flow Rate Fraction of Inspired Oxygen Intake/Output Intake/Output: Intake & Output 03/05/25 03/06/25 03/07/25 03/08/25 23:59 23:59 23:59 23:59 Intake Total 970 3490 2290 700 Output Total 1300 1925 700 Balance 970 2190 365 0 Meds/Results Medications: Active Medications Generic Name Dose Route Start Last Admin Trade Name Freq PRN Reason Stop Dose Admin Atorvastatin Calcium 80 mg 03/04/25 21:00 03/07/25 20:47 Atorvastatin 40 Mg Tablet PO 80 mg HS GEOFFREY Administration Carvedilol 25 mg 03/04/25 17:55 03/07/25 20:48 Carvedilol 25 Mg Tablet PO 25 mg Q12HR GEOFFREY Administration Clopidogrel Bisulfate 75 mg 03/05/25 09:00 03/07/25 08:32 Clopidogrel Bisulfate 75 Mg Tablet PO 75 mg DAILY GEOFFREY Administration Dextrose 12.5 gm 03/04/25 12:54 Dextrose 50% 25 Gm/50 Ml Syringe IV PUSH PRN PRN Hypoglycemia Protocol Enoxaparin Sodium 40 mg 03/04/25 21:00 03/07/25 20:49 Enoxaparin 40 Mg/0.4 Ml Syringe SUB-Q 40 mg HS GEOFFREY Administration Fish Oil 1 gm 03/05/25 09:00 03/07/25 08:31 [place] 3 Polyunsat Fatty Acids 1 Gm Cap PO 1 gm DAILY GEOFFREY Administration Furosemide 20 mg 03/05/25 09:00 03/07/25 08:32 Furosemide 20 Mg Tablet PO 20 mg DAILY GEOFFREY Administration Gabapentin 100 mg 03/04/25 19:40 03/07/25 17:19 Gabapentin 100 Mg Capsule PO 100 mg TID GEOFFREY Administration Glucagon 1 mg 03/04/25 12:54 Glucagon For Inj 1 Mg Vial IM PRN PRN Hypoglycemia Protocol Glucose 15 gm 03/04/25 12:54 Glucose Oral Gel 15 Gm Of Glucse In 37.5 Gm Tube PO PRN PRN Hypoglycemia Protocol Guaifenesin 1,200 mg 03/04/25 21:00 03/07/25 20:47 Guaifenesin 12 Hr 600 Mg Tabcr PO 1,200 mg Q12HR GEOFFREY Administration Ceftriaxone Sodium 1 gm/ 50 mls @ 100 mls/hr 03/05/25 12:00 03/07/25 12:09 Sodium Chloride IVPB 100 mls/hr Q24H GEOFFREY Administration Dextrose 1,000 mls @ 100 mls/hr 03/04/25 12:54 Dextrose 5% 1,000 Ml IVPB PRN PRN Hypoglycemia Protocol Sodium Chloride 1,000 mls @ 100 mls/hr 03/05/25 14:10 03/07/25 21:47 Normal Saline Iv IV CONT 100 mls/hr .Q10H GEOFFREY Administration Insulin Aspart 2 - 5 units 03/04/25 17:00 03/07/25 17:19 Insulin Aspart (*Bkc) 100 Units/Ml SUB-Q 2 units TIDWM GEOFFREY Administration Protocol Levetiracetam 750 mg 03/04/25 21:00 03/07/25 20:48 Levetiracetam 250 Mg Tablet PO 750 mg Q12HR GEOFFREY Administration Melatonin 10 mg 03/04/25 21:00 03/07/25 20:47 Melatonin 5 Mg Tablet PO 10 mg HS GEOFFREY Administration Pantoprazole Sodium 40 mg 03/05/25 09:00 03/07/25 08:32 Pantoprazole 40 Mg Tablet PO 40 mg QAM GEOFFREY Administration Paroxetine HCl 40 mg 03/05/25 09:00 03/07/25 08:31 Paroxetine 20 Mg Tablet PO 40 mg DAILY GEOFFREY Administration Ramipril 5 mg 03/05/25 09:00 03/07/25 08:32 Ramipril 5 Mg Capsule PO 5 mg DAILY GEOFFREY Administration Radiology Results: ITS Impressions Chest X-Ray 03/04/25 11:37 IMPRESSION: 1. Enlarged heart shadow with vascular congestion; no [place] pulmonary edema or large effusion. Head CT 03/04/25 11:38 IMPRESSION: 1. No gross intracranial mass effect or hemorrhage. 2. Old right-sided lacunar infarctions and chronic white vessel ischemic appearing changes. Pulmonary Perfusion Imaging 03/04/25 15:48 IMPRESSION: Low probability for pulmonary embolus. Labs Labs: Laboratory Results - last 24 hr 03/07/25 03/07/25 03/07/25 07:42 12:03 14:32 WBC RBC Hgb Hct MCV MCH MCHC RDW Plt Count MPV Immature Gran % (Auto) Neut % (Auto) Lymph % (Auto) [place] % (Auto) Eos % (Auto) Baso % (Auto) Lymph # (Auto) [place] # (Auto) Eos # (Auto) Baso # (Auto) Abs Immat Gran (auto) Absolute Neuts (auto) Absolute Nucleated RBC Nucleated RBC % Puncture Site ABG pH ABG pCO2 ABG pO2 ABG PO2/FiO2 Ratio ABG HCO3 ABG O2 Saturation ABG O2 Content ABG Base Excess A-a Gradient Oxyhemoglobin Total Hemoglobin O2 Delivery Device O2 Liters/Min FiO2 Sodium Potassium Chloride Carbon Dioxide Anion Gap BUN Creatinine Estim Creat Clear Calc Estimated GFR Glucose POC Capillary Glucose 134 H 288 H Calcium Total Bilirubin AST ALT Alkaline Phosphatase Ammonia < 9 L Total Protein Albumin 03/07/25 03/07/25 03/07/25 14:36 16:47 20:35 WBC RBC Hgb Hct MCV MCH MCHC RDW Plt Count MPV Immature Gran % (Auto) Neut % (Auto) Lymph % (Auto) [place] % (Auto) Eos % (Auto) Baso % (Auto) Lymph # (Auto) [place] # (Auto) Eos # (Auto) Baso # (Auto) Abs Immat Gran (auto) Absolute Neuts (auto) Absolute Nucleated RBC Nucleated RBC % Puncture Site Right radial ABG pH 7.352 ABG pCO2 38.8 ABG pO2 43.6 L* ABG PO2/FiO2 Ratio 1.56 ABG HCO3 21.0 L ABG O2 Saturation 77.5 L* ABG O2 Content Not Reportable ABG Base Excess -4.1 A-a Gradient 110.3 Oxyhemoglobin Not Reportable Total Hemoglobin Not Reportable O2 Delivery Device Not Reportable O2 Liters/Min Not Reportable FiO2 28 Sodium Potassium Chloride Carbon Dioxide Anion Gap BUN Creatinine Estim Creat Clear Calc Estimated GFR Glucose POC Capillary Glucose 223 H 157 H Calcium Total Bilirubin AST ALT Alkaline Phosphatase Ammonia Total Protein Albumin 03/08/25 04:33 WBC 6.1 RBC 3.05 L Hgb 8.4 L Hct 26.8 L MCV 87.9 MCH 27.5 MCHC 31.3 L RDW 13.2 Plt Count 158 MPV 10.4 Immature Gran % (Auto) 2.5 H Neut % (Auto) 67.4 Lymph % (Auto) 18.5 [place] % (Auto) 9.0 H Eos % (Auto) 1.6 Baso % (Auto) 1.0 Lymph # (Auto) 1.13 [place] # (Auto) 0.6 Eos # (Auto) 0.1 Baso # (Auto) 0.1 Abs Immat Gran (auto) 0.15 H Absolute Neuts (auto) 4.1 Absolute Nucleated RBC 0.000 Nucleated RBC % 0.0 Puncture Site ABG pH ABG pCO2 ABG pO2 ABG PO2/FiO2 Ratio ABG HCO3 ABG O2 Saturation ABG O2 Content ABG Base Excess A-a Gradient Oxyhemoglobin Total Hemoglobin O2 Delivery Device O2 Liters/Min FiO2 Sodium 136 L Potassium 3.4 Chloride 109 H Carbon Dioxide 21 L Anion Gap 6 BUN 30 H Creatinine 2.07 H Estim Creat Clear Calc 30 Estimated GFR 33 L Glucose 177 H POC Capillary Glucose Calcium 7.7 L Total Bilirubin 0.5 AST 35 ALT 24 Alkaline Phosphatase 93 Ammonia Total Protein 6.1 L Albumin 2.6 L Quality VTE Prophylaxis VTE prophylaxis: pharmacologic ordered
[2025-03-08 08:29] LABS: NT Pro B Type Natriuretic Pept 15500 pg/mL (19.9-100)
[2025-03-08] MEDS: FUROSEMIDE 20 MG TABLET PO ×2 (09:28→17:22)
[2025-03-08] MEDS: GABAPENTIN 100 MG CAPSULE PO ×3 (09:28→17:22)
[2025-03-08] MEDS: OMEGA 3 POLYUNSAT FATTY ACIDS 1 GM CAP PO (09:29)
[2025-03-08] MEDS: PANTOPRAZOLE 40 MG TABLET PO (09:29)
[2025-03-08] MEDS: guaiFENesin 12 HR 600 MG TABCR 1200 MG PO ×2 (09:29→20:39)
[2025-03-08] MEDS: CLOPIDOGREL BISULFATE 75 MG TABLET PO (09:30)
[2025-03-08] MEDS: SODIUM CHLORIDE 0.9% IV 1,000 ML 100 ML IV CONT (09:34)
[2025-03-08] MEDS: CEFPODOXIME PROXETIL 200 MG TABLET PO ×2 (13:00→20:39)
[2025-03-08] MEDS: ATORVASTATIN 40 MG TABLET 80 MG PO (20:38)
[2025-03-08] MEDS: ENOXAPARIN 40 MG/0.4 ML SYRINGE SUB-Q (20:39)
[2025-03-08] MEDS: MELATONIN 5 MG TABLET 10 MG PO (20:39)
[2025-03-09] VITALS (12 sets, daily range): BP systolic 154–188; BP diastolic 53–67; PULSE 59–71; RESP 14–20; TEMP 35.9–36.7; O2SAT 96–99
[2025-03-09 05:14] LABS: Hematocrit 27.2 % (42.0-52.0); Hemoglobin 8.3 g/dL (14.0-18.0); Immature Granulocyte Percent A 2.6 % (0-0.5); Lymphocytes Absolute Auto 1.27 K/mm3 (0.9-3.2); Mean Corpuscular HGB Conc 30.5 g/dl (32-36); Mean Corpuscular Hemoglobin 26.9 pg (26-34); Mean Corpuscular Volume 88.3 fl (80-100); Nucleated Red Blood Cells Absolute Auto 0.000 K/mm3 (0.0-0.012); Nucleated Red Blood Cells Perc 0.0 % (0.0-0.2); Platelet Count Result 154 k/mm3 (150-375); Red Blood Count 3.08 M/mm3 (4.6-6.20); White Blood Count 6.5 K/mm3 (4.5-10.0)
[2025-03-09 05:35] LABS: Alanine Aminotransferase 24 U/L (6-50); Albumin Level 2.5 g/dL (3.5-5.1); Alkaline Phosphatase 87 U/L (38-126); Anion Gap 8 mmol/L (4-12); Aspartate Amino Transferase 31 U/L (17-59); Bilirubin,Total 0.4 mg/dL (0.2-1.3); Blood Urea Nitrogen 31 mg/dL (9-20); Calcium 7.6 mg/dL (8.4-10.2); Carbon Dioxide 21 mmol/L (22-30); Chloride 107 mmol/L (98-107); Estimated CRCL calculation 31 ml/min; Estimated Glomerular Filt Rate 34; Glucose 163 mg/dL (65-110); Potassium 3.3 mmol/L (3.4-5.0); Sodium 136 mmol/L (137-145); Total Protein 6.0 g/dL (6.3-8.2)
[2025-03-09] MEDS: guaiFENesin 12 HR 600 MG TABCR 1200 MG PO ×2 (09:05→20:52)
[2025-03-09] MEDS: CEFPODOXIME PROXETIL 200 MG TABLET PO ×2 (09:06→20:52)
[2025-03-09] MEDS: OMEGA 3 POLYUNSAT FATTY ACIDS 1 GM CAP PO (09:07)
[2025-03-09] MEDS: FUROSEMIDE 20 MG TABLET PO ×2 (09:07→17:48)
[2025-03-09] MEDS: CLOPIDOGREL BISULFATE 75 MG TABLET PO (09:07)
[2025-03-09] MEDS: GABAPENTIN 100 MG CAPSULE PO ×3 (09:07→17:48)
--- NOTE | 2025-03-09 14:31 | P.PNIM_ITS ---
Assessment and Plan Assessment and Plan (1) Acute UTI: Code(s): N39.0 - Urinary tract infection, site not specified Status: Acute Assessment and Plan: * AMS on presentation to ED * UA with 3+ protein, trace glucose, 2+ blood, positive nitrate, 3+ leukocyte esterase, 3-5 RBC, > 100 WBC, no bacteria seen * UC - gram (-) bacilli * previous micro reviewed * started on Ceftriaxone on 03/04 * 03/07: A&O x3, blood cultures negative for growth, urine culture growing klebsiella pneumoniae * Start Cefpodoxime - last day on 03/10 (2) Hallucinations, visual: Code(s): R44.1 - Visual hallucinations Status: Acute Assessment and Plan: * Likely multifactorial: vascular dementia, metabolic encephalopathy * reports prior history of hallucinations with concurrent infections * WBC wnl * Ammonia <9 * UTI, being tx w/ abx * Head CT No gross intracranial mass effect or hemorrhage. Old right-sided lacunar infarctions and chronic white vessel ischemic appearing changes. * CXR: Vascular congestion * May consider neurology consult (3) Acute hypoxemic respiratory failure: Code(s): J96.01 - Acute respiratory failure with hypoxia Status: Acute Assessment and Plan: * Chest x-ray: no [place] pulmonary edema or large effusion. Did require supplemental O2 during last admission and was required at discharge. * Echo * EF 60-65%, mild concentric increased left ventricular wall thickness, grade 3 diastolic dysfunction, E/e' 21 elevated, mildly enlarged LA chamber, mild AVS, mild MVR/TVR, severely calcified mitral valve annulus * V/Q scan with low probability of pulmonary emboli * 98% on 2L NC * Chest CT: Diffuse patchy groundglass opacities with small pleural effusions and dependent atelectasis. In the setting of hypoxia this may represent pulmonary edema. Differential diagnosis includes diffuse inflammatory or infectious process depending on clinical context. * ABG concerning for hypoxemia, although discussed case with Dr. Braun who agrees likely sample containing some venous blood, and given appropriate O2 saturations on 2 L nasal cannula * Likely cardiogenic, although output balance is appropriate * Will increase Lasix to 20 mg b.i.d. and reassess volume status * Still congested as of 03/09, however I/Os are reassuring - continue to monitor over next 24 hours (4) FARHAN (acute kidney injury): Code(s): N17.9 - Acute kidney failure, unspecified Status: Acute Assessment and Plan: * Cr 2.42 on admission (baseline Cr: 2) * UA as above * s/p 1L of IVF, f/u repeat Cr 2.32 * monitor I&Os * 03/08: Cr 2.34 -> 2.04 -> 1.99 * Discontinued IVFs (5) Atrial flutter: Code(s): I48.92 - Unspecified atrial flutter Status: Acute Assessment and Plan: * Consider Eliquis once FARHAN improves Subjective Date/time seen: 03/09/25 14:31 Interval history: 64-year-old male with a past medical history of GERD, CKD, HFpEF, DM 2, multiple CVAs, afib, CAD s/p CABG x 3, vascular dementia, PAD presents to the ED on 03/04/2025 with altered mental status per his . 03/09/2025 Patient sitting comfortably in bed at time of examination. Remains afebrile without leukocytosis. IVFs have been stopped as of yesterday, diuresis with increased Lasix also initiated. Output has improved and will encourage oral intake but we are trending in right direction in terms of fluid balance. Still congested on exam, although patient has no complaints at this time. Will prefer to keep one more day given lung findings. will take patient home at discharge. Review of Systems Review of Systems: All systems reviewed & are unremarkable except as noted in HPI and below Exam Narrative: GENERAL:Chronically ill-appearing, no acute distress. HEAD: Normocephalic, atraumatic. EYES: PERRLA. Conjunctivae clear. NOSE: Normal no drainage. THROAT: Pharynx clear, no exudate. NECK: Trachea midline. No adenopathy, no masses. RESPIRATORY: Congestion, improving. No wheezing or crackles. Airway patent, respirations nonlabored. CARDIOVASCULAR: irregular rhythm GASTROINTESTINAL: Abdomen is soft and nontender. No organomegaly. Bowel sounds normal in all quadrants. GENITOURINARY: Defer MUSCULOSKELETAL: Moves all extremities. No gross deformities. SKIN: Warm, dry, normal color. missing toenail to right great toe with ecchymosis on tip of toe. Ecchymosis to surrounding toes. NEURO: A&O X4. Speech clear . PSYCHIATRIC: Normal interaction Objective Data Vital Signs Vital Signs: Vital Signs - 24 hr 03/08/25 15:19 03/08/25 16:00 03/08/25 20:00 Temperature Pulse Rate 65 71 69 Respiratory Rate Blood Pressure Pulse Oximetry Oxygen Delivery Oxygen Flow Rate 03/08/25 20:08 03/08/25 20:49 03/09/25 00:00 Temperature 97.0 F L Pulse Rate 83 61 Respiratory Rate 20 Blood Pressure 153/51 H Pulse Oximetry 97 93 Oxygen Delivery Nasal Cannula Oxygen Flow Rate 1 03/09/25 04:00 03/09/25 04:57 03/09/25 08:00 Temperature 96.7 F L Pulse Rate 60 59 L 62 Respiratory Rate 20 Blood Pressure 154/53 H Pulse Oximetry 97 Oxygen Delivery Oxygen Flow Rate 03/09/25 09:00 03/09/25 09:06 03/09/25 12:00 Temperature Pulse Rate 67 68 Respiratory Rate Blood Pressure Pulse Oximetry 97 Oxygen Delivery Nasal Cannula Oxygen Flow Rate 1 03/09/25 14:21 Temperature Pulse Rate Respiratory Rate Blood Pressure Pulse Oximetry 98 Oxygen Delivery Nasal Cannula Oxygen Flow Rate 1 Intake/Output Intake/Output: Intake & Output 03/06/25 03/07/25 03/08/25 03/09/25 23:59 23:59 23:59 23:59 Intake Total 3490 2290 2600 200 Output Total 1300 1925 1750 900 Balance 2190 365 850 -700 Meds/Results Medications: Active Medications Generic Name Dose Route Start Last Admin Trade Name Freq PRN Reason Stop Dose Admin Atorvastatin Calcium 80 mg 03/04/25 21:00 03/08/25 20:38 Atorvastatin 40 Mg Tablet PO 80 mg HS GEOFFREY Administration Carvedilol 25 mg 03/04/25 17:55 03/09/25 09:06 Carvedilol 25 Mg Tablet PO 25 mg Q12HR GEOFFREY Administration Cefpodoxime Proxetil 200 mg 03/08/25 10:00 03/09/25 09:06 Cefpodoxime Proxetil 200 Mg Tablet PO 03/10/25 21:01 200 mg Q12HR GEOFFREY Administration Clopidogrel Bisulfate 75 mg 03/05/25 09:00 03/09/25 09:07 Clopidogrel Bisulfate 75 Mg Tablet PO 75 mg DAILY GEOFFREY Administration Dextrose 12.5 gm 03/04/25 12:54 Dextrose 50% 25 Gm/50 Ml Syringe IV PUSH PRN PRN Hypoglycemia Protocol Enoxaparin Sodium 40 mg 03/04/25 21:00 03/08/25 20:39 Enoxaparin 40 Mg/0.4 Ml Syringe SUB-Q 40 mg HS GEOFFREY Administration Fish Oil 1 gm 03/05/25 09:00 03/09/25 09:07 [place] 3 Polyunsat Fatty Acids 1 Gm Cap PO 1 gm DAILY GEOFFREY Administration Furosemide 20 mg 03/08/25 17:00 03/09/25 09:07 Furosemide 20 Mg Tablet PO 20 mg BID GEOFFREY Administration Gabapentin 100 mg 03/04/25 19:40 03/09/25 12:39 Gabapentin 100 Mg Capsule PO 100 mg TID GEOFFREY Administration Glucagon 1 mg 03/04/25 12:54 Glucagon For Inj 1 Mg Vial IM PRN PRN Hypoglycemia Protocol Glucose 15 gm 03/04/25 12:54 Glucose Oral Gel 15 Gm Of Glucse In 37.5 Gm Tube PO PRN PRN Hypoglycemia Protocol Guaifenesin 1,200 mg 03/04/25 21:00 03/09/25 09:05 Guaifenesin 12 Hr 600 Mg Tabcr PO 1,200 mg Q12HR GEOFFREY Administration Hydralazine HCl 10 mg 03/08/25 15:18 03/08/25 15:28 Hydralazine Hcl 20 Mg/Ml Vial IV PUSH 10 mg Q8H PRN Administration Blood Pressure - High Dextrose 1,000 mls @ 100 mls/hr 03/04/25 12:54 Dextrose 5% 1,000 Ml IVPB PRN PRN Hypoglycemia Protocol Insulin Aspart 2 - 5 units 03/04/25 17:00 03/09/25 11:45 Insulin Aspart (*Bkc) 100 Units/Ml SUB-Q Not Given TIDWM GEOFFREY Protocol Levetiracetam 750 mg 03/04/25 21:00 03/09/25 09:06 Levetiracetam 250 Mg Tablet PO 750 mg Q12HR GEOFFREY Administration Melatonin 10 mg 03/04/25 21:00 03/08/25 20:39 Melatonin 5 Mg Tablet PO 10 mg HS GEOFFREY Administration Paroxetine HCl 40 mg 03/05/25 09:00 03/09/25 09:05 Paroxetine 20 Mg Tablet PO 40 mg DAILY GEOFFREY Administration Ramipril 5 mg 03/05/25 09:00 03/09/25 09:07 Ramipril 5 Mg Capsule PO 5 mg DAILY GEOFFREY Administration Radiology Results: ITS Impressions Chest X-Ray 03/04/25 11:37 IMPRESSION: 1. Enlarged heart shadow with vascular congestion; no [place] pulmonary edema or large effusion. Head CT 03/04/25 11:38 IMPRESSION: 1. No gross intracranial mass effect or hemorrhage. 2. Old right-sided lacunar infarctions and chronic white vessel ischemic appearing changes. Pulmonary Perfusion Imaging 03/04/25 15:48 IMPRESSION: Low probability for pulmonary embolus. Chest CT 03/08/25 13:23 IMPRESSION: 1. Diffuse patchy groundglass opacities with small pleural effusions and dependent atelectasis. In the setting of hypoxia this may represent pulmonary edema. Differential diagnosis includes diffuse inflammatory or infectious process depending on clinical context. 2: Moderate cardiomegaly with extensive atherosclerotic cardiovascular disease status post CABG. Labs Labs: Laboratory Results - last 24 hr 03/08/25 03/08/25 03/09/25 17:26 20:12 04:30 WBC 6.5 RBC 3.08 L Hgb 8.3 L Hct 27.2 L MCV 88.3 MCH 26.9 MCHC 30.5 L RDW 13.4 Plt Count 154 MPV 11.0 H Immature Gran % (Auto) 2.6 H Neut % (Auto) 64.3 Lymph % (Auto) 19.4 [place] % (Auto) 10.7 H Eos % (Auto) 2.1 Baso % (Auto) 0.9 Lymph # (Auto) 1.27 [place] # (Auto) 0.7 H Eos # (Auto) 0.1 Baso # (Auto) 0.1 Abs Immat Gran (auto) 0.17 H Absolute Neuts (auto) 4.2 Absolute Nucleated RBC 0.000 Nucleated RBC % 0.0 Sodium 136 L Potassium 3.3 L Chloride 107 Carbon Dioxide 21 L Anion Gap 8 BUN 31 H Creatinine 1.99 H Estim Creat Clear Calc 31 Estimated GFR 34 L Glucose 163 H POC Capillary Glucose 168 H 215 H Calcium 7.6 L Total Bilirubin 0.4 AST 31 ALT 24 Alkaline Phosphatase 87 Total Protein 6.0 L Albumin 2.5 L 03/09/25 03/09/25 07:42 11:36 WBC RBC Hgb Hct MCV MCH MCHC RDW Plt Count MPV Immature Gran % (Auto) Neut % (Auto) Lymph % (Auto) [place] % (Auto) Eos % (Auto) Baso % (Auto) Lymph # (Auto) [place] # (Auto) Eos # (Auto) Baso # (Auto) Abs Immat Gran (auto) Absolute Neuts (auto) Absolute Nucleated RBC Nucleated RBC % Sodium Potassium Chloride Carbon Dioxide Anion Gap BUN Creatinine Estim Creat Clear Calc Estimated GFR Glucose POC Capillary Glucose 159 H 177 H Calcium Total Bilirubin AST ALT Alkaline Phosphatase Total Protein Albumin Quality VTE Prophylaxis VTE prophylaxis: pharmacologic ordered
[2025-03-09] MEDS: DOCUSATE SODIUM 100 MG CAPSULE PO (18:22)
[2025-03-09] MEDS: ATORVASTATIN 40 MG TABLET 80 MG PO (20:52)
[2025-03-09] MEDS: MELATONIN 5 MG TABLET 10 MG PO (20:53)
[2025-03-09] MEDS: ENOXAPARIN 40 MG/0.4 ML SYRINGE SUB-Q (20:53)
[2025-03-10] VITALS (11 sets, daily range): BP systolic 153–171; BP diastolic 58–71; PULSE 63–76; RESP 19–20; TEMP 35.9–36.5; O2SAT 87–98
[2025-03-10 05:24] LABS: Hematocrit 29.4 % (42.0-52.0); Hemoglobin 9.0 g/dL (14.0-18.0); Immature Granulocyte Percent A 3.7 % (0-0.5); Lymphocytes Absolute Auto 1.49 K/mm3 (0.9-3.2); Mean Corpuscular HGB Conc 30.6 g/dl (32-36); Mean Corpuscular Hemoglobin 27.1 pg (26-34); Mean Corpuscular Volume 88.6 fl (80-100); Nucleated Red Blood Cells Absolute Auto 0.000 K/mm3 (0.0-0.012); Nucleated Red Blood Cells Perc 0.0 % (0.0-0.2); Platelet Count Result 157 k/mm3 (150-375); Red Blood Count 3.32 M/mm3 (4.6-6.20); White Blood Count 5.6 K/mm3 (4.5-10.0)
[2025-03-10 05:47] LABS: Alanine Aminotransferase 24 U/L (6-50); Albumin Level 2.6 g/dL (3.5-5.1); Alkaline Phosphatase 88 U/L (38-126); Anion Gap 7 mmol/L (4-12); Aspartate Amino Transferase 31 U/L (17-59); Bilirubin,Total 0.5 mg/dL (0.2-1.3); Blood Urea Nitrogen 31 mg/dL (9-20); Calcium 7.9 mg/dL (8.4-10.2); Carbon Dioxide 20 mmol/L (22-30); Chloride 108 mmol/L (98-107); Estimated CRCL calculation 33 ml/min; Estimated Glomerular Filt Rate 37; Glucose 147 mg/dL (65-110); Potassium 3.2 mmol/L (3.4-5.0); Sodium 135 mmol/L (137-145); Total Protein 6.1 g/dL (6.3-8.2)
[2025-03-10] MEDS: guaiFENesin 12 HR 600 MG TABCR 1200 MG PO (08:49)
[2025-03-10] MEDS: CLOPIDOGREL BISULFATE 75 MG TABLET PO (08:49)
[2025-03-10] MEDS: CEFPODOXIME PROXETIL 200 MG TABLET PO (08:49)
[2025-03-10] MEDS: GABAPENTIN 100 MG CAPSULE PO ×2 (08:50→12:12)
[2025-03-10] MEDS: FUROSEMIDE 20 MG TABLET PO (08:51)
[2025-03-10] MEDS: OMEGA 3 POLYUNSAT FATTY ACIDS 1 GM CAP PO (08:52)
[2025-03-10] MEDS: POTASSIUM CHLORIDE 20 MEQ ER TABLET 40 MEQ PO (08:52)
--- NOTE | 2025-03-10 09:17 | P.DS_ITS ---
DS: Admitting Diagnosis Discharge Date 03/10/2025 Admitting Diagnosis UTI DS: Discharge Diagnosis Discharge Diagnosis (1) Acute UTI: Code(s): N39.0 - Urinary tract infection, site not specified Status: Acute (2) Hallucinations, visual: Code(s): R44.1 - Visual hallucinations Status: Acute (3) Acute hypoxemic respiratory failure: Code(s): J96.01 - Acute respiratory failure with hypoxia Status: Acute (4) FARHAN (acute kidney injury): Code(s): N17.9 - Acute kidney failure, unspecified Status: Acute (5) Atrial flutter: Code(s): I48.92 - Unspecified atrial flutter Status: Acute DS: Summary Hospital Course Reason for hospitalization: [facility] Hospital Course: The patient is a 64-year-old male with extensive cardiovascular, neurologic, and metabolic comorbidities who presented on 03/04/25 with altered mental status reported by his . On arrival, he was alert and oriented, afebrile, and hemodynamically stable. Initial evaluation revealed leukocytosis, acute kidney injury on chronic kidney disease, abnormal urinalysis concerning for infection, and hypoxemia on arterial blood gas despite reassuring pulse oximetry. Imaging showed chronic cerebrovascular changes on head CT and vascular congestion without overt pulmonary edema on chest X-ray, with V/Q scan demonstrating low probability for pulmonary embolism. He was treated empirically with IV ceftriaxone for presumed UTI, later transitioned to oral cefpodoxime after urine culture grew?Klebsiella pneumoniae, with completion planned for 03/10; blood cultures remained negative. His mental status fluctuations and visual hallucinations were felt to be multifactorial in the setting of vascular dementia and metabolic encephalopathy related to infection, with improvement noted as infection was treated. FARHAN improved with initial IV fluids followed by discontinuation and careful monitoring of intake and output, with creatinine trending down toward baseline. He developed ongoing hypoxemia requiring low-flow oxygen; further evaluation including CT chest and echocardiogram suggested volume overload and HFpEF with grade III diastolic dysfunction, elevated filling pressures, and preserved EF. Diuresis was initiated with increased furosemide dosing, resulting in improved urine output and gradual improvement in congestion, though mild hypoxia persisted on 1?2 L nasal cannula. Atrial flutter was rate controlled on carvedilol, with anticoagulation deferred pending renal recovery. By 03/09/25, the patient remained clinically stable, afebrile, with improving renal function and respiratory status, tolerating oral intake, and plans were made for continued diuresis, completion of antibiotics, and anticipated discharge home with his . By 03/10, intake/output continues to trend in the right direction with higher frequency diuresis. Congestion still present although improving and patient states he feels much better today than yesterday. Will plan for discharge home with an home O2 evaluation prior to patient leaving the unit. Patient and are amenable to this plan. Status at Discharge Functional status at discharge: uses cane/walker Overall status at discharge: patient is progressing back to baseline Time Spent with Patient Time attestation: Total time spent providing and/or coordinating discharge services: 32 Exam Narrative: GENERAL:Chronically ill-appearing, no acute distress. HEAD: Normocephalic, atraumatic. EYES: PERRLA. Conjunctivae clear. NOSE: Normal no drainage. THROAT: Pharynx clear, no exudate. NECK: Trachea midline. No adenopathy, no masses. RESPIRATORY: Congestion improving, improving. No wheezing or crackles. Airway patent, respirations nonlabored. CARDIOVASCULAR: irregular rhythm GASTROINTESTINAL: Abdomen is soft and nontender. No organomegaly. Bowel sounds normal in all quadrants. GENITOURINARY: Defer MUSCULOSKELETAL: Moves all extremities. No gross deformities. SKIN: Warm, dry, normal color. missing toenail to right great toe with ecchymosis on tip of toe. Ecchymosis to surrounding toes. NEURO: A&O X4. Speech clear . PSYCHIATRIC: Normal interaction DS: Data Data Completed and Pending Labs on day of discharge: Labs from last 24 hours 03/10/25 03/10/25 03/09/25 07:53 04:30 19:35 WBC 5.6 RBC 3.32 L Hgb 9.0 L Hct 29.4 L MCV 88.6 MCH 27.1 MCHC 30.6 L RDW 13.3 Plt Count 157 MPV 10.8 H Immature Gran % (Auto) 3.7 H Neut % (Auto) 53.2 Lymph % (Auto) 26.5 [place] % (Auto) 11.9 H Eos % (Auto) 3.6 Baso % (Auto) 1.1 Lymph # (Auto) 1.49 [place] # (Auto) 0.7 H Eos # (Auto) 0.2 Baso # (Auto) 0.1 Abs Immat Gran (auto) 0.21 H Absolute Neuts (auto) 3.0 Absolute Nucleated RBC 0.000 Nucleated RBC % 0.0 Sodium 135 L Potassium 3.2 L Chloride 108 H Carbon Dioxide 20 L Anion Gap 7 BUN 31 H Creatinine 1.86 H Estim Creat Clear Calc 33 Estimated GFR 37 L Glucose 147 H POC Capillary Glucose 153 H 229 H Calcium 7.9 L Total Bilirubin 0.5 AST 31 ALT 24 Alkaline Phosphatase 88 Total Protein 6.1 L Albumin 2.6 L 03/09/25 03/09/25 17:12 11:36 WBC RBC Hgb Hct MCV MCH MCHC RDW Plt Count MPV Immature Gran % (Auto) Neut % (Auto) Lymph % (Auto) [place] % (Auto) Eos % (Auto) Baso % (Auto) Lymph # (Auto) [place] # (Auto) Eos # (Auto) Baso # (Auto) Abs Immat Gran (auto) Absolute Neuts (auto) Absolute Nucleated RBC Nucleated RBC % Sodium Potassium Chloride Carbon Dioxide Anion Gap BUN Creatinine Estim Creat Clear Calc Estimated GFR Glucose POC Capillary Glucose 166 H 177 H Calcium Total Bilirubin AST ALT Alkaline Phosphatase Total Protein Albumin Preliminary micro results at discharge 03/04/25 12:10 Blood Culture - Preliminary Blood 03/04/25 12:03 Blood Culture - Preliminary Blood Discharge Plan Discharge Attending physician on discharge: Nabil Frank Consulting providers: Varghese Vail; Matt Yusuf; David Braun Discharging Clinician: Varghese Vail Anticipated Discharge Date/Time: 03/10/25 09:14 Patient Disposition: Home Activity: as tolerated Diet: heart healthy Discharge Instructions: Discharge disposition: Home Take medications as prescribed. You will be discharged on Cefpodoxime for 2 additional days, take this twice daily. Hold your Omeprazole until Saturday of this week. Monitor blood pressures Take caution while standing, rising, or moving Change positions slowly taking a break between each position change If you standing feel dizzy sit back down and take a break Encouraged to continue with yearly vaccinations Return to the emergency department if you develop sudden shortness of breath, chest pain, nausea, vomiting, upset stomach or intractable diarrhea Return to the emergency department if you develop fever greater than 101.5 Follow-up with the primary care physician within 1-2 weeks Thank you for [facility] for your healthcare needs Patient Instructions: Antibiotic Form, Heart Failure (GEN) Patient Language: Israeli Stand Alone Forms: General Discharge Information Follow-up/Referrals: Sharmila,Shane Miranda MD [Primary Care Provider, Unknown] Discharge Medications: New cefpodoxime 200 mg Tablet 200 mg PO Q12HR Qty: 4 0RF Continued paroxetine HCl 20 mg tablet 40 mg PO DAILY ramipril 10 mg capsule 5 mg PO DAILY glipizide 5 mg tablet 10 mg PO BID Patient Comments: out 2-3 days ago unable to refill until dr appointment on october 01 clopidogrel 75 mg tablet 75 mg PO DAILY Patient Comments: pt ran out of meds about 2-3 days ago informed physician reported needed to wait until appointment on october 01 to get med refilled guaifenesin [Mucus Relief ER] 600 mg Tablet Extended Release 12hr 1,200 mg PO Q12HR Qty: 14 0RF atorvastatin 80 mg Tablet 80 mg PO HS 30 Days Qty: 30 0RF melatonin 3 mg tablet 10 mg PO HS insulin lispro 100 unit/mL Insulin Pen 1 sliding scale dose SUBCUT USEASDIRECTD Rx Instructions: pt does have home sliding scale doesn't need often sugars are controlled carvedilol [Coreg] 25 mg Tablet 25 mg PO BIDWM Qty: 60 0RF furosemide 20 mg tablet 20 mg PO DAILY Qty: 30 0RF albuterol sulfate 90 mcg/actuation HFA aerosol inhaler 2 puff inhalation PRN PRN (Reason: shortness of breath or wheezing) levetiracetam 250 mg Tablet 750 mg PO Q12HR Qty: 90 0RF omega 5-rus-vws-fish oil [Fish Oil] 60-90-500 mg Capsule 1 cap PO DAILY gabapentin 100 mg Capsule 100 mg PO TID Qty: 90 0RF Held omeprazole 20 mg capsule,delayed release(DR/EC) 20 mg PO DAILY Hold Instructions: Resume on 03/13/25. Date of admission: 03/04/25 12:36 Primary Care Provider: Sharmila,Shane Miranda Admitting Provider: Cuong Brown Attending physician on admission: Cuong Brown Condition: Stable Quality VTE Prophylaxis VTE prophylaxis: pharmacologic ordered
--- NOTE | 2025-03-10 10:27 | PCNFU ---
Nutrition Follow-Up Complete: Increased Protein needs as related to wounds as evidenced by stage II Pressure ulcer reported. Goal:Adequate Intake of at least 75% of meals/supplements Pt progressing towards goal Pt current nutrition is Diabetic / heart healthy, CHRISTINA BID. Nutrition recommendation: continue with current plan of care Last recorded weight is 78.5 kg. Bowel Motility: +BM 03/07 Labs Reviewed: Hgb:9.0, HCT:29.4, Alb:2.6, NA:135, K:3.2, BUN:31, Cr:1.86, Glu:147 Meds Noted: novolog, lovenox, lasix Skin: Stage II to buttocks Additional Notes: Pt continues on a diabetic heart healthy diet, intake 50-75% most meals. CHRISTINA BID in place for wound healing. Agree with orders, encourage PO Intake. RD will monitor weight, labs, skin, diet orders, meds every 7 days .
--- NOTE | 2025-03-10 10:58 | HOMEO2EVAL ---
Evaluation was performed at [facility] Home Oxygen Evaluation RC: Home Oxygen (O2) Evaluation Start: 03/10/25 09:14 Freq: ONCE Status: Active Protocol: RPE Activity Type Activity Date Activity User E-sign Co-sign Detail Recorded Client Recorded Date Recorded By Document 03/10/25 09:50 [facility] [id number] 03/10/25 10:58 [facility] Document 03/10/25 09:55 [facility] [id number] 03/10/25 10:58 [facility] Document 03/10/25 10:05 [facility] [id number] 03/10/25 10:58 [facility] 03/10/25 03/10/25 03/10/25 09:50 09:55 10:05 Home O2 Evaluation [Oxygen] -Test Phase Resting Resting Exercise -Oxygen Delivery Room Air Nasal Cannula Nasal Cannula -Oxygen Flow Rate (L/min) 1 1 [Pulse Oximetry] -Pulse Oximetry (90-100 %) 87 L 90 92 [Pulse Rate] -Pulse Rate (60-100 beats/min) 67 69 67 [Charges] -Evaluation Charges O2 Evaluation by Pulmonary
--- NOTE | 2025-03-10 11:00 | PCRCNOTE ---
HOME O2 EVAL COMPLETE. PATIENT REQUIRES 1 LPM WITH REST AND ACTIVITY. RN NOTIFIED. HOME O2 SET UP WITH IV RESPIRATORY CARE
[2025-03-10] MEDS: INSULIN ASPART (*BKC) 100 UNITS/ML SUB-Q (12:12)
== END 2025-03-10 14:45 | disposition home or self-care (01) | DRG 689 ==
LOC: ANHED 12:06 → ANH3MEDSUR 13:32 → ANH2MED 14:55
PROVIDERS: Nurse Practitioner Adult Health; Admitting Provider General Practice; Emergency Provider Emergency Medicine; PCP Internal Medicine; Visit Provider Physician Assistant
DX: N39.0 Urinary tract infection, site not specified (principal); G93.41 Metabolic encephalopathy; J96.01 Acute respiratory failure with hypoxia; N17.9 Acute kidney failure, unspecified; I48.92 Unspecified atrial flutter; I69.354 Hemiplegia and hemiparesis following cerebral infarction affecting left non-dominant side; I13.0 Hypertensive heart and chronic kidney disease with heart failure and stage 1 through stage 4 chronic kidney disease, or unspecified chronic kidney disease; I50.32 Chronic diastolic (congestive) heart failure; I69.322 Dysarthria following cerebral infarction; I69.391 Dysphagia following cerebral infarction; R13.10 Dysphagia, unspecified; B96.1 Klebsiella pneumoniae [K. pneumoniae] as the cause of diseases classified elsewhere; E11.22 Type 2 diabetes mellitus with diabetic chronic kidney disease; E11.42 Type 2 diabetes mellitus with diabetic polyneuropathy; F01.50 Vascular dementia, unspecified severity, without behavioral disturbance, psychotic disturbance, mood disturbance, and anxiety; I25.2 Old myocardial infarction; I48.0 Paroxysmal atrial fibrillation; I25.10 Atherosclerotic heart disease of native coronary artery without angina pectoris; K21.9 Gastro-esophageal reflux disease without esophagitis; N18.30 Chronic kidney disease, stage 3 unspecified; R44.1 Visual hallucinations; Z20.822 Contact with and (suspected) exposure to COVID-19; Z79.02 Long term (current) use of antithrombotics/antiplatelets; Z79.84 Long term (current) use of oral hypoglycemic drugs; Z79.4 Long term (current) use of insulin; Z95.1 Presence of aortocoronary bypass graft; Z95.5 Presence of coronary angioplasty implant and graft; Z74.01 Bed confinement status
CPT/HCPCS: 36415; 36600; 70450; 71045; 71250; 78582; 80048; 80053; 81001; 82077; 82140; 82805; 82948; 83605; 83880; 84443; 84484; 85018; 85025; 85380; 87040; 87086; 87186; 87637; 93005; 94618; 94640; 99285; A9270; A9540; A9558; C8929; J0360; J0696; J1650; J1815; J7030; Q9957